=== PATIENT | female | born 1995 | race Caucasian/White ===

== ENCOUNTER 2017-11-02 07:22 | Emergency (ER) | payer SELFPAY ==
--- NOTE | 2017-11-02 09:01 | EDPHYS ---
Physician Documentation [facility] Name: Shanna Estrella Age: 22 yrs Sex: Female : 1995 Arrival Date: 11/02/2017 Time: 07:26 Bed 14 Private MD: ED Physician Francisco Becerra HPI: 11/02 08:15 This 22 yrs old Female presents to ER via Wheelchair with complaints of Ankle rico Injury. 08:15 The patient presents with decreased range of motion, pain. The complaints affect the rico right ankle. 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 - Social history:: Smoking status: Patient uses tobacco products, smokes one pack cigarettes per day. ROS: 08:15 Constitutional: Negative for fever, chills, and weight loss, Eyes: Negative for injury, rico pain, redness, and discharge, ENT: Negative for injury, pain, and discharge, Neck: Negative for injury, pain, and swelling, Cardiovascular: Negative for chest pain, palpitations, and edema, Respiratory: Negative for shortness of breath, cough, wheezing, and pleuritic chest pain, Abdomen/GI: Negative for abdominal pain, nausea, vomiting, diarrhea, and constipation, Back: Negative for injury and pain, : Negative for injury, bleeding, discharge, and swelling, Skin: Negative for injury, rash, and discoloration, Neuro: Negative for headache, weakness, numbness, tingling, and seizure, Psych: Negative for depression, anxiety, suicide ideation, homicidal ideation, and hallucinations, Allergy/Immunology: Negative for hives, rash, and allergies, Endocrine: Negative for neck swelling, polydipsia, polyuria, polyphagia, and marked weight changes, Hematologic/Lymphatic: Negative for swollen nodes, abnormal bleeding, and unusual bruising. 08:15 MS/extremity: Positive for injury or acute deformity, decreased range of motion, pain, swelling, tenderness, of the right ankle and lateral aspect of right foot. Exam: 08:15 Constitutional: This is a well developed, well nourished patient who is awake, alert, rico and in no acute distress. Head/Face: Normocephalic, atraumatic. Eyes: Pupils equal round and reactive to light, extra-ocular motions intact. Lids and lashes normal. Conjunctiva and sclera are non-icteric and not injected. Cornea within normal limits. Periorbital areas with no swelling, redness, or edema. ENT: Nares patent. No nasal discharge, no septal abnormalities noted. Tympanic membranes are normal and external auditory canals are clear. Oropharynx with no redness, swelling, or masses, exudates, or evidence of obstruction, uvula midline. Mucous membranes moist. Neck: Trachea midline, no thyromegaly or masses palpated, and no cervical lymphadenopathy. Supple, full range of motion without nuchal rigidity, or vertebral point tenderness. No Meningismus. Chest/axilla: Normal chest wall appearance and motion. Nontender with no deformity. No lesions are appreciated. Cardiovascular: Regular rate and rhythm with a normal S1 and S2. No gallops, murmurs, or rubs. Normal PMI, no JVD. No pulse deficits. Respiratory: Lungs have equal breath sounds bilaterally, clear to auscultation and percussion. No rales, rhonchi or wheezes noted. No increased work of breathing, no retractions or nasal flaring. Abdomen/GI: Soft, non-tender, with normal bowel sounds. No distension or tympany. No guarding or rebound. No evidence of tenderness throughout. Back: No spinal tenderness. No costovertebral tenderness. Full range of motion. Skin: Warm, dry with normal turgor. Normal color with no rashes, no lesions, and no evidence of cellulitis. Neuro: Awake and alert, GCS 15, oriented to person, place, time, and situation. Cranial nerves II-XII grossly intact. Motor strength 5/5 in all extremities. Sensory grossly intact. Cerebellar exam normal. Normal gait. Psych: Awake, alert, with orientation to person, place and time. Behavior, mood, and affect are within normal limits. 08:15 Musculoskeletal/extremity: ROM: limited active range of motion, limited passive range of motion, Circulation is intact in all extremities. Sensation intact. Compartment Syndrome exam of affected extremity: is normal. Joints: the right ankle displays deformity, pain at rest, painful range of motion, swelling, tenderness, DVT Exam: negative Homans' sign noted on exam, no appreciated bluish discoloration, no erythema, no increased warmth, pain, swelling, tenderness. Vital Signs: 07:36 BP 116 / 90; Pulse 108; Resp 17; Temp 99.1(O); Pulse Ox 99% on R/A; Weight 83.91 kg tw2 (R); Height 5 ft. 0 in. (152.40 cm) (R); Pain 8/10; 08:17 BP 111 / 84; Pulse 99; Resp 17; Pulse Ox 99% on R/A; tw2 09:30 BP 114 / 88; Pulse 98; Resp 17; Pulse Ox 99% on R/A; tw2 07:36 Body Mass Index 36.13 (83.91 kg, 152.40 cm) tw2 MDM: 07:30 Patient medically screened. [facility] 08:17 Data reviewed: vital signs, nurses notes, radiologic studies. [facility] 11/02 08:58 Order name: Urine Dipstick--Ancillary (enter results) 11/02 08:58 Order name: Urine --Ancillary (enter results) 11/02 07:40 Order name: Ankle Right 2 View XRAY 11/02 09:07 Order name: Urine --Ancillary [facility] 11/02 09:07 Order name: Urine Dipstick-Ancillary [facility] 11/02 07:57 Order name: Foot Right 2 View XRAY [facility] 11/02 08:26 Order name: Urine Dipstick-Ancillary (obtain specimen); Complete Time: 08:59 [facility] 11/02 08:26 Order name: Urine Test (obtain specimen); Complete Time: 08:59 [facility] 11/02 08:59 Order name: Post-op shoe; Complete Time: 09:03 [facility] 11/02 08:59 Order name: Crutches; Complete Time: 09:03 [facility] 11/02 09:19 Order name: RAD EDND Administered Medications: 09:12 Drug: Motrin 600 mg Route: PO; tw2 09:35 Follow up: Response: No adverse reaction tw2 Disposition: 11/02/17 09:00 Discharged to Home. Impression: Sprain of ankle, Nondisplaced fracture of fifth metatarsal bone, right foot - clinically. - Condition is Stable. - Discharge Instructions: Ankle Sprain, Metatarsal Fracture, Undisplaced. - Prescriptions for Ibuprofen 600 mg Oral Tablet - take 1 tablet by ORAL route every 8 hours As needed take with food; 21 tablet. Tylenol- Codeine #3 300-30 mg Oral Tablet - take 2 tablets by ORAL route every 6 hours As needed; 24 tablet. - Medication Reconciliation Form, Thank You Letter, Antibiotic Education, Prescription Opioid Use, Work release form form. - Follow up: Private Physician; When: 2 - 3 days; Reason: Recheck today's complaints, Continuance of care, Re-evaluation by your physician. Follow up: Tay Castorena MD; When: 2 - 3 days; Reason: Recheck today's complaints, Re-evaluation by your physician. - Problem is new. - Symptoms have improved. Signatures: Dispatcher [employer] Francisco Eagle MD MD cha Wise, Tara, RN RN tw2
--- NOTE | 2017-11-02 09:01 | ER ---
Nurse's Notes [facility] Name: Shanna Estrella Age: 22 yrs Sex: Female : 1995 Arrival Date: 11/02/2017 Time: 07:26 Bed 14 Private MD: Diagnosis: Sprain of ankle;Nondisplaced fracture of fifth metatarsal bone, right foot-clinically Presentation: 11/02 07:33 Presenting complaint: Patient states: I rolled my ankle yesterday, my right ankle, it tw2 hurts to walk on and i get a jolt of lightening when i try to put pressure on it. Transition of care: patient was not received from another setting of care. Onset of symptoms was November 01, 2017 at 08:00. Care prior to arrival: None. 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 - Social history:: Smoking status: Patient uses tobacco products, smokes one pack cigarettes per day. Screenin:38 Abuse screen: Denies threats or abuse. Nutritional screening: No deficits noted. tw2 Tuberculosis screening: No symptoms or risk factors identified. Fall Risk None identified. Assessment: 07:37 General: Appears in no apparent distress. obese, unkempt, Behavior is calm, tw2 cooperative, appropriate for age. Pain: Complains of pain in right ankle, right Achilles and anterior aspect of right ankle. Neuro: Level of Consciousness is awake, alert, obeys commands, Oriented to person, place, time, situation. Cardiovascular: Denies chest pain, shortness of breath, Capillary refill < 3 seconds Patient's skin is warm and dry. Respiratory: Airway is patent Respiratory effort is even, unlabored, Respiratory pattern is regular, symmetrical. GI: No signs and/or symptoms were reported involving the gastrointestinal system. : No signs and/or symptoms were reported regarding the genitourinary system. EENT: No signs and/or symptoms were reported regarding the EENT system. Derm: Skin is intact, is healthy with good turgor, Skin temperature is warm. Musculoskeletal: Swelling present in anterior aspect of right ankle. 08:18 Reassessment: Patient appears in no apparent distress at this time. No changes from tw2 previously documented assessment. Patient and/or family updated on plan of care and expected duration. Pain level reassessed. Patient is alert, oriented x 3, equal unlabored respirations, skin warm/dry/pink. 09:38 Reassessment: Patient appears in no apparent distress at this time. No changes from tw2 previously documented assessment. Patient and/or family updated on plan of care and expected duration. Pain level reassessed. Patient is alert, oriented x 3, equal unlabored respirations, skin warm/dry/pink. Vital Signs: 07:36 BP 116 / 90; Pulse 108; Resp 17; Temp 99.1(O); Pulse Ox 99% on R/A; Weight 83.91 kg tw2 (R); Height 5 ft. 0 in. (152.40 cm) (R); Pain 8/10; 08:17 BP 111 / 84; Pulse 99; Resp 17; Pulse Ox 99% on R/A; tw2 09:30 BP 114 / 88; Pulse 98; Resp 17; Pulse Ox 99% on R/A; tw2 07:36 Body Mass Index 36.13 (83.91 kg, 152.40 cm) tw2 ED Course: 07:26 Patient arrived in ED. mr 07:30 Francisco Becerra MD is Attending Physician. rico 07:32 Madison Laws, BANG is Primary Nurse. tw2 07:33 Triage completed. tw2 07:35 Bed in low position. Call light in reach. Pulse ox on. NIBP on. tw2 07:36 Arm band placed on. tw2 07:38 No provider procedures requiring assistance completed. tw2 09:00 Tay Castorena MD is Referral Physician. rico 09:01 Urine collected: clean catch specimen, cloudy, marika colored. jb1 09:16 Crutch training done. Ortho shoe applied to right foot. Right pedal pulse was present jb1 and within normal limits before and after application of ortho shoe. Capillary refill was two seconds before and after application of ortho shoe. 09:38 Patient did not have IV access during this emergency room visit. tw2 Administered Medications: 09:12 Drug: Motrin 600 mg Route: PO; tw2 09:35 Follow up: Response: No adverse reaction tw2 Outcome: 09:00 Discharge ordered by . rico 09:38 Discharged to home with crutches, with family. tw2 09:38 Condition: stable 09:38 Discharge instructions given to patient, family, Instructed on discharge instructions, follow up and referral plans. no drinking with medication, no driving heavy equipment, medication usage, safety practices, crutch walking, Demonstrated understanding of instructions, follow-up care, medications, crutch walking, Prescriptions given X 2. 09:39 Patient left the ED. tw2 Signatures: Lorenzo Ferrer jb1 Francisco Becerra MD MD cha Rivera, Maria mr Wise, Tara, RN RN tw2
[2017-11-02 09:06] LABS: Urine Blood NEGATIVE (NEG); Urine Glucose NEGATIVE (NEG); Urine Protein NEGATIVE (NEG); Urine Specific Gravity 1.025 (1.005-1.030); Urine pH 5.5 (5.0-7.0)
--- NOTE | 2017-11-02 09:19 | RAD REPORT ---
EXAM DESCRIPTION: RAD - Ankle Right 2 View - 11/02/2017 8:52 am CLINICAL HISTORY: Twisting injury to right ankle. COMPARISON: 12/07/2016 FINDINGS: Multiple projections of the right ankle and right foot are submitted. Small posterior calcaneal spur is noted. Mild lateral soft tissue swelling is seen. No acute fracture or dislocation is identified.
[2017-11-02] MEDS ORDERED: IBUPROFEN 400 MG TAB ONE (09:24)
[2017-11-02] MEDS ORDERED: IBUPROFEN 200 MG TAB PO ONE (09:24)
== END 2017-11-02 09:39 | disposition home or self-care (01) ==
LOC: ER 07:22
DX: S92.354A Nondisplaced fracture of fifth metatarsal bone, right foot, initial encounter for closed fracture (principal); S93.401A Sprain of unspecified ligament of right ankle, initial encounter; X58.XXXA Exposure to other specified factors, initial encounter; Y93.01 Activity, walking, marching and hiking; Y92.89 Other specified places as the place of occurrence of the external cause; Z88.0 Allergy status to penicillin; Z88.1 Allergy status to other antibiotic agents; Z88.8 Allergy status to other drugs, medicaments and biological substances; Z91.048 Other nonmedicinal substance allergy status; F17.210 Nicotine dependence, cigarettes, uncomplicated
CPT/HCPCS: 81003; 81025; 99284

== ENCOUNTER 2017-11-27 22:04 | Emergency (ER) | payer SELFPAY ==
[2017-11-27 23:10] LABS: Urine Blood NEGATIVE (NEG); Urine Glucose NEGATIVE (NEG); Urine Protein NEGATIVE (NEG); Urine Specific Gravity 1.025 (1.005-1.030)
[2017-11-27 23:10] LABS: Urine Specific Gravity 1.025 (1.005-1.030)
--- NOTE | 2017-11-28 01:09 | ER ---
Nurse's Notes [facility] Name: Shanna Estrella Age: 22 yrs Sex: Female : 1995 Arrival Date: 11/27/2017 Time: 22:07 Bed 14 Private MD: Diagnosis: Contusion of right foot Presentation: 11/27 22:14 Presenting complaint: Patient states: I took my medicine for pain for my broken foot la1 and I think its causing me to have abd cramping. Transition of care: patient was not received from another setting of care. Onset of symptoms was November 27, 2017. Care prior to arrival: None. 22:14 Method Of Arrival: EMS: [facility] la1 22:14 Acuity: ELI 4 la1 Historical: - Allergies: 22:14 Amoxicillin; la1 22:14 Lamictal; la1 22:14 lamotrigine; la1 22:14 PENICILLINS; la1 22:14 Tape; la1 - Home Meds: 11/28 01:22 not taking any, cannot afford them [Active]; tl2 - PMHx: 11/27 22:14 chiari malformation; Depression; epilepsy; hydrocephaly; Pneumonia; PTSD; la1 - Immunization history:: Adult Immunizations up to date. - Social history:: Smoking status: Patient uses tobacco products, smokes one-half pack cigarettes per day. Screenin:20 Abuse screen: Denies threats or abuse. Nutritional screening: No deficits noted. tl2 Tuberculosis screening: No symptoms or risk factors identified. Fall Risk Gait- Impaired (20 pts.). Assessment: 22:20 General: Appears in no apparent distress. uncomfortable, Behavior is calm, cooperative, tl2 appropriate for age. Pain: Complains of pain in right foot. Neuro: Level of Consciousness is awake, alert, obeys commands, Oriented to person, place, time, situation. Cardiovascular: Denies chest pain. Respiratory: Airway is patent Respiratory effort is even, unlabored, Respiratory pattern is regular, symmetrical. GI: Bowel sounds present X 4 quads. Abd is soft and non tender Reports cramping, nausea. : No signs and/or symptoms were reported regarding the genitourinary system. Derm: Skin is pink, warm \T\ dry. Musculoskeletal: Circulation, motion, and sensation intact. Range of motion: limited in right ankle. 23:57 Reassessment: Patient appears in no apparent distress at this time. Patient and/or tl2 family updated on plan of care and expected duration. Pain level reassessed. Patient is alert, oriented x 3, equal unlabored respirations, skin warm/dry/pink. 11/28 01:19 Reassessment: Patient appears in no apparent distress at this time. Patient and/or tl2 family updated on plan of care and expected duration. Pain level reassessed. Patient is alert, oriented x 3, equal unlabored respirations, skin warm/dry/pink. Pt verbalized understanding of discharge instructions, need for follow up and prescription usage. Kingsley bandage applied to right foot. Vital Signs: 11/27 22:14 BP 151 / 100; Pulse 94; Resp 16; Temp 97.7(TE); Pulse Ox 100% on R/A; Weight 86.18 kg; la1 Height 5 ft. 1 in. (154.94 cm); 23:54 BP 108 / 79; Pulse 90; Resp 17; Temp 98.2; Pulse Ox 98% ; tl1 11/28 01:19 BP 113 / 97; Pulse 95; Resp 20; Temp 98.3(O); Pulse Ox 98% on R/A; Pain 5/10; tl2 11/27 22:14 Body Mass Index 35.90 (86.18 kg, 154.94 cm) la1 ED Course: 11/27 22:07 Patient arrived in ED. do 22:14 Triage completed. la1 22:15 Arm band placed on right wrist. la1 22:20 Patient has correct armband on for positive identification. Bed in low position. Call tl2 light in reach. Side rails up X 1. 22:32 Manny Torres PA is PHCP. jr8 22:32 Matt Shields MD is Attending Physician. jr8 22:42 Rocío Jones RN is Primary Nurse. tl2 11/28 00:04 X-ray completed. Portable x-ray completed in exam room. Patient tolerated procedure jw2 well. 00:53 XRAY Foot RIGHT 3 View In Process Unspecified. EDMS 01:08 Damir Ragsdale MD is Referral Physician. jr8 01:19 No provider procedures requiring assistance completed. Patient did not have IV access tl2 during this emergency room visit. Administered Medications: No medications were administered Outcome: 01:08 Discharge ordered by MD. gonzalez 01:19 Discharged to home via wheelchair, with family. tl2 01:19 Condition: stable 01:19 Discharge instructions given to patient, Instructed on discharge instructions, follow up and referral plans. no driving heavy equipment, medication usage, Demonstrated understanding of instructions, follow-up care, medications, Prescriptions given X 1. 01:53 Patient left the ED. tl2 Signatures: Dispatcher [employer] EDMS Manny Torres PA PA jr8 Attema, Lee, RN RN la1 Yancy Bui RN RN tl1 Nathaly Abernathy Jenni jw2 Rocío Jones, RN RN tl2
--- NOTE | 2017-11-28 01:09 | EDPHYS ---
Physician Documentation [facility] Name: Shanna Estrella Age: 22 yrs Sex: Female : 1995 Arrival Date: 11/27/2017 Time: 22:07 Bed 14 Private MD: ED Physician Matt Shields HPI: 11/28 00:10 This 22 yrs old Female presents to ER via EMS with complaints of foot pain jr8 and abdominal cramping. 00:10 Patient had possible fracture of right foot back on 11/02 after a fall. Stated that jr8 since then it continues to hurt. Has not followed up with orthopedics. Stated that the medicine given to her has started to make her abdominal region cramp. Denies n/v/d, fevers . Severity of symptoms: At their worst the symptoms were mild in the emergency department the symptoms are unchanged. The patient has not experienced similar symptoms in the past. The patient has not recently seen a physician. Historical: - Allergies: 11/27 22:14 Amoxicillin; la1 22:14 Lamictal; la1 22:14 lamotrigine; la1 22:14 PENICILLINS; la1 22:14 Tape; la1 - Home Meds: 11/28 01:22 not taking any, cannot afford them [Active]; tl2 - PMHx: 11/27 22:14 chiari malformation; Depression; epilepsy; hydrocephaly; Pneumonia; PTSD; la1 - Immunization history:: Adult Immunizations up to date. - Social history:: Smoking status: Patient uses tobacco products, smokes one-half pack cigarettes per day. ROS: 11/28 00:10 Eyes: Negative for injury, pain, redness, and discharge, ENT: Negative for injury, jr8 pain, and discharge, Neck: Negative for injury, pain, and swelling, Cardiovascular: Negative for chest pain, palpitations, and edema, Respiratory: Negative for shortness of breath, cough, wheezing, and pleuritic chest pain, Back: Negative for injury and pain, Skin: Negative for injury, rash, and discoloration, Neuro: Negative for headache, weakness, numbness, tingling, and seizure. Abdomen/GI: Positive for abdominal cramps, Negative for nausea, vomiting, and diarrhea, abdominal distension, anorexia, dysphagia, hematemesis, black/tarry stool, rectal pain, rectal bleeding, bowel incontinence, flatulence. MS/extremity: Positive for pain, tenderness, of the right foot. Exam: 00:10 Eyes: Pupils equal round and reactive to light, extra-ocular motions intact. Lids and jr8 lashes normal. Conjunctiva and sclera are non-icteric and not injected. Cornea within normal limits. Periorbital areas with no swelling, redness, or edema. ENT: Nares patent. No nasal discharge, no septal abnormalities noted. Tympanic membranes are normal and external auditory canals are clear. Oropharynx with no redness, swelling, or masses, exudates, or evidence of obstruction, uvula midline. Mucous membranes moist. Neck: Trachea midline, no thyromegaly or masses palpated, and no cervical lymphadenopathy. Supple, full range of motion without nuchal rigidity, or vertebral point tenderness. No Meningismus. Cardiovascular: Regular rate and rhythm with a normal S1 and S2. No gallops, murmurs, or rubs. Normal PMI, no JVD. No pulse deficits. Respiratory: Lungs have equal breath sounds bilaterally, clear to auscultation and percussion. No rales, rhonchi or wheezes noted. No increased work of breathing, no retractions or nasal flaring. Abdomen/GI: Soft, non-tender, with normal bowel sounds. No distension or tympany. No guarding or rebound. No evidence of tenderness throughout. Back: No spinal tenderness. No costovertebral tenderness. Full range of motion. Skin: Warm, dry with normal turgor. Normal color with no rashes, no lesions, and no evidence of cellulitis. Neuro: Awake and alert, GCS 15, oriented to person, place, time, and situation. Cranial nerves II-XII grossly intact. Motor strength 5/5 in all extremities. Sensory grossly intact. Cerebellar exam normal. Normal gait. 00:10 Musculoskeletal/extremity: Extremities: grossly normal except: noted in the right foot: pain, tenderness, ROM: intact in all extremities, limited active range of motion due to pain, limited passive range of motion due to pain, Circulation is intact in all extremities. Pulses: noted to be 2+ in the right radial artery, right posterior tibial artery, right dorsalis pedis artery, left radial artery, left posterior tibial artery and left dorsalis pedis artery, Perfusion: the patient is normally perfused throughout, pink, warm, noted to have brisk capillary refill, Perfusion: the extremity is normally perfused throughout, pink, warm, with brisk capillary refill, Sensation intact. Vital Signs: 11/27 22:14 BP 151 / 100; Pulse 94; Resp 16; Temp 97.7(TE); Pulse Ox 100% on R/A; Weight 86.18 kg; la1 Height 5 ft. 1 in. (154.94 cm); 23:54 BP 108 / 79; Pulse 90; Resp 17; Temp 98.2; Pulse Ox 98% ; tl1 11/28 01:19 BP 113 / 97; Pulse 95; Resp 20; Temp 98.3(O); Pulse Ox 98% on R/A; Pain 5/10; tl2 11/27 22:14 Body Mass Index 35.90 (86.18 kg, 154.94 cm) la1 MDM: 11/27 22:32 Patient medically screened. jr8 11/28 01:07 Data reviewed: vital signs, nurses notes, old medical records, radiologic studies, jr8 plain films, and as a result, I will discharge patient. Data interpreted: Pulse oximetry: on room air is 98 %. Interpretation: normal. Counseling: I had a detailed discussion with the patient and/or guardian regarding: the historical points, exam findings, and any diagnostic results supporting the discharge/admit diagnosis, radiology results, the need for outpatient follow up, a orthopedic surgeon, to return to the emergency department if symptoms worsen or persist or if there are any questions or concerns that arise at home. 11/27 23:05 Order name: Urine Dipstick--Ancillary (enter results); Complete Time: 23:55 [facility] 11/27 23:06 Order name: Urine --Ancillary (enter results); Complete Time: 23:55 [facility] 11/27 23:46 Order name: XRAY Foot RIGHT 3 View jr8 Administered Medications: No medications were administered Disposition: 05:41 Co-signature as Attending Physician, Matt Shields MD. ma2 Disposition: 11/28/17 01:08 Discharged to Home. Impression: Contusion of right foot. - Condition is Stable. - Discharge Instructions: Foot Contusion. - Prescriptions for Tramadol 50 mg Oral Tablet - take 1 tablet by ORAL route every 8 hours as needed; 20 tablet. - Medication Reconciliation Form, Thank You Letter, Antibiotic Education, Prescription Opioid Use, Family Work Release form. - Follow up: Damir Ragsdale MD; When: 5 - 6 days; Reason: Recheck today's complaints, Continuance of care, Re-evaluation by your physician. - Problem is new. - Symptoms have improved. Signatures: Dispatcher [employer] EDManny Cain PA PA jr8 Sonu Ng RN RN la1 Rocío Jones RN RN tl2 Matt Shields MD MD ma2
--- NOTE | 2017-11-28 07:34 | RAD REPORT ---
EXAM DESCRIPTION: RAD - Foot Right 3 View - 11/28/2017 12:52 am CLINICAL HISTORY: Foot pain, November 02 COMPARISON: Foot and ankle images November 02. FINDINGS: No acute fracture, dislocation or periosteal reaction. No acute bone or joint finding is i dentifiable. No new bone or joint finding seen. No air or foreign body in the soft tissues. Patient gives a history of a broken foot. No abnormality seen on the prior examination and no new fin ding or interval change on the current examination. IMPRESSION: No acute bone or joint finding.
== END 2017-11-28 01:53 | disposition home or self-care (01) ==
LOC: ER 22:04
DX: S90.31XA Contusion of right foot, initial encounter (principal); W19.XXXA Unspecified fall, initial encounter; F17.210 Nicotine dependence, cigarettes, uncomplicated; Z88.0 Allergy status to penicillin; Z88.8 Allergy status to other drugs, medicaments and biological substances; Z91.048 Other nonmedicinal substance allergy status
CPT/HCPCS: 81003; 81025; 99283

== ENCOUNTER 2017-12-24 20:13 | Emergency (ER) | payer SELFPAY ==
[2017-12-24 22:06] LABS: Absolute Lymphocytes (CBC) 1.2 K/uL (0.7-4.9); Absolute Monocytes 0.5 K/uL (0.1-1.3); Absolute Neutrophil 8.7 K/uL (1.8-8.0); Basophils % 0.6 % (0-1.3); Eosinophils % 0.2 % (0-4.4); Hematocrit 42.8 % (36.0-45.0); Lymphocytes % 11.3 % (15.3-44.8); MCH 28.9 pg (27.0-35.0); MCV 83.9 fL (80-100); MPV 8.6 fL (7.6-11.3); Monocytes % 4.7 % (3.3-12.3)
[2017-12-24 22:15] LABS: Protime INR 1.06
[2017-12-24 22:19] LABS: Glucose Level 98 mg/dL (65-120)
[2017-12-24 22:25] LABS: ALT/SGPT 12 IU/L (10-60); AST/SGOT 16 IU/L (10-42); Albumin 4.4 g/dL (3.2-5.5); Alkaline Phosphatase 80 IU/L (42-121); BUN Blood Urea Nitrogen 9 mg/dL (6-20); Bicarbonate 25 mEq/L (21-31); Bilirubin Direct 0.2 mg/dL (0-0.2); Bilirubin Total 0.7 mg/dL (0.3-1.2); Potassium 4.1 mEq/L (3.6-5.0); Protein, Total 8.2 g/dL (6.0-8.3); Sodium Level 139 mEq/L (135-145)
[2017-12-24 22:26] LABS: Alcohol Serum/Plasma < 10 mg/dl; Salicylates Level < 4.0 mg/dl (<30)
[2017-12-24 22:28] LABS: Barbiturates NEGATIVE; Benzodiazepines NEGATIVE; Cocaine NEGATIVE; METHAMPHETAM NEGATIVE; Opiates NEGATIVE; Phencyclidine NEGATIVE; THC Cannibis POSITIVE
[2017-12-24 22:30] LABS: Urine Blood TRACE (NEG); Urine Glucose NEGATIVE (NEG); Urine Protein TRACE (NEG); Urine Specific Gravity >1.030 (1.005-1.030); Urine pH 5.5 (5.0-7.0)
[2017-12-24] MEDS ORDERED: NA CHLORIDE 0.9% 1,000 ML ONE (23:26)
--- NOTE | 2017-12-25 00:58 | ER ---
Nurse's Notes [facility] Name: Shanna Estrella Age: 22 yrs Sex: Female : 1995 Arrival Date: 12/24/2017 Time: 20:14 Bed 28 Private MD: Diagnosis: Seizure Presentation: 12/24 20:27 Presenting complaint: Patient states: Seizure today at 1900. Reports she has a HX of aj seizures but has not had one in 12 years. Reports seizure lasted 2-3 minutes. Transition of care: patient was not received from another setting of care. Onset of symptoms was December 24, 2017. Initial Sepsis Screen: Does the patient meet any 2 criteria? No. Patient's initial sepsis screen is negative. Does the patient have a suspected source of infection? No. Patient's initial sepsis screen is negative. Care prior to arrival: None. 20:27 Method Of Arrival: Wheelchair aj 20:27 Acuity: ELI 3 aj Triage Assessment: 20:32 General: Appears in no apparent distress. comfortable, Behavior is calm, cooperative, aj appropriate for age. Pain: Denies pain. Neuro: Level of Consciousness is awake, alert, obeys commands, Oriented to person, place, time, situation, Appropriate for age Seizure activity reported prior to arrival. Respiratory: Airway is patent Respiratory effort is even, unlabored, Respiratory pattern is regular, symmetrical. Derm: Skin is intact, is healthy with good turgor, Skin is pink, warm \T\ dry. normal. 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 - Social history:: Smoking status: Patient uses tobacco products, smokes one-half pack cigarettes per day. Screenin/11 00:18 Abuse screen: Denies threats or abuse. Nutritional screening: No deficits noted. mb3 Tuberculosis screening: No symptoms or risk factors identified. Fall Risk Fall in past 12 months (25 points). Secondary diagnosis (15 points) IV access (20 points). Ambulatory Aid- None/Bed Rest/Nurse Assist (0 pts). Gait- Normal/Bed Rest/Wheelchair (0 pts) Mental Status- Oriented to own ability (0 pts). Total Zamora Fall Scale indicates High Risk Score (45 or more points). Fall prevention measures have been instituted. Placed Close to Nursing Station Frequent Obs/Assessments Occuring Family Present and informed to notify staff if the need to leave the bedside. Vital Signs: 12/24 20:32 BP 125 / 94; Pulse 111; Resp 21; Temp 98.6; Pulse Ox 95% on R/A; Weight 81.65 kg; aj Height 5 ft. 2 in. (157.48 cm); 12/25 00:33 BP 93 / 77; Pulse 89; Resp 16; Pulse Ox 100% on R/A; mb3 12/24 20:32 Body Mass Index 32.92 (81.65 kg, 157.48 cm) aj Kelli Coma Score: 12/24 20:32 Eye Response: spontaneous(4). Verbal Response: oriented(5). Motor Response: obeys aj commands(6). Total: 15. ED Course: 20:14 Patient arrived in ED. ds1 20:29 Triage completed. aj 20:32 Arm band placed on left wrist. Patient placed in waiting room. aj 20:45 Seizure precautions initiated. mb3 20:45 Inserted saline lock: 22 gauge in left forearm, using aseptic technique. mb3 21:25 Francisco Rodriguez PA is PHCP. cp 21:26 Darius Tam MD is Attending Physician. cp 21:41 Segundo Loo, RN is Primary Nurse. mb3 23:11 CT Head Brain wo Cont In Process Unspecified. EDMS 12/25 00:56 aFdy Pierre MD is Referral Physician. cp 01:18 No provider procedures requiring assistance completed. IV discontinued, intact, mb3 bleeding controlled, No redness/swelling at site. Pressure dressing applied. Administered Medications: 12/24 23:30 Drug: NS 0.9% 1000 ml Route: IV; Rate: 1 bolus; Site: right antecubital; mb3 Outcome: 12/25 00:57 Discharge ordered by . cp 01:19 Discharged to home ambulatory, with family. mb3 01:19 Condition: stable 01:19 Discharge instructions given to patient, family, Instructed on discharge instructions, follow up and referral plans. Demonstrated understanding of instructions, follow-up care. 01:20 Patient left the ED. mb3 Signatures: Dispatcher [employer] Annalee Ge, Farhana Ernst RN ds1 Francisco Rodriguez PA PA cp Barnett, Mark, RN RN mb3
--- NOTE | 2017-12-25 00:58 | EDPHYS ---
Physician Documentation [facility] Name: Shanna Estrella Age: 22 yrs Sex: Female : 1995 Arrival Date: 12/24/2017 Time: 20:14 Bed 28 Private MD: ED Physician Darius Tam HPI: 12/24 21:45 This 22 yrs old Female presents to ER via Wheelchair with complaints of cp Probable Seizure. 21:45 The patient presents after having a single isolated seizure, that lasted 2-3 minutes, cp the episode(s) was witnessed, by a significant other, boyfriend. 21:45 Character of seizure(s): Loss of consciousness: the patient experienced loss of cp consciousness, Incontinence: none. Seizure onset: today, at 19:00. Context: occurred at home, occurred while the patient was walking, Contributing factors: unknown. Seizure Hx: Last seizure: The patient's last seizure was approximately 11 year(s) ago. Associated injury: The patient did not suffer any apparent associated injury. Current symptoms: headache. 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 - Social history:: Smoking status: Patient uses tobacco products, smokes one-half pack cigarettes per day. ROS: 21:50 Constitutional: Negative for body aches, chills, fever, poor PO intake. cp 21:50 Eyes: Negative for injury, pain, redness, and discharge. cp 21:50 ENT: Negative for drainage from ear(s), ear pain, sore throat, difficulty swallowing, difficulty handling secretions. 21:50 Cardiovascular: Negative for chest pain, edema, palpitations. 21:50 Respiratory: Negative for cough, shortness of breath, wheezing. 21:50 Abdomen/GI: Negative for abdominal pain, nausea, vomiting, and diarrhea, black/tarry stool, rectal bleeding. 21:50 Back: Negative for pain at rest, pain with movement, radiated pain. 21:50 : Negative for urinary symptoms. 21:50 Skin: Negative for cellulitis, rash. 21:50 Neuro: Positive for headache, history of seizure. 21:50 All other systems are negative. Exam: 22:00 Constitutional: The patient appears in no acute distress, alert, awake, cp non-diaphoretic, non-toxic, well developed, well nourished, obese. 22:00 Head/Face: Normocephalic, atraumatic. cp 22:00 Eyes: Periorbital structures: appear normal, Pupils: equal, round, and reactive to light and accomodation, Extraocular movements: intact throughout, Conjunctiva: normal, no exudate, no injection, Sclera: no appreciated abnormality, Lids and lashes: appear normal, bilaterally, Visual grant: are intact. 22:00 ENT: External ear(s): are unremarkable, Ear canal(s): are normal, clear, TM's: dullness, bilaterally, Nose: is normal, Mouth: Lips: moist, Oral mucosa: pink and intact, moist, Posterior pharynx: is normal, airway is patent, no erythema, no exudate, Voice: is normal. 22:00 Neck: ROM/movement: is normal, is supple, without pain, no range of motions limitations, no meningismus, no nuchal rigidity, Lymph nodes: no appreciated lymphadenopathy. 22:00 Chest/axilla: Inspection: normal, Palpation: is normal, no crepitus, no tenderness. 22:00 Cardiovascular: Rate: tachycardic, Rhythm: regular. 22:00 Respiratory: the patient does not display signs of respiratory distress, Respirations: normal, no use of accessory muscles, no retractions, no splinting, no tachypnea, labored breathing, is not present, Breath sounds: are clear throughout, no decreased breath sounds, no stridor, no wheezing. 22:00 Abdomen/GI: Inspection: obese Bowel sounds: active, all quadrants, Palpation: abdomen is soft and non-tender, in all quadrants, voluntary guarding, is not appreciated, involuntary guarding, is not appreciated. 22:00 Back: pain, is absent, ROM is normal. 22:00 Skin: cellulitis, is not appreciated, no rash present. 22:00 Neuro: Orientation: to person, place \T\ time. Mentation: lucid, able to follow commands, Cerebellar function: is grossly normal, Motor: moves all fours, strength is normal, Sensation: no obvious gross deficits. Vital Signs: 20:32 BP 125 / 94; Pulse 111; Resp 21; Temp 98.6; Pulse Ox 95% on R/A; Weight 81.65 kg; aj Height 5 ft. 2 in. (157.48 cm); 12/25 00:33 BP 93 / 77; Pulse 89; Resp 16; Pulse Ox 100% on R/A; mb3 12/24 20:32 Body Mass Index 32.92 (81.65 kg, 157.48 cm) aj Kelli Coma Score: 12/24 20:32 Eye Response: spontaneous(4). Verbal Response: oriented(5). Motor Response: obeys aj commands(6). Total: 15. MDM: 21:27 Patient medically screened. 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 12/25 00:54 Data reviewed: vital signs, nurses notes, lab test result(s), EKG, radiologic studies, cp CT scan. 00:55 ED course: VSS. No seizure activity observed or reported while patient in ED. Will cp discharge to home for continued monitoring. 12/24 21:40 Order name: Acetaminophen; Complete Time: 23:28 cp 12/24 23:28 Interpretation: Reviewed. 12/24 21:40 Order name: Basic Metabolic Panel; Complete Time: 23:28 cp 12/24 21:40 Order name: CBC with Diff; Complete Time: 22:23 cp 12/24 22:23 Interpretation: Normal except: RBC 5.10; KADIE% 83.2; LYM% 11.3; NEUT A 8.7. cp 12/24 21:40 Order name: ETOH Level; Complete Time: 23:28 cp 12/24 21:40 Order name: Hepatic Function; Complete Time: 23:28 cp 12/24 23:28 Interpretation: Normal except: GLOB 3.8. cp 12/24 21:40 Order name: PT-INR; Complete Time: 23:28 cp 12/24 21:40 Order name: Seizure Precautions cp 12/24 21:40 Order name: Ptt, Activated; Complete Time: 23:28 cp 12/24 21:40 Order name: Salicylate; Complete Time: 23:28 cp 12/24 21:40 Order name: Urine Drug Screen; Complete Time: 23:28 cp 12/24 23:28 Interpretation: Normal except: THC POSITIVE. cp 12/24 22:13 Order name: Urine Dipstick--Ancillary (enter results); Complete Time: 23:28 em1 12/24 23:29 Interpretation: Normal except: USPGR >1.030; UKET 2+; UBLD TRACE. cp 12/24 22:24 Order name: CT Head Brain wo Cont cp 12/24 21:40 Order name: Urine Test (obtain specimen); Complete Time: 22:12 cp 12/24 21:40 Order name: EKG - Nurse/Tech; Complete Time: 22:41 cp 12/24 21:40 Order name: IV Saline Lock; Complete Time: 22:10 cp 12/24 21:40 Order name: Labs collected and sent; Complete Time: 22:10 cp 12/24 21:40 Order name: Urine Dipstick-Ancillary (obtain specimen); Complete Time: 22:10 cp Administered Medications: 12/24 23:30 Drug: NS 0.9% 1000 ml Route: IV; Rate: 1 bolus; Site: right antecubital; mb3 Disposition: 12/25 04:46 Co-signature as Attending Physician, Darius Tam MD. rn Disposition: 12/25/17 00:57 Discharged to Home. Impression: Seizure. - Condition is Stable. - Discharge Instructions: Seizure, Adult. - Medication Reconciliation Form, Thank You Letter, Antibiotic Education, Prescription Opioid Use, Family Work Release form. - Follow up: Fady Pierre MD; When: 1 - 2 days; Reason: Recheck today's complaints. - Problem is an acute exacerbation. - Symptoms have improved. Signatures: Dispatcher [employer] Annalee Ge RN RN aj Nieto, Roman, MD MD rn Page, Corey, PA PA cp Barnett, Mark, RN RN mb3 Corrections: (The following items were deleted from the chart) 01:20 00:57 12/25/2017 00:57 Discharged to Home. Impression: Seizure. Condition is Stable. mb3 Forms are Medication Reconciliation Form, Thank You Letter, Antibiotic Education, Prescription Opioid Use. Follow up: Fady Pierre; When: 1 - 2 days; Reason: Recheck today's complaints. Problem is an acute exacerbation. Symptoms have improved. cp
--- NOTE | 2017-12-25 08:13 | RAD REPORT ---
EXAM DESCRIPTION: CT - Head Brain Wo Cont - 12/25/2017 6:30 am CLINICAL HISTORY: Seizure, history of Chiari malformation. COMPARISON: 05/15/2017 and more remote studies. TECHNIQUE: All CT scans are performed using dose optimization technique as appropriate and may inclu de automated exposure control or mA/KV adjustment according to patient size. FINDINGS: No acute hemorrhage, midline shift or hydrocephalus. Mild chronic extra-axial fluid noted along the right convexity superiorly, unchanged. 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 Evidence of previous posterior fossa craniotomy noted. 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 Mild mucoperiosteal thickening in the sphenoid sinus. The paranasal sinuses and mastoids are otherwis e clear. No fracture seen. IMPRESSION: No acute intracranial abnormality.
== END 2017-12-25 01:20 | disposition home or self-care (01) ==
LOC: ER 20:13
DX: R56.9 Unspecified convulsions (principal); F17.210 Nicotine dependence, cigarettes, uncomplicated; Z88.0 Allergy status to penicillin; Z88.1 Allergy status to other antibiotic agents; Z88.8 Allergy status to other drugs, medicaments and biological substances
CPT/HCPCS: 36415; 70450; 80048; 80076; 80307; 80320; 80329; 81003; 85025; 85610; 85730; 99283; J7030

== ENCOUNTER 2018-01-15 06:23 | Emergency (ER) | payer SELFPAY ==
--- NOTE | 2018-01-15 06:50 | EKG ---
Test Date: 2018-01-15 Test Time: 06:33:00 Ortho Assistant: DIGNA MEASUREMENT RESULTS: Intervals: Rate: 94 WI: 118 QRSD: 82 QT: 336 QTc: 420 [place]: P: 38 WI: 118 QRS: 16 T: 37 INTERPRETIVE STATEMENTS: Normal sinus rhythm Normal ECG No previous ECG available for comparison Electronically Signed On 01-15-18 06:49:17 CDT by Bob Chapa
[2018-01-15 06:55] LABS: Absolute Lymphocytes (CBC) 3.1 K/uL (0.7-4.9); Absolute Monocytes 0.7 K/uL (0.1-1.3); Basophils % 1.1 % (0-1.3); Eosinophils % 1.4 % (0-4.4); Hematocrit 40.7 % (36.0-45.0); Lymphocytes % 30.5 % (15.3-44.8); MCH 28.9 pg (27.0-35.0); MCV 85.6 fL (80-100); MPV 8.5 fL (7.6-11.3); Monocytes % 6.9 % (3.3-12.3); RBC Red Blood Cell Count 4.76 M/uL (3.86-4.86)
[2018-01-15 06:58] LABS: Protime INR 0.95
[2018-01-15 07:00] LABS: Bicarbonate 22 mEq/L (21-31); Glucose Level 101 mg/dL (65-120); Potassium 3.5 mEq/L (3.6-5.0); Sodium Level 139 mEq/L (135-145)
[2018-01-15 07:06] LABS: ALT/SGPT 17 IU/L (10-60); AST/SGOT 21 IU/L (10-42); Albumin 4.1 g/dL (3.2-5.5); Alkaline Phosphatase 71 IU/L (42-121); BUN Blood Urea Nitrogen 12 mg/dL (6-20); Bilirubin Direct 0.1 mg/dL (0-0.2); Bilirubin Total 0.3 mg/dL (0.3-1.2); Protein, Total 7.3 g/dL (6.0-8.3)
[2018-01-15 07:07] LABS: Alcohol Serum/Plasma < 10 mg/dl
[2018-01-15] MEDS ORDERED: ACETAMINOPHEN 500 MG TAB ONE (07:18)
[2018-01-15] MEDS ORDERED: POTASSIUM CL SA 10 MEQ TAB PO ONE (07:26)
[2018-01-15] MEDS ORDERED: NA CHLORIDE 0.9% 500 ML ONE (07:26)
[2018-01-15 09:35] LABS: Barbiturates NEGATIVE; Benzodiazepines NEGATIVE; Cocaine NEGATIVE; METHAMPHETAM NEGATIVE (NEGATIVE); Opiates NEGATIVE; Phencyclidine NEGATIVE; THC Cannibis POSITIVE
--- NOTE | 2018-01-15 09:35 | EDPHYS ---
Physician Documentation [facility] Name: Shanna Estrella Age: 22 yrs Sex: Female : 1995 Arrival Date: 01/15/2018 Time: 06:27 Bed 3 Private MD: ED Physician Fritz Reid HPI: 01/15 06:52 This 22 yrs old Female presents to ER via EMS with complaints of Probable cp Seizure. 06:52 The patient presents with a history of multiple seizures, an unknown number. cp 06:52 Character of seizure(s): Motor activity: generalized, shaking all over. Seizure onset: cp this morning. Context: the seizure(s) was witnessed, by no one, occurred at home. Seizure Hx: Last seizure: The patient's last seizure was approximately 11 year(s) ago, Seizure medications: none. Associated injury: The patient did not suffer any apparent associated injury. Current symptoms: Currently, the patient is not experiencing any symptoms, the patient feels back to baseline. The patient has been recently seen at the [facility] Emergency Department, for similar complaints labs were performed, last month. Patient reports she has not followed up with neurology for reported seizures as patient had similar episode and was was seen in ED early last month. Patient reports no history of seizures for past 11 years. 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 - Social history:: Smoking status: Patient uses tobacco products, smokes one-half pack cigarettes per day, Patient/guardian denies using alcohol, street drugs, IV drugs. - Ebola Screening: : Patient denies exposure to infectious person Patient denies travel to an Ebola-affected area in the 21 days before illness onset. ROS: 06:55 Constitutional: Negative for body aches, chills, fever, poor PO intake. cp 06:55 Eyes: Negative for injury, pain, redness, and discharge. cp 06:55 ENT: Negative for drainage from ear(s), ear pain, sore throat, difficulty swallowing, difficulty handling secretions. 06:55 Cardiovascular: Negative for chest pain, edema, palpitations. 06:55 Respiratory: Negative for cough, shortness of breath, wheezing. 06:55 Abdomen/GI: Negative for abdominal pain, nausea, vomiting, and diarrhea, constipation, black/tarry stool, rectal bleeding. 06:55 Back: Negative for radiated pain. 06:55 : Negative for urinary symptoms. 06:55 Neuro: Positive for history of seizures, Negative for altered mental status, headache, currently seizing. 06:55 All other systems are negative. Exam: 06:40 ECG was reviewed by the Attending Physician. cp 07:00 Constitutional: The patient appears in no acute distress, alert, awake, cp non-diaphoretic, non-toxic, well developed, well nourished. 07:00 Head/Face: Normocephalic, atraumatic. Eyes: Pupils equal round and reactive to light, cp extra-ocular motions intact. Lids and lashes normal. Conjunctiva and sclera are non-icteric and not injected. Cornea within normal limits. Periorbital areas with no swelling, redness, or edema. ENT: Nares patent. No nasal discharge, no septal abnormalities noted. Tympanic membranes are normal and external auditory canals are clear. Oropharynx with no redness, swelling, or masses, exudates, or evidence of obstruction, uvula midline. Mucous membranes moist. Neck: Trachea midline, no thyromegaly or masses palpated, and no cervical lymphadenopathy. Supple, full range of motion without nuchal rigidity, or vertebral point tenderness. No Meningismus. Chest/axilla: Normal chest wall appearance and motion. Nontender with no deformity. No lesions are appreciated. 07:00 Cardiovascular: Rate: normal, Rhythm: regular, Edema: is not appreciated, JVD: is not appreciated. 07:00 Respiratory: the patient does not display signs of respiratory distress, Respirations: normal, no use of accessory muscles, no retractions, no splinting, no tachypnea, labored breathing, is not present, Breath sounds: are clear throughout, no decreased breath sounds, no stridor, no wheezing. 07:00 Abdomen/GI: Inspection: abdomen appears normal, Bowel sounds: active, all quadrants, Palpation: abdomen is soft and non-tender, in all quadrants, rebound tenderness, is not appreciated, voluntary guarding, is not appreciated, involuntary guarding, is not appreciated. 07:00 Back: pain, is absent, ROM is normal. 07:00 Skin: cellulitis, is not appreciated, no rash present. 07:00 Neuro: Orientation: to person, place \T\ time. Mentation: lucid, able to follow commands, Cerebellar function: is grossly normal, Motor: moves all fours, strength is normal, Sensation: no obvious gross deficits. Vital Signs: 06:33 BP 107 / 75; Pulse 92; Resp 18; Temp 99.0(TE); Pulse Ox 96% on R/A; Weight 83.91 kg; aa1 Height 5 ft. 0 in. (152.40 cm); Pain 0/10; 07:30 BP 116 / 80; Pulse 80; Resp 18; Pulse Ox 96% ; sv 08:33 BP 108 / 76; Pulse 76; Resp 18; Pulse Ox 96% ; sv 09:40 BP 100 / 78; Pulse 78; Resp 18 S; Pulse Ox 97% on R/A; aa5 06:33 Body Mass Index 36.13 (83.91 kg, 152.40 cm) aa1 Kelli Coma Score: 06:33 Eye Response: spontaneous(4). Verbal Response: oriented(5). Motor Response: obeys aa1 commands(6). Total: 15. MDM: 06:47 Patient medically screened. cp 07:00 Differential diagnosis: cerebral vascular accident, drug overdose, cardiac arrhythmia, cp seizure, TIA, electrolyte abnormality. 09:30 Data reviewed: vital signs, nurses notes, lab test result(s), EKG, and as a result, I cp will discharge patient. 09:30 Counseling: I had a detailed discussion with the patient and/or guardian regarding: the cp historical points, exam findings, and any diagnostic results supporting the discharge/admit diagnosis, lab results, the need for outpatient follow up, a neurologist, to return to the emergency department if symptoms worsen or persist or if there are any questions or concerns that arise at home. ED course: VSS. Patient observed in ED with no seizure activity observed or reported. Will discharge to home for continued monitroing. 01/15 06:31 Order name: Acetaminophen; Complete Time: 07:15 cp 01/15 06:31 Order name: Basic Metabolic Panel; Complete Time: 07:15 cp 01/15 09:14 Interpretation: Normal except: K 3.5. cp 01/15 06:31 Order name: CBC with Diff; Complete Time: 07:15 cp 01/15 06:31 Order name: ETOH Level; Complete Time: 07:15 cp 01/15 06:31 Order name: Hepatic Function; Complete Time: 07:15 cp 01/15 06:31 Order name: PT-INR; Complete Time: 07:15 cp 06 06:31 Order name: Ptt, Activated; Complete Time: 07:15 cp 01/15 06:31 Order name: Salicylate; Complete Time: 09:14 cp 01/15 06:31 Order name: Urine Drug Screen cp 01/15 09:08 Order name: Urine Dipstick--Ancillary (enter results) bd 01/15 09:08 Order name: Urine --Ancillary (enter results) bd 01/15 06:31 Order name: Seizure Precautions; Complete Time: 06:37 cp 01/15 06:31 Order name: Urine Test (obtain specimen); Complete Time: 08:59 cp 01/15 06:31 Order name: EKG; Complete Time: 06:31 cp 01/15 06:31 Order name: EKG - Nurse/Tech; Complete Time: 06:37 cp 01 06:31 Order name: IV Saline Lock; Complete Time: 06:37 cp 01/15 06:31 Order name: Labs collected and sent; Complete Time: 06:37 cp 01/15 06:31 Order name: Urine Dipstick-Ancillary (obtain specimen); Complete Time: 08:59 cp EC:40 Rate is 94 beats/min. Rhythm is regular. CO interval is normal. QRS interval is normal. cp QT interval is normal. No ST changes noted. Interpreted by me. Reviewed by me. Administered Medications: 07:19 Drug: Tylenol 1000 mg Route: PO; sv 08:37 Follow up: Response: No adverse reaction sv 07:29 Drug: NS 0.9% 500 ml Route: IV; Rate: bolus; Site: right antecubital; sg 07:30 Not Given (hospital out of liquid Potassium, provider notified, order changed): sg Potassium Chloride 20 mEq PO once 07:30 Drug: Potassium Chloride 20 mEq Route: PO; sg 08:36 Follow up: Response: No adverse reaction sv Disposition: 01/15/18 09:34 Discharged to Home. Impression: Seizure. - Condition is Stable. - Discharge Instructions: Seizure, Adult. - Medication Reconciliation Form, Thank You Letter, Antibiotic Education, Prescription Opioid Use form. - Follow up: Fady Pierre MD; When: 1 - 2 days; Reason: Recheck today's complaints. - Problem is an ongoing problem. - Symptoms have improved. Addendum: 01/16/2018 22:55 Co-signature as Attending Physician, Fritz Reid MD I agree with the assessment and t w4 plan of care. Signatures: Dispatcher [employer] Elyse Avery RN Dilshad Hatch RN RN Mirtha Jeong RN RN aa1 Genesis Taylor RN RN aa5 Francisco Rodriguez PA PA Fritz Davey MD MD tw4 Corrections: (The following items were deleted from the chart) 01/15 08:59 08:43 Bills ordered. cp sv 09:51 09:34 01/15/2018 09:34 Discharged to Home. Impression: Seizure. Condition is Stable. aa5 Forms are Medication Reconciliation Form, Thank You Letter, Antibiotic Education, Prescription Opioid Use. Follow up: Fady Pierre; When: 1 - 2 days; Reason: Recheck today's complaints. Problem is an ongoing problem. Symptoms have improved. cp
--- NOTE | 2018-01-15 09:35 | ER ---
Nurse's Notes [facility] Name: Shanna Estrella Age: 22 yrs Sex: Female : 1995 Arrival Date: 01/15/2018 Time: 06:27 Bed 3 Private MD: Diagnosis: Seizure Presentation: 01/15 06:27 Presenting complaint: Patient states: she has a hx of seizures has not been on any aa1 medications nor had any seizure activity for the past 11 years but has now had 5 seizures in the past 24 hrs. EMS reports pt had episode of convulsions en rout to ED but pt was able to answer questions verbally during episode. Transition of care: patient was not received from another setting of care. Onset of symptoms was January 15, 2018. Risk Assessment: Do you want to hurt yourself or someone else? Patient reports no desire to harm self or others. Initial Sepsis Screen: Does the patient meet any 2 criteria? No. Patient's initial sepsis screen is negative. Does the patient have a suspected source of infection? No. Patient's initial sepsis screen is negative. Care prior to arrival: None. 06:27 Method Of Arrival: EMS: [facility] aa1 06:27 Acuity: ELI 3 aa1 Triage Assessment: 06:33 General: Appears in no apparent distress. comfortable, Behavior is calm, cooperative, aa1 appropriate for age. 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 - Social history:: Smoking status: Patient uses tobacco products, smokes one-half pack cigarettes per day, Patient/guardian denies using alcohol, street drugs, IV drugs. - Ebola Screening: : Patient denies exposure to infectious person Patient denies travel to an Ebola-affected area in the 21 days before illness onset. Screenin:34 Abuse screen: Denies threats or abuse. Denies injuries from another. Nutritional aa1 screening: No deficits noted. Tuberculosis screening: No symptoms or risk factors identified. Fall Risk None identified. Assessment: 06:34 General: Appears in no apparent distress. comfortable, Behavior is calm, cooperative, aa1 appropriate for age. Pain: Denies pain. Neuro: Level of Consciousness is awake, alert, obeys commands, Oriented to person, place, time, situation, Moves all extremities. Full function Speech is normal, Pupils are PERRLA. Neuro: Seizure activity reported prior to arrival. Respiratory: Airway is patent Respiratory effort is even, unlabored, Respiratory pattern is regular, symmetrical. GI: No signs and/or symptoms were reported involving the gastrointestinal system. : No signs and/or symptoms were reported regarding the genitourinary system. EENT: No signs and/or symptoms were reported regarding the EENT system. Derm: Skin is intact, is healthy with good turgor, Skin is pink, warm \T\ dry. Musculoskeletal: Circulation, motion, and sensation intact. Capillary refill < 3 seconds. 07:17 General: Appears in no apparent distress. comfortable, Behavior is calm, cooperative. sv Pain: Complains of pain in face Pain currently is 5 out of 10 on a pain scale. Quality of pain is described as throbbing, Is continuous. Neuro: Level of Consciousness is awake, alert, obeys commands, Oriented to person, place, time, situation, Speech is normal. Respiratory: Respiratory effort is even, unlabored, Respiratory pattern is regular, symmetrical. Derm: Skin is pink, warm \T\ dry. 08:00 Reassessment: Patient appears in no apparent distress at this time. Patient and/or sv family updated on plan of care and expected duration. Pain level reassessed. Patient is alert, oriented x 3, equal unlabored respirations, skin warm/dry/pink. Family at the bedside. Pillow placed under pt's right arm per pt request. 09:45 Reassessment: Patient is alert, oriented x 3, equal unlabored respirations, skin aa5 warm/dry/pink. Vital Signs: 06:33 BP 107 / 75; Pulse 92; Resp 18; Temp 99.0(TE); Pulse Ox 96% on R/A; Weight 83.91 kg; aa1 Height 5 ft. 0 in. (152.40 cm); Pain 0/10; 07:30 BP 116 / 80; Pulse 80; Resp 18; Pulse Ox 96% ; sv 08:33 BP 108 / 76; Pulse 76; Resp 18; Pulse Ox 96% ; sv 09:40 BP 100 / 78; Pulse 78; Resp 18 S; Pulse Ox 97% on R/A; aa5 06:33 Body Mass Index 36.13 (83.91 kg, 152.40 cm) aa1 [place] Coma Score: 06:33 Eye Response: spontaneous(4). Verbal Response: oriented(5). Motor Response: obeys aa1 commands(6). Total: 15. ED Course: 06:27 Patient arrived in ED. aa1 06:32 Triage completed. aa1 06:33 Arm band placed on right wrist. Patient placed in an exam room, on a stretcher. aa1 06:34 Patient has correct armband on for positive identification. Placed in gown. Bed in low aa1 position. Call light in reach. Side rails up X2. Pulse ox on. NIBP on. 06:34 EKG done, by ED staff, reviewed by Firtz Reid MD. aa1 06:37 Inserted saline lock: 22 gauge in right antecubital area, using aseptic technique. mg2 Blood collected. 06:47 Francisco Rodriguez PA is PHCP. cp 06:47 Fritz Reid MD is Attending Physician. cp 07:17 Seizure precautions initiated. sv 07:19 Elyse Watson, BANG is Primary Nurse. sv 09:33 Fady Pierre MD is Referral Physician. cp 09:45 No provider procedures requiring assistance completed. aa5 09:45 IV discontinued, intact, bleeding controlled, No redness/swelling at site. Pressure aa5 dressing applied. Administered Medications: 07:19 Drug: Tylenol 1000 mg Route: PO; sv 08:37 Follow up: Response: No adverse reaction sv 07:29 Drug: NS 0.9% 500 ml Route: IV; Rate: bolus; Site: right antecubital; sg 07:30 Not Given (hospital out of liquid Potassium, provider notified, order changed): sg Potassium Chloride 20 mEq PO once 07:30 Drug: Potassium Chloride 20 mEq Route: PO; sg 08:36 Follow up: Response: No adverse reaction sv Outcome: 09:34 Discharge ordered by . cp 09:45 Discharged to home ambulatory, with significant other. aa5 09:45 Condition: stable 09:45 Discharge instructions given to patient, Instructed on discharge instructions, follow up and referral plans. Demonstrated understanding of instructions, follow-up care. 09:51 Patient left the ED. aa5 Signatures: Elyse Watson, RN RN sv Dilshad Mccullough RN Mirtha Castrejon RN RN aa1 Genesis Taylor RN RN aa5 Francisco Rodriguez PA PA cp Gardose, Michele RN RN mg2
[2018-01-15 10:44] LABS: Urine Blood 2+ (NEG); Urine Glucose NEGATIVE (NEG); Urine Protein NEGATIVE (NEG)
== END 2018-01-15 09:51 | disposition home or self-care (01) ==
LOC: ER 06:23
DX: G40.802 Other epilepsy, not intractable, without status epilepticus (principal); F32.9 Major depressive disorder, single episode, unspecified; F17.210 Nicotine dependence, cigarettes, uncomplicated; Z88.0 Allergy status to penicillin; Z88.1 Allergy status to other antibiotic agents; Z88.8 Allergy status to other drugs, medicaments and biological substances; Z91.048 Other nonmedicinal substance allergy status
CPT/HCPCS: 36415; 80048; 80076; 80307; 80320; 80329; 81003; 81025; 85025; 85610; 85730; 93005; 99284

== ENCOUNTER 2018-02-09 17:58 | Emergency (ER) | payer SELFPAY ==
--- OUTSIDE RECORDS SUMMARY | 2018-02-09 18:01 | XMS REPORT | Continuity of Care Document ---
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, [facility], type II [facility] Hydrocephalus Resolved Problem 07/19/2016 [facility] Depression Resolved Problem 07/19/2016 [facility] PTSD (<span Resolved Problem 07/19/2016 ID="[id number] [facility],M ">Confirmed</spa H [place] n>) [facility] PTSD (<span Resolved Problem 07/19/2016 ID="[id number] [facility] ">Confirmed</spa H [place] n>) [facility] HEADACHE Active [facility] Medications Medication Details Route Status Patient Ordering Order Source Instructions Provider Date Ketorolac
60 mg, No Longer Route: IM, 2015 [facility] Drug form: INJ, ONCE, Dosing Weight 84.545, kg, Priority: STAT, Start date: 07/15/16 23:21:00 TAX SERVICES MANAGER, Stop date: 07/15/16 23:21:00 TAX SERVICES MANAGER Valium
5 mg, No Longer Route: IM, 2015 [facility] Drug form: INJ, ONCE, Dosing Weight 84.545, kg, Priority: STAT, Start date: 07/15/16 23:21:00 TAX SERVICES MANAGER, Stop date: 07/15/16 23:21:00 TAX SERVICES MANAGER Ativan
1 mg, No Longer [facility] 0.5 mL, Active 2015 Medical Route: IV, [place] Drug form: INJ, ONCE, Dosing Weight 84.545, kg, PRN Anxiety, Start date: 07/13/16 23:15:00 TAX SERVICES MANAGER
Notes : (Same as: Ativan) nystatin
1 appl, No Longer [place] topical 100,000 Route: TOP, Active 2015 Medical units/g cream TID, Drug Center form: CRM, Start date: 07/13/16 17:00:00 TAX SERVICES MANAGER, Duration: 30 day, Stop date: 08/12/16 13:00:00 TAX SERVICES MANAGER
Notes : (Same as:Mycostatin , Nilstat) For external use only. Nystatin [id number]
1 appl, Inactive [place] UNT/ML / Route: TOP, 2015 Medical Triamcinolone TID, Drug Center Acetonide 1 form: CRM, MG/ML Topical Start date: Cream 07/13/16 9:00:00 TAX SERVICES MANAGER, Duration: 30 day, Stop date: 08/11/16 17:00:00 TAX SERVICES MANAGER Sodium Chloride
250 mL, Inactive [place] 0.154 MEQ/ML 250 ml/hr, 2016 Medical Injectable Infuse Over: [place] Solution 1 hr, Route: IV, 250, Drug form: INJ, ONCE, Priority: STAT, Dosing Weight 84.545 kg, Start date: 07/12/16 16:18:00 TAX SERVICES MANAGER, Duration: 1 doses or times, Stop date: 07/12/16 16:18:00 TAX SERVICES MANAGER Promethazine
12.5 mg, No Longer [place] 0.5 mL, Active 2015 Medical Route: IVPB, [place] Drug form: INJ, Q4H, Dosing Weight 84.545, kg, PRN as needed for nausea/vomiti ng, Start date: 07/12/16 16:17:00 TAX SERVICES MANAGER, Duration: 30 day, Stop date: 08/11/16 16:16:00 TAX SERVICES MANAGER
Notes : Do not give IV push. (Same as: Phenergan) Docusate
100 mg, No Longer [place] 1 cap, Route: Active 2015 Medical PO, Drug Center form: CAP, Q12H, Dosing Weight 84.545, kg, Start date: 07/12/16 9:00:00 TAX SERVICES MANAGER, Duration: 30 day, Stop date: 08/10/16 21:00:00 TAX SERVICES MANAGER
Notes : (Same as: Colace) (Do Not Crush) sennosides, ALF
8.6 mg, No Longer [place] 1 tab, Route: Active 2015 Medical PO, Drug Center Form: TAB, Dosing Weight 84.545, kg, Q12H, Start date: 07/12/16 9:00:00 TAX SERVICES MANAGER, Duration: 30 day, Stop date: 08/10/16 21:00:00 TAX SERVICES MANAGER
Notes : (Same as: Senokot) Saline Flush
10 ml, No Longer [place] 0.9% Route: IVP, Active 2015 Medical Drug Form: Center INJ, Dosing Weight 84.545, kg, Q12H, Start date: 07/12/16 9:00:00 TAX SERVICES MANAGER, Duration: 30 day, Stop date: 08/10/16 21:00:00 TAX SERVICES MANAGER
Notes : (Same as: BD Posiflush) tramadol
50 mg=1 Active [place] hydrochloride tab, PO, Q4H, 2015 Medical 50 MG Oral PRN for pain, Center Tablet [Ultram] X 10 day, # 60 tab, 0 Refill(s) tramadol
50 mg, 1 No Longer [place] hydrochloride tab, Route: Active 2015 Medical 50 MG Oral PO, Drug Center Tablet [Ultram] form: TAB, Q4H, Dosing Weight 84.545, kg, PRN Pain Score 1-3, Start date: 07/12/16 7:14:00 TAX SERVICES MANAGER, Duration: 30 day, Stop date: 08/11/16 7:13:00 TAX SERVICES MANAGER
Notes : Not to exceed 400mg/day. (Same As: Ultram) tramadol
50 mg=1 Inactive [place] hydrochloride tab, PO, Q4H, 2016 Medical 50 MG Oral PRN for pain, Center Tablet [Ultram] X 10 day, # 60 tab, 0 Refill(s) senna 8.6 mg
8.6 mg=1 Active [place] oral tablet tab, PO, 2016 Medical Q12H, X 14 Center day, # 28 tab, 0 Refill(s) Docusate Sodium
100 mg=1 Active [place] 100 MG Oral cap, PO, 2016 Medical Capsule Q12H, # 28 [place] cap, 0 Refill(s) Regular
5 unit, No Longer [place] Insulin, Human 0.05 mL, Active 2015 Medical 100 UNT/ML Route: SUB-Q, Center Injectable Drug form: Solution SOLN, PRN, Dosing Weight 84.545, kg, PRN Abnormal Lab Result, Start date: 07/11/16 22:18:00 TAX SERVICES MANAGER, Duration: 30 day, Stop date: 08/10/16 22:17:00 TAX SERVICES MANAGER
No audrey: (Same as: Humulin R) Roll in palms of hands gently; Do not shake vigorously. "single patient use only" (Restricted to patients requiring a dose > 60 units) WASTE: F/P - Black; E - Municipal Trash Bin Stable for 28 days at room temperature Expires in days from _Date Dextrose 50%
25 gm, No Longer [place] Syringe 50 mL, Route: Active 2015 [facility] IVP, Drug Center Form: INJ, Dosing Weight 84.545, kg, PRN, PRN Abnormal Lab Result, Start date: 07/11/16 22:18:00 TAX SERVICES MANAGER, Duration: 30 day, Stop date: 08/10/16 22:17:00 TAX SERVICES MANAGER Bisacodyl
10 mg, 1 No Longer [place] supp, Route: Active 2015 [facility] MS, Drug Center form: SUPP, Daily, Dosing Weight 84.545, kg, PRN Constipation, Start date: 07/11/16 22:18:00 TAX SERVICES MANAGER, Duration: 30 day, Stop date: 08/10/16 22:17:00 TAX SERVICES MANAGER
Notes : (Same As: Dulcolax, Bisco-Lax) Saline Flush
10 ml, No Longer [facility] 0.9% Route: IVP, Active 2015 Medical Drug Form: Center INJ, Dosing Weight 84.545, kg, PRN, PRN Line Flush, Start date: 07/11/16 22:18:00 TAX SERVICES MANAGER, Duration: 30 day, Stop date: 08/10/16 22:17:00 TAX SERVICES MANAGER
Notes : (Same as: BD Posiflush) Ondansetron
4 mg, 2 No Longer [place] mL, Route: Active 2015 Medical IVP, Drug Center form: INJ, Q8H, Dosing Weight 84.545, kg, PRN Nausea & Vomiting, Start date: 07/11/16 22:18:00 TAX SERVICES MANAGER, Duration: 30 day, Stop date: 08/10/16 22:17:00 TAX SERVICES MANAGER
No audrey: (Same as: Zofran) MEDICATION WASTE Product Size: 4 mg Product Wasted: _0__ mg Acetaminophen
1 tab, No Longer [place] 325 MG / Route: PO, Active 2015 Medical Hydrocodone Drug Form: Center Bitartrate 10 TAB, Dosing MG Oral Tablet Weight 84.545, kg, Q4H, PRN Pain Score 4-6, Start date: 07/11/16 22:18:00 TAX SERVICES MANAGER, Duration: 30 day, Stop date: 08/10/16 22:17:00 TAX SERVICES MANAGER
Notes : Do not exceed 4gm/day of acetaminophen . (Same as: [place] 325/10) Acetaminophen
1 tab, No Longer [place] 325 MG / Route: PO, Active 2015 Medical Hydrocodone Drug Form: Center Bitartrate 5 MG TAB, Dosing Oral Tablet Weight 84.545, kg, Q4H, PRN Pain Score 1-3, Start date: 07/11/16 22:18:00 TAX SERVICES MANAGER, Duration: 30 day, Stop date: 08/10/16 22:17:00 TAX SERVICES MANAGER
Notes : (Same as: [place] 325/5) Do not exceed 4gm/day of acetaminophen . Sodium Chloride
1,000 No Longer [place] 0.154 MEQ/ML mL, Rate: 75 Active 2015 Medical Injectable ml/hr, Infuse Center Solution over: 13.3 hr, Route: IV, Dosing Weight 84.545 kg, Total Volume: 1,000, Start date: 07/11/16 22:18:00 TAX SERVICES MANAGER, Duration: 30 day, Stop date: 08/10/16 22:17:00 TAX SERVICES MANAGER Reglan
10 mg, 2 Inactive [place] mL, Route: 2016 Medical IVP, Drug Center form: INJ, ONCE, Dosing Weight 84.545, kg, Priority: STAT, Start date: 07/11/16 20:59:00 TAX SERVICES MANAGER, Stop date: 07/11/16 20:59:00 TAX SERVICES MANAGER
Notes : (Same as: Reglan) Sodium Chloride
1,000 Inactive [place] 0.154 MEQ/ML mL, 1,000 2015 Medical Injectable ml/hr, Infuse Center Solution Over: 1 hr, Route: IV, 1,000, Drug form: INJ, ONCE, Priority: STAT, Dosing Weight 84.545 kg, Start date: 07/11/16 20:59:00 TAX SERVICES MANAGER, Duration: 1 doses or times, Stop date: 07/11/16 20:59:00 TAX SERVICES MANAGER Acetaminophen
1,000 Inactive [place] mg, 2 tab, 2015 Medical Route: PO, Center Drug form: TAB, ONCE, Dosing Weight 84.545, kg, Priority: STAT, Start date: 07/11/16 20:59:00 TAX SERVICES MANAGER, Stop date: 07/11/16 20:59:00 TAX SERVICES MANAGER
Notes : Max acetaminophen 4000 mg/day (4 gm/day). (Same as: Tylenol Extra Strength) Allergies, Adverse Reactions, Alerts Substance Category Reaction Severity Reaction Status Date Comments Source type Reported amoxicillin Assertion Drug Active MH allergy [facility] LaMICtal Assertion Drug Active MH allergy [facility] Medical Tape Assertion Drug Active MH allergy [place] penicillins Assertion Drug Active MH allergy [facility] Immunizations Immunization Date Given Site Status Last Updated Comments Source Results Order Name Results Value Reference Date Interpretation Comments Source Range Brain Brain shunt Clinical Indication:21 years Female with Pain and swelling 07/15 - shunt series DX /2015 - [place] series DX Comparison: Shunt study 07/12/2016 Read by: Scot Saenz MD Dictated Date/time: 07/15/16 23:38 FINDINGS: Electronically Signed by: Scot Saenz MD 07/15/16 23:41 FINAL REPORT Radiographs of the right BOOM CAT OPERATOR shunt obtained from the skull to the abdomen. Unchanged appearance of the BOOM CAT OPERATOR shunt, which goes from the right lateral ventricle along the right neck, traverses the right upper chest to the left lower chest, and terminates in the left upper quadrant. No discontinuity of the BOOM CAT OPERATOR shunt. 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 IMPRESSION: Unchanged appearance of right BOOM CAT OPERATOR shunt. No discontinuity of the shunt catheter or other significant radiographic abnormality. Brain wo Brain wo Exam: MRI brain without and with contrast. 07/13 [place] contrast contrast MRI /2015 - Medical MRI Exam: CSF flow study. Center Read by: Nilda Beach MD Dictated Date/time: 07/14/16 07:12 INDICATION: Headache post LP. Electronically Signed by: Nilda Beach MD 07/14/16 08:38 FINAL REPORT COMPARISON: CT July 13, 2016. TECHNIQUE: Multiecho multiplanar MR sequences of the brain are obtained pre and post administration of 18 cc MultiHance. CSF flow study was performed. Discussion: No restricted diffusion. 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 Postoperative changes of suboccipital decompression are evident. No intracranial hemorrhage. Areas of stenogyria in the bilateral parietal and occipital lobes are evident. No abn ormal enhancement of the brain parenchyma or leptomeninges is detected. Mild right parietal convexity dural thickening and enhancement are evident. Right frontoparietal shunt catheter is redemonstrated with stable ventricular size. FLAIR hyperintense signal along the periventricular white matter consistent with gliotic changes. CSF flow study shows flow anteriorly and posteriorly at the level of the craniocervical junction with synchronous flow of CSF. IMPRESSION: 1. 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 No evidence of acutely raised intracranial pressure is identified, however comparison with available outside studies to assess any change from baseline would be helpful. 2. No abnormal parenchymal or leptomeningeal enhancement is detected. Nonspecific right parietal convexity dural thickening and enhancement. 3. CSF flow anteriorly and posteriorly at the level of the craniocervical junction is evident. Postoperative changes of suboccipital decompression are evident. Brain w/wo Brain w/wo Exam: MRI brain without and with contrast. 07/13 [place] contrast contrast MRI /2016 - Medical MRI Exam: CSF flow study. Center Read by: Nilda Beach MD Dictated Date/time: 07/14/16 07:12 INDICATION: Headache post LP. Electronically Signed by: Nilda Beach MD 07/14/16 08:38 FINAL REPORT COMPARISON: CT July 13, 2016. TECHNIQUE: Multiecho multiplanar MR sequences of the brain are obtained pre and post administration of 18 cc MultiHance. CSF flow study was performed. Discussion: No restricted diffusion. 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 Postoperative changes of suboccipital decompression are evident. No intracranial hemorrhage. Areas of stenogyria in the bilateral parietal and occipital lobes are evident. No abn ormal enhancement of the brain parenchyma or leptomeninges is detected. Mild right parietal convexity dural thickening and enhancement are evident. Right frontoparietal shunt catheter is redemonstrated with stable ventricular size. FLAIR hyperintense signal along the periventricular white matter consistent with gliotic changes. CSF flow study shows flow anteriorly and posteriorly at the level of the craniocervical junction with synchronous flow of CSF. IMPRESSION: 1. 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 No evidence of acutely raised intracranial pressure is identified, however comparison with available outside studies to assess any change from baseline would be helpful. 2. No abnormal parenchymal or leptomeningeal enhancement is detected. Nonspecific right parietal convexity dural thickening and enhancement. 3. CSF flow anteriorly and posteriorly at the level of the craniocervical junction is evident. Postoperative changes of suboccipital decompression are evident. BODY Protein CSF 34 mg/dL 15 - 45 07/13 [email or web address] [facility] BODY Color CSF Colorless Colorless 07/13 [facility] (07/13/16 7:35 AM) Center BODY Clarity CSF Clear Clear 07/13 [facility] (07/13/16 7:35 AM) Center BODY Tube Num CSF xxxxxxx 07/13 [facility] (07/13/16 7:35 AM) Center BODY RBC CSF 0 /mm3 0 - 03 07/13 [facility] BODY Supernat CSF Colorless Colorless 07/13 [facility] (07/13/16 7:35 AM) Center BODY WBC CSF 1 /mm3 0 - 53 07/13 [facility] BODY Glucose CSF 56 mg/dL 45 - 80 07/13 [email or web address] [facility] IMMUNOLOGY PE Interp CSF 07/13 [facility] [place] [facility] did not reveal evidence of an oligoclona l process in the SWEEPING COMPOUND BLENDER. The CSF IgG index is within the reference range indicating that there is no elevation in intracereb ral IgG synthesis. There is also no evidence of increased permeabili ty of the blood brain barrier based on the CSF/serum albumin ratio.The electronic medical record has been reviewed for relevant history.I have personally reviewed the test results and concur with the resident's interpreta tion.CPT: 37699-MW IMMUNOLOGY Description The gel 07/13 [facility] CSF demonstrat [facility] appropriat e resolution of the main protein bands. The gamma region shows continuous distributi on of proteins both in the CSF and in the serum. No oligoclona l bands are detected. IMMUNOLOGY IgG (CPE) 1010 mg/dL 694 - 1618 07/13 [facility] IMMUNOLOGY Alb (CPE) 4100.0 3400.0 - 07/13 [facility] mg/dL 5000.0 [facility] IMMUNOLOGY IgG Lvl CSF 1.7 mg/dL 2.0 - 4.0 07/13 [facility] IMMUNOLOGY Alb CSF 14.7 mg/dL 14.0 - 07/13 [facility] (CPE) 25.0 [facility] IMMUNOLOGY IgG Index 0.5 mg/dL 0.3 - 0.7 07/13 [facility] CHEM PANEL eGFR 128 07/13 Result Comment: The eGFR is calculated using the CKD-EPI formula. In most young, healthy individuals the eGFR will be >90 mL/ min/1.73m2. The eGFR declines with age. An eGFR of 60-89 may be normal in [facility] mL/min/1.7 /2015 some populations, particularly the elderly, for whom the CKD-EPI formula has not been extensively validated. Use of the eGFR is not recommended in the following populations: [address] Individuals with unstable creatinine concentrations, including patients and those with serious co-morbid conditions. Patients with extremes in muscle mass or diet. The data above are obtained from the National Kidney Disease Education Program (NKDEP) which additionally recommends that when the eGFR is used in patients with extremes of body mass index for purposes of drug dosing, the eGFR should be multiplied by the estimated BMI. CHEM PANEL Calcium Lvl 8.8 mg/dL 8.5 - 10.5 07/13 [facility] CHEM PANEL CO2 23 meq/L 24 - 32 07/13 [facility] CHEM PANEL Chloride Lvl 108 meq/L 95 - 109 07/13 [facility] CHEM PANEL Creatinine 0.61 mg/dL 0.50 - 07/13 [facility] Lvl 1.40 [facility] CHEM PANEL Sodium Lvl 142 meq/L 135 - 145 07/13 [facility] CHEM PANEL BUN 7 mg/dL 7 - 22 07/13 [facility] CHEM PANEL Potassium 3.9 meq/L 3.5 - 5.1 07/13 [facility] Lvl [facility] CHEM PANEL Glucose Lvl 88 mg/dL 70 - 99 07/13 [facility] CHEM PANEL AGAP 14.9 meq/L 10.0 - 07/13 [facility] 20.0 [facility] HEMATOLOGY Lymphocytes 37.9 % 20.0 - 07/13 40.0 [facility] HEMATOLOGY Segs 52.1 % 45.0 - 07/13 [facility] 75.0 [facility] HEMATOLOGY Monocytes 7.3 % 2.0 - 12.0 07/13 [facility] HEMATOLOGY Basophils 0.8 % 0.0 - 1.0 07/13 [facility] HEMATOLOGY Eosinophils 1.9 % 0.0 - 4.0 07/13 [facility] HEMATOLOGY Segs-Bands # 3.8 K/CMM 1.5 - 8.1 07/13 [facility] HEMATOLOGY Eosinophils 0.1 K/CMM 0.0 - 0.5 07/13 [facility] HEMATOLOGY Monocytes # 0.5 K/CMM 0.0 - 0.8 07/13 [facility] HEMATOLOGY Lymphocytes 2.7 K/CMM 1.0 - 5.5 07/13 [facility] HEMATOLOGY Basophils # 0.1 K/CMM 0.0 - 0.2 07/13 [facility] HEMATOLOGY RBC 4.53 M/CMM 4.20 - 07/13 [facility] 5.40 [facility] HEMATOLOGY WBC 7.2 K/CMM 3.7 - 10.4 07/13 [facility] HEMATOLOGY Hct 38.5 % 36.0 - 07/13 [facility] 48.0 /2016 [facility] HEMATOLOGY Hgb 13.0 g/dL 12.0 - 07/13 [facility] 16.0 /2015 [facility] HEMATOLOGY MCHC 33.9 g/dL 32.0 - 07/13 [facility] 36.0 /2015 [facility] HEMATOLOGY MCH 28.8 pg 27.0 - 07/13 [facility] 31.0 /2015 [facility] HEMATOLOGY RDW 14.0 % 11.5 - 07/13 [facility] 14.5 [facility] HEMATOLOGY MPV 9.2 fL 7.4 - 10.4 07/13 /2015 [facility] HEMATOLOGY Platelet 283 K/CMM 133 - 450 07/13 /2015 [facility] HEMATOLOGY MCV 84.9 fL 80.0 - 07/13 [facility] 98.0 /2015 [facility] HEMATOLOGY INR 0.96 0.85 - 07/13 [facility] 1.17 /2015 [facility] HEMATOLOGY PTT 31.9 s 22.9 - 07/13 [facility] 35.8 /2015 [facility] HEMATOLOGY PT 13.0 s 12.0 - 07/13 [facility] 14.7 [facility] Brain wo Brain wo EXAM: CT HEAD WITHOUT CONTRAST 07/13 [facility] contrast contrast CT /2015 - [facility] DATE: 07/13/2016 Read by: Marcos Jo MD Dictated Date/time: 07/13/16 06:58 Electronically Signed by: Marcos Jo MD 07/13/16 07:01 FINAL REPORT INDICATION: 21 years old Female patient with history of BOOM CAT OPERATOR shunt placement , now complaining of headache. TECHNIQUE: Multiple axial images were obtained through the head from vertex to the skull base. Axial bone algorithm reconstruction images are provided. COMPARISON: Prior CT Scan of the head dated 07/12/2016 147 AM TAX SERVICES MANAGER DISCUSSION: Again identified is a right parietal approach BOOM CAT OPERATOR shunt catheter with distal tip lies within the right lateral ventricle. Since prior study there has been no interval significant change in ventricular system. Ventricles are adequately decompressed. 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 There is fat density lesion/lipoma measuring within the quadrigeminal cistern. No definite new parenchymal abnormality or new hemorrhage is identified. There is no significant midline shift. Overall ventricles are stable in size and configuration. No interval significant adverse changes in visualized paranasal sinuses, orbits, mastoid cavities and calvarium. IMPRESSION: 1. Overall no significant interval adverse change. 2. Stable right parietal approach BOOM CAT OPERATOR shunt catheter with adequately decompressed ventricular system. 3. 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 CARDIAC Troponin-T null 0.000 - 07/12 [facility] ENZYMES 0.100 /2015 [facility] CARDIAC Total CK 33 unit/L 12 - 191 07/12 [facility] ENZYMES /2015 [facility] MYOGLOBIN Myoglobin 35 ng/mL 25 - 72 07/12 /2015 [facility] Chest Chest 1view EXAM: XR CHEST 1 VIEW 07/12 - [facility] 1view DX - [facility] Center DATE: 07/12/2016 4:10 PM TAX SERVICES MANAGER Read by: Albert Vail MD Dictated Date/time: 07/12/16 16:40 Electronically Signed by: Albert Vail 07/12/16 16:42 FINAL REPORT INDICATION: Chest pain COMPARISON: Yesterday TECHNIQUE: AP chest FINDINGS: Abandoned and calcified discontinuous BOOM CAT OPERATOR shunt tubing is redemonstrated over the right lower neck and anterior chest, coursing over the upper abdomen. Additional BOOM CAT OPERATOR shunt tubing is seen over t he right neck, extending over the midline chest and left upper quadrant; distal tubing is not well seen. Stable cardiomediastinal silhouette. No new pulmonary or pleural based abnormalities. IMPRESSION: No significant change. Brain Brain shunt EXAM: XR SHUNT SERIES 07/12 - [facility] shunt series - Medical series DX This report was dictated by a Luncheonette Operator/Fellow. I have personally reviewed the images as Center well as the Resident's interpretation and agree with the findings. DATE: 07/12/2016 7:03 AM TAX SERVICES MANAGER Read by: Siva Lanza MD Resident: Siva Lanza MD Dictated Date/time: 07/12/16 13:16 Electronically Signed by: Shon Duarte MD 07/12/16 14:30 FINAL REPORT INDICATION: Headache(s) ADDITIONAL INFORMATION: None. COMPARISON: Brain CT from the same day TECHNIQUE: 6 images of the shunt catheter were obtained. FINDINGS: A right-sided programmable shunt catheter is present with the tip terminating just to the right of midline. The shunt courses over the right neck and over the midline anterior thorax without d efinitive evidence of discontinuity, kinking, or fracture. The catheter is looped within the upper left abdomen with the tip in the right upper quadrant. There is an orphaned shunt catheter also along t he right chest and left abdomen. Incidental finding of a limbus vertebrae at the L3 level. IMPRESSION: 1. Right programmable BOOM CAT OPERATOR shunt with unremarkable appearance. 2. 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 Skull 1 Skull 1 view EXAM: XR SKULL 1 VIEW 07/12 - [facility] view DX - Medical This report was dictated by a Luncheonette Operator/Fellow. I have personally reviewed the images as Center well as the Resident's interpretation and agree with the findings. DATE: 07/12/2016 7:03 AM TAX SERVICES MANAGER Read by: Siva Lanza MD Resident: Siva Lanza MD Dictated Date/time: 07/12/16 13:25 Electronically Signed by: Shon Duarte MD 07/12/16 14:31 FINAL REPORT INDICATION: Headache(s) COMPARISON: None TECHNIQUE: AP radiographs of the skull with 2 images DISCUSSION: A delta valve shunt catheter is present with the tip of the delta aligned between the 2 radiopaque markers. The visualized portions of the catheter appear intact. IMPRESSION: Delta valve in place DRUG U Phencyc Negative Negative 07/12 [place] [facility] *NA* Center (07/12/16 12:39 AM) DRUG U Opiate Scr Negative Negative 07/12 [place] [facility] *NA* Center (07/12/16 12:39 AM) DRUG U Propoxyph Negative Negative 07/12 [place] [facility] *NA* [place] (07/12/16 12:39 AM) DRUG U Methadone Negative Negative 07/12 [place] SCREEN Scr [facility] *NA* [place] (07/12/16 12:39 AM) DRUG UDS Note See Note 07/12 [place] [facility] *NA* [place] (07/12/16 12:39 AM) DRUG U Benzodia Negative Negative 07/12 [place] [facility] *NA* [place] (07/12/16 12:39 AM) DRUG U Amph Scr Negative Negative 07/12 [place] [facility] *NA* Center (07/12/16 12:39 AM) DRUG U Cannab Scr Negative Negative 07/12 [place] SCREEN /2015 Medical *NA* Center (07/12/16 12:39 AM) DRUG U Cocaine Negative Negative 07/12 [place] SCREEN Scr [facility] *NA* Center (07/12/16 12:39 AM) DRUG U Tori Scr Negative Negative 07/12 [place] SCREEN /2015 [facility] *NA* Center (07/12/16 12:39 AM) HEMATOLOGY Platelet 306 K/CMM 133 - 450 07/12 /2015 [facility] HEMATOLOGY RDW 13.5 % 11.5 - 07/12 [place] 14.5 [facility] HEMATOLOGY MPV 9.3 fL 7.4 - 10.4 07/12 [facility] HEMATOLOGY RBC 4.46 M/CMM 4.20 - 07/12 [place] 5.40 /2015 [facility] HEMATOLOGY Hgb 12.6 g/dL 12.0 - 07/12 [place] 16.0 [facility] HEMATOLOGY Hct 37.4 % 36.0 - 07/12 [place] 48.0 [facility] HEMATOLOGY MCV 83.9 fL 80.0 - 07/12 [place] 98.0 /2015 [facility] HEMATOLOGY WBC 9.4 K/CMM 3.7 - 10.4 07/12 [facility] HEMATOLOGY MCH 28.3 pg 27.0 - 07/12 [place] 31.0 /2015 [facility] HEMATOLOGY MCHC 33.8 g/dL 32.0 - 07/12 [place] 36.0 [facility] HEMATOLOGY PTT 33.7 s 22.9 - 07/12 [place] 35.8 [facility] HEMATOLOGY INR 1.02 0.85 - 07/12 [place] 1.17 [facility] HEMATOLOGY PT 13.6 s 12.0 - 07/12 [place] 14.7 /2015 [facility] HEMATOLOGY Segs-Bands # 5.5 K/CMM 1.5 - 8.1 07/12 /2015 [facility] HEMATOLOGY Monocytes # 0.6 K/CMM 0.0 - 0.8 07/12 /2015 [facility] HEMATOLOGY Lymphocytes 3.0 K/CMM 1.0 - 5.5 07/12 [place] # /2015 [facility] HEMATOLOGY Basophils # 0.1 K/CMM 0.0 - 0.2 07/12 [facility] HEMATOLOGY Eosinophils 0.1 K/CMM 0.0 - 0.5 07/12 [facility] # [facility] HEMATOLOGY Basophils 0.9 % 0.0 - 1.0 07/12 [facility] HEMATOLOGY Segs 58.7 % 45.0 - 07/12 [facility] 75.0 [facility] HEMATOLOGY Lymphocytes 32.5 % 20.0 - 07/12 [facility] 40.0 [facility] HEMATOLOGY Monocytes 6.5 % 2.0 - 12.0 07/12 [facility] HEMATOLOGY Eosinophils 1.4 % 0.0 - 4.0 07/12 [facility] URINE AND UA WBC 1 /HPF 0 - 5 07/12 [facility] URINE AND Micro? Not Indicated 07/12 [facility] *NA* [place] (07/12/16 12:39 AM) URINE AND UA <=1.0 0.1 - 1.0 07/12 [facility] Urobilinogen mg/dL [facility] URINE AND UA Protein Negative Negative 07/12 [facility] mg/dL mg/dL [facility] URINE AND UA Glucose Negative Negative 07/12 [facility] mg/dL mg/dL [facility] URINE AND UA Turbidity Clear Clear 07/12 [facility] (07/12/16 12:39 AM) [place] URINE AND UA Spec Grav 1.011 <=1.030 07/12 [facility] URINE AND UA pH 6.5 5.0 - 8.0 07/12 [facility]2015 [facility] URINE AND UA Color Yellow Yellow 07/12 [facility] *NA* [place] (07/12/16 12:39 AM) URINE AND UA Sq Epi Moderate Few /LPF 07/12 [facility] STOOL /LPF /2015 [facility] URINE AND UA Leuk Est Negative Negative 07/12 [facility] (07/12/16 12:39 AM) [place] URINE AND UA Ketones Negative Negative 07/12 [facility] mg/dL mg/dL [facility] URINE AND UA Bili Negative Negative 07/12 [facility] *NA* [place] (07/12/16 12:39 AM) URINE AND UA Blood Negative Negative 07/12 [facility] (07/12/16 12:39 AM) [place] URINE AND UA Nitrite Negative Negative 07/12 [place] STOOL Medical (07/12/16 12:39 AM) [place] URINE CHEM U Preg Negative Negative 07/12 [facility] (07/12/16 12:39 AM) [place] BLOOD BANK Antibody Negative 07/12 [facility] RESULTS [facility] (07/11/16 11:50 PM) [place] BLOOD BANK ABO/Rh A POS 07/12 [facility] RESULTS [facility] CHEM PANEL Glucose Lvl 93 mg/dL 70 - 99 07/12 [facility] CHEM PANEL AGAP 15.5 meq/L 10.0 - 07/12 [facility] 20.0 [facility] CHEM PANEL eGFR 113 07/12 Result Comment: The eGFR is calculated using the CKD-EPI formula. In most young, healthy individuals the eGFR will be >90 mL/ min/1.73m2. The eGFR declines with age. An eGFR of 60-89 may be normal in [facility] mL/min/1.7 some populations, particularly the elderly, for whom the CKD-EPI formula has not been extensively validated. Use of the eGFR is not recommended in the following populations: [address] Individuals with unstable creatinine concentrations, including patients and those with serious co-morbid conditions. Patients with extremes in muscle mass or diet. The data above are obtained from the National Kidney Disease Education Program (NKDEP) which additionally recommends that when the eGFR is used in patients with extremes of body mass index for purposes of drug dosing, the eGFR should be multiplied by the estimated BMI. CHEM PANEL Sodium Lvl 142 meq/L 135 - 145 07/12 [facility] CHEM PANEL Creatinine 0.75 mg/dL 0.50 - 07/12 [facility] Lvl 1.40 [facility] CHEM PANEL BUN 6 mg/dL 7 - 22 07/12 [facility] CHEM PANEL Calcium Lvl 8.8 mg/dL 8.5 - 10.5 07/12 [facility] CHEM PANEL CO2 26 meq/L 24 - 32 07/12 [facility] CHEM PANEL Potassium 3.5 meq/L 3.5 - 5.1 07/12 [facility] Lvl /2015 [facility] CHEM PANEL Chloride Lvl 104 meq/L 95 - 109 07/12 [facility] Brain wo Brain wo EXAM: CT HEAD WITHOUT CONTRAST 07/12 [facility] contrast contrast CT /2016 - Medical CT Center DATE: 07/12/2016 147 AM TAX SERVICES MANAGER Read by: Marcos Jo MD Dictated Date/time: 07/12/16 10:11 Electronically Signed by: Marcos Jo MD 07/12/16 10:22 FINAL REPORT INDICATION: 21 years old Female patient with history of BOOM CAT OPERATOR shunt placement , now complaining of headache. TECHNIQUE: Multiple axial images were obtained through the head from vertex to the skull base. Axial bone algorithm reconstruction images are provided. COMPARISON: Prior outside hospital CT Scan of the head dated 07/11/2016 DISCUSSION: Again identified is a right parietal approach BOOM CAT OPERATOR shunt catheter with distal tip lies within the right lateral ventricle. Since prior study there has been no interval significant change in ventricular system. Ventricles are adequately decompressed. 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 There is fat density lesion/lipoma measuring up to 20 x 30 x 27 mm (AP x TV x CC) within the quadrigeminal cistern. No definite new parenchymal abnormality or new hemorrhage is identified. There is no significant midline shift. Overall ventricles are stable in size and configuration. No interval significant adverse changes in visualized paranasal sinuses, orbits, mastoid cavities and calvarium. IMPRESSION: 1. Overall no significant interval adverse change. 2. Stable right parietal approach BOOM CAT OPERATOR shunt catheter with adequately decompressed ventricular system. 3. 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 Chest Chest 1view EXAM: XR CHEST 1 VIEW 07/11 [facility] 1view DX - [facility] This report was dictated by a Luncheonette Operator/Fellow. I have personally reviewed the images as Center well as the Resident's interpretation and agree with the findings. DATE: 07/11/2016 2230 hours Read by: Macy Campos MD Resident: Macy Campos MD Dictated Date/time: 07/11/16 22:49 Electronically Signed by: Aron Pacheco 07/12/16 08:18 FINAL REPORT INDICATION: Mass COMPARISON: Chest radiograph 07/11/2016 TECHNIQUE: AP chest FINDINGS: Lines and tubes: Abandoned and calcified discontinuous BOOM CAT OPERATOR shunt tubing is redemonstrated over the right lower neck and anterior chest, coursing over the upper abdomen. Additional BOOM CAT OPERATOR shunt tubing is seen over the right neck, extending over the midline chest and left upper quadrant; distal tubing is not well seen. Lungs and pleura: No focal consolidation, pleural effusion, or pneumothorax is identified. Heart and mediastinum: The heart size is normal for technique. The mediastinal contours are normal. Bones: No acute bony abnormality is identified. IMPRESSION: 1. No acute cardiopulmonary abnormality. 2. Partially visualized BOOM CAT OPERATOR shunt tubing as discussed above. Vital Signs Vital Sign Value Date Comments Source Respitory Rate 16 07/16/2016 [facility] Systolic (mm Hg) 134 07/16/2016 [facility] Diastolic (mm Hg) 63 07/16/2016 [facility] Temperature Oral (F) 98.2 F 07/16/2016 [facility] Temperature Oral (F) 98.6 F 07/16/2016 [facility] Respitory Rate 14 07/16/2016 [facility] Diastolic (mm Hg) 81 07/16/2016 [facility] Systolic (mm Hg) 131 07/16/2016 [facility] Weight 84.545 07/16/2016 [facility] Respitory Rate 20 07/16/2016 [facility] Heart Rate 110 07/16/2016 [facility] Temperature Oral (F) 98.8 F 07/16/2016 [facility] BMI Calculated 35.22 07/16/2016 [facility] Height 154.94 cm 07/16/2016 [facility] Systolic (mm Hg) 126 07/16/2016 [facility] Diastolic (mm Hg) 87 07/16/2016 [facility] Respitory Rate 12 07/14/2016 [facility] Temperature Oral (F) 97.9 F 07/14/2016 [facility] Systolic (mm Hg) 111 07/14/2016 [facility] Diastolic (mm Hg) 72 07/14/2016 [facility] Respitory Rate 16 07/14/2016 [facility] Systolic (mm Hg) 117 07/14/2016 [facility] Diastolic (mm Hg) 79 07/14/2016 [facility] Respitory Rate 13 07/14/2016 [facility] Systolic (mm Hg) 110 07/14/2016 [facility] Diastolic (mm Hg) 61 07/14/2016 [facility] Heart Rate 84 07/14/2016 [facility] Heart Rate 75 07/14/2016 [facility] Heart Rate 81 07/14/2016 [facility] Temperature Oral (F) 98.0 F 07/13/2016 [facility] Temperature Oral (F) 98.1 F 07/13/2016 [facility] Weight 84.545 07/12/2016 [facility] Weight 84.545 07/12/2016 [facility] Height 152.4 cm 07/12/2016 [facility] BMI Calculated 36.4 07/12/2016 [facility] Encounters Location Location Encounter Encounter Reason Attending ADM DC Status Source Details Type Number For Provider Date Date Visit [facility] [id number] [place] 07/12 07/14 [facility] [place] Brian[place] /2015 [facility] Emergency [id number] [place] 07/16 07/16 [facility] [place] /2015 [facility] Procedures Procedure Code Date Perfomer Comments Source Creation of BOOM CAT OPERATOR [id number] [facility] shunt Creation of BOOM CAT OPERATOR [id number] [facility]
--- OUTSIDE RECORDS SUMMARY | 2018-02-09 18:02 | XMS REPORT | Summary of Care ---
:1995 Demographics Address [address] [place] [address]- Email Address Preferred Language Kenyan Marital Status Temple Affiliation [employer] Race Other Ethnic Group Not or Author Organization [facility] Address [address] [place], [place] [address]- Encounter HQ Alisia_thomas(FIN) [id number] Date(s): 07/15/16 - 07/16/16 [facility] [address] [place] [address]- Discharge Diagnosis: Acute cervical sprain Discharge Disposition: Home or Self Care Attending Physician: Verona Chung DO Vital Signs Most recent to oldest 1 2 3 [Reference Range]: Height 154.94 cm (07/15/16 10:31 PM) Temperature Oral 98.2 DegF 98.6 DegF 98.8 DegF [96.4-99.1 DegF] (07/16/16 1:16 AM) (07/15/16 11:06 PM) (07/15/16 10:31 PM) Blood Pressure 134/63 mmHg 126/87 mmHg [90-140/60-90 mmHg] (07/16/16 1:16 AM) (07/15/16 10:31 PM) Systolic Blood Pressure 131 mmHg [90-140 mmHg] (07/15/16 11:06 PM) Diastolic Blood Pressure 81 mmHg [60-90 mmHg] (07/15/16 11:06 PM) Respiratory Rate [14-20 16 BRMIN 14 BRMIN 20 BRMIN BRMIN] (07/16/16 1:16 AM) (07/15/16 11:06 PM) (07/15/16 10:31 PM) Peripheral Pulse Rate 110 bpm [60-100 bpm] *HI* (07/15/16 10:31 PM) Weight 84.545 kg (07/15/16 10:31 PM) Body Mass Index 35.22 m2 (07/15/16 10:31 PM) Problem List Condition Effective Dates Status Health Status Informant Arnold-Chiari malformation, type Resolved II(Confirmed) Hydrocephalus(Confirmed) Resolved Depression(Confirmed) Resolved PTSD (post-traumatic stress Resolved disorder)(Confirmed) PTSD (post-traumatic stress Resolved disorder)(Confirmed) Allergies, Adverse Reactions, Alerts Substance Reaction Severity Status amoxicillin Active LaMICtal Active Medical Tape Active penicillins Active Medications ketOROLAC 60 mg, Route: IM, Drug form: INJ, ONCE, Dosing Weight 84.545, kg, Priority: STAT , Start date: 07/15/16 23:21:00 OBIEE ARCHITECT, Stop date: 07/15/16 23:21:00 OBIEE ARCHITECT Start Date: 07/15/16 Stop Date: 07/16/16 Status: CompletedValium 5 mg, Route: IM, Drug form: INJ, ONCE, Dosing Weight 84.545, kg, Priority: STAT , Start date: 07/15/16 23:21:00 OBIEE ARCHITECT, Stop date: 07/15/16 23:21:00 OBIEE ARCHITECT Start Date: 07/15/16 Stop Date: 07/16/16 Status: Completed Results No data available for this section Immunizations No data available for this section Procedures Procedure Date Related Diagnosis Body Site Creation of PHARMACIST CRITICAL CARE shunt Social History Social History Type Response Smoking Status Reg Smoking Cessation Counseling No; Current every day smoker; Type: Cigarettes; Ready to change: No; Concerns about tobacco use in household: No; Exposure to Tobacco Smoke None; Cigarette Smoking Last 365 Days Yes Assessment and Plan No data available for this section
--- OUTSIDE RECORDS SUMMARY | 2018-02-09 18:02 | XMS REPORT | Summary of Care ---
:1995 Demographics Address [address] [place] [phone] Email Address Preferred Language Guamanian Marital Status Zoroastrianism Affiliation [employer] Race Other Ethnic Group Not or Author Organization [facility] Address [address] [place] [phone]- Encounter HQ Hipolitor_thomas(FIN) [id number] Date(s): 07/11/16 - 07/14/[address] Professional Services provided by [facility] [place] [address]- Discharge Disposition: Home or Self Care Attending Physician: Alon Quinones MD Admitting Physician: Alon Quinones MD Referring Physician: Roman Ruiz DO Vital Signs Most recent to oldest 1 2 3 [Reference Range]: Height 152.4 cm (07/11/16 8:34 PM) Temperature Oral 97.9 DegF 98.0 DegF 98.1 DegF [96.4-99.1 DegF] (07/14/16 9:41 AM) (07/13/16 12:30 PM) (07/13/16 8:00 AM) Blood Pressure 111/72 mmHg 117/79 mmHg 110/61 mmHg [90-140/60-90 mmHg] (07/14/16 9:00 AM) (07/14/16 8:00 AM) (07/14/16 7:00 AM) Respiratory Rate [14-20 12 BRMIN 16 BRMIN 13 BRMIN BRMIN] *LOW* (07/14/16 9:00 AM) *LOW* (07/14/16 10:00 AM) (07/14/16 8:00 AM) Peripheral Pulse Rate 84 bpm 75 bpm 81 bpm [60-100 bpm] (07/13/16 11:38 PM) (07/13/16 11:19 PM) (07/13/16 11:04 PM) Weight 84.545 kg 84.545 kg (07/12/16 12:59 AM) (07/11/16 8:34 PM) Body Mass Index 36.4 m2 (07/11/16 8:34 PM) Problem List Condition Effective Dates Status Health Status Informant Arnold-Chiari malformation, type Resolved II(Confirmed) Hydrocephalus(Confirmed) Resolved Depression(Confirmed) Resolved PTSD (post-traumatic stress Resolved disorder)(Confirmed) PTSD (post-traumatic stress Resolved disorder)(Confirmed) Allergies, Adverse Reactions, Alerts Substance Reaction Severity Status amoxicillin Active LaMICtal Active Medical Tape Active penicillins Active Medications acetaminophen 1,000 mg, 2 tab, Route: PO, Drug form: TAB, ONCE, Dosing Weight 84.545, kg, Priority: STAT, Start date: 07/11/16 20:59:00 HYDROGRAPHICAL TECHNICAL OFFICER, Stop date: 07/11/16 20:59:00 HYDROGRAPHICAL TECHNICAL OFFICER Notes: Max acetaminophen 4000 mg/day (4 gm/day). (Same as: Tylenol Extra Strength) Start Date: 07/11/16 Stop Date: 07/11/16 Status: Completedacetaminophen-hydrocodone 325 mg-10 mg oral tablet 1 tab, Route: PO, Drug Form: TAB, Dosing Weight 84.545, kg, Q4H, PRN Pain Score 4-6, Start date: 07/11/16 22:18:00 HYDROGRAPHICAL TECHNICAL OFFICER, Duration: 30 day, Stop date: 08/10/16 22 :17:00 HYDROGRAPHICAL TECHNICAL OFFICER Notes: Do not exceed 4gm/day of acetaminophen. (Same as: Spicer 325/10) Start Date: 07/11/16 Stop Date: 07/14/16 Status: Discontinuedacetaminophen-hydrocodone 325 mg-5 mg oral tablet 1 tab, Route: PO, Drug Form: TAB, Dosing Weight 84.545, kg, Q4H, PRN Pain Score 1-3, Start date: 07/11/16 22:18:00 HYDROGRAPHICAL TECHNICAL OFFICER, Duration: 30 day, Stop date: 08/10/16 22 :17:00 HYDROGRAPHICAL TECHNICAL OFFICER Notes: (Same as: Spicer 325/5) Do not exceed 4gm/day of acetaminophen. Start Date: 07/11/16 Stop Date: 07/14/16 Status: DiscontinuedAtivan 1 mg, 0.5 mL, Route: IVP, Drug form: INJ, ONCE, Dosing Weight 84.545, kg, PRN Anxiety, Start date: 07/13/16 23:15:00 HYDROGRAPHICAL TECHNICAL OFFICER Notes: (Same as: Ativan) Start Date: 07/13/16 Stop Date: 07/14/16 Status: Discontinuedbisacodyl 10 mg, 1 supp, Route: VA, Drug form: SUPP, Daily, Dosing Weight 84.545, kg, PRN Constipation, Start date: 07/11/16 22:18:00 HYDROGRAPHICAL TECHNICAL OFFICER, Duration: 30 day, Stop date: 22:17:00 HYDROGRAPHICAL TECHNICAL OFFICER Notes: (Same As: Dulcolax, Bisco-Lax) Start Date: 07/11/16 Stop Date: 07/14/16 Status: DiscontinuedDextrose 50% Syringe 25 gm, 50 mL, Route: IVP, Drug Form: INJ, Dosing Weight 84.545, kg, PRN, PRN Abnormal Lab Result, Start date: 07/11/16 22:18:00 HYDROGRAPHICAL TECHNICAL OFFICER, Duration: 30 day, Stop date: 08/10/16 22:17:00 HYDROGRAPHICAL TECHNICAL OFFICER Start Date: 07/11/16 Stop Date: 07/14/16 Status: DiscontinuedDextrose 50% Syringe 12.5 gm, 25 mL, Route: IVP, Drug Form: INJ, Dosing Weight 84.545, kg, PRN, PRN Abnormal Lab Result, Start date: 07/11/16 22:18:00 HYDROGRAPHICAL TECHNICAL OFFICER, Duration: 30 day, Stop date: 08/10/16 22:17:00 HYDROGRAPHICAL TECHNICAL OFFICER Start Date: 07/11/16 Stop Date: 07/14/16 Status: DiscontinuedDextrose 50% Syringe 6.25 gm, 12.5 mL, Route: IVP, Drug Form: INJ, Dosing Weight 84.545, kg, PRN, PRN Abnormal Lab Result, Start date: 07/11/16 22:18:00 HYDROGRAPHICAL TECHNICAL OFFICER, Duration: 30 day, Stop date: 08/10/16 22:17:00 HYDROGRAPHICAL TECHNICAL OFFICER Start Date: 07/11/16 Stop Date: 07/14/16 Status: Discontinueddocusate 100 mg, 1 cap, Route: PO, Drug form: CAP, Q12H, Dosing Weight 84.545, kg, Start date: 07/12/16 9:00:00 HYDROGRAPHICAL TECHNICAL OFFICER, Duration: 30 day, Stop date: 08/10/16 21:00:00 HYDROGRAPHICAL TECHNICAL OFFICER Notes: (Same as: Colace) (Do Not Crush) Start Date: 07/12/16 Stop Date: 07/14/16 Status: Discontinueddocusate sodium 100 mg oral capsule 100 mg=1 cap, PO, Q12H, # 28 cap, 0 Refill(s) Start Date: 07/12/16 Stop Date: 07/26/16 Status: Orderedinsulin regular 100 units/mL human recombinant 5 unit, 0.05 mL, Route: SUB-Q, Drug form: SOLN, PRN, Dosing Weight 84.545, kg, PRN Abnormal Lab Result, Start date: 07/11/16 22:18:00 HYDROGRAPHICAL TECHNICAL OFFICER, Duration: 30 day, Stop date: 08/10/16 22:17:00 HYDROGRAPHICAL TECHNICAL OFFICER Notes: (Same as: Humulin R) Roll in palms of hands gently; Do not shake vigorously. "single patientuse only"(Restricted to patients requiring a dose > 60 units)WASTE: F/P - Black; E - Municipal Trash Bin Stable for 28 days at room temperatureExpires in days from Date Start Date: 07/11/16 Stop Date: 07/14/16 Status: Discontinuedinsulin regular 100 units/mL human recombinant 7 unit, 0.07 mL, Route: SUB-Q, Drug form: SOLN, PRN, Dosing Weight 84.545, kg, PRN Abnormal Lab Result, Start date: 07/11/16 22:18:00 HYDROGRAPHICAL TECHNICAL OFFICER, Duration: 30 day, Stop date: 08/10/16 22:17:00 HYDROGRAPHICAL TECHNICAL OFFICER Notes: (Same as: Humulin R) Roll in palms of hands gently; Do not shake vigorously. "single patientuse only"(Restricted to patients requiring a dose > 60 units)WASTE: F/P - Black; E - Municipal Trash Bin Stable for 28 days at room temperatureExpires in days from Date Start Date: 07/11/16 Stop Date: 07/14/16 Status: Discontinuedinsulin regular 100 units/mL human recombinant 3 unit, 0.03 mL, Route: SUB-Q, Drug form: SOLN, PRN, Dosing Weight 84.545, kg, PRN Abnormal Lab Result, Start date: 07/11/16 22:18:00 HYDROGRAPHICAL TECHNICAL OFFICER, Duration: 30 day, Stop date: 08/10/16 22:17:00 HYDROGRAPHICAL TECHNICAL OFFICER Notes: (Same as: Humulin R) Roll in palms of hands gently; Do not shake vigorously. "single patientuse only"(Restricted to patients requiring a dose > 60 units)WASTE: F/P - Black; E - Municipal Trash Bin Stable for 28 days at room temperatureExpires in days from Date Start Date: 07/11/16 Stop Date: 07/14/16 Status: DiscontinuedNS (Bolus) IV 1,000 mL, 1,000 ml/hr, Infuse Over: 1 hr, Route: IV, 1,000, Drug form: INJ, ONCE , Priority: STAT, Dosing Weight 84.545 kg, Start date: 07/11/16 20:59:00 HYDROGRAPHICAL TECHNICAL OFFICER, Duration: 1 doses or times, Stop date: 07/11/16 20:59:00 HYDROGRAPHICAL TECHNICAL OFFICER Start Date: 07/11/16 Stop Date: 07/11/16 Status: Completednystatin topical 100,000 units/g cream 1 appl, Route: TOP, TID, Drug form: CRM, Start date: 07/13/16 17:00:00 HYDROGRAPHICAL TECHNICAL OFFICER, Duration: 30 day, Stop date: 08/12/16 13:00:00 HYDROGRAPHICAL TECHNICAL OFFICER Notes: (Same as:Mycostatin, Nilstat) For external use only. Start Date: 07/13/16 Stop Date: 07/14/16 Status: Discontinuednystatin-triamcinolone topical cream 1 appl, Route: TOP, TID, Drug form: CRM, Start date: 07/13/16 9:00:00 HYDROGRAPHICAL TECHNICAL OFFICER, Duration: 30 day, Stop date: 08/11/16 17:00:00 HYDROGRAPHICAL TECHNICAL OFFICER Start Date: 07/13/16 Stop Date: 07/13/16 Status: Discontinuedondansetron 4 mg, 2 mL, Route: IVP, Drug form: INJ, Q8H, Dosing Weight 84.545, kg, PRN Nausea & Vomiting, Start date: 07/11/16 22:18:00 HYDROGRAPHICAL TECHNICAL OFFICER, Duration: 30 day, Stop date: 08/10/16 22:17:00 HYDROGRAPHICAL TECHNICAL OFFICER Notes: (Same as: Zofran) MEDICATION WASTE Product Size: 4 mgProduct Wasted: _0__ mg Start Date: 07/11/16 Stop Date: 07/14/16 Status: Discontinuedpromethazine 12.5 mg, 0.5 mL, Route: IVPB, Drug form: INJ, Q4H, Dosing Weight 84.545, kg, PRN as needed for nausea/vomiting, Start date: 07/12/16 16:17:00 HYDROGRAPHICAL TECHNICAL OFFICER, Duration: 30 day, Stop date: 08/11/16 16:16:00 HYDROGRAPHICAL TECHNICAL OFFICER Notes: Do not give IV push. (Same as: Phenergan) Start Date: 07/12/16 Stop Date: 07/14/16 Status: DiscontinuedReglan 10 mg, 2 mL, Route: IVP, Drug form: INJ, ONCE, Dosing Weight 84.545, kg, Priority: STAT, Start date:07/11/16 20:59:00 HYDROGRAPHICAL TECHNICAL OFFICER, Stop date: 07/11/16 20:59:00 HYDROGRAPHICAL TECHNICAL OFFICER Notes: (Same as: Reglan) Start Date: 07/11/16 Stop Date: 07/11/16 Status: CompletedSaline Flush 0.9% 10 ml, Route: IVP, Drug Form: INJ, Dosing Weight 84.545, kg, PRN, PRN Line Flush , Start date: 07/11/16 22:18:00 HYDROGRAPHICAL TECHNICAL OFFICER, Duration: 30 day, Stop date: 08/10/16 22:17 :00 HYDROGRAPHICAL TECHNICAL OFFICER Notes: (Same as: BD Posiflush) Start Date: 07/11/16 Stop Date: 07/14/16 Status: DiscontinuedSaline Flush 0.9% 10 ml, Route: IVP, Drug Form: INJ, Dosing Weight 84.545, kg, Q12H, Start date: 07/12/16 9:00:00 HYDROGRAPHICAL TECHNICAL OFFICER,Duration: 30 day, Stop date: 08/10/16 21:00:00 HYDROGRAPHICAL TECHNICAL OFFICER Notes: (Same as: BD Posiflush) Start Date: 07/12/16 Stop Date: 07/14/16 Status: Discontinuedsenna 8.6 mg, 1 tab, Route: PO, Drug Form: TAB, Dosing Weight 84.545, kg, Q12H, Start date: 07/12/16 9:00:00 HYDROGRAPHICAL TECHNICAL OFFICER, Duration: 30 day, Stop date: 08/10/16 21:00:00 HYDROGRAPHICAL TECHNICAL OFFICER Notes: (Same as: Olman) Start Date: 07/12/16 Stop Date: 07/14/16 Status: Discontinuedsenna 8.6 mg oral tablet 8.6 mg=1 tab, PO, Q12H, X 14 day, # 28 tab, 0 Refill(s) Start Date: 07/12/16 Stop Date: 07/26/16 Status: OrderedSodium Chloride 0.9% (Bolus) IV 250 mL, 250 ml/hr, Infuse Over: 1 hr, Route: IV, 250, Drug form: INJ, ONCE, Priority: STAT, Dosing Weight 84.545 kg, Start date: 07/12/16 16:18:00 HYDROGRAPHICAL TECHNICAL OFFICER, Duration: 1 doses or times, Stop date: 07/12/16 16:18:00 HYDROGRAPHICAL TECHNICAL OFFICER Start Date: 07/12/16 Stop Date: 07/12/16 Status: Completedsodium chloride 0.9% 1000 ml INJ 1,000 mL 1,000 mL, Rate: 75 ml/hr, Infuse over: 13.3 hr, Route: IV, Dosing Weight 84.545 kg, Total Volume: 1,000, Start date: 07/11/16 22:18:00 HYDROGRAPHICAL TECHNICAL OFFICER, Duration: 30 day, Stop date: 08/10/16 22:17:00 HYDROGRAPHICAL TECHNICAL OFFICER Start Date: 07/11/16 Stop Date: 07/14/16 Status: DiscontinuedUltram 50 mg oral tablet 50 mg, 1 tab, Route: PO, Drug form: TAB, Q4H, Dosing Weight 84.545, kg, PRN Pain Score 1-3, Start date: 07/12/16 7:14:00 HYDROGRAPHICAL TECHNICAL OFFICER, Duration: 30 day, Stop date: 08/11/16 7:13:00 HYDROGRAPHICAL TECHNICAL OFFICER Notes: Not to exceed 400mg/day. (Same As: Dl) Start Date: 07/12/16 Stop Date: 07/14/16 Status: DiscontinuedUltram 50 mg oral tablet 50 mg=1 tab, PO, Q4H, PRN for pain, X 10 day, # 60 tab, 0 Refill(s) Start Date: 07/12/16 Stop Date: 07/12/16 Status: DiscontinuedUltram 50 mg oral tablet 50 mg=1 tab, PO, Q4H, PRN for pain, X 10 day, # 60 tab, 0 Refill(s) Start Date: 07/12/16 Stop Date: 07/22/16 Status: Ordered Results BLOOD BANK RESULTS Most recent to oldest [Reference Range]: 1 2 ABO/Rh A POS *Unknown* (07/11/16 11:50 PM) Antibody Scrn Negative (07/11/16 11:50 PM) ELECTROLYTES Most recent to oldest [Reference Range]: 1 2 Sodium Lvl [135-145 mEq/L] 142 mEq/L 142 mEq/L (07/13/16 1:33 AM) (07/11/16 9:20 PM) Potassium Lvl [3.5-5.1 mEq/L] 3.9 mEq/L 3.5 mEq/L (07/13/16 1:33 AM) (07/11/16 9:20 PM) Chloride Lvl [95-109 mEq/L] 108 mEq/L 104 mEq/L (07/13/16 1:33 AM) (07/11/16 9:20 PM) CO2 [24-32 mEq/L] 23 mEq/L 26 mEq/L *LOW* (07/11/16 9:20 PM) (07/13/16 1:33 AM) AGAP [10.0-20.0 mEq/L] 14.9 mEq/L 15.5 mEq/L (07/13/16 1:33 AM) (07/11/16 9:20 PM) CHEM PANEL Most recent to oldest [Reference Range]: 1 2 Creatinine Lvl [0.50-1.40 mg/dL] 0.61 mg/dL 0.75 mg/dL (07/13/16 1:33 AM) (07/11/16 9:20 PM) eGFR 128 mL/min/1.73m2 1 113 mL/min/1.73m2 2 *NA* *NA* (07/13/16 1:33 AM) (07/11/16 9:20 PM) BUN [7-22 mg/dL] 7 mg/dL 6 mg/dL (07/13/16 1:33 AM) *LOW* (07/11/16 9:20 PM) Glucose Lvl [70-99 mg/dL] 88 mg/dL 93 mg/dL (07/13/16 1:33 AM) (07/11/16 9:20 PM) Calcium Lvl [8.5-10.5 mg/dL] 8.8 mg/dL 8.8 mg/dL (07/13/16 1:33 AM) (07/11/16 9:20 PM) 1Result Comment: The eGFR is calculated using the CKD-EPI formula. In most young , healthy individualsthe eGFR will be >90 mL/min/1.73m2. The eGFR declines with age. An eGFR of 60-89 may be normal in some populations, particularly the elderly, for whom the CKD-EPI formula has not been extensively validated. Use of the eGFR is not recommended in the following populations: Individuals with unstable creatinine concentrations, including patients and those with serious co-morbid conditions. Patients with extremes in muscle mass or diet. The data above are obtained from the National Kidney Disease Education Program ( NKDEP) which additionally recommends that when the eGFR is used in patients with extremes of body mass index for purposesof drug dosing, the eGFR should be multiplied by the estimated BMI.2Result Comment: The eGFR is calculated using the CKD-EPI formula. In most young, healthy individualsthe eGFR will be >90 mL/ min/1.73m2. The eGFR declines with age. An eGFR of 60-89 may be normal in some populations, particularly the elderly, for whom the CKD-EPI formula has not been extensively validated. Use of the eGFR is not recommended in the following populations: Individuals with unstable creatinine concentrations, including patients and those with serious co-morbid conditions. Patients with extremes in muscle mass or diet. The data above are obtained from the National Kidney Disease Education Program ( NKDEP) which additionally recommends that when the eGFR is used in patients with extremes of body mass index for purposesof drug dosing, the eGFR should be multiplied by the estimated BMI.CARDIAC ENZYMES Most recent to oldest [Reference Range]: 1 2 Total CK [12-191 unit/L] 33 unit/L (07/12/16 4:45 PM) Troponin-T [0.000-0.100 ng/mL] <0.010 ng/mL (07/12/16 4:45 PM) MYOGLOBIN Most recent to oldest [Reference Range]: 1 2 Myoglobin [25-72 ng/mL] 35 ng/mL (07/12/16 4:45 PM) DRUG SCREEN Most recent to oldest [Reference Range]: 1 2 U Methadone Scr [Negative] Negative *NA* (07/12/16 12:39 AM) U Propoxyph Scr [Negative] Negative *NA* (07/12/16 12:39 AM) U Amph Scr [Negative] Negative *NA* (07/12/16 12:39 AM) U Tori Scr [Negative] Negative *NA* (07/12/16 12:39 AM) U Benzodia Scr [Negative] Negative *NA* (07/12/16 12:39 AM) U Cocaine Scr [Negative] Negative *NA* (07/12/16 12:39 AM) U Opiate Scr [Negative] Negative *NA* (07/12/16 12:39 AM) U Phencyc Scr [Negative] Negative *NA* (07/12/16 12:39 AM) U Cannab Scr [Negative] Negative *NA* (07/12/16 12:39 AM) UDS Note See Note *NA* (07/12/16 12:39 AM) URINE CHEM Most recent to oldest [Reference Range]: 1 2 U Preg [Negative] Negative (07/12/16 12:39 AM) URINE AND STOOL Most recent to oldest [Reference Range]: 1 2 UA Turbidity [Clear] Clear (07/12/16 12:39 AM) UA Color [Yellow] Yellow *NA* (07/12/16 12:39 AM) UA pH [5.0-8.0] 6.5 (07/12/16 12:39 AM) UA Spec Grav [<=1.030] 1.011 (07/12/16 12:39 AM) UA Glucose [Negative mg/dL] Negative mg/dL *NA* (07/12/16 12:39 AM) UA Blood [Negative] Negative (07/12/16 12:39 AM) UA Ketones [Negative mg/dL] Negative mg/dL *NA* (07/12/16 12:39 AM) UA Protein [Negative mg/dL] Negative mg/dL (07/12/16 12:39 AM) UA Urobilinogen [0.1-1.0 mg/dL] <=1.0 mg/dL *NA* (07/12/16 12:39 AM) UA Bili [Negative] Negative *NA* (07/12/16 12:39 AM) UA Leuk Est [Negative] Negative (07/12/16 12:39 AM) UA Nitrite [Negative] Negative (07/12/16 12:39 AM) UA WBC [0-5 /HPF] 1 /HPF (07/12/16 12:39 AM) UA Sq Epi [Few /LPF] Moderate /LPF *ABN* (07/12/16 12:39 AM) Micro? Not Indicated *NA* (07/12/16 12:39 AM) BODY FLUIDS Most recent to oldest [Reference Range]: 1 2 Glucose CSF [45-80 mg/dL] 56 mg/dL (07/13/16 7:35 AM) Protein CSF [15-45 mg/dL] 34 mg/dL (07/13/16 7:35 AM) Tube Num CSF xxxxxxx (07/13/16 7:35 AM) Color CSF [Colorless] Colorless (07/13/16 7:35 AM) Clarity CSF [Clear] Clear (07/13/16 7:35 AM) Supernat CSF [Colorless] Colorless (07/13/16 7:35 AM) RBC CSF [0-0 /mm3] 0 /mm3 (07/13/16 7:35 AM) WBC CSF [0-5 /mm3] 1 /mm3 (07/13/16 7:35 AM) IMMUNOLOGY Most recent to oldest [Reference Range]: 1 2 IgG Lvl CSF [2.0-4.0 mg/dL] 1.7 mg/dL *LOW* (07/13/16 7:35 AM) IgG (CPE) [694-1618 mg/dL] 1010 mg/dL (07/13/16 7:35 AM) Alb CSF (CPE) [14.0-25.0 mg/dL] 14.7 mg/dL (07/13/16 7:35 AM) Alb (CPE) [3400.0-5000.0 mg/dL] 4100.0 mg/dL (07/13/16 7:35 AM) IgG Index [0.3-0.7 mg/dL] 0.5 mg/dL (07/13/16 7:35 AM) PE Interp CSF CSF protein electrophoresis did not reveal evidence of an oligoclonal process in the [employer]. The CSF IgG index is within the reference range indicating that there is no elevation in intracerebral IgG synt hesis. There is also no evidence of increased permeability of the blood brain barrier based on the CSF/serum albumin ratio. The electronic medical record has been reviewed for relevant history. I have personally reviewed the test results and concur with the resident's interpretation. CPT: 28814-RY *NA* (07/13/16 7:35 AM) Description CSF The gel demonstrates appropriate resolution of the main protein bands. The gamma region shows continuous distribution of proteins both in the CSF and in the serum. No oligoclonal bands are detected. *NA* (07/13/16 7:35 AM) HEMATOLOGY Most recent to oldest [Reference Range]: 1 2 WBC [3.7-10.4 K/CMM] 7.2 K/CMM 9.4 K/CMM (07/13/16 1:33 AM) (07/12/16 12:39 AM) RBC [4.20-5.40 M/CMM] 4.53 M/CMM 4.46 M/CMM (07/13/16 1:33 AM) (07/12/16 12:39 AM) Hgb [12.0-16.0 g/dL] 13.0 g/dL 12.6 g/dL (07/13/16 1:33 AM) (07/12/16 12:39 AM) Hct [36.0-48.0 %] 38.5 % 37.4 % (07/13/16 1:33 AM) (07/12/16 12:39 AM) MCV [80.0-98.0 fL] 84.9 fL 83.9 fL (07/13/16 1:33 AM) (07/12/16 12:39 AM) MCH [27.0-31.0 pg] 28.8 pg 28.3 pg (07/13/16 1:33 AM) (07/12/16 12:39 AM) MCHC [32.0-36.0 g/dL] 33.9 g/dL 33.8 g/dL (07/13/16 1:33 AM) (07/12/16 12:39 AM) RDW [11.5-14.5 %] 14.0 % 13.5 % (07/13/16 1:33 AM) (07/12/16 12:39 AM) Platelet [133-450 K/CMM] 283 K/CMM 306 K/CMM (07/13/16 1:33 AM) (07/12/16 12:39 AM) MPV [7.4-10.4 fL] 9.2 fL 9.3 fL (07/13/16 1:33 AM) (07/12/16 12:39 AM) Segs [45.0-75.0 %] 52.1 % 58.7 % (07/13/16 1:33 AM) (07/12/16 12:39 AM) Lymphocytes [20.0-40.0 %] 37.9 % 32.5 % (07/13/16 1:33 AM) (07/12/16 12:39 AM) Monocytes [2.0-12.0 %] 7.3 % 6.5 % (07/13/16 1:33 AM) (07/12/16 12:39 AM) Eosinophils [0.0-4.0 %] 1.9 % 1.4 % (07/13/16 1:33 AM) (07/12/16 12:39 AM) Basophils [0.0-1.0 %] 0.8 % 0.9 % (07/13/16 1:33 AM) (07/12/16 12:39 AM) Segs-Bands # [1.5-8.1 K/CMM] 3.8 K/CMM 5.5 K/CMM (07/13/16 1:33 AM) (07/12/16 12:39 AM) Lymphocytes # [1.0-5.5 K/CMM] 2.7 K/CMM 3.0 K/CMM (07/13/16 1:33 AM) (07/12/16 12:39 AM) Monocytes # [0.0-0.8 K/CMM] 0.5 K/CMM 0.6 K/CMM (07/13/16 1:33 AM) (07/12/16 12:39 AM) Eosinophils # [0.0-0.5 K/CMM] 0.1 K/CMM 0.1 K/CMM (07/13/16 1:33 AM) (07/12/16 12:39 AM) Basophils # [0.0-0.2 K/CMM] 0.1 K/CMM 0.1 K/CMM (07/13/16 1:33 AM) (07/12/16 12:39 AM) PT [12.0-14.7 seconds] 13.0 seconds 13.6 seconds (07/13/16 1:33 AM) (07/12/16 12:39 AM) INR [0.85-1.17] 0.96 1.02 (07/13/16 1:33 AM) (07/12/16 12:39 AM) PTT [22.9-35.8 seconds] 31.9 seconds 33.7 seconds (07/13/16 1:33 AM) (07/12/16 12:39 AM) Immunizations No data available for this section Procedures Procedure Date Related Diagnosis Body Site Creation of WELDER GAS shunt Social History Social History Type Response Smoking Status Reg Smoking Cessation Counseling No; Current every day smoker; Type: Cigarettes; Ready to change: No; Concerns about tobacco use in household: No; Exposure to Tobacco Smoke None; Cigarette Smoking Last 365 Days Yes Assessment and Plan Extracted from: Title: Neurology consult note Author: Keiko Del Rosario MD Date: 07/13/16 General Neurology Consult Referring physician (name/service): Neurosurgery Referring team contact number: Time of consult: 1708 Consulting attending: Dr Mason Reason for consult: possible seizure Chief Complaint: Headache HISTORY OF PRESENT ILLNESS: Hisory obtained from: Patient/ mother History provided reliable This is a 21 y/o female with PMH of agenesis of corpus collosum, chiari II presented with headache for past 2 days, patient also has had h./o seisure as spells of staring which last one happened when s he was 8 y/o, neurology was consulted for possibility for seizure. She was getting treatment for seizure by age 16 when she stopped taking by herself and she did not have any more episode. Since past 2 days she has had headache, with phtophobia and nausea , BL occipital progressive , dull/stabbing character. Patient usually gets aspirin . her last headache was few months ago , her last WELDER GAS shunt revision was 10 years ago. Patient reported that has has similar headache 10 years ago. Review of Systems: GEN: No fever, chills, night sweats, weight loss, fatigue EYES: double vision, ENT: No decreased hearing, nose bleeding, nasal congestion, sore throat CARDIO: No chest pain, palpitation, orthopnea, dyspnea on exertion PULM: No shortness of breath, cough, wheezing, asthma, sputum, hemoptysis GI: No nausea, vomiting, diarrhea, constipation, Abdominal Pain : No frequency, burning, hematuria, nocturia, hesitancy NEURO: As per HPI ENDO: No weight loss, weight gain, heat intolerance, cold intolerance SKIN: No rash, lesion, itching MUSC: No joint pain, muscle pain, arthritis, back pain Past Medical History: Seizure disorder Agenesis of corpus collosum, Chiari II, s/p WELDER GAS shunt Past Surgical History: WELDER GAS shunt Family History: Noncontirbutory Social History: smokes 1 pack in 3 days , denies alcohol Medications: vitamin Allergies: NKDA Physical Exam: APPEARANCE - Active, alert, well developed, well nourished HEAD - Normocephalic and atraumatic EYES - Pupil equal and reactive to light PHARYNX - Mouth pink, mucous membranes moist. No tonsillar enlargement NECK - Supple, thyroid non-palpable, no significant adenopathy LUNGS - Clear to auscultation, no rales or rhonchi CV - Rate rhythm regular, no murmur, equal pulses bilaterally. ABDOMEN - Soft, non tender, with normal bowel sounds. SPINE - Straight, no defects, no scoliosis SKIN: Clear, no rashes NEUROLOGY: Mental Status: Patient is awake alert, fully oriented to person, place, time and . Speech/language: Naming, Repetition, comprehension and fluency are intact. Cranial Nerves: EOMI, visual grant full, pupils mm briskly reactive bilaterally, facial sensation intact, face symmetric, hearing intact, tongue/ uvula/soft palate midline, normal sternocleidomastoid an d trapezius muscle strength. No evidence of tongue atrophy or fibrillations, Motor - R UE- Deltoid 5/5, Triceps 5/5, Biceps 5/5, Wrist flexion 5/5, Wrist extension 5/5 L UE- Deltoid 5/5, Triceps 5/5, Biceps 5/5, Wrist flexion 5/5, Wrist extension 5/5 R LE- 4/5 LLE- 4/5 Tone is normal Sensation- intact to pinprick, temperature, vibration, and proprioception and equal bilaterally Coordination: FTN wnl, heel to espinoza WNL with no signs of dysmetria. Gait- deferred Reflexes- R Triceps2+, Biceps 2+, Brachioradialis 2+, Patellar 2+, Ankle 2+ L Triceps2+, Biceps 2+, Brachioradialis 2+, Patellar 2+, Ankle 2+ Toes down going bilaterally Labs: no leukocytosis Diagnostic Tests CT- Brain stable WELDER GAS shunt, nothing to compare MRI Brain: not available Assessment: 21 y/o female with PMH of agenesis of corpus collosum, chiari II s/p WELDER GAS shunt , h/o seizure presented with BL ocipital headache for past 2 days with photophobia and nausea. neurology consulted for se izure evaluation. On exam has no visual field defect , mild LE weakness BL. Patient was evalauted with ophthalmology , neurosurgery also is evaluating for headache cause which can be due to WELDER GAS shunt mal function , although no ventriculomegaly for now but will repeat CT in AM Plan: Regarding seizure standpoaint, patient does not look like to have seizure in this episode. but it is worthed to do routine EEG. HEadache seems to be due to WELDER GAS shunt malfunction , managed per neurosurgery team Neurology will follow - We recommend the patient be admitted for observation under neurosurgery The case was discussed with the Neurology Consult attending ___Marlon . Thank you for this interesting consult, the neurology consult team will continue to follow with you. Please page [phone] should you have any queries or concerns. 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 She has been diagnosed previously with migraine and seizures (was on depakote , allergic to Lamictal). Patient has a fixed belief of "cryptic " ( according to her it means, undetectable preganacy , which can last from 1-5years , currently she is in 73rd week) . For the pancho son of her crytpic , she possibly stopped the AEDs by herself. She has /had an allergy to Lamictal. Vitals and Temp: Vitals Tmp(F) Pulse BP RR SpO2 FIO2 07/13 12:37 ---- 91 ----- 17 --- --- 07/13 12:30 98.0 --- ----- -- --- --- 07/13 12:00 ---- 90 ----- 17 100 --- 07/13 10:21 ---- 95 106/76 18 98 --- 07/13 08:00 98.1 68 ----- 14 97 --- 24 Hr Tmax: 98.1F (36.72c) at 07/13 08:00 Vital Signs are the last 5 in the past 48 hours. Scheduled Meds (4):docusate, nystatin-triamcinolone topical (nystatin- triamcinolone topical cream), senna, sodium chloride (Saline Flush 0.9%) Unscheduled Meds: None PRN Meds (13):Dextrose 50% in Water IV (Dextrose 50% Syringe), Dextrose 50% in Water IV (Dextrose 50% Syringe), Dextrose 50% in Water IV (Dextrose 50% Syringe) , Insulin regular (insulin regular 100 unit s/mL human recombinant), Insulin regular (insulin regular 100 units/mL human recombinant), Insulin regular (insulin regular 100 units/mL human recombinant), acetaminophen-hydrocodone (acetaminophen-hydr ocodone 325 mg-5 mg oral tablet), acetaminophen-hydrocodone (acetaminophen- hydrocodone 325 mg-10 mg oral tablet), bisacodyl, ondansetron, promethazine, sodium chloride (Saline Flush 0.9%), tramadol (Ultram 50 mg oral tablet) One Time Meds (1):(Completed) Sodium Chloride 0.9% IV (Sodium Chloride 0.9% ( Bolus) IV) Continuous Infusions (1):sodium chloride 0.9% 1000 ml INJ 1,000 mL Recommendations: - MRI Brain w and wo - EEG (CORINE) - If EEG negative, no AEDs required at this point. Thank you for this interesting consult, the neurology consult team will continue to follow with you. Please page [phone] should you have any queries or concerns. ---- Dwight Metcalf MD, MPH. PGY-1 Psychiatry Performance Improvement Director Neuro Consult Service [email or web address] Pager [phone] Neurology Attending Physician Statement: The patient was seen and examined by me on 07/13/2016 with the resident, Dr. Metcalf and I agree with the History/Exam/Medical Decision Making document. 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 her seizure like episode described as dream like stage with no LOC, last 30 sec to 10 min, frequency once a day, trigger stress at work, some headache and tiredness after these episode of note: She reports a skin rash from Lamictal in the past. reports hx of migraine headache and being on Imitrex in the past. 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 Reflexes symmetric and normal. she had one of her dream like state episode during exam, she covered her face and eyes with both hands, she was able to answer oreintation questions during the episode and then continued with our conversation. she reports being for 73 weeks (cryptogenic per patient) , feels the baby movement and also felt this and enabling her. she is getting her regular mensturation and t est is negative. She believes she is since her miscarrage at 9 weeks in April 2015, mother at bedside but this is the first time she is seeing her over the last year due to her rest riction. Mother reports significant weight gain and depression. Impression: needs to r/o seizure and post ictal headache, needs outpatient psychiatrist help with cognitive behavior therapy for depression and pseudocyesis( mother is agreed) Plan: spot EEG to look for epiletiform discharges, if negative would suggest EEG monitoring unit admission in order to capture her episodes ( dream like state) and further characterization. Given her false beliefs, and childbearing age would not recommend any prophylactic medication at this point. Danyel Schneider MD Forwarder Operator of Neurology. Pager:[phone]
--- NOTE | 2018-02-09 18:52 | EDPHYS ---
Physician Documentation [facility] Name: Shanna Estrella Age: 22 yrs Sex: Female : 1995 Arrival Date: 02/09/2018 Time: 18:15 Bed 15 Private MD: None, None ED Physician Francisco Becerra HPI: 02/09 18:58 This 22 yrs old Female presents to ER via EMS with complaints of Seizure. snw 18:58 The patient presents with a history of multiple seizures, a total of 4, 2 absence snw seizures and 2 tonic clonic s/p watching [employer], fatigue, the episode(s) was witnessed, by a friend. Character of seizure(s): Loss of consciousness: the patient did not lose consciousness, Motor activity: generalized, shaking all over, Incontinence: none, Apnea: the patient did not experience apnea, Circulation: the patient did not experience evidence of pulse disturbance, Eye movements: are unknown. Seizure onset: today. Context: the seizure(s) was witnessed, by a friend, occurred at home, occurred while the patient was post watching movies. Seizure Hx: Original onset: longstanding, Cause: Epilepsy, Last seizure: The patient's last seizure was approximately 2 day(s) ago, Usual frequency: roughly every 2 day(s), Seizure medications: none. Associated injury: The patient did not suffer any apparent associated injury. Current symptoms: confusion. The patient has experienced similar episodes in the past. The patient has not recently seen a physician. 19:06 pt states she does not take antiepileptics because she cannot afford them, does not go snw to PCP for monetary reasons. Encouraged to take Keppra. Pt states she does not want to because it causes weight gain.. 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 - Ebola Screening: : Patient negative for fever greater than or equal to 101.5 degrees Fahrenheit, and additional compatible Ebola Virus Disease symptoms. - Social history:: Smoking status: Patient uses tobacco products, denies chronic smoking, but will smoke occasionally. ROS: 18:57 Constitutional: Negative for fever, chills, and weight loss, Eyes: Negative for injury, snw pain, redness, and discharge, ENT: Negative for injury, pain, and discharge, Neck: Negative for injury, pain, and swelling, Cardiovascular: Negative for chest pain, palpitations, and edema, Respiratory: Negative for shortness of breath, cough, wheezing, and pleuritic chest pain, Abdomen/GI: Negative for abdominal pain, nausea, vomiting, diarrhea, and constipation, Back: Negative for injury and pain, : Negative for injury, bleeding, discharge, and swelling, MS/Extremity: Negative for injury and deformity, Skin: Negative for injury, rash, and discoloration, Psych: Negative for depression, anxiety, suicide ideation, homicidal ideation, and hallucinations. 18:57 Neuro: Positive for seizure activity. Exam: 18:56 Constitutional: This is a well developed, well nourished patient who is awake, alert, snw and in no acute distress. Head/Face: Normocephalic, atraumatic. Eyes: Pupils equal round and reactive to light, extra-ocular motions intact. Lids and lashes normal. Conjunctiva and sclera are non-icteric and not injected. Cornea within normal limits. Periorbital areas with no swelling, redness, or edema. ENT: Nares patent. No nasal discharge, no septal abnormalities noted. Tympanic membranes are normal and external auditory canals are clear. Oropharynx with no redness, swelling, or masses, exudates, or evidence of obstruction, uvula midline. Mucous membranes moist. Neck: Trachea midline, no thyromegaly or masses palpated, and no cervical lymphadenopathy. Supple, full range of motion without nuchal rigidity, or vertebral point tenderness. No Meningismus. Chest/axilla: Normal chest wall appearance and motion. Nontender with no deformity. No lesions are appreciated. Cardiovascular: Regular rate and rhythm with a normal S1 and S2. No gallops, murmurs, or rubs. Normal PMI, no JVD. No pulse deficits. Respiratory: Lungs have equal breath sounds bilaterally, clear to auscultation and percussion. No rales, rhonchi or wheezes noted. No increased work of breathing, no retractions or nasal flaring. Abdomen/GI: Soft, non-tender, with normal bowel sounds. No distension or tympany. No guarding or rebound. No evidence of tenderness throughout. Back: No spinal tenderness. No costovertebral tenderness. Full range of motion. Skin: Warm, dry with normal turgor. Normal color with no rashes, no lesions, and no evidence of cellulitis. Ecchymosis to right lateral hand, s/p bumping on counter 2 days ago, no c/o now MS/ Extremity: Pulses equal, no cyanosis. Neurovascular intact. Full, normal range of motion. Neuro: Awake and alert, GCS 15, oriented to person, place, time, and situation. Cranial nerves II-XII grossly intact. Motor strength 5/5 in all extremities. Sensory grossly intact. Cerebellar exam normal. Normal gait. Psych: Awake, alert, with orientation to person, place and time. Behavior, mood, and affect are within normal limits. Vital Signs: 17:58 BP 110 / 84; Pulse 104; Resp 20; Temp 98.5(O); Pulse Ox 99% on R/A; Weight 81.74 kg rb1 (R); Height 5 ft. 4 in. (162.56 cm) (R); Pain 7/10; 18:55 BP 122 / 88; Pulse 113; Resp 19; Pulse Ox 97% on R/A; rb1 17:58 Body Mass Index 30.93 (81.74 kg, 162.56 cm) rb1 Kelli Coma Score: 17:58 Eye Response: spontaneous(4). Verbal Response: oriented(5). Motor Response: obeys rb1 commands(6). Total: 15. MDM: 18:28 Patient medically screened. rico 18:58 Data reviewed: vital signs, nurses notes. Data interpreted: Pulse oximetry: on room air snw is 99 %. Interpretation: normal. Counseling: I had a detailed discussion with the patient and/or guardian regarding: the historical points, exam findings, and any diagnostic results supporting the discharge/admit diagnosis, the need for outpatient follow up, to return to the emergency department if symptoms worsen or persist or if there are any questions or concerns that arise at home. Special discussion: Based on the history and exam findings, there is no indication for further emergent testing or inpatient evaluation. I discussed with the patient/guardian the need to see the primary care provider for further evaluation of the symptoms. Administered Medications: 19:09 Drug: Keppra 500 mg Route: PO; rb1 19:09 Follow up: Response: Medication administered at discharge. rb1 19:09 Drug: Zofran 4 mg Route: PO; rb1 19:09 Follow up: Response: Medication administered at discharge. rb1 Disposition: 02/10 06:57 Co-signature as Attending Physician, Francisco Becerra MD I agree with the assessment and rico plan of care. Disposition: 02/09/18 18:52 Discharged to Home. Impression: Epilepsy, unspecified, not intractable, without status epilepticus. - Condition is Stable. - Discharge Instructions: Epilepsy. - Prescriptions for Keppra 500 mg Oral Tablet - take 1 tablet by ORAL route every 12 hours; 20 tablet. Zofran 4 mg Oral Tablet - take 1 tablet by ORAL route 3-4 times daily As needed; 20 tablet. - Medication Reconciliation Form, Thank You Letter, Antibiotic Education, Prescription Opioid Use form. - Follow up: Private Physician; When: 1 - 2 days; Reason: Recheck today's complaints, Continuance of care, Re-evaluation by your physician. Signatures: Francisco Becerra MD MD cha Therrien, Shelly, SHRIMP PEELING MACHINE OPERATOR-C SHRIMP PEELING MACHINE OPERATOR-Csnw Karen Nieves, RN RN rb1 Corrections: (The following items were deleted from the chart) 02/09 19:13 18:52 02/09/2018 18:52 Discharged to Home. Impression: Epilepsy, unspecified, not rb1 intractable, without status epilepticus. Condition is Stable. Forms are Medication Reconciliation Form, Thank You Letter, Antibiotic Education, Prescription Opioid Use. Follow up: Private Physician; When: 1 - 2 days; Reason: Recheck today's complaints, Continuance of care, Re-evaluation by your physician. snw
--- NOTE | 2018-02-09 18:52 | ER ---
Nurse's Notes [facility] Name: Shanna Estrella Age: 22 yrs Sex: Female : 1995 Arrival Date: 02/09/2018 Time: 18:15 Bed 15 Private MD: None, None Diagnosis: Epilepsy, unspecified, not intractable, without status epilepticus Presentation: 02/09 17:58 Presenting complaint: EMS states: Pt. was at the movies and had 2 absent seizures and rb1 then had 2 grand mal seizures when she was at home. Pt. is A \T\ O x 4. Does not take any medications at this time. History of hydrocephaly and seizures. Allergic to medical tape, PCN, and Lamictal. BP 110/72, P 118-120, BS 109. Transition of care: patient was not received from another setting of care. Onset of symptoms was February 09, 2018. Risk Assessment: Do you want to hurt yourself or someone else? Patient reports no desire to harm self or others. Initial Sepsis Screen: Does the patient meet any 2 criteria? No. Patient's initial sepsis screen is negative. Does the patient have a suspected source of infection? No. Patient's initial sepsis screen is negative. Care prior to arrival: None. 17:58 Method Of Arrival: EMS: [facility] 17:58 Acuity: ELI 3 rb1 Triage Assessment: 17:58 General: Appears in no apparent distress. comfortable, obese, Behavior is calm, rb1 cooperative, appropriate for age. Pain: Complains of pain in head Pain currently is 7 out of 10 on a pain scale. Neuro: Level of Consciousness is awake, alert, obeys commands, Oriented to person, place, time, situation, Tip Scourer are equal bilaterally Moves all extremities. Speech is normal, Facial symmetry appears normal, Pupils are PERRLA. Cardiovascular: Capillary refill < 3 seconds is brisk in bilateral fingers. Respiratory: Airway is patent Respiratory effort is even, unlabored, Respiratory pattern is regular, symmetrical. GI: No signs and/or symptoms were reported involving the gastrointestinal system. : No signs and/or symptoms were reported regarding the genitourinary system. Derm: Skin is pink, warm \T\ dry. Musculoskeletal: Range of motion: intact in all extremities. 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 - Ebola Screening: : Patient negative for fever greater than or equal to 101.5 degrees Fahrenheit, and additional compatible Ebola Virus Disease symptoms. - Social history:: Smoking status: Patient uses tobacco products, denies chronic smoking, but will smoke occasionally. Screenin:58 Abuse screen: Denies threats or abuse. Nutritional screening: No deficits noted. rb1 Tuberculosis screening: No symptoms or risk factors identified. Fall Risk No fall in past 12 months (0 pts). Secondary diagnosis (15 points) seizures, No IV (0 pts). Ambulatory Aid- None/Bed Rest/Nurse Assist (0 pts). Gait- Normal/Bed Rest/Wheelchair (0 pts) Mental Status- Oriented to own ability (0 pts). Total Zamora Fall Scale indicates No Risk (0-24 pts). Assessment: 17:58 General: See triage assessment. rb1 18:55 Reassessment: Patient appears in no apparent distress at this time. Patient and/or rb1 family updated on plan of care and expected duration. Pain level reassessed. Patient is alert, oriented x 3, equal unlabored respirations, skin warm/dry/pink. Family at bedside. Vital Signs: 17:58 BP 110 / 84; Pulse 104; Resp 20; Temp 98.5(O); Pulse Ox 99% on R/A; Weight 81.74 kg rb1 (R); Height 5 ft. 4 in. (162.56 cm) (R); Pain 7/10; 18:55 BP 122 / 88; Pulse 113; Resp 19; Pulse Ox 97% on R/A; rb1 17:58 Body Mass Index 30.93 (81.74 kg, 162.56 cm) rb1 Carmel Coma Score: 17:58 Eye Response: spontaneous(4). Verbal Response: oriented(5). Motor Response: obeys rb1 commands(6). Total: 15. ED Course: 17:58 Arm band placed on right wrist. rb1 17:58 Patient has correct armband on for positive identification. Bed in low position. Call rb1 light in reach. Side rails up X2. Pulse ox on. NIBP on. 17:58 Seizure precautions initiated. rb1 18:15 Patient arrived in ED. mr 18:15 None, None is Private Physician. mr 18:15 Karen Nieves, RN is Primary Nurse. rb1 18:19 Triage completed. rb1 18:22 Zabrina Soto FNP-C [facility]. snw 18:22 Francisco Becerra MD is Attending Physician. snw 19:05 No provider procedures requiring assistance completed. Patient did not have IV access rb1 during this emergency room visit. Administered Medications: 19:09 Drug: Keppra 500 mg Route: PO; rb1 19:09 Follow up: Response: Medication administered at discharge. rb1 19:09 Drug: Zofran 4 mg Route: PO; rb1 19:09 Follow up: Response: Medication administered at discharge. rb1 Outcome: 18:52 Discharge ordered by . snw 19:05 Discharged to home via wheelchair, with family. rb1 19:05 Condition: stable 19:05 Discharge instructions given to patient, Instructed on discharge instructions, follow up and referral plans. medication usage, Demonstrated understanding of instructions, follow-up care, medications, Prescriptions given X 2. 19:05 Patient left the ED. rb1 Signatures: Zabrina Soto FNP-C FNP-Zbignieww NathanKadi Karen Nieves, RN RN rb1 Corrections: (The following items were deleted from the chart) 19:14 19:13 Patient left the ED. rb1 rb1
[2018-02-09] MEDS ORDERED: ONDANSETRON 4 MG (ODT) TAB ONE (18:59)
[2018-02-09] MEDS ORDERED: levETIRAcetam 500 MG TAB ONE (18:59)
== END 2018-02-09 19:13 | disposition home or self-care (01) ==
LOC: ER 17:58
DX: G40.909 Epilepsy, unspecified, not intractable, without status epilepticus (principal); Z88.0 Allergy status to penicillin; Z88.8 Allergy status to other drugs, medicaments and biological substances; Z91.048 Other nonmedicinal substance allergy status
CPT/HCPCS: 99284

== ENCOUNTER 2018-02-17 03:07 | Emergency (ER) | payer SELFPAY ==
--- OUTSIDE RECORDS SUMMARY | 2018-02-17 03:09 | XMS REPORT | Continuity of Care Document ---
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, [facility], type II [facility] Hydrocephalus Resolved Problem 07/19/2016 [facility] Depression Resolved Problem 07/19/2016 [facility] PTSD (<span Resolved Problem 07/19/2016 ID="[id number] [facility],M ">Confirmed</spa H [place] n>) [facility] PTSD (<span Resolved Problem 07/19/2016 ID="[id number] [facility],M ">Confirmed</spa H [place] n>) [facility] HEADACHE Active [facility] Medications Medication Details Route Status Patient Ordering Order Source Instructions Provider Date Ketorolac 60 mg, Route: No Longer IM, Drug form: Active 2015 [facility] INJ, ONCE, Dosing Weight 84.545, kg, Priority: STAT, Start date: 07/15/16 23:21:00 JUDGE, Stop date: 07/15/16 23:21:00 JUDGE Valium 5 mg, Route: No Longer IM, Drug form: Active 2015 [facility] INJ, ONCE, Dosing Weight 84.545, kg, Priority: STAT, Start date: 07/15/16 23:21:00 JUDGE, Stop date: 07/15/16 23:21:00 JUDGE Ativan 1 mg, 0.5 mL, No Longer [facility] Route: IVP, Active [facility] Medical Drug form: INJ, Center ONCE, Dosing Weight 84.545, kg, PRN Anxiety, Start date: 07/13/16 23:15:00 CSTNotes: (Same as: Ativan) nystatin 1 appl, Route: No Longer [facility] topical 100,000 TOP, TID, Drug Active 2015 Medical units/g cream form: CRM, Center Start date: 07/13/16 17:00:00 JUDGE, Duration: 30 day, Stop date: 08/12/16 13:00:00 CSTNotes: (Same as:Mycostatin, Nilstat) For external use only. Nystatin [id number] 1 appl, Route: Inactive [facility] UNT/ML / TOP, TID, Drug 2015 Medical Triamcinolone form: [facility], [place] Acetonide 1 Start date: MG/ML Topical 07/13/16 Cream 9:00:00 JUDGE, Duration: 30 day, Stop date: 08/11/16 17:00:00 JUDGE Sodium Chloride 250 mL, 250 Inactive [facility] 0.154 MEQ/ML ml/hr, Infuse 2015 Medical Injectable Over: 1 hr, [place] Solution Route: IV, 250, Drug form: INJ, ONCE, Priority: STAT, Dosing Weight 84.545 kg, Start date: 07/12/16 16:18:00 JUDGE, Duration: 1 doses or times, Stop date: 07/12/16 16:18:00 JUDGE Promethazine 12.5 mg, 0.5 No Longer [facility] mL, Route: Active 2015 Medical IVPB, Drug Center form: INJ, Q4H, Dosing Weight 84.545, kg, PRN as needed for nausea/vomiting , Start date: 07/12/16 16:17:00 JUDGE, Duration: 30 day, Stop date: 08/11/16 16:16:00 CSTNotes: Do not give IV push. (Same as: Phenergan) Docusate 100 mg, 1 cap, No Longer [facility] Route: PO, Drug Active 2015 Medical form: CAP, Center Q12H, Dosing Weight 84.545, kg, Start date: 07/12/16 9:00:00 JUDGE, Duration: 30 day, Stop date: 08/10/16 21:00:00 CSTNotes: (Same as: Colace) (Do Not Crush) sennosides, FPC 8.6 mg, 1 tab, No Longer [place] Route: PO, Drug Active 2015 Medical Form: TAB, Center Dosing Weight 84.545, kg, Q12H, Start date: 07/12/16 9:00:00 JUDGE, Duration: 30 day, Stop date: 08/10/16 21:00:00 CSTNotes: (Same as: Senokot) Saline Flush 10 ml, Route: No Longer [place] 0.9% IVP, Drug Form: Active 2015 Medical INJ, Dosing Center Weight 84.545, kg, Q12H, Start date: 07/12/16 9:00:00 JUDGE, Duration: 30 day, Stop date: 08/10/16 21:00:00 CSTNotes: (Same as: BD Posiflush) tramadol 50 mg=1 tab, Active [place] hydrochloride PO, Q4H, PRN 2015 Medical 50 MG Oral for pain, X 10 Center Tablet [Ultram] day, # 60 tab, 0 Refill(s) tramadol 50 mg, 1 tab, No Longer [place] hydrochloride Route: PO, Drug Active 2015 Medical 50 MG Oral form: TAB, Q4H, Center Tablet [Ultram] Dosing Weight 84.545, kg, PRN Pain Score 1-3, Start date: 07/12/16 7:14:00 JUDGE, Duration: 30 day, Stop date: 08/11/16 7:13:00 CSTNotes: Not to exceed 400mg/day. (Same As: Ultram) tramadol 50 mg=1 tab, Inactive [place] hydrochloride PO, Q4H, PRN 2015 Medical 50 MG Oral for pain, X 10 Center Tablet [Ultram] day, # 60 tab, 0 Refill(s) senna 8.6 mg 8.6 mg=1 tab, Active [place] oral tablet PO, Q12H, X 14 2015 Medical day, # 28 tab, Center 0 Refill(s) Docusate Sodium 100 mg=1 cap, Active [place] 100 MG Oral PO, Q12H, # 28 2015 Medical Capsule cap, 0 Center Refill(s) Regular 5 unit, 0.05 No Longer [place] Insulin, Human mL, Route: Active 2015 Medical 100 UNT/ML SUB-Q, Drug Center Injectable form: SOLN, Solution PRN, Dosing Weight 84.545, kg, PRN Abnormal Lab Result, Start date: 07/11/16 22:18:00 JUDGE, Duration: 30 day, Stop date: 08/10/16 22:17:00 CSTNotes: (Same as: Humulin R) Roll in palms of hands gently; Do not shake vigorously. "single patient use only" (Restricted to patients requiring a dose > 60 units) WASTE: F/P - Black; E - Municipal Trash Bin Stable for 28 days at room temperature Expires in days from D ate Dextrose 50% 25 gm, 50 mL, No Longer [facility] Syringe Route: IVP, Active 2015 Medical Drug Form: INJ, Center Dosing Weight 84.545, kg, PRN, PRN Abnormal Lab Result, Start date: 07/11/16 22:18:00 JUDGE, Duration: 30 day, Stop date: 08/10/16 22:17:00 JUDGE Bisacodyl 10 mg, 1 supp, No Longer [facility] Route: DC, Drug Active 2015 Medical form: SUPP, Center Daily, Dosing Weight 84.545, kg, PRN Constipation, Start date: 07/11/16 22:18:00 JUDGE, Duration: 30 day, Stop date: 08/10/16 22:17:00 CSTNotes: (Same As: Dulcolax, [place]-Lax) Saline Flush 10 ml, Route: No Longer [facility] 0.9% IVP, Drug Form: Active 2015 Medical INJ, Dosing Center Weight 84.545, kg, PRN, PRN Line Flush, Start date: 07/11/16 22:18:00 JUDGE, Duration: 30 day, Stop date: 08/10/16 22:17:00 CSTNotes: (Same as: BD Posiflush) Ondansetron 4 mg, 2 mL, No Longer [facility] Route: IVP, Active 2015 Medical Drug form: INJ, Center Q8H, Dosing Weight 84.545, kg, PRN Nausea & Vomiting, Start date: 07/11/16 22:18:00 JUDGE, Duration: 30 day, Stop date: 08/10/16 22:17:00 CSTNotes: (Same as: Leeanne) MEDICATION WASTE Product Size: 4 mg Product Wasted: _0__ mg Acetaminophen 1 tab, Route: No Longer [place] 325 MG / PO, Drug Form: Active 2016 Medical Hydrocodone TAB, Dosing Center Bitartrate 10 Weight 84.545, MG Oral Tablet kg, Q4H, PRN Pain Score 4-6, Start date: 07/11/16 22:18:00 JUDGE, Duration: 30 day, Stop date: 08/10/16 22:17:00 CSTNotes: Do not exceed 4gm/day of acetaminophen. (Same as: [place] 325/10) Acetaminophen 1 tab, Route: No Longer [place] 325 MG / PO, Drug Form: Active 2016 Medical Hydrocodone TAB, Dosing Center Bitartrate 5 MG Weight 84.545, Oral Tablet kg, Q4H, PRN Pain Score 1-3, Start date: 07/11/16 22:18:00 JUDGE, Duration: 30 day, Stop date: 08/10/16 22:17:00 CSTNotes: (Same as: [place] 325/5) Do not exceed 4gm/day of acetaminophen. Sodium Chloride 1,000 mL, Rate: No Longer [place] 0.154 MEQ/ML 75 ml/hr, Active 2015 Medical Injectable Infuse over: Center Solution 13.3 hr, Route: IV, Dosing Weight 84.545 kg, Total Volume: 1,000, Start date: 07/11/16 22:18:00 JUDGE, Duration: 30 day, Stop date: 08/10/16 22:17:00 JUDGE Reglan 10 mg, 2 mL, Inactive [place] Route: IVP, 2015 Medical Drug form: INJ, Center ONCE, Dosing Weight 84.545, kg, Priority: STAT, Start date: 07/11/16 20:59:00 JUDGE, Stop date: 07/11/16 20:59:00 CSTNotes: (Same as: Reglan) Sodium Chloride 1,000 mL, 1,000 Inactive [place] 0.154 MEQ/ML ml/hr, Infuse 2016 Medical Injectable Over: 1 hr, Center Solution Route: IV, 1,000, Drug form: INJ, ONCE, Priority: STAT, Dosing Weight 84.545 kg, Start date: 07/11/16 20:59:00 JUDGE, Duration: 1 doses or times, Stop date: 07/11/16 20:59:00 JUDGE Acetaminophen 1,000 mg, 2 Inactive [place] tab, Route: PO, 2016 Medical Drug form: TAB, Center ONCE, Dosing Weight 84.545, kg, Priority: STAT, Start date: 07/11/16 20:59:00 JUDGE, Stop date: 07/11/16 20:59:00 CSTNotes: Max acetaminophen 4000 mg/day (4 gm/day). (Same as: Tylenol Extra Strength) Allergies, Adverse Reactions, Alerts Substance Category Reaction Severity Reaction Status Date Comments Source type Reported amoxicillin Assertion Drug Active MH allergy [facility] LaMICtal Assertion Drug Active MH allergy [facility] Medical Tape Assertion Drug Active MH allergy [place] penicillins Assertion Drug Active MH allergy [facility] Immunizations Immunization Date Given Site Status Last Updated Comments Source Results Order Name Results Value Reference Date Interpretation Comments Source Range Brain Brain shunt Clinical Indication:21 years Female with Pain and swelling 07/15 - shunt series DX /2015 - [facility] series DX Comparison: Shunt study 07/12/2016 Read by: Scot Saenz MD Dictated Date/time: 07/15/16 23:38 FINDINGS: Electronically Signed by: Scot Saenz MD 07/15/16 23:41 FINAL REPORT Radiographs of the right INFORMATICA DEVELOPER shunt obtained from the skull to the abdomen. Unchanged appearance of the INFORMATICA DEVELOPER shunt, which goes from the right lateral ventricle along the right neck, traverses the right upper chest to the left lower chest, and terminates in the left upper quadrant. No discontinuity of the INFORMATICA DEVELOPER shunt. 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 IMPRESSION: Unchanged appearance of right INFORMATICA DEVELOPER shunt. No discontinuity of the shunt catheter or other significant radiographic abnormality. Brain wo Brain wo Exam: MRI brain without and with contrast. 07/13 - [facility] contrast contrast MRI /2015 - Medical MRI [...] MRI brain without and with contrast. 07/13 - [facility] contrast contrast MRI /2015 - Medical MRI [...] CSF 34 mg/dL 15 - 45 07/13 [facility] FLUIDS [facility] BODY Color CSF Colorless Colorless 07/13 [place] FLUIDS [facility] (07/13/16 7:35 AM) Center BODY Clarity CSF Clear Clear 07/13 [facility] FLUIDS [facility] (07/13/16 7:35 AM) Center BODY Tube Num CSF xxxxxxx 07/13 [place] FLUIDS [facility] (07/13/16 7:35 AM) Center BODY RBC CSF 0 /mm3 0 - 03 07/13 [facility] FLUIDS [facility] BODY Supernat CSF Colorless Colorless 07/13 [place] FLUIDS [facility] (07/13/16 7:35 AM) Center BODY WBC CSF 1 /mm3 0 - 53 07/13 [facility] FLUIDS [facility] BODY Glucose CSF 56 mg/dL 45 - 80 07/13 [facility] FLUIDS /2015 [facility] IMMUNOLOGY PE Interp CSF 07/13 [facility] protein [facility] electropho [place] resis did not reveal evidence of an oligoclona l process in the CONTENT SPECIALIST. The CSF IgG index is within the reference range indicating that there is no elevation in intracereb ral IgG synthesis. There is also no evidence of increased permeabili ty of the blood brain barrier based on the CSF/serum albumin ratio.The electronic medical record has been reviewed for relevant history.I have personally reviewed the test results and concur with the resident's interpreta tion.CPT: 90136-[id number] IMMUNOLOGY Description The gel 07/13 [facility] CSF demonstrat [facility] appropriat e resolution of the main protein bands. The gamma region shows continuous distributi on of proteins both in the CSF and in the serum. No oligoclona l bands are detected. IMMUNOLOGY IgG (CPE) 1010 mg/dL 694 - 1618 07/13 [facility] IMMUNOLOGY Alb (CPE) 4100.0 3400.0 - 07/13 [facility] mg/dL 5000.0 [facility] IMMUNOLOGY IgG Lvl CSF 1.7 mg/dL 2.0 - 4.0 07/13 [facility] IMMUNOLOGY Alb CSF 14.7 mg/dL 14.0 - 07/13 [facility] (CPE) 25.0 [facility] IMMUNOLOGY IgG Index 0.5 mg/dL 0.3 - 0.7 07/13 [facility] CHEM PANEL eGFR 128 07/13 Result Comment: The eGFR is calculated using the CKD-EPI formula. In most young, healthy individuals the eGFR will be >90 mL/ min/1.73m2. The eGFR declines with age. An eGFR of 60-89 may be normal in [facility] mL/min/1.7 some populations, particularly the elderly, for whom the CKD-EPI formula has not been extensively validated. Use of the eGFR is not recommended in the following populations: [address] Individuals with unstable creatinine concentrations, including [...] Lvl 8.8 mg/dL 8.5 - 10.5 07/13 [facility] CHEM PANEL CO2 23 meq/L 24 - 32 07/13 [facility] CHEM PANEL Chloride Lvl 108 meq/L 95 - 109 07/13 [facility] CHEM PANEL Creatinine 0.61 mg/dL 0.50 - 07/13 [facility] Lvl 1.40 [facility] CHEM PANEL Sodium Lvl 142 meq/L 135 - 145 07/13 [facility] CHEM PANEL BUN 7 mg/dL 7 - 22 07/13 [facility] CHEM PANEL Potassium 3.9 meq/L 3.5 - 5.1 07/13 [facility] Lvl /2015 [facility] CHEM PANEL Glucose Lvl 88 mg/dL 70 - 99 07/13 [facility] CHEM PANEL AGAP 14.9 meq/L 10.0 - 07/13 20.0 [facility] HEMATOLOGY Lymphocytes 37.9 % 20.0 - 07/13 40.0 [facility] HEMATOLOGY Segs 52.1 % 45.0 - 07/13 75.0 [facility] HEMATOLOGY Monocytes 7.3 % 2.0 - 12.0 07/13 [facility] HEMATOLOGY Basophils 0.8 % 0.0 - 1.0 07/13 [facility] HEMATOLOGY Eosinophils 1.9 % 0.0 - 4.0 07/13 [facility] HEMATOLOGY Segs-Bands # 3.8 K/CMM 1.5 - 8.1 07/13 [facility] HEMATOLOGY Eosinophils 0.1 K/CMM 0.0 - 0.5 07/13 [facility] HEMATOLOGY Monocytes # 0.5 K/CMM 0.0 - 0.8 07/13 [facility] HEMATOLOGY Lymphocytes 2.7 K/CMM 1.0 - 5.5 07/13 [facility] HEMATOLOGY Basophils # 0.1 K/CMM 0.0 - 0.2 07/13 [facility] HEMATOLOGY RBC 4.53 M/CMM 4.20 - 07/13 5.40 [facility] HEMATOLOGY WBC 7.2 K/CMM 3.7 - 10.4 07/13 [facility] HEMATOLOGY Hct 38.5 % 36.0 - 07/13 48.0 [facility] HEMATOLOGY Hgb 13.0 g/dL 12.0 - 07/13 16.0 [facility] HEMATOLOGY MCHC 33.9 g/dL 32.0 - 07/13 36.0 [facility] HEMATOLOGY MCH 28.8 pg 27.0 - 07/13 31.0 [facility] HEMATOLOGY RDW 14.0 % 11.5 - 07/13 14. [facility] HEMATOLOGY MPV 9.2 fL 7.4 - 10.4 07/13 [facility] HEMATOLOGY Platelet 283 K/CMM 133 - 450 07/13 [facility] HEMATOLOGY MCV 84.9 fL 80.0 - 07/13 [place] 98.0 /2015 [facility] HEMATOLOGY INR 0.96 0.85 - 07/13 [place] 1.17 /2015 [facility] HEMATOLOGY PTT 31.9 s 22.9 - 07/13 [place] 35.8 /2015 [facility] HEMATOLOGY PT 13.0 s 12.0 - 07/13 [facility] 14.7 [facility] Brain wo Brain wo EXAM: CT HEAD WITHOUT CONTRAST 07/13 [facility] contrast contrast CT /2015 - [facility] CT Center DATE: 07/13/2016 Read by: Marcos Jo MD Dictated Date/time: 07/13/16 06:58 Electronically Signed by: Marcos Jo MD 07/13/16 07:01 FINAL REPORT INDICATION: 21 years old Female patient with history of INFORMATICA DEVELOPER shunt placement , now complaining of headache. TECHNIQUE: Multiple axial images were obtained through the head from vertex to the skull base. Axial bone algorithm reconstruction images are provided. COMPARISON: Prior CT Scan of the head dated 07/12/2016 147 AM JUDGE DISCUSSION: Again identified is a right parietal approach INFORMATICA DEVELOPER shunt catheter with distal tip lies within [...] adverse change. 2. Stable right parietal approach INFORMATICA DEVELOPER shunt catheter with adequately decompressed ventricular system. 3. 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 CARDIAC Troponin-T null 0.000 - 07/12 [facility] ENZYMES 0.100 [facility] CARDIAC Total CK 33 unit/L 12 - 191 07/12 [facility] ENZYMES /2015 [facility] MYOGLOBIN Myoglobin 35 ng/mL 25 - 72 07/12 [place] /[address] [place] [address] Chest Chest 1view EXAM: XR CHEST 1 VIEW 07/12 - [facility] 1view DX DX /2015 [facility] DATE: 07/12/2016 4:10 PM JUDGE Read by: Albert Vail MD Dictated Date/time: 07/12/16 16:40 Electronically Signed by: Albert Vail 07/12/16 16:42 FINAL REPORT INDICATION: Chest pain COMPARISON: Yesterday TECHNIQUE: AP chest FINDINGS: Abandoned and calcified discontinuous INFORMATICA DEVELOPER shunt tubing is redemonstrated over the right lower neck and anterior chest, coursing over the upper abdomen. Additional INFORMATICA DEVELOPER shunt tubing is seen over t he right neck, extending over the midline chest and left upper quadrant; distal tubing is not well seen. Stable cardiomediastinal silhouette. No new pulmonary or pleural based abnormalities. IMPRESSION: No significant change. Brain Brain shunt EXAM: XR SHUNT SERIES 07/12 - [place] shunt series - Medical series DX This report was dictated by a Iron Pellet Tester/Fellow. I have personally reviewed the images as Center well as the Resident's interpretation and agree with the findings. DATE: 07/12/2016 7:03 AM JUDGE Read by: Siva Lanza MD Resident: Siva [...] the L3 level. IMPRESSION: 1. Right programmable INFORMATICA DEVELOPER shunt with unremarkable appearance. 2. 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 Skull 1 Skull 1 view EXAM: XR SKULL 1 VIEW 07/12 - [place] view DX DX /2015 - Medical This report was dictated by a Iron Pellet Tester/Fellow. I have personally reviewed the images as Center well as the Resident's interpretation and agree with the findings. DATE: 07/12/2016 7:03 AM JUDGE Read by: Siva Lanza MD Resident: Siva [...] place DRUG U Phencyc Negative Negative 07/12 SCREEN [facility]* [place] (07/12/16 12:39 AM) DRUG U Opiate Scr Negative Negative 07/12 [facility] (07/12/16 12:39 AM) DRUG U Propoxyph Negative Negative 07/12 [facility] (07/12/16 12:39 AM) DRUG U Methadone Negative Negative 07/12 [facility] (07/12/16 12:39 AM) DRUG UDS Note See Note 07/12 [facility] (07/12/16 12:39 AM) DRUG U Benzodia Negative Negative 07/12 [facility] (07/12/16 12:39 AM) DRUG U Amph Scr Negative Negative 07/12 [facility] (07/12/16 12:39 AM) DRUG U Cannab Scr Negative Negative 07/12 [facility] (07/12/16 12:39 AM) DRUG U Cocaine Negative Negative 07/12 [facility] (07/12/16 12:39 AM) DRUG U Tori Scr Negative Negative 07/12 [facility]* [place] (07/12/16 12:39 AM) HEMATOLOGY Platelet 306 K/CMM 133 - 450 07/12 [facility] HEMATOLOGY RDW 13.5 % 11.5 - 07/12 [place] 14. [facility] HEMATOLOGY MPV 9.3 fL 7.4 - 10.4 07/12 [facility] HEMATOLOGY RBC 4.46 M/CMM 4.20 - 07/12 [place] 5.40 /2015 [facility] HEMATOLOGY Hgb 12.6 g/dL 12.0 - 07/12 [place] 16.0 /2015 [facility] HEMATOLOGY Hct 37.4 % 36.0 - 07/12 [place] 48.0 /2015 [facility] HEMATOLOGY MCV 83.9 fL 80.0 - 07/12 [place] 98.0 /2015 [facility] HEMATOLOGY WBC 9.4 K/CMM 3.7 - 10.4 07/12 /2015 [facility] HEMATOLOGY MCH 28.3 pg 27.0 - 07/12 [place] 31.0 /2015 [facility] HEMATOLOGY MCHC 33.8 g/dL 32.0 - 07/12 [facility] 36.0 [facility] HEMATOLOGY PTT 33.7 s 22.9 - 07/12 [place] 35.8 /2015 [facility] HEMATOLOGY INR 1.02 0.85 - 07/12 [place] 1.17 [facility] HEMATOLOGY PT 13.6 s 12.0 - 07/12 [place] 14.7 /2015 [facility] HEMATOLOGY Segs-Bands # 5.5 K/CMM 1.5 - 8.1 07/12 [facility] HEMATOLOGY Monocytes # 0.6 K/CMM 0.0 - 0.8 07/12 [facility] HEMATOLOGY Lymphocytes 3.0 K/CMM 1.0 - 5.5 07/12 [place] /2015 [facility] HEMATOLOGY Basophils # 0.1 K/CMM 0.0 - 0.2 07/12 [facility] HEMATOLOGY Eosinophils 0.1 K/CMM 0.0 - 0.5 07/12 [place] /2016 [facility] HEMATOLOGY Basophils 0.9 % 0.0 - 1.0 07/12 /2015 [facility] HEMATOLOGY Segs 58.7 % 45.0 - 07/12 [place] 75.0 [facility] HEMATOLOGY Lymphocytes 32.5 % 20.0 - 07/12 [place] 40.0 /2016 [facility] HEMATOLOGY Monocytes 6.5 % 2.0 - 12.0 07/12 [facility] HEMATOLOGY Eosinophils 1.4 % 0.0 - 4.0 07/12 [facility] URINE AND UA WBC 1 /HPF 0 - 5 07/12 [facility] URINE AND Micro? Not Indicated 07/12 [facility] *NA* [place] (07/12/16 12:39 AM) URINE AND UA <=1.0 0.1 - 1.0 07/12 [facility] Urobilinogen mg/dL [facility] URINE AND UA Protein Negative Negative 07/12 [facility] mg/dL mg/dL [facility] URINE AND UA Glucose Negative Negative 07/12 [facility] mg/dL mg/dL [facility] URINE AND UA Turbidity Clear Clear 07/12 [facility] (07/12/16 12:39 AM) [place] URINE AND UA Spec Grav 1.011 <=1.030 07/12 [facility] URINE AND UA pH 6.5 5.0 - 8.0 07/12 [facility] URINE AND UA Color Yellow Yellow 07/12 [facility] *NA* [place] (07/12/16 12:39 AM) URINE AND UA Sq Epi Moderate Few /LPF 07/12 [facility] STOOL /LPF /2015 [facility] URINE AND UA Leuk Est Negative Negative 07/12 [facility] (07/12/16 12:39 AM) [place] URINE AND UA Ketones Negative Negative 07/12 [facility] mg/dL mg/dL [facility] URINE AND UA Bili Negative Negative 07/12 [facility] *NA* [place] (07/12/16 12:39 AM) URINE AND UA Blood Negative Negative 07/12 [facility] (07/12/16 12:39 AM) [place] URINE AND UA Nitrite Negative Negative 07/12 [facility] (07/12/16 12:39 AM) [place] URINE CHEM U Preg Negative Negative 07/12 [facility] (07/12/16 12:39 AM) Center BLOOD BANK Antibody Negative 07/12 [facility] RESULTS Scrn [facility] (07/11/16 11:50 PM) [place] BLOOD BANK ABO/Rh A POS 07/12 [facility] RESULTS [facility] CHEM PANEL Glucose Lvl 93 mg/dL 70 - 99 07/12 [facility] CHEM PANEL AGAP 15.5 meq/L 10.0 - 07/12 [place] 20.0 [facility] CHEM PANEL eGFR 113 07/12 Result Comment: The eGFR is calculated using the CKD-EPI formula. In most young, healthy individuals the eGFR will be >90 mL/ min/1.73m2. The eGFR declines with age. An eGFR of 60-89 may be normal in [facility] mL/min/1. some populations, particularly the elderly, for whom the CKD-EPI formula has not been extensively validated. Use of the eGFR is not recommended in the following populations: [address] Individuals with unstable creatinine concentrations, including [...] Lvl 142 meq/L 135 - 145 07/[address] CHEM PANEL Creatinine 0.75 mg/dL 0.50 - 07/12 [facility] 1.40 [facility] CHEM PANEL BUN 6 mg/dL 7 - 22 07/[address] CHEM PANEL Calcium Lvl 8.8 mg/dL 8.5 - 10.5 07/[address] CHEM PANEL CO2 26 meq/L 24 - 32 07/[address] CHEM PANEL Potassium 3.5 meq/L 3.5 - 5.1 07/12 [facility] CHEM PANEL Chloride Lvl 104 meq/L 95 - 109 07/[address] Brain wo Brain wo EXAM: CT HEAD WITHOUT CONTRAST 07/12 - [facility] contrast contrast CT /2015 - [facility] DATE: 07/12/2016 147 AM JUDGE Read by: Marcos Jo MD Dictated Date/time: 07/12/16 10:11 Electronically Signed by: Marcos Jo MD 07/12/16 10:22 FINAL REPORT INDICATION: 21 years old Female patient with history of INFORMATICA DEVELOPER shunt placement , now complaining of headache. TECHNIQUE: Multiple axial images were obtained through the head from vertex to the skull base. Axial bone algorithm reconstruction images are provided. COMPARISON: Prior outside hospital CT Scan of the head dated 07/11/2016 DISCUSSION: Again identified is a right parietal approach INFORMATICA DEVELOPER shunt catheter with distal tip lies within [...] adverse change. 2. Stable right parietal approach INFORMATICA DEVELOPER shunt catheter with adequately decompressed ventricular system. 3. 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 Chest Chest 1view EXAM: XR CHEST 1 VIEW 07/11 [facility] 1view DX DX /2015 - [facility] This report was dictated by a Iron Pellet Tester/Fellow. I have personally reviewed the images as Center well as the Resident's interpretation and agree with the findings. DATE: 07/11/2016 2230 hours Read by: Macy Campos MD Resident: Macy Campos MD Dictated Date/time: 07/11/16 22:49 Electronically Signed by: Aron Pacheco 07/12/16 08:18 FINAL REPORT INDICATION: Mass COMPARISON: Chest radiograph 07/11/2016 TECHNIQUE: AP chest FINDINGS: Lines and tubes: Abandoned and calcified discontinuous INFORMATICA DEVELOPER shunt tubing is redemonstrated over the right lower neck and anterior chest, coursing over the upper abdomen. Additional INFORMATICA DEVELOPER shunt tubing is seen over the right [...] No acute cardiopulmonary abnormality. 2. Partially visualized INFORMATICA DEVELOPER shunt tubing as discussed above. Vital Signs Vital Sign Value Date Comments Source Respitory Rate 16 07/16/2016 [facility] Systolic (mm Hg) 134 07/16/2016 [facility] Diastolic (mm Hg) 63 07/16/2016 [facility] Temperature Oral (F) 98.2 F 07/16/2016 [facility] Temperature Oral (F) 98.6 F 07/16/2016 [facility] Respitory Rate 14 07/16/2016 [facility] Diastolic (mm Hg) 81 07/16/2016 [facility] Systolic (mm Hg) 131 07/16/2016 [facility] Weight 84.545 07/16/2016 [facility] Respitory Rate 20 07/16/2016 [facility] Heart Rate 110 07/16/2016 [facility] Temperature Oral (F) 98.8 F 07/16/2016 [facility] BMI Calculated 35.22 07/16/2016 [facility] Height 154.94 cm 07/16/2016 [facility] Systolic (mm Hg) 126 07/16/2016 [facility] Diastolic (mm Hg) 87 07/16/2016 [facility] Respitory Rate 12 07/14/2016 [facility] Temperature Oral (F) 97.9 F 07/14/2016 [facility] Systolic (mm Hg) 111 07/14/2016 [facility] Diastolic (mm Hg) 72 07/14/2016 [facility] Respitory Rate 16 07/14/2016 [facility] Systolic (mm Hg) 117 07/14/2016 [facility] Diastolic (mm Hg) 79 07/14/2016 [facility] Respitory Rate 13 07/14/2016 [facility] Systolic (mm Hg) 110 07/14/2016 [facility] Diastolic (mm Hg) 61 07/14/2016 [facility] Heart Rate 84 07/14/2016 [facility] Heart Rate 75 07/14/2016 [facility] Heart Rate 81 07/14/2016 [facility] Temperature Oral (F) 98.0 F 07/13/2016 [facility] Temperature Oral (F) 98.1 F 07/13/2016 [facility] Weight 84.545 07/12/2016 [facility] Weight 84.545 07/12/2016 [facility] Height 152.4 cm 07/12/2016 [facility] BMI Calculated 36.4 07/12/2016 [facility] Encounters Location Location Encounter Encounter Reason Attending ADM DC Status Source Details Type Number For Provider Date Date [facility] [id number] [place] 07/12 07/14 Patsy Decker /2015 [facility] Emergency [id number] [place] 07/16 07/16 MH Kenyon Chung /2015 [facility] Procedures Procedure Code Date Perfomer Comments Source Creation of INFORMATICA DEVELOPER [id number] [facility] shunt Creation of INFORMATICA DEVELOPER [id number] [facility]
[2018-02-17] MEDS ORDERED: LEVETIRACETAM 500 MG/5 ML VIAL IV ONE (03:29)
[2018-02-17] MEDS ORDERED: NA CHLORIDE 0.9% 100 ML IV ONE (03:29)
[2018-02-17 04:14] LABS: Absolute Lymphocytes (CBC) 2.8 K/uL (0.7-4.9); Absolute Monocytes 0.6 K/uL (0.1-1.3); Absolute Neutrophil 6.4 K/uL (1.8-8.0); Eosinophils % 1.5 % (0-4.4); Hematocrit 41.3 % (36.0-45.0); Lymphocytes % 27.8 % (15.3-44.8); MCH 28.9 pg (27.0-35.0); MCV 85.4 fL (80-100); Monocytes % 5.9 % (3.3-12.3); RBC Red Blood Cell Count 4.84 M/uL (3.86-4.86)
[2018-02-17 04:26] LABS: ALT/SGPT 18 U/L (12-78); AST/SGOT 16 U/L (15-37); Albumin 3.6 g/dL (3.4-5.0); Alkaline Phosphatase 81 U/L (45-117); Amylase Level 84 U/L (25-115); BUN Blood Urea Nitrogen 11 mg/dL (7-18); Bicarbonate 26 mmol/L (21-32); Bilirubin Direct < 0.1 mg/dL (0-0.2); Bilirubin Total 0.2 mg/dL (0.2-1.0); Glucose Level 95 mg/dL (74-106); Lipase 134 U/L (73-393); Potassium 3.6 mmol/L (3.5-5.1); Protein, Total 7.3 g/dL (6.4-8.2); Sodium Level 143 mmol/L (136-145)
--- NOTE | 2018-02-17 04:50 | ER ---
Nurse's Notes [facility] Name: Shanna Estrella Age: 22 yrs Sex: Female : 1995 Arrival Date: 02/17/2018 Time: 03:10 Bed 7 Private MD: Diagnosis: Epilepsy and recurrent seizures Presentation: 02/17 03:19 Presenting complaint: EMS states: pt with absent seizures. pt seen and placed on Keppra ak1 last month here in ER. pt family stated to EMS pt had 8 seizures since 214. Transition of care: patient was not received from another setting of care. Onset of symptoms is unknown. Risk Assessment: Do you want to hurt yourself or someone else? Patient reports no desire to harm self or others. Initial Sepsis Screen: Does the patient meet any 2 criteria? No. Patient's initial sepsis screen is negative. Does the patient have a suspected source of infection? No. Patient's initial sepsis screen is negative. Care prior to arrival: None. 03:19 Method Of Arrival: EMS: [facility] ak1 03:19 Acuity: ELI 3 ak1 Triage Assessment: 03:21 General: Appears in no apparent distress. Behavior is calm, cooperative. Pain: ak1 Complains of pain in body aches. EENT: No signs and/or symptoms were reported regarding the EENT system. Neuro: Level of Consciousness is awake, alert, obeys commands, lethargic, Oriented to person, place, time, situation, Medical Appointment Clerk are equal bilaterally Moves all extremities. Speech is slurred, Facial symmetry appears normal. Cardiovascular: No deficits noted. Respiratory: No deficits noted. GI: No signs and/or symptoms were reported involving the gastrointestinal system. : No signs and/or symptoms were reported regarding the genitourinary system. Derm: No signs and/or symptoms reported regarding the dermatologic system. Musculoskeletal: No signs and/or symptoms reported regarding the musculoskeletal system. 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 - Social history:: Smoking status: unknown. - Ebola Screening: : No symptoms or risks identified at this time. Screenin:24 Abuse screen: Denies threats or abuse. Denies injuries from another. Nutritional ak1 screening: No deficits noted. Tuberculosis screening: No symptoms or risk factors identified. Fall Risk None identified. Assessment: 03:50 Reassessment: Patient appears in no apparent distress at this time. No changes from ak1 previously documented assessment. see triage assessment. pt c/o pain at IV site. Vital Signs: 03:13 BP 123 / 92; Pulse 98; Resp 18; Temp 98.2(TE); Pulse Ox 100% on R/A; Weight 90.72 kg ak1 (R); Height 5 ft. 6 in. (167.64 cm) (R); Pain 0/10; 04:41 BP 109 / 79; Pulse 91; Resp 14; Pulse Ox 100% on R/A; ak1 03:13 Body Mass Index 32.28 (90.72 kg, 167.64 cm) ak1 ED Course: 03:10 Patient arrived in ED. ak1 03:13 Arm band placed on Patient placed in an exam room, on a stretcher, Patient notified of ak1 wait time. 03:20 Triage completed. ak1 03:24 Patient has correct armband on for positive identification. Bed in low position. Call ak1 light in reach. Side rails up X2. Seizure precautions initiated. personnel representative on. Pulse ox on. NIBP on. 03:24 No provider procedures requiring assistance completed. ak1 03:27 Fritz Reid MD is Attending Physician. tw4 03:28 Inserted saline lock: 22 gauge in right forearm, using aseptic technique. ea 03:58 Inserted saline lock: 22 gauge in left wrist, using aseptic technique. ,using aseptic ak1 technique. placed by Rosendo Conner [facility] Blood collected. 04:49 German Figueroa MD is Referral Physician. tw4 04:56 IV discontinued, intact, bleeding controlled, No redness/swelling at site. Pressure ak1 dressing applied. Administered Medications: 03:31 Drug: Keppra 1000 mg Route: IV; Rate: calculated rate; Site: right forearm; ak1 04:25 Follow up: IV Status: Completed infusion ak1 Outcome: 04:49 Discharge ordered by . tw4 04:56 Discharged to home ambulatory, with family. ak1 04:56 Condition: good 04:56 Discharge instructions given to patient, family, Instructed on discharge instructions, follow up and referral plans. no drinking with medication, no driving heavy equipment, medication usage, Demonstrated understanding of instructions, follow-up care, medications, Prescriptions given X 1. 05:00 Patient left the ED. ak1 Signatures: Breonna Lim RN RN ak1 Edwige Brown RN RN ea Wadley, Terrence, MD MD tw4 Corrections: (The following items were deleted from the chart) 03:59 03:58 Inserted saline lock: 22 gauge in left wrist, using aseptic technique. Blood ak1 collected. ak1
--- NOTE | 2018-02-17 04:50 | EDPHYS ---
Physician Documentation [facility] Name: Shanna Estrella Age: 22 yrs Sex: Female : 1995 Arrival Date: 02/17/2018 Time: 03:10 Bed 7 Private MD: Fritz Che HPI: 02/17 03:32 This 22 yrs old Female presents to ER via EMS with complaints of SEIZURE. tw4 03:32 The patient presents after having a single isolated seizure. Character of seizure(s): tw4 Loss of consciousness: the patient did not lose consciousness, Motor activity: blank stare, Incontinence: none, Apnea: it is not know whether or not the patient experienced apnea, Circulation: it is unknown whether or not the patient experienced a disturbance in pulse. Seizure onset: today. Context: occurred at home. Seizure Hx: Cause: unknown. Associated injury: The patient did not suffer any apparent associated injury. The patient has not experienced similar symptoms in the past. 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 - Social history:: Smoking status: unknown. - Ebola Screening: : No symptoms or risks identified at this time. ROS: 03:32 Constitutional: Negative for fever, chills, and weight loss, Cardiovascular: Negative tw4 for chest pain, palpitations, and edema, Respiratory: Negative for shortness of breath, cough, wheezing, and pleuritic chest pain, Abdomen/GI: Negative for abdominal pain, nausea, vomiting, diarrhea, and constipation, Back: Negative for injury and pain, Skin: Negative for injury, rash, and discoloration. Exam: 03:32 Constitutional: This is a well developed, well nourished patient who is awake, alert, tw4 and in no acute distress. Head/Face: Normocephalic, atraumatic. Chest/axilla: Normal chest wall appearance and motion. Nontender with no deformity. No lesions are appreciated. Cardiovascular: Regular rate and rhythm with a normal S1 and S2. No gallops, murmurs, or rubs. Normal PMI, no JVD. No pulse deficits. Respiratory: Lungs have equal breath sounds bilaterally, clear to auscultation and percussion. No rales, rhonchi or wheezes noted. No increased work of breathing, no retractions or nasal flaring. Abdomen/GI: Soft, non-tender, with normal bowel sounds. No distension or tympany. No guarding or rebound. No evidence of tenderness throughout. Back: No spinal tenderness. No costovertebral tenderness. Full range of motion. MS/ Extremity: Pulses equal, no cyanosis. Neurovascular intact. Full, normal range of motion. Vital Signs: 03:13 BP 123 / 92; Pulse 98; Resp 18; Temp 98.2(TE); Pulse Ox 100% on R/A; Weight 90.72 kg ak1 (R); Height 5 ft. 6 in. (167.64 cm) (R); Pain 0/10; 04:41 BP 109 / 79; Pulse 91; Resp 14; Pulse Ox 100% on R/A; ak1 03:13 Body Mass Index 32.28 (90.72 kg, 167.64 cm) ak1 MDM: 03:27 Patient medically screened. 02/17 03:38 Order name: Amylase, Serum; Complete Time: 04:45 02/17 04:45 Interpretation: Within normal limits: LUCIO 84. 02/17 03:38 Order name: Basic Metabolic Panel; Complete Time: 04:45 02/17 04:45 Interpretation: Normal except: CL 112. 02/17 03:38 Order name: CBC with Diff; Complete Time: 04:24 02/17 04:28 Interpretation: Within normal limits. 02/17 03:38 Order name: Creatinine for Radiology; Complete Time: 04:24 02/17 04:28 Interpretation: Within normal limits: CRE 0.70; GFR > 60. 02/17 03:38 Order name: Hepatic Function; Complete Time: 04:45 02/17 04:45 Interpretation: Normal except: GLOB 3.7; A/G 1.0. 4 02/17 03:38 Order name: Lipase; Complete Time: 04:45 02/17 04:45 Interpretation: Within normal limits: LIP 134. 02/17 03:38 Order name: Urine Microscopic Only 02/17 03:38 Order name: IV Saline Lock; Complete Time: 03:57 02/17 03:38 Order name: Labs collected and sent; Complete Time: 03:57 02/17 03:38 Order name: Urine Dipstick-Ancillary (obtain specimen); Complete Time: 04:41 02/17 04:54 Order name: Urine Dipstick--Ancillary (enter results) 2 02/17 04:54 Order name: Urine --Ancillary (enter results) 2 Administered Medications: 03:31 Drug: Keppra 1000 mg Route: IV; Rate: calculated rate; Site: right forearm; ak1 04:25 Follow up: IV Status: Completed infusion ak1 Disposition: 02/17/18 04:49 Discharged to Home. Impression: Epilepsy and recurrent seizures. - Condition is Stable. - Discharge Instructions: Seizure, Adult. - Prescriptions for Keppra 750 mg Oral Tablet - take 1 tablet by ORAL route every 12 hours; 20 tablet. - Medication Reconciliation Form, Thank You Letter, Antibiotic Education, Prescription Opioid Use form. - Follow up: German Figueroa MD; When: As needed; Reason: Recheck today's complaints, Re-evaluation by your physician. - Problem is an ongoing problem. - Symptoms have improved. Signatures: Dispatcher [employer] Breonna Frederick RN RN ak1 Fritz Reid MD MD tw4 Corrections: (The following items were deleted from the chart) 05:00 04:49 02/17/2018 04:49 Discharged to Home. Impression: Epilepsy and recurrent seizures. ak1 Condition is Stable. Forms are Medication Reconciliation Form, Thank You Letter, Antibiotic Education, Prescription Opioid Use. Follow up: German Figueroa; When: As needed; Reason: Recheck today's complaints, Re-evaluation by your physician. Problem is an ongoing problem. Symptoms have improved. tw4
[2018-02-17 05:20] LABS: Urine Blood NEGATIVE (NEG); Urine Glucose NEGATIVE (NEG); Urine Protein NEGATIVE (NEG)
[2018-02-17 05:21] LABS: Urine Bacteria <20 /HPF (<20); Urine Culture Reflex Order NOT NEEDED; Urine RBC <5 /HPF (NONE SEEN)
== END 2018-02-17 05:00 | disposition home or self-care (01) ==
LOC: ER 03:07
DX: G40.909 Epilepsy, unspecified, not intractable, without status epilepticus (principal); Z88.1 Allergy status to other antibiotic agents; Z88.0 Allergy status to penicillin; Z91.048 Other nonmedicinal substance allergy status
CPT/HCPCS: 36415; 80048; 80076; 81003; 81015; 81025; 82150; 83690; 85025; 96365; 99284; J1953

== ENCOUNTER 2018-02-21 10:14 | Emergency (ER) | payer SELFPAY ==
--- OUTSIDE RECORDS SUMMARY | 2018-02-21 10:18 | XMS REPORT | Continuity of Care Document ---
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, [facility], type II [facility] Hydrocephalus Resolved Problem 07/19/2016 [facility] Depression Resolved Problem 07/19/2016 [facility] PTSD (<span Resolved Problem 07/19/2016 ID="[id number] [facility],M ">Confirmed</spa H [place] n>) [facility] PTSD (<span Resolved Problem 07/19/2016 ID="[id number] [facility] ">Confirmed</spa H [place] n>) [facility] HEADACHE Active [facility] Medications Medication Details Route Status Patient Ordering Order Source Instructions Provider Date Ketorolac 60 mg, Route: No Longer IM, Drug form: Active 2015 [facility] INJ, ONCE, Dosing Weight 84.545, kg, Priority: STAT, Start date: 07/15/16 23:21:00 RESPIRATORY THERAPY AIDE, Stop date: 07/15/16 23:21:00 RESPIRATORY THERAPY AIDE Valium 5 mg, Route: No Longer IM, Drug form: Active 2015 [facility] INJ, ONCE, Dosing Weight 84.545, kg, Priority: STAT, Start date: 07/15/16 23:21:00 RESPIRATORY THERAPY AIDE, Stop date: 07/15/16 23:21:00 RESPIRATORY THERAPY AIDE Ativan 1 mg, 0.5 mL, No Longer [facility] Route: IVP, Active [facility] Medical Drug form: INJ, Center ONCE, Dosing Weight 84.545, kg, PRN Anxiety, Start date: 07/13/16 23:15:00 CSTNotes: (Same as: Ativan) nystatin 1 appl, Route: No Longer [facility] topical 100,000 TOP, TID, Drug Active 2015 Medical units/g cream form: CRM, Center Start date: 07/13/16 17:00:00 RESPIRATORY THERAPY AIDE, Duration: 30 day, Stop date: 08/12/16 13:00:00 CSTNotes: (Same as:Mycostatin, Nilstat) For external use only. Nystatin [id number] 1 appl, Route: Inactive [facility] UNT/ML / TOP, TID, Drug 2015 Medical Triamcinolone form: [facility] [place] Acetonide 1 Start date: MG/ML Topical 07/13/16 Cream 9:00:00 RESPIRATORY THERAPY AIDE, Duration: 30 day, Stop date: 08/11/16 17:00:00 RESPIRATORY THERAPY AIDE Sodium Chloride 250 mL, 250 Inactive [facility] 0.154 MEQ/ML ml/hr, Infuse 2015 Medical Injectable Over: 1 hr, [place] Solution Route: IV, 250, Drug form: INJ, ONCE, Priority: STAT, Dosing Weight 84.545 kg, Start date: 07/12/16 16:18:00 RESPIRATORY THERAPY AIDE, Duration: 1 doses or times, Stop date: 07/12/16 16:18:00 RESPIRATORY THERAPY AIDE Promethazine 12.5 mg, 0.5 No Longer [facility] mL, Route: Active 2015 Medical IVPB, Drug Center form: INJ, Q4H, Dosing Weight 84.545, kg, PRN as needed for nausea/vomiting , Start date: 07/12/16 16:17:00 RESPIRATORY THERAPY AIDE, Duration: 30 day, Stop date: 08/11/16 16:16:00 CSTNotes: Do not give IV push. (Same as: Phenergan) Docusate 100 mg, 1 cap, No Longer [facility] Route: PO, Drug Active 2015 Medical form: CAP, Center Q12H, Dosing Weight 84.545, kg, Start date: 07/12/16 9:00:00 RESPIRATORY THERAPY AIDE, Duration: 30 day, Stop date: 08/10/16 21:00:00 CSTNotes: (Same as: Colace) (Do Not Crush) sennosides, [facility] 8.6 mg, 1 tab, No Longer [place] Route: PO, Drug Active 2015 Medical Form: TAB, Center Dosing Weight 84.545, kg, Q12H, Start date: 07/12/16 9:00:00 RESPIRATORY THERAPY AIDE, Duration: 30 day, Stop date: 08/10/16 21:00:00 CSTNotes: (Same as: Senokot) Saline Flush 10 ml, Route: No Longer [place] 0.9% IVP, Drug Form: Active 2015 Medical INJ, Dosing Center Weight 84.545, kg, Q12H, Start date: 07/12/16 9:00:00 RESPIRATORY THERAPY AIDE, Duration: 30 day, Stop date: 08/10/16 21:00:00 [...] Pain Score 1-3, Start date: 07/12/16 7:14:00 RESPIRATORY THERAPY AIDE, Duration: 30 day, Stop date: 08/11/16 7:13:00 [...] Abnormal Lab Result, Start date: 07/11/16 22:18:00 RESPIRATORY THERAPY AIDE, Duration: 30 day, Stop date: 08/10/16 22:17:00 [...] 50% 25 gm, 50 mL, No Longer [facility] Syringe Route: IVP, Active 2015 Medical Drug Form: INJ, Center Dosing Weight 84.545, kg, PRN, PRN Abnormal Lab Result, Start date: 07/11/16 22:18:00 RESPIRATORY THERAPY AIDE, Duration: 30 day, Stop date: 08/10/16 22:17:00 RESPIRATORY THERAPY AIDE Bisacodyl 10 mg, 1 supp, No Longer [facility] Route: DE, Drug Active 2015 Medical form: SUPP, Center Daily, Dosing Weight 84.545, kg, PRN Constipation, Start date: 07/11/16 22:18:00 RESPIRATORY THERAPY AIDE, Duration: 30 day, Stop date: 08/10/16 22:17:00 CSTNotes: (Same As: Dulcolax, Bisco-Lax) Saline Flush 10 ml, Route: No Longer [facility] 0.9% IVP, Drug Form: Active 2015 Medical INJ, Dosing Center Weight 84.545, kg, PRN, PRN Line Flush, Start date: 07/11/16 22:18:00 RESPIRATORY THERAPY AIDE, Duration: 30 day, Stop date: 08/10/16 22:17:00 CSTNotes: (Same as: BD Posiflush) Ondansetron 4 mg, 2 mL, No Longer [facility] Route: IVP, Active 2015 Medical Drug form: INJ, Center Q8H, Dosing Weight 84.545, kg, PRN Nausea & Vomiting, Start date: 07/11/16 22:18:00 RESPIRATORY THERAPY AIDE, Duration: 30 day, Stop date: 08/10/16 22:17:00 CSTNotes: (Same as: Leeanne) MEDICATION WASTE Product Size: 4 mg Product Wasted: _0__ mg Acetaminophen 1 tab, Route: No Longer [place] 325 MG / PO, Drug Form: Active 2016 Medical Hydrocodone TAB, Dosing Center Bitartrate 10 Weight 84.545, MG Oral Tablet kg, Q4H, PRN Pain Score 4-6, Start date: 07/11/16 22:18:00 RESPIRATORY THERAPY AIDE, Duration: 30 day, Stop date: 08/10/16 22:17:00 CSTNotes: Do not exceed 4gm/day of acetaminophen. (Same as: [place] 325/10) Acetaminophen 1 tab, Route: No Longer [place] 325 MG / PO, Drug Form: Active 2016 Medical Hydrocodone TAB, Dosing Center Bitartrate 5 MG Weight 84.545, Oral Tablet kg, Q4H, PRN Pain Score 1-3, Start date: 07/11/16 22:18:00 RESPIRATORY THERAPY AIDE, Duration: 30 day, Stop date: 08/10/16 22:17:00 CSTNotes: (Same as: [place] 325/5) Do not exceed 4gm/day of acetaminophen. Sodium Chloride 1,000 mL, Rate: No Longer [place] 0.154 MEQ/ML 75 ml/hr, Active 2015 Medical Injectable Infuse over: Center Solution 13.3 hr, Route: IV, Dosing Weight 84.545 kg, Total Volume: 1,000, Start date: 07/11/16 22:18:00 RESPIRATORY THERAPY AIDE, Duration: 30 day, Stop date: 08/10/16 22:17:00 RESPIRATORY THERAPY AIDE Reglan 10 mg, 2 mL, Inactive [place] Route: IVP, 2015 Medical Drug form: INJ, Center ONCE, Dosing Weight 84.545, kg, Priority: STAT, Start date: 07/11/16 20:59:00 RESPIRATORY THERAPY AIDE, Stop date: 07/11/16 20:59:00 CSTNotes: (Same as: Reglan) Sodium Chloride 1,000 mL, 1,000 Inactive [place] 0.154 MEQ/ML ml/hr, Infuse 2016 Medical Injectable Over: 1 hr, Center Solution Route: IV, 1,000, Drug form: INJ, ONCE, Priority: STAT, Dosing Weight 84.545 kg, Start date: 07/11/16 20:59:00 RESPIRATORY THERAPY AIDE, Duration: 1 doses or times, Stop date: 07/11/16 20:59:00 RESPIRATORY THERAPY AIDE Acetaminophen 1,000 mg, 2 Inactive [place] tab, Route: PO, 2016 Medical Drug form: TAB, Center ONCE, Dosing Weight 84.545, kg, Priority: STAT, Start date: 07/11/16 20:59:00 RESPIRATORY THERAPY AIDE, Stop date: 07/11/16 20:59:00 CSTNotes: Max acetaminophen 4000 mg/day (4 gm/day). (Same as: Tylenol Extra Strength) Allergies, Adverse Reactions, Alerts Substance Category Reaction Severity Reaction Status Date Comments Source type Reported amoxicillin Assertion Drug Active MH allergy [facility] LaMICtal Assertion Drug Active MH allergy [facility] Medical Tape Assertion Drug Active MH allergy [place] penicillins Assertion Drug Active MH allergy [facility] Immunizations Immunization Date Given Site Status Last Updated Comments Source Results Order Name Results Value Reference Date Interpretation Comments Source Range Brain Brain shunt Clinical Indication:21 years Female with Pain and swelling 07/15 - shunt series DX /2015 - [facility] series DX Comparison: Shunt study 07/12/2016 Read by: Scot Saenz MD Dictated Date/time: 07/15/16 23:38 FINDINGS: Electronically Signed by: Scot Saenz MD 07/15/16 23:41 FINAL REPORT Radiographs of the right SENIOR SALES REPRESENTATIVE shunt obtained from the skull to the abdomen. Unchanged appearance of the SENIOR SALES REPRESENTATIVE shunt, which goes from the right lateral ventricle along the right neck, traverses the right upper chest to the left lower chest, and terminates in the left upper quadrant. No discontinuity of the SENIOR SALES REPRESENTATIVE shunt. 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 IMPRESSION: Unchanged appearance of right SENIOR SALES REPRESENTATIVE shunt. No discontinuity of the shunt catheter or other significant radiographic abnormality. Brain wo Brain wo Exam: MRI brain without and with contrast. 07/13 - [facility] contrast contrast MRI /2015 - Medical MRI [...] brain without and with contrast. 07/13 - [facility] contrast contrast MRI /2015 - Medical MRI [...] CSF 34 mg/dL 15 - 45 07/13 [facility] FLUIDS [facility] BODY Color CSF Colorless Colorless 07/[address] [place] [address] [facility] (07/13/16 7:35 AM) Center BODY Clarity CSF Clear Clear 07/13 [facility] [address] [facility] (07/13/16 7:35 AM) Center BODY Tube Num CSF xxxxxxx 07/[address] [place] [address] [facility] (07/13/16 7:35 AM) Center BODY RBC CSF 0 /mm3 0 - 03 07/13 [facility] FLUIDS [facility] BODY Supernat CSF Colorless Colorless 07/[address] [place] [address] [facility] (07/13/16 7:35 AM) Center BODY WBC CSF 1 /mm3 0 - 53 07/13 [facility] FLUIDS [facility] BODY Glucose CSF 56 mg/dL 45 - 80 07/13 [facility] FLUIDS /2015 [facility] IMMUNOLOGY PE Interp CSF 07/13 [facility] protein [facility] electropho [facility] resis did not reveal evidence of an oligoclona l process in the LACTATION COORDINATOR. The CSF IgG index is within the reference range indicating that there is no elevation in intracereb ral IgG synthesis. There is also no evidence of increased permeabili ty of the blood brain barrier based on the CSF/serum albumin ratio.The electronic medical record has been reviewed for relevant history.I have personally reviewed the test results and concur with the resident's interpreta tion.CPT: [id number] IMMUNOLOGY Description The gel 07/13 [facility] CSF demonstrat [facility] appropriat e resolution of the main protein bands. The gamma region shows continuous distributi on of proteins both in the CSF and in the serum. No oligoclona l bands are detected. IMMUNOLOGY IgG (CPE) 1010 mg/dL 694 - 1618 07/13 [facility] IMMUNOLOGY Alb (CPE) 4100.0 3400.0 - 07/13 [facility] mg/dL 5000.0 [facility] IMMUNOLOGY IgG Lvl CSF 1.7 mg/dL 2.0 - 4.0 07/13 [facility] IMMUNOLOGY Alb CSF 14.7 mg/dL 14.0 - 07/13 [facility] (CPE) 25.0 [facility] IMMUNOLOGY IgG Index 0.5 mg/dL 0.3 - 0.7 07/13 [facility] CHEM PANEL eGFR 128 07/13 Result Comment: The eGFR is calculated using the CKD-EPI formula. In most young, healthy individuals the eGFR will be >90 mL/ min/1.73m2. The eGFR declines with age. An eGFR of 60-89 may be normal in [facility] mL/min/1.7 some populations, particularly the elderly, for whom the CKD-EPI formula has not been extensively validated. Use of the eGFR is not recommended in the following populations: [address] Individuals with unstable creatinine concentrations, including [...] Lvl 8.8 mg/dL 8.5 - 10.5 07/13 [facility] CHEM PANEL CO2 23 meq/L 24 - 32 07/13 [facility] CHEM PANEL Chloride Lvl 108 meq/L 95 - 109 07/13 [facility] CHEM PANEL Creatinine 0.61 mg/dL 0.50 - 07/13 [facility] Lvl 1.40 [facility] CHEM PANEL Sodium Lvl 142 meq/L 135 - 145 07/13 [facility] CHEM PANEL BUN 7 mg/dL 7 - 22 07/13 [facility] CHEM PANEL Potassium 3.9 meq/L 3.5 - 5.1 07/13 [facility] Lvl /2015 [facility] CHEM PANEL Glucose Lvl 88 mg/dL 70 - 99 07/13 [facility] CHEM PANEL AGAP 14.9 meq/L 10.0 - 07/13 20.0 [facility] HEMATOLOGY Lymphocytes 37.9 % 20.0 - 07/13 40.0 [facility] HEMATOLOGY Segs 52.1 % 45.0 - 07/13 75.0 [facility] HEMATOLOGY Monocytes 7.3 % 2.0 - 12.0 07/13 [facility] HEMATOLOGY Basophils 0.8 % 0.0 - 1.0 07/13 [facility] HEMATOLOGY Eosinophils 1.9 % 0.0 - 4.0 07/13 [facility] HEMATOLOGY Segs-Bands # 3.8 K/CMM 1.5 - 8.1 07/13 [facility] HEMATOLOGY Eosinophils 0.1 K/CMM 0.0 - 0.5 07/13 [facility] HEMATOLOGY Monocytes # 0.5 K/CMM 0.0 - 0.8 07/13 [facility] HEMATOLOGY Lymphocytes 2.7 K/CMM 1.0 - 5.5 07/13 [facility] HEMATOLOGY Basophils # 0.1 K/CMM 0.0 - 0.2 07/13 [facility] HEMATOLOGY RBC 4.53 M/CMM 4.20 - 07/13 5.40 [facility] HEMATOLOGY WBC 7.2 K/CMM 3.7 - 10.4 07/13 [facility] HEMATOLOGY Hct 38.5 % 36.0 - 07/13 48.0 [facility] HEMATOLOGY Hgb 13.0 g/dL 12.0 - 07/13 16.0 [facility] HEMATOLOGY MCHC 33.9 g/dL 32.0 - 07/13 36.0 [facility] HEMATOLOGY MCH 28.8 pg 27.0 - 07/13 31.0 [facility] HEMATOLOGY RDW 14.0 % 11.5 - 07/13 14. [facility] HEMATOLOGY MPV 9.2 fL 7.4 - 10.4 07/13 [facility] HEMATOLOGY Platelet 283 K/CMM 133 - 450 07/13 [facility] HEMATOLOGY MCV 84.9 fL 80.0 - 07/13 [place] 98.0 /2015 [facility] HEMATOLOGY INR 0.96 0.85 - 07/13 [place] 1.17 /2015 [facility] HEMATOLOGY PTT 31.9 s 22.9 - 07/13 [place] 35.8 /2015 [facility] HEMATOLOGY PT 13.0 s 12.0 - 07/13 [facility] 14.7 [facility] Brain wo Brain wo EXAM: CT HEAD WITHOUT CONTRAST 07/13 [facility] contrast contrast CT /2015 - [facility] CT Center DATE: 07/13/2016 Read by: Marcos Jo MD Dictated Date/time: 07/13/16 06:58 Electronically Signed by: Marcos Jo MD 07/13/16 07:01 FINAL REPORT INDICATION: 21 years old Female patient with history of SENIOR SALES REPRESENTATIVE shunt placement , now complaining of headache. TECHNIQUE: Multiple axial images were obtained through the head from vertex to the skull base. Axial bone algorithm reconstruction images are provided. COMPARISON: Prior CT Scan of the head dated 07/12/2016 147 AM RESPIRATORY THERAPY AIDE DISCUSSION: Again identified is a right parietal approach SENIOR SALES REPRESENTATIVE shunt catheter with distal tip lies within [...] adverse change. 2. Stable right parietal approach SENIOR SALES REPRESENTATIVE shunt catheter with adequately decompressed ventricular system. 3. 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 CARDIAC Troponin-T null 0.000 - 07/12 [facility] ENZYMES 0.100 [facility] CARDIAC Total CK 33 unit/L 12 - 191 07/12 [facility] ENZYMES /2015 [facility] MYOGLOBIN Myoglobin 35 ng/mL 25 - 72 07/12 [place] /[address] [place] [address] Chest Chest 1view EXAM: XR CHEST 1 VIEW 07/12 - [facility] 1view DX DX /2015 [facility] DATE: 07/12/2016 4:10 PM RESPIRATORY THERAPY AIDE Read by: Albert Vail MD Dictated Date/time: 07/12/16 16:40 Electronically Signed by: Albert Vail 07/12/16 16:42 FINAL REPORT INDICATION: Chest pain COMPARISON: Yesterday TECHNIQUE: AP chest FINDINGS: Abandoned and calcified discontinuous SENIOR SALES REPRESENTATIVE shunt tubing is redemonstrated over the right lower neck and anterior chest, coursing over the upper abdomen. Additional SENIOR SALES REPRESENTATIVE shunt tubing is seen over t he right neck, extending over the midline chest and left upper quadrant; distal tubing is not well seen. Stable cardiomediastinal silhouette. No new pulmonary or pleural based abnormalities. IMPRESSION: No significant change. Brain Brain shunt EXAM: XR SHUNT SERIES 07/12 - [place] shunt series - Medical series DX This report was dictated by a Sample Collector/Fellow. I have personally reviewed the images as Center well as the Resident's interpretation and agree with the findings. DATE: 07/12/2016 7:03 AM RESPIRATORY THERAPY AIDE Read by: Siva Lanza MD Resident: Siva [...] the L3 level. IMPRESSION: 1. Right programmable SENIOR SALES REPRESENTATIVE shunt with unremarkable appearance. 2. 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 Skull 1 Skull 1 view EXAM: XR SKULL 1 VIEW 07/12 - [place] view DX DX /2015 - Medical This report was dictated by a Sample Collector/Fellow. I have personally reviewed the images as Center well as the Resident's interpretation and agree with the findings. DATE: 07/12/2016 7:03 AM RESPIRATORY THERAPY AIDE Read by: Siva Lanza MD Resident: Siva [...] DRUG U Phencyc Negative Negative 07/12 [facility]CREEN [facility] [place] (07/12/16 12:39 AM) DRUG U Opiate Scr Negative Negative 07/12 [facility] (07/12/16 12:39 AM) DRUG U Propoxyph Negative Negative 07/12 [facility] (07/12/16 12:39 AM) DRUG U Methadone Negative Negative 07/12 [facility] (07/12/16 12:39 AM) DRUG UDS Note See Note 07/12 [facility] (07/12/16 12:39 AM) DRUG U Benzodia Negative Negative 07/12 [facility] (07/12/16 12:39 AM) DRUG U Amph Scr Negative Negative 07/12 [facility] (07/12/16 12:39 AM) DRUG U Cannab Scr Negative Negative 07/12 [facility] (07/12/16 12:39 AM) DRUG U Cocaine Negative Negative 07/12 [facility] (07/12/16 12:39 AM) DRUG U Tori Scr Negative Negative 07/12 [facility] [place] (07/12/16 12:39 AM) HEMATOLOGY Platelet 306 K/CMM 133 - 450 07/12 [facility] HEMATOLOGY RDW 13.5 % 11.5 - 07/12 [place] 14. [facility] HEMATOLOGY MPV 9.3 fL 7.4 - 10.4 07/12 [facility] HEMATOLOGY RBC 4.46 M/CMM 4.20 - 07/12 [place] 5.40 /2015 [facility] HEMATOLOGY Hgb 12.6 g/dL 12.0 - 07/12 [place] 16.0 /2015 [facility] HEMATOLOGY Hct 37.4 % 36.0 - 07/12 [place] 48.0 /2015 [facility] HEMATOLOGY MCV 83.9 fL 80.0 - 07/12 [place] 98.0 /2015 [facility] HEMATOLOGY WBC 9.4 K/CMM 3.7 - 10.4 07/12 /2015 [facility] HEMATOLOGY MCH 28.3 pg 27.0 - 07/12 [place] 31.0 /2015 [facility] HEMATOLOGY MCHC 33.8 g/dL 32.0 - 07/12 [facility] 36.0 [facility] HEMATOLOGY PTT 33.7 s 22.9 - 07/12 [place] 35.8 /2015 [facility] HEMATOLOGY INR 1.02 0.85 - 07/12 [place] 1.17 [facility] HEMATOLOGY PT 13.6 s 12.0 - 07/12 [place] 14.7 /2015 [facility] HEMATOLOGY Segs-Bands # 5.5 K/CMM 1.5 - 8.1 07/12 [facility] HEMATOLOGY Monocytes # 0.6 K/CMM 0.0 - 0.8 07/12 [facility] HEMATOLOGY Lymphocytes 3.0 K/CMM 1.0 - 5.5 07/12 [place] /2015 [facility] HEMATOLOGY Basophils # 0.1 K/CMM 0.0 - 0.2 07/12 [facility] HEMATOLOGY Eosinophils 0.1 K/CMM 0.0 - 0.5 07/12 [place] /2016 [facility] HEMATOLOGY Basophils 0.9 % 0.0 - 1.0 07/12 /2015 [facility] HEMATOLOGY Segs 58.7 % 45.0 - 07/12 [place] 75.0 [facility] HEMATOLOGY Lymphocytes 32.5 % 20.0 - 07/12 [place] 40.0 /2016 [facility] HEMATOLOGY Monocytes 6.5 % 2.0 - 12.0 07/12 [facility] HEMATOLOGY Eosinophils 1.4 % 0.0 - 4.0 07/12 [facility] URINE AND UA WBC 1 /HPF 0 - 5 07/12 [facility] [place] [facility] URINE AND Micro? Not Indicated 07/[address] [facility] *NA* [place] (07/12/16 12:39 AM) URINE AND UA <=1.0 0.1 - 1.0 07/12 [facility] [place] [facility] Urobilinogen mg/dL [facility] URINE AND UA Protein Negative Negative 07/12 [facility] mg/dL mg/dL [facility] URINE AND UA Glucose Negative Negative 07/12 [facility] mg/dL mg/dL [facility] URINE AND UA Turbidity Clear Clear 07/[address] [facility] (07/12/16 12:39 AM) [facility] URINE AND UA Spec Grav 1.011 <=1.030 07/12 [facility] [place] [facility] URINE AND UA pH 6.5 5.0 - 8.0 07/12 [facility] [place] [facility] URINE AND UA Color Yellow Yellow 07/[address] [facility] *NA* [place] (07/12/16 12:39 AM) URINE AND UA Sq Epi Moderate Few /LPF 07/12 [facility] STOOL /LPF /2015 [facility] URINE AND UA Leuk Est Negative Negative 07/[address] [facility] (07/12/16 12:39 AM) [facility] URINE AND UA Ketones Negative Negative 07/12 [facility] [place] [facility] mg/dL mg/dL [facility] URINE AND UA Bili Negative Negative 07/[address] [facility] *NA* [place] (07/12/16 12:39 AM) URINE AND UA Blood Negative Negative 07/12 [facility] [place] [facility] (07/12/16 12:39 AM) [facility] URINE AND UA Nitrite Negative Negative 07/[address] [facility] (07/12/16 12:39 AM) [facility] URINE CHEM U Preg Negative Negative 07/12 [facility] (07/12/16 12:39 AM) Center BLOOD BANK Antibody Negative 07/12 [facility] RESULTS Scrn [facility] (07/11/16 11:50 PM) [place] BLOOD BANK ABO/Rh A POS 07/12 [facility] RESULTS [facility] CHEM PANEL Glucose Lvl 93 mg/dL 70 - 99 07/12 [facility] CHEM PANEL AGAP 15.5 meq/L 10.0 - 07/12 [place] 20.0 [facility] CHEM PANEL eGFR 113 07/12 Result Comment: The eGFR is calculated using the CKD-EPI formula. In most young, healthy individuals the eGFR will be >90 mL/ min/1.73m2. The eGFR declines with age. An eGFR of 60-89 may be normal in [facility] mL/min/1. some populations, particularly the elderly, for whom the CKD-EPI formula has not been extensively validated. Use of the eGFR is not recommended in the following populations: [address] Individuals with unstable creatinine concentrations, including [...] Lvl 142 meq/L 135 - 145 07/[address] CHEM PANEL Creatinine 0.75 mg/dL 0.50 - 07/12 [facility] [facility] CHEM PANEL BUN 6 mg/dL 7 - 22 07/[address] CHEM PANEL Calcium Lvl 8.8 mg/dL 8.5 - 10.5 07/[address] CHEM PANEL CO2 26 meq/L 24 - 32 07/[address] CHEM PANEL Potassium 3.5 meq/L 3.5 - 5.1 07/12 [facility] CHEM PANEL Chloride Lvl 104 meq/L 95 - 109 07/[address] Brain wo Brain wo EXAM: CT HEAD WITHOUT CONTRAST 07/12 - [facility] contrast contrast CT /2015 - [facility] DATE: 07/12/2016 147 AM RESPIRATORY THERAPY AIDE Read by: Marcos Jo MD Dictated Date/time: 07/12/16 10:11 Electronically Signed by: Marcos Jo MD 07/12/16 10:22 FINAL REPORT INDICATION: 21 years old Female patient with history of SENIOR SALES REPRESENTATIVE shunt placement , now complaining of headache. TECHNIQUE: Multiple axial images were obtained through the head from vertex to the skull base. Axial bone algorithm reconstruction images are provided. COMPARISON: Prior outside hospital CT Scan of the head dated 07/11/2016 DISCUSSION: Again identified is a right parietal approach SENIOR SALES REPRESENTATIVE shunt catheter with distal tip lies within [...] adverse change. 2. Stable right parietal approach SENIOR SALES REPRESENTATIVE shunt catheter with adequately decompressed ventricular system. 3. 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 Chest Chest 1view EXAM: XR CHEST 1 VIEW 07/11 [facility] 1view DX DX /2015 - [facility] This report was dictated by a Sample Collector/Fellow. I have personally reviewed the images as Center well as the Resident's interpretation and agree with the findings. DATE: 07/11/2016 2230 hours Read by: Macy Campos MD Resident: Macy Campos MD Dictated Date/time: 07/11/16 22:49 Electronically Signed by: Aron Pacheco 07/12/16 08:18 FINAL REPORT INDICATION: Mass COMPARISON: Chest radiograph 07/11/2016 TECHNIQUE: AP chest FINDINGS: Lines and tubes: Abandoned and calcified discontinuous SENIOR SALES REPRESENTATIVE shunt tubing is redemonstrated over the right lower neck and anterior chest, coursing over the upper abdomen. Additional SENIOR SALES REPRESENTATIVE shunt tubing is seen over the right [...] No acute cardiopulmonary abnormality. 2. Partially visualized SENIOR SALES REPRESENTATIVE shunt tubing as discussed above. Vital Signs Vital Sign Value Date Comments Source Respitory Rate 16 07/16/2016 [facility] Systolic (mm Hg) 134 07/16/2016 [facility] Diastolic (mm Hg) 63 07/16/2016 [facility] Temperature Oral (F) 98.2 F 07/16/2016 [facility] Temperature Oral (F) 98.6 F 07/16/2016 [facility] Respitory Rate 14 07/16/2016 [facility] Diastolic (mm Hg) 81 07/16/2016 [facility] Systolic (mm Hg) 131 07/16/2016 [facility] Weight 84.545 07/16/2016 [facility] Respitory Rate 20 07/16/2016 [facility] Heart Rate 110 07/16/2016 [facility] Temperature Oral (F) 98.8 F 07/16/2016 [facility] BMI Calculated 35.22 07/16/2016 [facility] Height 154.94 cm 07/16/2016 [facility] Systolic (mm Hg) 126 07/16/2016 [facility] Diastolic (mm Hg) 87 07/16/2016 [facility] Respitory Rate 12 07/14/2016 [facility] Temperature Oral (F) 97.9 F 07/14/2016 [facility] Systolic (mm Hg) 111 07/14/2016 [facility] Diastolic (mm Hg) 72 07/14/2016 [facility] Respitory Rate 16 07/14/2016 [facility] Systolic (mm Hg) 117 07/14/2016 [facility] Diastolic (mm Hg) 79 07/14/2016 [facility] Respitory Rate 13 07/14/2016 [facility] Systolic (mm Hg) 110 07/14/2016 [facility] Diastolic (mm Hg) 61 07/14/2016 [facility] Heart Rate 84 07/14/2016 [facility] Heart Rate 75 07/14/2016 [facility] Heart Rate 81 07/14/2016 [facility] Temperature Oral (F) 98.0 F 07/13/2016 [facility] Temperature Oral (F) 98.1 F 07/13/2016 [facility] Weight 84.545 07/12/2016 [facility] Weight 84.545 07/12/2016 [facility] Height 152.4 cm 07/12/2016 [facility] BMI Calculated 36.4 07/12/2016 [facility] Encounters Location Location Encounter Encounter Reason Attending ADM DC Status Source Details Type Number For Provider Date Date Visit [facility] [id number] [place] 07[facility]12 07/14 Patsy Decker [facility] [id number] [place] 07/16 07/16 [facility]yon Chung /2015 [facility] Procedures Procedure Code Date Perfomer Comments Source 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
[2018-02-21] MEDS ORDERED: levETIRAcetam 1,000 MG in NA CHLORIDE 0.9% 100 ML IV SCH (11:00)
[2018-02-21 11:25] LABS: Absolute Lymphocytes (CBC) 1.8 K/uL (0.7-4.9); Absolute Monocytes 0.6 K/uL (0.1-1.3); Absolute Neutrophil 5.7 K/uL (1.8-8.0); Basophils % 0.8 % (0-1.3); Eosinophils % 1.1 % (0-4.4); Hematocrit 39.9 % (36.0-45.0); Lymphocytes % 21.2 % (15.3-44.8); MCH 29.7 pg (27.0-35.0); MCV 85.7 fL (80-100); MPV 8.7 fL (7.6-11.3); Monocytes % 7.7 % (3.3-12.3); RBC Red Blood Cell Count 4.66 M/uL (3.86-4.86)
[2018-02-21 11:43] LABS: ALT/SGPT 25 U/L (12-78); AST/SGOT 26 U/L (15-37); Albumin 3.6 g/dL (3.4-5.0); Alkaline Phosphatase 88 U/L (45-117); Amylase Level 62 U/L (25-115); BUN Blood Urea Nitrogen 12 mg/dL (7-18); Bicarbonate 24 mmol/L (21-32); Bilirubin Direct < 0.1 mg/dL (0-0.2); Bilirubin Total 0.2 mg/dL (0.2-1.0); Glucose Level 96 mg/dL (74-106); Lipase 117 U/L (73-393); Protein, Total 7.7 g/dL (6.4-8.2); Sodium Level 141 mmol/L (136-145)
--- NOTE | 2018-02-21 12:22 | RAD REPORT ---
EXAM DESCRIPTION: CT - Head Brain Wo Cont - 02/21/2018 12:09 pm CLINICAL HISTORY: SEIZURE COMPARISON: Head Brain Wo Cont dated 12/24/2017; Head Brain Wo Cont dated 05/15/2017Head Brain Wo Cont dated 12/24/2017; Head Brain Wo Cont dated 05/15/2017 TECHNIQUE: All CT scans are performed using dose optimization technique as appropriate and may inclu de automated exposure control or mA/KV adjustment according to patient size. FINDINGS: No acute hemorrhage, midline shift or hydrocephalus. Mild chronic extra-axial fluid along the right convexity superiorly, unchanged. 3 cm midline intracranial lipoma, unchanged. Right-sided v entriculostomy tube is stable. Evidence of previous posterior fossa craniotomy again seen. 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 No sign ificant paranasal sinus or mastoid opacification. Overall, no significant change has occurred since the comparative study. IMPRESSION: No acute intracranial abnormality.
--- NOTE | 2018-02-21 12:29 | RAD REPORT ---
EXAM DESCRIPTION: RAD - Shuntogram - 02/21/2018 12:05 pm CLINICAL HISTORY: seizure COMPARISON: Abdomen Pelvis W Contrast dated 09/11/2017; Head Brain Wo Cont dated 12/24/2017; Head Br ain Wo Cont dated 02/21/2018 FINDINGS: Right-sided shunt tubing is noted. No kink or break is seen along the length of the tube. Old shunt tubing is seen in the superior aspect of the right chest as well. The tubing appears to coi l in upper abdomen.
[2018-02-21 13:01] LABS: Urine Blood TRACE (NEG); Urine Glucose NEGATIVE (NEG); Urine Protein NEGATIVE (NEG); Urine Specific Gravity >1.030 (1.005-1.030); Urine pH 6.5 (5.0-7.0)
[2018-02-21 13:05] LABS: Urine Bacteria 20-50 /HPF (<20); Urine Culture Reflex Order REFLEXED; Urine RBC <5 /HPF (NONE SEEN)
[2018-02-21 13:17] LABS: Barbiturates NEGATIVE (NEGATIVE); Benzodiazepines NEGATIVE (NEGATIVE); Cocaine NEGATIVE (NEGATIVE); METHAMPHETAM NEGATIVE (NEGATIVE); Methadone NEGATIVE (NEGATIVE); Opiates NEGATIVE (NEGATIVE); Phencyclidine NEGATIVE (NEGATIVE); THC Cannibis POSITIVE (NEGATIVE)
--- NOTE | 2018-02-21 14:15 | EDPHYS ---
Physician Documentation [facility] Name: Shanna Estrella Age: 23 yrs Sex: Female : 1995 Arrival Date: 02/21/2018 Time: 10:17 Bed 14 Private MD: None, None ED Physician Jeancarlos Wilkerson HPI: 02/21 10:53 This 23 yrs old Female presents to ER via Wheelchair with complaints of jmm Probable Seizure. 10:53 The patient presents with a history of multiple seizures, a total of 8. Character of jmm seizure(s): Loss of consciousness: the patient experienced loss of consciousness, Motor activity: blank stare, Apnea:. Seizure onset: today. Seizure Hx: Seizure medications: Keppra. Associated injury: The patient did not suffer any apparent associated injury. This is a 23 year old female with a history of hydrocephaly, epilepsy, chiari malformation that presents to the ED with multiple seizure beginning today. The patients friend states he witnessed 8 seizures, patient did loose consciousness and reports no known injuries. The patient was recently evaluated in the ED 4 days prior and the friend states the patient has taken the medication as directed. . 10:59 The patient has experienced similar episodes in the past, several times. jm 12:56 Character of seizure(s): Motor activity: blank stare. 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 - Ebola Screening: : Patient negative for fever greater than or equal to 101.5 degrees Fahrenheit, and additional compatible Ebola Virus Disease symptoms Patient denies exposure to infectious person Patient denies travel to an Ebola-affected area in the 21 days before illness onset No symptoms or risks identified at this time. - Social history:: Smoking status: Patient/guardian denies using tobacco, Patient/guardian denies using alcohol. ROS: 10:59 Constitutional: Negative for fever, chills, and weight loss, Cardiovascular: Negative jm for chest pain, palpitations, and edema, Respiratory: Negative for shortness of breath, cough, wheezing, and pleuritic chest pain, Abdomen/GI: Negative for abdominal pain, nausea, vomiting, diarrhea, and constipation. 10:59 Neuro: Positive for seizure activity. 10:59 All other systems are negative. Exam: 10:59 Neck: Trachea midline, Supple Cardiovascular: Regular rate and rhythm. No edema jmm appreciated Respiratory: Normal respirations, no respiratory distress appreciated Abdomen/GI: Non distended, soft Back: Normal ROM Skin: General appearance color normal 10:59 Constitutional: The patient appears awake, post ictal in appearance 10:59 Head/face: Exam is negative for yao signs, raccoon eyes. 10:59 Eyes: Extraocular movements: intact throughout. Vital Signs: 10:47 BP 119 / 85; Pulse 102; Resp 18; Temp 99.3(O); Pulse Ox 98% on R/A; Weight 86.18 kg; mh5 Height 5 ft. 2 in. (157.48 cm); Pain 5/10; 11:45 BP 120 / 84; Pulse 95; Resp 18; Pulse Ox 100% on R/A; hj 12:45 BP 121 / 82; Pulse 90; Resp 18; Pulse Ox 100% on R/A; hj 13:26 BP 118 / 80; Pulse 89; Resp 18; Pulse Ox 100% on R/A; hj 10:47 Body Mass Index 34.75 (86.18 kg, 157.48 cm) mh5 Kelli Coma Score: 10:43 Eye Response: spontaneous(4). Verbal Response: oriented(5). Motor Response: obeys hj commands(6). Total: 15. MDM: 10:48 Patient medically screened. [facility] 13:40 Data reviewed: vital signs, nurses notes, lab test result(s). [facility] 13:40 Data reviewed: radiologic studies, CT scan. ED course: Throughout the patient's stay, [facility] the patient has become more alert. The patient's imaging studies reveal no sign of shunt abnormality. Patient was administered 1 gram of keppra in the ED and the home dose was adjusted to 1 gram PO BID. The patient is encouraged to follow up with Neurology for further evaluation. The patient understood and agrees with the plan of care. Patient is neuro intact on discharge. . 02/21 10:49 Order name: Amylase, Serum; Complete Time: 11:52 [facility] 02/21 10:49 Order name: Basic Metabolic Panel; Complete Time: 11:52 [facility] 02/21 10:49 Order name: CBC with Diff; Complete Time: 11:52 [facility] 02/21 10:49 Order name: Creatinine for Radiology; Complete Time: 11:52 [facility] 02/21 10:49 Order name: Hepatic Function; Complete Time: 11:52 [facility] 02/21 10:49 Order name: Lipase; Complete Time: 11:52 [facility] 02/21 10:49 Order name: Urine Microscopic Only; Complete Time: 13:22 [facility] 02/21 10:58 Order name: CT Head Brain wo Cont; Complete Time: 12:30 [facility] 02/21 11:13 Order name: Shuntogram XRAY; Complete Time: 12:30 [facility] 02/21 12:36 Order name: Urine Drug Screen; Complete Time: 13:22 [facility] 02/21 12:57 Order name: Urine Dipstick--Ancillary (enter results); Complete Time: 13:22 ag 02/21 12:57 Order name: Urine --Ancillary (enter results); Complete Time: 13:22 ag 02/21 13:06 Order name: Urine Culture [facility] 02/21 10:49 Order name: IV Saline Lock; Complete Time: 11:23 [facility] 02/21 10:49 Order name: Labs collected and sent; Complete Time: 11:23 [facility] 02/21 10:49 Order name: Urine Test (obtain specimen); Complete Time: 12:59 jm Administered Medications: 11:23 Drug: Keppra 1000 mg Route: IV; Rate: calculated rate; Site: right wrist; hj 13:15 Follow up: IV Status: Completed infusion; IV Intake: 110ml hj 13:14 CANCELLED (wrong patient): Tetanus-Diphtheria Toxoid Adult 0.5 ml IM once [facility] Disposition: 02/22 10:28 Co-signature as Attending Physician, Jeancarlos Wilkerson MD. Disposition: 02/21/18 14:14 Discharged to Home. Impression: Epilepsy and recurrent seizures. - Condition is Stable. - Discharge Instructions: Seizure, Adult. - Prescriptions for Keppra 500 mg Oral Tablet - take 2 tablet by ORAL route every 12 hours; 40 tablet. Bactrim DS 800- 160 mg Oral Tablet - take 1 tablet by ORAL route every 12 hours for 3 days; 6 tablet. - Medication Reconciliation Form, Thank You Letter, Antibiotic Education, Prescription Opioid Use form. - Follow up: Private Physician; When: 2 - 3 days; Reason: Continuance of care. Signatures: Dispatcher [employer] EDMS Pranay Daly PA PA jmm Williams, Irene, RN RN Anatoliy Coleman RN RN hj Starr, Gregory, MD MD gs Corrections: (The following items were deleted from the chart) 02/21 12:57 10:53 Character of seizure(s): Motor activity: generalized, nathalia sloan 13:14 13:13 Tetanus-Diphtheria Toxoid Adult 0.5 ml IM once ordered. nathalia sloan 14:24 14:14 02/21/2018 14:14 Discharged to Home. Impression: Epilepsy and recurrent seizures. hj Condition is Stable. Forms are Medication Reconciliation Form, Thank You Letter, Antibiotic Education, Prescription Opioid Use. Follow up: Private Physician; When: 2 - 3 days; Reason: Continuance of care. nathalia
--- NOTE | 2018-02-21 14:15 | ER ---
Nurse's Notes [facility] Name: Shanna Estrella Age: 23 yrs Sex: Female : 1995 Arrival Date: 02/21/2018 Time: 10:17 Bed 14 Private MD: None, None Diagnosis: Epilepsy and recurrent seizures Presentation: 02/21 10:46 Presenting complaint: Significant other states: pt has had 9 seizures in past hour and iw now she has had memory loss, states that her seizures "look like she's sleeping" when she has them, pt was seen here on 02-17-18, was prescribed Keppra and has been taking it, has had similar seizure like behavior in the past but does not have a neurologist, seizure activity usually lasts 30 seconds-3 minutes, pt is alert and talking but states she does not remember her name, when asked her name pt states "they say my name is Shanna", when asked her age states "they say I;m 23 years old", when asked where she is "they say I'm at the hospital but I don't know what a hospital is". Transition of care: patient was not received from another setting of care. Onset of symptoms was February 21, 2018. Risk Assessment: Do you want to hurt yourself or someone else? Patient reports no desire to harm self or others. Initial Sepsis Screen: Does the patient meet any 2 criteria? No. Patient's initial sepsis screen is negative. Does the patient have a suspected source of infection? No. Patient's initial sepsis screen is negative. Care prior to arrival: None. 10:46 Method Of Arrival: Wheelchair iw 10:46 Acuity: ELI 3 iw 10:50 Note boyfriend states she has been taking her Keppra s prescribed but did not take it iw this morning. Triage Assessment: 10:43 General: Appears in no apparent distress. uncomfortable, Behavior is calm, cooperative, hj appropriate for age. 10:47 Neuro: Level of Consciousness is awake, alert, obeys commands, Oriented to person, hj situation. 10:47 Pain: Denies pain. 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 - Ebola Screening: : Patient negative for fever greater than or equal to 101.5 degrees Fahrenheit, and additional compatible Ebola Virus Disease symptoms Patient denies exposure to infectious person Patient denies travel to an Ebola-affected area in the 21 days before illness onset No symptoms or risks identified at this time. - Social history:: Smoking status: Patient/guardian denies using tobacco, Patient/guardian denies using alcohol. Screenin:34 Abuse screen: Denies threats or abuse. Nutritional screening: No deficits noted. hj Tuberculosis screening: No symptoms or risk factors identified. Fall Risk None identified. Assessment: 11:20 General: Appears in no apparent distress. uncomfortable, obese, Behavior is calm, hj cooperative, appropriate for age. Pain: Complains of pain in head. Neuro: Level of Consciousness is awake, alert, obeys commands, Oriented to person, situation. Cardiovascular: Capillary refill < 3 seconds Patient's skin is warm and dry. Respiratory: Airway is patent Respiratory effort is even, unlabored, Respiratory pattern is regular, symmetrical. GI: No signs and/or symptoms were reported involving the gastrointestinal system. : No signs and/or symptoms were reported regarding the genitourinary system. EENT: No signs and/or symptoms were reported regarding the EENT system. Derm: No signs and/or symptoms reported regarding the dermatologic system. Musculoskeletal: No signs and/or symptoms reported regarding the musculoskeletal system. 12:30 Reassessment: Patient and/or family updated on plan of care and expected duration. Pain hj level reassessed. Patient is alert, oriented x 3, equal unlabored respirations, skin warm/dry/pink. no cpmplaints of pain;. 13:24 Reassessment: Patient and/or family updated on plan of care and expected duration. Pain hj level reassessed. Patient is alert, oriented x 3, equal unlabored respirations, skin warm/dry/pink. awaaiting POC;. Vital Signs: 10:47 BP 119 / 85; Pulse 102; Resp 18; Temp 99.3(O); Pulse Ox 98% on R/A; Weight 86.18 kg; mh5 Height 5 ft. 2 in. (157.48 cm); Pain 5/10; 11:45 BP 120 / 84; Pulse 95; Resp 18; Pulse Ox 100% on R/A; hj 12:45 BP 121 / 82; Pulse 90; Resp 18; Pulse Ox 100% on R/A; hj 13:26 BP 118 / 80; Pulse 89; Resp 18; Pulse Ox 100% on R/A; hj 10:47 Body Mass Index 34.75 (86.18 kg, 157.48 cm) mh5 Kelli Coma Score: 10:43 Eye Response: spontaneous(4). Verbal Response: oriented(5). Motor Response: obeys hj commands(6). Total: 15. ED Course: 10:17 Patient arrived in ED. mr 10:17 None, None is Private Physician. mr 10:30 Pranay Daly PA is PHCP. [facility] 10:30 Jeancarlos Wilkerson MD is Attending Physician. [facility] 10:41 Anatoliy Coleman, BANG is Primary Nurse. hj 10:48 Patient has correct armband on for positive identification. Bed in low position. Call 5 light in reach. Side rails up X2. Adult w/ patient. Pulse ox on. NIBP on. 10:48 Arm band placed on. hj 10:48 Seizure precautions initiated. hj 10:50 Triage completed. iw 11:20 Inserted saline lock: 22 gauge in left antecubital area, using aseptic technique. Blood mh5 collected. Patient did not have IV access during this emergency room visit. Pressure dressing applied. 11:25 Inserted saline lock: 24 gauge in right wrist, using aseptic technique. hj 12:05 Shuntogram XRAY In Process Unspecified. EDMS 12:09 CT Head Brain wo Cont In Process Unspecified. EDMS 12:09 CT completed. Patient tolerated procedure well. Patient moved back from CT. bq 12:58 Urine --Ancillary (enter results) Sent. mh5 12:58 Urine Dipstick--Ancillary (enter results) Sent. mh5 12:59 Urine Drug Screen Sent. mh5 12:59 Urine Microscopic Only Sent. mh5 12:59 Initial lab(s) drawn, by ED staff, sent to lab. Urine collected: clean catch specimen, mh5 clear. 14:23 No provider procedures requiring assistance completed. IV discontinued, intact, hj bleeding controlled, No redness/swelling at site. Pressure dressing applied. Administered Medications: 11:23 Drug: Keppra 1000 mg Route: IV; Rate: calculated rate; Site: right wrist; 13:15 Follow up: IV Status: Completed infusion; IV Intake: 110ml 13:14 CANCELLED (wrong patient): Tetanus-Diphtheria Toxoid Adult 0.5 ml IM once [facility] Intake: 13:15 IV: 110ml; Total: 110ml. Outcome: 14:14 Discharge ordered by MD. [facility] 14:23 Discharged to home via wheelchair, with family. 14:23 Condition: stable 14:23 Discharge instructions given to patient, family, Instructed on discharge instructions, follow up and referral plans. medication usage, Demonstrated understanding of instructions, follow-up care, medications, Prescriptions given X 2. 14:24 Patient left the ED. Signatures: Dispatcher [employer] EDMS Pranay Daly PA PA jmm Rivera, Maria mr Quilty, Betty bq Williams, Irene, Anatoliy Robertson RN, RN RN hj Martinez, Maria [facility]
== END 2018-02-21 14:24 | disposition home or self-care (01) ==
LOC: ER 10:14
DX: G40.802 Other epilepsy, not intractable, without status epilepticus (principal); F43.10 Post-traumatic stress disorder, unspecified; F32.9 Major depressive disorder, single episode, unspecified; Z88.0 Allergy status to penicillin; Z88.1 Allergy status to other antibiotic agents; Z88.8 Allergy status to other drugs, medicaments and biological substances; Z91.048 Other nonmedicinal substance allergy status
CPT/HCPCS: 36415; 49427; 70450; 75809; 80048; 80076; 80307; 81003; 81015; 81025; 82150; 83690; 85025; 87086; 87088; 96365; 96366; 99284; J1953

== ENCOUNTER 2018-05-25 14:27 | Emergency (ER) | payer SELFPAY ==
--- OUTSIDE RECORDS SUMMARY | 2018-05-25 14:33 | XMS REPORT | Continuity of Care Document ---
:1995 Author Organization Interface Problems Problem Status Onset Classification Date Comments Source Date Reported Discharge 07/16/20 07/19/2016 Diagnosis: Acute [address] [place] [address] cervical sprain OTHER Active 07/15/20 [facility] [place] POSSIBLE Active 07/11/20 [facility] MALFUNCTION [facility] Medical [facility] HEADACHE Active 07/11/[address] [place] Resolved Problem 07/19/2016 malformation, [facility], type II [facility] Hydrocephalus Resolved Problem 07/19/2016 [facility] Depression Resolved Problem 07/19/2016 [facility] PTSD (<span Resolved Problem 07/19/2016 ID="[id number] [facility] ">Confirmed</spa H [place] n>) [facility] PTSD (<span Resolved Problem 07/19/2016 ID="[id number] [facility] ">Confirmed</spa H [place] n>) [facility] HEADACHE Active [facility] [place] [facility] Medications Medication Details Route Status Patient Ordering Order Source Instructions Provider Date Ketorolac 60 mg, Route: No Longer IM, Drug form: [facility] 2015 [facility] INJ, ONCE, Dosing Weight 84.545, kg, Priority: STAT, Start date: 07/15/16 23:21:00 ANALYSIS TESTER, Stop date: 07/15/16 23:21:00 ANALYSIS TESTER Valium 5 mg, Route: No Longer IM, Drug form: Active 2015 [facility] INJ, ONCE, Dosing Weight 84.545, kg, Priority: STAT, Start date: 07/15/16 23:21:00 ANALYSIS TESTER, Stop date: 07/15/16 23:21:00 ANALYSIS TESTER Ativan 1 mg, 0.5 mL, No Longer [facility] Route: IVP, Active [facility] Medical Drug form: INJ, Center ONCE, Dosing Weight 84.545, kg, PRN Anxiety, Start date: 07/13/16 23:15:00 CSTNotes: (Same as: Ativan) nystatin 1 appl, Route: No Longer [facility] topical 100,000 TOP, TID, Drug Active 2015 Medical units/g cream form: CRM, Center Start date: 07/13/16 17:00:00 ANALYSIS TESTER, Duration: 30 day, Stop date: 08/12/16 13:00:00 CSTNotes: (Same as:Mycostatin, Nilstat) For external use only. Nystatin [id number] 1 appl, Route: Inactive [facility] UNT/ML / TOP, TID, Drug 2015 Medical Triamcinolone form: [facility] [place] Acetonide 1 Start date: MG/ML Topical 07/13/16 Cream 9:00:00 ANALYSIS TESTER, Duration: 30 day, Stop date: 08/11/16 17:00:00 ANALYSIS TESTER Sodium Chloride 250 mL, 250 Inactive [facility] 0.154 MEQ/ML ml/hr, Infuse 2015 Medical Injectable Over: 1 hr, [place] Solution Route: IV, 250, Drug form: INJ, ONCE, Priority: STAT, Dosing Weight 84.545 kg, Start date: 07/12/16 16:18:00 ANALYSIS TESTER, Duration: 1 doses or times, Stop date: 07/12/16 16:18:00 ANALYSIS TESTER Promethazine 12.5 mg, 0.5 No Longer [facility] mL, Route: Active 2015 Medical IVPB, Drug Center form: INJ, Q4H, Dosing Weight 84.545, kg, PRN as needed for nausea/vomiting , Start date: 07/12/16 16:17:00 ANALYSIS TESTER, Duration: 30 day, Stop date: 08/11/16 16:16:00 CSTNotes: Do not give IV push. (Same as: Phenergan) Docusate 100 mg, 1 cap, No Longer [facility] Route: PO, Drug Active 2015 Medical form: CAP, Center Q12H, Dosing Weight 84.545, kg, Start date: 07/12/16 9:00:00 ANALYSIS TESTER, Duration: 30 day, Stop date: 08/10/16 21:00:00 CSTNotes: (Same as: Colace) (Do Not Crush) sennosides, MCFP 8.6 mg, 1 tab, No Longer [place] Route: PO, Drug Active 2015 Medical Form: TAB, Center Dosing Weight 84.545, kg, Q12H, Start date: 07/12/16 9:00:00 ANALYSIS TESTER, Duration: 30 day, Stop date: 08/10/16 21:00:00 CSTNotes: (Same as: Senokot) Saline Flush 10 ml, Route: No Longer [place] 0.9% IVP, Drug Form: Active 2015 Medical INJ, Dosing Center Weight 84.545, kg, Q12H, Start date: 07/12/16 9:00:00 ANALYSIS TESTER, Duration: 30 day, Stop date: 08/10/16 21:00:00 [...] Pain Score 1-3, Start date: 07/12/16 7:14:00 ANALYSIS TESTER, Duration: 30 day, Stop date: 08/11/16 7:13:00 [...] Abnormal Lab Result, Start date: 07/11/16 22:18:00 ANALYSIS TESTER, Duration: 30 day, Stop date: 08/10/16 22:17:00 [...] 50% 25 gm, 50 mL, No Longer [facility] Syringe Route: IVP, Active 2015 Medical Drug Form: INJ, Center Dosing Weight 84.545, kg, PRN, PRN Abnormal Lab Result, Start date: 07/11/16 22:18:00 ANALYSIS TESTER, Duration: 30 day, Stop date: 08/10/16 22:17:00 ANALYSIS TESTER Bisacodyl 10 mg, 1 supp, No Longer [facility] Route: MD, Drug Active 2015 Medical form: SUPP, Center Daily, Dosing Weight 84.545, kg, PRN Constipation, Start date: 07/11/16 22:18:00 ANALYSIS TESTER, Duration: 30 day, Stop date: 08/10/16 22:17:00 CSTNotes: (Same As: Dulcolax, Bisco-Lax) Saline Flush 10 ml, Route: No Longer [facility] 0.9% IVP, Drug Form: Active 2015 Medical INJ, Dosing Center Weight 84.545, kg, PRN, PRN Line Flush, Start date: 07/11/16 22:18:00 ANALYSIS TESTER, Duration: 30 day, Stop date: 08/10/16 22:17:00 CSTNotes: (Same as: BD Posiflush) Ondansetron 4 mg, 2 mL, No Longer [facility] Route: IVP, Active 2015 Medical Drug form: INJ, Center Q8H, Dosing Weight 84.545, kg, PRN Nausea & Vomiting, Start date: 07/11/16 22:18:00 ANALYSIS TESTER, Duration: 30 day, Stop date: 08/10/16 22:17:00 CSTNotes: (Same as: Leeanne) MEDICATION WASTE Product Size: 4 mg Product Wasted: _0__ mg Acetaminophen 1 tab, Route: No Longer [place] 325 MG / PO, Drug Form: Active 2016 Medical Hydrocodone TAB, Dosing Center Bitartrate 10 Weight 84.545, MG Oral Tablet kg, Q4H, PRN Pain Score 4-6, Start date: 07/11/16 22:18:00 ANALYSIS TESTER, Duration: 30 day, Stop date: 08/10/16 22:17:00 CSTNotes: Do not exceed 4gm/day of acetaminophen. (Same as: [place] 325/10) Acetaminophen 1 tab, Route: No Longer [place] 325 MG / PO, Drug Form: Active 2016 Medical Hydrocodone TAB, Dosing Center Bitartrate 5 MG Weight 84.545, Oral Tablet kg, Q4H, PRN Pain Score 1-3, Start date: 07/11/16 22:18:00 ANALYSIS TESTER, Duration: 30 day, Stop date: 08/10/16 22:17:00 CSTNotes: (Same as: [place] 325/5) Do not exceed 4gm/day of acetaminophen. Sodium Chloride 1,000 mL, Rate: No Longer [place] 0.154 MEQ/ML 75 ml/hr, Active 2015 Medical Injectable Infuse over: Center Solution 13.3 hr, Route: IV, Dosing Weight 84.545 kg, Total Volume: 1,000, Start date: 07/11/16 22:18:00 ANALYSIS TESTER, Duration: 30 day, Stop date: 08/10/16 22:17:00 ANALYSIS TESTER Reglan 10 mg, 2 mL, Inactive [place] Route: IVP, 2015 Medical Drug form: INJ, Center ONCE, Dosing Weight 84.545, kg, Priority: STAT, Start date: 07/11/16 20:59:00 ANALYSIS TESTER, Stop date: 07/11/16 20:59:00 CSTNotes: (Same as: Reglan) Sodium Chloride 1,000 mL, 1,000 Inactive [place] 0.154 MEQ/ML ml/hr, Infuse 2016 Medical Injectable Over: 1 hr, Center Solution Route: IV, 1,000, Drug form: INJ, ONCE, Priority: STAT, Dosing Weight 84.545 kg, Start date: 07/11/16 20:59:00 ANALYSIS TESTER, Duration: 1 doses or times, Stop date: 07/11/16 20:59:00 ANALYSIS TESTER Acetaminophen 1,000 mg, 2 Inactive 07/12/ [facility] tab, Route: PO, 2015 Medical Drug form: TAB, Center ONCE, Dosing Weight 84.545, kg, Priority: STAT, Start date: 07/11/16 20:59:00 ANALYSIS TESTER, Stop date: 07/11/16 20:59:00 CSTNotes: Max acetaminophen 4000 mg/day (4 gm/day). (Same as: Tylenol Extra Strength) Allergies, Adverse Reactions, Alerts Substance Category Reaction Severity Reaction Status Date Comments Source type Reported amoxicillin Assertion Drug Active MH allergy [facility] LaMICtal Assertion Drug Active [facility] allergy [facility] Medical Tape Assertion Drug Active [facility] allergy [facility] penicillins Assertion Drug Active [facility] allergy [facility] Immunizations Immunization Date Given Site Status Last Updated Comments Source Results Order Name Results Value Reference Date Interpretation Comments Source Range Brain Brain shunt Clinical Indication:21 years Female with Pain and swelling 07/15 - shunt series DX /2015 - [facility] series DX Comparison: Shunt study 07/12/2016 Read by: Scot Saenz MD Dictated Date/time: 07/15/16 23:38 FINDINGS: Electronically Signed by: Scot Saenz MD 07/15/16 23:41 FINAL REPORT Radiographs of the right MATERIALS MANAGEMENT MANAGER shunt obtained from the skull to the abdomen. Unchanged appearance of the MATERIALS MANAGEMENT MANAGER shunt, which goes from the right lateral ventricle along the right neck, traverses the right upper chest to the left lower chest, and terminates in the left upper quadrant. No discontinuity of the MATERIALS MANAGEMENT MANAGER shunt. 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 IMPRESSION: Unchanged appearance of right MATERIALS MANAGEMENT MANAGER shunt. No discontinuity of the shunt catheter or other significant radiographic abnormality. Brain w/wo Brain w/wo Exam: MRI brain without and with contrast. 07/13 - [facility] contrast contrast MRI /2015 - Medical [...] changes of suboccipital decompression are evident. Brain wo Brain wo Exam: MRI brain without and with contrast. 07/13 - [facility] contrast contrast MRI /2015 - Medical [...] CSF 34 mg/dL 15 - 45 07/13 [facility] FLUIDS [facility] BODY Color CSF Colorless Colorless 07/13 [place] FLUIDS [facility] (07/13/16 7:35 AM) Center BODY Clarity CSF Clear Clear 07/13 [facility] FLUIDS [facility] (07/13/16 7:35 AM) Center BODY Tube Num CSF xxxxxxx 07/13 [place] FLUIDS [facility] (07/13/16 7:35 AM) Center BODY RBC CSF 0 /mm3 0 - 03 07/13 [facility] FLUIDS [facility] BODY Supernat CSF Colorless Colorless 07/13 [place] FLUIDS [facility] (07/13/16 7:35 AM) Center BODY WBC CSF 1 /mm3 0 - 53 07/13 [facility] FLUIDS [facility] BODY Glucose CSF 56 mg/dL 45 - 80 07/13 [facility] FLUIDS /2015 [facility] IMMUNOLOGY PE Interp CSF 07/13 [facility] protein [facility] electropho [place] resis did not reveal evidence of an oligoclona l process in the RIGGER UP. The CSF IgG index is within the reference range indicating that there is no elevation in intracereb ral IgG synthesis. There is also no evidence of increased permeabili ty of the blood brain barrier based on the CSF/serum albumin ratio.The electronic medical record has been reviewed for relevant history.I have personally reviewed the test results and concur with the resident's interpreta tion.CPT: [id number] IMMUNOLOGY Description The gel 07/13 [facility] CSF demonstrat [facility] appropriat e resolution of the main protein bands. The gamma region shows continuous distributi on of proteins both in the CSF and in the serum. No oligoclona l bands are detected. IMMUNOLOGY IgG (CPE) 1010 mg/dL 694 - 1618 07/13 [facility] IMMUNOLOGY Alb (CPE) 4100.0 3400.0 - 07/13 [facility] mg/dL 5000.0 [facility] IMMUNOLOGY IgG Lvl CSF 1.7 mg/dL 2.0 - 4.0 07/13 [facility] IMMUNOLOGY Alb CSF 14.7 mg/dL 14.0 - 07/13 [facility] (CPE) 25.0 [facility] IMMUNOLOGY IgG Index 0.5 mg/dL 0.3 - 0.7 07/13 [facility] CHEM PANEL eGFR 128 07/13 Result Comment: The eGFR is calculated using the CKD-EPI formula. In most young, healthy individuals the eGFR will be >90 mL/ min/1.73m2. The eGFR declines with age. An eGFR of 60-89 may be normal in [facility] mL/min/1.7 some populations, particularly the elderly, for whom the CKD-EPI formula has not been extensively validated. Use of the eGFR is not recommended in the following populations: [address] Individuals with unstable creatinine concentrations, including [...] Lvl 8.8 mg/dL 8.5 - 10.5 07/13 [facility] CHEM PANEL CO2 23 meq/L 24 - 32 07/13 [facility] CHEM PANEL Chloride Lvl 108 meq/L 95 - 109 07/13 [facility] CHEM PANEL Creatinine 0.61 mg/dL 0.50 - 07/13 [facility] Lvl 1.40 [facility] CHEM PANEL Sodium Lvl 142 meq/L 135 - 145 07/13 [facility] CHEM PANEL BUN 7 mg/dL 7 - 22 07/13 [facility] CHEM PANEL Potassium 3.9 meq/L 3.5 - 5.1 07/13 [facility] Lvl /2015 [facility] CHEM PANEL Glucose Lvl 88 mg/dL 70 - 99 07/13 [facility] CHEM PANEL AGAP 14.9 meq/L 10.0 - 07/13 20.0 [facility] HEMATOLOGY Lymphocytes 37.9 % 20.0 - 07/13 40.0 [facility] HEMATOLOGY Segs 52.1 % 45.0 - 07/13 75.0 [facility] HEMATOLOGY Monocytes 7.3 % 2.0 - 12.0 07/13 [facility] HEMATOLOGY Basophils 0.8 % 0.0 - 1.0 07/13 [facility] HEMATOLOGY Eosinophils 1.9 % 0.0 - 4.0 07/13 [facility] HEMATOLOGY Segs-Bands # 3.8 K/CMM 1.5 - 8.1 07/13 [facility] HEMATOLOGY Eosinophils 0.1 K/CMM 0.0 - 0.5 07/13 [facility] HEMATOLOGY Monocytes # 0.5 K/CMM 0.0 - 0.8 07/13 [facility] HEMATOLOGY Lymphocytes 2.7 K/CMM 1.0 - 5.5 07/13 [facility] HEMATOLOGY Basophils # 0.1 K/CMM 0.0 - 0.2 07/13 [facility] HEMATOLOGY RBC 4.53 M/CMM 4.20 - 07/13 5.40 [facility] HEMATOLOGY WBC 7.2 K/CMM 3.7 - 10.4 07/13 [facility] HEMATOLOGY Hct 38.5 % 36.0 - 07/13 48.0 [facility] HEMATOLOGY Hgb 13.0 g/dL 12.0 - 07/13 16.0 [facility] HEMATOLOGY MCHC 33.9 g/dL 32.0 - 07/13 36.0 [facility] HEMATOLOGY MCH 28.8 pg 27.0 - 07/13 31.0 [facility] HEMATOLOGY RDW 14.0 % 11.5 - 07/13 14. [facility] HEMATOLOGY MPV 9.2 fL 7.4 - 10.4 07/13 [facility] HEMATOLOGY Platelet 283 K/CMM 133 - 450 07/13 [facility] HEMATOLOGY MCV 84.9 fL 80.0 - 07/13 [place] 98.0 /2015 [facility] HEMATOLOGY INR 0.96 0.85 - 07/13 [place] 1.17 /2015 [facility] HEMATOLOGY PTT 31.9 s 22.9 - 07/13 [place] 35.8 /2015 [facility] HEMATOLOGY PT 13.0 s 12.0 - 07/13 [facility] 14.7 [facility] Brain wo Brain wo EXAM: CT HEAD WITHOUT CONTRAST 07/13 [facility] contrast contrast CT /2015 - [facility] CT Center DATE: 07/13/2016 Read by: Marcos Jo MD Dictated Date/time: 07/13/16 06:58 Electronically Signed by: Marcos Jo MD 07/13/16 07:01 FINAL REPORT INDICATION: 21 years old Female patient with history of MATERIALS MANAGEMENT MANAGER shunt placement , now complaining of headache. TECHNIQUE: Multiple axial images were obtained through the head from vertex to the skull base. Axial bone algorithm reconstruction images are provided. COMPARISON: Prior CT Scan of the head dated 07/12/2016 147 AM ANALYSIS TESTER DISCUSSION: Again identified is a right parietal approach MATERIALS MANAGEMENT MANAGER shunt catheter with distal tip lies within [...] adverse change. 2. Stable right parietal approach MATERIALS MANAGEMENT MANAGER shunt catheter with adequately decompressed ventricular system. 3. 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 CARDIAC Troponin-T null 0.000 - 07/12 [facility] ENZYMES 0.100 [facility] CARDIAC Total CK 33 unit/L 12 - 191 07/12 [facility] ENZYMES /2015 [facility] MYOGLOBIN Myoglobin 35 ng/mL 25 - 72 07/12 [place] /[address] [place] [address] Chest Chest 1view EXAM: XR CHEST 1 VIEW 07/12 - [facility] 1view DX DX /2015 [facility] DATE: 07/12/2016 4:10 PM ANALYSIS TESTER Read by: Albert Vail MD Dictated Date/time: 07/12/16 16:40 Electronically Signed by: Albert Vail 07/12/16 16:42 FINAL REPORT INDICATION: Chest pain COMPARISON: Yesterday TECHNIQUE: AP chest FINDINGS: Abandoned and calcified discontinuous MATERIALS MANAGEMENT MANAGER shunt tubing is redemonstrated over the right lower neck and anterior chest, coursing over the upper abdomen. Additional MATERIALS MANAGEMENT MANAGER shunt tubing is seen over t he right neck, extending over the midline chest and left upper quadrant; distal tubing is not well seen. Stable cardiomediastinal silhouette. No new pulmonary or pleural based abnormalities. IMPRESSION: No significant change. Brain Brain shunt EXAM: XR SHUNT SERIES 07/12 - [place] shunt series - Medical series DX This report was dictated by a Gas Charger/Fellow. I have personally reviewed the images as Center well as the Resident's interpretation and agree with the findings. DATE: 07/12/2016 7:03 AM ANALYSIS TESTER Read by: Siva Lanza MD Resident: Siva [...] the L3 level. IMPRESSION: 1. Right programmable MATERIALS MANAGEMENT MANAGER shunt with unremarkable appearance. 2. 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 Skull 1 Skull 1 view EXAM: XR SKULL 1 VIEW 07/12 - [place] view DX DX /2015 - Medical This report was dictated by a Gas Charger/Fellow. I have personally reviewed the images as Center well as the Resident's interpretation and agree with the findings. DATE: 07/12/2016 7:03 AM ANALYSIS TESTER Read by: Siva Lanza MD Resident: Siva [...] DRUG U Phencyc Negative Negative 07/12 SCREEN [facility] [place] (07/12/16 12:39 AM) DRUG U Opiate Scr Negative Negative 07/12 [facility] (07/12/16 12:39 AM) DRUG U Propoxyph Negative Negative 07/12 [facility] (07/12/16 12:39 AM) DRUG U Methadone Negative Negative 07/12 [facility] (07/12/16 12:39 AM) DRUG UDS Note See Note 07/12 [facility] (07/12/16 12:39 AM) DRUG U Benzodia Negative Negative 07/12 [facility] (07/12/16 12:39 AM) DRUG U Amph Scr Negative Negative 07/12 [facility] (07/12/16 12:39 AM) DRUG U Cannab Scr Negative Negative 07/12 [facility] (07/12/16 12:39 AM) DRUG U Cocaine Negative Negative 07/12 [facility] (07/12/16 12:39 AM) DRUG U Tori Scr Negative Negative 07/12 [facility] [place] (07/12/16 12:39 AM) HEMATOLOGY Platelet 306 K/CMM 133 - 450 07/12 [facility] HEMATOLOGY RDW 13.5 % 11.5 - 07/12 [place] 14. [facility] HEMATOLOGY MPV 9.3 fL 7.4 - 10.4 07/12 [facility] HEMATOLOGY RBC 4.46 M/CMM 4.20 - 07/12 [place] 5.40 /2015 [facility] HEMATOLOGY Hgb 12.6 g/dL 12.0 - 07/12 [place] 16.0 /2015 [facility] HEMATOLOGY Hct 37.4 % 36.0 - 07/12 [place] 48.0 /2015 [facility] HEMATOLOGY MCV 83.9 fL 80.0 - 07/12 [place] 98.0 /2015 [facility] HEMATOLOGY WBC 9.4 K/CMM 3.7 - 10.4 07/12 /2015 [facility] HEMATOLOGY MCH 28.3 pg 27.0 - 07/12 [place] 31.0 /2015 [facility] HEMATOLOGY MCHC 33.8 g/dL 32.0 - 07/12 [facility] 36.0 [facility] HEMATOLOGY PTT 33.7 s 22.9 - 07/12 [place] 35.8 /2015 [facility] HEMATOLOGY INR 1.02 0.85 - 07/12 [place] 1.17 [facility] HEMATOLOGY PT 13.6 s 12.0 - 07/12 [place] 14.7 /2015 [facility] HEMATOLOGY Segs-Bands # 5.5 K/CMM 1.5 - 8.1 07/12 [facility] HEMATOLOGY Monocytes # 0.6 K/CMM 0.0 - 0.8 07/12 [facility] HEMATOLOGY Lymphocytes 3.0 K/CMM 1.0 - 5.5 07/12 [place] /2015 [facility] HEMATOLOGY Basophils # 0.1 K/CMM 0.0 - 0.2 07/12 [facility] HEMATOLOGY Eosinophils 0.1 K/CMM 0.0 - 0.5 07/12 [place] /2016 [facility] HEMATOLOGY Basophils 0.9 % 0.0 - 1.0 07/12 /2015 [facility] HEMATOLOGY Segs 58.7 % 45.0 - 07/12 [place] 75.0 [facility] HEMATOLOGY Lymphocytes 32.5 % 20.0 - 07/12 [place] 40.0 /2016 [facility] HEMATOLOGY Monocytes 6.5 % 2.0 - 12.0 07/12 [facility] HEMATOLOGY Eosinophils 1.4 % 0.0 - 4.0 07/12 [facility] URINE AND UA WBC 1 /HPF 0 - 5 07/12 [facility] URINE AND Micro? Not Indicated 07/12 [facility] *NA* [place] (07/12/16 12:39 AM) URINE AND UA <=1.0 0.1 - 1.0 07/12 [facility] Urobilinogen mg/dL [facility] URINE AND UA Protein Negative Negative 07/12 [facility] mg/dL mg/dL [facility] URINE AND UA Glucose Negative Negative 07/12 [facility] mg/dL mg/dL [facility] URINE AND UA Turbidity Clear Clear 07/12 [facility] (07/12/16 12:39 AM) [place] URINE AND UA Spec Grav 1.011 <=1.030 07/12 [facility] URINE AND UA pH 6.5 5.0 - 8.0 07/12 [facility] URINE AND UA Color Yellow Yellow 07/12 [facility] *NA* [place] (07/12/16 12:39 AM) URINE AND UA Sq Epi Moderate Few /LPF 07/12 [facility] STOOL /LPF /2015 [facility] URINE AND UA Leuk Est Negative Negative 07/12 [facility] (07/12/16 12:39 AM) [place] URINE AND UA Ketones Negative Negative 07/12 [facility] mg/dL mg/dL [facility] URINE AND UA Bili Negative Negative 07/12 [facility] *NA* [place] (07/12/16 12:39 AM) URINE AND UA Blood Negative Negative 07/12 [facility] (07/12/16 12:39 AM) [place] URINE AND UA Nitrite Negative Negative 07/12 [facility] (07/12/16 12:39 AM) [place] URINE CHEM U Preg Negative Negative 07/12 [facility] (07/12/16 12:39 AM) Center BLOOD BANK Antibody Negative 07/12 [facility] RESULTS Scrn [facility] (07/11/16 11:50 PM) [place] BLOOD BANK ABO/Rh A POS 07/12 [facility] RESULTS [facility] CHEM PANEL Glucose Lvl 93 mg/dL 70 - 99 07/12 [facility] CHEM PANEL AGAP 15.5 meq/L 10.0 - 07/12 [place] 20.0 [facility] CHEM PANEL eGFR 113 07/12 Result Comment: The eGFR is calculated using the CKD-EPI formula. In most young, healthy individuals the eGFR will be >90 mL/ min/1.73m2. The eGFR declines with age. An eGFR of 60-89 may be normal in [facility] mL/min/1. some populations, particularly the elderly, for whom the CKD-EPI formula has not been extensively validated. Use of the eGFR is not recommended in the following populations: [address] Individuals with unstable creatinine concentrations, including [...] Lvl 142 meq/L 135 - 145 07/[address] CHEM PANEL Creatinine 0.75 mg/dL 0.50 - 07/12 [facility] 1.40 [facility] CHEM PANEL BUN 6 mg/dL 7 - 22 07/[address] CHEM PANEL Calcium Lvl 8.8 mg/dL 8.5 - 10.5 07/[address] CHEM PANEL CO2 26 meq/L 24 - 32 07/[address] CHEM PANEL Potassium 3.5 meq/L 3.5 - 5.1 07/12 [facility] CHEM PANEL Chloride Lvl 104 meq/L 95 - 109 07/[address] Brain wo Brain wo EXAM: CT HEAD WITHOUT CONTRAST 07/12 - [facility] contrast contrast CT /2015 - [facility] DATE: 07/12/2016 147 AM ANALYSIS TESTER Read by: Marcos Jo MD Dictated Date/time: 07/12/16 10:11 Electronically Signed by: Marcos Jo MD 07/12/16 10:22 FINAL REPORT INDICATION: 21 years old Female patient with history of MATERIALS MANAGEMENT MANAGER shunt placement , now complaining of headache. TECHNIQUE: Multiple axial images were obtained through the head from vertex to the skull base. Axial bone algorithm reconstruction images are provided. COMPARISON: Prior outside hospital CT Scan of the head dated 07/11/2016 DISCUSSION: Again identified is a right parietal approach MATERIALS MANAGEMENT MANAGER shunt catheter with distal tip lies within [...] adverse change. 2. Stable right parietal approach MATERIALS MANAGEMENT MANAGER shunt catheter with adequately decompressed ventricular system. 3. 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 Chest Chest 1view EXAM: XR CHEST 1 VIEW 07/11 [facility] 1view DX DX /2015 - [facility] This report was dictated by a Gas Charger/Fellow. I have personally reviewed the images as Center well as the Resident's interpretation and agree with the findings. DATE: 07/11/2016 2230 hours Read by: Macy Campos MD Resident: Macy Campos MD Dictated Date/time: 07/11/16 22:49 Electronically Signed by: Aron Pacheco 07/12/16 08:18 FINAL REPORT INDICATION: Mass COMPARISON: Chest radiograph 07/11/2016 TECHNIQUE: AP chest FINDINGS: Lines and tubes: Abandoned and calcified discontinuous MATERIALS MANAGEMENT MANAGER shunt tubing is redemonstrated over the right lower neck and anterior chest, coursing over the upper abdomen. Additional MATERIALS MANAGEMENT MANAGER shunt tubing is seen over the right [...] No acute cardiopulmonary abnormality. 2. Partially visualized MATERIALS MANAGEMENT MANAGER shunt tubing as discussed above. Vital Signs Vital Sign Value Date Comments Source Respitory Rate 16 07/16/2016 [facility] Systolic (mm Hg) 134 07/16/2016 [facility] Diastolic (mm Hg) 63 07/16/2016 [facility] Temperature Oral (F) 98.2 F 07/16/2016 [facility] Temperature Oral (F) 98.6 F 07/16/2016 [facility] Respitory Rate 14 07/16/2016 [facility] Diastolic (mm Hg) 81 07/16/2016 [facility] Systolic (mm Hg) 131 07/16/2016 [facility] Weight 84.545 07/16/2016 [facility] Respitory Rate 20 07/16/2016 [facility] Heart Rate 110 07/16/2016 [facility] Temperature Oral (F) 98.8 F 07/16/2016 [facility] BMI Calculated 35.22 07/16/2016 [facility] Height 154.94 cm 07/16/2016 [facility] Systolic (mm Hg) 126 07/16/2016 [facility] Diastolic (mm Hg) 87 07/16/2016 [facility] Respitory Rate 12 07/14/2016 [facility] Temperature Oral (F) 97.9 F 07/14/2016 [facility] Systolic (mm Hg) 111 07/14/2016 [facility] Diastolic (mm Hg) 72 07/14/2016 [facility] Respitory Rate 16 07/14/2016 [facility] Systolic (mm Hg) 117 07/14/2016 [facility] Diastolic (mm Hg) 79 07/14/2016 [facility] Respitory Rate 13 07/14/2016 [facility] Systolic (mm Hg) 110 07/14/2016 [facility] Diastolic (mm Hg) 61 07/14/2016 [facility] Heart Rate 84 07/14/2016 [facility] Heart Rate 75 07/14/2016 [facility] Heart Rate 81 07/14/2016 [facility] Temperature Oral (F) 98.0 F 07/13/2016 [facility] Temperature Oral (F) 98.1 F 07/13/2016 [facility] Weight 84.545 07/12/2016 [facility] Weight 84.545 07/12/2016 [facility] Height 152.4 cm 07/12/2016 [facility] BMI Calculated 36.4 07/12/2016 [facility] Encounters Location Location Encounter Encounter Reason Attending ADM DC Status Source Details Type Number For Provider Date Date Visit [facility] [id number] [place] 07/12 07/14 Patsy Decker /2015 [facility] [id number] [place] 07/16 07/16 [facility] Kenyon Chung /2015 [facility] Procedures Procedure Code Date Perfomer Comments Source Creation of MATERIALS MANAGEMENT MANAGER [id number] [facility] shunt Creation of MATERIALS MANAGEMENT MANAGER [id number] [facility]
[2018-05-25] MEDS ORDERED: HYDROCODONE/APAP 5/325 MG TAB ONE (15:26)
--- NOTE | 2018-05-25 15:44 | RAD REPORT ---
EXAM DESCRIPTION: CT - Head C Spine Mpr Wo Con - 05/25/2018 3:28 pm CLINICAL HISTORY: Head and neck injury status post fall. Head and neck pain. Seizure COMPARISON: May 2017 TECHNIQUE: Computed axial tomography of the head and cervical spine was obtained. Sagittal and coronal reconstruction was performed. All CT scans are performed using dose optimization technique as appropriate and may include automated exposure control or mA/KV adjustment according to patient size. FINDINGS: Suboccipital craniotomy is noted. 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 HEAVY EQUIPMENT ENGINE MECHANIC shunt remains in place without hydrocephalus. An intracranial bleed is not seen. An extra-axial fluid collection is not noted.Fluid within the visu alized sinuses and mastoids is not seen A cervical fracture is not visualized. No dislocation is noted. IMPRESSION: No acute intracranial abnormality is seen. A cervical fracture is not visualized. If the patient continues to have symptoms to suggest intracra nial /spinal cord pathology then MRI would be recommended
--- NOTE | 2018-05-25 17:26 | ER ---
Nurse's Notes [facility] Name: Shanna Estrella Age: 23 yrs Sex: Female : 1995 Arrival Date: 05/25/2018 Time: 14:30 Bed 24 Private MD: Diagnosis: Epilepsy and recurrent seizures Presentation: 05/25 14:53 Presenting complaint: Patient states: I HAD A SEIZURE AND FELL AND HIT MY HEAD EARLIER. bp Transition of care: patient was not received from another setting of care. Onset of symptoms was May 25, 2018 at 01:30. Risk Assessment: Do you want to hurt yourself or someone else? Patient reports no desire to harm self or others. Initial Sepsis Screen: Does the patient meet any 2 criteria? No. Patient's initial sepsis screen is negative. Does the patient have a suspected source of infection? No. Patient's initial sepsis screen is negative. Care prior to arrival: None. 14:53 Method Of Arrival: Ambulatory bp 14:53 Acuity: ELI 3 bp Triage Assessment: 14:54 General: Appears in no apparent distress. comfortable, obese, Behavior is calm, bp cooperative, appropriate for age. Pain: Complains of pain in head. Neuro: Level of Consciousness is awake, alert, obeys commands, Oriented to person, place, time, situation, Appropriate for age. 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 - Social history:: Smoking status: Patient uses tobacco products, denies chronic smoking, but will smoke occasionally. - Ebola Screening: : Patient negative for fever greater than or equal to 101.5 degrees Fahrenheit, and additional compatible Ebola Virus Disease symptoms Patient denies exposure to infectious person Patient denies travel to an Ebola-affected area in the 21 days before illness onset No symptoms or risks identified at this time. Screenin:50 Abuse screen: Denies threats or abuse. Nutritional screening: No deficits noted. tw2 Tuberculosis screening: No symptoms or risk factors identified. Fall Risk None identified. Assessment: 15:00 General: Appears in no apparent distress. unkempt, Behavior is calm, cooperative, tw2 appropriate for age. Pain: Complains of pain in "headache". Neuro: Level of Consciousness is awake, alert, obeys commands, Oriented to person, place, time, situation. Cardiovascular: Denies chest pain, shortness of breath, Heart tones S1 S2 Patient's skin is warm and dry. Respiratory: Airway is patent Respiratory effort is even, unlabored, Respiratory pattern is regular, symmetrical, Breath sounds are clear bilaterally. GI: No signs and/or symptoms were reported involving the gastrointestinal system. Abdomen is round non-distended, Bowel sounds present X 4 quads. : No signs and/or symptoms were reported regarding the genitourinary system. EENT: No signs and/or symptoms were reported regarding the EENT system. Derm: No signs and/or symptoms reported regarding the dermatologic system. Musculoskeletal: Range of motion: intact in all extremities. 15:09 Reassessment: provider at bedside at this time. tw2 16:20 Reassessment: Patient appears in no apparent distress at this time. No changes from tw2 previously documented assessment. Patient and/or family updated on plan of care and expected duration. Pain level reassessed. Patient is alert, oriented x 3, equal unlabored respirations, skin warm/dry/pink. 17:10 Reassessment: Patient appears in no apparent distress at this time. No changes from tw2 previously documented assessment. Patient and/or family updated on plan of care and expected duration. Pain level reassessed. Patient is alert, oriented x 3, equal unlabored respirations, skin warm/dry/pink. Vital Signs: 14:55 BP 129 / 85; Pulse 118; Resp 18; Temp 97.1; Pulse Ox 99% ; Weight 78.02 kg; Height 5 bp ft. (152.40 cm); 16:20 BP 129 / 96; Pulse 95; Resp 17; Pulse Ox 97% on R/A; tw2 17:06 BP 115 / 92; Pulse 99; Resp 17; Pulse Ox 98% on R/A; tw2 14:55 Body Mass Index 33.59 (78.02 kg, 152.40 cm) bp Kelli Coma Score: 14:54 Eye Response: spontaneous(4). Verbal Response: oriented(5). Motor Response: obeys bp commands(6). Total: 15. ED Course: 14:30 Patient arrived in ED. as 14:54 Triage completed. bp 14:55 Arm band placed on right wrist. bp 14:58 Madison Laws, RN is Primary Nurse. tw2 14:59 Bed in low position. Call light in reach. Side rails up X2. Adult w/ patient. Pulse ox tw2 on. NIBP on. 14:59 Seizure precautions initiated. tw2 15:02 Jeancarlos Wilkerson MD is Attending Physician. gs 15:[address] via stretcher. nj 15:27 CT completed. Patient tolerated procedure well. Patient moved to radiology via ma stretcher. 15:28 CT Head C Spine In Process Unspecified. EDMS 16:16 X-ray completed. Patient tolerated procedure well. Patient moved back from radiology. jb2 16:16 Shuntogram XRAY In Process Unspecified. EDMS 17:25 Fady Pierre MD is Referral Physician. gs 17:35 No provider procedures requiring assistance completed. Patient did not have IV access tw2 during this emergency room visit. Administered Medications: 15:20 Drug: [place] 5 mg-325 mg 1 tabs Route: PO; tw2 17:35 Follow up: Response: No adverse reaction tw2 Outcome: 17:25 Discharge ordered by . gs 17:35 Discharged to home ambulatory, with significant other. tw2 17:35 Condition: stable 17:35 Discharge instructions given to patient, significant other, Instructed on discharge instructions, follow up and referral plans. Demonstrated understanding of instructions, follow-up care. 17:38 Patient left the ED. tw2 Signatures: Dispatcher [employer] EDMI Thomas Doherty jb2 Charlotte Benito Tara, BANG RN tw2 Chris Patrick Gregory, MD MD Ga Ellison RN RN bp
--- NOTE | 2018-05-25 17:27 | EDPHYS ---
Physician Documentation [facility] Name: Shanna Estrella Age: 23 yrs Sex: Female : 1995 Arrival Date: 05/25/2018 Time: 14:30 Bed 24 Private MD: ED Physician Jeancarlos Wilkerson HPI: 05/25 17:23 This 23 yrs old Female presents to ER via Ambulatory with complaints of gs Seizure. 17:23 The patient presents after having a single isolated seizure. Character of seizure(s): gs Loss of consciousness: Motor activity: generalized. Seizure onset: just prior to arrival. Context: the seizure(s) was witnessed, by family. Seizure Hx: Usual frequency: roughly every 2 week(s). Associated injury: Head/face: right hindu and left hindu. Current symptoms: Currently, the patient is not experiencing any symptoms, the patient feels back to baseline, headache, that is mild. The patient has experienced similar episodes in the past, several times. 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 - Social history:: Smoking status: Patient uses tobacco products, denies chronic smoking, but will smoke occasionally. - Ebola Screening: : Patient negative for fever greater than or equal to 101.5 degrees Fahrenheit, and additional compatible Ebola Virus Disease symptoms Patient denies exposure to infectious person Patient denies travel to an Ebola-affected area in the 21 days before illness onset No symptoms or risks identified at this time. ROS: 17:23 All other systems are negative. gs Exam: 17:23 Head/Face: Normocephalic, atraumatic. Eyes: Pupils equal round and reactive to light, gs extra-ocular motions intact. Lids and lashes normal. Conjunctiva and sclera are non-icteric and not injected. Cornea within normal limits. Periorbital areas with no swelling, redness, or edema. ENT: Nares patent. No nasal discharge, no septal abnormalities noted. Tympanic membranes are normal and external auditory canals are clear. Oropharynx with no redness, swelling, or masses, exudates, or evidence of obstruction, uvula midline. Mucous membranes moist. Neck: Trachea midline, no thyromegaly or masses palpated, and no cervical lymphadenopathy. Supple, full range of motion without nuchal rigidity, or vertebral point tenderness. No Meningismus. Chest/axilla: Normal chest wall appearance and motion. Nontender with no deformity. No lesions are appreciated. Cardiovascular: Regular rate and rhythm with a normal S1 and S2. No gallops, murmurs, or rubs. Normal PMI, no JVD. No pulse deficits. Respiratory: Lungs have equal breath sounds bilaterally, clear to auscultation and percussion. No rales, rhonchi or wheezes noted. No increased work of breathing, no retractions or nasal flaring. Abdomen/GI: Soft, non-tender, with normal bowel sounds. No distension or tympany. No guarding or rebound. No evidence of tenderness throughout. Back: No spinal tenderness. No costovertebral tenderness. Full range of motion. Skin: Warm, dry with normal turgor. Normal color with no rashes, no lesions, and no evidence of cellulitis. MS/ Extremity: Pulses equal, no cyanosis. Neurovascular intact. Full, normal range of motion. Neuro: Awake and alert, GCS 15, oriented to person, place, time, and situation. Cranial nerves II-XII grossly intact. Motor strength 5/5 in all extremities. Sensory grossly intact. Cerebellar exam normal. Normal gait. 17:23 Constitutional: The patient appears alert, awake. 17:23 Head/face: SHUNT BULB WORKING. Vital Signs: 14:55 BP 129 / 85; Pulse 118; Resp 18; Temp 97.1; Pulse Ox 99% ; Weight 78.02 kg; Height 5 bp ft. (152.40 cm); 16:20 BP 129 / 96; Pulse 95; Resp 17; Pulse Ox 97% on R/A; tw2 17:06 BP 115 / 92; Pulse 99; Resp 17; Pulse Ox 98% on R/A; tw2 14:55 Body Mass Index 33.59 (78.02 kg, 152.40 cm) bp Kelli Coma Score: 14:54 Eye Response: spontaneous(4). Verbal Response: oriented(5). Motor Response: obeys bp commands(6). Total: 15. MDM: 15:11 Patient medically screened. 17:23 Differential diagnosis: seizure. Data reviewed: vital signs, nurses notes. Response to treatment: the patient's symptoms have resolved after treatment, and as a result, I will discharge patient. 05/25 15:12 Order name: CT Head C Spine; Complete Time: 17:22 05/25 15:12 Order name: Shuntogram XRAY gs Administered Medications: 15:20 Drug: [place] 5 mg-325 mg 1 tabs Route: PO; tw2 17:35 Follow up: Response: No adverse reaction tw2 Disposition: 05/25/18 17:25 Discharged to Home. Impression: Epilepsy and recurrent seizures. - Condition is Stable. - Discharge Instructions: Seizure, Adult. - Family Work Release, Medication Reconciliation Form, Thank You Letter, Antibiotic Education, Prescription Opioid Use form. - Follow up: Fady Pierre MD; When: 2 - 3 days; Reason: Re-evaluation by your physician. Signatures: Dispatcher [employer] EDMS Madison Laws RN RN tw2 Jeancarlos Wilkerson MD MD Ga Ellison RN RN bp Corrections: (The following items were deleted from the chart) 17:38 17:25 05/25/2018 17:25 Discharged to Home. Impression: Epilepsy and recurrent seizures. tw2 Condition is Stable. Forms are Medication Reconciliation Form, Thank You Letter, Antibiotic Education, Prescription Opioid Use. Follow up: Fady Pierre; When: 2 - 3 days; Reason: Re-evaluation by your physician.
--- NOTE | 2018-05-25 17:57 | RAD REPORT ---
EXAM DESCRIPTION: RAD - Shuntogram - 05/25/2018 4:22 pm CLINICAL HISTORY: Seizure FINDINGS: Right SENIOR LIVING ADVISOR shunt extends into the right neck and chest. It is coiled within the upper abdome n. No kink or break is seen. Old shunt tubing is also noted.
== END 2018-05-25 17:38 | disposition home or self-care (01) ==
LOC: ER 14:27
DX: G40.802 Other epilepsy, not intractable, without status epilepticus (principal); Z72.0 Tobacco use; Z88.0 Allergy status to penicillin; Z88.1 Allergy status to other antibiotic agents; Z88.8 Allergy status to other drugs, medicaments and biological substances; Z91.048 Other nonmedicinal substance allergy status
CPT/HCPCS: 49427; 70450; 72125; 75809; 99284

== ENCOUNTER 2018-09-06 19:30 | Emergency (ER) | payer SELFPAY ==
--- OUTSIDE RECORDS SUMMARY | 2018-09-06 19:33 | XMS REPORT | Continuity of Care Document ---
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, [facility], type II [facility] Hydrocephalus Resolved Problem 07/19/2016 [facility] Depression Resolved Problem 07/19/2016 [facility] PTSD (<span Resolved Problem 07/19/2016 ID="[id number] [facility] ">Confirmed</spa H [place] n>) [facility] PTSD (<span Resolved Problem 07/19/2016 ID="[id number] [facility] ">Confirmed</spa H [place] n>) [facility] HEADACHE Active [facility] Medications Medication Details Route Status Patient Ordering Order Source Instructions Provider Date Ketorolac 60 mg, Route: No Longer IM, Drug form: Active 2015 [facility] INJ, ONCE, Dosing Weight 84.545, kg, Priority: STAT, Start date: 07/15/16 23:21:00 FRUIT PRESS OPERATOR, Stop date: 07/15/16 23:21:00 FRUIT PRESS OPERATOR Valium 5 mg, Route: No Longer IM, Drug form: Active 2015 [facility] INJ, ONCE, Dosing Weight 84.545, kg, Priority: STAT, Start date: 07/15/16 23:21:00 FRUIT PRESS OPERATOR, Stop date: 07/15/16 23:21:00 FRUIT PRESS OPERATOR Ativan 1 mg, 0.5 mL, No Longer [facility] Route: IVP, Active [facility] Medical Drug form: INJ, Center ONCE, Dosing Weight 84.545, kg, PRN Anxiety, Start date: 07/13/16 23:15:00 CSTNotes: (Same as: Ativan) nystatin 1 appl, Route: No Longer [facility] topical 100,000 TOP, TID, Drug Active 2015 Medical units/g cream form: CRM, Center Start date: 07/13/16 17:00:00 FRUIT PRESS OPERATOR, Duration: 30 day, Stop date: 08/12/16 13:00:00 CSTNotes: (Same as:Mycostatin, Nilstat) For external use only. Nystatin [id number] 1 appl, Route: Inactive [facility] UNT/ML / TOP, TID, Drug 2015 Medical Triamcinolone form: [facility] [place] Acetonide 1 Start date: MG/ML Topical 07/13/16 Cream 9:00:00 FRUIT PRESS OPERATOR, Duration: 30 day, Stop date: 08/11/16 17:00:00 FRUIT PRESS OPERATOR Sodium Chloride 250 mL, 250 Inactive [facility] 0.154 MEQ/ML ml/hr, Infuse 2015 Medical Injectable Over: 1 hr, [place] Solution Route: IV, 250, Drug form: INJ, ONCE, Priority: STAT, Dosing Weight 84.545 kg, Start date: 07/12/16 16:18:00 FRUIT PRESS OPERATOR, Duration: 1 doses or times, Stop date: 07/12/16 16:18:00 FRUIT PRESS OPERATOR Promethazine 12.5 mg, 0.5 No Longer [facility] mL, Route: Active 2015 Medical IVPB, Drug Center form: INJ, Q4H, Dosing Weight 84.545, kg, PRN as needed for nausea/vomiting , Start date: 07/12/16 16:17:00 FRUIT PRESS OPERATOR, Duration: 30 day, Stop date: 08/11/16 16:16:00 CSTNotes: Do not give IV push. (Same as: Phenergan) Docusate 100 mg, 1 cap, No Longer [facility] Route: PO, Drug Active 2015 Medical form: CAP, Center Q12H, Dosing Weight 84.545, kg, Start date: 07/12/16 9:00:00 FRUIT PRESS OPERATOR, Duration: 30 day, Stop date: 08/10/16 21:00:00 CSTNotes: (Same as: Colace) (Do Not Crush) sennosides, LONG-TERM 8.6 mg, 1 tab, No Longer [place] Route: PO, Drug Active 2015 Medical Form: TAB, Center Dosing Weight 84.545, kg, Q12H, Start date: 07/12/16 9:00:00 FRUIT PRESS OPERATOR, Duration: 30 day, Stop date: 08/10/16 21:00:00 CSTNotes: (Same as: Senokot) Saline Flush 10 ml, Route: No Longer [place] 0.9% IVP, Drug Form: Active 2015 Medical INJ, Dosing Center Weight 84.545, kg, Q12H, Start date: 07/12/16 9:00:00 FRUIT PRESS OPERATOR, Duration: 30 day, Stop date: 08/10/16 21:00:00 [...] Pain Score 1-3, Start date: 07/12/16 7:14:00 FRUIT PRESS OPERATOR, Duration: 30 day, Stop date: 08/11/16 7:13:00 [...] Abnormal Lab Result, Start date: 07/11/16 22:18:00 FRUIT PRESS OPERATOR, Duration: 30 day, Stop date: 08/10/16 22:17:00 [...] 50% 25 gm, 50 mL, No Longer [facility] Syringe Route: IVP, Active 2015 Medical Drug Form: INJ, Center Dosing Weight 84.545, kg, PRN, PRN Abnormal Lab Result, Start date: 07/11/16 22:18:00 FRUIT PRESS OPERATOR, Duration: 30 day, Stop date: 08/10/16 22:17:00 FRUIT PRESS OPERATOR Bisacodyl 10 mg, 1 supp, No Longer [facility] Route: AL, Drug Active 2015 Medical form: SUPP, Center Daily, Dosing Weight 84.545, kg, PRN Constipation, Start date: 07/11/16 22:18:00 FRUIT PRESS OPERATOR, Duration: 30 day, Stop date: 08/10/16 22:17:00 CSTNotes: (Same As: Dulcolax, Bisco-Lax) Saline Flush 10 ml, Route: No Longer [facility] 0.9% IVP, Drug Form: Active 2015 Medical INJ, Dosing Center Weight 84.545, kg, PRN, PRN Line Flush, Start date: 07/11/16 22:18:00 FRUIT PRESS OPERATOR, Duration: 30 day, Stop date: 08/10/16 22:17:00 CSTNotes: (Same as: BD Posiflush) Ondansetron 4 mg, 2 mL, No Longer [facility] [place] Route: IVP, Active 2015 Medical Drug form: INJ, Center Q8H, Dosing Weight 84.545, kg, PRN Nausea & Vomiting, Start date: 07/11/16 22:18:00 FRUIT PRESS OPERATOR, Duration: 30 day, Stop date: 08/10/16 22:17:00 CSTNotes: (Same as: Leeanne) MEDICATION WASTE Product Size: 4 mg Product Wasted: _0__ mg Acetaminophen 1 tab, Route: No Longer [place] 325 MG / PO, Drug Form: Active 2016 Medical Hydrocodone TAB, Dosing Center Bitartrate 10 Weight 84.545, MG Oral Tablet kg, Q4H, PRN Pain Score 4-6, Start date: 07/11/16 22:18:00 FRUIT PRESS OPERATOR, Duration: 30 day, Stop date: 08/10/16 22:17:00 CSTNotes: Do not exceed 4gm/day of acetaminophen. (Same as: [place] 325/10) Acetaminophen 1 tab, Route: No Longer [place] 325 MG / PO, Drug Form: Active 2016 Medical Hydrocodone TAB, Dosing Center Bitartrate 5 MG Weight 84.545, Oral Tablet kg, Q4H, PRN Pain Score 1-3, Start date: 07/11/16 22:18:00 FRUIT PRESS OPERATOR, Duration: 30 day, Stop date: 08/10/16 22:17:00 CSTNotes: (Same as: [place] 325/5) Do not exceed 4gm/day of acetaminophen. Sodium Chloride 1,000 mL, Rate: No Longer [place] 0.154 MEQ/ML 75 ml/hr, Active 2015 Medical Injectable Infuse over: Center Solution 13.3 hr, Route: IV, Dosing Weight 84.545 kg, Total Volume: 1,000, Start date: 07/11/16 22:18:00 FRUIT PRESS OPERATOR, Duration: 30 day, Stop date: 08/10/16 22:17:00 FRUIT PRESS OPERATOR Reglan 10 mg, 2 mL, Inactive [place] Route: IVP, 2015 Medical Drug form: INJ, Center ONCE, Dosing Weight 84.545, kg, Priority: STAT, Start date: 07/11/16 20:59:00 FRUIT PRESS OPERATOR, Stop date: 07/11/16 20:59:00 CSTNotes: (Same as: Reglan) Sodium Chloride 1,000 mL, 1,000 Inactive [place] 0.154 MEQ/ML ml/hr, Infuse 2016 Medical Injectable Over: 1 hr, Center Solution Route: IV, 1,000, Drug form: INJ, ONCE, Priority: STAT, Dosing Weight 84.545 kg, Start date: 07/11/16 20:59:00 FRUIT PRESS OPERATOR, Duration: 1 doses or times, Stop date: 07/11/16 20:59:00 FRUIT PRESS OPERATOR Acetaminophen 1,000 mg, 2 Inactive 07/12/ [facility] tab, Route: PO, 2015 Medical Drug form: TAB, Center ONCE, Dosing Weight 84.545, kg, Priority: STAT, Start date: 07/11/16 20:59:00 FRUIT PRESS OPERATOR, Stop date: 07/11/16 20:59:00 CSTNotes: Max acetaminophen 4000 mg/day (4 gm/day). (Same as: Tylenol Extra Strength) Allergies, Adverse Reactions, Alerts Substance Category Reaction Severity Reaction Status Date Comments Source type Reported amoxicillin Assertion Drug Active MH allergy [facility] LaMICtal Assertion Drug Active MH allergy [facility] Medical Tape Assertion Drug Active MH allergy [facility] penicillins Assertion Drug Active MH allergy [facility] Immunizations Immunization Date Given Site Status Last Updated Comments Source Results Order Name Results Value Reference Date Interpretation Comments Source Range Brain Brain shunt Clinical Indication:21 years Female with Pain and swelling 07/15 - shunt series DX /2015 - [facility] series DX Comparison: Shunt study 07/12/2016 Read by: Scot Saenz MD Dictated Date/time: 07/15/16 23:38 FINDINGS: Electronically Signed by: Scot Saenz MD 07/15/16 23:41 FINAL REPORT Radiographs of the right HAND UMBRELLA TIPPER shunt obtained from the skull to the abdomen. Unchanged appearance of the HAND UMBRELLA TIPPER shunt, which goes from the right lateral ventricle along the right neck, traverses the right upper chest to the left lower chest, and terminates in the left upper quadrant. No discontinuity of the HAND UMBRELLA TIPPER shunt. 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 IMPRESSION: Unchanged appearance of right HAND UMBRELLA TIPPER shunt. No discontinuity of the shunt catheter or other significant radiographic abnormality. Brain w/wo Brain w/wo Exam: MRI brain without and with contrast. 07/13 - [facility] contrast contrast MRI /2015 - Medical MRI [...] brain without and with contrast. 07/13 - [facility] contrast contrast MRI /2015 - Medical MRI [...] CSF 34 mg/dL 15 - 45 07/13 [facility] FLUIDS [facility] BODY Color CSF Colorless Colorless 07/13 [place] FLUIDS [facility] (07/13/16 7:35 AM) Center BODY Clarity CSF Clear Clear 07/13 [facility] FLUIDS [facility] (07/13/16 7:35 AM) Center BODY Tube Num CSF xxxxxxx 07/13 [place] FLUIDS [facility] (07/13/16 7:35 AM) Center BODY RBC CSF 0 /mm3 0 - 03 07/13 [facility] [place] FLUIDS [facility] BODY Supernat CSF Colorless Colorless 07/13 [place] FLUIDS [facility] (07/13/16 7:35 AM) Center BODY WBC CSF 1 /mm3 0 - 53 07/13 [facility] [place] FLUIDS [facility] BODY Glucose CSF 56 mg/dL 45 - 80 07/13 [facility] [place] FLUIDS /2015 [facility] IMMUNOLOGY PE Interp CSF 07/13 [facility] protein [facility] electropho [place] resis did not reveal evidence of an oligoclona l process in the WHITE SOURER. The CSF IgG index is within the reference range indicating that there is no elevation in intracereb ral IgG synthesis. There is also no evidence of increased permeabili ty of the blood brain barrier based on the CSF/serum albumin ratio.The electronic medical record has been reviewed for relevant history.I have personally reviewed the test results and concur with the resident's interpreta tion.CPT: 40864-AY IMMUNOLOGY Description The gel 07/13 [facility] [place] CSF demonstrat [facility] appropriat e resolution of the main protein bands. The gamma region shows continuous distributi on of proteins both in the CSF and in the serum. No oligoclona l bands are detected. IMMUNOLOGY IgG (CPE) 1010 mg/dL 694 - 1618 07/13 [facility] IMMUNOLOGY Alb (CPE) 4100.0 3400.0 - 07/13 [facility] mg/dL 5000.0 [facility] IMMUNOLOGY IgG Lvl CSF 1.7 mg/dL 2.0 - 4.0 07/13 [facility] IMMUNOLOGY Alb CSF 14.7 mg/dL 14.0 - 07/13 [facility] [place] (CPE) 25.0 [facility] IMMUNOLOGY IgG Index 0.5 mg/dL 0.3 - 0.7 07/13 [facility] CHEM PANEL eGFR 128 07/13 Result Comment: The eGFR is calculated using the CKD-EPI formula. In most young, healthy individuals the eGFR will be >90 mL/ min/1.73m2. The eGFR declines with age. An eGFR of 60-89 may be normal in [facility] mL/min/1.7 some populations, particularly the elderly, for whom the CKD-EPI formula has not been extensively validated. Use of the eGFR is not recommended in the following populations: [address] Individuals with unstable creatinine concentrations, including [...] Lvl 8.8 mg/dL 8.5 - 10.5 07/13 [facility] CHEM PANEL CO2 23 meq/L 24 - 32 07/13 [facility] CHEM PANEL Chloride Lvl 108 meq/L 95 - 109 07/13 [facility] CHEM PANEL Creatinine 0.61 mg/dL 0.50 - 07/13 [facility] [place] Lvl 1.40 [facility] CHEM PANEL Sodium Lvl 142 meq/L 135 - 145 07/13 [facility] CHEM PANEL BUN 7 mg/dL 7 - 22 07/13 [facility] CHEM PANEL Potassium 3.9 meq/L 3.5 - 5.1 07/13 [facility] [place] Lvl /2015 [facility] CHEM PANEL Glucose Lvl 88 mg/dL 70 - 99 07/13 [facility] CHEM PANEL AGAP 14.9 meq/L 10.0 - 07/13 20.0 [facility] HEMATOLOGY Lymphocytes 37.9 % 20.0 - 07/13 40.0 [facility] HEMATOLOGY Segs 52.1 % 45.0 - 07/13 75.0 [facility] HEMATOLOGY Monocytes 7.3 % 2.0 - 12.0 07/13 [facility] HEMATOLOGY Basophils 0.8 % 0.0 - 1.0 07/13 [facility] HEMATOLOGY Eosinophils 1.9 % 0.0 - 4.0 07/13 [facility] HEMATOLOGY Segs-Bands # 3.8 K/CMM 1.5 - 8.1 07/13 [facility] HEMATOLOGY Eosinophils 0.1 K/CMM 0.0 - 0.5 07/13 [facility] HEMATOLOGY Monocytes # 0.5 K/CMM 0.0 - 0.8 07/13 [facility] HEMATOLOGY Lymphocytes 2.7 K/CMM 1.0 - 5.5 07/13 [facility] HEMATOLOGY Basophils # 0.1 K/CMM 0.0 - 0.2 07/13 [facility] HEMATOLOGY RBC 4.53 M/CMM 4.20 - 07/13 5.40 [facility] HEMATOLOGY WBC 7.2 K/CMM 3.7 - 10.4 07/13 [facility] HEMATOLOGY Hct 38.5 % 36.0 - 07/13 48.0 [facility] HEMATOLOGY Hgb 13.0 g/dL 12.0 - 07/13 16.0 [facility] HEMATOLOGY MCHC 33.9 g/dL 32.0 - 07/13 36.0 [facility] HEMATOLOGY MCH 28.8 pg 27.0 - 07/13 31.0 [facility] HEMATOLOGY RDW 14.0 % 11.5 - 07/13 14. [facility] HEMATOLOGY MPV 9.2 fL 7.4 - 10.4 07/13 [facility] HEMATOLOGY Platelet 283 K/CMM 133 - 450 07/13 [facility] HEMATOLOGY MCV 84.9 fL 80.0 - 07/13 [place] 98.0 /2015 [facility] HEMATOLOGY INR 0.96 0.85 - 07/13 [place] 1.17 /2015 [facility] HEMATOLOGY PTT 31.9 s 22.9 - 07/13 [place] 35.8 /2015 [facility] HEMATOLOGY PT 13.0 s 12.0 - 07/13 [facility] 14.7 [facility] Brain wo Brain wo EXAM: CT HEAD WITHOUT CONTRAST 07/13 [facility] contrast contrast CT /2015 - [facility] CT Center DATE: 07/13/2016 Read by: Marcos Jo MD Dictated Date/time: 07/13/16 06:58 Electronically Signed by: Marcos Jo MD 07/13/16 07:01 FINAL REPORT INDICATION: 21 years old Female patient with history of HAND UMBRELLA TIPPER shunt placement , now complaining of headache. TECHNIQUE: Multiple axial images were obtained through the head from vertex to the skull base. Axial bone algorithm reconstruction images are provided. COMPARISON: Prior CT Scan of the head dated 07/12/2016 147 AM FRUIT PRESS OPERATOR DISCUSSION: Again identified is a right parietal approach HAND UMBRELLA TIPPER shunt catheter with distal tip lies within [...] adverse change. 2. Stable right parietal approach HAND UMBRELLA TIPPER shunt catheter with adequately decompressed ventricular system. 3. 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 CARDIAC Troponin-T null 0.000 - 07/12 [facility] [place] ENZYMES 0.100 [facility] CARDIAC Total CK 33 unit/L 12 - 191 07/12 [facility] [place] ENZYMES /2015 [facility] MYOGLOBIN Myoglobin 35 ng/mL 25 - 72 07/12 [place] /[address] [place] [address] Chest Chest 1view EXAM: XR CHEST 1 VIEW 07/12 - [facility] [place] 1view DX DX /2015 [facility] DATE: 07/12/2016 4:10 PM FRUIT PRESS OPERATOR Read by: Albert Vail MD Dictated Date/time: 07/12/16 16:40 Electronically Signed by: Albert Vail 07/12/16 16:42 FINAL REPORT INDICATION: Chest pain COMPARISON: Yesterday TECHNIQUE: AP chest FINDINGS: Abandoned and calcified discontinuous HAND UMBRELLA TIPPER shunt tubing is redemonstrated over the right lower neck and anterior chest, coursing over the upper abdomen. Additional HAND UMBRELLA TIPPER shunt tubing is seen over t he right neck, extending over the midline chest and left upper quadrant; distal tubing is not well seen. Stable cardiomediastinal silhouette. No new pulmonary or pleural based abnormalities. IMPRESSION: No significant change. Brain Brain shunt EXAM: XR SHUNT SERIES 07/12 - [place] shunt series - Medical series DX This report was dictated by a Program Management Professional/Fellow. I have personally reviewed the images as Center well as the Resident's interpretation and agree with the findings. DATE: 07/12/2016 7:03 AM FRUIT PRESS OPERATOR Read by: Siva Lanza MD Resident: Siva [...] the L3 level. IMPRESSION: 1. Right programmable HAND UMBRELLA TIPPER shunt with unremarkable appearance. 2. 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 Skull 1 Skull 1 view EXAM: XR SKULL 1 VIEW 07/12 - [place] view DX DX /2015 - Medical This report was dictated by a Program Management Professional/Fellow. I have personally reviewed the images as Center well as the Resident's interpretation and agree with the findings. DATE: 07/12/2016 7:03 AM FRUIT PRESS OPERATOR Read by: Siva Lanza MD Resident: Siva [...] U Phencyc Negative Negative 07/12 SCREEN [facility]* [place] (07/12/16 12:39 AM) DRUG U Opiate Scr Negative Negative 07/12 [facility] (07/12/16 12:39 AM) DRUG U Propoxyph Negative Negative 07/12 [facility] (07/12/16 12:39 AM) DRUG U Methadone Negative Negative 07/12 [facility] (07/12/16 12:39 AM) DRUG UDS Note See Note 07/12 [facility] (07/12/16 12:39 AM) DRUG U Benzodia Negative Negative 07/12 [facility] (07/12/16 12:39 AM) DRUG U Amph Scr Negative Negative 07/12 [facility] (07/12/16 12:39 AM) DRUG U Cannab Scr Negative Negative 07/12 [facility] (07/12/16 12:39 AM) DRUG U Cocaine Negative Negative 07/12 [facility] (07/12/16 12:39 AM) DRUG U Tori Scr Negative Negative 07/12 [facility] [place] (07/12/16 12:39 AM) HEMATOLOGY Platelet 306 K/CMM 133 - 450 07/12 [facility] HEMATOLOGY RDW 13.5 % 11.5 - 07/12 [place] 14. [facility] HEMATOLOGY MPV 9.3 fL 7.4 - 10.4 07/12 [facility] HEMATOLOGY RBC 4.46 M/CMM 4.20 - 07/12 [place] 5.40 /2015 [facility] HEMATOLOGY Hgb 12.6 g/dL 12.0 - 07/12 [place] 16.0 /2015 [facility] HEMATOLOGY Hct 37.4 % 36.0 - 07/12 [place] 48.0 /2015 [facility] HEMATOLOGY MCV 83.9 fL 80.0 - 07/12 [place] 98.0 /2015 [facility] HEMATOLOGY WBC 9.4 K/CMM 3.7 - 10.4 07/12 /2015 [facility] HEMATOLOGY MCH 28.3 pg 27.0 - 07/12 [place] 31.0 /2015 [facility] HEMATOLOGY MCHC 33.8 g/dL 32.0 - 07/12 [facility] 36.0 [facility] HEMATOLOGY PTT 33.7 s 22.9 - 07/12 [place] 35.8 /2015 [facility] HEMATOLOGY INR 1.02 0.85 - 07/12 [place] 1.17 [facility] HEMATOLOGY PT 13.6 s 12.0 - 07/12 [place] 14.7 /2015 [facility] HEMATOLOGY Segs-Bands # 5.5 K/CMM 1.5 - 8.1 07/12 [facility] HEMATOLOGY Monocytes # 0.6 K/CMM 0.0 - 0.8 07/12 [facility] HEMATOLOGY Lymphocytes 3.0 K/CMM 1.0 - 5.5 07/12 [place] /2015 [facility] HEMATOLOGY Basophils # 0.1 K/CMM 0.0 - 0.2 07/12 [facility] HEMATOLOGY Eosinophils 0.1 K/CMM 0.0 - 0.5 07/12 [place] /2016 [facility] HEMATOLOGY Basophils 0.9 % 0.0 - 1.0 07/12 /2015 [facility] HEMATOLOGY Segs 58.7 % 45.0 - 07/12 [place] 75.0 [facility] HEMATOLOGY Lymphocytes 32.5 % 20.0 - 07/12 [place] 40.0 /2016 [facility] HEMATOLOGY Monocytes 6.5 % 2.0 - 12.0 07/12 [facility] HEMATOLOGY Eosinophils 1.4 % 0.0 - 4.0 07/12 [facility] URINE AND UA WBC 1 /HPF 0 - 5 07/12 [facility] [place] [facility] URINE AND Micro? Not Indicated 07/12 [facility] *NA* [place] (07/12/16 12:39 AM) URINE AND UA <=1.0 0.1 - 1.0 07/12 [facility] [place] [facility] Urobilinogen mg/dL [facility] URINE AND UA Protein Negative Negative 07/12 [facility] [place] [facility] mg/dL mg/dL [facility] URINE AND UA Glucose Negative Negative 07/12 [facility] [place] [facility] mg/dL mg/dL [facility] URINE AND UA Turbidity Clear Clear 07/12 [facility] [facility] (07/12/16 12:39 AM) [place] URINE AND UA Spec Grav 1.011 <=1.030 07/12 [facility] [place] [facility] URINE AND UA pH 6.5 5.0 - 8.0 07/12 [facility] [place] [facility] URINE AND UA Color Yellow Yellow 07/12 [facility] *NA* [place] (07/12/16 12:39 AM) URINE AND UA Sq Epi Moderate Few /LPF 07/12 [facility] STOOL /LPF /2015 [facility] URINE AND UA Leuk Est Negative Negative 07/12 [facility] [place] [facility] (07/12/16 12:39 AM) [place] URINE AND UA Ketones Negative Negative 07/12 [facility] [place] [facility] mg/dL mg/dL [facility] URINE AND UA Bili Negative Negative 07/12 [facility] [place] [facility] *NA* [place] (07/12/16 12:39 AM) URINE AND UA Blood Negative Negative 07/12 [facility] [place] [facility] (07/12/16 12:39 AM) [place] URINE AND UA Nitrite Negative Negative 07/12 [facility] [facility] (07/12/16 12:39 AM) [place] URINE CHEM U Preg Negative Negative 07/12 [facility] (07/12/16 12:39 AM) Center BLOOD BANK Antibody Negative 07/12 [facility] RESULTS Scrn [facility] (07/11/16 11:50 PM) [place] BLOOD BANK ABO/Rh A POS 07/12 [facility] RESULTS [facility] CHEM PANEL Glucose Lvl 93 mg/dL 70 - 99 07/12 [facility] CHEM PANEL AGAP 15.5 meq/L 10.0 - 07/12 [place] 20.0 [facility] CHEM PANEL eGFR 113 07/12 Result Comment: The eGFR is calculated using the CKD-EPI formula. In most young, healthy individuals the eGFR will be >90 mL/ min/1.73m2. The eGFR declines with age. An eGFR of 60-89 may be normal in [facility] mL/min/1. some populations, particularly the elderly, for whom the CKD-EPI formula has not been extensively validated. Use of the eGFR is not recommended in the following populations: [address] Individuals with unstable creatinine concentrations, including [...] Lvl 142 meq/L 135 - 145 07/[address] CHEM PANEL Creatinine 0.75 mg/dL 0.50 - 07/12 [facility] 1.40 [facility] CHEM PANEL BUN 6 mg/dL 7 - 22 07/[address] CHEM PANEL Calcium Lvl 8.8 mg/dL 8.5 - 10.5 07/[address] CHEM PANEL CO2 26 meq/L 24 - 32 07/[address] CHEM PANEL Potassium 3.5 meq/L 3.5 - 5.1 07/12 [facility] CHEM PANEL Chloride Lvl 104 meq/L 95 - 109 07/[address] Brain wo Brain wo EXAM: CT HEAD WITHOUT CONTRAST 07/12 - [facility] contrast contrast CT /2015 - [facility] DATE: 07/12/2016 147 AM FRUIT PRESS OPERATOR Read by: Marcos Jo MD Dictated Date/time: 07/12/16 10:11 Electronically Signed by: Marcos Jo MD 07/12/16 10:22 FINAL REPORT INDICATION: 21 years old Female patient with history of HAND UMBRELLA TIPPER shunt placement , now complaining of headache. TECHNIQUE: Multiple axial images were obtained through the head from vertex to the skull base. Axial bone algorithm reconstruction images are provided. COMPARISON: Prior outside hospital CT Scan of the head dated 07/11/2016 DISCUSSION: Again identified is a right parietal approach HAND UMBRELLA TIPPER shunt catheter with distal tip lies within [...] adverse change. 2. Stable right parietal approach HAND UMBRELLA TIPPER shunt catheter with adequately decompressed ventricular system. 3. 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 Chest Chest 1view EXAM: XR CHEST 1 VIEW 07/11 [facility] 1view DX DX /2015 - [facility] This report was dictated by a Program Management Professional/Fellow. I have personally reviewed the images as Center well as the Resident's interpretation and agree with the findings. DATE: 07/11/2016 2230 hours Read by: Macy Campos MD Resident: Macy Campos MD Dictated Date/time: 07/11/16 22:49 Electronically Signed by: Aron Pacheco 07/12/16 08:18 FINAL REPORT INDICATION: Mass COMPARISON: Chest radiograph 07/11/2016 TECHNIQUE: AP chest FINDINGS: Lines and tubes: Abandoned and calcified discontinuous HAND UMBRELLA TIPPER shunt tubing is redemonstrated over the right lower neck and anterior chest, coursing over the upper abdomen. Additional HAND UMBRELLA TIPPER shunt tubing is seen over the right [...] No acute cardiopulmonary abnormality. 2. Partially visualized HAND UMBRELLA TIPPER shunt tubing as discussed above. Vital Signs Vital Sign Value Date Comments Source Respitory Rate 16 07/16/2016 [facility] Systolic (mm Hg) 134 07/16/2016 [facility] Diastolic (mm Hg) 63 07/16/2016 [facility] Temperature Oral (F) 98.2 F 07/16/2016 [facility] Temperature Oral (F) 98.6 F 07/16/2016 [facility] Respitory Rate 14 07/16/2016 [facility] Diastolic (mm Hg) 81 07/16/2016 [facility] Systolic (mm Hg) 131 07/16/2016 [facility] Weight 84.545 07/16/2016 [facility] Respitory Rate 20 07/16/2016 [facility] Heart Rate 110 07/16/2016 [facility] Temperature Oral (F) 98.8 F 07/16/2016 [facility] BMI Calculated 35.22 07/16/2016 [facility] Height 154.94 cm 07/16/2016 [facility] Systolic (mm Hg) 126 07/16/2016 [facility] Diastolic (mm Hg) 87 07/16/2016 [facility] Respitory Rate 12 07/14/2016 [facility] Temperature Oral (F) 97.9 F 07/14/2016 [facility] Systolic (mm Hg) 111 07/14/2016 [facility] Diastolic (mm Hg) 72 07/14/2016 [facility] Respitory Rate 16 07/14/2016 [facility] Systolic (mm Hg) 117 07/14/2016 [facility] Diastolic (mm Hg) 79 07/14/2016 [facility] Respitory Rate 13 07/14/2016 [facility] Systolic (mm Hg) 110 07/14/2016 [facility] Diastolic (mm Hg) 61 07/14/2016 [facility] Heart Rate 84 07/14/2016 [facility] Heart Rate 75 07/14/2016 [facility] Heart Rate 81 07/14/2016 [facility] Temperature Oral (F) 98.0 F 07/13/2016 [facility] Temperature Oral (F) 98.1 F 07/13/2016 [facility] Weight 84.545 07/12/2016 [facility] Weight 84.545 07/12/2016 [facility] Height 152.4 cm 07/12/2016 [facility] BMI Calculated 36.4 07/12/2016 [facility] Encounters Location Location Encounter Encounter Reason Attending ADM DC Status Source Details Type Number For Provider Date Date [facility] [id number] [place] 07/12 07/14 Patsy Decker /2015 [facility] Emergency [id number] [place] 07/16 07/16 [facility] Kenyon Chung /2015 [facility] Procedures Procedure Code Date Perfomer Comments Source Creation of HAND UMBRELLA TIPPER [id number] [facility] shunt Creation of HAND UMBRELLA TIPPER [id number] [facility]
--- NOTE | 2018-09-06 20:54 | RAD REPORT ---
EXAM DESCRIPTION: RAD - Chest Pa And Lat (2 Views) - 09/06/2018 8:34 pm CLINICAL HISTORY: Cough;Hemoptysis Chest pain. COMPARISON: Chest Single View dated 05/09/2017 FINDINGS: The lungs are clear. The heart is normal in size. No displaced fractures. Shunt tubing is seen along the right chest. IMPRESSION: No acute or concerning finding suspected.
[2018-09-06 20:55] LABS: Urine Blood NEGATIVE (NEG); Urine Glucose NEGATIVE (NEG); Urine Protein NEGATIVE (NEG)
--- NOTE | 2018-09-06 21:22 | EDPHYS ---
Physician Documentation [facility] Name: Shanna Estrella Age: 23 yrs Sex: Female : 1995 Arrival Date: 09/06/2018 Time: 19:32 Bed 16 Private MD: ED Physician Fritz Reid HPI: 09/06 20:20 This 23 yrs old Female presents to ER via Ambulatory with complaints of jr8 Vomiting, COUGHING UP BLOOD. 20:20 The patient or guardian reports cough, that is intermittent, described as mild, with jr8 productive sputum, that is bloody. Onset: The symptoms/episode began/occurred today. Severity of symptoms: At their worst the symptoms were mild, in the emergency department the symptoms are unchanged. Modifying factors: The symptoms are alleviated by nothing, the symptoms are aggravated by nothing. Associated signs and symptoms: The patient has no apparent associated signs or symptoms. The patient has not experienced similar symptoms in the past. The patient has not recently seen a physician. 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 - Social history:: Smoking status: Patient/guardian denies using tobacco, the patient reports quitting approximately .25 years ago. - Ebola Screening: : No symptoms or risks identified at this time. ROS: 20:20 Eyes: Negative for injury, pain, redness, and discharge, ENT: Negative for injury, jr8 pain, and discharge, Neck: Negative for injury, pain, and swelling, Cardiovascular: Negative for chest pain, palpitations, and edema, Abdomen/GI: Negative for abdominal pain, nausea, vomiting, diarrhea, and constipation, Back: Negative for injury and pain, MS/Extremity: Negative for injury and deformity, Skin: Negative for injury, rash, and discoloration, Neuro: Negative for headache, weakness, numbness, tingling, and seizure. 20:20 Respiratory: Positive for cough, with yellow sputum, hemoptysis, Negative for pleurisy, shortness of breath, wheezing. Exam: 20:20 Eyes: Pupils equal round and reactive to light, extra-ocular motions intact. Lids and jr8 lashes normal. Conjunctiva and sclera are non-icteric and not injected. Cornea within normal limits. Periorbital areas with no swelling, redness, or edema. ENT: Nares patent. No nasal discharge, no septal abnormalities noted. Tympanic membranes are normal and external auditory canals are clear. Oropharynx with no redness, swelling, or masses, exudates, or evidence of obstruction, uvula midline. Mucous membranes moist. Neck: Trachea midline, no thyromegaly or masses palpated, and no cervical lymphadenopathy. Supple, full range of motion without nuchal rigidity, or vertebral point tenderness. No Meningismus. Cardiovascular: Regular rate and rhythm with a normal S1 and S2. No gallops, murmurs, or rubs. Normal PMI, no JVD. No pulse deficits. Respiratory: Lungs have equal breath sounds bilaterally, clear to auscultation and percussion. No rales, rhonchi or wheezes noted. No increased work of breathing, no retractions or nasal flaring. Abdomen/GI: Soft, non-tender, with normal bowel sounds. No distension or tympany. No guarding or rebound. No evidence of tenderness throughout. Back: No spinal tenderness. No costovertebral tenderness. Full range of motion. Skin: Warm, dry with normal turgor. Normal color with no rashes, no lesions, and no evidence of cellulitis. MS/ Extremity: Pulses equal, no cyanosis. Neurovascular intact. Full, normal range of motion. Neuro: Awake and alert, GCS 15, oriented to person, place, time, and situation. Cranial nerves II-XII grossly intact. Motor strength 5/5 in all extremities. Sensory grossly intact. Cerebellar exam normal. Normal gait. Vital Signs: 19:47 BP 128 / 83; Pulse 94; Resp 18; Temp 97.6(O); Pulse Ox 99% on R/A; Weight 88.45 kg (R); ak1 Height 5 ft. 1 in. (154.94 cm) (R); Pain 0/10; 20:39 BP 112 / 78; Pulse 82; Resp 18; Pulse Ox 97% on R/A; aa1 21:32 BP 93 / 78; Pulse 81; Resp 18; Temp 97.5; Pulse Ox 98% on R/A; Pain 0/10; aa1 19:47 Body Mass Index 36.84 (88.45 kg, 154.94 cm) ak1 MDM: 19:50 Patient medically screened. jr8 21:21 Data reviewed: vital signs, nurses notes, lab test result(s), radiologic studies, plain jr8 films, and as a result, I will discharge patient. Data interpreted: Pulse oximetry: on room air is 97 %. Interpretation: normal. Counseling: I had a detailed discussion with the patient and/or guardian regarding: the historical points, exam findings, and any diagnostic results supporting the discharge/admit diagnosis, lab results, radiology results, the need for outpatient follow up, a family practitioner, to return to the emergency department if symptoms worsen or persist or if there are any questions or concerns that arise at home. 09/06 20:27 Order name: Urine Dipstick--Ancillary (enter results); Complete Time: 21:20 ag4 09/06 20:27 Order name: Urine --Ancillary (enter results); Complete Time: 21:20 ag4 09/06 20:01 Order name: XRAY Chest Pa And Lat (2 Views); Complete Time: 21:20 jr8 09/06 20:18 Order name: Urine Dipstick-Ancillary (obtain specimen); Complete Time: 20:34 jr8 09/06 20:18 Order name: Urine Test (obtain specimen); Complete Time: 20:34 jr8 Administered Medications: No medications were administered Disposition: 09/07 04:00 Co-signature as Attending Physician, Fritz Reid MD I agree with the assessment and tw4 plan of care. Disposition: 09/06/18 21:21 Discharged to Home. Impression: Acute bronchitis, Hemoptysis. - Condition is Stable. - Discharge Instructions: Acute Bronchitis, Adult, Hemoptysis. - Prescriptions for Prednisone 20 mg Oral Tablet - take 1 tablet by ORAL route once daily for 5 days; 5 tablet. Zithromax Z- Johnathon 250 mg Oral Tablet - take 1 tablet by ORAL route as directed for 5 days Day 1 - take two (2) tablets one time. Day 2, 3, 4 , 5 take one (1) tablet once daily.; 6 tablet. - Family Work Release, Medication Reconciliation Form, Thank You Letter, Antibiotic Education, Prescription Opioid Use form. - Follow up: Private Physician; When: 5 - 6 days; Reason: Recheck today's complaints, Continuance of care, Re-evaluation by your physician. - Problem is new. - Symptoms have improved. Signatures: Dispatcher [employer] EDMS Mirtha Shafer RN RN aa1 Manny Torres PA PA jr8 Breonna Lim RN RN ak1 Fritz Reid MD MD tw4 Corrections: (The following items were deleted from the chart) 09/06 21:34 21:21 09/06/2018 21:21 Discharged to Home. Impression: Acute bronchitis; Hemoptysis. aa1 Condition is Stable. Forms are Medication Reconciliation Form, Thank You Letter, Antibiotic Education, Prescription Opioid Use. Follow up: Private Physician; When: 5 - 6 days; Reason: Recheck today's complaints, Continuance of care, Re-evaluation by your physician. Problem is new. Symptoms have improved. jr8
--- NOTE | 2018-09-06 21:22 | ER ---
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 pt c/o cough X3 days. Transition of care: patient was not received from another setting of care. Onset of symptoms is unknown. Risk Assessment: Do you want to hurt yourself or someone else? Patient reports no desire to harm self or others. Initial Sepsis Screen: Does the patient meet any 2 criteria? No. Patient's initial sepsis screen is negative. Does the patient have a suspected source of infection? No. Patient's initial sepsis screen is negative. Care prior to arrival: None. 19:48 Method Of Arrival: Ambulatory ak1 19:48 Acuity: ELI 4 ak1 Triage Assessment: 19:47 General: Appears in no apparent distress. Behavior is calm, cooperative. Pain: Denies ak1 pain. 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 - Social history:: Smoking status: Patient/guardian denies using tobacco, the patient reports quitting approximately .25 years ago. - Ebola Screening: : No symptoms or risks identified at this time. Screenin:00 Abuse screen: Denies threats or abuse. Denies injuries from another. Nutritional aa1 screening: No deficits noted. Tuberculosis screening: No symptoms or risk factors identified. Fall Risk None identified. Assessment: 20:00 General: Appears in no apparent distress. comfortable, Behavior is calm, cooperative, aa1 appropriate for age. Pain: Denies pain. Neuro: Level of Consciousness is awake, alert, obeys commands, Oriented to person, place, time, situation. Cardiovascular: Heart tones S1 S2 present Rhythm is regular. Respiratory: Reports cough that is productive, Airway is patent Respiratory effort is even, unlabored, Respiratory pattern is regular, symmetrical, Breath sounds are clear bilaterally. GI: Abdomen is non-distended, Abd is soft and non tender X 4 quads. : No signs and/or symptoms were reported regarding the genitourinary system. EENT: Throat is clear. Derm: Skin is intact, is healthy with good turgor, Skin is pink, warm \\T\\ dry. Musculoskeletal: Circulation, motion, and sensation intact. Capillary refill < 3 seconds. 21:32 Reassessment: Patient appears in no apparent distress at this time. Patient is alert, aa1 oriented x 3, equal unlabored respirations, skin warm/dry/pink. Discussed d/c \\T\\ f/u instructions with pt \\T\\ spouse; denies questions or concerns at this time. Vital Signs: 19:47 BP 128 / 83; Pulse 94; Resp 18; Temp 97.6(O); Pulse Ox 99% on R/A; Weight 88.45 kg (R); ak1 Height 5 ft. 1 in. (154.94 cm) (R); Pain 0/10; 20:39 BP 112 / 78; Pulse 82; Resp 18; Pulse Ox 97% on R/A; aa1 21:32 BP 93 / 78; Pulse 81; Resp 18; Temp 97.5; Pulse Ox 98% on R/A; Pain 0/10; aa1 19:47 Body Mass Index 36.84 (88.45 kg, 154.94 cm) ak1 ED Course: 19:32 Patient arrived in ED. al2 19:47 Arm band placed on Patient placed in an exam room, on a stretcher, on pulse oximetry, ak1 Patient notified of wait time. 19:49 Triage completed. ak1 19:50 Manny Torres PA is PHCP. jr8 19:50 Fritz Reid MD is Attending Physician. jr8 20:00 Patient has correct armband on for positive identification. Placed in gown. Bed in low aa1 position. Call light in reach. Pulse ox on. NIBP on. 20:20 Urine collected: clean catch specimen, clear. aa1 20:31 XRAY Chest Pa And Lat (2 Views) In Process Unspecified. EDMS 20:34 Mirtha Shafer, RN is Primary Nurse. aa1 21:32 No provider procedures requiring assistance completed. Patient did not have IV access aa1 during this emergency room visit. Administered Medications: No medications were administered Outcome: 21:21 Discharge ordered by . jrDomenic 21:32 Discharged to home ambulatory, with significant other. aa1 21:32 Condition: good 21:32 Discharge instructions given to patient, significant other, Instructed on discharge instructions, follow up and referral plans. medication usage, Demonstrated understanding of instructions, follow-up care, medications, Prescriptions given X 2. 21:34 Patient left the ED. aa1 Signatures: Dispatcher [employer] EDMS Mirtha Shafer, RN RN aa1 Manny Torres PA PA jr8 Breonna Lim RN RN ak1 Ayla Zaragoza al2
== END 2018-09-06 21:34 | disposition home or self-care (01) ==
LOC: ER 19:30
DX: J20.9 Acute bronchitis, unspecified (principal); Z88.0 Allergy status to penicillin; Z88.1 Allergy status to other antibiotic agents
CPT/HCPCS: 71046; 81003; 81025; 99284

== ENCOUNTER 2018-09-24 04:09 | Emergency (ER) | payer SELFPAY ==
--- OUTSIDE RECORDS SUMMARY | 2018-09-24 04:13 | XMS REPORT | Continuity of Care Document ---
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 Hydrocephalus Resolved Problem 07/19/2016 [facility] Depression Resolved Problem 07/19/2016 [facility] PTSD (<span Resolved Problem 07/19/2016 ID="[id number] [facility],M ">Confirmed</spa H [place] n>) [facility] PTSD (<span Resolved Problem 07/19/2016 ID="[id number] [facility],M ">Confirmed</spa H [place] n>) [facility] HEADACHE Active [facility] [place] [place] Medications Medication Details Route Status Patient Ordering Order Source Instructions Provider Date Ketorolac 60 mg, Route: No Longer IM, Drug form: Active 2015 [facility] INJ, ONCE, Dosing Weight 84.545, kg, Priority: STAT, Start date: 07/15/16 23:21:00 HEALTH AND SAFETY COORDINATOR, Stop date: 07/15/16 23:21:00 HEALTH AND SAFETY COORDINATOR Valium 5 mg, Route: No Longer IM, Drug form: Active 2015 [facility] INJ, ONCE, Dosing Weight 84.545, kg, Priority: STAT, Start date: 07/15/16 23:21:00 HEALTH AND SAFETY COORDINATOR, Stop date: 07/15/16 23:21:00 HEALTH AND SAFETY COORDINATOR Ativan 1 mg, 0.5 mL, No Longer [facility] Route: IVP, Active [facility] Medical Drug form: INJ, Center ONCE, Dosing Weight 84.545, kg, PRN Anxiety, Start date: 07/13/16 23:15:00 CSTNotes: (Same as: Ativan) nystatin 1 appl, Route: No Longer [facility] topical 100,000 TOP, TID, Drug Active 2015 Medical units/g cream form: CRM, Center Start date: 07/13/16 17:00:00 HEALTH AND SAFETY COORDINATOR, Duration: 30 day, Stop date: 08/12/16 13:00:00 CSTNotes: (Same as:Mycostatin, Nilstat) For external use only. Nystatin [id number] 1 appl, Route: Inactive [facility] UNT/ML / TOP, TID, Drug 2015 Medical Triamcinolone form: [facility], [place] Acetonide 1 Start date: MG/ML Topical 07/13/16 Cream 9:00:00 HEALTH AND SAFETY COORDINATOR, Duration: 30 day, Stop date: 08/11/16 17:00:00 HEALTH AND SAFETY COORDINATOR Sodium Chloride 250 mL, 250 Inactive [facility] 0.154 MEQ/ML ml/hr, Infuse 2015 Medical Injectable Over: 1 hr, [place] Solution Route: IV, 250, Drug form: INJ, ONCE, Priority: STAT, Dosing Weight 84.545 kg, Start date: 07/12/16 16:18:00 HEALTH AND SAFETY COORDINATOR, Duration: 1 doses or times, Stop date: 07/12/16 16:18:00 HEALTH AND SAFETY COORDINATOR Promethazine 12.5 mg, 0.5 No Longer [facility] mL, Route: Active 2015 Medical IVPB, Drug Center form: INJ, Q4H, Dosing Weight 84.545, kg, PRN as needed for nausea/vomiting , Start date: 07/12/16 16:17:00 HEALTH AND SAFETY COORDINATOR, Duration: 30 day, Stop date: 08/11/16 16:16:00 CSTNotes: Do not give IV push. (Same as: Phenergan) Docusate 100 mg, 1 cap, No Longer [facility] Route: PO, Drug Active 2015 Medical form: CAP, Center Q12H, Dosing Weight 84.545, kg, Start date: 07/12/16 9:00:00 HEALTH AND SAFETY COORDINATOR, Duration: 30 day, Stop date: 08/10/16 21:00:00 CSTNotes: (Same as: Colace) (Do Not Crush) sennosides, CUSTODIAL 8.6 mg, 1 tab, No Longer [place] Route: PO, Drug Active 2015 Medical Form: TAB, Center Dosing Weight 84.545, kg, Q12H, Start date: 07/12/16 9:00:00 HEALTH AND SAFETY COORDINATOR, Duration: 30 day, Stop date: 08/10/16 21:00:00 CSTNotes: (Same as: Senokot) Saline Flush 10 ml, Route: No Longer [place] 0.9% IVP, Drug Form: Active 2015 Medical INJ, Dosing Center Weight 84.545, kg, Q12H, Start date: 07/12/16 9:00:00 HEALTH AND SAFETY COORDINATOR, Duration: 30 day, Stop date: 08/10/16 21:00:00 [...] Pain Score 1-3, Start date: 07/12/16 7:14:00 HEALTH AND SAFETY COORDINATOR, Duration: 30 day, Stop date: 08/11/16 7:13:00 [...] Abnormal Lab Result, Start date: 07/11/16 22:18:00 HEALTH AND SAFETY COORDINATOR, Duration: 30 day, Stop date: 08/10/16 22:17:00 [...] 50% 25 gm, 50 mL, No Longer [facility] Syringe Route: IVP, Active 2015 Medical Drug Form: INJ, Center Dosing Weight 84.545, kg, PRN, PRN Abnormal Lab Result, Start date: 07/11/16 22:18:00 HEALTH AND SAFETY COORDINATOR, Duration: 30 day, Stop date: 08/10/16 22:17:00 HEALTH AND SAFETY COORDINATOR Bisacodyl 10 mg, 1 supp, No Longer [facility] Route: VT, Drug Active 2015 Medical form: SUPP, Center Daily, Dosing Weight 84.545, kg, PRN Constipation, Start date: 07/11/16 22:18:00 HEALTH AND SAFETY COORDINATOR, Duration: 30 day, Stop date: 08/10/16 22:17:00 CSTNotes: (Same As: Dulcolax, Bisco-Lax) Saline Flush 10 ml, Route: No Longer [facility] 0.9% IVP, Drug Form: Active 2015 Medical INJ, Dosing Center Weight 84.545, kg, PRN, PRN Line Flush, Start date: 07/11/16 22:18:00 HEALTH AND SAFETY COORDINATOR, Duration: 30 day, Stop date: 08/10/16 22:17:00 CSTNotes: (Same as: BD Posiflush) Ondansetron 4 mg, 2 mL, No Longer [facility] Route: IVP, Active 2015 Medical Drug form: INJ, Center Q8H, Dosing Weight 84.545, kg, PRN Nausea & Vomiting, Start date: 07/11/16 22:18:00 HEALTH AND SAFETY COORDINATOR, Duration: 30 day, Stop date: 08/10/16 22:17:00 CSTNotes: (Same as: Leeanne) MEDICATION WASTE Product Size: 4 mg Product Wasted: _0__ mg Acetaminophen 1 tab, Route: No Longer [place] 325 MG / PO, Drug Form: Active 2016 Medical Hydrocodone TAB, Dosing Center Bitartrate 10 Weight 84.545, MG Oral Tablet kg, Q4H, PRN Pain Score 4-6, Start date: 07/11/16 22:18:00 HEALTH AND SAFETY COORDINATOR, Duration: 30 day, Stop date: 08/10/16 22:17:00 CSTNotes: Do not exceed 4gm/day of acetaminophen. (Same as: [place] 325/10) Acetaminophen 1 tab, Route: No Longer [place] 325 MG / PO, Drug Form: Active 2016 Medical Hydrocodone TAB, Dosing Center Bitartrate 5 MG Weight 84.545, Oral Tablet kg, Q4H, PRN Pain Score 1-3, Start date: 07/11/16 22:18:00 HEALTH AND SAFETY COORDINATOR, Duration: 30 day, Stop date: 08/10/16 22:17:00 CSTNotes: (Same as: [place] 325/5) Do not exceed 4gm/day of acetaminophen. Sodium Chloride 1,000 mL, Rate: No Longer [place] 0.154 MEQ/ML 75 ml/hr, Active 2015 Medical Injectable Infuse over: Center Solution 13.3 hr, Route: IV, Dosing Weight 84.545 kg, Total Volume: 1,000, Start date: 07/11/16 22:18:00 HEALTH AND SAFETY COORDINATOR, Duration: 30 day, Stop date: 08/10/16 22:17:00 HEALTH AND SAFETY COORDINATOR Reglan 10 mg, 2 mL, Inactive [place] Route: IVP, 2015 Medical Drug form: INJ, Center ONCE, Dosing Weight 84.545, kg, Priority: STAT, Start date: 07/11/16 20:59:00 HEALTH AND SAFETY COORDINATOR, Stop date: 07/11/16 20:59:00 CSTNotes: (Same as: Reglan) Sodium Chloride 1,000 mL, 1,000 Inactive [place] 0.154 MEQ/ML ml/hr, Infuse 2016 Medical Injectable Over: 1 hr, Center Solution Route: IV, 1,000, Drug form: INJ, ONCE, Priority: STAT, Dosing Weight 84.545 kg, Start date: 07/11/16 20:59:00 HEALTH AND SAFETY COORDINATOR, Duration: 1 doses or times, Stop date: 07/11/16 20:59:00 HEALTH AND SAFETY COORDINATOR Acetaminophen 1,000 mg, 2 Inactive 07/12/ [facility] tab, Route: PO, 2015 Medical Drug form: TAB, Center ONCE, Dosing Weight 84.545, kg, Priority: STAT, Start date: 07/11/16 20:59:00 HEALTH AND SAFETY COORDINATOR, Stop date: 07/11/16 20:59:00 CSTNotes: Max acetaminophen 4000 mg/day (4 gm/day). (Same as: Tylenol Extra Strength) Allergies, Adverse Reactions, Alerts Substance Category Reaction Severity Reaction Status Date Comments Source type Reported amoxicillin Assertion Drug Active MH allergy [facility] LaMICtal Assertion Drug Active MH allergy [facility] Medical Tape Assertion Drug Active MH allergy [facility] penicillins Assertion Drug Active MH allergy [facility] Immunizations Immunization Date Given Site Status Last Updated Comments Source Results Order Name Results Value Reference Date Interpretation Comments Source Range Brain Brain shunt Clinical Indication:21 years Female with Pain and swelling 07/15 - shunt series DX /2015 - [facility] series DX Comparison: Shunt study 07/12/2016 Read by: Scot Saenz MD Dictated Date/time: 07/15/16 23:38 FINDINGS: Electronically Signed by: Scot Saenz MD 07/15/16 23:41 FINAL REPORT Radiographs of the right DOG [employer] shunt obtained from the skull to the abdomen. Unchanged appearance of the DOG AND CAT [employer] COOK shunt, which goes from the right lateral ventricle along the right neck, traverses the right upper chest to the left lower chest, and terminates in the left upper quadrant. No discontinuity of the DOG AND CAT FOOD COOK shunt. 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 IMPRESSION: Unchanged appearance of right DOG AND CAT FOOD COOK shunt. No discontinuity of the shunt catheter or other significant radiographic abnormality. Brain w/wo Brain w/wo Exam: MRI brain without and with contrast. 07/13 - [facility] contrast contrast MRI /2015 - Medical [...] brain without and with contrast. 07/13 - [facility] contrast contrast MRI /2015 - Medical [...] CSF 34 mg/dL 15 - 45 07/13 [facility] FLUIDS [facility] BODY Color CSF Colorless Colorless 07/13 [place] FLUIDS [facility] (07/13/16 7:35 AM) Center BODY Clarity CSF Clear Clear 07/13 [facility] FLUIDS [facility] (07/13/16 7:35 AM) Center BODY Tube Num CSF xxxxxxx 07/13 [place] FLUIDS [facility] (07/13/16 7:35 AM) Center BODY RBC CSF 0 /mm3 0 - 03 07/13 [facility] FLUIDS [facility] BODY Supernat CSF Colorless Colorless 07/13 [place] FLUIDS [facility] (07/13/16 7:35 AM) Center BODY WBC CSF 1 /mm3 0 - 53 07/13 [facility] FLUIDS [facility] BODY Glucose CSF 56 mg/dL 45 - 80 07/13 [facility] FLUIDS /2015 [facility] IMMUNOLOGY PE Interp CSF 07/13 [facility] [place] protein [facility] electropho [place] resis did not reveal evidence of an oligoclona l process in the LOG RIDER. The CSF IgG index is within the reference range indicating that there is no elevation in intracereb ral IgG synthesis. There is also no evidence of increased permeabili ty of the blood brain barrier based on the CSF/serum albumin ratio.The electronic medical record has been reviewed for relevant history.I have personally reviewed the test results and concur with the resident's interpreta tion.CPT: [id number] IMMUNOLOGY Description The gel 07/13 [facility] CSF demonstrat [facility] appropriat e resolution of the main protein bands. The gamma region shows continuous distributi on of proteins both in the CSF and in the serum. No oligoclona l bands are detected. IMMUNOLOGY IgG (CPE) 1010 mg/dL 694 - 1618 07/13 [facility] IMMUNOLOGY Alb (CPE) 4100.0 3400.0 - 07/13 [facility] mg/dL 5000.0 [facility] IMMUNOLOGY IgG Lvl CSF 1.7 mg/dL 2.0 - 4.0 07/13 [facility] IMMUNOLOGY Alb CSF 14.7 mg/dL 14.0 - 07/13 [facility] (CPE) 25.0 [facility] IMMUNOLOGY IgG Index 0.5 mg/dL 0.3 - 0.7 07/13 [facility] CHEM PANEL eGFR 128 07/13 Result Comment: The eGFR is calculated using the CKD-EPI formula. In most young, healthy individuals the eGFR will be >90 mL/ min/1.73m2. The eGFR declines with age. An eGFR of 60-89 may be normal in [facility] mL/min/1.7 some populations, particularly the elderly, for whom the CKD-EPI formula has not been extensively validated. Use of the eGFR is not recommended in the following populations: [address] Individuals with unstable creatinine concentrations, including [...] Lvl 8.8 mg/dL 8.5 - 10.5 07/13 [facility] CHEM PANEL CO2 23 meq/L 24 - 32 07/13 [facility] CHEM PANEL Chloride Lvl 108 meq/L 95 - 109 07/13 [facility] CHEM PANEL Creatinine 0.61 mg/dL 0.50 - 07/13 [facility] Lvl 1.40 [facility] CHEM PANEL Sodium Lvl 142 meq/L 135 - 145 07/13 [facility] CHEM PANEL BUN 7 mg/dL 7 - 22 07/13 [facility] CHEM PANEL Potassium 3.9 meq/L 3.5 - 5.1 07/13 [facility] Lvl /2015 [facility] CHEM PANEL Glucose Lvl 88 mg/dL 70 - 99 07/13 [facility] CHEM PANEL AGAP 14.9 meq/L 10.0 - 07/13 20.0 [facility] HEMATOLOGY Lymphocytes 37.9 % 20.0 - 07/13 40.0 [facility] HEMATOLOGY Segs 52.1 % 45.0 - 07/13 75.0 [facility] HEMATOLOGY Monocytes 7.3 % 2.0 - 12.0 07/13 [facility] HEMATOLOGY Basophils 0.8 % 0.0 - 1.0 07/13 [facility] HEMATOLOGY Eosinophils 1.9 % 0.0 - 4.0 07/13 [facility] HEMATOLOGY Segs-Bands # 3.8 K/CMM 1.5 - 8.1 07/13 [facility] HEMATOLOGY Eosinophils 0.1 K/CMM 0.0 - 0.5 07/13 [facility] HEMATOLOGY Monocytes # 0.5 K/CMM 0.0 - 0.8 07/13 [facility] HEMATOLOGY Lymphocytes 2.7 K/CMM 1.0 - 5.5 07/13 [facility] HEMATOLOGY Basophils # 0.1 K/CMM 0.0 - 0.2 07/13 [facility] HEMATOLOGY RBC 4.53 M/CMM 4.20 - 07/13 5.40 [facility] HEMATOLOGY WBC 7.2 K/CMM 3.7 - 10.4 07/13 [facility] HEMATOLOGY Hct 38.5 % 36.0 - 07/13 48.0 [facility] HEMATOLOGY Hgb 13.0 g/dL 12.0 - 07/13 16.0 [facility] HEMATOLOGY MCHC 33.9 g/dL 32.0 - 07/13 36.0 [facility] HEMATOLOGY MCH 28.8 pg 27.0 - 07/13 31.0 [facility] HEMATOLOGY RDW 14.0 % 11.5 - 07/13 14. [facility] HEMATOLOGY MPV 9.2 fL 7.4 - 10.4 07/13 [facility] HEMATOLOGY Platelet 283 K/CMM 133 - 450 07/13 [facility] HEMATOLOGY MCV 84.9 fL 80.0 - 07/13 [place] 98.0 /2015 [facility] HEMATOLOGY INR 0.96 0.85 - 07/13 [place] 1.17 /2015 [facility] HEMATOLOGY PTT 31.9 s 22.9 - 07/13 [place] 35.8 /2015 [facility] HEMATOLOGY PT 13.0 s 12.0 - 07/13 [facility] 14.7 [facility] Brain wo Brain wo EXAM: CT HEAD WITHOUT CONTRAST 07/13 [facility] contrast contrast CT /2015 - [facility] CT Center DATE: 07/13/2016 Read by: Marcos Jo MD Dictated Date/time: 07/13/16 06:58 Electronically Signed by: Marcos Jo MD 07/13/16 07:01 FINAL REPORT INDICATION: 21 years old Female patient with history of DOG AND CAT FOOD COOK shunt placement , now complaining of headache. TECHNIQUE: Multiple axial images were obtained through the head from vertex to the skull base. Axial bone algorithm reconstruction images are provided. COMPARISON: Prior CT Scan of the head dated 07/12/2016 147 AM HEALTH AND SAFETY COORDINATOR DISCUSSION: Again identified is a right parietal approach DOG [employer] shunt catheter with distal tip lies within [...] adverse change. 2. Stable right parietal approach DOG [employer] shunt catheter with adequately decompressed ventricular system. 3. 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 CARDIAC Troponin-T null 0.000 - 07/12 [facility] ENZYMES 0.100 [facility] CARDIAC Total CK 33 unit/L 12 - 191 07/12 [facility] ENZYMES /2015 [facility] MYOGLOBIN Myoglobin 35 ng/mL 25 - 72 07/12 [place] /[address] [place] [address] Chest Chest 1view EXAM: XR CHEST 1 VIEW 07/12 - [facility] 1view DX DX /2015 [facility] DATE: 07/12/2016 4:10 PM HEALTH AND SAFETY COORDINATOR Read by: Albert Vail MD Dictated Date/time: 07/12/16 16:40 Electronically Signed by: Albert Vail 07/12/16 16:42 FINAL REPORT INDICATION: Chest pain COMPARISON: Yesterday TECHNIQUE: AP chest FINDINGS: Abandoned and calcified discontinuous DOG [employer] shunt tubing is redemonstrated over the right lower neck and anterior chest, coursing over the upper abdomen. Additional DOG [employer] shunt tubing is seen over t he right neck, extending over the midline chest and left upper quadrant; distal tubing is not well seen. Stable cardiomediastinal silhouette. No new pulmonary or pleural based abnormalities. IMPRESSION: No significant change. Brain Brain shunt EXAM: XR SHUNT SERIES 07/12 - [place] shunt series - Medical series DX This report was dictated by a Accounting Professor/Fellow. I have personally reviewed the images as Center well as the Resident's interpretation and agree with the findings. DATE: 07/12/2016 7:03 AM HEALTH AND SAFETY COORDINATOR Read by: Siva Lanza MD Resident: Siva [...] the L3 level. IMPRESSION: 1. Right programmable DOG [employer] CAT [employer] C[employer] shunt with unremarkable appearance. 2. 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 Skull 1 Skull 1 view EXAM: XR SKULL 1 VIEW 07/12 - [place] view DX DX /2015 - Medical This report was dictated by a Accounting Professor/Fellow. I have personally reviewed the images as Center well as the Resident's interpretation and agree with the findings. DATE: 07/12/2016 7:03 AM HEALTH AND SAFETY COORDINATOR Read by: Siva Lanza MD Resident: Siva [...] DRUG U Phencyc Negative Negative 07/12 SCREEN [facility] [place] (07/12/16 12:39 AM) DRUG U Opiate Scr Negative Negative 07/12 [facility] (07/12/16 12:39 AM) DRUG U Propoxyph Negative Negative 07/12 [facility] (07/12/16 12:39 AM) DRUG U Methadone Negative Negative 07/12 [facility] (07/12/16 12:39 AM) DRUG UDS Note See Note 07/12 [facility] (07/12/16 12:39 AM) DRUG U Benzodia Negative Negative 07/12 [facility] (07/12/16 12:39 AM) DRUG U Amph Scr Negative Negative 07/12 [facility] (07/12/16 12:39 AM) DRUG U Cannab Scr Negative Negative 07/12 [facility] (07/12/16 12:39 AM) DRUG U Cocaine Negative Negative 07/12 [facility] (07/12/16 12:39 AM) DRUG U Tori Scr Negative Negative 07/12 [facility] [place] (07/12/16 12:39 AM) HEMATOLOGY Platelet 306 K/CMM 133 - 450 07/12 [facility] HEMATOLOGY RDW 13.5 % 11.5 - 07/12 [place] 14. [facility] HEMATOLOGY MPV 9.3 fL 7.4 - 10.4 07/12 [facility] HEMATOLOGY RBC 4.46 M/CMM 4.20 - 07/12 [place] 5.40 /2015 [facility] HEMATOLOGY Hgb 12.6 g/dL 12.0 - 07/12 [place] 16.0 /2015 [facility] HEMATOLOGY Hct 37.4 % 36.0 - 07/12 [place] 48.0 /2015 [facility] HEMATOLOGY MCV 83.9 fL 80.0 - 07/12 [place] 98.0 /2015 [facility] HEMATOLOGY WBC 9.4 K/CMM 3.7 - 10.4 07/12 /2015 [facility] HEMATOLOGY MCH 28.3 pg 27.0 - 07/12 [place] 31.0 /2015 [facility] HEMATOLOGY MCHC 33.8 g/dL 32.0 - 07/12 [facility] 36.0 [facility] HEMATOLOGY PTT 33.7 s 22.9 - 07/12 [place] 35.8 /2015 [facility] HEMATOLOGY INR 1.02 0.85 - 07/12 [place] 1.17 [facility] HEMATOLOGY PT 13.6 s 12.0 - 07/12 [place] 14.7 /2015 [facility] HEMATOLOGY Segs-Bands # 5.5 K/CMM 1.5 - 8.1 07/12 [facility] HEMATOLOGY Monocytes # 0.6 K/CMM 0.0 - 0.8 07/12 [facility] HEMATOLOGY Lymphocytes 3.0 K/CMM 1.0 - 5.5 07/12 [place] /2015 [facility] HEMATOLOGY Basophils # 0.1 K/CMM 0.0 - 0.2 07/12 [facility] HEMATOLOGY Eosinophils 0.1 K/CMM 0.0 - 0.5 07/12 [place] /2016 [facility] HEMATOLOGY Basophils 0.9 % 0.0 - 1.0 07/12 /2015 [facility] HEMATOLOGY Segs 58.7 % 45.0 - 07/12 [place] 75.0 [facility] HEMATOLOGY Lymphocytes 32.5 % 20.0 - 07/12 [place] 40.0 /2016 [facility] HEMATOLOGY Monocytes 6.5 % 2.0 - 12.0 07/12 [facility] HEMATOLOGY Eosinophils 1.4 % 0.0 - 4.0 07/12 [facility] URINE AND UA WBC 1 /HPF 0 - 5 07/12 [facility] URINE AND Micro? Not Indicated 07/12 [facility] *NA* [place] (07/12/16 12:39 AM) URINE AND UA <=1.0 0.1 - 1.0 07/12 [facility] Urobilinogen mg/dL [facility] URINE AND UA Protein Negative Negative 07/12 [facility] mg/dL mg/dL [facility] URINE AND UA Glucose Negative Negative 07/12 [facility] mg/dL mg/dL [facility] URINE AND UA Turbidity Clear Clear 07/12 [facility] (07/12/16 12:39 AM) [place] URINE AND UA Spec Grav 1.011 <=1.030 07/12 [facility] URINE AND UA pH 6.5 5.0 - 8.0 07/12 [facility] URINE AND UA Color Yellow Yellow 07/12 [facility] *NA* [place] (07/12/16 12:39 AM) URINE AND UA Sq Epi Moderate Few /LPF 07/12 [facility] STOOL /LPF /2015 [facility] URINE AND UA Leuk Est Negative Negative 07/12 [facility] (07/12/16 12:39 AM) [place] URINE AND UA Ketones Negative Negative 07/12 [facility] mg/dL mg/dL [facility] URINE AND UA Bili Negative Negative 07/12 [facility] *NA* [place] (07/12/16 12:39 AM) URINE AND UA Blood Negative Negative 07/12 [facility] (07/12/16 12:39 AM) [place] URINE AND UA Nitrite Negative Negative 07/12 [facility] (07/12/16 12:39 AM) [place] URINE CHEM U Preg Negative Negative 07/12 [facility] (07/12/16 12:39 AM) Center BLOOD BANK Antibody Negative 07/12 [facility] RESULTS Scrn [facility] (07/11/16 11:50 PM) [place] BLOOD BANK ABO/Rh A POS 07/12 [facility] RESULTS [facility] CHEM PANEL Glucose Lvl 93 mg/dL 70 - 99 07/12 [facility] CHEM PANEL AGAP 15.5 meq/L 10.0 - 07/12 [place] 20.0 [facility] CHEM PANEL eGFR 113 07/12 Result Comment: The eGFR is calculated using the CKD-EPI formula. In most young, healthy individuals the eGFR will be >90 mL/ min/1.73m2. The eGFR declines with age. An eGFR of 60-89 may be normal in [facility] mL/min/1. some populations, particularly the elderly, for whom the CKD-EPI formula has not been extensively validated. Use of the eGFR is not recommended in the following populations: [address] Individuals with unstable creatinine concentrations, including [...] Lvl 142 meq/L 135 - 145 07/[address] CHEM PANEL Creatinine 0.75 mg/dL 0.50 - 07/12 [facility] 1.40 [facility] CHEM PANEL BUN 6 mg/dL 7 - 22 07/[address] CHEM PANEL Calcium Lvl 8.8 mg/dL 8.5 - 10.5 07/[address] CHEM PANEL CO2 26 meq/L 24 - 32 07/[address] CHEM PANEL Potassium 3.5 meq/L 3.5 - 5.1 07/12 [facility] CHEM PANEL Chloride Lvl 104 meq/L 95 - 109 07/[address] Brain wo Brain wo EXAM: CT HEAD WITHOUT CONTRAST 07/12 - [facility] contrast contrast CT /2015 - [facility] DATE: 07/12/2016 147 AM HEALTH AND SAFETY COORDINATOR Read by: Marcos Jo MD Dictated Date/time: 07/12/16 10:11 Electronically Signed by: Marcos Jo MD 07/12/16 10:22 FINAL REPORT INDICATION: 21 years old Female patient with history of DOG AND CAT FOOD COOK shunt placement , now complaining of headache. TECHNIQUE: Multiple axial images were obtained through the head from vertex to the skull base. Axial bone algorithm reconstruction images are provided. COMPARISON: Prior outside hospital CT Scan of the head dated 07/11/2016 DISCUSSION: Again identified is a right parietal approach [employer] shunt catheter with distal tip lies within [...] adverse change. 2. Stable right parietal approach DOG [employer] shunt catheter with adequately decompressed ventricular system. 3. 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 Chest Chest 1view EXAM: XR CHEST 1 VIEW 07/11 [facility] 1view DX DX /2015 - [facility] This report was dictated by a Accounting Professor/Fellow. I have personally reviewed the images as Center well as the Resident's interpretation and agree with the findings. DATE: 07/11/2016 2230 hours Read by: Macy Campos MD Resident: Macy Campos MD Dictated Date/time: 07/11/16 22:49 Electronically Signed by: Aron Pacheco 07/12/16 08:18 FINAL REPORT INDICATION: Mass COMPARISON: Chest radiograph 07/11/2016 TECHNIQUE: AP chest FINDINGS: Lines and tubes: Abandoned and calcified discontinuous [employer] shunt tubing is redemonstrated over the right lower neck and anterior chest, coursing over the upper abdomen. Additional DOG [employer]OOK shunt tubing is seen over the right [...] No acute cardiopulmonary abnormality. 2. Partially visualized DO[employer] shunt tubing as discussed above. Vital Signs Vital Sign Value Date Comments Source Respitory Rate 16 07/16/2016 [facility] Systolic (mm Hg) 134 07/16/2016 [facility] Diastolic (mm Hg) 63 07/16/2016 [facility] Temperature Oral (F) 98.2 F 07/16/2016 [facility] Temperature Oral (F) 98.6 F 07/16/2016 [facility] Respitory Rate 14 07/16/2016 [facility] Diastolic (mm Hg) 81 07/16/2016 [facility] Systolic (mm Hg) 131 07/16/2016 [facility] Weight 84.545 07/16/2016 [facility] Respitory Rate 20 07/16/2016 [facility] Heart Rate 110 07/16/2016 [facility] Temperature Oral (F) 98.8 F 07/16/2016 [facility] BMI Calculated 35.22 07/16/2016 [facility] Height 154.94 cm 07/16/2016 [facility] Systolic (mm Hg) 126 07/16/2016 [facility] Diastolic (mm Hg) 87 07/16/2016 [facility] Respitory Rate 12 07/14/[address] [facility] [place] [place] Temperature Oral (F) 97.9 F 07/14/[address] [facility] [place] [place] Systolic (mm Hg) 111 07/14/[address] [facility] [place] [place] Diastolic (mm Hg) 72 07/14/[address] [facility] [place] [place] Respitory Rate 16 07/14/[address] [facility] [place] [place] Systolic (mm Hg) 117 07/14/[address] [facility] [place] [place] Diastolic (mm Hg) 79 07/14/[address] [facility] [place] [place] Respitory Rate 13 07/14/[address] [facility] [place] [place] Systolic (mm Hg) 110 07/14/[address] [facility] [place] [place] Diastolic (mm Hg) 61 07/14/[address] [facility] [place] [place] Heart Rate 84 07/14/[address] [facility] [place] [place] Heart Rate 75 07/14/[address] [facility] [place] [place] Heart Rate 81 07/14/[address] [facility] [place] [place] Temperature Oral (F) 98.0 F 07/13/[address] [facility] [place] [place] Temperature Oral (F) 98.1 F 07/13/[address] [facility] [place] [place] Weight 84.545 07/12/[address] [facility] [place] [place] Weight 84.545 07/12/[address] [facility] [place] [place] Height 152.4 cm 07/12/[address] [facility] [place] [place] BMI Calculated 36.4 07/12/[address] [facility] [place] [place] Encounters Location Location Encounter Encounter Reason Attending ADM DC Status Source Details Type Number For Provider Date Date Visit [facility] [id number] [place] 07/12 07/14 Patsy Decker /2015 [facility] Emergency [id number] [place] 07/16 07/16 [facility] Kenyon Chung /2015 [facility] Procedures Procedure Code Date Perfomer Comments Source Creation of DOG AND CAT [employer]OD COOK [id number] [facility] shunt Creation of DOG AND CAT [employer] [id number] [facility]
[2018-09-24] MEDS ORDERED: MORPHINE 4 MG/ML SYR ONE (05:06)
[2018-09-24] MEDS ORDERED: ONDANSETRON 4 MG/2 ML VIAL ONE (05:06)
[2018-09-24] MEDS ORDERED: NA CHLORIDE 0.9% 1,000 ML ONE (05:07)
[2018-09-24] MEDS ORDERED: DOXYCYCLINE 100 MG CAP PO ONE (05:22)
[2018-09-24 05:25] LABS: Absolute Lymphocytes (CBC) 2.9 K/uL (0.7-4.9); Absolute Monocytes 0.9 K/uL (0.1-1.3); Absolute Neutrophil 9.7 K/uL (1.8-8.0); Basophils % 0.7 % (0-1.3); Eosinophils % 0.4 % (0-4.4); Hematocrit 41.2 % (36.0-45.0); Lymphocytes % 21.5 % (15.3-44.8); MPV 8.9 fL (7.6-11.3); Monocytes % 6.8 % (3.3-12.3); RBC Red Blood Cell Count 4.88 M/uL (3.86-4.86)
[2018-09-24 05:41] LABS: ALT/SGPT 21 U/L (12-78); AST/SGOT 16 U/L (15-37); Albumin 3.8 g/dL (3.4-5.0); Alkaline Phosphatase 95 U/L (45-117); BUN Blood Urea Nitrogen 12 mg/dL (7-18); Bicarbonate 22 mmol/L (21-32); Bilirubin Total 0.5 mg/dL (0.2-1.0); Glucose Level 97 mg/dL (74-106); Potassium 3.7 mmol/L (3.5-5.1); Protein, Total 7.9 g/dL (6.4-8.2); Sodium Level 141 mmol/L (136-145)
[2018-09-24] MEDS ORDERED: AZITHROMYCIN 250 MG TAB ONE (05:53)
--- NOTE | 2018-09-24 06:00 | EDPHYS ---
Physician Documentation [facility] Name: Shanna Estrella Age: 23 yrs Sex: Female : 1995 Arrival Date: 09/24/2018 Time: 04:12 Bed 18 Private MD: ED Physician Francisco Becerra HPI: 09/24 04:42 This 23 yrs old Female presents to ER via Ambulatory with complaints of Rash, rico pain under right arm. 04:42 The patient's rash thought to be caused by Dermatitis. The rash is located on the rico diaphragm, right breast and left breast. The rash can be described as confluent, erythematous, raised. Onset: The symptoms/episode began/occurred 5 day(s) ago. Associated signs and symptoms: Pertinent positives: burning sensation, Pain. Severity of symptoms: At their worst the symptoms were moderate in the emergency department the symptoms are unchanged. The patient has experienced similar episodes in the past, multiple times. 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 - Social history:: Smoking status: Patient uses tobacco products, 3 sticks per day, Patient/guardian denies using alcohol, street drugs. - Family history:: not pertinent. - Ebola Screening: : Patient negative for fever greater than or equal to 101.5 degrees Fahrenheit, and additional compatible Ebola Virus Disease symptoms Patient denies exposure to infectious person Patient denies travel to an Ebola-affected area in the 21 days before illness onset. ROS: 04:42 Constitutional: Negative for fever, chills, and weight loss, Eyes: Negative for injury, rico pain, redness, and discharge, ENT: Negative for injury, pain, and discharge, Neck: Negative for injury, pain, and swelling, Cardiovascular: Negative for chest pain, palpitations, and edema, Respiratory: Negative for shortness of breath, cough, wheezing, and pleuritic chest pain, Abdomen/GI: Negative for abdominal pain, nausea, vomiting, diarrhea, and constipation, Back: Negative for injury and pain, : Negative for injury, bleeding, discharge, and swelling, MS/Extremity: Negative for injury and deformity, Neuro: Negative for headache, weakness, numbness, tingling, and seizure, Psych: Negative for depression, anxiety, suicide ideation, homicidal ideation, and hallucinations, Allergy/Immunology: Negative for hives, rash, and allergies, Endocrine: Negative for neck swelling, polydipsia, polyuria, polyphagia, and marked weight changes, Hematologic/Lymphatic: Negative for swollen nodes, abnormal bleeding, and unusual bruising. 04:42 Skin: Positive for cellulitis, erythema, swelling, of the diaphragm, right breast and left breast. Exam: 04:42 Constitutional: This is a well developed, well nourished patient who is awake, alert, rico and in no acute distress. Head/Face: Normocephalic, atraumatic. Eyes: Pupils equal round and reactive to light, extra-ocular motions intact. Lids and lashes normal. Conjunctiva and sclera are non-icteric and not injected. Cornea within normal limits. Periorbital areas with no swelling, redness, or edema. ENT: Nares patent. No nasal discharge, no septal abnormalities noted. Tympanic membranes are normal and external auditory canals are clear. Oropharynx with no redness, swelling, or masses, exudates, or evidence of obstruction, uvula midline. Mucous membranes moist. Neck: Trachea midline, no thyromegaly or masses palpated, and no cervical lymphadenopathy. Supple, full range of motion without nuchal rigidity, or vertebral point tenderness. No Meningismus. Respiratory: Lungs have equal breath sounds bilaterally, clear to auscultation and percussion. No rales, rhonchi or wheezes noted. No increased work of breathing, no retractions or nasal flaring. Abdomen/GI: Soft, non-tender, with normal bowel sounds. No distension or tympany. No guarding or rebound. No evidence of tenderness throughout. Back: No spinal tenderness. No costovertebral tenderness. Full range of motion. MS/ Extremity: Pulses equal, no cyanosis. Neurovascular intact. Full, normal range of motion. Neuro: Awake and alert, GCS 15, oriented to person, place, time, and situation. Cranial nerves II-XII grossly intact. Motor strength 5/5 in all extremities. Sensory grossly intact. Cerebellar exam normal. Normal gait. Psych: Awake, alert, with orientation to person, place and time. Behavior, mood, and affect are within normal limits. 04:42 Chest/axilla: Inspection: cellulitis, of the diaphragm, right breast and left breast Palpation: tenderness, that is mild, of the diaphragm and right breast, Breasts: cellulitis, that is mild of the right breast, of the left breast, Lymph nodes: lymphadenopathy is not appreciated. Vital Signs: 04:35 BP 129 / 90; Pulse 110; Resp 19; Temp 99.1; Pulse Ox 98% ; Weight 83.91 kg; Height 5 rr5 ft. 2 in. (157.48 cm); Pain 10/10; 05:09 BP 113 / 80; Pulse 99; Resp 17; Pulse Ox 96% ; rr5 05:50 BP 111 / 71; Pulse 98; Resp 16; Pulse Ox 99% ; rr5 06:45 BP 113 / 71; Pulse 95; Resp 16; Pulse Ox 98% ; rr5 04:35 Body Mass Index 33.83 (83.91 kg, 157.48 cm) rr5 MDM: 04:26 Patient medically screened. [facility] 04:46 Data reviewed: vital signs, nurses notes, lab test result(s), CBC, electrolytes, [facility] hepatic panel, urinalysis. 09/24 04:42 Order name: CBC with Diff; Complete Time: 05:35 [facility] 09/24 04:42 Order name: Comprehensive Metabolic Panel; Complete Time: 05:58 [facility] 09/24 05:03 Order name: Urine Culture [facility] 09/24 05:03 Order name: Urine Culture EDMT 09/24 06:09 Order name: Urine Dipstick--Ancillary (enter results); Complete Time: 07:08 [facility] 09/24 06:09 Order name: Urine --Ancillary (enter results); Complete Time: 07:08 [facility] 09/24 04:42 Order name: Urine Dipstick-Ancillary (obtain specimen); Complete Time: 05:07 [facility] 09/24 04:42 Order name: Urine Test (obtain specimen); Complete Time: 05:07 [facility] 09/24 04:42 Order name: Vital Signs; Complete Time: 05:07 rico Administered Medications: 04:58 Drug: Zofran 4 mg Route: IVP; Site: right forearm; rr5 07:00 Follow up: Response: No adverse reaction rr5 05:00 Drug: morphine 2 mg Route: IVP; Site: right forearm; rr5 07:00 Follow up: Response: No adverse reaction rr5 05:07 Drug: NS 0.9% 1000 ml Route: IV; Rate: 1 bolus; Site: right forearm; rr5 07:00 Follow up: Response: No adverse reaction; IV Status: Completed infusion; IV Intake: rr5 1000ml 05:09 Not Given (Duplicate Order): Biaxin 500 mg PO once rico 05:15 Drug: Doxycycline 200 mg Route: PO; cc3 07:00 Follow up: Response: No adverse reaction rr5 05:33 CANCELLED (Duplicate Order): ERYTHromycin 500 mg PO once rico 05:34 CANCELLED (Duplicate Order): Nystatin-Triamcinolone 1 application Topical once rico 05:49 CANCELLED (Other Intervention Used; not available): Triamcinolone Cream (0.5 %) 1 rr5 application Topical once 05:50 Drug: morphine 2 mg Route: IVP; Site: right forearm; rr5 07:00 Follow up: Response: No adverse reaction rr5 05:53 Drug: Zithromax 1 grams Route: PO; rr5 07:28 Follow up: Response: No adverse reaction rr5 07:12 Drug: Bactrim (160 mg-800 mg (DS) 1 tablet Route: PO; em 07:47 Follow up: Response: No adverse reaction em 07:44 Drug: Nystatin-Triamcinolone 1 application Route: Topical; Site: affected area; em 07:47 Follow up: Response: Medication administered at discharge. em Disposition: 09/24/18 05:59 Discharged to Home. Impression: Erythema intertrigo, Dermatitis, unspecified, Cellulitis and acute lymphangitis, unspecified - breast. - Condition is Stable. - Discharge Instructions: Cellulitis, Adult, Rash, Cellulitis, Adult, [id number]-[id number], Rash, [id number]-[id number], Intertrigo, Pnnq-wu-Vwax, Intertrigo. - Prescriptions for Tylenol- Codeine #3 300-30 mg Oral Tablet - take 2 tablet by ORAL route every 6 hours As needed; 30 tablet. Doxycycline Hyclate 100 mg Oral Tablet - take 1 tablet by ORAL route every 12 hours; 20 tablet. Nystatin- Triamcinolone 100,000-0.1 unit/gram-% Topical Ointment - apply 1 application by TOPICAL route 2 times per day; 1 tube. Zithromax 500 mg Oral Tablet - take 1 tablet by ORAL route once daily for 5 days; 5 tablet. Bactrim DS 800- 160 mg Oral Tablet - take 1 tablet by ORAL route every 12 hours for 10 days; 20 tablet. - Medication Reconciliation Form, Thank You Letter, Antibiotic Education, Prescription Opioid Use form. - Follow up: Private Physician; When: 2 - 3 days; Reason: Recheck today's complaints, Continuance of care, Re-evaluation by your physician. - Problem is new. - Symptoms have improved. Signatures: Dispatcher [employer] Francisco Eagle MD MD cha Munoz, Edgar, RN FAMILY PRACTICE RN FAMILY PRACTICE Chela Garcia cc3 Luis Monroe, RN RN rr5 Corrections: (The following items were deleted from the chart) 05:33 05:10 ERYTHromycin 500 mg PO once ordered. rico rico 05:34 05:10 Nystatin-Triamcinolone Ointment 1 application Topical once ordered. formerly [facility] 05:49 05:34 Triamcinolone Cream (0.5 %) 1 application Topical once ordered. [facility] rr5 07:09 05:59 09/24/2018 05:59 Discharged to Home. Impression: Erythema intertrigo; Dermatitis, rico unspecified. Condition is Stable. Discharge Instructions: Cellulitis, Adult, Cellulitis, Adult, Efkp-xy-[id number], Intertrigo, Vpca-dp-Ksoy, Intertrigo, Rash, Rash, [id number]-[id number]. Prescriptions for Tylenol-Codeine #3 300-30 mg Oral Tablet - take 2 tablet by ORAL route every 6 hours As needed; 30 tablet, Doxycycline Hyclate 100 mg Oral Tablet - take 1 tablet by ORAL route every 12 hours; 20 tablet, Nystatin-Triamcinolone 100,000-0.1 unit/gram-% Topical Ointment - apply 1 application by TOPICAL route 2 times per day; 1 tube, Zithromax 500 mg Oral Tablet - take 1 tablet by ORAL route once daily for 5 days; 5 tablet. and Forms are Medication Reconciliation Form, Thank You Letter, Antibiotic Education, Prescription Opioid Use. Follow up: Private Physician; When: 2 - 3 days; Reason: Recheck today's complaints, Continuance of care, Re-evaluation by your physician. Problem is new. Symptoms have improved. [facility] 07:47 07:09 09/24/2018 05:59 Discharged to Home. Impression: Erythema intertrigo; Dermatitis, em unspecified; Cellulitis and acute lymphangitis, unspecified - breast. Condition is Stable. Discharge Instructions: Cellulitis, Adult, Cellulitis, Adult, Gmfh-ws-Whon, Intertrigo, Yujy-js-Zavx, Intertrigo, Rash, Rash, [id number]-[id number]-[id number]. Prescriptions for Tylenol-Codeine #3 300-30 mg Oral Tablet - take 2 tablet by ORAL route every 6 hours As needed; 30 tablet, Doxycycline Hyclate 100 mg Oral Tablet - take 1 tablet by ORAL route every 12 hours; 20 tablet, Nystatin-Triamcinolone 100,000-0.1 unit/gram-% Topical Ointment - apply 1 application by TOPICAL route 2 times per day; 1 tube, Zithromax 500 mg Oral Tablet - take 1 tablet by ORAL route once daily for 5 days; 5 tablet. and Forms are Medication Reconciliation Form, Thank You Letter, Antibiotic Education, Prescription Opioid Use. Follow up: Private Physician; When: 2 - 3 days; Reason: Recheck today's complaints, Continuance of care, Re-evaluation by your physician. Problem is new. Symptoms have improved. [facility]
--- NOTE | 2018-09-24 06:00 | ER ---
Nurse's Notes [facility] Name: Shanna Estrella Age: 23 yrs Sex: Female : 1995 Arrival Date: 09/24/2018 Time: 04:12 Bed 18 Private MD: Diagnosis: Erythema intertrigo;Dermatitis, unspecified;Cellulitis and acute lymphangitis, unspecified-breast Presentation: 09/24 04:34 Presenting complaint: Patient states: I'm having heat rash under my right breast area rr5 for 3-4 days now. having pain at my right armpit pain score of 10/10. Transition of care: patient was not received from another setting of care. Onset of symptoms was September 21, 2018. Risk Assessment: Do you want to hurt yourself or someone else? Patient reports no desire to harm self or others. Initial Sepsis Screen: Does the patient meet any 2 criteria? No. Patient's initial sepsis screen is negative. Does the patient have a suspected source of infection? No. Patient's initial sepsis screen is negative. Care prior to arrival: I wash it with baby soap and baby powder. 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 - Social history:: Smoking status: Patient uses tobacco products, 3 sticks per day, Patient/guardian denies using alcohol, street drugs. - Family history:: not pertinent. - Ebola Screening: : Patient negative for fever greater than or equal to 101.5 degrees Fahrenheit, and additional compatible Ebola Virus Disease symptoms Patient denies exposure to infectious person Patient denies travel to an Ebola-affected area in the 21 days before illness onset. Screenin:35 Abuse screen: Denies threats or abuse. Denies injuries from another. Nutritional rr5 screening: No deficits noted. Tuberculosis screening: No symptoms or risk factors identified. Fall Risk IV access (20 points). Total Zamora Fall Scale indicates No Risk (0-24 pts). Assessment: 04:35 General: Appears in no apparent distress. uncomfortable, Behavior is calm, cooperative, rr5 appropriate for age. Pain: Complains of pain in diaphragm, right breast and left breast Pain does not radiate. Pain currently is 10 out of 10 on a pain scale. Quality of pain is described as aching, Pain began gradually, Is intermittent. Neuro: Level of Consciousness is awake, alert, obeys commands, Oriented to person, place, time, situation, Appropriate for age. 04:35 Cardiovascular: Capillary refill < 3 seconds Patient's skin is warm and dry. rr5 Respiratory: Airway is patent Respiratory effort is even, unlabored, Respiratory pattern is regular, symmetrical. GI: No signs and/or symptoms were reported involving the gastrointestinal system. : No signs and/or symptoms were reported regarding the genitourinary system. EENT: No signs and/or symptoms were reported regarding the EENT system. Derm: Rash noted that is red, on diaphragm, right breast and left breast. Musculoskeletal: Capillary refill < 3 seconds, Range of motion: intact in all extremities. 05:33 Reassessment: Patient appears in no apparent distress at this time. Patient is alert, rr5 oriented x 3, equal unlabored respirations, skin warm/dry/pink. Patient states symptoms have improved. 05:50 Reassessment: Patient appears in no apparent distress at this time. as verbalized by rr5 the patient every time I moved it hurts so bad. stat medication given. 06:15 Reassessment: Patient appears in no apparent distress at this time. patient requested rr5 the ED provider to check reassess her before discharge. ED provider informed. 07:00 Reassessment: Patient appears in no apparent distress at this time. Patient is alert, rr5 oriented x 3, equal unlabored respirations, skin warm/dry/pink. reexamined by dr. becerra per patient request. ED Provider added stat order medication before discharge. Patient states symptoms have improved. Vital Signs: 04:35 BP 129 / 90; Pulse 110; Resp 19; Temp 99.1; Pulse Ox 98% ; Weight 83.91 kg; Height 5 rr5 ft. 2 in. (157.48 cm); Pain 10/10; 05:09 BP 113 / 80; Pulse 99; Resp 17; Pulse Ox 96% ; rr5 05:50 BP 111 / 71; Pulse 98; Resp 16; Pulse Ox 99% ; rr5 06:45 BP 113 / 71; Pulse 95; Resp 16; Pulse Ox 98% ; rr5 04:35 Body Mass Index 33.83 (83.91 kg, 157.48 cm) rr5 ED Course: 04:12 Patient arrived in ED. am2 04:26 Francisco Becerra MD is Attending Physician. rico 04:34 Luis Monroe RN is Primary Nurse. rr5 04:35 Patient has correct armband on for positive identification. Placed in gown. Bed in low rr5 position. Call light in reach. Side rails up X2. Pulse ox on. NIBP on. 04:35 Warm blanket given. rr5 04:39 Triage completed. rr5 04:46 Arm band placed on. rr5 04:50 Inserted saline lock: 20 gauge in right forearm, using aseptic technique. Blood cc3 collected. 07:00 IV discontinued, intact, bleeding controlled, No redness/swelling at site. Pressure rr5 dressing applied. 07:27 No provider procedures requiring assistance completed. rr5 Administered Medications: 04:58 Drug: Zofran 4 mg Route: IVP; Site: right forearm; rr5 07:00 Follow up: Response: No adverse reaction rr5 05:00 Drug: morphine 2 mg Route: IVP; Site: right forearm; rr5 07:00 Follow up: Response: No adverse reaction rr5 05:07 Drug: NS 0.9% 1000 ml Route: IV; Rate: 1 bolus; Site: right forearm; rr5 07:00 Follow up: Response: No adverse reaction; IV Status: Completed infusion; IV Intake: rr5 1000ml 05:09 Not Given (Duplicate Order): Biaxin 500 mg PO once rico 05:15 Drug: Doxycycline 200 mg Route: PO; cc3 07:00 Follow up: Response: No adverse reaction rr5 05:33 CANCELLED (Duplicate Order): ERYTHromycin 500 mg PO once rico 05:34 CANCELLED (Duplicate Order): Nystatin-Triamcinolone 1 application Topical once rico 05:49 CANCELLED (Other Intervention Used; not available): Triamcinolone Cream (0.5 %) 1 rr5 application Topical once 05:50 Drug: morphine 2 mg Route: IVP; Site: right forearm; rr5 07:00 Follow up: Response: No adverse reaction rr5 05:53 Drug: Zithromax 1 grams Route: PO; rr5 07:28 Follow up: Response: No adverse reaction rr5 07:12 Drug: Bactrim (160 mg-800 mg (DS) 1 tablet Route: PO; em 07:47 Follow up: Response: No adverse reaction em 07:44 Drug: Nystatin-Triamcinolone 1 application Route: Topical; Site: affected area; em 07:47 Follow up: Response: Medication administered at discharge. em Intake: 07:00 IV: 1000ml; Total: 1000ml. rr5 Outcome: 05:59 Discharge ordered by . [facility] 07:00 Discharged to home ambulatory, with family. rr5 07:00 Condition: stable 07:00 Discharge instructions given to patient, Instructed on discharge instructions, follow up and referral plans. medication usage, Demonstrated understanding of instructions, follow-up care, medications, Prescriptions given X 5 07:47 Patient left the ED. em Signatures: Francisco Becerra MD MD cha Munoz, Edgar, SOIL FIELD TECHNICIAN SOIL FIELD TECHNICIAN em Annalee Henderson am2 Chela Amaral cc3 Luis Monroe, RN RN rr5 Corrections: (The following items were deleted from the chart) 04:47 03:35 BP 129 / 90; Pulse 110bpm; Resp 19bpm; Pulse Ox 98%; Temp 99.1F; 83.91 kg; Height rr5 5 ft. 2 in.; BMI: 33.8; Pain 10; rr5 04:47 03:35 LMP 09/24/2018 rr5 rr5
[2018-09-24 06:16] LABS: Urine Blood 2+ (NEG); Urine Glucose NEGATIVE (NEG); Urine Protein TRACE (NEG); Urine Specific Gravity >1.030 (1.005-1.030)
[2018-09-24] MEDS ORDERED: NYSTATIN/TRIAMCIN OINT 15 GM TOP ONE (07:15)
[2018-09-24] MEDS ORDERED: SMZ./TMP. 800/160 MG TABLET ONE (07:23)
== END 2018-09-24 07:47 | disposition home or self-care (01) ==
LOC: ER 04:09
DX: L30.4 Erythema intertrigo (principal); L30.9 Dermatitis, unspecified; N61.0 Mastitis without abscess; L03.323 Acute lymphangitis of chest wall; Z72.0 Tobacco use; Z88.0 Allergy status to penicillin; Z88.1 Allergy status to other antibiotic agents; Z88.8 Allergy status to other drugs, medicaments and biological substances; Z91.048 Other nonmedicinal substance allergy status
CPT/HCPCS: 36415; 80053; 81003; 81025; 85025; 87086; 87088; 96361; 96374; 96375; 99284; J2405; J7030

== ENCOUNTER 2018-11-30 12:26 | Emergency (ER) | payer SELFPAY ==
--- OUTSIDE RECORDS SUMMARY | 2018-11-30 12:31 | XMS REPORT | Continuity of Care Document ---
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 Hydrocephalus Resolved Problem 07/19/2016 [facility] Depression Resolved Problem 07/19/2016 [facility] PTSD (<span Resolved Problem 07/19/2016 ID="[id number] [facility],M ">Confirmed</spa H [place] n>) [facility] PTSD (<span Resolved Problem 07/19/2016 ID="[id number] [facility],M ">Confirmed</spa H [place] n>) [facility] HEADACHE Active [facility] Medications Medication Details Route Status Patient Ordering Order Source Instructions Provider Date Ketorolac 60 mg, Route: No Longer IM, Drug form: Active 2015 [facility] INJ, ONCE, Dosing Weight 84.545, kg, Priority: STAT, Start date: 07/15/16 23:21:00 [employer], Stop date: 07/15/16 23:21:00 [employer] Valium 5 mg, Route: No Longer IM, Drug form: Active 2015 [facility] INJ, ONCE, Dosing Weight 84.545, kg, Priority: STAT, Start date: 07/15/16 23:21:00 [employer], Stop date: 07/15/16 23:21:00 [employer] Ativan 1 mg, 0.5 mL, No Longer [facility] Route: IVP, Active [facility] Medical Drug form: INJ, Center ONCE, Dosing Weight 84.545, kg, PRN Anxiety, Start date: 07/13/16 23:15:00 CSTNotes: (Same as: Ativan) nystatin 1 appl, Route: No Longer [facility] topical 100,000 TOP, TID, Drug Active 2015 Medical units/g cream form: CRM, Center Start date: 07/13/16 17:00:00 [employer], Duration: 30 day, Stop date: 08/12/16 13:00:00 CSTNotes: (Same as:Mycostatin, Nilstat) For external use only. Nystatin [id number] 1 appl, Route: Inactive [facility] UNT/ML / TOP, TID, Drug 2015 Medical Triamcinolone form: [facility] [place] Acetonide 1 Start date: MG/ML Topical 07/13/16 Cream 9:00:00 [employer], Duration: 30 day, Stop date: 08/11/16 17:00:00 [employer] Sodium Chloride 250 mL, 250 Inactive [facility] 0.154 MEQ/ML ml/hr, Infuse 2015 Medical Injectable Over: 1 hr, [place] Solution Route: IV, 250, Drug form: INJ, ONCE, Priority: STAT, Dosing Weight 84.545 kg, Start date: 07/12/16 16:18:00 [employer], Duration: 1 doses or times, Stop date: 07/12/16 16:18:00 [employer] Promethazine 12.5 mg, 0.5 No Longer [facility] mL, Route: Active 2015 Medical IVPB, Drug Center form: INJ, Q4H, Dosing Weight 84.545, kg, PRN as needed for nausea/vomiting , Start date: 07/12/16 16:17:00 [employer], Duration: 30 day, Stop date: 08/11/16 16:16:00 CSTNotes: Do not give IV push. (Same as: Phenergan) Docusate 100 mg, 1 cap, No Longer [facility] Route: PO, Drug Active 2015 Medical form: CAP, Center Q12H, Dosing Weight 84.545, kg, Start date: 07/12/16 9:00:00 [employer], Duration: 30 day, Stop date: 08/10/16 21:00:00 CSTNotes: (Same as: Colace) (Do Not Crush) sennosides, LONG TERM 8.6 mg, 1 tab, No Longer [place] Route: PO, Drug Active 2015 Medical Form: TAB, Center Dosing Weight 84.545, kg, Q12H, Start date: 07/12/16 9:00:00 [employer], Duration: 30 day, Stop date: 08/10/16 21:00:00 CSTNotes: (Same as: Senokot) Saline Flush 10 ml, Route: No Longer [place] 0.9% IVP, Drug Form: Active 2015 Medical INJ, Dosing Center Weight 84.545, kg, Q12H, Start date: 07/12/16 9:00:00 [employer], Duration: 30 day, Stop date: 08/10/16 21:00:00 [...] Pain Score 1-3, Start date: 07/12/16 7:14:00 [employer], Duration: 30 day, Stop date: 08/11/16 7:13:00 [...] Abnormal Lab Result, Start date: 07/11/16 22:18:00 [employer], Duration: 30 day, Stop date: 08/10/16 22:17:00 [...] 50% 25 gm, 50 mL, No Longer [facility] Syringe Route: IVP, Active 2015 Medical Drug Form: INJ, Center Dosing Weight 84.545, kg, PRN, PRN Abnormal Lab Result, Start date: 07/11/16 22:18:00 [employer], Duration: 30 day, Stop date: 08/10/16 22:17:00 [employer] Bisacodyl 10 mg, 1 supp, No Longer [facility] Route: DE, Drug Active 2015 Medical form: SUPP, Center Daily, Dosing Weight 84.545, kg, PRN Constipation, Start date: 07/11/16 22:18:00 [employer], Duration: 30 day, Stop date: 08/10/16 22:17:00 CSTNotes: (Same As: Dulcolax, Bisco-Lax) Saline Flush 10 ml, Route: No Longer [facility] 0.9% IVP, Drug Form: Active 2015 Medical INJ, Dosing Center Weight 84.545, kg, PRN, PRN Line Flush, Start date: 07/11/16 22:18:00 [employer], Duration: 30 day, Stop date: 08/10/16 22:17:00 CSTNotes: (Same as: BD Posiflush) Ondansetron 4 mg, 2 mL, No Longer [facility] Route: IVP, Active 2015 Medical Drug form: INJ, Center Q8H, Dosing Weight 84.545, kg, PRN Nausea & Vomiting, Start date: 07/11/16 22:18:00 [employer], Duration: 30 day, Stop date: 08/10/16 22:17:00 CSTNotes: (Same as: Leeanne) MEDICATION WASTE Product Size: 4 mg Product Wasted: _0__ mg Acetaminophen 1 tab, Route: No Longer [place] 325 MG / PO, Drug Form: Active 2016 Medical Hydrocodone TAB, Dosing Center Bitartrate 10 Weight 84.545, MG Oral Tablet kg, Q4H, PRN Pain Score 4-6, Start date: 07/11/16 22:18:00 [employer], Duration: 30 day, Stop date: 08/10/16 22:17:00 CSTNotes: Do not exceed 4gm/day of acetaminophen. (Same as: [place] 325/10) Acetaminophen 1 tab, Route: No Longer [place] 325 MG / PO, Drug Form: Active 2016 Medical Hydrocodone TAB, Dosing Center Bitartrate 5 MG Weight 84.545, Oral Tablet kg, Q4H, PRN Pain Score 1-3, Start date: 07/11/16 22:18:00 [employer], Duration: 30 day, Stop date: 08/10/16 22:17:00 CSTNotes: (Same as: [place] 325/5) Do not exceed 4gm/day of acetaminophen. Sodium Chloride 1,000 mL, Rate: No Longer [place] 0.154 MEQ/ML 75 ml/hr, Active 2015 Medical Injectable Infuse over: Center Solution 13.3 hr, Route: IV, Dosing Weight 84.545 kg, Total Volume: 1,000, Start date: 07/11/16 22:18:00 [employer], Duration: 30 day, Stop date: 08/10/16 22:17:00 [employer] Reglan 10 mg, 2 mL, Inactive [place] Route: IVP, 2015 Medical Drug form: INJ, Center ONCE, Dosing Weight 84.545, kg, Priority: STAT, Start date: 07/11/16 20:59:00 [employer], Stop date: 07/11/16 20:59:00 CSTNotes: (Same as: Reglan) Sodium Chloride 1,000 mL, 1,000 Inactive [place] 0.154 MEQ/ML ml/hr, Infuse 2016 Medical Injectable Over: 1 hr, Center Solution Route: IV, 1,000, Drug form: INJ, ONCE, Priority: STAT, Dosing Weight 84.545 kg, Start date: 07/11/16 20:59:00 [employer], Duration: 1 doses or times, Stop date: 07/11/16 20:59:00 [employer] Acetaminophen 1,000 mg, 2 Inactive [place] tab, Route: PO, 2016 Medical Drug form: TAB, Center ONCE, Dosing Weight 84.545, kg, Priority: STAT, Start date: 07/11/16 20:59:00 [employer], Stop date: 07/11/16 20:59:00 CSTNotes: Max acetaminophen 4000 mg/day (4 gm/day). (Same as: Tylenol Extra Strength) Allergies, Adverse Reactions, Alerts Substance Category Reaction Severity Reaction Status Date Comments Source type Reported amoxicillin Assertion Drug Active MH allergy [facility] LaMICtal Assertion Drug Active MH allergy [facility] Medical Tape Assertion Drug Active MH allergy [place] penicillins Assertion Drug Active MH allergy [facility] Immunizations Immunization Date Given Site Status Last Updated Comments Source Results Order Name Results Value Reference Date Interpretation Comments Source Range Brain Brain shunt Clinical Indication:21 years Female with Pain and swelling 07/15 - shunt series DX /2015 - [facility] series DX Comparison: Shunt study 07/12/2016 Read by: Scot Saenz MD Dictated Date/time: 07/15/16 23:38 FINDINGS: Electronically Signed by: Scot Saenz MD 07/15/16 23:41 FINAL REPORT Radiographs of the right UI PROGRAMMER shunt obtained from the skull to the abdomen. Unchanged appearance of the UI PROGRAMMER shunt, which goes from the right lateral ventricle along the right neck, traverses the right upper chest to the left lower chest, and terminates in the left upper quadrant. No discontinuity of the UI PROGRAMMER shunt. 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 IMPRESSION: Unchanged appearance of right UI PROGRAMMER shunt. No discontinuity of the shunt catheter or other significant radiographic abnormality. Brain wo Brain wo Exam: MRI brain without and with contrast. 07/13 - [facility] contrast contrast MRI /2015 - Medical [...] brain without and with contrast. 07/13 - [facility] contrast contrast MRI /2015 - Medical [...] CSF 34 mg/dL 15 - 45 07/13 [facility] FLUIDS [facility] BODY Color CSF Colorless Colorless 07/13 [place] FLUIDS [facility] (07/13/16 7:35 AM) Center BODY Clarity CSF Clear Clear 07/13 [facility] FLUIDS [facility] (07/13/16 7:35 AM) Center BODY Tube Num CSF xxxxxxx 07/13 [place] FLUIDS [facility] (07/13/16 7:35 AM) Center BODY RBC CSF 0 /mm3 0 - 03 07/13 [facility] FLUIDS [facility] BODY Supernat CSF Colorless Colorless 07/13 [place] FLUIDS [facility] (07/13/16 7:35 AM) Center BODY WBC CSF 1 /mm3 0 - 53 07/13 [facility] FLUIDS [facility] BODY Glucose CSF 56 mg/dL 45 - 80 07/13 [facility] FLUIDS /2015 [facility] IMMUNOLOGY PE Interp CSF 07/13 [facility] protein [facility] electropho [place] resis did not reveal evidence of an oligoclona l process in the RESOURCES REPRESENTATIVE. The CSF IgG index is within the reference range indicating that there is no elevation in intracereb ral IgG synthesis. There is also no evidence of increased permeabili ty of the blood brain barrier based on the CSF/serum albumin ratio.The electronic medical record has been reviewed for relevant history.I have personally reviewed the test results and concur with the resident's interpreta tion.CPT: [id number] IMMUNOLOGY Description The gel 07/13 [facility] CSF demonstrat [facility] appropriat e resolution of the main protein bands. The gamma region shows continuous distributi on of proteins both in the CSF and in the serum. No oligoclona l bands are detected. IMMUNOLOGY IgG (CPE) 1010 mg/dL 694 - 1618 07/13 [facility] IMMUNOLOGY Alb (CPE) 4100.0 3400.0 - 07/13 [facility] mg/dL 5000.0 [facility] IMMUNOLOGY IgG Lvl CSF 1.7 mg/dL 2.0 - 4.0 07/13 [facility] IMMUNOLOGY Alb CSF 14.7 mg/dL 14.0 - 07/13 [facility] (CPE) 25.0 [facility] IMMUNOLOGY IgG Index 0.5 mg/dL 0.3 - 0.7 07/13 [facility] CHEM PANEL eGFR 128 07/13 Result Comment: The eGFR is calculated using the CKD-EPI formula. In most young, healthy individuals the eGFR will be >90 mL/ min/1.73m2. The eGFR declines with age. An eGFR of 60-89 may be normal in [facility] mL/min/1.7 some populations, particularly the elderly, for whom the CKD-EPI formula has not been extensively validated. Use of the eGFR is not recommended in the following populations: [address] Individuals with unstable creatinine concentrations, including [...] Lvl 8.8 mg/dL 8.5 - 10.5 07/13 [facility] CHEM PANEL CO2 23 meq/L 24 - 32 07/13 [facility] CHEM PANEL Chloride Lvl 108 meq/L 95 - 109 07/13 [facility] CHEM PANEL Creatinine 0.61 mg/dL 0.50 - 07/13 [facility] Lvl 1.40 [facility] CHEM PANEL Sodium Lvl 142 meq/L 135 - 145 07/13 [facility] CHEM PANEL BUN 7 mg/dL 7 - 22 07/13 [facility] CHEM PANEL Potassium 3.9 meq/L 3.5 - 5.1 07/13 [facility] Lvl /2015 [facility] CHEM PANEL Glucose Lvl 88 mg/dL 70 - 99 07/13 [facility] CHEM PANEL AGAP 14.9 meq/L 10.0 - 07/13 20.0 [facility] HEMATOLOGY Lymphocytes 37.9 % 20.0 - 07/13 40.0 [facility] HEMATOLOGY Segs 52.1 % 45.0 - 07/13 75.0 [facility] HEMATOLOGY Monocytes 7.3 % 2.0 - 12.0 07/13 [facility] HEMATOLOGY Basophils 0.8 % 0.0 - 1.0 07/13 [facility] HEMATOLOGY Eosinophils 1.9 % 0.0 - 4.0 07/13 [facility] HEMATOLOGY Segs-Bands # 3.8 K/CMM 1.5 - 8.1 07/13 [facility] HEMATOLOGY Eosinophils 0.1 K/CMM 0.0 - 0.5 07/13 [facility] HEMATOLOGY Monocytes # 0.5 K/CMM 0.0 - 0.8 07/13 [facility] HEMATOLOGY Lymphocytes 2.7 K/CMM 1.0 - 5.5 07/13 [facility] HEMATOLOGY Basophils # 0.1 K/CMM 0.0 - 0.2 07/13 [facility] HEMATOLOGY RBC 4.53 M/CMM 4.20 - 07/13 5.40 [facility] HEMATOLOGY WBC 7.2 K/CMM 3.7 - 10.4 07/13 [facility] HEMATOLOGY Hct 38.5 % 36.0 - 07/13 48.0 [facility] HEMATOLOGY Hgb 13.0 g/dL 12.0 - 07/13 16.0 [facility] HEMATOLOGY MCHC 33.9 g/dL 32.0 - 07/13 36.0 [facility] HEMATOLOGY MCH 28.8 pg 27.0 - 07/13 31.0 [facility] HEMATOLOGY RDW 14.0 % 11.5 - 07/13 14. [facility] HEMATOLOGY MPV 9.2 fL 7.4 - 10.4 07/13 [facility] HEMATOLOGY Platelet 283 K/CMM 133 - 450 07/13 [facility] HEMATOLOGY MCV 84.9 fL 80.0 - 07/13 [place] 98.0 /2015 [facility] HEMATOLOGY INR 0.96 0.85 - 07/13 [place] 1.17 /2015 [facility] HEMATOLOGY PTT 31.9 s 22.9 - 07/13 [place] 35.8 /2015 [facility] HEMATOLOGY PT 13.0 s 12.0 - 07/13 [facility] 14.7 [facility] Brain wo Brain wo EXAM: CT HEAD WITHOUT CONTRAST 07/13 [facility] contrast contrast CT /2015 - [facility] CT Center DATE: 07/13/2016 Read by: Marcos Jo MD Dictated Date/time: 07/13/16 06:58 Electronically Signed by: Marcos Jo MD 07/13/16 07:01 FINAL REPORT INDICATION: 21 years old Female patient with history of UI PROGRAMMER shunt placement , now complaining of headache. TECHNIQUE: Multiple axial images were obtained through the head from vertex to the skull base. Axial bone algorithm reconstruction images are provided. COMPARISON: Prior CT Scan of the head dated 07/12/2016 147 AM [employer]ERSON DISCUSSION: Again identified is a right parietal approach UI PROGRAMMER shunt catheter with distal tip lies within [...] adverse change. 2. Stable right parietal approach UI PROGRAMMER shunt catheter with adequately decompressed ventricular system. 3. 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 CARDIAC Troponin-T null 0.000 - 07/12 [facility] ENZYMES 0.100 [facility] CARDIAC Total CK 33 unit/L 12 - 191 07/12 [facility] ENZYMES /2015 [facility] MYOGLOBIN Myoglobin 35 ng/mL 25 - 72 07/12 [place] /[address] [place] [address] Chest Chest 1view EXAM: XR CHEST 1 VIEW 07/12 - [facility] 1view DX DX /2015 [facility] DATE: 07/12/2016 4:10 PM [employer] Read by: Albert Vail MD Dictated Date/time: 07/12/16 16:40 Electronically Signed by: Albert Vail 07/12/16 16:42 FINAL REPORT INDICATION: Chest pain COMPARISON: Yesterday TECHNIQUE: AP chest FINDINGS: Abandoned and calcified discontinuous UI PROGRAMMER shunt tubing is redemonstrated over the right lower neck and anterior chest, coursing over the upper abdomen. Additional UI PROGRAMMER shunt tubing is seen over t he right neck, extending over the midline chest and left upper quadrant; distal tubing is not well seen. Stable cardiomediastinal silhouette. No new pulmonary or pleural based abnormalities. IMPRESSION: No significant change. Brain Brain shunt EXAM: XR SHUNT SERIES 07/12 - [place] shunt series - Medical series DX This report was dictated by a Respite Provider/Fellow. I have personally reviewed the images as Center well as the Resident's interpretation and agree with the findings. DATE: 07/12/2016 7:03 AM [employer] Read by: Siva Lanza MD Resident: Siva [...] the L3 level. IMPRESSION: 1. Right programmable UI PROGRAMMER shunt with unremarkable appearance. 2. 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 Skull 1 Skull 1 view EXAM: XR SKULL 1 VIEW 07/12 - [place] view DX DX /2015 - Medical This report was dictated by a Respite Provider/Fellow. I have personally reviewed the images as Center well as the Resident's interpretation and agree with the findings. DATE: 07/12/2016 7:03 AM [employer] Read by: Siva Lanza MD Resident: Siva [...] DRUG U Phencyc Negative Negative 07/12 SCREEN [facility]* [place] (07/12/16 12:39 AM) DRUG U Opiate Scr Negative Negative 07/12 [facility] (07/12/16 12:39 AM) DRUG U Propoxyph Negative Negative 07/12 [facility] (07/12/16 12:39 AM) DRUG U Methadone Negative Negative 07/12 [facility] (07/12/16 12:39 AM) DRUG UDS Note See Note 07/12 [facility] (07/12/16 12:39 AM) DRUG U Benzodia Negative Negative 07/12 [facility] (07/12/16 12:39 AM) DRUG U Amph Scr Negative Negative 07/12 [facility] (07/12/16 12:39 AM) DRUG U Cannab Scr Negative Negative 07/12 [facility] (07/12/16 12:39 AM) DRUG U Cocaine Negative Negative 07/12 [facility] (07/12/16 12:39 AM) DRUG U Tori Scr Negative Negative 07/12 [facility] [place] (07/12/16 12:39 AM) HEMATOLOGY Platelet 306 K/CMM 133 - 450 07/12 [facility] HEMATOLOGY RDW 13.5 % 11.5 - 07/12 [place] 14. [facility] HEMATOLOGY MPV 9.3 fL 7.4 - 10.4 07/12 [facility] HEMATOLOGY RBC 4.46 M/CMM 4.20 - 07/12 [place] 5.40 /2015 [facility] HEMATOLOGY Hgb 12.6 g/dL 12.0 - 07/12 [place] 16.0 /2015 [facility] HEMATOLOGY Hct 37.4 % 36.0 - 07/12 [place] 48.0 /2015 [facility] HEMATOLOGY MCV 83.9 fL 80.0 - 07/12 [place] 98.0 /2015 [facility] HEMATOLOGY WBC 9.4 K/CMM 3.7 - 10.4 07/12 /2015 [facility] HEMATOLOGY MCH 28.3 pg 27.0 - 07/12 [place] 31.0 /2015 [facility] HEMATOLOGY MCHC 33.8 g/dL 32.0 - 07/12 [facility] 36.0 [facility] HEMATOLOGY PTT 33.7 s 22.9 - 07/12 [place] 35.8 /2015 [facility] HEMATOLOGY INR 1.02 0.85 - 07/12 [place] 1.17 [facility] HEMATOLOGY PT 13.6 s 12.0 - 07/12 [place] 14.7 /2015 [facility] HEMATOLOGY Segs-Bands # 5.5 K/CMM 1.5 - 8.1 07/12 [facility] HEMATOLOGY Monocytes # 0.6 K/CMM 0.0 - 0.8 07/12 [facility] HEMATOLOGY Lymphocytes 3.0 K/CMM 1.0 - 5.5 07/12 [place] /2015 [facility] HEMATOLOGY Basophils # 0.1 K/CMM 0.0 - 0.2 07/12 [facility] HEMATOLOGY Eosinophils 0.1 K/CMM 0.0 - 0.5 07/12 [place] /2016 [facility] HEMATOLOGY Basophils 0.9 % 0.0 - 1.0 07/12 /2015 [facility] HEMATOLOGY Segs 58.7 % 45.0 - 07/12 [place] 75.0 [facility] HEMATOLOGY Lymphocytes 32.5 % 20.0 - 07/12 [place] 40.0 /2016 [facility] HEMATOLOGY Monocytes 6.5 % 2.0 - 12.0 07/12 [facility] HEMATOLOGY Eosinophils 1.4 % 0.0 - 4.0 07/12 [facility] URINE AND UA WBC 1 /HPF 0 - 5 07/12 [facility] URINE AND Micro? Not Indicated 07/12 [facility] *NA* [place] (07/12/16 12:39 AM) URINE AND UA <=1.0 0.1 - 1.0 07/12 [facility] Urobilinogen mg/dL [facility] URINE AND UA Protein Negative Negative 07/12 [facility] mg/dL mg/dL [facility] URINE AND UA Glucose Negative Negative 07/12 [facility] mg/dL mg/dL [facility] URINE AND UA Turbidity Clear Clear 07/12 [facility] (07/12/16 12:39 AM) [place] URINE AND UA Spec Grav 1.011 <=1.030 07/12 [facility] URINE AND UA pH 6.5 5.0 - 8.0 07/12 [facility] URINE AND UA Color Yellow Yellow 07/12 [facility] *NA* [place] (07/12/16 12:39 AM) URINE AND UA Sq Epi Moderate Few /LPF 07/12 [facility] STOOL /LPF /2015 [facility] URINE AND UA Leuk Est Negative Negative 07/12 [facility] (07/12/16 12:39 AM) [place] URINE AND UA Ketones Negative Negative 07/12 [facility] mg/dL mg/dL [facility] URINE AND UA Bili Negative Negative 07/12 [facility] *NA* [place] (07/12/16 12:39 AM) URINE AND UA Blood Negative Negative 07/12 [facility] (07/12/16 12:39 AM) [place] URINE AND UA Nitrite Negative Negative 07/12 [facility] (07/12/16 12:39 AM) [place] URINE CHEM U Preg Negative Negative 07/12 [facility] (07/12/16 12:39 AM) Center BLOOD BANK Antibody Negative 07/12 [facility] RESULTS Scrn [facility] (07/11/16 11:50 PM) [place] BLOOD BANK ABO/Rh A POS 07/12 [facility] RESULTS [facility] CHEM PANEL Glucose Lvl 93 mg/dL 70 - 99 07/12 [facility] CHEM PANEL AGAP 15.5 meq/L 10.0 - 07/12 [place] 20.0 [facility] CHEM PANEL eGFR 113 07/12 Result Comment: The eGFR is calculated using the CKD-EPI formula. In most young, healthy individuals the eGFR will be >90 mL/ min/1.73m2. The eGFR declines with age. An eGFR of 60-89 may be normal in [facility] mL/min/1. some populations, particularly the elderly, for whom the CKD-EPI formula has not been extensively validated. Use of the eGFR is not recommended in the following populations: [address] Individuals with unstable creatinine concentrations, including [...] Lvl 142 meq/L 135 - 145 07/[address] CHEM PANEL Creatinine 0.75 mg/dL 0.50 - 07/12 [facility] 1.40 [facility] CHEM PANEL BUN 6 mg/dL 7 - 22 07/[address] CHEM PANEL Calcium Lvl 8.8 mg/dL 8.5 - 10.5 07/[address] CHEM PANEL CO2 26 meq/L 24 - 32 07/[address] CHEM PANEL Potassium 3.5 meq/L 3.5 - 5.1 07/12 [facility] CHEM PANEL Chloride Lvl 104 meq/L 95 - 109 07/[address] Brain wo Brain wo EXAM: CT HEAD WITHOUT CONTRAST 07/12 - [facility] contrast contrast CT /2015 - [facility] DATE: 07/12/2016 147 AM [employer] PERSON Read by: Marcos Jo MD Dictated Date/time: 07/12/16 10:11 Electronically Signed by: Marcos Jo MD 07/12/16 10:22 FINAL REPORT INDICATION: 21 years old Female patient with history of UI PROGRAMMER shunt placement , now complaining of headache. TECHNIQUE: Multiple axial images were obtained through the head from vertex to the skull base. Axial bone algorithm reconstruction images are provided. COMPARISON: Prior outside hospital CT Scan of the head dated 07/11/2016 DISCUSSION: Again identified is a right parietal approach UI PROGRAMMER shunt catheter with distal tip lies within [...] adverse change. 2. Stable right parietal approach UI PROGRAMMER shunt catheter with adequately decompressed ventricular system. 3. 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 Chest Chest 1view EXAM: XR CHEST 1 VIEW 07/11 [facility] 1view DX DX /2015 - [facility] This report was dictated by a Respite Provider/Fellow. I have personally reviewed the images as Center well as the Resident's interpretation and agree with the findings. DATE: 07/11/2016 2230 hours Read by: Macy Campos MD Resident: Macy Campos MD Dictated Date/time: 07/11/16 22:49 Electronically Signed by: Aron Pacheco 07/12/16 08:18 FINAL REPORT INDICATION: Mass COMPARISON: Chest radiograph 07/11/2016 TECHNIQUE: AP chest FINDINGS: Lines and tubes: Abandoned and calcified discontinuous UI PROGRAMMER shunt tubing is redemonstrated over the right lower neck and anterior chest, coursing over the upper abdomen. Additional UI PROGRAMMER shunt tubing is seen over the right [...] No acute cardiopulmonary abnormality. 2. Partially visualized UI PROGRAMMER shunt tubing as discussed above. Vital Signs Vital Sign Value Date Comments Source Respitory Rate 16 07/16/2016 [facility] Systolic (mm Hg) 134 07/16/2016 [facility] Diastolic (mm Hg) 63 07/16/2016 [facility] Temperature Oral (F) 98.2 F 07/16/2016 [facility] Temperature Oral (F) 98.6 F 07/16/2016 [facility] Respitory Rate 14 07/16/2016 [facility] Diastolic (mm Hg) 81 07/16/2016 [facility] Systolic (mm Hg) 131 07/16/2016 [facility] Weight 84.545 07/16/2016 [facility] Respitory Rate 20 07/16/2016 [facility] Heart Rate 110 07/16/2016 [facility] Temperature Oral (F) 98.8 F 07/16/2016 [facility] BMI Calculated 35.22 07/16/2016 [facility] Height 154.94 cm 07/16/2016 [facility] Systolic (mm Hg) 126 07/16/2016 [facility] Diastolic (mm Hg) 87 07/16/2016 [facility] Respitory Rate 12 07/14/2016 [facility] Temperature Oral (F) 97.9 F 07/14/2016 [facility] Systolic (mm Hg) 111 07/14/2016 [facility] Diastolic (mm Hg) 72 07/14/2016 [facility] Respitory Rate 16 07/14/2016 [facility] Systolic (mm Hg) 117 07/14/2016 [facility] Diastolic (mm Hg) 79 07/14/2016 [facility] Respitory Rate 13 07/14/2016 [facility] Systolic (mm Hg) 110 07/14/2016 [facility] Diastolic (mm Hg) 61 07/14/2016 [facility] Heart Rate 84 07/14/2016 [facility] Heart Rate 75 07/14/2016 [facility] Heart Rate 81 07/14/2016 [facility] Temperature Oral (F) 98.0 F 07/13/2016 [facility] Temperature Oral (F) 98.1 F 07/13/2016 [facility] Weight 84.545 07/12/2016 [facility] Weight 84.545 07/12/2016 [facility] Height 152.4 cm 07/12/2016 [facility] BMI Calculated 36.4 07/12/2016 [facility] Encounters Location Location Encounter Encounter Reason Attending ADM DC Status Source Details Type Number For Provider Date Date [facility] [id number] [place] 07/12 07/14 Patsy Decker /2015 [facility] Emergency [id number] [place] 07/16 07/16 [facility] Kenyon Chung /2015 [facility] Procedures Procedure Code Date Perfomer Comments Source Creation of UI PROGRAMMER [id number] [facility] shunt Creation of UI PROGRAMMER [id number] [facility]
--- NOTE | 2018-11-30 14:40 | RAD REPORT ---
EXAM DESCRIPTION: RAD - Foot Right 3 View - 11/30/2018 2:32 pm CLINICAL HISTORY: Right foot pain FINDINGS: No fracture or dislocation is seen. No significant bone or joint abnormality seen
--- NOTE | 2018-11-30 14:52 | EDPHYS ---
Physician Documentation [facility] Name: Shanna Estrella Age: 23 yrs Sex: Female : 1995 Arrival Date: 11/30/2018 Time: 12:28 Bed 24 Private MD: ED Physician Jeancarlos Wilkerson HPI: 11/30 14:45 This 23 yrs old Female presents to ER via Ambulatory with complaints of Foot gs Pain. 14:45 The patient presents with pain. The complaints affect the right foot. Onset: The gs symptoms/episode began/occurred 1 week(s) ago. Associated signs and symptoms: Pertinent negatives: numbness. Severity of symptoms: At their worst the symptoms were moderate, in the emergency department the symptoms are unchanged. The patient has experienced similar episodes in the past, multiple times. 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 - Social history:: Smoking status: Patient/guardian denies using tobacco, Patient/guardian denies using alcohol. - Ebola Screening: : Patient negative for fever greater than or equal to 101.5 degrees Fahrenheit, and additional compatible Ebola Virus Disease symptoms Patient denies exposure to infectious person Patient denies travel to an Ebola-affected area in the 21 days before illness onset. ROS: 14:45 All other systems are negative. gs Exam: 14:45 Neck: Trachea midline, no thyromegaly or masses palpated, and no cervical gs lymphadenopathy. Supple, full range of motion without nuchal rigidity, or vertebral point tenderness. No Meningismus. Cardiovascular: Regular rate and rhythm with a normal S1 and S2. No gallops, murmurs, or rubs. Normal PMI, no JVD. No pulse deficits. Respiratory: Lungs have equal breath sounds bilaterally, clear to auscultation and percussion. No rales, rhonchi or wheezes noted. No increased work of breathing, no retractions or nasal flaring. Abdomen/GI: Soft, non-tender, with normal bowel sounds. No distension or tympany. No guarding or rebound. No evidence of tenderness throughout. Back: No spinal tenderness. No costovertebral tenderness. Full range of motion. Skin: Warm, dry with normal turgor. Normal color with no rashes, no lesions, and no evidence of cellulitis. Neuro: Awake and alert, GCS 15, oriented to person, place, time, and situation. Cranial nerves II-XII grossly intact. Motor strength 5/5 in all extremities. Sensory grossly intact. Cerebellar exam normal. Normal gait. 14:45 Constitutional: The patient appears alert, awake. 14:45 Musculoskeletal/extremity: Extremities: noted in the dorsum of right foot: swelling, tenderness, ROM: limited active range of motion due to pain, limited passive range of motion due to pain, Pulses: are normal with no appreciated deficits, Sensation intact. Vital Signs: 12:51 BP 122 / 94; Pulse 120; Resp 18; Temp 98.9(O); Pulse Ox 100% on R/A; Weight 81.65 kg; Height 5 ft. 4 in. (162.56 cm); Pain 8/10; 14:25 BP 120 / 89; Pulse 112; Resp 18; Pulse Ox 100% on R/A; hj 15:07 BP 118 / 85; Pulse 100; Resp 18; Pulse Ox 100% on R/A; hj 12:51 Body Mass Index 30.90 (81.65 kg, 162.56 cm) MDM: 13:44 Patient medically screened. 14:45 Differential diagnosis: fracture, sprain, arthritis. Data reviewed: vital signs, nurses notes, radiologic studies. Counseling: I had a detailed discussion with the patient and/or guardian regarding: the historical points, exam findings, and any diagnostic results supporting the discharge/admit diagnosis, the need for outpatient follow up, a orthopedic surgeon. Response to treatment: the patient's symptoms have mildly improved after treatment, and as a result, I will discharge patient. 11/30 13:45 Order name: Foot Right 3 View XRAY; Complete Time: 14:43 11/30 14:51 Order name: [place] Wrap; Complete Time: 14:55 11/30 15:06 Order name: Walking boot; Complete Time: 15:06 hj Administered Medications: No medications were administered Disposition: 11/30/18 14:51 Discharged to Home. Impression: Other sprain of right foot. - Condition is Stable. - Discharge Instructions: Foot Sprain. - Medication Reconciliation Form, Thank You Letter, Antibiotic Education, Prescription Opioid Use form. - Follow up: Canelo Diop MD; When: 2 - 3 days; Reason: Re-evaluation by your physician. Signatures: Dispatcher [employer] Anatoliy Reno RN RN hj Starr, Gregory, MD MD gs Corrections: (The following items were deleted from the chart) 15:08 14:51 11/30/2018 14:51 Discharged to Home. Impression: Other sprain of right foot. hj Condition is Stable. Forms are Medication Reconciliation Form, Thank You Letter, Antibiotic Education, Prescription Opioid Use. Follow up: Canelo Diop; When: 2 - 3 days; Reason: Re-evaluation by your physician. gs
--- NOTE | 2018-11-30 14:52 | ER ---
Nurse's Notes [facility] Name: Shanna Estrella Age: 23 yrs Sex: Female : 1995 Arrival Date: 11/30/2018 Time: 12:28 Bed 24 Private MD: Diagnosis: Other sprain of right foot Presentation: 11/30 12:49 Presenting complaint: Patient states: i broke my R foot about a year ago, today its hj giving me trouble now, lately it think i put a lot of pressure on my R foot lately and now its swollen and the pain, 8/10;. Transition of care: patient was not received from another setting of care. Onset of symptoms was November 30, 2018. Risk Assessment: Do you want to hurt yourself or someone else? Patient reports no desire to harm self or others. Initial Sepsis Screen: Does the patient meet any 2 criteria? No. Patient's initial sepsis screen is negative. Does the patient have a suspected source of infection? No. Patient's initial sepsis screen is negative. Care prior to arrival: None. 12:49 Method Of Arrival: Ambulatory 12:49 Acuity: ELI 4 hj Triage Assessment: 13:20 General: Appears in no apparent distress. uncomfortable, Behavior is calm, cooperative, hj appropriate for age. Pain: Complains of pain in right foot. 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 - Social history:: Smoking status: Patient/guardian denies using tobacco, Patient/guardian denies using alcohol. - Ebola Screening: : Patient negative for fever greater than or equal to 101.5 degrees Fahrenheit, and additional compatible Ebola Virus Disease symptoms Patient denies exposure to infectious person Patient denies travel to an Ebola-affected area in the 21 days before illness onset. Screenin:20 Abuse screen: Denies threats or abuse. Denies injuries from another. Nutritional hj screening: No deficits noted. Tuberculosis screening: No symptoms or risk factors identified. Fall Risk None identified. Assessment: 13:40 Reassessment: awaiting for provider to check pt;. hj 14:25 Reassessment: Patient and/or family updated on plan of care and expected duration. Pain hj level reassessed. Patient is alert, oriented x 3, equal unlabored respirations, skin warm/dry/pink. awaiting results and POC;. 15:06 Reassessment: Patient and/or family updated on plan of care and expected duration. Pain hj level reassessed. Patient is alert, oriented x 3, equal unlabored respirations, skin warm/dry/pink. Patient states feeling better. Patient states symptoms have improved. Vital Signs: 12:51 BP 122 / 94; Pulse 120; Resp 18; Temp 98.9(O); Pulse Ox 100% on R/A; Weight 81.65 kg; hj Height 5 ft. 4 in. (162.56 cm); Pain 8/10; 14:25 BP 120 / 89; Pulse 112; Resp 18; Pulse Ox 100% on R/A; hj 15:07 BP 118 / 85; Pulse 100; Resp 18; Pulse Ox 100% on R/A; hj 12:51 Body Mass Index 30.90 (81.65 kg, 162.56 cm) hj ED Course: 12:28 Patient arrived in ED. as 12:50 Triage completed. hj 12:53 Arm band placed on left wrist. hj 13:12 Anatoliy Coleman RN is Primary Nurse. hj 13:14 Jeancarlos Wilkerson MD is Attending Physician. gs 13:21 Patient has correct armband on for positive identification. Bed in low position. Call hj light in reach. Side rails up X 1. 14:18 Foot Right 3 View XRAY In Process Unspecified. EDMS 14:22 X-ray completed. Portable x-ray completed in exam room. Patient tolerated procedure jb2 well. 14:49 Canelo Diop MD is Referral Physician. gs 15:07 No provider procedures requiring assistance completed. Patient did not have IV access hj during this emergency room visit. Administered Medications: No medications were administered Outcome: 14:51 Discharge ordered by . gs 15:07 Discharged to home ambulatory, with walker boots; hj 15:07 Condition: stable 15:07 Instructed on discharge instructions, follow up and referral plans. Demonstrated understanding of instructions, follow-up care. 15:08 Patient left the ED. yue Signatures: Dispatcher [employer] Thomas Kingston Amelia as Joaquin, Henry, RN Jeancarlos Pearson MD MD
== END 2018-11-30 15:08 | disposition home or self-care (01) ==
LOC: ER 12:26
DX: S93.601A Unspecified sprain of right foot, initial encounter (principal); F32.9 Major depressive disorder, single episode, unspecified; G40.909 Epilepsy, unspecified, not intractable, without status epilepticus; Z88.0 Allergy status to penicillin; Z88.8 Allergy status to other drugs, medicaments and biological substances
CPT/HCPCS: 99283

== ENCOUNTER 2018-12-28 09:56 | Emergency (ER) | payer SELFPAY ==
--- OUTSIDE RECORDS SUMMARY | 2018-12-28 10:01 | XMS REPORT | Continuity of Care Document ---
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, [facility], type II [facility] Hydrocephalus Resolved Problem 07/19/2016 [facility] Depression Resolved Problem 07/19/2016 [facility] PTSD (<span Resolved Problem 07/19/2016 ID="[id number] [facility],M ">Confirmed</spa H [place] n>) [facility] PTSD (<span Resolved Problem 07/19/2016 ID="[id number] [facility] ">Confirmed</spa H [place] n>) [facility] HEADACHE Active [facility] Medications Medication Details Route Status Patient Ordering Order Source Instructions Provider Date Ketorolac 60 mg, Route: No Longer IM, Drug form: Active 2015 [facility] INJ, ONCE, Dosing Weight 84.545, kg, Priority: STAT, Start date: 07/15/16 23:21:00 [facility], Stop date: 07/15/16 23:21:00 [facility] Valium 5 mg, Route: No Longer IM, Drug form: Active 2015 [facility] INJ, ONCE, Dosing Weight 84.545, kg, Priority: STAT, Start date: 07/15/16 23:21:00 [employer], Stop date: 07/15/16 23:21:00 [facility] Ativan 1 mg, 0.5 mL, No Longer [facility] Route: IVP, Active [facility] Drug form: INJ, Center ONCE, Dosing Weight 84.545, kg, PRN Anxiety, Start date: 07/13/16 23:15:00 CSTNotes: (Same as: Ativan) nystatin 1 appl, Route: No Longer [facility] topical 100,000 TOP, TID, Drug Active 2015 Medical units/g cream form: CRM, Center Start date: 07/13/16 17:00:00 [facility] [employer], Duration: 30 day, Stop date: 08/12/16 13:00:00 CSTNotes: (Same as:Mycostatin, Nilstat) For external use only. Nystatin [id number] 1 appl, Route: Inactive [facility] UNT/ML / TOP, TID, Drug 2015 Medical Triamcinolone form: [facility], [place] Acetonide 1 Start date: MG/ML Topical 07/13/16 Cream 9:00:00 [employer] [employer], Duration: 30 day, Stop date: 08/11/16 17:00:00 [employer] [employer] Sodium Chloride 250 mL, 250 Inactive [facility] 0.154 MEQ/ML ml/hr, Infuse 2015 Medical Injectable Over: 1 hr, [place] Solution Route: IV, 250, Drug form: INJ, ONCE, Priority: STAT, Dosing Weight 84.545 kg, Start date: 07/12/16 16:18:00 [employer] HE[employer], Duration: 1 doses or times, Stop date: 07/12/16 16:18:00 [employer] [employer] Promethazine 12.5 mg, 0.5 No Longer [facility] mL, Route: Active 2015 Medical IVPB, Drug Center form: INJ, Q4H, Dosing Weight 84.545, kg, PRN as needed for nausea/vomiting , Start date: 07/12/16 16:17:00 [employer] HE[employer], Duration: 30 day, Stop date: 08/11/16 16:16:00 CSTNotes: Do not give IV push. (Same as: Phenergan) Docusate 100 mg, 1 cap, No Longer [facility] Route: PO, Drug Active 2015 Medical form: CAP, Center Q12H, Dosing Weight 84.545, kg, Start date: 07/12/16 9:00:00 LEADITE HEATER, Duration: 30 day, Stop date: 08/10/16 21:00:00 CSTNotes: (Same as: Colace) (Do Not Crush) sennosides, [facility] 8.6 mg, 1 tab, No Longer [place] Route: PO, Drug Active 2015 Medical Form: TAB, Center Dosing Weight 84.545, kg, Q12H, Start date: 07/12/16 9:00:00 LEADITE HEATER, Duration: 30 day, Stop date: 08/10/16 21:00:00 CSTNotes: (Same as: Senokot) Saline Flush 10 ml, Route: No Longer [place] 0.9% IVP, Drug Form: Active 2015 Medical INJ, Dosing Center Weight 84.545, kg, Q12H, Start date: 07/12/16 9:00:00 LEADITE HEATER, Duration: 30 day, Stop date: 08/10/16 21:00:00 [...] Pain Score 1-3, Start date: 07/12/16 7:14:00 LEADITE HEATER, Duration: 30 day, Stop date: 08/11/16 7:13:00 [...] Abnormal Lab Result, Start date: 07/11/16 22:18:00 LEADITE HEATER, Duration: 30 day, Stop date: 08/10/16 22:17:00 [...] 50% 25 gm, 50 mL, No Longer [facility] Syringe Route: IVP, Active 2015 Medical Drug Form: INJ, Center Dosing Weight 84.545, kg, PRN, PRN Abnormal Lab Result, Start date: 07/11/16 22:18:00 LEADITE HEATER, Duration: 30 day, Stop date: 08/10/16 22:17:00 LEADITE HEATER Bisacodyl 10 mg, 1 supp, No Longer [facility] Route: MA, Drug Active 2015 Medical form: SUPP, Center Daily, Dosing Weight 84.545, kg, PRN Constipation, Start date: 07/11/16 22:18:00 LEADITE HEATER, Duration: 30 day, Stop date: 08/10/16 22:17:00 CSTNotes: (Same As: Dulcolax, Bisco-Lax) Saline Flush 10 ml, Route: No Longer [facility] 0.9% IVP, Drug Form: Active 2015 Medical INJ, Dosing Center Weight 84.545, kg, PRN, PRN Line Flush, Start date: 07/11/16 22:18:00 LEADITE HEATER, Duration: 30 day, Stop date: 08/10/16 22:17:00 CSTNotes: (Same as: BD Posiflush) Ondansetron 4 mg, 2 mL, No Longer [facility] Route: IVP, Active 2015 Medical Drug form: INJ, Center Q8H, Dosing Weight 84.545, kg, PRN Nausea & Vomiting, Start date: 07/11/16 22:18:00 LEADITE HEATER, Duration: 30 day, Stop date: 08/10/16 22:17:00 CSTNotes: (Same as: Leeanne) MEDICATION WASTE Product Size: 4 mg Product Wasted: _0__ mg Acetaminophen 1 tab, Route: No Longer [place] 325 MG / PO, Drug Form: Active 2016 Medical Hydrocodone TAB, Dosing Center Bitartrate 10 Weight 84.545, MG Oral Tablet kg, Q4H, PRN Pain Score 4-6, Start date: 07/11/16 22:18:00 LEADITE HEATER, Duration: 30 day, Stop date: 08/10/16 22:17:00 CSTNotes: Do not exceed 4gm/day of acetaminophen. (Same as: [place] 325/10) Acetaminophen 1 tab, Route: No Longer [place] 325 MG / PO, Drug Form: Active 2016 Medical Hydrocodone TAB, Dosing Center Bitartrate 5 MG Weight 84.545, Oral Tablet kg, Q4H, PRN Pain Score 1-3, Start date: 07/11/16 22:18:00 LEADITE HEATER, Duration: 30 day, Stop date: 08/10/16 22:17:00 CSTNotes: (Same as: [place] 325/5) Do not exceed 4gm/day of acetaminophen. Sodium Chloride 1,000 mL, Rate: No Longer [place] 0.154 MEQ/ML 75 ml/hr, Active 2015 Medical Injectable Infuse over: Center Solution 13.3 hr, Route: IV, Dosing Weight 84.545 kg, Total Volume: 1,000, Start date: 07/11/16 22:18:00 LEADITE HEATER, Duration: 30 day, Stop date: 08/10/16 22:17:00 [employer] HE[employer] Reglan 10 mg, 2 mL, Inactive [place] Route: IVP, 2015 Medical Drug form: INJ, Center ONCE, Dosing Weight 84.545, kg, Priority: STAT, Start date: 07/11/16 20:59:00 LEADITE HEATER, Stop date: 07/11/16 20:59:00 CSTNotes: (Same as: Reglan) Sodium Chloride 1,000 mL, 1,000 Inactive [place] 0.154 MEQ/ML ml/hr, Infuse 2016 Medical Injectable Over: 1 hr, Center Solution Route: IV, 1,000, Drug form: INJ, ONCE, Priority: STAT, Dosing Weight 84.545 kg, Start date: 07/11/16 20:59:00 LEADITE HEATER, Duration: 1 doses or times, Stop date: 07/11/16 20:59:00 [employer] Acetaminophen 1,000 mg, 2 Inactive [place] tab, Route: PO, 2016 Medical Drug form: TAB, Center ONCE, Dosing Weight 84.545, kg, Priority: STAT, Start date: 07/11/16 20:59:00 LEADITE HEATER, Stop date: 07/11/16 20:59:00 CSTNotes: Max acetaminophen 4000 mg/day (4 gm/day). (Same as: Tylenol Extra Strength) Allergies, Adverse Reactions, Alerts Substance Category Reaction Severity Reaction Status Date Comments Source type Reported amoxicillin Assertion Drug Active MH allergy [facility] LaMICtal Assertion Drug Active MH allergy [facility] Medical Tape Assertion Drug Active MH allergy [place] penicillins Assertion Drug Active MH allergy [facility] Immunizations Immunization Date Given Site Status Last Updated Comments Source Results Order Name Results Value Reference Date Interpretation Comments Source Range Brain Brain shunt Clinical Indication:21 years Female with Pain and swelling 07/15 - shunt series DX /2015 - [facility] series DX Comparison: Shunt study 07/12/2016 Read by: Scot Saenz MD Dictated Date/time: 07/15/16 23:38 FINDINGS: Electronically Signed by: Scot Saenz MD 07/15/16 23:41 FINAL REPORT Radiographs of the right PICKLE MAKER shunt obtained from the skull to the abdomen. Unchanged appearance of the PICKLE MAKER shunt, which goes from the right lateral ventricle along the right neck, traverses the right upper chest to the left lower chest, and terminates in the left upper quadrant. No discontinuity of the PICKLE MAKER shunt. 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 IMPRESSION: Unchanged appearance of right PICKLE MAKER shunt. No discontinuity of the shunt catheter or other significant radiographic abnormality. Brain wo Brain wo Exam: MRI brain without and with contrast. 07/13 - [facility] contrast contrast MRI /2015 - Medical [...] brain without and with contrast. 07/13 - [facility] contrast contrast MRI /2015 - Medical [...] CSF 34 mg/dL 15 - 45 07/13 [facility] FLUIDS [facility] BODY Color CSF Colorless Colorless 07/13 [place] FLUIDS [facility] (07/13/16 7:35 AM) Center BODY Clarity CSF Clear Clear 07/13 [facility] FLUIDS [facility] (07/13/16 7:35 AM) Center BODY Tube Num CSF xxxxxxx 07/13 [place] FLUIDS [facility] (07/13/16 7:35 AM) Center BODY RBC CSF 0 /mm3 0 - 03 07/13 [facility] FLUIDS [facility] BODY Supernat CSF Colorless Colorless 07/13 [place] FLUIDS [facility] (07/13/16 7:35 AM) Center BODY WBC CSF 1 /mm3 0 - 53 07/13 [facility] FLUIDS [facility] BODY Glucose CSF 56 mg/dL 45 - 80 07/13 [facility] FLUIDS /2015 [facility] IMMUNOLOGY PE Interp CSF 07/13 [facility] protein [facility] electropho [place] resis did not reveal evidence of an oligoclona l process in the ALUMINUM CAN COLLECTOR. The CSF IgG index is within the reference range indicating that there is no elevation in intracereb ral IgG synthesis. There is also no evidence of increased permeabili ty of the blood brain barrier based on the CSF/serum albumin ratio.The electronic medical record has been reviewed for relevant history.I have personally reviewed the test results and concur with the resident's interpreta tion.CPT: 25027-FE IMMUNOLOGY Description The gel 07/13 [facility] CSF demonstrat [facility] appropriat e resolution of the main protein bands. The gamma region shows continuous distributi on of proteins both in the CSF and in the serum. No oligoclona l bands are detected. IMMUNOLOGY IgG (CPE) 1010 mg/dL 694 - 1618 07/13 [facility] IMMUNOLOGY Alb (CPE) 4100.0 3400.0 - 07/13 [facility] mg/dL 5000.0 [facility] IMMUNOLOGY IgG Lvl CSF 1.7 mg/dL 2.0 - 4.0 07/13 [facility] IMMUNOLOGY Alb CSF 14.7 mg/dL 14.0 - 07/13 [facility] (CPE) 25.0 [facility] IMMUNOLOGY IgG Index 0.5 mg/dL 0.3 - 0.7 07/13 [facility] CHEM PANEL eGFR 128 07/13 Result Comment: The eGFR is calculated using the CKD-EPI formula. In most young, healthy individuals the eGFR will be >90 mL/ min/1.73m2. The eGFR declines with age. An eGFR of 60-89 may be normal in [facility] mL/min/1.7 some populations, particularly the elderly, for whom the CKD-EPI formula has not been extensively validated. Use of the eGFR is not recommended in the following populations: [address] Individuals with unstable creatinine concentrations, including [...] Lvl 8.8 mg/dL 8.5 - 10.5 07/13 [facility] CHEM PANEL CO2 23 meq/L 24 - 32 07/13 [facility] CHEM PANEL Chloride Lvl 108 meq/L 95 - 109 07/13 [facility] CHEM PANEL Creatinine 0.61 mg/dL 0.50 - 07/13 [facility] Lvl 1.40 [facility] CHEM PANEL Sodium Lvl 142 meq/L 135 - 145 07/13 [facility] CHEM PANEL BUN 7 mg/dL 7 - 22 07/13 [facility] CHEM PANEL Potassium 3.9 meq/L 3.5 - 5.1 07/13 [facility] Lvl /2015 [facility] CHEM PANEL Glucose Lvl 88 mg/dL 70 - 99 07/13 [facility] CHEM PANEL AGAP 14.9 meq/L 10.0 - 07/13 20.0 [facility] HEMATOLOGY Lymphocytes 37.9 % 20.0 - 07/13 40.0 [facility] HEMATOLOGY Segs 52.1 % 45.0 - 07/13 75.0 [facility] HEMATOLOGY Monocytes 7.3 % 2.0 - 12.0 07/13 [facility] HEMATOLOGY Basophils 0.8 % 0.0 - 1.0 07/13 [facility] HEMATOLOGY Eosinophils 1.9 % 0.0 - 4.0 07/13 [facility] HEMATOLOGY Segs-Bands # 3.8 K/CMM 1.5 - 8.1 07/13 [facility] HEMATOLOGY Eosinophils 0.1 K/CMM 0.0 - 0.5 07/13 [facility] HEMATOLOGY Monocytes # 0.5 K/CMM 0.0 - 0.8 07/13 [facility] HEMATOLOGY Lymphocytes 2.7 K/CMM 1.0 - 5.5 07/13 [facility] HEMATOLOGY Basophils # 0.1 K/CMM 0.0 - 0.2 07/13 [facility] HEMATOLOGY RBC 4.53 M/CMM 4.20 - 07/13 5.40 [facility] HEMATOLOGY WBC 7.2 K/CMM 3.7 - 10.4 07/13 [facility] HEMATOLOGY Hct 38.5 % 36.0 - 07/13 48.0 [facility] HEMATOLOGY Hgb 13.0 g/dL 12.0 - 07/13 16.0 [facility] HEMATOLOGY MCHC 33.9 g/dL 32.0 - 07/13 36.0 [facility] HEMATOLOGY MCH 28.8 pg 27.0 - 07/13 31.0 [facility] HEMATOLOGY RDW 14.0 % 11.5 - 07/13 14. [facility] HEMATOLOGY MPV 9.2 fL 7.4 - 10.4 07/13 [facility] HEMATOLOGY Platelet 283 K/CMM 133 - 450 07/13 [facility] HEMATOLOGY MCV 84.9 fL 80.0 - 07/13 [place] 98.0 /2015 [facility] HEMATOLOGY INR 0.96 0.85 - 07/13 [place] 1.17 /2015 [facility] HEMATOLOGY PTT 31.9 s 22.9 - 07/13 [place] 35.8 /2015 [facility] HEMATOLOGY PT 13.0 s 12.0 - 07/13 [facility] 14.7 [facility] Brain wo Brain wo EXAM: CT HEAD WITHOUT CONTRAST 07/13 [facility] contrast contrast CT /2015 - [facility] CT Center DATE: 07/13/2016 Read by: Marcos Jo MD Dictated Date/time: 07/13/16 06:58 Electronically Signed by: Marcos Jo MD 07/13/16 07:01 FINAL REPORT INDICATION: 21 years old Female patient with history of PICKLE MAKER shunt placement , now complaining of headache. TECHNIQUE: Multiple axial images were obtained through the head from vertex to the skull base. Axial bone algorithm reconstruction images are provided. COMPARISON: Prior CT Scan of the head dated 07/12/2016 147 AM LEADITE HEATER DISCUSSION: Again identified is a right parietal approach PICKLE MAKER shunt catheter with distal tip lies within [...] adverse change. 2. Stable right parietal approach PICKLE MAKER shunt catheter with adequately decompressed ventricular system. 3. 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 CARDIAC Troponin-T null 0.000 - 07/12 [facility] ENZYMES 0.100 [facility] CARDIAC Total CK 33 unit/L 12 - 191 07/12 [facility] ENZYMES /2015 [facility] MYOGLOBIN Myoglobin 35 ng/mL 25 - 72 07/12 [place] /[address] [place] [address] Chest Chest 1view EXAM: XR CHEST 1 VIEW 07/12 - [facility] 1view DX DX /2015 [facility] DATE: 07/12/2016 4:10 PM LEADITE HEATER Read by: Albert Vail MD Dictated Date/time: 07/12/16 16:40 Electronically Signed by: Albert Vail 07/12/16 16:42 FINAL REPORT INDICATION: Chest pain COMPARISON: Yesterday TECHNIQUE: AP chest FINDINGS: Abandoned and calcified discontinuous PICKLE MAKER shunt tubing is redemonstrated over the right lower neck and anterior chest, coursing over the upper abdomen. Additional PICKLE MAKER shunt tubing is seen over t he right neck, extending over the midline chest and left upper quadrant; distal tubing is not well seen. Stable cardiomediastinal silhouette. No new pulmonary or pleural based abnormalities. IMPRESSION: No significant change. Brain Brain shunt EXAM: XR SHUNT SERIES 07/12 - [place] shunt series - Medical series DX This report was dictated by a Optical Design Engineer/Fellow. I have personally reviewed the images as Center well as the Resident's interpretation and agree with the findings. DATE: 07/12/2016 7:03 AM LEADITE HEATER Read by: Siva Lanza MD Resident: Siva [...] the L3 level. IMPRESSION: 1. Right programmable PICKLE MAKER shunt with unremarkable appearance. 2. 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 Skull 1 Skull 1 view EXAM: XR SKULL 1 VIEW 07/12 - [place] view DX DX /2015 - Medical This report was dictated by a Optical Design Engineer/Fellow. I have personally reviewed the images as Center well as the Resident's interpretation and agree with the findings. DATE: 07/12/2016 7:03 AM LEADITE HEATER Read by: Siva Lanza MD Resident: Siva [...] DRUG U Phencyc Negative Negative 07/12 [facility]CRE[facility]* [place] (07/12/16 12:39 AM) DRUG U Opiate Scr Negative Negative 07/12 [facility] (07/12/16 12:39 AM) DRUG U Propoxyph Negative Negative 07/12 [facility] (07/12/16 12:39 AM) DRUG U Methadone Negative Negative 07/12 [facility] (07/12/16 12:39 AM) DRUG UDS Note See Note 07/12 [facility] (07/12/16 12:39 AM) DRUG U Benzodia Negative Negative 07/12 [facility] (07/12/16 12:39 AM) DRUG U Amph Scr Negative Negative 07/12 [facility] (07/12/16 12:39 AM) DRUG U Cannab Scr Negative Negative 07/12 [facility] (07/12/16 12:39 AM) DRUG U Cocaine Negative Negative 07/12 [facility] (07/12/16 12:39 AM) DRUG U Tori Scr Negative Negative 07/12 [facility] [place] (07/12/16 12:39 AM) HEMATOLOGY Platelet 306 K/CMM 133 - 450 07/12 [facility] HEMATOLOGY RDW 13.5 % 11.5 - 07/12 [place] 14. [facility] HEMATOLOGY MPV 9.3 fL 7.4 - 10.4 07/12 [facility] HEMATOLOGY RBC 4.46 M/CMM 4.20 - 07/12 [place] 5.40 /2015 [facility] HEMATOLOGY Hgb 12.6 g/dL 12.0 - 07/12 [place] 16.0 /2015 [facility] HEMATOLOGY Hct 37.4 % 36.0 - 07/12 [place] 48.0 /2015 [facility] HEMATOLOGY MCV 83.9 fL 80.0 - 07/12 [place] 98.0 /2015 [facility] HEMATOLOGY WBC 9.4 K/CMM 3.7 - 10.4 07/12 /2015 [facility] HEMATOLOGY MCH 28.3 pg 27.0 - 07/12 [place] 31.0 /2015 [facility] HEMATOLOGY MCHC 33.8 g/dL 32.0 - 07/12 [facility] 36.0 [facility] HEMATOLOGY PTT 33.7 s 22.9 - 07/12 [place] 35.8 /2015 [facility] HEMATOLOGY INR 1.02 0.85 - 07/12 [place] 1.17 [facility] HEMATOLOGY PT 13.6 s 12.0 - 07/12 [place] 14.7 /2015 [facility] HEMATOLOGY Segs-Bands # 5.5 K/CMM 1.5 - 8.1 07/12 [facility] HEMATOLOGY Monocytes # 0.6 K/CMM 0.0 - 0.8 07/12 [facility] HEMATOLOGY Lymphocytes 3.0 K/CMM 1.0 - 5.5 07/12 [place] /2015 [facility] HEMATOLOGY Basophils # 0.1 K/CMM 0.0 - 0.2 07/12 [facility] HEMATOLOGY Eosinophils 0.1 K/CMM 0.0 - 0.5 07/12 [place] /2016 [facility] HEMATOLOGY Basophils 0.9 % 0.0 - 1.0 07/12 /2015 [facility] HEMATOLOGY Segs 58.7 % 45.0 - 07/12 [place] 75.0 [facility] HEMATOLOGY Lymphocytes 32.5 % 20.0 - 07/12 [place] 40.0 /2016 [facility] HEMATOLOGY Monocytes 6.5 % 2.0 - 12.0 07/12 [facility] HEMATOLOGY Eosinophils 1.4 % 0.0 - 4.0 07/12 [facility] URINE AND UA WBC 1 /HPF 0 - 5 07/12 [facility] URINE AND Micro? Not Indicated 07/12 [facility] *NA* [place] (07/12/16 12:39 AM) URINE AND UA <=1.0 0.1 - 1.0 07/12 [facility] Urobilinogen mg/dL [facility] URINE AND UA Protein Negative Negative 07/12 [facility] mg/dL mg/dL [facility] URINE AND UA Glucose Negative Negative 07/12 [facility] mg/dL mg/dL [facility] URINE AND UA Turbidity Clear Clear 07/12 [facility] (07/12/16 12:39 AM) [place] URINE AND UA Spec Grav 1.011 <=1.030 07/12 [facility] URINE AND UA pH 6.5 5.0 - 8.0 07/12 [facility] URINE AND UA Color Yellow Yellow 07/12 [facility] *NA* [place] (07/12/16 12:39 AM) URINE AND UA Sq Epi Moderate Few /LPF 07/12 [facility] STOOL /LPF /2015 [facility] URINE AND UA Leuk Est Negative Negative 07/12 [facility] (07/12/16 12:39 AM) [place] URINE AND UA Ketones Negative Negative 07/12 [facility] mg/dL mg/dL [facility] URINE AND UA Bili Negative Negative 07/12 [facility] *NA* [place] (07/12/16 12:39 AM) URINE AND UA Blood Negative Negative 07/12 [facility] (07/12/16 12:39 AM) [place] URINE AND UA Nitrite Negative Negative 07/12 [facility] (07/12/16 12:39 AM) [place] URINE CHEM U Preg Negative Negative 07/12 [facility] (07/12/16 12:39 AM) Center BLOOD BANK Antibody Negative 07/12 [facility] RESULTS Scrn [facility] (07/11/16 11:50 PM) [place] BLOOD BANK ABO/Rh A POS 07/12 [facility] RESULTS [facility] CHEM PANEL Glucose Lvl 93 mg/dL 70 - 99 07/12 [facility] CHEM PANEL AGAP 15.5 meq/L 10.0 - 07/12 [place] 20.0 [facility] CHEM PANEL eGFR 113 07/12 Result Comment: The eGFR is calculated using the CKD-EPI formula. In most young, healthy individuals the eGFR will be >90 mL/ min/1.73m2. The eGFR declines with age. An eGFR of 60-89 may be normal in [facility] mL/min/1. some populations, particularly the elderly, for whom the CKD-EPI formula has not been extensively validated. Use of the eGFR is not recommended in the following populations: [address] Individuals with unstable creatinine concentrations, including [...] Lvl 142 meq/L 135 - 145 07/[address] CHEM PANEL Creatinine 0.75 mg/dL 0.50 - 07/12 [facility] CHEM PANEL BUN 6 mg/dL 7 - 22 07/[address] CHEM PANEL Calcium Lvl 8.8 mg/dL 8.5 - 10.5 07/[address] CHEM PANEL CO2 26 meq/L 24 - 32 07/[address] CHEM PANEL Potassium 3.5 meq/L 3.5 - 5.1 07/12 [facility] CHEM PANEL Chloride Lvl 104 meq/L 95 - 109 07/[address] Brain wo Brain wo EXAM: CT HEAD WITHOUT CONTRAST 07/12 - [facility] contrast contrast CT /2015 - [facility] DATE: 07/12/2016 147 AM LEADITE HEATER Read by: Marcos Jo MD Dictated Date/time: 07/12/16 10:11 Electronically Signed by: Marcos Jo MD 07/12/16 10:22 FINAL REPORT INDICATION: 21 years old Female patient with history of PICKLE MAKER shunt placement , now complaining of headache. TECHNIQUE: Multiple axial images were obtained through the head from vertex to the skull base. Axial bone algorithm reconstruction images are provided. COMPARISON: Prior outside hospital CT Scan of the head dated 07/11/2016 DISCUSSION: Again identified is a right parietal approach PICKLE MAKER shunt catheter with distal tip lies within [...] adverse change. 2. Stable right parietal approach PICKLE MAKER shunt catheter with adequately decompressed ventricular system. 3. 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 Chest Chest 1view EXAM: XR CHEST 1 VIEW 07/11 [facility] 1view DX DX /2015 - [facility] This report was dictated by a Optical Design Engineer/Fellow. I have personally reviewed the images as Center well as the Resident's interpretation and agree with the findings. DATE: 07/11/2016 2230 hours Read by: Macy Campos MD Resident: Macy Campos MD Dictated Date/time: 07/11/16 22:49 Electronically Signed by: Aron Pacheco 07/12/16 08:18 FINAL REPORT INDICATION: [place] COMPARISON: Chest radiograph 07/11/2016 TECHNIQUE: AP chest FINDINGS: Lines and tubes: Abandoned and calcified discontinuous PICKLE MAKER shunt tubing is redemonstrated over the right lower neck and anterior chest, coursing over the upper abdomen. Additional PICKLE MAKER shunt tubing is seen over the right [...] No acute cardiopulmonary abnormality. 2. Partially visualized PICKLE MAKER shunt tubing as discussed above. Vital Signs Vital Sign Value Date Comments Source Respitory Rate 16 07/16/2016 [facility] Systolic (mm Hg) 134 07/16/2016 [facility] Diastolic (mm Hg) 63 07/16/2016 [facility] Temperature Oral (F) 98.2 F 07/16/2016 [facility] Temperature Oral (F) 98.6 F 07/16/2016 [facility] Respitory Rate 14 07/16/2016 [facility] Diastolic (mm Hg) 81 07/16/2016 [facility] Systolic (mm Hg) 131 07/16/2016 [facility] Weight 84.545 07/16/2016 [facility] Respitory Rate 20 07/16/2016 [facility] Heart Rate 110 07/16/2016 [facility] Temperature Oral (F) 98.8 F 07/16/2016 [facility] BMI Calculated 35.22 07/16/2016 [facility] Height 154.94 cm 07/16/2016 [facility] Systolic (mm Hg) 126 07/16/2016 [facility] Diastolic (mm Hg) 87 07/16/2016 [facility] Respitory Rate 12 07/14/2016 [facility] Temperature Oral (F) 97.9 F 07/14/2016 [facility] Systolic (mm Hg) 111 07/14/2016 [facility] Diastolic (mm Hg) 72 07/14/2016 [facility] Respitory Rate 16 07/14/2016 [facility] Systolic (mm Hg) 117 07/14/2016 [facility] Diastolic (mm Hg) 79 07/14/2016 [facility] Respitory Rate 13 07/14/2016 [facility] Systolic (mm Hg) 110 07/14/2016 [facility] Diastolic (mm Hg) 61 07/14/2016 [facility] Heart Rate 84 07/14/2016 [facility] Heart Rate 75 07/14/2016 [facility] Heart Rate 81 07/14/2016 [facility] Temperature Oral (F) 98.0 F 07/13/2016 [facility] Temperature Oral (F) 98.1 F 07/13/2016 [facility] Weight 84.545 07/12/2016 [facility] Weight 84.545 07/12/2016 [facility] Height 152.4 cm 07/12/2016 [facility] BMI Calculated 36.4 07/12/2016 [facility] Encounters Location Location Encounter Encounter Reason Attending ADM DC Status Source Details Type Number For Provider Date Date Visit [facility] [id number] [place] 07/12 07/14 Patsy Decker /2015 [facility] ([place], [place]) Emergency [id number] [place] 07/16 07/16 [facility] Kenyon Chung /2015 [facility] Procedures Procedure Code Date Perfomer Comments Source Creation of PICKLE MAKER [id number] [facility] shunt Creation of PICKLE MAKER [id number] [facility]
[2018-12-28 10:41] LABS: Urine Blood TRACE (NEG); Urine Glucose NEGATIVE (NEG); Urine Protein NEGATIVE (NEG); Urine Specific Gravity 1.025 (1.005-1.030); Urine pH 5.5 (5.0-7.0)
[2018-12-28] MEDS ORDERED: KETOROLAC 30 MG/ML INJ ONE (11:34)
--- NOTE | 2018-12-28 11:51 | RAD REPORT ---
EXAM DESCRIPTION: RAD - Shuntogram - 12/28/2018 11:06 am CLINICAL HISTORY: Shunt series COMPARISON: May 2018 TECHNIQUE: Multiple views of the head, neck, chest and abdomen obtained. FINDINGS: Old shunt tubing is seen in the right-side neck and chest. Current shunt tube extends from the right-side across midline into the left upper quadrant of the abdomen. No abnormal bend or kink. No finding to suspect a dislodged or disconnected shunt tube. No acute finding in the chest. No acute finding in the abdomen. IMPRESSION: Negative shunt series.
[2018-12-28 11:54] LABS: Urine RBC <5 /HPF (NONE SEEN)
[2018-12-28 11:55] LABS: Urine Bacteria 20-50 /HPF (<20); Urine Culture Reflex Order REFLEXED
--- NOTE | 2018-12-28 12:16 | EDPHYS ---
Physician Documentation [facility] Name: Shanna Estrella Age: 23 yrs Sex: Female : 1995 Arrival Date: 12/28/2018 Time: 09:59 Bed 25 Private MD: None, None ED Physician Francisoc Becerra HPI: 12/28 10:40 This 23 yrs old Female presents to ER via Ambulatory with complaints of snw Abdominal Cramping. 10:40 The patient presents with abdominal pain in the lower abdomen. Onset: The snw symptoms/episode began/occurred suddenly, 3 day(s) ago, and became persistent. The symptoms do not radiate. Associated signs and symptoms: Pertinent positives: diarrhea, abd cramping. The symptoms are described as crampy. Severity of pain: At its worst the pain was moderate. It is unknown whether or not the patient has had similar symptoms in the past. The patient has not recently seen a physician. 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 - Social history:: Smoking status: Patient uses tobacco products, smokes one-half pack cigarettes per day. - Ebola Screening: : Patient denies travel to an Ebola-affected area in the 21 days before illness onset. ROS: 10:38 Constitutional: Negative for fever, chills, and weight loss, Eyes: Negative for injury, snw pain, redness, and discharge, ENT: Negative for injury, pain, and discharge, Neck: Negative for injury, pain, and swelling, Cardiovascular: Negative for chest pain, palpitations, and edema, Respiratory: Negative for shortness of breath, cough, wheezing, and pleuritic chest pain, Back: Negative for injury and pain, : Negative for injury, bleeding, discharge, and swelling, MS/Extremity: Negative for injury and deformity, Skin: Negative for injury, rash, and discoloration, Neuro: Negative for weakness, numbness, tingling, and seizure, + headache, shunt last revised 12 years ago 10:38 Abdomen/GI: Positive for abdominal pain, diarrhea, abdominal cramps. Exam: 10:37 Constitutional: This is a well developed, well nourished patient who is awake, alert, snw and in no acute distress. Head/Face: Normocephalic, atraumatic. Eyes: Pupils equal round and reactive to light, extra-ocular motions intact. Lids and lashes normal. Conjunctiva and sclera are non-icteric and not injected. Cornea within normal limits. Periorbital areas with no swelling, redness, or edema. ENT: Nares patent. No nasal discharge, no septal abnormalities noted. Tympanic membranes are normal and external auditory canals are clear. Oropharynx with no redness, swelling, or masses, exudates, or evidence of obstruction, uvula midline. Mucous membranes moist. Neck: Trachea midline, no thyromegaly or masses palpated, and no cervical lymphadenopathy. Supple, full range of motion without nuchal rigidity, or vertebral point tenderness. No Meningismus. Chest/axilla: Normal chest wall appearance and motion. Nontender with no deformity. No lesions are appreciated. Cardiovascular: Regular rate and rhythm with a normal S1 and S2. No gallops, murmurs, or rubs. Normal PMI, no JVD. No pulse deficits. Respiratory: Lungs have equal breath sounds bilaterally, clear to auscultation and percussion. No rales, rhonchi or wheezes noted. No increased work of breathing, no retractions or nasal flaring. Back: No spinal tenderness. No costovertebral tenderness. Full range of motion. Skin: Warm, dry with normal turgor. Normal color with no rashes, no lesions, and no evidence of cellulitis. MS/ Extremity: Pulses equal, no cyanosis. Neurovascular intact. Full, normal range of motion. Neuro: Awake and alert, GCS 15, oriented to person, place, time, and situation. Cranial nerves II-XII grossly intact. Motor strength 5/5 in all extremities. Sensory grossly intact. Cerebellar exam normal. Normal gait. Psych: Awake, alert, with orientation to person, place and time. Behavior, mood, and affect are within normal limits. 10:37 Abdomen/GI: Inspection: obese Bowel sounds: active, Palpation: mild abdominal tenderness, in the suprapubic area, right lower quadrant and left lower quadrant. Vital Signs: 10:09 BP 130 / 100; Pulse 99; Resp 18; Temp 98.5; Pulse Ox 100% on R/A; Weight 83.91 kg (R); aj1 Height 5 ft. 4 in. (162.56 cm) (R); Pain 6/10; 12:53 BP 131 / 92; Pulse 78; Resp 18; Temp 98.0; Pulse Ox 98% on R/A; aj 10:09 Body Mass Index 31.75 (83.91 kg, 162.56 cm) aj1 MDM: 10:14 Patient medically screened. snw 12:17 Data reviewed: vital signs, nurses notes. Data interpreted: Pulse oximetry: on room air snw is 100 %. Interpretation: normal. Counseling: I had a detailed discussion with the patient and/or guardian regarding: the historical points, exam findings, and any diagnostic results supporting the discharge/admit diagnosis, the presence of at least one elevated blood pressure reading (>120/80) during this emergency department visit, lab results, radiology results, the need for outpatient follow up, to return to the emergency department if symptoms worsen or persist or if there are any questions or concerns that arise at home. Special discussion: I have referred the patient to see his PCP for further evaluation of high blood pressure. Based on the patient's history, exam and DX evaluation, there is no indication for emergent intervention or inpatient [place]. It is understood by the patient/guardian that if the SXs persist or worsen they need to return immediately for re-evaluation. Based on the history and exam findings, there is no indication for further emergent testing or inpatient evaluation. I discussed with the patient/guardian the need to see the neurologist for further evaluation of the symptoms. I discussed with the patient/guardian the need to see the primary care provider for further evaluation of the symptoms. 12/28 10:13 Order name: Urine Microscopic Only; Complete Time: 11:56 snw 12/28 10:34 Order name: Urine Dipstick--Ancillary (enter results); Complete Time: 10:58 bd 05/14 10:13 Order name: Shuntogram XRAY; Complete Time: 11:56 snw 12/28 10:34 Order name: Urine --Ancillary (enter results); Complete Time: 10:58 bd 12/28 11:57 Order name: Urine Culture EDMS 12/28 10:13 Order name: Urine Test (obtain specimen); Complete Time: 10:39 snw 12/28 10:13 Order name: Urine Dipstick-Ancillary (obtain specimen); Complete Time: 10:39 snw Administered Medications: 11:25 Drug: TORadol 30 mg Route: IM; Site: left gluteus; aj 12:54 Follow up: Response: No adverse reaction; No change in condition aj 12:15 Drug: Zofran 4 mg Route: PO; aj 12:55 Follow up: Response: Nausea is decreased aj 12:15 Drug: Macrobid 100 mg Route: PO; aj 12:55 Follow up: Response: No adverse reaction aj 12:19 Drug: [place] 5 mg-325 mg 1 tabs Route: PO; aj 12:55 Follow up: Response: No adverse reaction aj Disposition: 13:00 Co-signature as Attending Physician, Francisco Becerra MD I agree with the assessment and rico plan of care. Disposition: 12/28/18 12:15 Discharged to Home. Impression: Urinary tract infection, site not specified, Volume depletion, Headache. - Condition is Stable. - Discharge Instructions: Back Pain, Adult, General Headache Without Cause, Hypertension, Urinary Tract Infection, Adult, Rehydration, Adult. - Prescriptions for Zofran 4 mg Oral Tablet - take 1 tablet by ORAL route every 12 hours As needed; 6 tablet. Macrobid 100 mg Oral Capsule - take 1 capsule by ORAL route every 12 hours for 10 days; 20 capsule. - Work release form, Medication Reconciliation Form, Thank You Letter, Antibiotic Education, Prescription Opioid Use form. - Follow up: Private Physician; When: 2 - 3 days; Reason: Recheck today's complaints, Continuance of care, Re-evaluation by your physician. Follow up: Emergency Department; When: As needed; Reason: Worsening of condition. Signatures: Dispatcher [employer] EDND Matilda Campbell RN BANG ajAnnalee Miller RN RN aj Anderson, Corey, MD MD cha Therrien, Shelly, DENTURE CONTOUR WIRE SPECIALIST-C DENTURE CONTOUR WIRE SPECIALIST-Csnw Corrections: (The following items were deleted from the chart) 12:55 12:15 12/28/2018 12:15 Discharged to Home. Impression: Urinary tract infection, site aj not specified; Volume depletion; Headache. Condition is Stable. Forms are Medication Reconciliation Form, Thank You Letter, Antibiotic Education, Prescription Opioid Use. Follow up: Private Physician; When: 2 - 3 days; Reason: Recheck today's complaints, Continuance of care, Re-evaluation by your physician. Follow up: Emergency Department; When: As needed; Reason: Worsening of condition. snw
--- NOTE | 2018-12-28 12:16 | ER ---
Nurse's Notes [facility] Name: Shanna Estrella Age: 23 yrs Sex: Female : 1995 Arrival Date: 12/28/2018 Time: 09:59 Bed 25 Private MD: None, None Diagnosis: Urinary tract infection, site not specified;Volume depletion;Headache Presentation: 12/28 10:05 Presenting complaint: Patient states: Thursday she had diarrhea and then on Thursday she aj1 had hard stools and felt constipated. Reports that she has been having an upset stomach after she eats meat. Transition of care: patient was not received from another setting of care. Onset of symptoms was December 2018. Risk Assessment: Do you want to hurt yourself or someone else? Patient reports no desire to harm self or others. Initial Sepsis Screen: Does the patient meet any 2 criteria? No. Patient's initial sepsis screen is negative. Does the patient have a suspected source of infection? Yes: Acute abdominal pain. Care prior to arrival: None. 10:05 Method Of Arrival: Ambulatory aj1 10:05 Acuity: ELI 3 aj1 Triage Assessment: 10:09 General: Appears in no apparent distress. comfortable, Behavior is calm, cooperative, aj1 appropriate for age. Pain: Complains of pain in abdomen. Neuro: Level of Consciousness is awake, alert, obeys commands, Oriented to person, place, time, situation. Cardiovascular: Patient's skin is warm and dry. Respiratory: Airway is patent Respiratory effort is even, unlabored, Respiratory pattern is regular, symmetrical. GI: Reports diarrhea, nausea. 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 - Social history:: Smoking status: Patient uses tobacco products, smokes one-half pack cigarettes per day. - Ebola Screening: : Patient denies travel to an Ebola-affected area in the 21 days before illness onset. Screenin:40 Abuse screen: Denies threats or abuse. Denies injuries from another. Nutritional aj screening: No deficits noted. Tuberculosis screening: No symptoms or risk factors identified. Fall Risk None identified. Assessment: 10:40 General: Appears in no apparent distress. comfortable, Behavior is calm, cooperative, aj appropriate for age. Pain: Complains of pain in abdomen. Neuro: Level of Consciousness is awake, alert, obeys commands, Oriented to person, place, time, situation, Appropriate for age. Respiratory: Airway is patent Respiratory effort is even, unlabored, Respiratory pattern is regular, symmetrical. GI: Abdomen is non-distended, obese, Bowel sounds present X 4 quads. Abd is soft and non tender X 4 quads. Reports constipation, cramping. Derm: Skin is intact, is healthy with good turgor, Skin is pink, warm \T\ dry. normal. 12:53 Reassessment: Patient appears in no apparent distress at this time. No changes from aj previously documented assessment. Patient and/or family updated on plan of care and expected duration. Pain level reassessed. Patient is alert, oriented x 3, equal unlabored respirations, skin warm/dry/pink. Patient states symptoms have improved. Vital Signs: 10:09 BP 130 / 100; Pulse 99; Resp 18; Temp 98.5; Pulse Ox 100% on R/A; Weight 83.91 kg (R); aj1 Height 5 ft. 4 in. (162.56 cm) (R); Pain 6/10; 12:53 BP 131 / 92; Pulse 78; Resp 18; Temp 98.0; Pulse Ox 98% on R/A; aj 10:09 Body Mass Index 31.75 (83.91 kg, 162.56 cm) aj1 ED Course: 09:59 Patient arrived in ED. mr 09:59 None, None is Private Physician. mr 10:08 Triage completed. aj1 10:09 Arm band placed on Patient placed in an exam room. aj1 10:12 Zabrina Soto FNP-C [facility]. snw 10:12 Francisco Becerra MD is Attending Physician. snw 10:37 Annalee Martinez, RN is Primary Nurse. aj 10:39 Patient has correct armband on for positive identification. Bed in low position. Call ss light in reach. Side rails up X 1. 11:05 Shuntogram XRAY In Process Unspecified. EDMS 12:53 No provider procedures requiring assistance completed. Patient did not have IV access aj during this emergency room visit. Administered Medications: 11:25 Drug: TORadol 30 mg Route: IM; Site: left gluteus; aj 12:54 Follow up: Response: No adverse reaction; No change in condition aj 12:15 Drug: Zofran 4 mg Route: PO; aj 12:55 Follow up: Response: Nausea is decreased aj 12:15 Drug: Macrobid 100 mg Route: PO; aj 12:55 Follow up: Response: No adverse reaction aj 12:19 Drug: [place] 5 mg-325 mg 1 tabs Route: PO; aj 12:55 Follow up: Response: No adverse reaction aj Outcome: 12:15 Discharge ordered by MD. snw 12:53 Discharged to home ambulatory, with significant other. aj 12:53 Condition: good 12:53 Discharge instructions given to patient, significant other, Instructed on discharge instructions, follow up and referral plans. medication usage, Demonstrated understanding of instructions, follow-up care, medications, Prescriptions given X 2. 12:55 Patient left the ED. aj Signatures: Dispatcher [employer] EDMatilda Brewer, RN RN ajAnnalee Miller, RN RN aj Zabrina Soto, LOANS CONSULTANT-C LOANS CONSULTANT-Csnw Nathan Suzi Hammond, BANG CUENCA ss
[2018-12-28] MEDS ORDERED: NITROFURAN MACRO 100 MG CAP PO ONE (12:24)
[2018-12-28] MEDS ORDERED: ONDANSETRON 4 MG (ODT) TAB ONE (12:24)
[2018-12-28] MEDS ORDERED: HYDROCODONE/APAP 5/325 MG TAB ONE (12:32)
== END 2018-12-28 12:55 | disposition home or self-care (01) ==
LOC: ER 09:56
DX: N39.0 Urinary tract infection, site not specified (principal); E86.9 Volume depletion, unspecified; R51 Headache; F32.9 Major depressive disorder, single episode, unspecified; G40.909 Epilepsy, unspecified, not intractable, without status epilepticus; F17.210 Nicotine dependence, cigarettes, uncomplicated; Z88.1 Allergy status to other antibiotic agents; Z88.0 Allergy status to penicillin; Z88.8 Allergy status to other drugs, medicaments and biological substances
CPT/HCPCS: 49427; 75809; 81003; 81015; 81025; 87086; 87088; 96372; 99283

== ENCOUNTER 2019-01-24 16:38 | Emergency (ER) | payer SELFPAY ==
--- OUTSIDE RECORDS SUMMARY | 2019-01-24 16:43 | XMS REPORT | Continuity of Care Document ---
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, [facility], type II [facility] Hydrocephalus Resolved Problem 07/19/2016 [facility] Depression Resolved Problem 07/19/2016 [facility] PTSD (<span Resolved Problem 07/19/2016 ID="[id number] [facility],M ">Confirmed</spa H [place] n>) [facility] PTSD (<span Resolved Problem 07/19/2016 ID="[id number] [facility],M ">Confirmed</spa H [place] n>) [facility] HEADACHE Active [facility] Medications Medication Details Route Status Patient Ordering Order Source Instructions Provider Date Ketorolac 60 mg, Route: No Longer IM, Drug form: Active 2015 [facility] INJ, ONCE, Dosing Weight 84.545, kg, Priority: STAT, Start date: 07/15/16 23:21:00 STUDIO DESIGNER, Stop date: 07/15/16 23:21:00 STUDIO DESIGNER Valium 5 mg, Route: No Longer IM, Drug form: Active 2015 [facility] INJ, ONCE, Dosing Weight 84.545, kg, Priority: STAT, Start date: 07/15/16 23:21:00 STUDIO DESIGNER, Stop date: 07/15/16 23:21:00 STUDIO DESIGNER Ativan 1 mg, 0.5 mL, No Longer [facility] Route: IVP, Active [facility] Medical Drug form: INJ, Center ONCE, Dosing Weight 84.545, kg, PRN Anxiety, Start date: 07/13/16 23:15:00 CSTNotes: (Same as: Ativan) nystatin 1 appl, Route: No Longer [facility] topical 100,000 TOP, TID, Drug Active 2015 Medical units/g cream form: CRM, Center Start date: 07/13/16 17:00:00 STUDIO DESIGNER, Duration: 30 day, Stop date: 08/12/16 13:00:00 CSTNotes: (Same as:Mycostatin, Nilstat) For external use only. Nystatin 293140 1 appl, Route: Inactive [facility] UNT/ML / TOP, TID, Drug 2015 Medical Triamcinolone form: [facility], [place] Acetonide 1 Start date: MG/ML Topical 07/13/16 Cream 9:00:00 STUDIO DESIGNER, Duration: 30 day, Stop date: 08/11/16 17:00:00 STUDIO DESIGNER Sodium Chloride 250 mL, 250 Inactive [facility] 0.154 MEQ/ML ml/hr, Infuse 2015 Medical Injectable Over: 1 hr, [place] Solution Route: IV, 250, Drug form: INJ, ONCE, Priority: STAT, Dosing Weight 84.545 kg, Start date: 07/12/16 16:18:00 STUDIO DESIGNER, Duration: 1 doses or times, Stop date: 07/12/16 16:18:00 STUDIO DESIGNER Promethazine 12.5 mg, 0.5 No Longer [facility] mL, Route: Active 2015 Medical IVPB, Drug Center form: INJ, Q4H, Dosing Weight 84.545, kg, PRN as needed for nausea/vomiting , Start date: 07/12/16 16:17:00 STUDIO DESIGNER, Duration: 30 day, Stop date: 08/11/16 16:16:00 CSTNotes: Do not give IV push. (Same as: Phenergan) Docusate 100 mg, 1 cap, No Longer [facility] Route: PO, Drug Active 2015 Medical form: CAP, Center Q12H, Dosing Weight 84.545, kg, Start date: 07/12/16 9:00:00 STUDIO DESIGNER, Duration: 30 day, Stop date: 08/10/16 21:00:00 CSTNotes: (Same as: Colace) (Do Not Crush) sennosides, [facility] 8.6 mg, 1 tab, No Longer [place] Route: PO, Drug Active 2015 Medical Form: TAB, Center Dosing Weight 84.545, kg, Q12H, Start date: 07/12/16 9:00:00 STUDIO DESIGNER, Duration: 30 day, Stop date: 08/10/16 21:00:00 CSTNotes: (Same as: Senokot) Saline Flush 10 ml, Route: No Longer Patsy 0.9% IVP, Drug Form: Active 2015 Medical INJ, Dosing Center Weight 84.545, kg, Q12H, Start date: 07/12/16 9:00:00 STUDIO DESIGNER, Duration: 30 day, Stop date: 08/10/16 21:00:00 [...] Pain Score 1-3, Start date: 07/12/16 7:14:00 STUDIO DESIGNER, Duration: 30 day, Stop date: 08/11/16 7:13:00 [...] Abnormal Lab Result, Start date: 07/11/16 22:18:00 STUDIO DESIGNER, Duration: 30 day, Stop date: 08/10/16 22:17:00 [...] 25 gm, 50 mL, No Longer [facility] Syringe Route: IVP, Active 2015 Medical Drug Form: INJ, Center Dosing Weight 84.545, kg, PRN, PRN Abnormal Lab Result, Start date: 07/11/16 22:18:00 STUDIO DESIGNER, Duration: 30 day, Stop date: 08/10/16 22:17:00 STUDIO DESIGNER Bisacodyl 10 mg, 1 supp, No Longer [facility] Route: MA, Drug Active 2015 Medical form: SUPP, Center Daily, Dosing Weight 84.545, kg, PRN Constipation, Start date: 07/11/16 22:18:00 STUDIO DESIGNER, Duration: 30 day, Stop date: 08/10/16 22:17:00 CSTNotes: (Same As: Dulcolax, Bisco-Lax) Saline Flush 10 ml, Route: No Longer [facility] 0.9% IVP, Drug Form: Active 2015 Medical INJ, Dosing Center Weight 84.545, kg, PRN, PRN Line Flush, Start date: 07/11/16 22:18:00 STUDIO DESIGNER, Duration: 30 day, Stop date: 08/10/16 22:17:00 CSTNotes: (Same as: BD Posiflush) Ondansetron 4 mg, 2 mL, No Longer [facility] Route: IVP, Active 2015 Medical Drug form: INJ, Center Q8H, Dosing Weight 84.545, kg, PRN Nausea & Vomiting, Start date: 07/11/16 22:18:00 STUDIO DESIGNER, Duration: 30 day, Stop date: 08/10/16 22:17:00 CSTNotes: (Same as: Leeanne) MEDICATION WASTE Product Size: 4 mg Product Wasted: _0__ mg Acetaminophen 1 tab, Route: No Longer [place] 325 MG / PO, Drug Form: Active 2016 Medical Hydrocodone TAB, Dosing Center Bitartrate 10 Weight 84.545, MG Oral Tablet kg, Q4H, PRN Pain Score 4-6, Start date: 07/11/16 22:18:00 STUDIO DESIGNER, Duration: 30 day, Stop date: 08/10/16 22:17:00 CSTNotes: Do not exceed 4gm/day of acetaminophen. (Same as: Elsa 325/10) Acetaminophen 1 tab, Route: No Longer [place] 325 MG / PO, Drug Form: Active 2016 Medical Hydrocodone TAB, Dosing Center Bitartrate 5 MG Weight 84.545, Oral Tablet kg, Q4H, PRN Pain Score 1-3, Start date: 07/11/16 22:18:00 STUDIO DESIGNER, Duration: 30 day, Stop date: 08/10/16 22:17:00 CSTNotes: (Same as: Elsa 325/5) Do not exceed 4gm/day of acetaminophen. Sodium Chloride 1,000 mL, Rate: No Longer [place] 0.154 MEQ/ML 75 ml/hr, Active 2015 Medical Injectable Infuse over: Center Solution 13.3 hr, Route: IV, Dosing Weight 84.545 kg, Total Volume: 1,000, Start date: 07/11/16 22:18:00 STUDIO DESIGNER, Duration: 30 day, Stop date: 08/10/16 22:17:00 STUDIO DESIGNER Reglan 10 mg, 2 mL, Inactive [place] Route: IVP, 2015 Medical Drug form: INJ, Center ONCE, Dosing Weight 84.545, kg, Priority: STAT, Start date: 07/11/16 20:59:00 STUDIO DESIGNER, Stop date: 07/11/16 20:59:00 CSTNotes: (Same as: Reglan) Sodium Chloride 1,000 mL, 1,000 Inactive [place] 0.154 MEQ/ML ml/hr, Infuse 2016 Medical Injectable Over: 1 hr, Center Solution Route: IV, 1,000, Drug form: INJ, ONCE, Priority: STAT, Dosing Weight 84.545 kg, Start date: 07/11/16 20:59:00 STUDIO DESIGNER, Duration: 1 doses or times, Stop date: 07/11/16 20:59:00 STUDIO DESIGNER Acetaminophen 1,000 mg, 2 Inactive [place] tab, Route: PO, 2016 Medical Drug form: TAB, Center ONCE, Dosing Weight 84.545, kg, Priority: STAT, Start date: 07/11/16 20:59:00 STUDIO DESIGNER, Stop date: 07/11/16 20:59:00 CSTNotes: Max acetaminophen 4000 mg/day (4 gm/day). (Same as: Tylenol Extra Strength) Allergies, Adverse Reactions, Alerts Substance Category Reaction Severity Reaction Status Date Comments Source type Reported amoxicillin Assertion Drug Active [facility] allergy [facility] LaMICtal Assertion Drug Active MH allergy [facility] Medical Tape Assertion Drug Active [facility] allergy [place] penicillins Assertion Drug Active MH allergy [facility] Immunizations Immunization Date Given Site Status Last Updated Comments Source Results Order Name Results Value Reference Date Interpretation Comments Source Range Brain Brain shunt Clinical Indication:21 years Female with Pain and swelling 07/15 - shunt series DX /2015 - [facility] series DX Comparison: Shunt study 07/12/2016 Read by: Scot Saenz MD Dictated Date/time: 07/15/16 23:38 FINDINGS: Electronically Signed by: Scot Saenz MD 07/15/16 23:41 FINAL REPORT Radiographs of the right SEO ASSISTANT shunt obtained from the skull to the abdomen. Unchanged appearance of the SEO ASSISTANT shunt, which goes from the right lateral ventricle along the right neck, traverses the right upper chest to the left lower chest, and terminates in the left upper quadrant. No discontinuity of the SEO ASSISTANT shunt. 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 IMPRESSION: Unchanged appearance of right SEO ASSISTANT shunt. No discontinuity of the shunt catheter or other significant radiographic abnormality. Brain wo Brain wo Exam: MRI brain without and with contrast. 07/13 - [facility] contrast contrast MRI /2015 - Medical MRI [...] without and with contrast. 07/13 - [facility] contrast contrast MRI /2015 - Medical MRI [...] 34 mg/dL 15 - 45 07/13 [facility] FLUIDS [facility] BODY Color CSF Colorless Colorless 07/13 [place] FLUIDS [facility] (07/13/16 7:35 AM) Center BODY Clarity CSF Clear Clear 07/13 [facility] FLUIDS [facility] (07/13/16 7:35 AM) Center BODY Tube Num CSF xxxxxxx 07/13 [place] FLUIDS [facility] (07/13/16 7:35 AM) Center BODY RBC CSF 0 /mm3 0 - 03 07/13 [facility] FLUIDS [facility] BODY Supernat CSF Colorless Colorless 07/13 [place] FLUIDS [facility] (07/13/16 7:35 AM) Center BODY WBC CSF 1 /mm3 0 - 53 07/13 [facility] FLUIDS [facility] BODY Glucose CSF 56 mg/dL 45 - 80 07/13 [facility] FLUIDS /2015 [facility] IMMUNOLOGY PE Interp CSF 07/13 [facility] protein [facility] electropho [place] resis did not reveal evidence of an oligoclona l process in the SALES & SERVICE ASSOCIATE. The CSF IgG index is within the reference range indicating that there is no elevation in intracereb ral IgG synthesis. There is also no evidence of increased permeabili ty of the blood brain barrier based on the CSF/serum albumin ratio.The electronic medical record has been reviewed for relevant history.I have personally reviewed the test results and concur with the resident's interpreta tion.CPT: 41319-[id number] IMMUNOLOGY Description The gel 07/13 [facility] CSF demonstrat [facility] appropriat e resolution of the main protein bands. The gamma region shows continuous distributi on of proteins both in the CSF and in the serum. No oligoclona l bands are detected. IMMUNOLOGY IgG (CPE) 1010 mg/dL 694 - 1618 07/13 [facility] IMMUNOLOGY Alb (CPE) 4100.0 3400.0 - 07/13 [facility] mg/dL 5000.0 [facility] IMMUNOLOGY IgG Lvl CSF 1.7 mg/dL 2.0 - 4.0 07/13 [facility] IMMUNOLOGY Alb CSF 14.7 mg/dL 14.0 - 07/13 [facility] (CPE) 25.0 [facility] IMMUNOLOGY IgG Index 0.5 mg/dL 0.3 - 0.7 07/13 [facility] CHEM PANEL eGFR 128 07/13 Result Comment: The eGFR is calculated using the CKD-EPI formula. In most young, healthy individuals the eGFR will be >90 mL/ min/1.73m2. The eGFR declines with age. An eGFR of 60-89 may be normal in [facility] mL/min/1.7 some populations, particularly the elderly, for whom the CKD-EPI formula has not been extensively validated. Use of the eGFR is not recommended in the following populations: [address] Individuals with unstable creatinine concentrations, including [...] Lvl 8.8 mg/dL 8.5 - 10.5 07/13 [facility] CHEM PANEL CO2 23 meq/L 24 - 32 07/13 [facility] CHEM PANEL Chloride Lvl 108 meq/L 95 - 109 07/13 [facility] CHEM PANEL Creatinine 0.61 mg/dL 0.50 - 07/13 [facility] Lvl 1.40 [facility] CHEM PANEL Sodium Lvl 142 meq/L 135 - 145 07/13 [facility] CHEM PANEL BUN 7 mg/dL 7 - 22 07/13 [facility] CHEM PANEL Potassium 3.9 meq/L 3.5 - 5.1 07/13 [facility] Lvl /2015 [facility] CHEM PANEL Glucose Lvl 88 mg/dL 70 - 99 07/13 [facility] CHEM PANEL AGAP 14.9 meq/L 10.0 - 07/13 20.0 [facility] HEMATOLOGY Lymphocytes 37.9 % 20.0 - 07/13 40.0 [facility] HEMATOLOGY Segs 52.1 % 45.0 - 07/13 75.0 [facility] HEMATOLOGY Monocytes 7.3 % 2.0 - 12.0 07/13 [facility] HEMATOLOGY Basophils 0.8 % 0.0 - 1.0 07/13 [facility] HEMATOLOGY Eosinophils 1.9 % 0.0 - 4.0 07/13 [facility] HEMATOLOGY Segs-Bands # 3.8 K/CMM 1.5 - 8.1 07/13 [facility] HEMATOLOGY Eosinophils 0.1 K/CMM 0.0 - 0.5 07/13 [facility] HEMATOLOGY Monocytes # 0.5 K/CMM 0.0 - 0.8 07/13 [facility] HEMATOLOGY Lymphocytes 2.7 K/CMM 1.0 - 5.5 07/13 [facility] HEMATOLOGY Basophils # 0.1 K/CMM 0.0 - 0.2 07/13 [facility] HEMATOLOGY RBC 4.53 M/CMM 4.20 - 07/13 5.40 [facility] HEMATOLOGY WBC 7.2 K/CMM 3.7 - 10.4 07/13 [facility] HEMATOLOGY Hct 38.5 % 36.0 - 07/13 48.0 [facility] HEMATOLOGY Hgb 13.0 g/dL 12.0 - 07/13 16.0 [facility] HEMATOLOGY MCHC 33.9 g/dL 32.0 - 07/13 36.0 [facility] HEMATOLOGY MCH 28.8 pg 27.0 - 07/13 31.0 [facility] HEMATOLOGY RDW 14.0 % 11.5 - 07/13 14. [facility] HEMATOLOGY MPV 9.2 fL 7.4 - 10.4 07/13 [facility] HEMATOLOGY Platelet 283 K/CMM 133 - 450 07/13 [facility] HEMATOLOGY MCV 84.9 fL 80.0 - 07/13 [place] 98.0 /2015 [facility] HEMATOLOGY INR 0.96 0.85 - 07/13 [place] 1.17 /2015 [facility] HEMATOLOGY PTT 31.9 s 22.9 - 07/13 [place] 35.8 /2015 [facility] HEMATOLOGY PT 13.0 s 12.0 - 07/13 [facility] 14.7 [facility] Brain wo Brain wo EXAM: CT HEAD WITHOUT CONTRAST 07/13 [facility] contrast contrast CT /2015 - [facility] CT Center DATE: 07/13/2016 Read by: Marcos Jo MD Dictated Date/time: 07/13/16 06:58 Electronically Signed by: Marcos Jo MD 07/13/16 07:01 FINAL REPORT INDICATION: 21 years old Female patient with history of SEO ASSISTANT shunt placement , now complaining of headache. TECHNIQUE: Multiple axial images were obtained through the head from vertex to the skull base. Axial bone algorithm reconstruction images are provided. COMPARISON: Prior CT Scan of the head dated 07/12/2016 147 AM STUDIO DESIGNER DISCUSSION: Again identified is a right parietal approach SEO ASSISTANT shunt catheter with distal tip lies within [...] adverse change. 2. Stable right parietal approach SEO ASSISTANT shunt catheter with adequately decompressed ventricular system. 3. 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 CARDIAC Troponin-T null 0.000 - 07/12 [facility] ENZYMES 0.100 [facility] CARDIAC Total CK 33 unit/L 12 - 191 07/12 [facility] ENZYMES /2015 [facility] MYOGLOBIN Myoglobin 35 ng/mL 25 - 72 07/12 [place] /[address] [place] [address] Chest Chest 1view EXAM: XR CHEST 1 VIEW 07/12 - [facility] 1view DX DX /2015 [facility] DATE: 07/12/2016 4:10 PM STUDIO DESIGNER Read by: Albert Vail MD Dictated Date/time: 07/12/16 16:40 Electronically Signed by: Albert Vail 07/12/16 16:42 FINAL REPORT INDICATION: Chest pain COMPARISON: Yesterday TECHNIQUE: AP chest FINDINGS: Abandoned and calcified discontinuous SEO ASSISTANT shunt tubing is redemonstrated over the right lower neck and anterior chest, coursing over the upper abdomen. Additional SEO ASSISTANT shunt tubing is seen over t he right neck, extending over the midline chest and left upper quadrant; distal tubing is not well seen. Stable cardiomediastinal silhouette. No new pulmonary or pleural based abnormalities. IMPRESSION: No significant change. Brain Brain shunt EXAM: XR SHUNT SERIES 07/12 - [place] shunt series - Medical series DX This report was dictated by a Loading Unit Operator Seating/Fellow. I have personally reviewed the images as Center well as the Resident's interpretation and agree with the findings. DATE: 07/12/2016 7:03 AM STUDIO DESIGNER Read by: Siva Lanza MD Resident: Siva [...] the L3 level. IMPRESSION: 1. Right programmable SEO ASSISTANT shunt with unremarkable appearance. 2. 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 Skull 1 Skull 1 view EXAM: XR SKULL 1 VIEW 07/12 - [place] view DX DX /2015 - Medical This report was dictated by a Loading Unit Operator Seating/Fellow. I have personally reviewed the images as Center well as the Resident's interpretation and agree with the findings. DATE: 07/12/2016 7:03 AM STUDIO DESIGNER Read by: Siva Lanza MD Resident: Siva [...] DRUG U Phencyc Negative Negative 07/12 SCREEN [facility]* [place] (07/12/16 12:39 AM) DRUG U Opiate Scr Negative Negative 07/12 [facility] (07/12/16 12:39 AM) DRUG U Propoxyph Negative Negative 07/12 [facility] (07/12/16 12:39 AM) DRUG U Methadone Negative Negative 07/12 [facility] (07/12/16 12:39 AM) DRUG UDS Note See Note 07/12 [facility] (07/12/16 12:39 AM) DRUG U Benzodia Negative Negative 07/12 [facility] (07/12/16 12:39 AM) DRUG U Amph Scr Negative Negative 07/12 [facility] (07/12/16 12:39 AM) DRUG U Cannab Scr Negative Negative 07/12 [facility] (07/12/16 12:39 AM) DRUG U Cocaine Negative Negative 07/12 [facility] (07/12/16 12:39 AM) DRUG U Tori Scr Negative Negative 07/12 [facility]* [place] (07/12/16 12:39 AM) HEMATOLOGY Platelet 306 K/CMM 133 - 450 07/12 [facility] HEMATOLOGY RDW 13.5 % 11.5 - 07/12 [place] 14. [facility] HEMATOLOGY MPV 9.3 fL 7.4 - 10.4 07/12 [facility] HEMATOLOGY RBC 4.46 M/CMM 4.20 - 07/12 [place] 5.40 /2015 [facility] HEMATOLOGY Hgb 12.6 g/dL 12.0 - 07/12 [place] 16.0 /2015 [facility] HEMATOLOGY Hct 37.4 % 36.0 - 07/12 [place] 48.0 /2015 [facility] HEMATOLOGY MCV 83.9 fL 80.0 - 07/12 [place] 98.0 /2015 [facility] HEMATOLOGY WBC 9.4 K/CMM 3.7 - 10.4 07/12 /2015 [facility] HEMATOLOGY MCH 28.3 pg 27.0 - 07/12 [place] 31.0 /2015 [facility] HEMATOLOGY MCHC 33.8 g/dL 32.0 - 07/12 [facility] 36.0 [facility] HEMATOLOGY PTT 33.7 s 22.9 - 07/12 [place] 35.8 /2015 [facility] HEMATOLOGY INR 1.02 0.85 - 07/12 [place] 1.17 [facility] HEMATOLOGY PT 13.6 s 12.0 - 07/12 [place] 14.7 /2015 [facility] HEMATOLOGY Segs-Bands # 5.5 K/CMM 1.5 - 8.1 07/12 [facility] HEMATOLOGY Monocytes # 0.6 K/CMM 0.0 - 0.8 07/12 [facility] HEMATOLOGY Lymphocytes 3.0 K/CMM 1.0 - 5.5 07/12 [place] /2015 [facility] HEMATOLOGY Basophils # 0.1 K/CMM 0.0 - 0.2 07/12 [facility] HEMATOLOGY Eosinophils 0.1 K/CMM 0.0 - 0.5 07/12 [place] /2016 [facility] HEMATOLOGY Basophils 0.9 % 0.0 - 1.0 07/12 /2015 [facility] HEMATOLOGY Segs 58.7 % 45.0 - 07/12 [place] 75.0 [facility] HEMATOLOGY Lymphocytes 32.5 % 20.0 - 07/12 [place] 40.0 /2016 [facility] HEMATOLOGY Monocytes 6.5 % 2.0 - 12.0 07/12 [facility] HEMATOLOGY Eosinophils 1.4 % 0.0 - 4.0 07/12 [facility] URINE AND UA WBC 1 /HPF 0 - 5 07/12 [facility] URINE AND Micro? Not Indicated 07/12 [facility] *NA* [place] (07/12/16 12:39 AM) URINE AND UA <=1.0 0.1 - 1.0 07/12 [facility] Urobilinogen mg/dL [facility] URINE AND UA Protein Negative Negative 07/12 [facility] mg/dL mg/dL [facility] URINE AND UA Glucose Negative Negative 07/12 [facility] mg/dL mg/dL [facility] URINE AND UA Turbidity Clear Clear 07/12 [facility] (07/12/16 12:39 AM) [place] URINE AND UA Spec Grav 1.011 <=1.030 07/12 [facility] URINE AND UA pH 6.5 5.0 - 8.0 07/12 [facility] URINE AND UA Color Yellow Yellow 07/12 [facility] *NA* [place] (07/12/16 12:39 AM) URINE AND UA Sq Epi Moderate Few /LPF 07/12 [facility] STOOL /LPF /2015 [facility] URINE AND UA Leuk Est Negative Negative 07/12 [facility] (07/12/16 12:39 AM) [place] URINE AND UA Ketones Negative Negative 07/12 [facility] mg/dL mg/dL [facility] URINE AND UA Bili Negative Negative 07/12 [facility] *NA* [place] (07/12/16 12:39 AM) URINE AND UA Blood Negative Negative 07/12 [facility] (07/12/16 12:39 AM) [place] URINE AND UA Nitrite Negative Negative 07/12 [facility] (07/12/16 12:39 AM) [place] URINE CHEM U Preg Negative Negative 07/12 [facility] (07/12/16 12:39 AM) Center BLOOD BANK Antibody Negative 07/12 [facility] RESULTS Scrn [facility] (07/11/16 11:50 PM) [place] BLOOD BANK ABO/Rh A POS 07/12 [facility] RESULTS [facility] CHEM PANEL Glucose Lvl 93 mg/dL 70 - 99 07/12 [facility] CHEM PANEL AGAP 15.5 meq/L 10.0 - 07/12 [place] 20.0 [facility] CHEM PANEL eGFR 113 07/12 Result Comment: The eGFR is calculated using the CKD-EPI formula. In most young, healthy individuals the eGFR will be >90 mL/ min/1.73m2. The eGFR declines with age. An eGFR of 60-89 may be normal in [facility] mL/min/1. some populations, particularly the elderly, for whom the CKD-EPI formula has not been extensively validated. Use of the eGFR is not recommended in the following populations: [address] Individuals with unstable creatinine concentrations, including [...] Lvl 142 meq/L 135 - 145 07/[address] CHEM PANEL Creatinine 0.75 mg/dL 0.50 - 07/12 [facility] 1.40 [facility] CHEM PANEL BUN 6 mg/dL 7 - 22 07/[address] CHEM PANEL Calcium Lvl 8.8 mg/dL 8.5 - 10.5 07/[address] CHEM PANEL CO2 26 meq/L 24 - 32 07/[address] CHEM PANEL Potassium 3.5 meq/L 3.5 - 5.1 07/12 [facility] CHEM PANEL Chloride Lvl 104 meq/L 95 - 109 07/[address] Brain wo Brain wo EXAM: CT HEAD WITHOUT CONTRAST 07/12 - [facility] contrast contrast CT /2015 - [facility] DATE: 07/12/2016 147 AM STUDIO DESIGNER Read by: Marcos Jo MD Dictated Date/time: 07/12/16 10:11 Electronically Signed by: Marcos Jo MD 07/12/16 10:22 FINAL REPORT INDICATION: 21 years old Female patient with history of SEO ASSISTANT shunt placement , now complaining of headache. TECHNIQUE: Multiple axial images were obtained through the head from vertex to the skull base. Axial bone algorithm reconstruction images are provided. COMPARISON: Prior outside hospital CT Scan of the head dated 07/11/2016 DISCUSSION: Again identified is a right parietal approach SEO ASSISTANT shunt catheter with distal tip lies within [...] adverse change. 2. Stable right parietal approach SEO ASSISTANT shunt catheter with adequately decompressed ventricular system. 3. 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 Chest Chest 1view EXAM: XR CHEST 1 VIEW 07/11 [facility] 1view DX DX /2015 - [facility] This report was dictated by a Loading Unit Operator Seating/Fellow. I have personally reviewed the images as Center well as the Resident's interpretation and agree with the findings. DATE: 07/11/2016 2230 hours Read by: Macy Campos MD Resident: Macy Campos MD Dictated Date/time: 07/11/16 22:49 Electronically Signed by: Aron Pacheco 07/12/16 08:18 FINAL REPORT INDICATION: [place] COMPARISON: Chest radiograph 07/11/2016 TECHNIQUE: AP chest FINDINGS: Lines and tubes: Abandoned and calcified discontinuous SEO ASSISTANT shunt tubing is redemonstrated over the right lower neck and anterior chest, coursing over the upper abdomen. Additional SEO ASSISTANT shunt tubing is seen over the right [...] No acute cardiopulmonary abnormality. 2. Partially visualized SEO ASSISTANT shunt tubing as discussed above. Vital Signs Vital Sign Value Date Comments Source Respitory Rate 16 07/16/2016 [place] [facility] Systolic (mm Hg) 134 07/16/2016 [facility] Diastolic (mm Hg) 63 07/16/2016 [facility] Temperature Oral (F) 98.2 F 07/16/2016 [facility] Temperature Oral (F) 98.6 F 07/16/2016 [facility] Respitory Rate 14 07/16/2016 [facility] Diastolic (mm Hg) 81 07/16/2016 [facility] Systolic (mm Hg) 131 07/16/2016 [facility] Weight 84.545 07/16/2016 [facility] Respitory Rate 20 07/16/2016 [facility] Heart Rate 110 07/16/2016 [facility] Temperature Oral (F) 98.8 F 07/16/2016 [facility] BMI Calculated 35.22 07/16/2016 [facility] Height 154.94 cm 07/16/2016 [facility] Systolic (mm Hg) 126 07/16/2016 [facility] Diastolic (mm Hg) 87 07/16/2016 [facility] Respitory Rate 12 07/14/2016 [facility] Temperature Oral (F) 97.9 F 07/14/2016 [facility] Systolic (mm Hg) 111 07/14/2016 [facility] Diastolic (mm Hg) 72 07/14/2016 [facility] Respitory Rate 16 07/14/2016 [facility] Systolic (mm Hg) 117 07/14/2016 [facility] Diastolic (mm Hg) 79 07/14/2016 [facility] Respitory Rate 13 07/14/2016 [facility] Systolic (mm Hg) 110 07/14/2016 [facility] Diastolic (mm Hg) 61 07/14/2016 [facility] Heart Rate 84 07/14/2016 [facility] Heart Rate 75 07/14/2016 [facility] Heart Rate 81 07/14/2016 [facility] Temperature Oral (F) 98.0 F 07/13/2016 [facility] Temperature Oral (F) 98.1 F 07/13/2016 [facility] Weight 84.545 07/12/2016 [facility] Weight 84.545 07/12/2016 [facility] Height 152.4 cm 07/12/2016 [facility] BMI Calculated 36.4 07/12/2016 [facility] Encounters Location Location Encounter Encounter Reason Attending ADM DC Status Source Details Type Number For Provider Date Date Visit [facility] [id number] [place] 07/12 07/14 Patsy Decker /2015 [facility] Emergency [id number] [place] 07/16 07/16 [facility] Kenyon Chung /2015 [facility] Procedures Procedure Code Date Perfomer Comments Source Creation of SEO ASSISTANT [id number] [facility] shunt Creation of SEO ASSISTANT [id number] [facility]
[2019-01-24 18:29] LABS: Urine Blood 1+ (NEG); Urine Glucose NEGATIVE (NEG); Urine Protein NEGATIVE (NEG); Urine Specific Gravity 1.025 (1.005-1.030); Urine pH 5.5 (5.0-7.0)
--- NOTE | 2019-01-24 18:40 | EDPHYS ---
Physician Documentation [facility] Name: Shanna Estrella Age: 23 yrs Sex: Female : 1995 Arrival Date: 01/24/2019 Time: 16:44 Bed 24 Private MD: None, None ED Physician Francisco Becerra HPI: 01/24 18:40 This 23 yrs old Female presents to ER via Ambulatory with complaints of kb Abdominal Pain. 18:40 The patient presents with abdominal pain that is diffuse. Onset: The symptoms/episode kb began/occurred 1.5 month(s) ago. The symptoms do not radiate. Associated signs and symptoms: none. The symptoms are described as crampy. Modifying factors: The symptoms are alleviated by nothing, the symptoms are aggravated by eating meat. Severity of pain: At its worst the pain was mild moderate in the emergency department the pain has resolved. The patient has experienced similar episodes in the past. The patient has been recently seen at the [facility] Emergency Department, last month, for similar complaints. Pt reports she has generalized abd cramping after she eats meat. States she didn't eat a lot of meat in the past and recently started eating a lot more meat. States yesterday was the last time she had the pain and it started after eating 2 double meat cheeseburgers. States the pain started after the first burger, but she finished the other one and it was worse. . 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 - Social history:: Smoking status: Patient uses tobacco products, unknown amount Patient uses Patient/guardian denies using alcohol, street drugs, IV drugs. - Ebola Screening: : No symptoms or risks identified at this time. ROS: 18:40 Constitutional: Negative for fever, chills, and weight loss, ENT: Negative for injury, kb pain, and discharge, Neck: Negative for injury, pain, and swelling, Cardiovascular: Negative for chest pain, palpitations, and edema, Respiratory: Negative for shortness of breath, cough, wheezing, and pleuritic chest pain, Abdomen/GI: Negative for abdominal pain, nausea, vomiting, diarrhea, and constipation, Back: Negative for injury and pain, : Negative for injury, bleeding, discharge, and swelling, MS/Extremity: Negative for injury and deformity, Skin: Negative for injury, rash, and discoloration, Neuro: Negative for headache, weakness, numbness, tingling, and seizure. Exam: 18:40 Constitutional: This is a well developed, well nourished patient who is awake, alert, kb and in no acute distress. Head/Face: Normocephalic, atraumatic. ENT: Nares patent. No nasal discharge, no septal abnormalities noted. Tympanic membranes are normal and external auditory canals are clear. Oropharynx with no redness, swelling, or masses, exudates, or evidence of obstruction, uvula midline. Mucous membranes moist. Neck: Trachea midline, no thyromegaly or masses palpated, and no cervical lymphadenopathy. Supple, full range of motion without nuchal rigidity, or vertebral point tenderness. No Meningismus. Chest/axilla: Normal chest wall appearance and motion. Nontender with no deformity. No lesions are appreciated. Cardiovascular: Regular rate and rhythm with a normal S1 and S2. No gallops, murmurs, or rubs. Normal PMI, no JVD. No pulse deficits. Respiratory: Lungs have equal breath sounds bilaterally, clear to auscultation and percussion. No rales, rhonchi or wheezes noted. No increased work of breathing, no retractions or nasal flaring. Abdomen/GI: Soft, non-tender, with normal bowel sounds. No distension or tympany. No guarding or rebound. No evidence of tenderness throughout. Skin: Warm, dry with normal turgor. Normal color with no rashes, no lesions, and no evidence of cellulitis. MS/ Extremity: Pulses equal, no cyanosis. Neurovascular intact. Full, normal range of motion. Neuro: Awake and alert, GCS 15, oriented to person, place, time, and situation. Cranial nerves II-XII grossly intact. Motor strength 5/5 in all extremities. Sensory grossly intact. Cerebellar exam normal. Normal gait. Vital Signs: 17:00 BP 117 / 69; Pulse 87; Resp 18; Temp 98.2; Pulse Ox 98% on R/A; Weight 83.91 kg; Height aj 5 ft. 3 in. (160.02 cm); 18:53 BP 120 / 78; Pulse 80; Resp 18; Temp 98; Pulse Ox 100% on R/A; Pain 0/10; mg2 17:00 Body Mass Index 32.77 (83.91 kg, 160.02 cm) aj MDM: 17:41 Patient medically screened. kb 18:39 Data reviewed: vital signs, nurses notes. Data interpreted: Pulse oximetry: on room air kb is 98 %. Interpretation: normal. Counseling: I had a detailed discussion with the patient and/or guardian regarding: the historical points, exam findings, and any diagnostic results supporting the discharge/admit diagnosis, the need for outpatient follow up, a butcher all round, to return to the emergency department if symptoms worsen or persist or if there are any questions or concerns that arise at home. ED course: Pt has no pain at this time, no tenderness upon exam. Pt reports pain is generalized and crampy when she does have the pain and it only occurs after eating meat. Recommended follow up with GI. . 01/24 18:14 Order name: Urine Microscopic Only mg2 01/24 18:17 Order name: Urine Dipstick--Ancillary (enter results); Complete Time: 18:34 bd 01/24 18:17 Order name: Urine --Ancillary (enter results); Complete Time: 18:34 bd Administered Medications: No medications were administered Disposition: 01/24/19 18:39 Discharged to Home. Impression: Generalized abdominal pain - after eating meat only. - Condition is Stable. - Discharge Instructions: Abdominal Pain, Adult, [id number]. - Medication Reconciliation Form, Thank You Letter, Antibiotic Education, Prescription Opioid Use form. - Follow up: Emergency Department; When: As needed; Reason: Worsening of condition. Follow up: Private Physician; When: 2 - 3 days; Reason: Recheck today's complaints, Continuance of care, Re-evaluation by your physician. Addendum: 01/31/2019 12:37 Co-signature as Attending Physician, Francisco Becerra MD I agree with the assessment and c reeves plan of care. Signatures: Dispatcher [employer] EDTiffanie Crandall, RONIC PAYAM-Annalee Hodges RN Francisco Bennett MD MD cha Gardose, Michele, RN RN mg2 Corrections: (The following items were deleted from the chart) 01/24 18:53 18:39 01/24/2019 18:39 Discharged to Home. Impression: Generalized abdominal pain - mg2 after eating meat only. Condition is Stable. Forms are Medication Reconciliation Form, Thank You Letter, Antibiotic Education, Prescription Opioid Use. Follow up: Emergency Department; When: As needed; Reason: Worsening of condition. Follow up: Private Physician; When: 2 - 3 days; Reason: Recheck today's complaints, Continuance of care, Re-evaluation by your physician. kb
--- NOTE | 2019-01-24 18:40 | ER ---
Nurse's Notes [facility] Name: Shanna Estrella Age: 23 yrs Sex: Female : 1995 Arrival Date: 01/24/2019 Time: 16:44 Bed 24 Private MD: None, None Diagnosis: Generalized abdominal pain-after eating meat only Presentation: 01/24 16:59 Presenting complaint: Patient states: "Every time I eat meat I get stomach pains. I was aj in here a month ago and they told me I would be better after 4 days. I'm not better." Patient has not followed up with anyone. Transition of care: patient was not received from another setting of care. Care prior to arrival: None. 16:59 Method Of Arrival: Ambulatory aj 16:59 Acuity: ELI 3 aj 18:25 Onset of symptoms was January 24, 2019. Risk Assessment: Do you want to hurt yourself or mg2 someone else? Patient reports no desire to harm self or others. Initial Sepsis Screen: Does the patient meet any 2 criteria? No. Patient's initial sepsis screen is negative. Does the patient have a suspected source of infection? No. Patient's initial sepsis screen is negative. Triage Assessment: 17:00 General: Appears in no apparent distress. comfortable, Behavior is calm, cooperative, aj appropriate for age. Pain: Complains of pain in right upper quadrant. Neuro: Level of Consciousness is awake, alert, obeys commands, Oriented to person, place, time, situation, Appropriate for age. Respiratory: Airway is patent Respiratory effort is even, unlabored, Respiratory pattern is regular, symmetrical. GI: Reports upper abdominal pain. Derm: Skin is intact, is healthy with good turgor, Skin is pink, warm \\T\\ dry. normal. 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 - Social history:: Smoking status: Patient uses tobacco products, unknown amount Patient uses Patient/guardian denies using alcohol, street drugs, IV drugs. - Ebola Screening: : No symptoms or risks identified at this time. Screenin:24 Abuse screen: Denies threats or abuse. Denies injuries from another. Nutritional mg2 screening: No deficits noted. Tuberculosis screening: No symptoms or risk factors identified. Fall Risk None identified. Assessment: 18:24 General: Appears in no apparent distress. comfortable, Behavior is calm, cooperative. mg2 Pain: Complains of pain in abdomen and right upper quadrant Pain does not radiate. Pain currently is 2 out of 10 on a pain scale. Quality of pain is described as aching, Pain began gradually, Is intermittent. Neuro: Level of Consciousness is awake, alert, obeys commands, Oriented to person, place, time, situation. Cardiovascular: Capillary refill < 3 seconds Patient's skin is warm and dry. Respiratory: Airway is patent Respiratory effort is even, unlabored, Respiratory pattern is regular, symmetrical. GI: Bowel sounds present X 4 quads. Abd is soft and non tender. : Urine is see urine dip. EENT: No signs and/or symptoms were reported regarding the EENT system. Derm: Skin is intact, is healthy with good turgor, Skin is pink, warm \\T\\ dry. normal. Musculoskeletal: Circulation, motion, and sensation intact. Capillary refill < 3 seconds. Vital Signs: 17:00 BP 117 / 69; Pulse 87; Resp 18; Temp 98.2; Pulse Ox 98% on R/A; Weight 83.91 kg; Height aj 5 ft. 3 in. (160.02 cm); 18:53 BP 120 / 78; Pulse 80; Resp 18; Temp 98; Pulse Ox 100% on R/A; Pain 0/10; mg2 17:00 Body Mass Index 32.77 (83.91 kg, 160.02 cm) ED Course: 16:44 Patient arrived in ED. ag5 16:44 None, None is Private Physician. ag5 17:00 Triage completed. aj 17:00 Arm band placed on left wrist. Patient placed in an exam room. aj 17:40 Tiffanie Benoit FNP-C is PHCP. kb 17:40 Francisco Becerra MD is Attending Physician. kb 17:53 Jaime Garibay, BANG is Primary Nurse. mg2 18:24 No provider procedures requiring assistance completed. Patient did not have IV access mg2 during this emergency room visit. 18:26 Patient has correct armband on for positive identification. mg2 Administered Medications: No medications were administered Outcome: 18:39 Discharge ordered by . ilene 18:53 Discharged to home ambulatory. mg2 18:53 Condition: stable 18:53 Discharge instructions given to patient, Instructed on discharge instructions, follow up and referral plans. Demonstrated understanding of instructions, follow-up care. 18:53 Patient left the ED. mg2 Signatures: Tiffanie Benoit, ENGINEERING PROGRAM ANALYST-C PAYAM-Annalee Hodges RN RN aj Jaime Garibay RN RN mg2 Benjie Malik ag5
[2019-01-24 19:53] LABS: Urine Bacteria 20-50 /HPF (<20)
[2019-01-24 19:54] LABS: Calcium Oxalate Crystals- Ur PRESENT (NONE SEEN); Urine Culture Reflex Order REFLEXED
== END 2019-01-24 18:53 | disposition home or self-care (01) ==
LOC: ER 16:38
DX: R10.84 Generalized abdominal pain (principal); Z88.1 Allergy status to other antibiotic agents; Z88.8 Allergy status to other drugs, medicaments and biological substances; Z88.0 Allergy status to penicillin; Z72.0 Tobacco use
CPT/HCPCS: 81003; 81015; 81025; 87086; 87088; 99281

== ENCOUNTER 2019-04-29 22:11 | Emergency (ER) | payer SELFPAY ==
--- OUTSIDE RECORDS SUMMARY | 2019-04-29 22:15 | XMS REPORT | Continuity of Care Document ---
:1995 Author Organization [facility] Care Team Providers Name Role Phone [facility] Unavailable Unavailable Problems Problem Status Onset Classification Date Comments Source Date Reported Discharge 07/16/20 07/19/2016 Diagnosis: Acute [address] [place] [address] cervical sprain OTHER Active 07/15/20 [facility] [place] POSSIBLE Active 07/11/20 [facility] MALFUNCTION PERFORMANCE TEST CONSULTANT Medical [facility] HEADACHE Active 07/11/[address] Center Chiari Resolved Problem 07/19/2016 [facility] malformation Medical type II Center, (disorder) [facility] Hydrocephalus Resolved Problem 07/19/2016 [facility] (disorder) [facility] Depressive Resolved Problem 07/19/2016 [facility] disorder [facility] (disorder) [place] Posttraumatic Resolved Problem 07/19/2016 [facility] stress disorder [facility] (disorder) [place] HEADACHE Active [facility] Medications Medication Details Route Status Patient Ordering Order Source Instructions Provider Date Ketorolac 60 mg, Route: No Longer IM, Drug form: Active 2015 [facility] INJ, ONCE, Dosing Weight 84.545, kg, Priority: STAT, Start date: 07/15/16 23:21:00 SMALL CRAFT OPERATOR, Stop date: 07/15/16 23:21:00 SMALL CRAFT OPERATOR Valium 5 mg, Route: No Longer IM, Drug form: Active 2015 [facility] INJ, ONCE, Dosing Weight 84.545, kg, Priority: STAT, Start date: 07/15/16 23:21:00 SMALL CRAFT OPERATOR, Stop date: 07/15/16 23:21:00 SMALL CRAFT OPERATOR Ativan 1 mg, 0.5 mL, No Longer [facility] Route: IVP, Active 2015 Medical Drug form: INJ, Center ONCE, Dosing Weight 84.545, kg, PRN Anxiety, Start date: 07/13/16 23:15:00 CSTNotes: (Same as: Ativan) nystatin 1 appl, Route: No Longer [facility] topical 100,000 TOP, TID, Drug Active 2015 Medical units/g cream form: CRM, Center Start date: 07/13/16 17:00:00 SMALL CRAFT OPERATOR, Duration: 30 day, Stop date: 08/12/16 13:00:00 CSTNotes: (Same as:Mycostatin, Nilstat) For external use only. Nystatin [id number] 1 appl, Route: Inactive [place] UNT/ML / TOP, TID, Drug 2015 Medical Triamcinolone form: [facility], [place] Acetonide 1 Start date: MG/ML Topical 07/13/16 Cream 9:00:00 SMALL CRAFT OPERATOR, Duration: 30 day, Stop date: 08/11/16 17:00:00 SMALL CRAFT OPERATOR Sodium Chloride 250 mL, 250 Inactive [place] 0.154 MEQ/ML ml/hr, Infuse 2015 Medical Injectable Over: 1 hr, [place] Solution Route: IV, 250, Drug form: INJ, ONCE, Priority: STAT, Dosing Weight 84.545 kg, Start date: 07/12/16 16:18:00 SMALL CRAFT OPERATOR, Duration: 1 doses or times, Stop date: 07/12/16 16:18:00 SMALL CRAFT OPERATOR Promethazine 12.5 mg, 0.5 No Longer [place] mL, Route: Active 2015 Medical IVPB, Drug Center form: INJ, Q4H, Dosing Weight 84.545, kg, PRN as needed for nausea/vomiting , Start date: 07/12/16 16:17:00 SMALL CRAFT OPERATOR, Duration: 30 day, Stop date: 08/11/16 16:16:00 CSTNotes: Do not give IV push. (Same as: Phenergan) Docusate 100 mg, 1 cap, No Longer [place] Route: PO, Drug Active 2015 Medical form: CAP, Center Q12H, Dosing Weight 84.545, kg, Start date: 07/12/16 9:00:00 SMALL CRAFT OPERATOR, Duration: 30 day, Stop date: 08/10/16 21:00:00 CSTNotes: (Same as: Colace) (Do Not Crush) sennosides, CUSTODIAL 8.6 mg, 1 tab, No Longer [place] Route: PO, Drug Active 2015 Medical Form: TAB, Center Dosing Weight 84.545, kg, Q12H, Start date: 07/12/16 9:00:00 SMALL CRAFT OPERATOR, Duration: 30 day, Stop date: 08/10/16 21:00:00 CSTNotes: (Same as: Senokot) Saline Flush 10 ml, Route: No Longer [place] 0.9% IVP, Drug Form: Active 2015 Medical INJ, Dosing Center Weight 84.545, kg, Q12H, Start date: 07/12/16 9:00:00 SMALL CRAFT OPERATOR, Duration: 30 day, Stop date: 08/10/16 [...] Pain Score 1-3, Start date: 07/12/16 7:14:00 SMALL CRAFT OPERATOR, Duration: 30 day, Stop date: 08/11/16 7:13:00 CSTNotes: Not to exceed 400mg/day. (Same As: Ultram) tramadol 50 mg=1 tab, Inactive [place] hydrochloride PO, Q4H, PRN 2015 Medical 50 MG Oral for pain, X 10 Center Tablet [Ultram] day, # 60 tab, 0 Refill(s) senna 8.6 mg 8.6 mg=1 tab, Active [place] oral tablet PO, Q12H, X 14 2015 day, # 28 tab, Center 0 Refill(s) Docusate Sodium 100 mg=1 cap, Active [place] 100 MG Oral PO, Q12H, # 28 2015 Medical Capsule cap, 0 Center Refill(s) Regular 5 unit, 0.05 No Longer Insulin, Human mL, Route: Active 2015 Medical 100 UNT/ML SUB-Q, Drug Center Injectable form: SOLN, Solution PRN, Dosing Weight 84.545, kg, PRN Abnormal Lab Result, Start date: 07/11/16 22:18:00 SMALL CRAFT OPERATOR, Duration: 30 day, Stop date: 08/10/16 [...] 50% 25 gm, 50 mL, No Longer [facility] Syringe Route: IVP, Active 2015 Medical Drug Form: INJ, Center Dosing Weight 84.545, kg, PRN, PRN Abnormal Lab Result, Start date: 07/11/16 22:18:00 SMALL CRAFT OPERATOR, Duration: 30 day, Stop date: 08/10/16 22:17:00 SMALL CRAFT OPERATOR Bisacodyl 10 mg, 1 supp, No Longer [facility] Route: OR, Drug Active 2015 Medical form: SUPP, Center Daily, Dosing Weight 84.545, kg, PRN Constipation, Start date: 07/11/16 22:18:00 SMALL CRAFT OPERATOR, Duration: 30 day, Stop date: 08/10/16 22:17:00 CSTNotes: (Same As: Dulcolax, Bisco-Lax) Saline Flush 10 ml, Route: No Longer [place] 0.9% IVP, Drug Form: Active 2015 Medical INJ, Dosing Center Weight 84.545, kg, PRN, PRN Line Flush, Start date: 07/11/16 22:18:00 SMALL CRAFT OPERATOR, Duration: 30 day, Stop date: 08/10/16 22:17:00 CSTNotes: (Same as: BD Posiflush) Ondansetron 4 mg, 2 mL, No Longer [facility] Route: IVP, Active 2015 Medical Drug form: INJ, Center Q8H, Dosing Weight 84.545, kg, PRN Nausea & Vomiting, Start date: 07/11/16 22:18:00 SMALL CRAFT OPERATOR, Duration: 30 day, Stop date: 08/10/16 22:17:00 CSTNotes: (Same as: Zofran) MEDICATION WASTE Product Size: 4 mg Product Wasted: _0__ mg Acetaminophen 1 tab, Route: No Longer [place] 325 MG / PO, Drug Form: Active 2016 Medical Hydrocodone TAB, Dosing Center Bitartrate 10 Weight 84.545, MG Oral Tablet kg, Q4H, PRN Pain Score 4-6, Start date: 07/11/16 22:18:00 SMALL CRAFT OPERATOR, Duration: 30 day, Stop date: 08/10/16 22:17:00 CSTNotes: Do not exceed 4gm/day of acetaminophen. (Same as: [place] 325/10) Acetaminophen 1 tab, Route: No Longer [place] 325 MG / PO, Drug Form: Active 2016 Medical Hydrocodone TAB, Dosing Center Bitartrate 5 MG Weight 84.545, Oral Tablet kg, Q4H, PRN Pain Score 1-3, Start date: 07/11/16 22:18:00 SMALL CRAFT OPERATOR, Duration: 30 day, Stop date: 08/10/16 22:17:00 CSTNotes: (Same as: [place] 325/5) Do not exceed 4gm/day of acetaminophen. Sodium Chloride 1,000 mL, Rate: No Longer [place] 0.154 MEQ/ML 75 ml/hr, Active 2016 Medical Injectable Infuse over: Center Solution 13.3 hr, Route: IV, Dosing Weight 84.545 kg, Total Volume: 1,000, Start date: 07/11/16 22:18:00 SMALL CRAFT OPERATOR, Duration: 30 day, Stop date: 08/10/16 22:17:00 SMALL CRAFT OPERATOR Reglan 10 mg, 2 mL, Inactive [facility] Route: IVP, 2015 Medical Drug form: INJ, Center ONCE, Dosing Weight 84.545, kg, Priority: STAT, Start date: 07/11/16 20:59:00 SMALL CRAFT OPERATOR, Stop date: 07/11/16 20:59:00 CSTNotes: (Same as: Reglan) Sodium Chloride 1,000 mL, 1,000 Inactive [facility] 0.154 MEQ/ML ml/hr, Infuse 2016 Medical Injectable Over: 1 hr, Center Solution Route: IV, 1,000, Drug form: INJ, ONCE, Priority: STAT, Dosing Weight 84.545 kg, Start date: 07/11/16 20:59:00 SMALL CRAFT OPERATOR, Duration: 1 doses or times, Stop date: 07/11/16 20:59:00 SMALL CRAFT OPERATOR Acetaminophen 1,000 mg, 2 Inactive [facility] tab, Route: PO, 2016 Medical Drug form: TAB, Center ONCE, Dosing Weight 84.545, kg, Priority: STAT, Start date: 07/11/16 20:59:00 SMALL CRAFT OPERATOR, Stop date: 07/11/16 20:59:00 CSTNotes: Max acetaminophen 4000 mg/day (4 gm/day). (Same as: Tylenol Extra Strength) Allergies, Adverse Reactions, Alerts Substance Category Reaction Severity Reaction Status Date Comments Source type Reported amoxicillin Assertion Drug Active allergy [place] Assertion Drug Active allergy [facility] Medical Tape Assertion Drug Active allergy [place] penicillins Assertion Drug Active allergy [facility] Immunizations No Data Provided for This Section Results Order Name Results Value Reference Date Interpretation Comments Source Range BODY FLUIDS Protein CSF 34 15 - 45 07/13 [facility] BODY FLUIDS Color CSF Colorless Colorless 07/13 [facility] (07/13/16 7:35 AM) [facility] BODY FLUIDS Clarity CSF Clear Clear 07/13 [facility] (07/13/16 7:35 AM) [facility] BODY FLUIDS Tube Num CSF [id number] 07/13 [facility] (07/13/16 7:35 AM) [facility] BODY FLUIDS RBC CSF 0 0 - 03 07/13 [facility] BODY FLUIDS Supernat CSF Colorless Colorless 07/13 [facility] (07/13/16 7:35 AM) [facility] BODY FLUIDS WBC CSF 1 0 - 53 07/13 [facility] BODY FLUIDS Glucose CSF 56 45 - 80 07/13 [facility] IMMUNOLOGY PE Interp CSF CSF 07/13 [facility] protein [facility] [place] resis did not reveal evidence of an oligoclona l process in the NEUROSURGEON. The CSF IgG index is within the reference range indicating that there is no elevation in intracereb ral IgG synthesis. There is also no evidence of increased permeabili ty of the blood brain barrier based on the CSF/serum albumin ratio. The electronic medical record has been reviewed for relevant history. I have personally reviewed the test results and concur with the resident's interpreta tion. CPT: 02063-QG IMMUNOLOGY Description The gel 07/13 [facility] CSF demonstrat [facility] appropriat e resolution of the main protein bands. The gamma region shows continuous distributi on of proteins both in the CSF and in the serum. No oligoclona l bands are detected. IMMUNOLOGY IgG (CPE) 1010 694 - 1618 07/13 [facility] IMMUNOLOGY Alb (CPE) 4100.0 3400.0 - 07/13 [facility] 5000.0 [facility] IMMUNOLOGY IgG Lvl CSF 1.7 2.0 - 4.0 07/13 [facility] IMMUNOLOGY Alb CSF (CPE) 14.7 14.0 - 07/13 [facility] 25.0 [facility] IMMUNOLOGY IgG Index 0.5 0.3 - 0.7 07/13 [facility] CHEM PANEL eGFR 128 07/13 Result Comment: The [facility] eGFR is Center calculated using the CKD-EPI formula. In most young, healthy individuals the eGFR will be >90 mL/min/1.73m2 . The eGFR declines with age. An eGFR of 60-89 may be normal in some populations, particularly the elderly, for whom the CKD-EPI formula has not been extensively validated. Use of the eGFR is not recommended in the following populations:< br/>
Ling viduals with unstable creatinine concentration s, including patients and those with serious co-morbid conditions.<b r/>
Patie nts with extremes in muscle mass or diet.

The data above are obtained from the National Kidney Disease Education Program (NKDEP) which additionally recommends that when the eGFR is used in patients with extremes of body mass index for purposes of drug dosing, the eGFR should be multiplied by the estimated BMI. CHEM PANEL Calcium Lvl 8.8 8.5 - 10.5 07/13 [facility] CHEM PANEL CO2 23 24 - 32 07/13 [facility] CHEM PANEL Chloride Lvl 108 95 - 109 07/13 2015 [facility] CHEM PANEL Creatinine 0.61 0.50 - 07/13 [facility] Lvl 1.40 [facility] CHEM PANEL Sodium Lvl 142 135 - 145 07/13 [facility]2015 [facility] CHEM PANEL BUN 7 7 - 22 07/13 2015 [facility] CHEM PANEL Potassium Lvl 3.9 3.5 - 5.1 07/13 2015 [facility] CHEM PANEL Glucose Lvl 88 70 - 99 07/13 [facility] CHEM PANEL AGAP 14.9 10.0 - 07/13 [place] 20.0 /2015 [facility] HEMATOLOGY Lymphocytes 37.9 20.0 - 07/13 [place] 40.0 [facility] HEMATOLOGY Segs 52.1 45.0 - 07/13 [place] 75.0 /2015 [facility] HEMATOLOGY Monocytes 7.3 2.0 - 12.0 07/13 [facility] HEMATOLOGY Basophils 0.8 0.0 - 1.0 07/13 [facility] HEMATOLOGY Eosinophils 1.9 0.0 - 4.0 07/13 [facility] HEMATOLOGY Segs-Bands # 3.8 1.5 - 8.1 07/13 [facility] HEMATOLOGY Eosinophils # 0.1 0.0 - 0.5 07/13 [facility] HEMATOLOGY Monocytes # 0.5 0.0 - 0.8 07/13 [facility] HEMATOLOGY Lymphocytes # 2.7 1.0 - 5.5 07/13 [facility] HEMATOLOGY Basophils # 0.1 0.0 - 0.2 07/13 [facility] HEMATOLOGY RBC 4.53 4.20 - 07/13 [place] 5.40 /2015 [facility] HEMATOLOGY WBC 7.2 3.7 - 10.4 07/13 [facility] HEMATOLOGY Hct 38.5 36.0 - 07/13 [place] 48.0 [facility] HEMATOLOGY Hgb 13.0 12.0 - 07/13 [place] 16.0 [facility] HEMATOLOGY MCHC 33.9 32.0 - 07/13 [place] 36.0 /2015 [facility] HEMATOLOGY MCH 28.8 27.0 - 07/13 [place] 31.0 /2015 [facility] HEMATOLOGY RDW 14.0 11.5 - 07/13 [place] 14.5 [facility] HEMATOLOGY MPV 9.2 7.4 - 10.4 07/13 [facility] HEMATOLOGY Platelet 283 133 - 450 07/13 [facility] HEMATOLOGY MCV 84.9 80.0 - 07/13 [place] 98.0 [facility] HEMATOLOGY INR 0.96 0.85 - 07/13 [place] 1.17 /2015 [facility] HEMATOLOGY PTT 31.9 22.9 - 07/13 [place] 35.8 /2015 [facility] HEMATOLOGY PT 13.0 12.0 - 07/13 [place] 14.7 /2015 [facility] CARDIAC Troponin-T <0.010 0.000 - 07/12 [facility] ENZYMES 0.100 [facility] CARDIAC Total CK 33 12 - 191 07/12 [place] ENZYMES [facility] MYOGLOBIN Myoglobin 35 25 - 72 07/12 [facility] Center DRUG SCREEN U Phencyc Scr Negative Negative 07/12 [place] *NA* Medical (07/12/16 12:39 AM) Center DRUG SCREEN U Opiate Scr Negative Negative 07/12 [place] *NA* Medical (07/12/16 12:39 AM) Center DRUG SCREEN U Propoxyph Negative Negative 07/12 [place] Scr *NA* Medical (07/12/16 12:39 AM) Center DRUG SCREEN U Methadone Negative Negative 07/12 [facility] Scr *NA* Medical (07/12/16 12:39 AM) Center DRUG SCREEN UDS Note See Note 07/12 [place] *NA* Medical (07/12/16 12:39 AM) Center DRUG SCREEN U Benzodia Negative Negative 07/12 [place] Scr *NA* Medical (07/12/16 12:39 AM) Center DRUG SCREEN U Amph Scr Negative Negative 07/12 [place] *NA* Medical (07/12/16 12:39 AM) Center DRUG SCREEN U Cannab Scr Negative Negative 07/12 [place] *NA* Medical (07/12/16 12:39 AM) Center DRUG SCREEN U Cocaine Scr Negative Negative 07/12 [place] *NA* Medical (07/12/16 12:39 AM) Center DRUG SCREEN U Tori Scr Negative Negative 07/12 [place] *NA* Medical (07/12/16 12:39 AM) Center HEMATOLOGY Platelet 306 133 - 450 07/12 [facility] HEMATOLOGY RDW 13.5 11.5 - 07/12 [place] 14.5 [facility] HEMATOLOGY MPV 9.3 7.4 - 10.4 07/12 [facility] HEMATOLOGY RBC 4.46 4.20 - 07/12 [place] 5.40 /2015 [facility] HEMATOLOGY Hgb 12.6 12.0 - 07/12 [place] 16.0 [facility] Center HEMATOLOGY Hct 37.4 36.0 - 07/12 [place] 48.0 /2015 [facility] HEMATOLOGY MCV 83.9 80.0 - 07/12 [place] 98.0 /2015 [facility] HEMATOLOGY WBC 9.4 3.7 - 10.4 07/12 [facility] HEMATOLOGY MCH 28.3 27.0 - 07/12 [place] 31.0 /2015 [facility] HEMATOLOGY MCHC 33.8 32.0 - 07/12 [place] 36.0 /2015 [facility] HEMATOLOGY PTT 33.7 22.9 - 07/12 [place] 35.8 /2015 [facility] HEMATOLOGY INR 1.02 0.85 - 07/12 [place] 1.17 /2015 [facility] HEMATOLOGY PT 13.6 12.0 - 07/12 [place] 14.7 /2015 [facility] HEMATOLOGY Segs-Bands # 5.5 1.5 - 8.1 07/12 [facility] HEMATOLOGY Monocytes # 0.6 0.0 - 0.8 07/12 [facility] HEMATOLOGY Lymphocytes # 3.0 1.0 - 5.5 07/12 [facility] HEMATOLOGY Basophils # 0.1 0.0 - 0.2 07/12 [facility] HEMATOLOGY Eosinophils # 0.1 0.0 - 0.5 07/12 [facility] HEMATOLOGY Basophils 0.9 0.0 - 1.0 07/12 [facility] HEMATOLOGY Segs 58.7 45.0 - 07/12 [place] 75.0 /2015 [facility] HEMATOLOGY Lymphocytes 32.5 20.0 - 07/12 [place] 40.0 /2015 [facility] HEMATOLOGY Monocytes 6.5 2.0 - 12.0 07/12 [facility] HEMATOLOGY Eosinophils 1.4 0.0 - 4.0 07/12 [facility] URINE AND UA WBC 1 0 - 5 07/12 [facility] STOOL [facility] URINE AND Micro? Not Indicated 07/12 [facility] STOOL *NA* /2015 [facility] (07/12/16 12:39 AM) [place] URINE AND UA <=1.0 0.1 - 1.0 07/12 [facility] STOOL Urobilinogen mg/dL /2015 [facility] URINE AND UA Protein Negative Negative 07/12 [facility] STOOL mg/dL mg/dL /2015 [facility] URINE AND UA Glucose Negative Negative 07/12 [facility] STOOL mg/dL mg/dL /2015 [facility] URINE AND UA Turbidity Clear Clear 07/12 [facility] STOOL (07/12/16 12:39 AM) /2015 [facility] URINE AND UA Spec Grav 1.011 <=1.030 07/12 [facility] STOOL /2015 [facility] URINE AND UA pH 6.5 5.0 - 8.0 07/12 [facility] STOOL [facility] URINE AND UA Color Yellow Yellow 07/12 [facility] *NA* /2015 [facility] (07/12/16 12:39 AM) [place] URINE AND UA Sq Epi Moderate Few /LPF 07/12 [facility] STOOL /LPF /2015 [facility] URINE AND UA Leuk Est Negative Negative 07/12 [facility] STOOL (07/12/16 12:39 AM) [facility] URINE AND UA Ketones Negative Negative 07/12 [facility] mg/dL mg/dL [facility] URINE AND UA Bili Negative Negative 07/12 [facility] *NA* /2015 [facility] (07/12/16 12:39 AM) [place] URINE AND UA Blood Negative Negative 07/12 [facility] (07/12/16 12:39 AM) [facility] URINE AND UA Nitrite Negative Negative 07/12 [facility] (07/12/16 12:39 AM) [facility] URINE CHEM U Preg Negative Negative 07/12 [facility] (07/12/16 12:39 AM) [facility] BLOOD BANK Antibody Scrn Negative 07/12 [facility] RESULTS (07/11/16 11:50 PM) [facility] BLOOD BANK ABO/Rh A POS 07/12 [facility] RESULTS /2015 [facility] CHEM PANEL Glucose Lvl 93 70 - 99 07/12 [facility] CHEM PANEL AGAP 15.5 10.0 - 07/12 [place] 20.0 [facility] CHEM PANEL eGFR 113 07/12 Result Comment: The [facility] eGFR is Center calculated using the CKD-EPI formula. In most young, healthy individuals the eGFR will be >90 mL/min/1.73m2 . The eGFR declines with age. An eGFR of 60-89 may be normal in some populations, particularly the elderly, for whom the CKD-EPI formula has not been extensively validated. Use of the eGFR is not recommended in the following populations:< br/>
Ling viduals with unstable creatinine concentration s, including patients and those with serious co-morbid conditions.<b r/>
Patie nts with extremes in muscle mass or diet.

The data above are obtained from the National Kidney Disease Education Program (NKDEP) which additionally recommends that when the eGFR is used in patients with extremes of body mass index for purposes of drug dosing, the eGFR should be multiplied by the estimated BMI. CHEM PANEL Sodium Lvl 142 135 - 145 07/12 [facility]2015 [facility] CHEM PANEL Creatinine 0.75 0.50 - 07/12 [facility] Lvl 1.40 [facility] CHEM PANEL BUN 6 7 - 22 07/[address] CHEM PANEL Calcium Lvl 8.8 8.5 - 10.5 07/[address] CHEM PANEL CO2 26 24 - 32 07/[address] CHEM PANEL Potassium Lvl 3.5 3.5 - 5.1 07/[address] CHEM PANEL Chloride Lvl 104 95 - 109 07/[address] Pathology Reports No Data Provided for This Section Diagnostic Reports Report Value Date Source Brain shunt series Clinical Indication:21 years Female with Pain and swelling 07/15/2016 [place] DX Comparison: Shunt study 07/12/2016 FINDINGS: Radiographs of the right PERFORMANCE TEST CONSULTANT shunt obtained from the skull to the abdomen. Unchanged appearance of the PERFORMANCE TEST CONSULTANT shunt, which goes from the right lateral ventricle along the right neck, traverses the right upper chest to the left lower chest, and terminates in the left upper quadrant. No discontinuity of the PERFORMANCE TEST CONSULTANT shunt. 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 IMPRESSION: Unchanged appearance of right PERFORMANCE TEST CONSULTANT shunt. No discontinuity of the shunt catheter or other significant radiographic abnormality. Brain wo contrast Exam: MRI brain without and with contrast. 07/13/2016 [facility] MRI Exam: CSF flow study. Center INDICATION: Headache post LP. COMPARISON: CT July 13, 2016. TECHNIQUE: Multiecho [...] of suboccipital decompression are evident. Brain w/wo contrast Exam: MRI brain without and with contrast. 07/13/2016 [facility] MRI Exam: CSF flow study. Center INDICATION: Headache post LP. COMPARISON: CT July 13, 2016. TECHNIQUE: Multiecho [...] of suboccipital decompression are evident. Brain wo contrast CT EXAM: CT HEAD WITHOUT CONTRAST 07/13/2016 [facility] DATE: 07/13/2016 INDICATION: 21 years old Female patient with history of PERFORMANCE TEST CONSULTANT shunt placement, now complaining of headache. TECHNIQUE: Multiple axial images were obtained through the head from vertex to the skull base. Axial bone algorithm reconstruction images are provided. COMPARISON: Prior CT Scan of the head dated 07/12/2016 147 AM SMALL CRAFT OPERATOR DISCUSSION: Again identified is a right parietal approach PERFORMANCE TEST CONSULTANT shunt catheter with distal tip lies within [...] adverse change. 2. Stable right parietal approach PERFORMANCE TEST CONSULTANT shunt catheter with adequately decompressed ventricular system. 3. 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 Chest 1view DX EXAM: XR CHEST 1 VIEW 07/12/2016 [facility] DATE: 07/12/2016 4:10 PM SMALL CRAFT OPERATOR Center INDICATION: Chest pain COMPARISON: Yesterday TECHNIQUE: AP chest FINDINGS: Abandoned and calcified discontinuous PERFORMANCE TEST CONSULTANT shunt tubing is redemonstrated over the right lower neck and anterior chest, coursing over the upper abdomen. Additional PERFORMANCE TEST CONSULTANT shunt tubing is seen over t he right neck, extending over the midline chest and left upper quadrant; distal tubing is not well seen. Stable cardiomediastinal silhouette. No new pulmonary or pleural based abnormalities. IMPRESSION: No significant change. Brain shunt series EXAM: XR SHUNT SERIES 07/12/2016 [facility] DATE: 07/12/2016 7:03 AM SMALL CRAFT OPERATOR INDICATION: Headache(s) ADDITIONAL INFORMATION: None. COMPARISON: Brain [...] the L3 level. IMPRESSION: 1. Right programmable PERFORMANCE TEST CONSULTANT shunt with unremarkable appearance. 2. 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 Skull 1 view DX EXAM: XR SKULL 1 VIEW 07/12/2016 [facility] DATE: 07/12/2016 7:03 AM [facility] INDICATION: Headache(s) COMPARISON: None TECHNIQUE: AP radiographs of the skull with 2 images DISCUSSION: A delta valve shunt catheter is present with the tip of the delta aligned between the 2 radiopaque markers. The visualized portions of the catheter appear intact. IMPRESSION: Delta valve in place Brain wo contrast CT EXAM: CT HEAD WITHOUT CONTRAST 07/12/2016 [facility] DATE: 07/12/[address] [facility] Center INDICATION: 21 years old Female patient with history of PERFORMANCE TEST CONSULTANT shunt placement, now complaining of headache. TECHNIQUE: Multiple axial images were obtained through the head from vertex to the skull base. Axial bone algorithm reconstruction images are provided. COMPARISON: Prior outside hospital CT Scan of the head dated 07/11/2016 DISCUSSION: Again identified is a right parietal approach PERFORMANCE TEST CONSULTANT shunt catheter with distal tip lies within [...] adverse change. 2. Stable right parietal approach PERFORMANCE TEST CONSULTANT shunt catheter with adequately decompressed ventricular system. 3. 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 Chest 1view DX EXAM: XR CHEST 1 VIEW 07/11/2016 [facility] DATE: 07/11/2016 2230 hours Center INDICATION: Mass COMPARISON: Chest radiograph 07/11/2016 TECHNIQUE: AP chest FINDINGS: Lines and tubes: Abandoned and calcified discontinuous PERFORMANCE TEST CONSULTANT shunt tubing is redemonstrated over the right lower neck and anterior chest, coursing over the upper abdomen. Additional PERFORMANCE TEST CONSULTANT shunt tubing is seen over the right [...] No acute cardiopulmonary abnormality. 2. Partially visualized PERFORMANCE TEST CONSULTANT shunt tubing as discussed above. Consultation Notes No Data Provided for This Section Discharge Summaries No Data Provided for This Section History and Physicals No Data Provided for This Section Vital Signs Vital Sign Value Date Comments Source Respitory Rate 16 07/16/2016 [facility] Systolic (mm Hg) 134 07/16/2016 [facility] Diastolic (mm Hg) 63 07/16/2016 [facility] Temperature Oral (F) 98.2 F 07/16/2016 [facility] Temperature Oral (F) 98.6 F 07/16/2016 [facility] Respitory Rate 14 07/16/2016 [facility] Diastolic (mm Hg) 81 07/16/2016 [facility] Systolic (mm Hg) 131 07/16/2016 [facility] Weight 84.545 07/16/2016 [facility] Respitory Rate 20 07/16/2016 [facility] Heart Rate 110 07/16/2016 [facility] Temperature Oral (F) 98.8 F 07/16/2016 [facility] BMI Calculated 35.22 07/16/2016 [facility] Height 154.94 cm 07/16/2016 [facility] Systolic (mm Hg) 126 07/16/2016 [facility] Diastolic (mm Hg) 87 07/16/2016 [facility] Respitory Rate 12 07/14/2016 [facility] Temperature Oral (F) 97.9 F 07/14/2016 [facility] Systolic (mm Hg) 111 07/14/2016 [facility] Diastolic (mm Hg) 72 07/14/2016 [facility] Respitory Rate 16 07/14/2016 [facility] Systolic (mm Hg) 117 07/14/2016 [facility] Diastolic (mm Hg) 79 07/14/2016 [facility] Respitory Rate 13 07/14/2016 [facility] Systolic (mm Hg) 110 07/14/2016 [facility] Diastolic (mm Hg) 61 07/14/2016 [facility] Heart Rate 84 07/14/2016 [facility] Heart Rate 75 07/14/2016 [facility] Heart Rate 81 07/14/2016 [facility] Temperature Oral (F) 98.0 F 07/13/2016 [facility] Temperature Oral (F) 98.1 F 07/13/2016 [facility] Weight 84.545 07/12/2016 [facility] Weight 84.545 07/12/2016 [facility] Height 152.4 cm 07/12/2016 [facility] BMI Calculated 36.4 07/12/2016 [facility] Encounters Location Location Encounter Encounter Reason Attending ADM DC Status Source Details Type Number For Provider Date Date Visit [facility] [id number] [place] 07/12 07/14 [facility] Brianne /2015 [facility] Emergency [id number] [place] 07/16 07/16 [facility] Juliet /2015 [facility] Procedures Procedure Code Date Perfomer Comments Source Creation of PERFORMANCE TEST CONSULTANT [id number] [facility] Assessment and Plan Assessment and Plan Date Source Extracted from:Title: Neurology consult note 07/14/2016 [facility] Author: Keiko Del Rosario MD Date: 07/13/16 General Neurology Consult Referring physician (name/service): Neurosurgery Referring team contact number: Time of consult: 1700 Consulting attending: Dr Mason Reason for consult: [...] was few months ago , her last PERFORMANCE TEST CONSULTANT shunt revision was 10 years ago. 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 neurology consulted for se izure evaluation. On exam has no visual field defect , mild LE weakness BL. Patient was evalauted with ophthalmology , neurosurgery also is evaluating for headache cause which can be due to PERFORMANCE TEST CONSULTANT shunt mal function , although no ventriculomegaly for now but will repeat CT in AM Plan: Regarding seizure standpoaint, patient does not look like to have seizure in this episode. but it is worthed to do routine EEG. HEadache seems to be due to PERFORMANCE TEST CONSULTANT shunt malfunction , managed per neurosurgery team Neurology will follow - We recommend the patient be admitted for observation under neurosurgery The case was discussed with the Neurology Consult attending ___Marlon . Thank you for this interesting consult, the neurology consult team will continue to follow with you. Please page [phone] should you have any queries or concerns. 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 She has been diagnosed previously with migraine and seizures (was o n depakote, allergic to Lamictal). Patient has a fixed belief of "cryptic " (according to her it means, undetectable preganacy , which can last from 1-5years, currently she is in 73rd week) . For the reason of her crytpic , she possibly stopped the AEDs by herself. She has/had an allergy to Lamictal. Vitals and Temp: [...] continue to follow with you. Please page [phone] should you have any queries or concerns. ---- Dwight Metcalf MD, MPH. PGY-1 [facility] Consult Service 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 Danyel Schneider MD Election Watcher of Neurology. Pager:[phone] Plan of Care No Data Provided for This Section Social History Social History Date Source Social History TypeResponse 07/16/2016 [facility] Smoking Status Reg Smoking Cessation Counseling No; Current every day smoker; Type: Cigarettes ; Ready to change: No; Concerns about tobacco use in household: No; Exposure to Tobacco Smoke None; Cigarette Smoking Last 365 Days Yes Social History TypeResponse 07/16/2016 [facility] Smoking Status Reg Smoking Cessation Counseling No; Current every day smoker; Type: Cigarettes ; Ready to change: No; Concerns about tobacco use in household: No; Exposure to Tobacco Smoke None; Cigarette Smoking Last 365 Days Yes Family History No Data Provided for This Section Advance Directives No Data Provided for This Section Functional Status No Data Provided for This Section
[2019-04-29] MEDS ORDERED: NA CHLORIDE 0.9% 1,000 ML ONE (23:13)
[2019-04-29] MEDS ORDERED: LORazepam 2 MG/ML VIAL ONE (23:13)
[2019-04-29 23:20] LABS: Absolute Lymphocytes (CBC) 1.7 K/uL (0.7-4.9); Basophils % 0.9 % (0-1.3); Hematocrit 39.6 % (36.0-45.0); Lymphocytes % 17.7 % (15.3-44.8); MPV 8.8 fL (7.6-11.3); RBC Red Blood Cell Count 4.66 M/uL (3.86-4.86)
[2019-04-29 23:28] LABS: Urine Blood TRACE (NEG); Urine Glucose NEGATIVE (NEG); Urine Protein NEGATIVE (NEG); Urine Specific Gravity 1.025 (1.005-1.030)
[2019-04-29 23:41] LABS: Barbiturates NEGATIVE (NEGATIVE); Benzodiazepines NEGATIVE (NEGATIVE); Cocaine NEGATIVE (NEGATIVE); METHAMPHETAM NEGATIVE (NEGATIVE); Methadone NEGATIVE (NEGATIVE); Opiates NEGATIVE (NEGATIVE); Phencyclidine NEGATIVE (NEGATIVE); THC Cannibis POSITIVE (NEGATIVE)
[2019-04-29 23:49] LABS: ALT/SGPT 27 U/L (12-78); AST/SGOT 16 U/L (15-37); Albumin 3.7 g/dL (3.4-5.0); Alkaline Phosphatase 80 U/L (45-117); BUN Blood Urea Nitrogen 9 mg/dL (7-18); Bicarbonate 24 mmol/L (21-32); Bilirubin Direct < 0.1 mg/dL (0-0.2); Bilirubin Total 0.2 mg/dL (0.2-1.0); Glucose Level 95 mg/dL (74-106); Lipase 100 U/L (73-393); Magnesium 1.9 mg/dL (1.8-2.4); Potassium 3.6 mmol/L (3.5-5.1); Protein, Total 7.5 g/dL (6.4-8.2); Sodium Level 145 mmol/L (136-145); Troponin (Emerg Dept Use Only) < 0.02 ng/mL (0.0-0.045)
--- NOTE | 2019-04-30 00:37 | ER ---
Nurse's Notes [facility] Name: Shanna Estrella Age: 24 yrs Sex: Female : 1995 Arrival Date: 04/29/2019 Time: 22:26 Bed 19 Private MD: Diagnosis: Hyperventilation;Anxiety disorder, unspecified;Other chest pain-non cardiac Presentation: 04/29 22:05 Method Of Arrival: EMS: [facility] 22:05 Presenting complaint: Patient states: that she is having anxiety, hyperventilating, fc chest pain and her hands are cramping. Hx of seizures - last one 2 days ago. Now having pain to right side, chest and both hands. Transition of care: patient was not received from another setting of care. Onset of symptoms was April 29, 2019. Risk Assessment: Do you want to hurt yourself or someone else? Patient reports no desire to harm self or others. Initial Sepsis Screen: Does the patient meet any 2 criteria? HR > 90 bpm. Yes Does the patient have a suspected source of infection? No. Patient's initial sepsis screen is negative. Care prior to arrival: IV initiated. 22 GA, in the right antecubital area. 22:05 Acuity: ELI 3 fc Historical: - Allergies: 22:37 Amoxicillin; fc 22:37 lamotrigine; fc 22:37 PENICILLINS; fc 22:37 Lamictal; fc 22:37 Tape; fc - PMHx: 22:37 Bronchitis; Depression; chiari malformation; epilepsy; Pneumonia; hydrocephaly; PTSD; fc Anxiety; - PSHx: 22:37 V P Shunt; fc - Immunization history:: Last tetanus immunization: up to date. - Social history:: Smoking status: Patient uses tobacco products, smokes one-half pack cigarettes per day, Patient uses street drugs, marijuana, Patient/guardian denies using alcohol. - Ebola Screening: : Patient negative for fever greater than or equal to 101.5 degrees Fahrenheit, and additional compatible Ebola Virus Disease symptoms Patient denies exposure to infectious person Patient denies travel to an Ebola-affected area in the 21 days before illness onset. - Family history:: not pertinent. Screenin:05 Abuse screen: Denies threats or abuse. Nutritional screening: No deficits noted. fc Tuberculosis screening: No symptoms or risk factors identified. Fall Risk None identified. Assessment: 22:30 Pain: Complains of pain in right chest Pain radiates to r flank Pain currently is 8 out cr4 of 10 on a pain scale. at worst was 8 out of 10 on a pain scale. Quality of pain is described as sharp, shooting, Pain began 30 min ago. Is intermittent, Aggravated by increased activity. Neuro: Level of Consciousness is awake, alert, obeys commands, Oriented to Appropriate for age Junior Sales Representative are equal bilaterally Moves all extremities. Speech is normal, Facial symmetry appears normal, Pupils are PERRLA. Cardiovascular: Reports chest pain, Denies fatigue, lightheadedness, nausea, palpitations, shortness of breath, syncope, Heart tones S1 S2 Capillary refill < 3 seconds Pulses are all present. Respiratory: Respiratory effort is labored, Respiratory pattern is regular, symmetrical, Breath sounds are clear. GI: No deficits noted. : No deficits noted. EENT: No deficits noted. Derm: Rash noted that is red, on under and in between breast. Musculoskeletal: Range of motion: limited in alphonse. fingers. 22:30 General: Appears uncomfortable, obese, Behavior is cooperative, anxious. cr4 22:30 Musculoskeletal: Denies. cr4 04/30 00:14 Reassessment: Patient and/or family updated on plan of care and expected duration. Pain cr4 level reassessed. Patient states feeling better. Patient states symptoms have improved. 01:00 Reassessment: Patient and/or family updated on plan of care and expected duration. Pain cr4 level reassessed. Patient is alert, oriented x 3, equal unlabored respirations, skin warm/dry/pink. Patient states feeling better. Patient states symptoms have improved. Vital Signs: 04/29 22:05 BP 122 / 94; Pulse 103; Resp 18; Temp 98.8(O); Pulse Ox 100% on R/A; Weight 81.65 kg fc (R); Height 5 ft. 4 in. (162.56 cm) (R); Pain 9/10; 22:45 BP 123 / 81; Pulse 91; Resp 15; Pulse Ox 100% ; Pain 2/10; cr4 04/30 00:18 BP 132 / 84; Pulse 98; Resp 20; Temp 99; Pulse Ox 99% ; Pain 3/10; cr4 01:00 BP 118 / 81; Pulse 98; Resp 95; Pulse Ox 98% ; Pain 2/10; cr4 02:18 BP 126 / 94; Pulse 91; Resp 18; Temp 99.0; Pulse Ox 98% ; Pain 2/10; cr4 04/29 22:05 Body Mass Index 30.90 (81.65 kg, 162.56 cm) ED Course: 04/29 22:05 Arm band placed on Patient placed in an exam room, on a stretcher. fc 22:05 Patient has correct armband on for positive identification. Bed in low position. Call fc light in reach. Side rails up X2. ekg monitor tech on. Pulse ox on. NIBP on. 22:05 No provider procedures requiring assistance completed. Maintain EMS IV. Dressing fc intact. Good blood return noted. Site clean \T\ dry. Gauge \T\ site: 22 gauge to right a/c. 22:26 Patient arrived in ED. jb4 22:34 Triage completed. fc 22:35 Francisco Becerra MD is Attending Physician. rico 23:04 XRAY Chest (1 view) In Process Unspecified. EDMS 04/30 00:26 Notified ED physician of a critical lab result(s). Ddimer of 815. cr4 01:29 CT Chest For PE Angio In Process Unspecified. EDMS 02:20 IV discontinued, intact, bleeding controlled, No redness/swelling at site. cr4 Administered Medications: 04/29 23:18 Drug: NS 0.9% 1000 ml Route: IV; Rate: 1 bolus; Site: right wrist; cr4 04/30 00:00 Follow up: IV Status: Completed infusion; IV Intake: 1000ml cr4 04/29 23:18 Drug: Ativan 1 mg Route: IVP; Site: left wrist; cr4 04/30 00:15 Follow up: Response: No adverse reaction; Pain is decreased; Anxiety decreased cr4 Intake: 00:00 IV: 1000ml; Total: 1000ml. cr4 Outcome: 00:36 Discharge ordered by . rico 02:20 Discharged to home ambulatory, with family. cr4 02:20 Condition: stable 02:20 Discharge instructions given to patient, family, Instructed on discharge instructions, follow up and referral plans. medication usage, Demonstrated understanding of instructions, follow-up care, medications, Prescriptions given X 1. 02:22 Patient left the ED. cr4 Signatures: Dispatcher [employer] Francisco Eagle MD MD cha Chretien, Felicia, RN RN fc Belkys Doss RN RN cr4 Eddie Cotton RN RN jb4 Corrections: (The following items were deleted from the chart) 00:11 04/29 23:47 General: Appears uncomfortable, obese, Behavior is cooperative, anxious, [id number]
--- NOTE | 2019-04-30 00:38 | EDPHYS ---
Physician Documentation [facility] Name: Shanna Estrella Age: 24 yrs Sex: Female : 1995 Arrival Date: 04/29/2019 Time: 22:26 Bed 19 Private MD: ED Physician Francisco Becerra HPI: 04/29 22:39 This 24 yrs old Female presents to ER via EMS with complaints of chest pain, rico anxiety and hyperventilation. 22:39 The patient or guardian reports chest pain that is located primarily in the anterior rico chest wall, right. The patient presents with a history of heart racing. Context: The symptoms occur at rest, with anxiety. Onset: The symptoms/episode began/occurred just prior to arrival. Modifying factors: The symptoms are aggravated by anxiety, The symptoms are alleviated by lying down, remaining still. Associated signs and symptoms: Pertinent positives: anxiety, chest pain, cough. Historical: - Allergies: 22:37 Amoxicillin; fc 22:37 lamotrigine; fc 22:37 PENICILLINS; fc 22:37 Lamictal; fc 22:37 Tape; fc - PMHx: 22:37 Bronchitis; Depression; chiari malformation; epilepsy; Pneumonia; hydrocephaly; PTSD; fc Anxiety; - PSHx: 22:37 V P Shunt; fc - Immunization history:: Last tetanus immunization: up to date. - Social history:: Smoking status: Patient uses tobacco products, smokes one-half pack cigarettes per day, Patient uses street drugs, marijuana, Patient/guardian denies using alcohol. - Ebola Screening: : Patient negative for fever greater than or equal to 101.5 degrees Fahrenheit, and additional compatible Ebola Virus Disease symptoms Patient denies exposure to infectious person Patient denies travel to an Ebola-affected area in the 21 days before illness onset. - Family history:: not pertinent. ROS: 22:39 Constitutional: Negative for fever, chills, and weight loss, Eyes: Negative for injury, rico pain, redness, and discharge, ENT: Negative for injury, pain, and discharge, Neck: Negative for injury, pain, and swelling, Cardiovascular: Negative for chest pain, palpitations, and edema, Abdomen/GI: Negative for abdominal pain, nausea, vomiting, diarrhea, and constipation, Back: Negative for injury and pain, : Negative for injury, bleeding, discharge, and swelling, MS/Extremity: Negative for injury and deformity, Skin: Negative for injury, rash, and discoloration, Neuro: Negative for headache, weakness, numbness, tingling, and seizure, Psych: Negative for depression, anxiety, suicide ideation, homicidal ideation, and hallucinations, Allergy/Immunology: Negative for hives, rash, and allergies, Endocrine: Negative for neck swelling, polydipsia, polyuria, polyphagia, and marked weight changes, Hematologic/Lymphatic: Negative for swollen nodes, abnormal bleeding, and unusual bruising. 22:39 Respiratory: Positive for cough, pleurisy, of the right lateral posterior chest, right lateral anterior chest and right breast, shortness of breath, at rest. Exam: 22:39 Constitutional: This is a well developed, well nourished patient who is awake, alert, rico and in no acute distress. Head/Face: Normocephalic, atraumatic. Eyes: Pupils equal round and reactive to light, extra-ocular motions intact. Lids and lashes normal. Conjunctiva and sclera are non-icteric and not injected. Cornea within normal limits. Periorbital areas with no swelling, redness, or edema. ENT: Nares patent. No nasal discharge, no septal abnormalities noted. Tympanic membranes are normal and external auditory canals are clear. Oropharynx with no redness, swelling, or masses, exudates, or evidence of obstruction, uvula midline. Mucous membranes moist. Neck: Trachea midline, no thyromegaly or masses palpated, and no cervical lymphadenopathy. Supple, full range of motion without nuchal rigidity, or vertebral point tenderness. No Meningismus. Chest/axilla: Normal chest wall appearance and motion. Nontender with no deformity. No lesions are appreciated. Respiratory: Lungs have equal breath sounds bilaterally, clear to auscultation and percussion. No rales, rhonchi or wheezes noted. No increased work of breathing, no retractions or nasal flaring. Abdomen/GI: Soft, non-tender, with normal bowel sounds. No distension or tympany. No guarding or rebound. No evidence of tenderness throughout. Back: No spinal tenderness. No costovertebral tenderness. Full range of motion. Skin: Warm, dry with normal turgor. Normal color with no rashes, no lesions, and no evidence of cellulitis. MS/ Extremity: Pulses equal, no cyanosis. Neurovascular intact. Full, normal range of motion. Neuro: Awake and alert, GCS 15, oriented to person, place, time, and situation. Cranial nerves II-XII grossly intact. Motor strength 5/5 in all extremities. Sensory grossly intact. Cerebellar exam normal. Normal gait. Psych: Awake, alert, with orientation to person, place and time. Behavior, mood, and affect are within normal limits. 22:39 Cardiovascular: Rate: tachycardic, Rhythm: regular, Pulses: Pulses are 4+ in bilateral radial, brachial, femoral, popliteal, posterior tibial and and dorsalis pedis arteries.. Heart sounds: normal, Edema: is not appreciated, JVD: is not appreciated. 04/30 00:36 Musculoskeletal/extremity: DVT Exam: No signs of deep vein thrombosis. no pain, no rico swelling, no tenderness, negative Homans' sign noted on exam, no appreciated bluish discoloration, no erythema, no increased warmth. Vital Signs: 04/29 22:05 BP 122 / 94; Pulse 103; Resp 18; Temp 98.8(O); Pulse Ox 100% on R/A; Weight 81.65 kg fc (R); Height 5 ft. 4 in. (162.56 cm) (R); Pain 9/10; 22:45 BP 123 / 81; Pulse 91; Resp 15; Pulse Ox 100% ; Pain 2/10; cr4 04/30 00:18 BP 132 / 84; Pulse 98; Resp 20; Temp 99; Pulse Ox 99% ; Pain 3/10; cr4 01:00 BP 118 / 81; Pulse 98; Resp 95; Pulse Ox 98% ; Pain 2/10; cr4 02:18 BP 126 / 94; Pulse 91; Resp 18; Temp 99.0; Pulse Ox 98% ; Pain 2/10; cr4 04/29 22:05 Body Mass Index 30.90 (81.65 kg, 162.56 cm) fc MDM: 04/29 22:35 Patient medically screened. [facility] 22:39 Data reviewed: vital signs, nurses notes, lab test result(s), EKG, radiologic studies, [facility] CT scan, plain films. 04/29 22:38 Order name: Basic Metabolic Panel [facility] 04/29 22:38 Order name: CBC with Diff [facility] 04/29 22:38 Order name: LFT's; Complete Time: 00:03 [facility] 04/29 22:38 Order name: Magnesium; Complete Time: 00:03 [facility] 04/29 22:38 Order name: Troponin (emerg Dept Use Only); Complete Time: 00:03 [facility] 04/29 22:38 Order name: Lipase; Complete Time: 00:03 [facility] 04/29 22:38 Order name: XRAY Chest (1 view) [facility] 04/29 22:38 Order name: D-Dimer; Complete Time: 23:38 [facility] 04/29 22:38 Order name: Urine Culture [facility] 04/29 22:38 Order name: UDS; Complete Time: 00:03 [facility] 04/29 22:40 Order name: Basic Metabolic Panel; Complete Time: 00:03 [facility] 04/29 22:40 Order name: CBC with Automated Diff; Complete Time: 23:38 [facility] 04/29 23:25 Order name: Urine Dipstick--Ancillary (enter results); Complete Time: 23:38 [facility] 04/29 23:25 Order name: Urine --Ancillary (enter results); Complete Time: 23:38 [facility] 04/29 22:38 Order name: EKG; Complete Time: 22:40 [facility] 04/29 22:38 Order name: Cardiac monitoring; Complete Time: 00:17 [facility] 04/29 22:38 Order name: EKG - Nurse/Tech; Complete Time: 00:17 [facility] 04/29 22:38 Order name: IV Saline Lock; Complete Time: 00:17 [facility] 04/29 22:38 Order name: Labs collected and sent; Complete Time: 00:17 [facility] 04/29 22:38 Order name: O2 Per Protocol; Complete Time: 00:17 [facility] 04/29 22:38 Order name: O2 Sat Monitoring; Complete Time: 00:17 [facility] 04/29 22:38 Order name: Urine Dipstick-Ancillary (obtain specimen); Complete Time: 00:16 [facility] 04/29 22:38 Order name: Urine Test (obtain specimen) [facility] 04/30 00:25 Order name: CT Chest For PE Angio rico Administered Medications: 23:18 Drug: NS 0.9% 1000 ml Route: IV; Rate: 1 bolus; Site: right wrist; cr4 04/30 00:00 Follow up: IV Status: Completed infusion; IV Intake: 1000ml cr4 04/29 23:18 Drug: Ativan 1 mg Route: IVP; Site: left wrist; cr4 04/30 00:15 Follow up: Response: No adverse reaction; Pain is decreased; Anxiety decreased cr4 Disposition: 04/30/19 00:36 Discharged to Home. Impression: Hyperventilation, Anxiety disorder, unspecified, Other chest pain - non cardiac. - Condition is Stable. - Discharge Instructions: Panic Attacks, Hyperventilation, Panic Attacks, [id number], Generalized Anxiety Disorder. - Prescriptions for Xanax 0.5 mg Oral Tablet - take 1 tablet by ORAL route every 8 hours As needed; 20 tablet. - Medication Reconciliation Form, Thank You Letter, Antibiotic Education, Prescription Opioid Use form. - Follow up: Private Physician; When: 2 - 3 days; Reason: Recheck today's complaints, Continuance of care, Re-evaluation by your physician. - Problem is new. - Symptoms have improved. Signatures: Dispatcher [employer] EDTN Francisco Becerra MD MD cha Chretien, Felicia, RN RN Belkys Doss RN RN cr4 Corrections: (The following items were deleted from the chart) 02:22 00:36 04/30/2019 00:36 Discharged to Home. Impression: Hyperventilation; Anxiety cr4 disorder, unspecified; Other chest pain - non cardiac. Condition is Stable. Discharge Instructions: Panic Attacks, Hyperventilation, Panic Attacks, [id number], Generalized Anxiety Disorder. Prescriptions for Xanax 0.5 mg Oral Tablet - take 1 tablet by ORAL route every 8 hours As needed; 20 tablet. and Forms are Medication Reconciliation Form, Thank You Letter, Antibiotic Education, Prescription Opioid Use. Follow up: Private Physician; When: 2 - 3 days; Reason: Recheck today's complaints, Continuance of care, Re-evaluation by your physician. Problem is new. Symptoms have improved. rico
[2019-04-30 04:21] VITALS: O2SAT 98
[2019-04-30 04:23] VITALS: BP 126/94; TEMP 99
--- NOTE | 2019-04-30 08:49 | RAD REPORT ---
EXAM DESCRIPTION: Renato Single View04/29/2019 11:05 pm CLINICAL HISTORY: cough COMPARISON: 08/2018 FINDINGS: The lungs appear clear of acute infiltrate. The heart is normal size IMPRESSION: No acute abnormalities displayed
--- NOTE | 2019-05-01 18:26 | EKG ---
Test Date: 2019-04-29 Test Time: 22:43:00 Suction Drum Drier Operator: BRITT MEASUREMENT RESULTS: Intervals: Rate: 99 AL: 122 QRSD: 76 QT: 336 QTc: 431 Ethan: P: 47 AL: 122 QRS: 41 T: 51 INTERPRETIVE STATEMENTS: Normal sinus rhythm with sinus arrhythmia Normal ECG Compared to ECG 01/15/2018 06:33:00 No significant changes Electronically Signed On 05-01-19 18:23:10 CDT by Kody Little
--- NOTE | 2019-05-02 11:28 | RAD REPORT ---
EXAM DESCRIPTION: CT - Chest For Pe Angio - 04/30/2019 6:57 am CLINICAL HISTORY: The patient is 24 years old and is Female; CHEST PAIN TECHNIQUE: Axial computed tomographic angiography images of the chest with intravenous contrast. S agittal and coronal reformatted images were created and reviewed. This CT exam was performed using one or more of the following dose reduction techniques: automated exposure control, adjustment of t he mA and/or kV according to patient size, and/or use of iterative reconstruction technique. MIP reconstructed images were created and reviewed. COMPARISON: No relevant prior studies available. FINDINGS: PULMONARY ARTERIES: Unremarkable. No pulmonary embolism. AORTA: No acute findings. No thoracic aortic aneurysm. LUNGS: Unremarkable. No mass. No consolidation. PLEURAL SPACE: Unremarkable. No significant effusion. No pneumothorax. HEART: Unremarkable. No cardiomegaly. No significant pericardial effusion. No evidence of RV dysfunction. BONES/JOINTS: No acute fracture. No dislocation. SOFT TISSUES: Unremarkable. LYMPH NODES: Unremarkable. No enlarged lymph nodes. IMPRESSION: Normal chest CTA. No pulmonary embolism. Electronically signed by: Cari Webber MD 04/30/2019 1:50 AM CDT Due to temporary technical issues with the PACS/Fluency reporting system, reports are being signed by the in house radiologist as a courtesy to ensure prompt reporting. The interpreting radiologist is f josely responsible for the content of the report.
== END 2019-04-30 02:22 | disposition home or self-care (01) ==
LOC: ER 22:11
DX: R06.4 Hyperventilation (principal); F41.9 Anxiety disorder, unspecified; F17.210 Nicotine dependence, cigarettes, uncomplicated; Z88.0 Allergy status to penicillin; Z88.1 Allergy status to other antibiotic agents; Z88.8 Allergy status to other drugs, medicaments and biological substances; Z98.2 Presence of cerebrospinal fluid drainage device; Z91.048 Other nonmedicinal substance allergy status
CPT/HCPCS: 36415; 71045; 71275; 80048; 80076; 80307; 81003; 81025; 83690; 83735; 84484; 85025; 85379; 87086; 87088; 93005; 96361; 96374; 99284; J7030; Q9967

== ENCOUNTER 2019-06-07 22:10 | Emergency (ER) | payer SELFPAY ==
[2019-06-07] MEDS ORDERED: DIAZEPAM 2 MG TABLET ONE (23:10)
[2019-06-07] MEDS ORDERED: ACETAMINOPHEN 500 MG TAB ONE (23:11)
[2019-06-07] MEDS ORDERED: PROMETHAZINE 25 MG TABLET ONE (23:11)
--- NOTE | 2019-06-07 23:59 | ER ---
Nurse's Notes [facility] Name: Shanna Estrella Age: 24 yrs Sex: Female : 1995 Arrival Date: 06/07/2019 Time: 22:15 Bed 23 Private MD: Diagnosis: Recurrent seizures Presentation: 06/07 22:27 Presenting complaint: Patient states: she has a hx of seizures and had a seizure today aa1 and when she did she fell out of a chair and hit her head on a carpeted floor. Reports she was taking Keppra for her seizures but stopped taking it awhile back bc it caused her to have status epilepticus. States, "I don't normally come here for my seizures because they always try to give me Keppra and I refuse to take Keppra but this time my headache won't go away so I just wanna make sure I'm not having a concussion.". Transition of care: patient was not received from another setting of care. Onset of symptoms was June 07, 2019 at 21:00. Risk Assessment: Do you want to hurt yourself or someone else? Patient reports no desire to harm self or others. Initial Sepsis Screen: Does the patient meet any 2 criteria? HR > 90 bpm. Does the patient have a suspected source of infection? No. Patient's initial sepsis screen is negative. Care prior to arrival: None. 22:27 Method Of Arrival: Ambulatory aa1 22:27 Acuity: ELI 3 aa1 Triage Assessment: 22:30 General: Appears in no apparent distress. comfortable, Behavior is calm, cooperative, aa1 appropriate for age. Historical: - Allergies: 22:30 Amoxicillin; aa1 22:30 Lamictal; aa1 22:30 lamotrigine; aa1 22:30 PENICILLINS; aa1 22:30 Tape; aa1 - Home Meds: 22:30 None [Active]; aa1 - PMHx: 22:30 Anxiety; Bronchitis; chiari malformation; Depression; epilepsy; hydrocephaly; aa1 Pneumonia; PTSD; - PSHx: 22:30 V P Shunt; Brain Surgery; aa1 - Immunization history:: Flu vaccine is not up to date. - Social history:: Smoking status: Patient uses tobacco products, smokes one pack cigarettes per day. - Ebola Screening: : No symptoms or risks identified at this time. Screenin:46 Abuse screen: Denies threats or abuse. Nutritional screening: No deficits noted. la1 Tuberculosis screening: No symptoms or risk factors identified. Fall Risk None identified. Assessment: 22:45 General: Appears in no apparent distress. Behavior is calm, cooperative. Pain: la1 Complains of pain in headache. Neuro: Level of Consciousness is awake, alert, obeys commands, Oriented to person, place, time, situation. Neuro: Gait is steady, Speech is normal, Facial symmetry appears normal, Pupils are PERRLA. Cardiovascular: Capillary refill < 3 seconds Patient's skin is warm and dry. Respiratory: Airway is patent Respiratory effort is even, unlabored, Respiratory pattern is regular, symmetrical. GI: No signs and/or symptoms were reported involving the gastrointestinal system. : No signs and/or symptoms were reported regarding the genitourinary system. 06/08 00:33 Reassessment: Patient appears in no apparent distress at this time. Patient and/or rv family updated on plan of care and expected duration. Pain level reassessed. Patient is alert, oriented x 3, equal unlabored respirations, skin warm/dry/pink. General: Appears in no apparent distress. comfortable, Behavior is calm, cooperative. Pain: Denies pain. Vital Signs: 06/07 22:30 BP 124 / 82; Pulse 113; Resp 18; Temp 98.7; Pulse Ox 100% on R/A; Weight 86.18 kg; aa1 Height 5 ft. 3 in. (160.02 cm) (R); Pain 10/; 23:30 BP 111 / 93; Pulse 99; Resp 18; Pulse Ox 99% on R/A; rv 06/08 00:30 BP 105 / 89; Pulse 96; Resp 16; Pulse Ox 99% on R/A; rv 06/07 22:30 Body Mass Index 33.66 (86.18 kg, 160.02 cm) aa1 Leonore Coma Score: 06/07 22:30 Eye Response: spontaneous(4). Verbal Response: oriented(5). Motor Response: obeys aa1 commands(6). Total: 15. ED Course: 22:15 Patient arrived in ED. cf2 22:29 Triage completed. aa1 22:30 Arm band placed on right wrist. Patient placed in an exam room, on a stretcher. aa1 22:32 Zabrina Soto FNP-C is [facility]. snw 22:32 Fritz Reid MD is Attending Physician. snw 22:45 Sonu Ng, RN is Primary Nurse. la1 22:46 Patient has correct armband on for positive identification. la1 22:46 Seizure precautions initiated. la1 23:31 CT Head C Spine In Process Unspecified. EDMS 23:58 German Figueroa MD is Referral Physician. snw 06/08 00:02 CT completed. Patient tolerated procedure well. Patient moved to CT via stretcher. Patient moved back from CT. 00:33 No provider procedures requiring assistance completed. Patient did not have IV access rv during this emergency room visit. Administered Medications: 06/07 23:21 Drug: Phenergan 25 mg Route: PO; la1 06/08 00:30 Follow up: Response: No adverse reaction rv 06/07 23:21 Drug: Tylenol 500 mg Route: PO; la1 06/08 00:31 Follow up: Response: No adverse reaction rv 06/07 23:21 Drug: Valium 2 mg Route: PO; la1 06/08 00:32 Follow up: Response: No adverse reaction rv 00:30 Drug: Depakote 500 mg Route: PO; rv 00:30 Follow up: Response: Medication administered at discharge. rv Outcome: 06/07 23:59 Discharge ordered by . snw 06/08 00:33 Discharged to home ambulatory, with family. rv Condition: improved Discharge instructions given to patient, Instructed on discharge instructions, follow up and referral plans. medication usage, Demonstrated understanding of instructions, follow-up care, medications, Prescriptions given X 2. 00:34 Patient left the ED. rv Signatures: Dispatcher [employer] EDAL Mirtha Rendon RN RN aa1 Zabrina Soto FNP-C CERTIFIED MEDICAL [employer]ER[facility] Clarke Bowles Sonu Ng, RN RN la1 Duc Pa RN RN rv Lars Wolf 2
--- NOTE | 2019-06-07 23:59 | EDPHYS ---
Physician Documentation [facility] Name: Shanna Estrella Age: 24 yrs Sex: Female : 1995 Arrival Date: 06/07/2019 Time: 22:15 Bed 23 Private MD: ED Physician Fritz Reid HPI: 06/07 23:15 This 24 yrs old Female presents to ER via Ambulatory with complaints of snw Seizure, Fall Injury, Headache. 23:15 The patient presents after having a single isolated seizure. Character of seizure(s): snw Loss of consciousness: the patient did not lose consciousness, Motor activity: generalized, Incontinence: none, Apnea: the patient did not experience apnea, Circulation: the patient did not experience evidence of pulse disturbance. Seizure onset: today. Seizure Hx: Cause: unknown, Seizure medications: pt refuses medications. Associated injury: The patient did not suffer any apparent associated injury. Current symptoms: Currently, the patient is not experiencing any symptoms, headache, that is moderate. The patient has experienced similar episodes in the past, chronically. It is unknown whether or not the patient has recently seen a physician. Pt awake, alert, oriented x 3. Pt states seizures are generally brought on by stress, lack of sleep, anxiety, etc.. Historical: - Allergies: 22:30 Amoxicillin; aa1 22:30 Lamictal; aa1 22:30 lamotrigine; aa1 22:30 PENICILLINS; aa1 22:30 Tape; aa1 - Home Meds: 22:30 None [Active]; aa1 - PMHx: 22:30 Anxiety; Bronchitis; chiari malformation; Depression; epilepsy; hydrocephaly; aa1 Pneumonia; PTSD; - PSHx: 22:30 V P Shunt; Brain Surgery; aa1 - Immunization history:: Flu vaccine is not up to date. - Social history:: Smoking status: Patient uses tobacco products, smokes one pack cigarettes per day. - Ebola Screening: : No symptoms or risks identified at this time. ROS: 23:15 Constitutional: Negative for fever, chills, and weight loss, Eyes: Negative for injury, snw pain, redness, and discharge, ENT: Negative for injury, pain, and discharge, Neck: Negative for injury, pain, and swelling, Cardiovascular: Negative for chest pain, palpitations, and edema, Respiratory: Negative for shortness of breath, cough, wheezing, and pleuritic chest pain, Abdomen/GI: Negative for abdominal pain, nausea, vomiting, diarrhea, and constipation, Back: Negative for injury and pain, : Negative for injury, bleeding, discharge, and swelling, MS/Extremity: Negative for injury and deformity, Skin: Negative for injury, rash, and discoloration, Psych: Negative for depression, anxiety, suicide ideation, homicidal ideation, and hallucinations. 23:15 Neuro: Positive for headache, seizure activity. Exam: 23:15 Head/Face: Normocephalic, atraumatic. Eyes: Pupils equal round and reactive to light, snw extra-ocular motions intact. Lids and lashes normal. Conjunctiva and sclera are non-icteric and not injected. Cornea within normal limits. Periorbital areas with no swelling, redness, or edema. ENT: Nares patent. No nasal discharge, no septal abnormalities noted. Tympanic membranes are normal and external auditory canals are clear. Oropharynx with no redness, swelling, or masses, exudates, or evidence of obstruction, uvula midline. Mucous membranes moist. Neck: Trachea midline, no thyromegaly or masses palpated, and no cervical lymphadenopathy. Supple, full range of motion without nuchal rigidity, or vertebral point tenderness. No Meningismus. Chest/axilla: Normal chest wall appearance and motion. Nontender with no deformity. No lesions are appreciated. Cardiovascular: Regular rate and rhythm with a normal S1 and S2. No gallops, murmurs, or rubs. Normal PMI, no JVD. No pulse deficits. Respiratory: Lungs have equal breath sounds bilaterally, clear to auscultation and percussion. No rales, rhonchi or wheezes noted. No increased work of breathing, no retractions or nasal flaring. Abdomen/GI: Soft, non-tender, with normal bowel sounds. No distension or tympany. No guarding or rebound. No evidence of tenderness throughout. Back: No spinal tenderness. No costovertebral tenderness. Full range of motion. Skin: Warm, dry with normal turgor. Normal color with no rashes, no lesions, and no evidence of cellulitis. MS/ Extremity: Pulses equal, no cyanosis. Neurovascular intact. Full, normal range of motion. Neuro: Awake and alert, GCS 15, oriented to person, place, time, and situation. Cranial nerves II-XII grossly intact. Motor strength 5/5 in all extremities. Sensory grossly intact. Cerebellar exam normal. Normal gait. Psych: Awake, alert, with orientation to person, place and time. Behavior, mood, and affect are within normal limits. 23:15 Constitutional: The patient appears alert, awake, obese, unkempt. Vital Signs: 22:30 BP 124 / 82; Pulse 113; Resp 18; Temp 98.7; Pulse Ox 100% on R/A; Weight 86.18 kg; aa1 Height 5 ft. 3 in. (160.02 cm) (R); Pain 10; 23:30 BP 111 / 93; Pulse 99; Resp 18; Pulse Ox 99% on R/A; rv 06/08 00:30 BP 105 / 89; Pulse 96; Resp 16; Pulse Ox 99% on R/A; rv 06/07 22:30 Body Mass Index 33.66 (86.18 kg, 160.02 cm) aa1 Kelli Coma Score: 06/07 22:30 Eye Response: spontaneous(4). Verbal Response: oriented(5). Motor Response: obeys aa1 commands(6). Total: 15. MDM: 22:44 Patient medically screened. snw 06/08 00:00 Data reviewed: vital signs, nurses notes. Data interpreted: Pulse oximetry: on room air snw is 100 %. Interpretation: normal. Counseling: I had a detailed discussion with the patient and/or guardian regarding: the historical points, exam findings, and any diagnostic results supporting the discharge/admit diagnosis, radiology results, the need for outpatient follow up, to return to the emergency department if symptoms worsen or persist or if there are any questions or concerns that arise at home. Special discussion: I have referred the patient to see his PCP for further evaluation of high blood pressure. Based on the patient's history, exam and DX evaluation, there is no indication for emergent intervention or inpatient TX. It is understood by the patient/guardian that if the SXs persist or worsen they need to return immediately for re-evaluation. Based on the history and exam findings, there is no indication for further emergent testing or inpatient evaluation. I discussed with the patient/guardian the need to see the neurologist for further evaluation of the symptoms. I discussed with the patient/guardian the need to see the primary care provider for further evaluation of the symptoms. 06/07 22:54 Order name: CT Head C Spine snw Administered Medications: 06/07 23:21 Drug: Phenergan 25 mg Route: PO; la1 06/08 00:30 Follow up: Response: No adverse reaction rv 06/07 23:21 Drug: Tylenol 500 mg Route: PO; la1 06/08 00:31 Follow up: Response: No adverse reaction rv 06/07 23:21 Drug: Valium 2 mg Route: PO; la1 06/08 00:32 Follow up: Response: No adverse reaction rv 00:30 Drug: Depakote 500 mg Route: PO; rv 00:30 Follow up: Response: Medication administered at discharge. rv Disposition: 02:35 Co-signature as Attending Physician, Fritz Reid MD I agree with the assessment and tw4 plan of care. Disposition: 06/07/19 23:59 Discharged to Home. Impression: Recurrent seizures. - Condition is Stable. - Discharge Instructions: Seizure, Adult, Rehydration, Adult. - Prescriptions for Depakote 500 mg Oral Tablet - take 1 tablet by ORAL route every 12 hours; 60 tablet. - Medication Reconciliation Form, Thank You Letter, Antibiotic Education, Prescription Opioid Use form. - Follow up: German Figueroa MD; When: 1 week; Reason: Recheck today's complaints, Continuance of care. Signatures: Dispatcher [employer] EDMirtha Wheeler RN RN aa1 Zabirna Soto, PAYAM-C LIBRARIAN HELPER-CsnSonu Hernandez RN RN la1 Fritz Reid MD MD tw4 Duc Pa RN RN rv Corrections: (The following items were deleted from the chart) 00:34 06/07 23:59 06/07/2019 23:59 Discharged to Home. Impression: Recurrent seizures. rv Condition is Stable. Forms are Medication Reconciliation Form, Thank You Letter, Antibiotic Education, Prescription Opioid Use. Follow up: German Figueroa; When: 1 week; Reason: Recheck today's complaints, Continuance of care. snw
[2019-06-08] MEDS ORDERED: DIVALPROEX DR 250 MG TAB PO ONE (00:25)
[2019-06-08 01:20] VITALS: TEMP 98.7
[2019-06-08 01:21] VITALS: O2SAT 99
[2019-06-08 01:23] VITALS: BP 105/89
--- NOTE | 2019-06-08 10:57 | RAD REPORT ---
EXAM DESCRIPTION: Head C Spine Mpr Wo Con - 06/08/2019 1:22 am CLINICAL HISTORY: The patient is 24 years old and is Female; SMASH INJURY TECHNIQUE: Axial computed tomography images of the head/brain and cervical spine without intravenous contrast. Sagittal and coronal reformatted images were created and reviewed. This CT exam was pe rformed using one or more of the following dose reduction techniques: automated exposure control, a djustment of the mA and/or kV according to patient size, and/or use of iterative reconstruction techn ique. 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 The dysmorphic configuration of the brain is again noted. Evidence of prior p osterior fossa decompression is noted. There is no intracranial hemorrhage, mass effect, or midline shift. No significant white matter disease. VENTRICLES: The configuration of the ventricles is stable. No hydrocephalus or transependymal fl ow. SKULL: No acute fracture. SINUSES: Unremarkable as visualized. No acute sinusitis. MASTOID AIR CELLS: Unremarkable as visualized. No mastoid effusion. VERTEBRAE: Incomplete fusion posterior arch of C1 is noted, congenital variant. The vertebral body heights and alignment are maintained. No acute fracture. DISCS/SPINAL CANAL/NEURAL FORAMINA: The intervertebral disc spaces are maintained. No spinal can al stenosis. SOFT TISSUES: The soft tissues are normal. LUNG APICES: The lung apices are clear. TUBES, LINES AND DEVICES: Redemonstration of the right parietal approach ventriculostomy cathete r is present with the tip ending near midline. IMPRESSION: 1. No acute intracranial findings. Chronic findings as detailed above. 2. No fracture or malalignment of the cervical spine. Electronically signed by: Cari Webber MD 06/07/2019 11:45 PM CDT Due to temporary technical issues with the PACS/Fluency reporting system, reports are being signed by the in house radiologist as a courtesy to ensure prompt reporting. The interpreting radiologist is f ully responsible for the content of the report.
== END 2019-06-08 00:34 | disposition home or self-care (01) ==
LOC: ER 22:10
DX: R56.9 Unspecified convulsions (principal); F17.210 Nicotine dependence, cigarettes, uncomplicated; Z88.0 Allergy status to penicillin; Z88.1 Allergy status to other antibiotic agents
CPT/HCPCS: 70450; 72125; 99284; Q0169

== ENCOUNTER 2019-08-26 20:29 | Emergency (ER) | payer SELFPAY ==
[2019-08-26 21:58] LABS: Absolute Lymphocytes (CBC) 1.8 K/uL (0.7-4.9); Basophils % 0.8 % (0-1.3); Hematocrit 41.5 % (36.0-45.0); Lymphocytes % 18.8 % (15.3-44.8); MPV 8.5 fL (7.6-11.3); RBC Red Blood Cell Count 4.78 M/uL (3.86-4.86)
[2019-08-26 22:14] LABS: BUN Blood Urea Nitrogen 10 mg/dL (7-18); Bicarbonate 23 mmol/L (21-32); Glucose Level 102 mg/dL (74-106); Potassium 3.4 mmol/L (3.5-5.1); Sodium Level 139 mmol/L (136-145); Troponin (Emerg Dept Use Only) < 0.02 ng/mL (0.0-0.045)
[2019-08-26] MEDS ORDERED: DIAZEPAM 2 MG TABLET ONE (22:22)
--- NOTE | 2019-08-26 22:48 | EDPHYS ---
Physician Documentation [facility] Name: Shanna Estrella Age: 24 yrs Sex: Female : 1995 Arrival Date: 08/26/2019 Time: 20:35 Bed 6 Private MD: ED Physician Peter Davila HPI: 08/26 21:02 This 24 yrs old Female presents to ER via EMS with complaints of Headache. pm1 21:02 The patient complains of pain to the generalized all over head. The patient describes pm1 the headache as aching, constant. Onset: The symptoms/episode began/occurred yesterday. Associated signs and symptoms: Pertinent positives: nausea, chest pain, Pertinent negatives: fever, neck stiffness, weakness, vertigo. Severity of symptoms: in the emergency department the pain is actually worse. Headache History: The patient has had previous headaches and this one is similar to previous episodes. The symptoms are alleviated by nothing. the symptoms are aggravated by nothing. Dr. Figueroa increased the patient's dosage of Trileptal from 150 mg PO BID to 300 mg PO BID today. 21:02 Patient reports fall injury to right side of her head yesterday after having a seizure. pm1 Historical: - Allergies: 20:28 Amoxicillin; jb4 20:28 lamotrigine; jb4 20:28 PENICILLINS; jb4 20:28 Tape; jb4 20:28 Lamictal; jb4 - Home Meds: 20:28 oxcarbazepine 150 mg oral tab [Active]; jb4 - PMHx: 20:28 Anxiety; Bronchitis; chiari malformation; Depression; epilepsy; hydrocephaly; jb4 Pneumonia; PTSD; - PSHx: 20:28 V P Shunt; jb4 - Immunization history:: Adult Immunizations up to date. - Social history:: Smoking status: Patient uses tobacco products, denies chronic smoking, but will smoke occasionally, Patient uses alcohol, occasionally. street drugs, marijuana. - Ebola Screening: : No symptoms or risks identified at this time. ROS: 21:02 Constitutional: Negative for fever, chills, and weight loss, Eyes: Negative for injury, pm1 pain, redness, and discharge, ENT: Negative for injury, pain, and discharge, Neck: Negative for injury, pain, and swelling, Respiratory: Negative for shortness of breath, cough, wheezing, and pleuritic chest pain, Abdomen/GI: Negative for abdominal pain, nausea, vomiting, diarrhea, and constipation, Back: Negative for injury and pain, : Negative for injury, bleeding, discharge, and swelling. 21:02 MS/Extremity: Negative for injury and deformity, Skin: Negative for injury, rash, and discoloration. 21:02 Cardiovascular: Positive for chest pain, Negative for edema, orthopnea, palpitations. 21:02 Neuro: Positive for headache, Negative for numbness, tingling, weakness. Exam: 21:02 Constitutional: This is a well developed, well nourished patient who is awake, alert, pm1 and in no acute distress. Head/Face: Normocephalic, atraumatic. Eyes: Pupils equal round and reactive to light, extra-ocular motions intact. Lids and lashes normal. Conjunctiva and sclera are non-icteric and not injected. Cornea within normal limits. Periorbital areas with no swelling, redness, or edema. ENT: Nares patent. No nasal discharge, no septal abnormalities noted. Tympanic membranes are normal and external auditory canals are clear. Oropharynx with no redness, swelling, or masses, exudates, or evidence of obstruction, uvula midline. Mucous membranes moist. Neck: Trachea midline, no thyromegaly or masses palpated, and no cervical lymphadenopathy. Supple, full range of motion without nuchal rigidity, or vertebral point tenderness. No Meningismus. Chest/axilla: Normal chest wall appearance and motion. Nontender with no deformity. No lesions are appreciated. Cardiovascular: Regular rate and rhythm with a normal S1 and S2. No gallops, murmurs, or rubs. Normal PMI, no JVD. No pulse deficits. Respiratory: Lungs have equal breath sounds bilaterally, clear to auscultation and percussion. No rales, rhonchi or wheezes noted. No increased work of breathing, no retractions or nasal flaring. Abdomen/GI: Soft, non-tender, with normal bowel sounds. No distension or tympany. No guarding or rebound. No evidence of tenderness throughout. Back: No spinal tenderness. No costovertebral tenderness. Full range of motion. Skin: Warm, dry with normal turgor. Normal color with no rashes, no lesions, and no evidence of cellulitis. MS/ Extremity: Pulses equal, no cyanosis. Neurovascular intact. Full, normal range of motion. 21:02 Neuro: Orientation: is normal, Motor: is normal, moves all fours, Sensation: is normal, no obvious gross deficits, Gait: is steady, at a normal pace, without difficulty. Vital Signs: 20:28 BP 116 / 83; Pulse 112; Resp 11; Temp 98.8(O); Pulse Ox 100% on R/A; Weight 86.18 kg jb4 (R); Height 5 ft. 0 in. (152.40 cm); Pain 10/10; 21:00 BP 112 / 87; Pulse 109; Resp 16; Pulse Ox 99% on R/A; jb4 22:30 BP 109 / 78; Pulse 92; Resp 18; Pulse Ox 97% on R/A; jb4 23:19 BP 111 / 78; Pulse 100; Resp 16; Pulse Ox 100% on R/A; jb4 20:28 Body Mass Index 37.11 (86.18 kg, 152.40 cm) jb4 MDM: 20:49 Patient medically screened. pm1 22:46 Data reviewed: vital signs. Data interpreted: Pulse oximetry: on room air is 97 %. pm1 Interpretation: normal. Counseling: I had a detailed discussion with the patient and/or guardian regarding: the historical points, exam findings, and any diagnostic results supporting the discharge/admit diagnosis, lab results, radiology results, the need for outpatient follow up, to return to the emergency department if symptoms worsen or persist or if there are any questions or concerns that arise at home. 08/26 21:02 Order name: Basic Metabolic Panel; Complete Time: 22:21 pm08/26 21:02 Order name: CBC with Diff; Complete Time: 22:21 pm08/26 20:51 Order name: CT Head C Spine pm08/26 21:02 Order name: Troponin (emerg Dept Use Only); Complete Time: 22:21 pm08/26 21:02 Order name: XRAY Chest (1 view) pm1 08/26 21:02 Order name: EKG; Complete Time: 21:03 pm08/26 21:02 Order name: Cardiac monitoring; Complete Time: 21:28 pm08/26 21:02 Order name: EKG - Nurse/Tech; Complete Time: 22:16 pm1 08/26 21:02 Order name: IV Saline Lock; Complete Time: 22:16 pm1 08/26 21:02 Order name: Labs collected and sent; Complete Time: 22:16 pm1 08/26 21:02 Order name: O2 Per Protocol; Complete Time: 21:29 pm1 08/26 21:02 Order name: O2 Sat Monitoring; Complete Time: 21:29 pm1 Administered Medications: 22:25 Drug: Valium 2 mg Route: PO; jb4 23:22 Follow up: Response: No adverse reaction; Marked relief of symptoms jb4 Disposition: 08/27 00:05 Co-signature as Attending Physician, Peter Davila MD I agree with the assessment and kdr plan of care. Disposition: 08/26/19 22:47 Discharged to Home. Impression: Headache, Chest pain, unspecified, Epilepsy and recurrent seizures. - Condition is Stable. - Discharge Instructions: Nonspecific Chest Pain, General Headache Without Cause, Seizure, Adult. - Medication Reconciliation Form, Thank You Letter, Antibiotic Education, Prescription Opioid Use, Family Work Release form. - Follow up: Emergency Department; When: As needed; Reason: Worsening of condition. Follow up: Private Physician; When: 2 - 3 days; Reason: Recheck today's complaints, Continuance of care, Re-evaluation by your physician. - Problem is new. - Symptoms have improved. Signatures: Dispatcher [employer] EDMS Peter Davila MD MD [facility] Tho Ridley NP CUSTOMER [employer]UTIONS SUPERVISOR pm1 Eddie Cotton RN RN jb4 Corrections: (The following items were deleted from the chart) 08/26 22:48 22:47 08/26/2019 22:47 Discharged to Home. Impression: Headache; Chest pain, pm1 unspecified. Condition is Stable. Forms are Medication Reconciliation Form, Thank You Letter, Antibiotic Education, Prescription Opioid Use. Follow up: Emergency Department; When: As needed; Reason: Worsening of condition. Follow up: Private Physician; When: 2 - 3 days; Reason: Recheck today's complaints, Continuance of care, Re-evaluation by your physician. Problem is new. Symptoms have improved. pm1 23:24 22:48 08/26/2019 22:47 Discharged to Home. Impression: Headache; Chest pain, jb4 unspecified; Epilepsy and recurrent seizures. Condition is Stable. Discharge Instructions: Nonspecific Chest Pain, General Headache Without Cause, Seizure, Adult. Forms are Medication Reconciliation Form, Thank You Letter, Antibiotic Education, Prescription Opioid Use. Follow up: Emergency Department; When: As needed; Reason: Worsening of condition. Follow up: Private Physician; When: 2 - 3 days; Reason: Recheck today's complaints, Continuance of care, Re-evaluation by your physician. Problem is new. Symptoms have improved. pm1 08/27 00:16 08/26 21:02 The patient complains of pain to the generalized all over head, pm1 pm1
--- NOTE | 2019-08-26 22:48 | ER ---
Nurse's Notes [facility] Name: Shanna Estrella Age: 24 yrs Sex: Female : 1995 Arrival Date: 08/26/2019 Time: 20:35 Bed 6 Private MD: Diagnosis: Headache;Chest pain, unspecified;Epilepsy and recurrent seizures Presentation: 08/26 20:28 Presenting complaint: EMS states: Pt began having a headache 1 day ago, pt had a jb4 seizure after the headache began and reports that the headache is worsening and is now nauseous. 20:28 Transition of care: patient was not received from another setting of care. Onset of jb4 symptoms was August 25, 2019. Risk Assessment: Do you want to hurt yourself or someone else? Patient reports no desire to harm self or others. Initial Sepsis Screen: Does the patient meet any 2 criteria? HR > 90 bpm. Yes Does the patient have a suspected source of infection? No. Patient's initial sepsis screen is negative. Care prior to arrival: None. 20:28 Method Of Arrival: EMS: [facility] jb4 20:28 Acuity: ELI 3 jb4 Triage Assessment: 20:28 Headache History: The patient has had previous headaches and this one is more severe jb4 than previous episodes. General: Appears in no apparent distress. uncomfortable, Behavior is calm, cooperative. Pain: Complains of pain in headache Pain does not radiate. Pain currently is 10 out of 10 on a pain scale. Pain began 1 day ago. Also complains of photophobia. Neuro: Level of Consciousness is awake, alert, obeys commands, Oriented to person, place, time, situation. Historical: - Allergies: 20:28 Amoxicillin; jb4 20:28 lamotrigine; jb4 20:28 PENICILLINS; jb4 20:28 Tape; jb4 20:28 Lamictal; jb4 - Home Meds: 20:28 oxcarbazepine 150 mg oral tab [Active]; jb4 - PMHx: 20:28 Anxiety; Bronchitis; chiari malformation; Depression; epilepsy; hydrocephaly; jb4 Pneumonia; PTSD; - PSHx: 20:28 V P Shunt; jb4 - Immunization history:: Adult Immunizations up to date. - Social history:: Smoking status: Patient uses tobacco products, denies chronic smoking, but will smoke occasionally, Patient uses alcohol, occasionally. street drugs, marijuana. - Ebola Screening: : No symptoms or risks identified at this time. Screenin:28 Abuse screen: Denies threats or abuse. Nutritional screening: No deficits noted. jb4 Tuberculosis screening: No symptoms or risk factors identified. Fall Risk None identified. Assessment: 20:28 General: Appears in no apparent distress. comfortable, Behavior is calm, cooperative, jb4 appropriate for age. Pain: Complains of pain in headache. 20:28 Neuro: Level of Consciousness is awake, alert, obeys commands, Oriented to person, jb4 place, time, situation. Cardiovascular: Patient's skin is warm and dry. Respiratory: Airway is patent Respiratory effort is Respiratory pattern is regular, symmetrical. GI: No signs and/or symptoms were reported involving the gastrointestinal system. : No signs and/or symptoms were reported regarding the genitourinary system. EENT: No signs and/or symptoms were reported regarding the EENT system. Derm: Skin is intact, Skin is pink, warm \T\ dry. Musculoskeletal: Circulation, motion, and sensation intact. Range of motion: intact in all extremities. 20:40 Reassessment: Pt reports pain with respiration, provider notified. jb4 22:00 Reassessment: Patient appears in no apparent distress at this time. Patient and/or jb4 family updated on plan of care and expected duration. Pain level reassessed. Patient is alert, oriented x 3, equal unlabored respirations, skin warm/dry/pink. Patient states feeling better. 23:19 Reassessment: Patient appears in no apparent distress at this time. Patient and/or jb4 family updated on plan of care and expected duration. Pain level reassessed. Patient is alert, oriented x 3, equal unlabored respirations, skin warm/dry/pink. PT and significant other verbalized understanding of d/c and follow up instructions. ambulated out of ED with steady gait. Patient states feeling better. Patient states symptoms have improved. Vital Signs: 20:28 BP 116 / 83; Pulse 112; Resp 11; Temp 98.8(O); Pulse Ox 100% on R/A; Weight 86.18 kg jb4 (R); Height 5 ft. 0 in. (152.40 cm); Pain 10/10; 21:00 BP 112 / 87; Pulse 109; Resp 16; Pulse Ox 99% on R/A; jb4 22:30 BP 109 / 78; Pulse 92; Resp 18; Pulse Ox 97% on R/A; jb4 23:19 BP 111 / 78; Pulse 100; Resp 16; Pulse Ox 100% on R/A; jb4 20:28 Body Mass Index 37.11 (86.18 kg, 152.40 cm) jb4 ED Course: 20:28 Arm band placed on right wrist. jb4 20:28 Patient has correct armband on for positive identification. Placed in gown. Bed in low jb4 position. Call light in reach. Side rails up X 1. shelter monitor on. Pulse ox on. NIBP on. 20:28 Maintain EMS IV. Dressing intact. Good blood return noted. Site clean \T\ dry. Gauge \T\ arin 4 site: 20g right wrist.. 20:35 Patient arrived in ED. ds1 20:36 Eddie Cotton RN is Primary Nurse. jb4 20:37 Tho Ridley NP is PHCP. pm1 20:37 Peter Davila MD is Attending Physician. pm1 20:41 Triage completed. jb4 21:21 XRAY Chest (1 view) In Process Unspecified. EDMS 21:45 CT Head C Spine In Process Unspecified. EDMS 23:19 No provider procedures requiring assistance completed. IV discontinued, intact, jb4 bleeding controlled, No redness/swelling at site. Pressure dressing applied. Administered Medications: 22:25 Drug: Valium 2 mg Route: PO; jb4 23:22 Follow up: Response: No adverse reaction; Marked relief of symptoms jb4 Outcome: 22:47 Discharge ordered by . pm1 23:19 Discharged to home ambulatory, with significant other. jb4 23:19 Condition: stable 23:19 Discharge instructions given to patient, significant other, Instructed on discharge instructions, follow up and referral plans. Demonstrated understanding of instructions, follow-up care. 23:24 Patient left the ED. jb4 Signatures: Dispatcher [employer] EDNY Farhana Vanegas ds1 Tho Ridley NP EMERGENCY ROOM REGISTERED NURSE pm1 Eddie Cotton RN RN jb4 Corrections: (The following items were deleted from the chart) 20:46 20:44 BP 116 / 83; Pulse 112bpm; Resp 11bpm; Pulse Ox 100% RA; Temp 98.8F Oral; 86.18 jb4 kg Reported; Height 5 ft. 0 in.; BMI: 37.1; Pain 10/10; jb4
--- NOTE | 2019-08-27 07:55 | RAD REPORT ---
EXAM DESCRIPTION: RAD - Chest Single View - 08/26/2019 9:22 pm CLINICAL HISTORY: Shortness of breath, seizure history COMPARISON: April 2019 TECHNIQUE: AP portable chest image was obtained 2119 hours . FINDINGS: Lungs are clear. Heart and vasculature are normal. No measurable pleural effusion and no p neumothorax. No acute bony abnormality seen. No acute aortic findings suspected. Shunt tubing overlie s the right side of the chest. Chest is not significantly different comparison. IMPRESSION: No acute cardiopulmonary process.
--- NOTE | 2019-08-28 06:38 | EKG ---
Test Date: 2019-08-26 Test Time: 21:57:31 Wastewater Analyst: BERNARDO MEASUREMENT RESULTS: Intervals: Rate: 92 MN: 128 QRSD: 76 QT: 348 QTc: 430 Frost: P: 63 MN: 128 QRS: 47 T: 59 INTERPRETIVE STATEMENTS: Normal sinus rhythm Normal ECG Compared to ECG 04/29/2019 22:43:00 Sinus arrhythmia no longer present Electronically Signed On 08-28-19 06:37:43 STITCH SEPARATOR by Bob Chapa
--- NOTE | 2019-08-29 11:28 | RAD REPORT ---
EXAM DESCRIPTION: CT - [id number] - 08/27/2019 8:18 am CLINICAL HISTORY: The patient is 24 years old and is Female; Headache, Fall injury TECHNIQUE: Axial computed tomography images of the head/brain and cervical spine without intravenous contrast. Sagittal and coronal reformatted images were created and reviewed. This CT exam was pe rformed using one or more of the following dose reduction techniques: automated exposure control, a djustment of the mA and/or kV according to patient size, and/or use of iterative reconstruction techn ique. COMPARISON: CT head and neck without contrast dated June 07, 2019. 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 No hemorrhage or mass effect . Right parietal encephalomalacia. Prominence of the cerebral sulci. Effacement of the basilar cister ns. VENTRICLES: Unchanged effacement of the fourth ventricle. No hydrocephalus. SKULL: Prior suboccipital craniotomy. No acute fracture. SINUSES: Unremarkable as visualized. No acute sinusitis. MASTOID AIR CELLS: Unremarkable as visualized. No mastoid effusion. VERTEBRAE: Straightening of cervical lordosis. No acute fracture. DISCS/SPINAL CANAL/NEURAL FORAMINA: No acute findings. No spinal canal stenosis. 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 REVELES MAGNUM: Unchanged termination of cerebellar tonsils measuring approximately 9 cm. IMPRESSION: 1. No acute intracranial hemorrhage, hydrocephalus or herniation. If clinical concern for acute ischemia, consider MRI brain without contrast for further evaluation. 2. No acute cervical spine fracture or subluxation. 3. 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 4. Stable position of FORM BUILDING SUPERVISOR shunt. No hydrocephalus. 5. 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 Electronically signed by: Arie Browne DO 08/26/2019 10:20 PM GENERAL LOT ATTENDANT Due to temporary technical issues with the PACS/Fluency reporting system, reports are being signed by the in house radiologist as a courtesy to ensure prompt reporting. The interpreting radiologist is f ully responsible for the content of the report.
== END 2019-08-26 23:24 | disposition home or self-care (01) ==
LOC: ER 20:29
DX: R07.9 Chest pain, unspecified (principal); G40.909 Epilepsy, unspecified, not intractable, without status epilepticus; Z88.0 Allergy status to penicillin; Z88.1 Allergy status to other antibiotic agents; Z88.8 Allergy status to other drugs, medicaments and biological substances
CPT/HCPCS: 36415; 70450; 71045; 72125; 80048; 84484; 85025; 93005; 99284

== ENCOUNTER 2019-08-27 16:02 | Emergency (ER) | payer SELFPAY ==
[2019-08-27] MEDS ORDERED: LORazepam 2 MG/ML VIAL ONE (16:27)
[2019-08-27 16:38] LABS: Absolute Lymphocytes (CBC) 1.4 K/uL (0.7-4.9); Basophils % 0.9 % (0-1.3); Lymphocytes % 18.8 % (15.3-44.8); MPV 7.9 fL (7.6-11.3); RBC Red Blood Cell Count 4.91 M/uL (3.86-4.86)
[2019-08-27 16:59] LABS: Bilirubin Total 0.2 mg/dL (0.2-1.0); Potassium 3.5 mmol/L (3.5-5.1); Protein, Total 8.2 g/dL (6.4-8.2)
--- NOTE | 2019-08-27 17:11 | RAD REPORT ---
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 TECHNIQUE: Axial 5 mm thick images of the head were obtained without IV contrast. All CT scans are performed using dose optimization technique as appropriate and may include automated exposure control or mA/KV adjustment according to patient size. FINDINGS: No intracranial hemorrhage is present. No edema or shift of midline structures. DRY CLEANING MACHINE OPERATOR HELPER shunt i s in place entering lateral right frontal region. Tip is in the midline. Small extra-axial fluid kingsley ection along the superior lateral right cerebral convexity unchanged. Ventricles are stable in size. 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 Mastoid air cells and visualized portions of the paranasal sinuses are clear. No acute bony findings. IMPRESSION: Ventricles are stable. Intracranial findings also stable since February 2018.
--- NOTE | 2019-08-27 17:14 | RAD REPORT ---
EXAM DESCRIPTION: RAD - Shuntogram - 08/27/2019 5:06 pm CLINICAL HISTORY: headache, vomiting, shunt tube COMPARISON: Shuntogram dated 12/28/2018 TECHNIQUE: Multiple images of the head, neck, chest and abdomen were obtained as a shuntogram series FINDINGS: Multiple views of the head, neck, chest and abdomen show the old and new shunt tubes. The new shunt tube shows no abnormal bend or kink. No suspicious or unexpected findings. No suspicion for a dislodged or malfunction shunt tube. IMPRESSION: Negative shunt series for acute or significant finding.
--- NOTE | 2019-08-27 18:52 | EDPHYS ---
Physician Documentation [facility] Name: Shanna Estrella Age: 24 yrs Sex: Female : 1995 Arrival Date: 08/27/2019 Time: 16:11 Bed 18 Private MD: ED Physician Darius Tam HPI: 08/27 16:23 This 24 yrs old Female presents to ER via EMS with complaints of Vomiting. jmm 16:23 The patient presents to the emergency department with nausea, vomiting. Onset: The jmm symptoms/episode began/occurred acutely, just prior to arrival. Possible causes: garbage collector shunt malfunction. The symptoms are aggravated by nothing. The symptoms are alleviated by nothing. Associated signs and symptoms: Pertinent negatives: fever. 16:30 This is a 24 year old female with a history of chiaria malformation, epilepy, jmm hydrocephalus that presents to the ED with complaints of a headache which resolved after she vomited. 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 . INSPECTOR FINAL ASSEMBLY CONVEYOR LINE: 16:11 LMP 08/23/2019 rb1 Historical: - Allergies: 16:11 Amoxicillin; rb1 16:11 Lamictal; rb1 16:11 lamotrigine; rb1 16:11 PENICILLINS; rb1 16:11 Tape; rb1 - Home Meds: 16:11 oxcarbazepine 150 mg Oral tab [Active]; rb1 - PMHx: 16:11 Anxiety; Bronchitis; chiari malformation; Depression; epilepsy; hydrocephaly; rb1 Pneumonia; PTSD; - PSHx: 16:11 V P Shunt; rb1 - Immunization history:: Adult Immunizations up to date. - Social history:: Smoking status: Patient uses tobacco products, smokes one-half pack cigarettes per day. - Ebola Screening: : Patient negative for fever greater than or equal to 101.5 degrees Fahrenheit, and additional compatible Ebola Virus Disease symptoms. ROS: 16:30 Constitutional: Negative for fever, chills, and weight loss, Cardiovascular: Negative jmm for chest pain, palpitations, and edema, Respiratory: Negative for shortness of breath, cough, wheezing, and pleuritic chest pain. 16:30 Abdomen/GI: Positive for vomiting. 16:30 Neuro: Positive for headache. 16:30 All other systems are negative. Exam: 16:30 Constitutional: This is a well developed, well nourished patient who is awake, alert, jmm and in no acute distress. Head/Face: atraumatic. Eyes: EOMI, no conjunctival erythema appreciated ENT: Moist Mucus Membranes Neck: Trachea midline, Supple Chest/axilla: Normal chest wall appearance and motion. Cardiovascular: Regular rate and rhythm. No edema appreciated Respiratory: Normal respirations, no respiratory distress appreciated Abdomen/GI: Non distended, soft Back: Normal ROM Skin: General appearance color normal MS/ Extremity: Moves all extremities, no obvious deformities appreciated, no edema noted to the lower extremities Neuro: Awake and alert, normal gait Vital Signs: 16:11 BP 125 / 94; Pulse 110; Resp 20; Temp 98.7(O); Pulse Ox 100% on R/A; Weight 86.18 kg rb1 (R); Height 5 ft. 2 in. (157.48 cm) (R); Pain 0/10; 17:15 BP 154 / 94; Pulse 108; Resp 20; Temp 99.4(O); Pulse Ox 100% on R/A; mh5 19:00 BP 124 / 96; Pulse 109; Resp 18; Pulse Ox 99% on R/A; wh 20:08 BP 127 / 90; Pulse 97; Resp 18; Pulse Ox 100% ; wh 16:11 Body Mass Index 34.75 (86.18 kg, 157.48 cm) rb1 MDM: 16:13 Patient medically screened. [facility] 18:48 Data reviewed: vital signs, nurses notes. Counseling: I had a detailed discussion with [facility] the patient and/or guardian regarding: the historical points, exam findings, and any diagnostic results supporting the discharge/admit diagnosis, the need to transfer to another facility. ED course: I discussed the patient with Dr. Escudero whom accepted transfer.. 08/27 16:14 Order name: CBC with Diff; Complete Time: 16:49 [facility] 08/27 16:14 Order name: CMP; Complete Time: 17:03 [facility] 08/27 16:14 Order name: CT Head Brain wo Cont; Complete Time: 17:12 [facility] 08/27 16:14 Order name: Shuntogram XRAY; Complete Time: 17:18 [facility] 08/27 16:14 Order name: Saline Lock; Complete Time: 16:26 [facility] Administered Medications: 16:26 Drug: Ativan 1 mg Route: IVP; Site: right antecubital; rb1 17:43 Follow up: Response: No adverse reaction; Anxiety decreased; pt. was off the unit rb1 Disposition: 08/28 07:19 Co-signature as Attending Physician, Darius Tam MD. rn Disposition: 08/27/19 18:52 Transfer ordered to [facility]. Diagnosis are Headache, Vomiting. - Reason for transfer: Higher level of care. - Accepting physician is Kota. - Condition is Stable. - Problem is new. - Symptoms have improved. Signatures: Dispatcher [employer] EDMS Pranay Daly PA PA jmm Nieto, Roman, MD MD rn Karen Nieves RN RN rb1 Marlena Snyder Corrections: (The following items were deleted from the chart) 08/27 20:11 18:52 08/27/2019 18:52 Transfer ordered to [facility]. Diagnosis is Headache; wh Vomiting. Reason for transfer: Higher level of care. Accepting physician is Kota. Condition is Stable. Problem is new. Symptoms have improved. [facility]
--- NOTE | 2019-08-27 18:52 | ER ---
Nurse's Notes [facility] Name: Shanna Estrella Age: 24 yrs Sex: Female : 1995 Arrival Date: 08/27/2019 Time: 16:11 Bed 18 Private MD: Diagnosis: Headache;Vomiting Presentation: 08/27 16:11 Presenting complaint: EMS states: Pt. was here yesterday and released. Today she is rb1 vomiting and had a headache but it resolved after the pt. vomited. BP 122/78, P 120's, BGL 144. No nausea and vomiting noted during transport to the hospital. No interventions were done. Transition of care: patient was not received from another setting of care. Onset of symptoms was August 26, 2019. Risk Assessment: Do you want to hurt yourself or someone else? Patient reports no desire to harm self or others. Initial Sepsis Screen: Does the patient meet any 2 criteria? No. Patient's initial sepsis screen is negative. Does the patient have a suspected source of infection? No. Patient's initial sepsis screen is negative. Care prior to arrival: None. 16:11 Method Of Arrival: EMS: [facility] rb1 16:11 Acuity: ELI 3 rb1 Triage Assessment: 16:11 General: Appears in no apparent distress. comfortable, Behavior is calm, cooperative, rb1 Denies fever. General: Pt. reports that she has a shunt behind her right ear that goes into the stomach. Pt. is concerned that it is malfunctioning. . Pain: Denies pain. Neuro: Level of Consciousness is awake, alert, obeys commands, Oriented to person, place, time, situation. Cardiovascular: Capillary refill < 3 seconds is brisk in bilateral fingers. Respiratory: Airway is patent Respiratory effort is even, unlabored, Respiratory pattern is regular, symmetrical. GI: Reports vomiting. : No signs and/or symptoms were reported regarding the genitourinary system. Derm: Skin is pink, warm \T\ dry. A&P MECHANIC: 16:11 LMP 08/23/2019 rb1 Historical: - Allergies: 16:11 Amoxicillin; rb1 16:11 Lamictal; rb1 16:11 lamotrigine; rb1 16:11 PENICILLINS; rb1 16:11 Tape; rb1 - Home Meds: 16:11 oxcarbazepine 150 mg Oral tab [Active]; rb1 - PMHx: 16:11 Anxiety; Bronchitis; chiari malformation; Depression; epilepsy; hydrocephaly; rb1 Pneumonia; PTSD; - PSHx: 16:11 V P Shunt; rb1 - Immunization history:: Adult Immunizations up to date. - Social history:: Smoking status: Patient uses tobacco products, smokes one-half pack cigarettes per day. - Ebola Screening: : Patient negative for fever greater than or equal to 101.5 degrees Fahrenheit, and additional compatible Ebola Virus Disease symptoms. Screenin:11 Abuse screen: Denies threats or abuse. Nutritional screening: No deficits noted. rb1 Tuberculosis screening: No symptoms or risk factors identified. Fall Risk None identified. Assessment: 16:11 General: See triage assessment. rb1 17:00 Reassessment: Pt. off unit for testing. rb1 17:43 Reassessment: Patient appears in no apparent distress at this time. Patient and/or rb1 family updated on plan of care and expected duration. Pain level reassessed. Patient is alert, oriented x 3, equal unlabored respirations, skin warm/dry/pink. Patient denies pain at this time. 18:43 Reassessment: Patient appears in no apparent distress at this time. No changes from [facility] previously documented assessment. 19:10 Reassessment: Patient appears in no apparent distress at this time. Patient and/or family updated on plan of care and expected duration. Pain level reassessed. Patient is alert, oriented x 3, equal unlabored respirations, skin warm/dry/pink. 19:17 Reassessment: Called report to BANG Smith at [facility]. Information from the [facility] was given. rb1 All questions asked and answered. 20:08 Reassessment: Patient appears in no apparent distress at this time. No changes from previously documented assessment. Patient and/or family updated on plan of care and expected duration. Pain level reassessed. Patient is alert, oriented x 3, equal unlabored respirations, skin warm/dry/pink. Patient denies pain at this time. Vital Signs: 16:11 BP 125 / 94; Pulse 110; Resp 20; Temp 98.7(O); Pulse Ox 100% on R/A; Weight 86.18 kg rb1 (R); Height 5 ft. 2 in. (157.48 cm) (R); Pain 0/10; 17:15 BP 154 / 94; Pulse 108; Resp 20; Temp 99.4(O); Pulse Ox 100% on R/A; [facility] 19:00 BP 124 / 96; Pulse 109; Resp 18; Pulse Ox 99% on R/A; 20:08 BP 127 / 90; Pulse 97; Resp 18; Pulse Ox 100% ; 16:11 Body Mass Index 34.75 (86.18 kg, 157.48 cm) [facility] ED Course: 16:11 Patient arrived in ED. [facility] 16:11 Arm band placed on right wrist. [facility] 16:11 Patient has correct armband on for positive identification. Bed in low position. Call [facility] light in reach. Side rails up X 1. Pulse ox on. NIBP on. 16:12 Pranay Daly PA is PHCP. [facility] 16:12 Darius Tam MD is Attending Physician. [facility] 16:[address] [facility] 16:26 Inserted saline lock: 22 gauge in right forearm, using aseptic technique. ,using [facility] aseptic technique. IV inserted by BANG Sandoval Blood collected. 16:29 CMP Sent. [facility] 16:29 CBC with Diff Sent. [facility] 16:43 CT Head Brain wo Cont In Process Unspecified. EDMS 17:06 Shuntogram XRAY In Process Unspecified. EDMO 18:11 Karen Nieves, RN is Primary Nurse. [facility] 20:10 No provider procedures requiring assistance completed. Patient transferred, IV remains in place. Administered Medications: 16:26 Drug: Ativan 1 mg Route: IVP; Site: right antecubital; [facility] 17:43 Follow up: Response: No adverse reaction; Anxiety decreased; pt. was off the unit [facility] Intake: Outcome: 18:52 ER care complete, transfer ordered by . [facility] 20:10 Transferred by ground EMS to [facility], Transfer form completed. X-rays sent w/ patient. Note: Report given to [facility] 20:10 Condition: stable 20:10 Instructed on the need for transfer. 20:11 Patient left the ED. Signatures: Dispatcher [employer] EDMS Pranay Daly PA PA Karen Martines, RN RN [facility] Kadi Benito [facility] Marlena Snyder
[2019-08-27 20:57] VITALS: TEMP 99.4
[2019-08-27 20:59] VITALS: BP 127/90; O2SAT 100
== END 2019-08-27 20:11 | disposition short-term general hospital (02) ==
LOC: ER 16:02
DX: R51 Headache (principal); F41.9 Anxiety disorder, unspecified; F17.210 Nicotine dependence, cigarettes, uncomplicated; Z98.2 Presence of cerebrospinal fluid drainage device; Z88.0 Allergy status to penicillin; Z88.1 Allergy status to other antibiotic agents; Z88.8 Allergy status to other drugs, medicaments and biological substances; Z91.048 Other nonmedicinal substance allergy status
CPT/HCPCS: 36415; 49427; 70450; 75809; 80053; 85025; 96374; 99285

== ENCOUNTER 2020-06-30 09:12 | Emergency (ER) | payer SELFPAY ==
--- OUTSIDE RECORDS SUMMARY | 2020-06-30 09:16 | XMS REPORT | Continuity of Care Document ---
:1995 Author Organization [facility] t Address [address] [place] [address] Care Team Providers Name Role Phone Doctor Unassigned, Name Attending Clinician Unavailable Rolan Figueroa Attending Clinician Renata Chung Attending Clinician Brianne Yost Attending Clinician Brianne Yost Admitting Clinician Problems Condition Condition Condition Status Onset Resolution Last Treating Co mments Source Name Details Category Date Date Treatment Clinician Date OTHER Diagnosis Active 2015-082016-07-15 Mem oria 09-14 22:55:00 l OTHER 00:00: [place] 00 Active 07/15/2016 [facility] POSSIBLE Diagnosis Active 2015-082016-07-11 M emoria MALFUNCTIO 09-10 22:33:00 l N [employer] SHUNT POSSIBLE 00:00: Juan edge MALFUNCTIO 00 N [employer] SHUNT Active 07/11/2016 [facility] HEADACHE Diagnosis Active 2015-082016-07-14 M emoria 09-10 08:24:00 l HEADACHE 00:00: Ernie n 00 Active 07/11/2016 [facility] 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) Resolved Problem 09/11/2019 [facility] Depressive Problem Resolve 2019-09-11 Memoria disorder d 22:27:01 l (disorder) Ernie n Depressive disorder (disorder) Resolved Problem 09/11/2019 [facility] Posttrauma Problem Resolve 2019-09-11 Memoria tic stress d 22:27:01 l disorder [place] (disorder) Posttrauma tic stress disorder (disorder) Resolved Problem 09/11/2019 [facility] Chiari Problem Active 2019-09-11 Memor ia malformati 22:27:01 l on Chiari [place] (disorder) malformati on (disorder) Active Problem 09/11/2019 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) Active Problem 09/11/2019 [facility] Hydrocepha Problem Active 2019-09-11 M emoria willam 22:27:01 l (disorder) Ernie n Hydrocepha willam (disorder) Active Problem 09/11/2019 [facility] Simple Problem Active 2019-09-11 Memor ia obesity 22:27:01 l (disorder) Simple Herm abran obesity (disorder) Active Problem 09/11/2019 [facility] Discharge Problem 2015-082016-07-19 2016-07-19 Memoria Diagnosis: 09-15 04:14:28 04:14:28 l Acute 06:00: [place] cervical Discharge 00 sprain Diagnosis: Acute cervical sprain 07/16/2016 07/19/2016 [facility] Allergies, Adverse Reactions, Alerts Allergy Allergy Status Severity Reaction(s) Onset Inactive Treating Comm ents Source Name Type Date Date Clinician penicill penicill Active Memori a ins ins l [place] amoxicil amoxicil Active Memori a clovis clovis l [facility] Active Memoria Tape Tape l [place] LaMICtal LaMICtal Active Memori a l [place] Social History Smoking Status Start Date Stop Date Source Social History 2016-07-16 05:05:59 Yaron segundo Medications Ordered Filled Start Stop Current Ordering Indication Dosage Frequency Signature Comments Components Source Medication Medication Date Date Medication? Clinician (SIG) Name Name oxcarbazepi 2018-08 Yes 150 mg = 1 Memoria ne 150 MG 2-11 tab, PO, l Oral Tablet 21:10: BID, # 60 H ermann [Trileptal] 00 tab, 3 Refill(s), Pharmacy: [place] [id number] Ketorolac 2015-08 No 60 mg, Memori a 09-15 Route: IM, l 05:21: Drug form: [place] 00 INJ, ONCE, Dosing Weight 84.545, kg, Priority: STAT, Start date: 07/15/16 23:21:00 CAP LINING MACHINE OPERATOR, Stop date: 07/15/16 23:21:00 CAP LINING MACHINE OPERATOR Valium 2015-08 No 5 mg, Memoria 09-15 Route: IM, l 05:21: Drug form: [place] 00 INJ, ONCE, Dosing Weight 84.545, kg, Priority: STAT, Start date: 07/15/16 23:21:00 CAP LINING MACHINE OPERATOR, Stop date: 07/15/16 23:21:00 CAP LINING MACHINE OPERATOR Ativan 2015-08 No Notes: Memoria 09-13 (Same as: l 05:15: Ativan) [place] 00 nystatin 2015-08 No Notes: Memoria topical 09-12 (Same l 100,000 23:00: as:Mycosta Herm abran units/g 00 tin, cream Nilstat) For external use only. Nystatin 2015-08 No 1 appl, Memori a [id number] 09-12 Route: l UNT/ML / 15:00: TOP, TID, Eusebio abran Triamcinolo 00 Drug form: ne CRM, Start Acetonide 1 date: MG/ML 07/13/16 Topical 9:00:00 Cream CAP LINING MACHINE OPERATOR, Duration: 30 day, Stop date: 08/11/16 17:00:00 CAP LINING MACHINE OPERATOR Sodium 2015-08 No 250 mL, Memoria Chloride 09-11 250 ml/hr, l 0.154 22:18: Infuse [place] MEQ/ML 00 Over: 1 Injectable hr, Route: Solution IV, 250, Drug form: INJ, ONCE, Priority: STAT, Dosing Weight 84.545 kg, Start date: 07/12/16 16:18:00 CAP LINING MACHINE OPERATOR, Duration: 1 doses or times, Stop date: 07/12/16 16:18:00 CAP LINING MACHINE OPERATOR Promethazin 2015-08 No Notes: Do M emoria e 09-11 not give l 22:17: IV push. [place] 00 (Same as: Phenergan) Docusate 2015-08 No Notes: Memoria 09-11 (Same as: l 15:00: Colace) [place] (Do Not Crush) sennosides, 2015-08 No Notes: Asmi stefani [facility] 09-11 (Same as: l 15:00: Senokot) [place] Saline 2015-08 No Notes: Memoria Flush 0.9% 09-11 (Same as: l 15:00: BD [place] Posiflush) tramadol 2015-08 Yes 50 mg = 1 Sami stefani hydrochlori - tab, PO, l de 50 MG 13:15: Q4H, PRN Danika nn Oral Tablet 12 for pain, [Ultram] X 10 day, # 60 tab, 0 Refill(s) tramadol 2015-08 No Notes: Not Mem oria hydrochlori 09-11 to exceed l de 50 MG 13:14: 400mg/day. Her segundo Oral Tablet 00 (Same As: [Ultram] Ultram) tramadol 2015-08 No 50 mg = 1 Sami stefani hydrochlori 09-11 tab, PO, l de 50 MG 13:12: Q4H, PRN Danika nn Oral Tablet 00 for pain, [Ultram] X 10 day, # 60 tab, 0 Refill(s) senna 8.6 2015-08 Yes 8.6 mg = 1 Me moria mg oral -26 tab, PO, l tablet 13:12: Q12H, X 14 Danika nn 00 day, # 28 tab, 0 Refill(s) Docusate 2015-08 Yes 100 mg = 1 Mem oria Sodium 100 -26 cap, PO, l MG Oral 13:12: Q12H, # 28 Herm abran Capsule 00 cap, 0 Refill(s) Regular 2015-08 No 60 Memoria Insulin, 1-26 units) l Human 100 04:18: WASTE: F/P He rmann UNT/ML 00 - Black; E Injectable - Solution Municipal Trash Bin Stable for 28 days at room temperatur e Expires in days from ____Date Dextrose 2015-08 No 25 gm, 50 Sami stefani 50% Syringe 1-26 mL, Route: l 04:18: IVP, Drug [place] Form: INJ, Dosing Weight 84.545, kg, PRN, PRN Abnormal Lab Result, Start date: 07/11/16 22:18:00 CAP LINING MACHINE OPERATOR, Duration: 30 day, Stop date: 08/10/16 22:17:00 CAP LINING MACHINE OPERATOR Bisacodyl 2015-08 No Notes: Memori a 09-11 (Same As: l 04:18: Dulcolax, [place] 00 Bisco-Lax) Saline 2015-08 No Notes: Memoria Flush 0.9% 09-11 (Same as: l 04:18: BD [place] Posiflush) Ondansetron 2015-08 No Notes: Sami stefani 09-11 (Same as: l 04:18: Zofran) [place] 00 MEDICATION WASTE Product Size: 4 mg Product Wasted: _0__ mg Acetaminoph 2015-08 No Notes: Do M emoria en 325 MG / 09-11 not exceed l Hydrocodone 04:18: 4gm/day of [place] Bitartrate 00 acetaminop 10 MG Oral hen. Tablet (Same as: [place] 325/10) Acetaminoph 2015-08 No Notes: Sami stefani en 325 MG / 09-11 (Same as: l Hydrocodone 04:18: [place] Danika nn Bitartrate 00 325/5) Do 5 MG Oral not exceed Tablet 4gm/day of acetaminop hen. Sodium 2015-08 No 1,000 mL, Memori a Chloride 09-11 Rate: 75 l 0.154 04:18: ml/hr, [place] MEQ/ML 00 Infuse Injectable over: 13.3 Solution hr, Route: IV, Dosing Weight 84.545 kg, Total Volume: 1,000, Start date: 07/11/16 22:18:00 CAP LINING MACHINE OPERATOR, Duration: 30 day, Stop date: 08/10/16 22:17:00 CAP LINING MACHINE OPERATOR Reglan 2015-08 No Notes: Memoria 09-11 (Same as: l 02:59: Reglan) [place] 00 Sodium 2015-08 No 1,000 mL, Memori a Chloride 09-11 1,000 l 0.154 02:59: ml/hr, [place] MEQ/ML 00 Infuse Injectable Over: 1 Solution hr, Route: IV, 1,000, Drug form: INJ, ONCE, Priority: STAT, Dosing Weight 84.545 kg, Start date: 07/11/16 20:59:00 CAP LINING MACHINE OPERATOR, Duration: 1 doses or times, Stop date: 07/11/16 20:59:00 CAP LINING MACHINE OPERATOR Acetaminoph 2015-08 No Notes: Max Memoria en 09-11 acetaminop l 02:59: hen 4000 [place] 00 mg/day (4 gm/day). (Same as: Tylenol Extra Strength) Vital Signs Vital Name Observation Time Observation Value Comments Source Systolic (mm Hg) 2019-07-27 20:13:00 Sami rial [place] Diastolic (mm Hg) 2019-07-27 20:13:00 Mem orial [place] Heart Rate 2019-07-27 20:13:00 Memorial [place] Respitory Rate 2019-07-27 20:13:00 Memori al [place] Height 2019-07-27 20:13:00 160.02 cm [facility] [place] Weight 2019-07-27 20:13:00 [facility] [place] BMI Calculated 2019-07-27 20:13:00 Memori al [place] Respitory Rate 2016-07-16 07:16:00 Memori al [place] Systolic (mm Hg) 2016-07-16 07:16:00 Sami rial [place] Diastolic (mm Hg) 2016-07-16 07:16:00 Mem orial [place] Temperature Oral (F) 2016-07-16 07:16:00 98.2 F [facility] [place] Temperature Oral (F) 2016-07-16 05:06:00 98.6 F [facility] [place] Respitory Rate 2016-07-16 05:06:00 Memori al [place] Diastolic (mm Hg) 2016-07-16 05:06:00 Mem orial [place] Systolic (mm Hg) 2016-07-16 05:06:00 Sami rial [place] Weight 2016-07-16 04:31:00 [facility] [place] Respitory Rate 2016-07-16 04:31:00 Memori al [place] Heart Rate 2016-07-16 04:31:00 [facility] [place] Temperature Oral (F) 2016-07-16 04:31:00 98.8 F [facility] [place] BMI Calculated 2016-07-16 04:31:00 Memori al [place] Height 2016-07-16 04:31:00 154.94 cm [facility] [place] Systolic (mm Hg) 2016-07-16 04:31:00 Sami rial [place] Diastolic (mm Hg) 2016-07-16 04:31:00 Mem orial [place] Respitory Rate 2016-07-14 16:00:00 Memori al [place] Temperature Oral (F) 2016-07-14 15:41:00 97.9 F [facility] [place] Systolic (mm Hg) 2016-07-14 15:00:00 Sami rial [place] Diastolic (mm Hg) 2016-07-14 15:00:00 Mem orial [place] Respitory Rate 2016-07-14 15:00:00 Memori al [place] Systolic (mm Hg) 2016-07-14 14:00:00 Sami rial [place] Diastolic (mm Hg) 2016-07-14 14:00:00 Mem orial [place] Respitory Rate 2016-07-14 14:00:00 Memori al [place] Systolic (mm Hg) 2016-07-14 13:00:00 Sami rial [place] Diastolic (mm Hg) 2016-07-14 13:00:00 Mem orial [place] Heart Rate 2016-07-14 05:38:00 [facility] [place] Heart Rate 2016-07-14 05:19:00 [facility] [place] Heart Rate 2016-07-14 05:04:00 [facility] [place] Temperature Oral (F) 2016-07-13 18:30:00 98.0 F [facility] [place] Temperature Oral (F) 2016-07-13 14:00:00 98.1 F [facility] [place] Weight 2016-07-12 06:59:00 [facility] [place] Weight 2016-07-12 02:34:00 [facility] [place] Height 2016-07-12 02:34:00 152.4 cm [facility] [place] BMI Calculated 2016-07-12 02:34:00 Memori al [place] Procedures Procedure Date / Time Performed Performing Clinician [facility] Creation of WEIGHER AND GRADER shunt Memorial rmann Encounters Start End Encounter Admission Attending Care Care Encounter Source Date/Time Date/Time Type Type Clinicians Facility Department ID 2019-09-28 2019-09-28 Orders Doctor CATARINO [id number] 00:00:00 00:00:00 Only Unassigned, JANNIE [id number] [place] [id number] 2019-09-09 2019-09-09 [id number] 11:00:00 11:00:00 German 03 Rolan 2019-09-08 2019-09-08 Outpatient Carolina, MHMISCHER MHMISCHER [id number] 15:30:00 15:30:00 German 04 Rolan 2019-08-12 2019-08-12 Outpatient Carolina, MHMISCHER MHMISCHER [id number] 15:30:00 15:30:00 German 02 Rolan 2019-07-29 2019-07-29 Orders Doctor CATARINO [id number] 00:00:00 00:00:00 Only Unassigned, JANNIE [id number] [facility] [id number] 2019-07-27 2019-07-27 Outpatient Carolina, MHMISCHER MHMISCHER [id number] 14:00:00 23:59:59 German Rolan 2016-07-15 2016-07-16 Outpatient [place], [place] [id number] 22:24:00 01:27:00 Verona Ahmed 00 2016-07-11 2016-07-14 Outpatient Esgordonzi [facility] [id number] 20:34:00 11:57:00 YostJenaro barger 2004-07-18 2004-07-18 Orders Doctor CATARINO [id number] 00:00:00 00:00:00 Only Unassigned, JANNIE [id number] [facility] [id number] Results Test Description Test Time Test Comments Results Result [facility] e Comments BODY FLUIDS 2016-07-13 34 Memorial 13:35:00 [place] BODY FLUIDS 2016-07-13 Colorless Memorial 13:35:00 (07/13/16 7:35 [place] AM) BODY FLUIDS 2016-07-13 Clear (07/13/16 Memorial 13:35:00 7:35 AM) [place] BODY FLUIDS 2016-07-13 xxxxxxx Memorial 13:35:00 (07/13/16 7:35 [place] AM) BODY FLUIDS 2016-07-13 0 Memorial 13:35:00 [place] BODY FLUIDS 2016-07-13 Colorless Memorial 13:35:00 (11/27/16 7:35 [place] AM) BODY FLUIDS 2016-07-13 1 Memorial 13:35:00 [place] BODY FLUIDS 2016-07-13 56 Memorial 13:35:00 [place] IMMUNOLOGY 2016-07-13 1010 Memorial 13:35:00 [place] IMMUNOLOGY 2016-07-13 4100.0 Memorial 13:35:00 [place] IMMUNOLOGY 2016-07-13 1.7 Memorial 13:35:00 [place] IMMUNOLOGY 2016-07-13 14.7 Memorial 13:35:00 [place] IMMUNOLOGY 2016-07-13 0.5 Memorial 13:35:00 [place] CHEM PANEL 2016-07-13 128 Memorial 07:33:00 [place] CHEM PANEL 2016-07-13 8.8 Memorial 07:33:00 [place] CHEM PANEL 2016-07-13 23 Memorial 07:33:00 [place] CHEM PANEL 2016-07-13 108 Memorial 07:33:00 [place] CHEM PANEL 2016-07-13 0.61 Memorial 07:33:00 [place] CHEM PANEL 2016-07-13 142 Memorial 07:33:00 [place] CHEM PANEL 2016-07-13 7 Memorial 07:33:00 [place] CHEM PANEL 2016-07-13 3.9 Memorial 07:33:00 [place] CHEM PANEL 2016-07-13 88 Memorial 07:33:00 [place] CHEM PANEL 2016-07-13 14.9 Memorial 07:33:00 [place] HEMATOLOGY 2016-07-13 37.9 Memorial 07:33:00 [place] HEMATOLOGY 2016-07-13 52.1 Memorial 07:33:00 [place] HEMATOLOGY 2016-07-13 7.3 Memorial 07:33:00 [place] HEMATOLOGY 2016-07-13 0.8 Memorial 07:33:00 [place] HEMATOLOGY 2016-07-13 1.9 Memorial 07:33:00 [place] HEMATOLOGY 2016-07-13 3.8 Memorial 07:33:00 [place] HEMATOLOGY 2016-07-13 0.1 Memorial 07:33:00 [place] HEMATOLOGY 2016-07-13 0.5 Memorial 07:33:00 [place] HEMATOLOGY 2016-07-13 2.7 Memorial 07:33:00 [place] HEMATOLOGY 2016-07-13 0.1 Memorial 07:33:00 [place] HEMATOLOGY 2016-07-13 4.53 Memorial 07:33:00 [place] HEMATOLOGY 2016-07-13 7.2 Memorial 07:33:00 [place] HEMATOLOGY 2016-07-13 38.5 Memorial 07:33:00 [place] HEMATOLOGY 2016-07-13 13.0 Memorial 07:33:00 [place] HEMATOLOGY 2016-07-13 33.9 Memorial 07:33:00 [place] HEMATOLOGY 2016-07-13 07:33:00 Test Item Value Reference Range Interpretation Comme nts MCH (test code = MCH) 28.8 pg 27.0-31.0 Memorial [id number] 07:33:0014.0[facility] HermannHEMATOLOGY 2016-07-13 07:33:009.2[facility] FrwlunxNNEXHHVUCB1258-14-04 07:33:12532Denpsabo SgiqkglVJBKVAZBDS2077-18-97 07:33:0084.9[facility] KsnorjeIEMHMXDQNM7698-48-80 07:33:000.96[facility] RwdxhdxEMKQPSLSKI6569-92-77 07:33:00 Test Item Value Reference Range Interpretation Comments PTT (test code = PTT) 31.9 s 22.9-35.8 Memorial JbqriugPNDQJSSDLH5912-13-69 07:33:00 Test Item Value Reference Range Interpretation Comments PT (test code = PT) 13.0 s 12.0-14.7 [facility] HermannCARDIAC [id number] 22:45:00<0.010[facility] [place] CARDIAC [id number] 22:45:0033[facility] IkmxhcbOFDTPRQCF0315-37-32 22:45:00 35[facility] HermannDRUG [id number] 06:39:00Negative *NA*(07/12/16 12:39 AM) [facility] [id number] 06:39:00Negative *NA*(07/12/16 12:39 AM) [facility] [id number] 06:39:00Negative *NA*(07/12/16 12:39 AM) [facility] [id number] 06:39:00Negative *NA*(07/12/16 12:39 AM) [facility] [id number] 06:39:00See Note *NA*(07/12/16 12:39 AM) [facility] [id number] 06:39:00Negative *NA*(07/12/16 12:39 AM) [facility] [id number] 06:39:00Negative *NA*(07/12/16 12:39 AM) [facility] [id number] 06:39:00Negative *NA*(07/12/16 12:39 AM) [facility] [id number] 06:39:00Negative *NA*(07/12/16 12:39 AM) [facility] [id number] 06:39:00Negative *NA*(07/12/16 12:39 AM) [facility] WftkrahHFMPYVBFVO7068-86-71 06:39:52466Kkdtczix HermannHEMATOLOGY 2016-07-12 06:39:0013.5[facility] MmyybebMXFSBYGOZJ2612-95-24 06:39:009.3[facility] XrhnqwwNZDORKHGNB4348-91-36 06:39:004.46[facility] QlndagbCGOSMJKJTQ4671-25-25 06:39:0012.6[facility] YbxsafbXFLBGODJXI1081-50-99 06:39:0037.4[facility] [place] LKICFYCLXN0751-99-26 06:39:0083.9[facility] ZqgqprcPRRUXTCHXK3276-71-98 06:39:00 9.4[facility] DruemauIXZMMWQNXL0987-51-95 06:39:00 Test Item Value Reference Range Interpretation Comments MCH (test code = MCH) 28.3 pg 27.0-31.0 Memorial BbopwebXLLWJYZDWT0589-87-03 06:39:0033.8[facility] HermannHEMATOLOGY 2016-07-12 06:39:00 Test Item Value Reference Range Interpretation Comments PTT (test code = PTT) 33.7 s 22.9-35.8 Memorial KdwvtfvAPREMUSOOY9219-26-62 06:39:001.02[facility] HermannHEMATOLOGY 2016-07-12 06:39:00 Test Item Value Reference Range Interpretation Comments PT (test code = PT) 13.6 s 12.0-14.7 Memorial [id number] 06:39:005.5[facility] HermannHEMATOLOGY 2016-07-12 06:39:000.6[facility] LyjuklwGHSQJIYVEM0423-84-49 06:39:003.0[facility] KwsdtyiHWRRUOTDOK9307-93-35 06:39:000.1[facility] WxtjpteEXMJSHIXKW1359-99-22 06:39:000.1[facility] ZcejaflROZRFRMIYR9604-60-64 06:39:000.9[facility] [place] [id number] 06:39:0058.7[facility] LcrstkgIQDYRYUEUZ1808-28-80 06:39:00 32.5[facility]orial GwqebgkUPTCTJTQGA5136-02-22 06:39:006.5[facility] HermannHEMATOLOGY 2016-07-12 06:39:001.4[facility] HermannURINE AND DIINH7222-10-53 06:39:001 [facility]annURINE AND [id number] 06:39:00Not Indicated *NA*(07/12/16 12:39 AM)[facility]ann[facility] AND [id number] 06:39:00Clear (07/12/16 12:39 AM)[facility]ann[facility] AND [id number] 06:39:001.011[facility]annURINE AND [id number] 06:39:006.5[facility]annURINE AND [id number] 06:39:00Yellow *NA*(07/12/16 12:39 AM)[facility]ann[facility] AND [id number] 06:39:00Negative (07/12/16 12:39 AM)[facility]ann[facility] AND [id number] 06:39:00Negative *NA*(07/12/16 12:39 AM)[facility] AND STOOL 2016-07-12 06:39:00Negative (07/12/16 12:39 AM)[facility]ann[facility] AND STOOL 2016-07-12 06:39:00Negative (07/12/16 12:39 AM)[facility]annURINE CHEM 2016-07-12 06:39:00Negative (07/12/16 12:39 AM)[facility] HermannBLOOD BANK [id number] 05:50:00Negative (07/11/16 11:50 PM)[facility] HermannCHEM PANEL 2016-07-12 03:20:0093[facility] HermannCHEM TGQKH2804-71-92 03:20:0015.5[facility] HermannCHEM LDZSK6101-44-65 03:20:83390Yecegcjt HermannCHEM FKIIP1928-29-49 03:20:76510Rlgddpoi HermannCHEM QILNM2475-24-24 03:20:000.75[facility] HermannCHEM [id number] 03:20:006[facility] HermannCHEM [id number] 03:20:008.8 [facility] HermannCHEM [id number] 03:20:0026[facility] HermannCHEM PANEL 2016-07-12 03:20:003.5[facility] HermannCHEM [id number] 03:20:78616Hzjffrtm [place]
--- OUTSIDE RECORDS SUMMARY | 2020-06-30 09:16 | XMS REPORT | Continuity of Care Document ---
:1995 Author Organization [facility] Care Team Providers Name Role Phone [facility] Unavailable Un available Problems Problem Status Onset Classification Date Comments Sourc e Date Reported Discharge 07/16/20 07/19/2016 Diagnosis: Acute 16 Lauren theast cervical sprain OTHER Active 07/15/20 [facility] [place] POSSIBLE Active 07/11/20 [facility] MALFUNCTION [employer] 16 Medic al [facility] HEADACHE Active 07/11/[address] Chi[place] Active Problem 09/11/2019 [facility] malformation Neuro (disorder) [place]ari Resolved Problem 09/11/2019 [place]ischer malformation Neuro,M H type II [place] (disorder) [facility] 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) Hydrocephalus Active Problem 09/11/2019 Misch er (disorder) Neuro,[facility] Depressive Resolved Problem 09/11/2019 Mischer disorder Neuro, (disorder) [facility] Simple obesity Active Problem 09/11/2019 Misc her (disorder) Neuro Posttraumatic Resolved Problem 09/11/2019 Misch er stress disorder Neur o, (disorder) [facility] HEADACHE Active [facility] Medications Medication Details Route Status Patient Ordering Order Source Instructions Provider Date oxcarbazepine 150 mg = 1 tab, Active adalid 150 MG Oral PO, BID, # 60 2019 Neuro Tablet tab, 3 [Trileptal] Refill(s), Pharmacy: [facility] 149 Ketorolac 60 mg, Route: No Longer 07/16[facility] IM, Drug form: Active 2015 [facility] INJ, ONCE, Dosing Weight 84.545, kg, Priority: STAT, Start date: 07/15/16 23:21:00 WEAVE ROOM SUPERVISOR, Stop date: 07/15/16 23:21:00 WEAVE ROOM SUPERVISOR Valium 5 mg, Route: No Longer 07/16[facility] IM, Drug form: Active 2015 [facility] INJ, ONCE, Dosing Weight 84.545, kg, Priority: STAT, Start date: 07/15/16 23:21:00 WEAVE ROOM SUPERVISOR, Stop date: 07/15/16 23:21:00 WEAVE ROOM SUPERVISOR Ativan Notes: (Same No Longer [facility] as: Ativan) Active 2015 [facility] nystatin Notes: (Same No Longer [facility] topical 100,000 as:Mycostatin, Active 2015 edical units/g cream Nilstat) For Cent er external use only. Nystatin [id number] 1 appl, Route: Inactive [facility] UNT/ML / TOP, TID, Drug 2015 [facility] Triamcinolone form: CRM, [place] Acetonide 1 Start date: MG/ML Topical 07/13/16 Cream 9:00:00 WEAVE ROOM SUPERVISOR, Duration: 30 day, Stop date: 08/11/16 17:00:00 WEAVE ROOM SUPERVISOR Sodium Chloride 250 mL, 250 Inactive [facility] 0.154 MEQ/ML ml/hr, Infuse 2015 Medic al Injectable Over: 1 hr, [place] Solution Route: IV, 250, Drug form: INJ, ONCE, Priority: STAT, Dosing Weight 84.545 kg, Start date: 07/12/16 16:18:00 WEAVE ROOM SUPERVISOR, Duration: 1 doses or times, Stop date: 07/12/16 16:18:00 WEAVE ROOM SUPERVISOR Promethazine Notes: Do not No Longer [facility] give IV push. Active 2015 Medical (Same as: [place] Phenergan) Docusate Notes: (Same No Longer [facility] as: Colace) (Do Active 2015 Medical Not Crush) [place] sennosides, LONG-TERM Notes: (Same No Longer H [place] as: Senokot) Active 2015 [facility] Saline Flush Notes: (Same No Longer [place] 0.9% as: BD Active 2015 Medical Posiflush) [place] tramadol 50 mg = 1 tab, Active [place] hydrochloride PO, Q4H, PRN 2015 Medic al 50 MG Oral for pain, X 10 [place] Tablet [Ultram] day, # 60 tab, 0 Refill(s) tramadol Notes: Not to [place] Longer [place] hydrochloride exceed Active 2015 Medical 50 MG Oral 400mg/day. [place] Tablet [Ultram] (Same As: Ultram) tramadol 50 mg = 1 tab, Inactive [place] hydrochloride PO, Q4H, PRN 2016 Medic al 50 MG Oral for pain, X 10 Center Tablet [Ultram] day, # 60 tab, 0 Refill(s) senna 8.6 mg 8.6 mg = 1 tab, Active [place] oral tablet PO, Q12H, X 14 2016 Medic al day, # 28 tab, Center 0 Refill(s) Docusate Sodium 100 mg = 1 cap, Active [place] 100 MG Oral PO, Q12H, # 28 2016 Medic al Capsule cap, 0 Center Refill(s) Regular 60 units) No Longer [place] Insulin, Human WASTE: F/P - Active 2015 Medi gerry 100 UNT/ML Black; E - Center Injectable Municipal Trash Solution Bin Stable for 28 days at room temperature Expires in days from D ate Dextrose 50% 25 gm, 50 mL, No Longer [place] Syringe Route: IVP, Active 2015 Medical Drug Form: INJ, Center Dosing Weight 84.545, kg, PRN, PRN Abnormal Lab Result, Start date: 07/11/16 22:18:00 WEAVE ROOM SUPERVISOR, Duration: 30 day, Stop date: 08/10/16 22:17:00 WEAVE ROOM SUPERVISOR Bisacodyl Notes: (Same [place] Longer [place] As: Dulcolax, Active 2015 Medical Bisco-Lax) [place] Saline Flush Notes: (Same No Longer [place] 0.9% as: BD Active 2015 Medical Posiflush) [place] Ondansetron Notes: (Same [place] Long[place] as: Zofran) Active 2015 Medical MEDICATION Center WASTE Product Size: 4 mg Product Wasted: _0__ mg Acetaminophen Notes: Do not No Longer [place] 325 MG / exceed 4gm/day Active 2015 Medical Hydrocodone of Center Bitartrate 10 acetaminophen. MG Oral Tablet (Same as: [place] 325/10) Acetaminophen Notes: (Same No Longer [place] 325 MG / as: [place] Active 2015 Medical Hydrocodone 325/5) Do not Cente r Bitartrate 5 MG exceed 4gm/day Oral Tablet of acetaminophen. Sodium Chloride 1,000 mL, Rate: No Longer [facility] 0.154 MEQ/ML 75 ml/hr, Active 2015 Medical Injectable Infuse over: Center Solution 13.3 hr, Route: IV, Dosing Weight 84.545 kg, Total Volume: 1,000, Start date: 07/11/16 22:18:00 WEAVE ROOM SUPERVISOR, Duration: 30 day, Stop date: 08/10/16 22:17:00 WEAVE ROOM SUPERVISOR Reglan Notes: (Same Inactive [facility] as: Reglan) 2015 [facility] Sodium Chloride 1,000 mL, 1,000 Inactive [facility] 0.154 MEQ/ML ml/hr, Infuse 2015 Medic al Injectable Over: 1 hr, Center Solution Route: IV, 1,000, Drug form: INJ, ONCE, Priority: STAT, Dosing Weight 84.545 kg, Start date: 07/11/16 20:59:00 WEAVE ROOM SUPERVISOR, Duration: 1 doses or times, Stop date: 07/11/16 20:59:00 WEAVE ROOM SUPERVISOR Acetaminophen Notes: Max Inactive [place] acetaminophen 2015 Medical 4000 mg/day (4 Center gm/day). (Same as: Tylenol Extra Strength) Allergies, Adverse Reactions, Alerts Substance Category Reaction Severity Reaction Status Date Comments S ource type Reported penicillins Assertion Drug Active Mi adalid allergy Neuro amoxicillin Assertion Drug Active Mi adalid allergy Neuro Medical Tape Assertion Drug Active M ischer allergy Neuro LaMICtal Assertion Drug Active Misch er allergy Neuro Immunizations No Data Provided for This Section Results Order Name Results Value Reference Date Interpretation Comments Lauren rce Range BODY FLUIDS Protein CSF 34 15 - 45 07/13 [facility] BODY FLUIDS Color CSF Colorless Colorless 07/13 [place] (07/13/16 7:35 AM) [facility] BODY FLUIDS Clarity CSF Clear Clear 07/13 (07/13/16 7:35 AM) [facility] BODY FLUIDS Tube Num CSF [id number] 07/13 [place] (07/13/16 7:35 AM) Medic [facility] BODY FLUIDS RBC CSF 0 0 - 03 07/13 [facility] BODY FLUIDS Supernat CSF Colorless Colorless 07/13 [place] (07/13/16 7:35 AM) Medic al Center BODY FLUIDS WBC CSF 1 0 - 53 07/13 [facility] BODY FLUIDS Glucose CSF 56 45 - 80 07/13 [facility] IMMUNOLOGY PE Interp CSF CSF 07/13 [place] [facility] resis did not reveal evidence of an oligoclona l process in the CAR PICK UP DRIVER. The CSF IgG index is within the [...] concur with the resident's interpreta tion. CPT: 85270-NV IMMUNOLOGY Description The gel 07/13 [facility] CSF demonstr [facility] appropriat e resolution of the main protein bands. The gamma region shows continuous distributi on of proteins both in the CSF and in the serum. No oligoclona l bands are detected. IMMUNOLOGY IgG (CPE) 1010 694 - 1618 07/13 [facility] IMMUNOLOGY Alb (CPE) 4100.0 3400.0 - 07/13 [facility] 5000.0 [facility] IMMUNOLOGY IgG Lvl CSF 1.7 2.0 - 4.0 07/13 [place] /2015 [facility] IMMUNOLOGY Alb CSF (CPE) 14.7 14.0 - 07/13 [place] 25.0 [facility] IMMUNOLOGY IgG Index 0.5 0.3 - 0.7 07/13 [facility] CHEM PANEL eGFR 128 07/13 Result Comment: The Medical eGFR is Center calculated using the CKD-EPI [...] Calcium Lvl 8.8 8.5 - 10.5 07/13 [facility] CHEM PANEL CO2 23 24 - 32 07/13 [facility] CHEM PANEL Chloride Lvl 108 95 - 109 07/13 [facility] CHEM PANEL Creatinine 0.61 0.50 - 07/13 [place] Lvl 1.40 [facility] CHEM PANEL Sodium Lvl 142 135 - 145 07/13 [facility] CHEM PANEL BUN 7 7 - 22 07/13 [facility] CHEM PANEL Potassium Lvl 3.9 3.5 - 5.1 07/13 [facility] CHEM PANEL Glucose Lvl 88 70 - 99 07/13 [facility] CHEM PANEL AGAP 14.9 10.0 - 07/13 20.0 [facility] HEMATOLOGY Lymphocytes 37.9 20.0 - 07/13 40.0 [facility] HEMATOLOGY Segs 52.1 45.0 - 07/13 [place] 75.0 [facility] HEMATOLOGY Monocytes 7.3 2.0 - 12.0 07/13 [facility] HEMATOLOGY Basophils 0.8 0.0 - 1.0 07/13 [facility] HEMATOLOGY Eosinophils 1.9 0.0 - 4.0 07/13 [facility] HEMATOLOGY Segs-Bands # 3.8 1.5 - 8.1 07/13 [facility] HEMATOLOGY Eosinophils # 0.1 0.0 - 0.5 07/13 [facility] HEMATOLOGY Monocytes # 0.5 0.0 - 0.8 07/13 [facility] HEMATOLOGY Lymphocytes # 2.7 1.0 - 5.5 07/13 [facility] HEMATOLOGY Basophils # 0.1 0.0 - 0.2 07/13 [facility] HEMATOLOGY RBC 4.53 4.20 - 07/13 [place] 5.40 [facility] HEMATOLOGY WBC 7.2 3.7 - 10.4 07/13 [facility] HEMATOLOGY Hct 38.5 36.0 - 07/13 [place] 48.0 [facility] HEMATOLOGY Hgb 13.0 12.0 - 07/13 [place] 16.0 /2015 [facility] HEMATOLOGY MCHC 33.9 32.0 - 07/13 [place] 36.0 /2015 [facility] HEMATOLOGY MCH 28.8 27.0 - 07/13 [place] 31.0 /2015 [facility] HEMATOLOGY RDW 14.0 11.5 - 07/13 [place] 14.5 /2015 [facility] HEMATOLOGY MPV 9.2 7.4 - 10.4 07/13 [facility] HEMATOLOGY Platelet 283 133 - 450 07/13 [facility] HEMATOLOGY MCV 84.9 80.0 - 07/13 [place] 98.0 /2015 [facility] HEMATOLOGY INR 0.96 0.85 - 07/13 [place] 1.17 /2015 [facility] HEMATOLOGY PTT 31.9 22.9 - 07/13 [place] 35.8 /2015 [facility] HEMATOLOGY PT 13.0 12.0 - 07/13 [place] 14.7 /2015 [facility] CARDIAC Troponin-T <0.010 0.000 - 07/12 [facility] ENZYMES 0.100 /2015 [facility] CARDIAC Total CK 33 12 - 191 07/12 [facility] ENZYMES /2015 [facility] MYOGLOBIN Myoglobin 35 25 - 72 07/12 [facility] DRUG SCREEN U Phencyc Scr Negative Negative 07/12 [place] *NA* Medical (07/12/16 12:39 AM) Cent er DRUG SCREEN U Opiate Scr Negative Negative 07/12 [place] *NA* Medical (07/12/16 12:39 AM) Cent er DRUG SCREEN U Propoxyph Negative Negative 07/12 [place] Scr *NA* Medical (07/12/16 12:39 AM) Cent er DRUG SCREEN U Methadone Negative Negative 07/12 [place] Scr *NA* Medical (07/12/16 12:39 AM) Cent er DRUG SCREEN UDS Note See Note 07/12 [place] *NA* Medical (07/12/16 12:39 AM) Cent er DRUG SCREEN U Benzodia Negative Negative 07/12 [place] *NA* Medical (07/12/16 12:39 AM) Cent er DRUG SCREEN U Amph Scr Negative Negative 07/12 [place] *NA* [place] (07/12/16 12:39 AM) Cent er DRUG SCREEN U Cannab Scr Negative Negative 07/12 [place] *NA* Medical (07/12/16 12:39 AM) Cent er DRUG SCREEN U Cocaine Scr Negative Negative 07/12 [place] *NA* Medical (07/12/16 12:39 AM) Cent er DRUG SCREEN U Tori Scr Negative Negative 07/12 [place] *NA* [place] (07/12/16 12:39 AM) Cent er HEMATOLOGY Platelet 306 133 - 450 07/12 [facility] HEMATOLOGY RDW 13.5 11.5 - 07/12 [place] 14.5 [facility] HEMATOLOGY MPV 9.3 7.4 - 10.4 07/12 [facility] HEMATOLOGY RBC 4.46 4.20 - 07/12 [place] 5.40 /2015 [facility] HEMATOLOGY Hgb 12.6 12.0 - 07/12 [place] 16.0 [facility] HEMATOLOGY Hct 37.4 36.0 - 07/12 [place] 48.0 [facility] HEMATOLOGY MCV 83.9 80.0 - 07/12 [place] 98.0 /2015 [facility] HEMATOLOGY WBC 9.4 3.7 - 10.4 07/12 [facility] HEMATOLOGY MCH 28.3 27.0 - 07/12 [place] 31.0 [facility] HEMATOLOGY MCHC 33.8 32.0 - 07/12 [place] 36.0 [facility] HEMATOLOGY PTT 33.7 22.9 - 07/12 [place] 35.8 /2015 [facility] HEMATOLOGY INR 1.02 0.85 - 07/12 [place] 1.17 [facility] HEMATOLOGY PT 13.6 12.0 - 07/12 [place] 14.7 [facility] HEMATOLOGY Segs-Bands # 5.5 1.5 - 8.1 07/12 as [facility] HEMATOLOGY Monocytes # 0.6 0.0 - 0.8 07/12 [facility] HEMATOLOGY Lymphocytes # 3.0 1.0 - 5.5 07/12 Te [facility] HEMATOLOGY Basophils # 0.1 0.0 - 0.2 07/12 [facility] HEMATOLOGY Eosinophils # 0.1 0.0 - 0.5 07/12 Te [facility] HEMATOLOGY Basophils 0.9 0.0 - 1.0 07/12 [facility] HEMATOLOGY Segs 58.7 45.0 - 07/12 [place] 75.0 [facility] HEMATOLOGY Lymphocytes 32.5 20.0 - 07/12 [place] 40.0 [facility] HEMATOLOGY Monocytes 6.5 2.0 - 12.0 07/12 [facility] HEMATOLOGY Eosinophils 1.4 0.0 - 4.0 07/12 [place] [facility] URINE AND UA WBC 1 0 - 5 07/12 [facility] STOOL [facility] URINE AND Micro? Not Indicated 07/12 [facility] *NA* /2015 Medical (07/12/16 12:39 AM) Cent er URINE AND UA <=1.0 0.1 - 1.0 07/12 [facility] Urobilinogen mg/dL [facility] URINE AND UA Protein Negative Negative 07/12 [facility] STOOL mg/dL mg/dL [facility] URINE AND UA Glucose Negative Negative 07/12 [facility] mg/dL mg/dL [facility] URINE AND UA Turbidity Clear Clear 07/12 [facility] (07/12/16 12:39 AM) [facility] URINE AND UA Spec Grav 1.011 <=1.030 07/12 [facility] URINE AND UA pH 6.5 5.0 - 8.0 07/12 [facility] URINE AND UA Color Yellow Yellow 07/12 [facility] *NA* /2015 Medical (07/12/16 12:39 AM) Cent er URINE AND UA Sq Epi Moderate Few /LPF 07/12 [facility] STOOL /LPF /2015 [facility] URINE AND UA Leuk Est Negative Negative 07/12 [facility] (07/12/16 12:39 AM) [facility] URINE AND UA Ketones Negative Negative 07/12 [facility] STOOL mg/dL mg/dL [facility] URINE AND UA Bili Negative Negative 07/12 [facility] STOOL *NA* /2015 Medical (07/12/16 12:39 AM) Cent er URINE AND UA Blood Negative Negative 07/12 [facility] (07/12/16 12:39 AM) [facility] URINE AND UA Nitrite Negative Negative 07/12 [facility] STOOL (07/12/16 12:39 AM) Medi g[facility] Center URINE CHEM U Preg Negative Negative 07/12 [place] (07/12/16 12:39 AM) [facility] BLOOD BANK Antibody Scrn Negative 07/12 [place] RESULTS (07/11/16 11:50 PM) [facility] BLOOD BANK ABO/Rh A POS 07/12 [place] RESULTS [facility] CHEM PANEL Glucose Lvl 93 70 - 99 07/12 [facility] CHEM PANEL AGAP 15.5 10.0 - 07/12 [place] 20.0 [facility] CHEM PANEL eGFR 113 07/12 Result Comment: [facility] eGFR is Center calculated using [...] Sodium Lvl 142 135 - 145 07/12 [facility] CHEM PANEL Creatinine 0.75 0.50 - 07/12 [facility] Lvl 1.40 [facility] CHEM PANEL BUN 6 7 - 22 07/12 [facility] CHEM PANEL Calcium Lvl 8.8 8.5 - 10.5 07/12 [place] [facility] CHEM PANEL CO2 26 24 - 32 07/12 [facility] CHEM PANEL Potassium Lvl 3.5 3.5 - 5.1 07/12 [place] [facility] CHEM PANEL Chloride Lvl 104 95 - 109 07/12 [place] [facility] Pathology Reports No Data Provided for This Section Diagnostic Reports Report Value Date Source Brain shunt series Clinical Indication:21 years Female with Pain and swelling 07/15/2016 [place] DX Comparison: Shunt study 07/12/2016 FINDINGS: Radiographs of the right [employer] shunt obtained from the skull to the abdomen. Unchanged appearance of the [employer] shunt, which goes from the right lateral ventricle along the right neck, traverses the right upper chest to the left lower chest, and terminates in the left upper quadrant. No discontinuity of the [employer] shunt. An orphaned [employer] shunt catheter of the right chest is again noted. IMPRESSION: Unchanged appearance of righ t [employer] shunt. No discontinuity of the shunt catheter or other significant radiographic abnormality. Brain w/wo contrast Exam: MRI brain without and with contrast. 1 09/12/2015 [facility] MRI Exam: CSF flow study. Center INDICATION: Headache post LP. COMPARISON: CT July 13, 2016. TECHNIQUE: Multiecho multipl jose MR sequences of the brain are obtained pre and post administration of 18 cc MultiHance. CSF flow study was performed. Discussion: No restricted di ffusion. 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 Post operative changes of suboccipital decompression are evident. No intracranial hemorrhage. Areas of stenogyria in the bilateral parietal and occipital lobes are evident. No abn ormal enhancement of the bra in parenchyma or leptomeninges is detected. Mild right parietal convexity dural thickening and enhancement are evident. Right frontoparietal shunt c atheter is redemonstrated with stable ventricular size. FLAIR hyperintense signal along the periventricular white matter consistent with gliotic changes. CSF flow study shows flow an teriorly and posteriorly at the level of the craniocervical junction with synchronous flow of CSF. IMPRESSION: 1. Stigmata of Chiari II mal formation with shunted ventricular system. No evidence of acutely raised intracranial pressure is identified, however comparison with available outside studies to assess any change from baseline would be helpful. 2. No abnormal parenchymal o r leptomeningeal enhancement is detected. Nonspecific right parietal convexity dural thickening and enhancement. 3. CSF flow anteriorly and p osteriorly at the level of the craniocervical junction is evident. Postoperative changes of suboccipital decompression are evident. Brain wo contrast Exam: MRI brain without and with contrast. [facility] MRI Exam: CSF flow study. Center INDICATION: Headache post LP. COMPARISON: CT July 13, 2016. TECHNIQUE: Multiecho multipl jose MR sequences of the brain are obtained pre and post administration of 18 cc MultiHance. CSF flow study was performed. Discussion: No restricted di ffusion. 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 Post operative changes of suboccipital decompression are evident. No intracranial hemorrhage. Areas of stenogyria in the bilateral parietal and occipital lobes are evident. No abn ormal enhancement of the bra in parenchyma or leptomeninges is detected. Mild right parietal convexity dural thickening and enhancement are evident. Right frontoparietal shunt c atheter is redemonstrated with stable ventricular size. FLAIR hyperintense signal along the periventricular white matter consistent with gliotic changes. CSF flow study shows flow an teriorly and posteriorly at the level of the craniocervical junction with synchronous flow of CSF. IMPRESSION: 1. Stigmata of Chiari II mal formation with shunted ventricular system. No evidence of acutely raised intracranial pressure is identified, however comparison with available outside studies to assess any change from baseline would be helpful. 2. No abnormal parenchymal o r leptomeningeal enhancement is detected. Nonspecific right parietal convexity dural thickening and enhancement. 3. CSF flow anteriorly and p osteriorly at the level of the craniocervical junction is evident. Postoperative changes of suboccipital decompression are evident. Brain wo contrast CT EXAM: CT HEAD WITHOUT CONTRAST 07/13/2016 [facility] DATE: 07/13/2016 INDICATION: 21 years old Fem evelyn patient with history of [employer]OYEE shunt placement, now complaining of headache. TECHNIQUE: Multiple axial im ages were obtained through the head from vertex to the skull base. Axial bone algorithm reconstruction images are provided. COMPARISON: Prior CT Scan of the head dated 06/18 147 AM WEAVE ROOM SUPERVISOR DISCUSSION: Again identified is a right parietal approach [employer] shunt catheter with distal tip lies within the right lateral ventricle. Since prior study there has been no interval significant change in ventricular system. Ventricles are adequately decompressed. 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 There is fat density lesion/lipoma measu ring within the quadrigeminal cistern. No definite new parenchymal abnormality or new h emorrhage is identified. There is no significant midline shift. Overall ventricles are stable in size and config uration. No interval significant adve rse changes in visualized paranasal sinuses, orbits, mastoid cavities and calvarium. IMPRESSION: 1. Overall no significant interval adverse interiano e. 2. Stable right parietal vania yadav [employer] shunt catheter with adequately decompressed ventricular system. 3. 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 Chest 1view DX EXAM: XR CHEST 1 VIEW 07/12/2016 [facility] DATE: 07/12/2016 4:10 [address] SUPERVISOR Debra ter INDICATION: Chest pain COMPARISON: Yesterday TECHNIQUE: AP chest FINDINGS: Abandoned and calc ified discontinuous [employer] shunt tubing is redemonstrated over the right lower neck and anterior chest, coursing over the upper abdomen. Additional [employer] shunt tubing is seen over t he right neck, extending ove r the midline chest and left upper quadrant; distal tubing is not well seen. Stable cardiomediastinal silhouette. No new pulmonary or pleural based abnormalities. IMPRESSION: No significant change. Brain shunt series EXAM: XR SHUNT SERIES 07/12/2016 [facility] Center DATE: 07/12/2016 7:03 AM WEAVE ROOM SUPERVISOR INDICATION: Headache(s) ADDITIONAL INFORMATION: None. COMPARISON: Brain CT from the same day TECHNIQUE: 6 images of the shunt catheter were o btained. FINDINGS: A right-sided prog rammable shunt catheter is present with the tip terminating just to the right of midline. The shunt courses over the right neck and over the midline anterior thorax without d efinitive evidence of discon tinuity, kinking, or fracture. The catheter is looped within the upper left abdomen with the tip in the right upper quadrant. There is an orphaned shunt catheter also along t he right chest and left abdo men. Incidental finding of a limbus vertebrae at the L3 level. IMPRESSION: 1. Right programmable [employer] shunt with unremarkabl e appearance. 2. There is an orphaned arlyn nt catheter along the right thorax and left abdomen. Skull 1 view DX EXAM: XR SKULL 1 VIEW 07/12/2016 [facility] DATE: 07/12/2016 7:03 AM WEAVE [address] SUPERVISOR Debra ter INDICATION: Headache(s) COMPARISON: None TECHNIQUE: AP radiographs of the skull with 2 i mages DISCUSSION: A delta valve sh unt catheter is present with the tip of the delta aligned between the 2 radiopaque markers. The visualized portions of the catheter appear intact. IMPRESSION: Delta valve in place Brain wo contrast CT EXAM: CT HEAD WITHOUT CONTRAST 07/12/2016 [facility] DATE: 07/12/2016 147 AM WEAVE ROOM SUPERVISOR Cent er INDICATION: 21 years old Fem evelyn patient with history of [employer] shunt placement, now complaining of headache. TECHNIQUE: Multiple axial im ages were obtained through the head from vertex to the skull base. Axial bone algorithm reconstruction images are provided. COMPARISON: Prior outside hospital CT Scan of th e head dated 07/11/2016 DISCUSSION: Again identified is a right parietal approach [employer] shunt catheter with distal tip lies within the right lateral ventricle. Since prior study there has been no interval significant change in ventricular system. Ventricles are adequately decompressed. 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 There is fat density lesion/ lipoma measuring up to 20 x 30 x 27 mm (AP x TV x CC) within the quadrigeminal cistern. No definite new parenchymal abnormality or new h emorrhage is identified. There is no significant midline shift. Overall ventricles are stable in size and config uration. No interval significant adve rse changes in visualized paranasal sinuses, orbits, mastoid cavities and calvarium. IMPRESSION: 1. Overall no significant interval adverse interiano e. 2. Stable right parietal vania yadav [employer] shunt catheter with adequately decompressed ventricular system. 3. 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 Chest 1view DX EXAM: XR CHEST 1 VIEW 07/11/2016 [facility] DATE: 07/11/2016 2230 hours Cent er INDICATION: Mass COMPARISON: Chest radiograph 07/11/2016 TECHNIQUE: AP chest FINDINGS: Lines and tubes: Abandoned a nd calcified discontinuous [employer] shunt tubing is redemonstrated over the right lower neck and anterior chest, coursing over the upper abdomen. Additional [employer] shunt tubing is seen over the right neck, extend ing over the midline chest and left upper quadrant; distal tubing is not well seen. Lungs and pleura: No focal c onsolidation, pleural effusion, or pneumothorax is identified. Heart and mediastinum: The h eart size is normal for technique. The mediastinal contours are normal. Bones: No acute bony abnormality is identified. IMPRESSION: 1. No acute cardiopulmonary abnormality. 2. Partially visualized [employer] shunt tubing as disc ussed above. Consultation Notes No Data Provided for This Section Discharge Summaries No Data Provided for This Section History and Physicals No Data Provided for This Section Vital Signs Vital Sign Value Date Comments Source Systolic (mm Hg) 105 07/27/2019 [facility] Ancelmo ro Diastolic (mm Hg) 69 07/27/2019 [facility] Ne uro Heart Rate 85 07/27/2019 [facility] Neuro Respitory Rate 16 07/27/2019 [facility] Neuro Height 160.02 cm 07/27/2019 [facility] Neuro Weight 85.455 07/27/2019 [facility] Neuro BMI Calculated 33.37 07/27/2019 [facility] Neuro Respitory Rate 16 07/16/2016 [facility] Systolic (mm Hg) 134 07/16/[facility] Diastolic (mm Hg) 63 07/16/[address] Temperature Oral (F) 98.2 F 07/16/2016 [facility] Temperature Oral (F) 98.6 F 07/16/2016 [facility] Respitory Rate 14 07/16/2016 [facility] Diastolic (mm Hg) 81 07/16/[address] Systolic (mm Hg) 131 07/16/2016 [facility] Weight 84.545 07/16/2016 [facility] Respitory Rate 20 07/16/2016 [facility] Heart Rate 110 07/16/2016 [facility] Temperature Oral (F) 98.8 F 07/16/2016 [facility] BMI Calculated 35.22 07/16/2016 [facility] Height 154.94 cm 07/16/2016 [facility] Systolic (mm Hg) 126 07/16/2016 [facility] Diastolic (mm Hg) 87 07/16/[address] Respitory Rate 12 07/14/2016 [facility] Center Temperature Oral (F) 97.9 F 07/14/2016 [facility] Systolic (mm Hg) 111 07/14/2016 [facility] Center Diastolic (mm Hg) 72 07/14/2016 [facility] Center Respitory Rate 16 07/14/2016 [facility] Center Systolic (mm Hg) 117 07/14/2016 [facility] Center Diastolic (mm Hg) 79 [facility] Resp[facility] Rate 13 07/14/2016 [facility] Systolic (mm Hg) 110 07/14/2016 [facility] Diastolic (mm Hg) 61 07/14/2016 [facility] Heart Rate 84 07/14/2016 [facility] Heart Rate 75 07/14/2016 [facility] Heart Rate 81 07/14/2016 [facility] Temperature Oral (F) 98.0 F 07/13/2016 [facility] Temperature Oral (F) 98.1 F 07/13/2016 [facility] Weight 84.545 07/12/2016 [facility] Weight 84.545 07/12/2016 [facility] Height 152.4 cm 07/12/2016 [facility] BMI Calculated 36.4 07/12/2016 [facility] Encounters Location Location Encounter Encounter Reason Attending ADM DC Stat us Source Details Type Number For Provider Date Date Visit [facility] [id number] Alon 07/12 07/14 [facility] Brianne /2015 [facility] [id number] Verona 07/16 07/16 [facility] Juliet /2015 [facility] Outpatient [id number] German 07/27 [facility] Outpatient [id number] German 07/27 07/28 [facility] [id number] German 08/12 Active [facility] Ambulatory [id number] German 08/12 08/12 [facility] [id number] German 09/08 Active [facility] Ambulatory [id number] German 09/08 09/08 [facility] [id number] German 09/09 Active [facility] [id number] German 09/09 09/09 [facility] Procedures Procedure Code Date Perfomer Comments Source Creation of [employer]OYEE [id number] [facility] Assessment and Plan Assessment and Plan Date Source Extracted from:Title: Neurology consult note 07/14/2016 [facility] Author: Keiko Del Rosario MD Date: 07/13/16 General Neurology Consult Referring physician (name/service): Neurosurgery Referring team contact number: Time of consult: 1700 Consulting attending: Dr Mason Reason for consult: possible seizure Chief Complaint: Headache HISTORY OF PRESENT ILLNESS: Hisory obtained from: Patient/ mother History provided reliable This is a 21 y/o female with PMH of 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 She was getting treatment for seizure by age 16 when she stopped taking by herself and she did not have any more episode. Since past 2 days she has had headache, with phtophobia and nausea , BL occipital progressive , dull/stabbing character. Patient usually gets aspirin . her last headache was few months ago , her last [employer] shunt revision was 10 years ago. Britta osorio reported that has has similar headache 10 years ago. Review of Systems: GEN: No fever, chills, night sweats, weight loss, fatigue EYES: double vision, ENT: No decreased hearing, nose bleeding, nasal congestion, sore throat CARDIO: No chest pain, palpitation, orthopnea, dyspnea on ex ertion PULM: No shortness of breath, cough, wheezing, asthma, sputu m, hemoptysis GI: No nausea, vomiting, diarrhea, constipation, Abdominal P ain : No frequency, burning, hematuria, nocturia, hesitancy NEURO: As per HPI ENDO: No weight loss, weight gain, heat intolerance, cold in tolerance SKIN: No rash, lesion, itching MUSC: No joint pain, muscle pain, arthritis, back pain Past Medical History: Seizure disorder Agenesis of corpus collosum, Chiari II, s/p [employer] shunt Past Surgical History: [employer] shunt Family History: Noncontirbutory Social History: smokes 1 pack in 3 days , denies alcohol Medications: vitamin Allergies: NKDA Physical Exam: APPEARANCE - Active, alert, well developed, well nourished HEAD - Normocephalic and atraumatic EYES - Pupil equal and reactive to light PHARYNX - Mouth pink, mucous membranes moist. No tonsillar e nlargement NECK - Supple, thyroid non-palpable, no significant adenopat hy LUNGS - Clear to auscultation, no rales or rhonchi CV - Rate rhythm regular, no murmur, equal pulses bilaterall y. ABDOMEN - Soft, non tender, with normal bowel sounds. SPINE - Straight, no defects, no scoliosis SKIN: Clear, no rashes NEUROLOGY: Mental Status: Patient is awake alert, f ully oriented to person, place, time and . Speech/language: Naming, Repetition, comprehension and fluen cy are intact. Cranial Nerves: EOMI, visual grant full , pupils mm briskly reactive bilaterally, facial sensation intact, face symmetric, hearing intact, tongue/uvula/soft palate midline, normal sternocleidomastoid an d trapezius muscle strength. No evidence of tongue atrophy o r fibrillations, Motor - R UE- Deltoid 5/5, Triceps 5/5, Biceps 5/5, Wrist flexion 5/5, Wrist extension 5/5 L UE- Deltoid 5/5, Triceps 5/5, Biceps 5 /5, Wrist flexion 5/5, Wrist extension 5/5 R LE- 4/5 LLE- 4/5 Tone is normal Sensation- intact to pinprick, temperatu re, vibration, and proprioception and equal bilaterally Coordination: FTN wnl, heel to espinoza WNL with no signs of dys metria. Gait- deferred Reflexes- R Triceps2+, Biceps 2+, Brachioradialis 2+, Patell ar 2+, Ankle 2+ L Triceps2+, Biceps 2+, Brachioradialis 2+, Patellar 2+, Ank le 2+ Toes down going bilaterally Labs: no leukocytosis Diagnostic Tests CT- Brain stable [employer] shunt, nothing to compare MRI Brain: not available Assessment: 21 y/o female with PMH of agenesis of co rpus collosum, chiari II s/p [employer] shunt , h/o seizure presented with BL ocipital headache for past 2 days with photophobia and nausea. neurology consulted for se izure evaluation. On exam has no visual field defect , mild LE weakness BL. Patient was evalauted with ophthalmology , neurosurgery also is evaluating for headache cause which can be due to [employer] shunt mal function , although no ventriculomegaly for now but will rep eat CT in AM Plan: Regarding seizure standpoaint, patient d oes not look like to have seizure in this episode. but it is worthed to do routine EEG. HEadache seems to be due to [employer] shunt mal function , managed per neurosurgery team Neurology will follow - We recommend the patient be admitted for observation under neurosurgery The case was discussed with the Neurolog y Consult attending ___Marlon . Thank you for this interesting consult, the neurology consult team will continue to follow with you. Please page [phone] should you have any queries or concerns. Keiko Del Rosario MD Resident PGY-2 [facility] Neurology Pager number [phone] ADDENDUM In addition to the information provided above, patient mentioned about her pre- seizure aura which is "dream like condition". She has been diagnosed previously with migraine and seizures (was o n depakote, allergic to Lamictal). 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 For the reason of her crytpic p regnancy, she possibly stopped the AEDs by herself. [...] 24 Hr Tmax: 98.1F (36.72c) at 07/13 08:0 0 Vital Signs are the last 5 in the past 48 hours. Scheduled Meds (4):docusate, nystatin-tr iamcinolone topical (nystatin- triamcinolone topical cream), senna, sodium chloride (Saline Flush 0.9%) Unscheduled Meds: None PRN Meds (13):Dextrose 50% in Water IV ( Dextrose 50% Syringe), Dextrose 50% in Water IV (Dextrose 50% Syringe), Dextrose 50% in Water IV (Dextrose 50% Syringe), Insulin regular (insulin regular 100 unit s/mL human recombinant), Insulin regular (insulin regular 100 units/mL human recombinant), Insulin regular (insulin regular 100 units/mL human recombinant), acetaminophen-hydrocodone (acetaminophen-hydr ocodone 325 mg-5 mg oral tablet), acetam inophen-hydrocodone (acetaminophen- hydrocodone 325 mg-10 mg oral tablet), bisacodyl, ondansetron, promethazine, sodium chloride (Saline Flush 0.9%), tramadol (Ultram 50 mg oral tablet) One Time Meds (1):(Completed) Sodium Chl oride 0.9% IV (Sodium Chloride 0.9% (Bolus) IV) Continuous Infusions (1):sodium chloride 0.9% 1000 ml INJ 1, 000 mL Recommendations: - MRI Brain w and wo - EEG (CORINE) - If EEG negative, no AEDs required at this point. Thank you for this interesting consult, the neurology consult team will continue to follow with you. Please page [phone] should you have any queries or concerns. ---- Dwight Metcalf MD, MPH. PGY-1 Psychiatry [employer] Neuro Consult Service [email or web address] Pager [phone] Neurology Attending Physician Statement: The patient was seen and examined by me on 07/13/2016 with the resident, Dr. Metcalf and I agree with the History/Exam/Medical Decision Making document. Hx: 21 yo lady with agenesis of CC, jack ri II s/p VPS, hx of seizure ( self dc meds-Depakote at age 16) p/w headache, nausea, photophobia for 2-3 days. her seizure like episode described as dr griffith like stage with no LOC, last 30 sec to 10 min, frequency once a day, trigger stress at work, some headache and tiredness after these episode of note: She reports a skin rash from La mictal in the past. reports hx of migraine headache and being on Imitrex in the past. on exam, she appeared comfortable, not i n pain, but sensetive to light, no focal weakness was detected, however states she needs a walker for ambulation, she was able to swimming professor her toes and heels with no assist, Romberg negative. Reflexes symmetric and normal. she had one of her dream like state epis ode during exam, she covered her face and eyes with both hands, she was able to answer oreintation questions during the episode and then continued with our conversation. she reports being for 73 weeks (cryptogenic per patient) , feels the baby movement and also felt this and enabling her. she is getting her regular mensturation and t est is negative. She believes she is pre gnant since her miscarrage at 9 weeks in April 2015, mother at bedside but this is the first time she is seeing her over the last year due to her rest riction. Mother reports significant weight gain and depressi on. Impression: needs to r/o seizure and pos t ictal headache, needs outpatient psychiatrist help with cognitive behavior therapy for depression and pseudocyesis( mother is agreed) Plan: spot EEG to look for epiletiform d ischarges, if negative would suggest EEG monitoring unit admission in order to capture her episodes ( dream like state) and further characterization. Given her false beliefs, and c hildbearing age would not recommend any prophylactic medication at this point. Danyel Schneider MD [employer] [facility]. Pager:[phone] Plan of Care No Data Provided for This Section Social History Social History Date Source Social History TypeResponse 07/27/2019 [facility] Smoking Status Current every day smoker; Type: Cigarett es; Ready to change: No; Concerns about tobacco use in household: No; Exposure to Tobacco Smoke None; Cigarette Smoking Last 365 Days Yes; Reg Smoking Cessation Counseling No entered on: 07/27/19 Social History TypeResponse 07/16/2016 [facility] Smoking Status Reg Smoking Cessation Counseling No; Cur rent every day smoker; Type: Cigarettes; Ready to change: No; Concerns about tobacco use in household: No; Exposure to Tobacco Smoke None; Cigarette Smoking Last 365 Days Yes Social History TypeResponse 07/16/2016 [facility] Smoking Status Reg Smoking Cessation Counseling No; Cur rent every day smoker; Type: Cigarettes; Ready to change: No; Concerns about tobacco use in household: No; Exposure to Tobacco Smoke None; Cigarette Smoking Last 365 Days Yes Family History No Data Provided for This Section Advance Directives No Data Provided for This Section Functional Status No Data Provided for This Section
[2020-06-30 09:55] LABS: Urine Blood TRACE (NEG); Urine Glucose NEGATIVE (NEG); Urine Protein NEGATIVE (NEG)
[2020-06-30 10:06] LABS: Urine Bacteria 20-50 /HPF (<20); Urine Culture Reflex Order NOT NEEDED; Urine Mucus MOD /HPF (NONE SEEN); Urine RBC <5 /HPF (NONE SEEN)
[2020-06-30 10:32] LABS: Absolute Lymphocytes (CBC) 1.7 K/uL (0.7-4.9); Basophils % 0.9 % (0-1.3); Hematocrit 39.3 % (36.0-45.0); Lymphocytes % 23.4 % (15.3-44.8); MPV 8.7 fL (7.6-11.3); RBC Red Blood Cell Count 4.61 M/uL (3.86-4.86)
[2020-06-30 10:47] LABS: BUN Blood Urea Nitrogen 12 mg/dL (7-18); Bicarbonate 24 mmol/L (21-32); Glucose Level 96 mg/dL (74-106); Potassium 3.8 mmol/L (3.5-5.1); Sodium Level 141 mmol/L (136-145)
[2020-06-30 10:50] LABS: HCG, Quantitative < 1 mIU/mL (1-3)
--- NOTE | 2020-06-30 10:55 | EDPHYS ---
Physician Documentation [facility] Name: Shanna Estrella Age: 25 yrs Sex: Female : 1995 Arrival Date: 06/30/2020 Time: : Bed 6 Private MD: ED Physician Darius Tam HPI: 06/30 09:51 This 25 yrs old Female presents to ER via Ambulatory with complaints of pm1 Possible and Diarrhea. 09:51 Associated signs and symptoms: Pertinent positives: diarrhea, Increased urination, pm1 Pertinent negatives: abdominal pain, chest pain, fever, shortness of breath, sore throat, vomiting, vaginal bleeding, vaginal discharge. Patient presents to the ER with complaints of possible and diarrhea. Patient took home urine test on 06/16 that was positive. She has been taking home tests daily since then and they are negative. She is concerned that she might be . She has had diarrhea for the past 2 weeks and increased urination for the past 3 days. 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 - Social history:: Smoking status: Patient reports the use of cigarette tobacco products, Pt states "I haven't smoked since the positive test". ROS: 09:51 Constitutional: Negative for fever, chills, and weight loss, Neck: Negative for injury, pm1 pain, and swelling, Cardiovascular: Negative for chest pain, palpitations, and edema, Respiratory: Negative for shortness of breath, cough, wheezing, and pleuritic chest pain. 09:51 Back: Negative for injury and pain. 09:51 MS/Extremity: Negative for injury and deformity, Skin: Negative for injury, rash, and discoloration, Neuro: Negative for headache, weakness, numbness, tingling, and seizure. 09:51 Abdomen/GI: Positive for diarrhea, Negative for nausea and vomiting, vomiting, constipation. 09:51 : Positive for urinary frequency, Negative for flank pain, burning with urination, difficulty urinating, vaginal bleeding, vaginal discharge, vaginal itching. Exam: 09:51 Constitutional: This is a well developed, well nourished patient who is awake, alert, pm1 and in no acute distress. Head/Face: Normocephalic, atraumatic. Chest/axilla: Normal chest wall appearance and motion. Nontender with no deformity. No lesions are appreciated. Cardiovascular: Regular rate and rhythm with a normal S1 and S2. No gallops, murmurs, or rubs. Normal PMI, no JVD. No pulse deficits. Respiratory: Lungs have equal breath sounds bilaterally, clear to auscultation and percussion. No rales, rhonchi or wheezes noted. No increased work of breathing, no retractions or nasal flaring. 09:51 Back: No spinal tenderness. No costovertebral tenderness. Full range of motion. Skin: Warm, dry with normal turgor. Normal color with no rashes, no lesions, and no evidence of cellulitis. MS/ Extremity: Pulses equal, no cyanosis. Neurovascular intact. Full, normal range of motion. 09:51 Abdomen/GI: Inspection: abdomen appears normal, Palpation: abdomen is soft and non-tender, in all quadrants, mass, is not appreciated. 09:51 Neuro: Exam negative for acute changes, Orientation: is normal, Mentation: is normal, Motor: moves all fours. Vital Signs: 09:17 Weight 79.83 kg (R); Height 5 ft. 0 in. (152.40 cm) (R); Pain 0/10; aa5 09:28 BP 105 / 81; Pulse 81; Resp 17; Temp 98.2; Pulse Ox 100% ; rb3 10:25 BP 119 / 88; Pulse 78; Resp 16; Pulse Ox 100% ; rb3 11:30 BP 121 / 79; Pulse 81; Resp 17; Temp 98.5; Pulse Ox 100% ; bp 09:17 Body Mass Index 34.37 (79.83 kg, 152.40 cm) aa5 MDM: 09:22 Patient medically screened. pm1 09:57 Data reviewed: vital signs. Data interpreted: Pulse oximetry: on room air is 100 %. pm1 Interpretation: normal. 10:53 Counseling: I had a detailed discussion with the patient and/or guardian regarding: the pm1 historical points, exam findings, and any diagnostic results supporting the discharge/admit diagnosis, lab results, the need for outpatient follow up, to return to the emergency department if symptoms worsen or persist or if there are any questions or concerns that arise at home. 11:01 ED course: Patient wants an ultrasound to rule out possible but informed her pm1 that she is not based on a negative urine and a negative beta HCG. Explained to her that a pelvic ultrasound is not warranted or justifiable to rule out with her current lab results. Informed patient to follow up with her PCP or oim consultant for further evaluation and follow up . 06/30 09:35 Order name: Quantitative Hcg; Complete Time: 10:52 pm1 06/30 09:35 Order name: Abo/rh Typing; Complete Time: 10:52 pm1 06/30 09:35 Order name: Basic Metabolic Panel; Complete Time: 10:52 pm1 06/30 09:35 Order name: CBC with Diff; Complete Time: 10:35 pm1 06/30 09:35 Order name: Urine Microscopic Only; Complete Time: 10:14 pm1 06/30 09:47 Order name: Urine Dipstick--Ancillary (enter results); Complete Time: 09:57 eb 06/30 09:35 Order name: Urine Test (obtain specimen); Complete Time: 09:51 pm1 06/30 09:35 Order name: IV Saline Lock; Complete Time: 10:22 pm1 06/30 09:35 Order name: Labs collected and sent; Complete Time: 10:22 pm1 06/30 09:35 Order name: NPO; Complete Time: 10:22 pm1 06/30 09:35 Order name: Urine Dipstick-Ancillary (obtain specimen); Complete Time: 09:51 pm1 06/30 09:47 Order name: Urine --Ancillary (enter results); Complete Time: 09:57 eb Administered Medications: No medications were administered Disposition: 15:53 Co-signature as Attending Physician, Darius Tam MD. rn Disposition: 06/30/20 10:54 Discharged to Home. Impression: Urinary tract infection, site not specified, Diarrhea, unspecified. - Condition is Stable. - Discharge Instructions: Food Choices to Help Relieve Diarrhea, Adult, Diarrhea, Adult, Urinary Tract Infection, Adult. - Prescriptions for Macrobid 100 mg Oral Capsule - take 1 capsule by ORAL route every 12 hours for 10 days; 20 capsule. - Medication Reconciliation Form, Thank You Letter, Antibiotic Education, Prescription Opioid Use form. - Follow up: Emergency Department; When: As needed; Reason: Worsening of condition. Follow up: Private Physician; When: 2 - 3 days; Reason: Recheck today's complaints, Continuance of care, Re-evaluation by your physician. - Problem is new. - Symptoms have improved. Signatures: Dispatcher [employer] EDMS Darius Tam MD MD rn Brandon, Genesis RN RN aa5 Tho Ridley, FRANKIE DEPUTY COMMISSIONER pm1 Corrections: (The following items were deleted from the chart) 11:49 10:54 06/30/2020 10:54 Discharged to Home. Impression: Urinary tract infection, site aa5 not specified; Diarrhea, unspecified. Condition is Stable. Forms are Medication Reconciliation Form, Thank You Letter, Antibiotic Education, Prescription Opioid Use. Follow up: Emergency Department; When: As needed; Reason: Worsening of condition. Follow up: Private Physician; When: 2 - 3 days; Reason: Recheck today's complaints, Continuance of care, Re-evaluation by your physician. Problem is new. Symptoms have improved. pm1
--- NOTE | 2020-06-30 10:55 | ER ---
Nurse's Notes [facility] Name: Shanna Estrella Age: 25 yrs Sex: Female : 1995 Arrival Date: 06/30/2020 Time: 09:14 Bed 6 Private MD: Diagnosis: Urinary tract infection, site not specified;Diarrhea, unspecified Presentation: 06/30 09:17 Chief complaint: Patient states: "I had a positive test on and I aa5 have been getting negatives since then but I have symptoms". Pt reports nausea, back pain, low abd cramping, and diarrhea x 2 weeks ago. 09:17 Coronavirus screen: Client denies travel out of the [place] in the last 14 days. Pt aa5 reports baseline smoker's cough. Denies fever. Ebola Screen: Patient negative for fever greater than or equal to 101.5 degrees Fahrenheit, and additional compatible Ebola Virus Disease symptoms. Risk Assessment: Do you want to hurt yourself or someone else? Patient reports no desire to harm self or others. Onset of symptoms was June 2020. 09:17 Acuity: ELI 3 aa5 09:17 Method Of Arrival: Ambulatory aa5 09:28 Initial Sepsis Screen: Does the patient meet any 2 criteria? No. Patient's initial rb3 sepsis screen is negative. Does the patient have a suspected source of infection? No. Patient's initial sepsis screen is negative. 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 - Social history:: Smoking status: Patient reports the use of cigarette tobacco products, Pt states "I haven't smoked since the positive test". Screenin:26 Abuse screen: Denies threats or abuse. Nutritional screening: No deficits noted. rb3 Tuberculosis screening: No symptoms or risk factors identified. Fall Risk None identified. Assessment: 09:26 General: Appears in no apparent distress. comfortable, Behavior is calm, cooperative, rb3 Denies fever. Neuro: Level of Consciousness is awake, alert, obeys commands, Oriented to person, place, time, situation. Cardiovascular: Patient's skin is warm and dry. Respiratory: Airway is patent Respiratory effort is even, unlabored, Respiratory pattern is regular, symmetrical. Musculoskeletal: Range of motion: intact in all extremities. 09:26 Pain: Complains of pain in back. GI: Reports diarrhea, nausea. rb3 10:30 Reassessment: PT REFUSING DISCHARGE, INSISTS THAT U/S SERVICES BE PROVIDED. LMP AT B/S bp TO EXPLAIN ER DOES NOT PROVIDE ELECTIVE SERVICES. 10:45 Reassessment: PT CONTINUES TO REFUSE D/C, CHARGE NURSE NOTIFIED. bp 11:15 Reassessment: CHARGE NURSE AT B/S TO EXPLAIN THAT U/S IS NOT AVAILABLE AT THIS TIME. PT bp SHOUTING AT CHARGE, THREATENING LITIGATION IF DEMANDS ARE NOT MET. 11:30 Reassessment: Pt upset and refusing to leave ER at this time. Spoke to patient about aa5 her concerns. Pt states "I don't trust the blood work that I am not , I got a positive test and I believe I am 3 months ". Pt requesting US. Explained to patient US is not available this weekend, and pt stated "just transfer me to another hospital where they can do the ultrasound", explained to patient she does not meet the transfer criteria at this time and that indicated POC per [facility] is to follow up with [facility]. Pt states "I am poor, I do not have money to follow up". Spoke to patient for approximately 15-20 minutes, pt remains upset, pt states "If I am really , [facility] and it will not be left standing". Pt d/c'd IV, catheter intact, and pressure being applied by patient to site. Pt walked out of ER with steady gait. . Vital Signs: 09:17 Weight 79.83 kg (R); Height 5 ft. 0 in. (152.40 cm) (R); Pain 0/10; aa5 09:28 BP 105 / 81; Pulse 81; Resp 17; Temp 98.2; Pulse Ox 100% ; rb3 10:25 BP 119 / 88; Pulse 78; Resp 16; Pulse Ox 100% ; rb3 11:30 BP 121 / 79; Pulse 81; Resp 17; Temp 98.5; Pulse Ox 100% ; bp 09:17 Body Mass Index 34.37 (79.83 kg, 152.40 cm) aa5 ED Course: 09:14 Patient arrived in ED. ag5 09:17 Tho Ridley NP is PHCP. pm1 09:17 Darius Tam MD is Attending Physician. pm1 09:17 Arm band placed on. aa5 09:24 Triage completed. aa5 09:26 Patient has correct armband on for positive identification. Bed in low position. Call rb3 light in reach. Side rails up X 1. Pulse ox on. NIBP on. 10:20 Inserted saline lock: 22 gauge in right antecubital area, using aseptic technique. bp Blood collected. 10:38 Ga Ellison, BANG is Primary Nurse. bp 11:30 No provider procedures requiring assistance completed. bp 11:43 IV discontinued, intact, bleeding controlled, No redness/swelling at site. Pressure bp dressing applied. Administered Medications: No medications were administered Outcome: 10:54 Discharge ordered by MD. pm1 11:45 Discharged to home ambulatory, with family. bp 11:45 Condition: stable 11:45 Discharge instructions given to patient, Instructed on discharge instructions, follow up and referral plans. medication usage, Demonstrated understanding of instructions, follow-up care, medications, Prescriptions given X 1. 11:49 Patient left the ED. aa5 Signatures: Genesis Taylor RN RN aa5 Tho Ridley NP MANGLE CATCHER pm1 Ga Ellison, BANG RN bp Benjie Malik ag5 Karen Nieves, BANG RN rb3 Corrections: (The following items were deleted from the chart) 11:43 11:15 Reassessment: CHARGE NURSE AT B/S TO EXPLAIN THAT U/S IS NOT AVAILABLE AT THIS bp TIME. PT SHOUTING AT CHARGE, THREATENING LITIGATION IF NOT PROVIDED WITH DEMANDS bp 12:27 11:30 Reassessment: Pt upset and refusing to leave ER at this time. Spoke to patient aa5 about her concerns. Pt states "I don't trust the blood work that I am not , I got a positive test and I believe I am 3 months ". Pt requesting US. Explained to patient US is not available this weekend, and pt stated "just transfer me to another hospital were they can do the ultrasound", explained to patient she does not meet the transfer criteria at this time and that indicated POC per [facility] C[facility] is to follow up with [facility]. Pt states "I am poor, I do not have money to follow up". Spoke to patient for approximately 15-20 minutes, pt remains upset, pt states "If I am really , I am [facility] and it will not be left standing". Pt d/c'd IV, catheter intact, and pressure being applied by patient to site. Pt walked out of ER with steady gait. . aa5
[2020-06-30 12:09] VITALS: O2SAT 100
[2020-06-30 12:12] VITALS: BP 121/79; TEMP 98.5
== END 2020-06-30 11:49 | disposition home or self-care (01) ==
LOC: ER 09:12
DX: N39.0 Urinary tract infection, site not specified (principal); Z88.0 Allergy status to penicillin; Z88.1 Allergy status to other antibiotic agents; Z88.8 Allergy status to other drugs, medicaments and biological substances; Z91.048 Other nonmedicinal substance allergy status
CPT/HCPCS: 36415; 80048; 81003; 81015; 81025; 84702; 85025; 86900; 86901; 99284

== ENCOUNTER 2020-08-05 22:05 | Emergency (ER) | payer SELFPAY ==
--- OUTSIDE RECORDS SUMMARY | 2020-08-05 22:08 | XMS REPORT | Continuity of Care Document ---
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 16 Medic al [facility] HEADACHE Active 07/11/[address] Chiari Active Problem 09/11/2019 [facility] malformation Neuro (disorder) Chiari Resolved Problem 09/11/2019 [facility] malformation Neuro,M H type II [place] (disorder) 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) Hydrocephalus Active Problem 09/11/2019 Misch er (disorder) Neuro,[facility] Depressive Resolved Problem 09/11/2019 [facility] disorder Neuro, (disorder) [facility] Simple obesity Active Problem 09/11/2019 Misc her (disorder) Neuro Posttraumatic Resolved Problem 09/11/2019 Misch er stress disorder Neur o, (disorder) [facility] HEADACHE Active [facility] Medications Medication Details Route Status Patient Ordering Order Source Instructions Provider Date oxcarbazepine 150 mg = 1 tab, Active adalid 150 MG Oral PO, BID, # 60 2019 Neuro Tablet tab, 3 [Trileptal] Refill(s), Pharmacy: [facility] 149 Ketorolac 60 mg, Route: No Longer 07/16[facility] IM, Drug form: Active 2015 [facility] INJ, ONCE, Dosing Weight 84.545, kg, Priority: STAT, Start date: 07/15/16 23:21:00 CHEMICAL TESTER, Stop date: 07/15/16 23:21:00 CHEMICAL TESTER Valium 5 mg, Route: No Longer 07/16[facility] IM, Drug form: Active 2015 [facility] INJ, ONCE, Dosing Weight 84.545, kg, Priority: STAT, Start date: 07/15/16 23:21:00 CHEMICAL TESTER, Stop date: 07/15/16 23:21:00 CHEMICAL TESTER Ativan Notes: (Same No Longer [facility] as: Ativan) Active 2015 [facility] nystatin Notes: (Same No Longer [facility] topical 100,000 as:Mycostatin, Active 2015 edical units/g cream Nilstat) For Cent er external use only. Nystatin 508712 1 appl, Route: Inactive [facility] UNT/ML / TOP, TID, Drug 2015 [facility] Triamcinolone form: CRM, Dike Acetonide 1 Start date: MG/ML Topical 07/13/16 Cream 9:00:00 CHEMICAL TESTER, Duration: 30 day, Stop date: 08/11/16 17:00:00 CHEMICAL TESTER Sodium Chloride 250 mL, 250 Inactive [facility] 0.154 MEQ/ML ml/hr, Infuse 2015 Medic al Injectable Over: 1 hr, Dike Solution Route: IV, 250, Drug form: INJ, ONCE, Priority: STAT, Dosing Weight 84.545 kg, Start date: 07/12/16 16:18:00 CHEMICAL TESTER, Duration: 1 doses or times, Stop date: 07/12/16 16:18:00 CHEMICAL TESTER Promethazine Notes: Do not No Longer [facility] give IV push. Active 2015 Medical (Same as: Dike Phenergan) Docusate Notes: (Same No Longer [facility] as: Colace) (Do Active 2015 Medical Not Crush) Dike sennosides, NURSING HOME Notes: (Same No Longer H [place] as: Senokot) Active 2015 [facility] Saline Flush Notes: (Same No Longer [place] 0.9% as: BD Active 2015 Medical Posiflush) Dike tramadol 50 mg = 1 tab, Active [place] hydrochloride PO, Q4H, PRN 2015 Medic al 50 MG Oral for pain, X 10 [place] Tablet [Ultram] day, # 60 tab, 0 Refill(s) tramadol Notes: [place] to [place] Longer [place] hydrochloride exceed Active 2015 [facility] 50 MG Oral 400mg/day. Dike Tablet [Ultram] (Same As: Ultram) tramadol 50 mg = 1 tab, [place]active [place] hydrochloride PO, Q4H, PRN 2016 Medic al 50 MG Oral for pain, X 10 Center Tablet [Ultram] day, # 60 tab, 0 Refill(s) senna 8.6 mg 8.6 mg = 1 tab, Active [place] oral tablet PO, Q12H, X 14 2016 Medic al day, # 28 tab, Center 0 Refill(s) Docusate Sodium 100 mg = 1 cap, Active [place] 100 MG Oral PO, Q12H, # 28 2016 Medic al Capsule cap, 0 Center Refill(s) Regular 60 units) No Longer [place] Insulin, Human WASTE: F/P - Active 2015 [facility]i gerry 100 UNT/ML Black; E - Center Injectable Municipal Trash Solution Bin Stable for 28 days at room temperature Expires in days from D ate Dextrose 50% 25 gm, 50 mL, No Longer [place] Syringe Route: IVP, Active 2015 Medical Drug Form: INJ, Center Dosing Weight 84.545, kg, PRN, PRN Abnormal Lab Result, Start date: 07/11/16 22:18:00 CHEMICAL TESTER, Duration: 30 day, Stop date: 08/10/16 22:17:00 CHEMICAL TESTER Bisacodyl Notes: (Same [place] Longer [place] As: Dulcolax, Active 2015 Medical Bisco-Lax) Center Saline Flush Notes: (Same No Longer [place] 0.9% as: BD Active 2015 [facility] Posiflush) Center Ondansetron Notes: (Same [place] Long[place]: Zofran) Active 2015 [facility] MEDICATION Center WASTE Product Size: 4 mg Product Wasted: _0__ mg Acetaminophen Notes: Do not No Longer [place] 325 MG / exceed 4gm/day Active 2015 Medical Hydrocodone of Center Bitartrate 10 acetaminophen. MG Oral Tablet (Same as: [place] 325/10) Acetaminophen Notes: (Same No Longer [place] 325 MG / as: [place] Active 2015 Medical Hydrocodone 325/5) Do not Cente r Bitartrate 5 MG exceed 4gm/day Oral Tablet of acetaminophen. Sodium Chloride 1,000 mL, Rate: No Longer [facility] 0.154 MEQ/ML 75 ml/hr, Active 2015 Medical Injectable Infuse over: Center Solution 13.3 hr, Route: IV, Dosing Weight 84.545 kg, Total Volume: 1,000, Start date: 07/11/16 22:18:00 CHEMICAL TESTER, Duration: 30 day, Stop date: 08/10/16 22:17:00 CHEMICAL TESTER Reglan Notes: (Same Inactive [facility] as: Reglan) 2015 [facility] Sodium Chloride 1,000 mL, 1,000 Inactive [facility] 0.154 MEQ/ML ml/hr, Infuse 2015 Medic al Injectable Over: 1 hr, Center Solution Route: IV, 1,000, Drug form: INJ, ONCE, Priority: STAT, Dosing Weight 84.545 kg, Start date: 07/11/16 20:59:00 CHEMICAL TESTER, Duration: 1 doses or times, Stop date: 07/11/16 20:59:00 CHEMICAL TESTER Acetaminophen Notes: Max Inactive [place] as acetaminophen 2015 Medical 4000 mg/day (4 [...] Protein CSF 34 15 - 45 07/13 [facility] BODY FLUIDS Color CSF Colorless Colorless 07/13 [place] (07/13/16 7:35 AM) [facility] BODY FLUIDS Clarity CSF Clear Clear 07/13 (07/13/16 7:35 AM) [facility] BODY FLUIDS Tube Num CSF xxxxxxx 07/13 [place] (07/13/16 7:35 AM) Medic [facility] BODY FLUIDS RBC CSF 0 0 - 03 07/13 [facility] BODY FLUIDS Supernat CSF Colorless Colorless 07/13 [place] (07/13/16 7:35 AM) Medic al Center BODY FLUIDS WBC CSF 1 0 - 53 07/13 [facility] BODY FLUIDS Glucose CSF 56 45 - 80 07/13 [facility] IMMUNOLOGY PE Interp CSF CSF 07/[address] [place] [facility] resis did not reveal evidence of an oligoclona l process in the COURT COLLECTIONS OFFICER. The CSF IgG index is within the [...] concur with the resident's interpreta tion. CPT: 33565-UJ IMMUNOLOGY Description The gel 07/13 [facility] CSF demonstr [facility] appropriat e resolution of the main protein bands. The gamma region shows continuous distributi on of proteins both in the CSF and in the serum. No oligoclona l bands are detected. IMMUNOLOGY IgG (CPE) 1010 694 - 1618 07/13 [facility] IMMUNOLOGY Alb (CPE) 4100.0 3400.0 - 07/13 [facility] 5000.0 [facility] IMMUNOLOGY IgG Lvl CSF 1.7 2.0 - 4.0 07/13 [place] /2015 [facility] IMMUNOLOGY Alb CSF (CPE) 14.7 14.0 - 07/13 [place] 25.0 [facility] IMMUNOLOGY IgG Index 0.5 0.3 - 0.7 07/13 [facility] CHEM PANEL eGFR 128 07/13 Result [...] Calcium Lvl 8.8 8.5 - 10.5 07/13 [facility] CHEM PANEL CO2 23 24 - 32 07/13 [facility] CHEM PANEL Chloride Lvl 108 95 - 109 07/13 [facility] CHEM PANEL Creatinine 0.61 0.50 - 07/13 [place] Lvl 1.40 [facility] CHEM PANEL Sodium Lvl 142 135 - 145 07/13 [facility] CHEM PANEL BUN 7 7 - 22 07/13 [facility] CHEM PANEL Potassium Lvl 3.9 3.5 - 5.1 07/13 [facility] CHEM PANEL Glucose Lvl 88 70 - 99 07/13 [facility] CHEM PANEL AGAP 14.9 10.0 - 07/13 20.0 [facility] HEMATOLOGY Lymphocytes 37.9 20.0 - 07/13 40.0 [facility] HEMATOLOGY Segs 52.1 45.0 - 07/13 [place] 75.0 [facility] HEMATOLOGY Monocytes 7.3 2.0 - 12.0 07/13 [facility] HEMATOLOGY Basophils 0.8 0.0 - 1.0 07/13 [facility] HEMATOLOGY Eosinophils 1.9 0.0 - 4.0 07/13 [facility] HEMATOLOGY Segs-Bands # 3.8 1.5 - 8.1 07/13 [facility] HEMATOLOGY Eosinophils # 0.1 0.0 - 0.5 07/13 [facility] HEMATOLOGY Monocytes # 0.5 0.0 - 0.8 07/13 [facility] HEMATOLOGY Lymphocytes # 2.7 1.0 - 5.5 07/13 [facility] HEMATOLOGY Basophils # 0.1 0.0 - 0.2 07/13 [facility] HEMATOLOGY RBC 4.53 4.20 - 07/13 [place] 5.40 [facility] HEMATOLOGY WBC 7.2 3.7 - 10.4 07/13 [facility] HEMATOLOGY Hct 38.5 36.0 - 07/13 [place] 48.0 [facility] HEMATOLOGY Hgb 13.0 12.0 - 07/13 [place] 16.0 /2015 [facility] HEMATOLOGY MCHC 33.9 32.0 - 07/13 [place] 36.0 /2015 [facility] HEMATOLOGY MCH 28.8 27.0 - 07/13 [place] 31.0 /2015 [facility] HEMATOLOGY RDW 14.0 11.5 - 07/13 [place] 14.5 /2015 [facility] HEMATOLOGY MPV 9.2 7.4 - 10.4 07/13 [facility] HEMATOLOGY Platelet 283 133 - 450 07/13 [facility] HEMATOLOGY MCV 84.9 80.0 - 07/13 [place] 98.0 /2015 [facility] HEMATOLOGY INR 0.96 0.85 - 07/13 [place] 1.17 /2015 [facility] HEMATOLOGY PTT 31.9 22.9 - 07/13 [place] 35.8 /2015 [facility] HEMATOLOGY PT 13.0 12.0 - 07/13 [place] 14.7 /2015 [facility] CARDIAC Troponin-T <0.010 0.000 - 07/12 [facility] ENZYMES 0.100 /2015 [facility] CARDIAC Total CK 33 12 - 191 07/12 [facility] ENZYMES /2015 [facility] MYOGLOBIN Myoglobin 35 25 - 72 07/12 [facility] DRUG SCREEN U Phencyc Scr Negative [...] HEMATOLOGY Platelet 306 133 - 450 07/12 [facility] HEMATOLOGY RDW 13.5 11.5 - 07/12 [place] 14.5 [facility] HEMATOLOGY MPV 9.3 7.4 - 10.4 07/12 [facility] HEMATOLOGY RBC 4.46 4.20 - 07/12 [place] 5.40 /2015 [facility] HEMATOLOGY Hgb 12.6 12.0 - 07/12 [place] 16.0 [facility] HEMATOLOGY Hct 37.4 36.0 - 07/12 [place] 48.0 [facility] HEMATOLOGY MCV 83.9 80.0 - 07/12 [place] 98.0 /2015 [facility] HEMATOLOGY WBC 9.4 3.7 - 10.4 07/12 [facility] HEMATOLOGY MCH 28.3 27.0 - 07/12 [place] 31.0 [facility] HEMATOLOGY MCHC 33.8 32.0 - 07/12 [place] 36.0 [facility] HEMATOLOGY PTT 33.7 22.9 - 07/12 [place] 35.8 /2015 [facility] HEMATOLOGY INR 1.02 0.85 - 07/12 [place] 1.17 [facility] HEMATOLOGY PT 13.6 12.0 - 07/12 [place] 14.7 [facility] HEMATOLOGY Segs-Bands # 5.5 1.5 - 8.1 07/12 as [facility] HEMATOLOGY Monocytes # 0.6 0.0 - 0.8 07/12 [facility] HEMATOLOGY Lymphocytes # 3.0 1.0 - 5.5 07/12 Te [facility] HEMATOLOGY Basophils # 0.1 0.0 - 0.2 07/12 [facility] HEMATOLOGY Eosinophils # 0.1 0.0 - 0.5 07/12 Te [facility] HEMATOLOGY Basophils 0.9 0.0 - 1.0 07/12 [facility] HEMATOLOGY Segs 58.7 45.0 - 07/12 [place] 75.0 [facility] HEMATOLOGY Lymphocytes 32.5 20.0 - 07/12 [place] 40.0 [facility] HEMATOLOGY Monocytes 6.5 2.0 - 12.0 07/12 [facility] HEMATOLOGY Eosinophils 1.4 0.0 - 4.0 07/12 [place] [facility] URINE AND UA WBC 1 0 - 5 07/12 [facility] STOOL [facility] URINE AND Micro? Not Indicated 07/12 [facility] *NA* /2015 Medical (07/12/16 12:39 AM) Cent er URINE AND UA <=1.0 0.1 - 1.0 07/12 [facility] Urobilinogen mg/dL [facility] URINE AND UA Protein Negative Negative 07/12 [facility] STOOL mg/dL mg/dL [facility] URINE AND UA Glucose Negative Negative 07/12 [facility] mg/dL mg/dL [facility] URINE AND UA Turbidity Clear Clear 07/12 [facility] (07/12/16 12:39 AM) [facility] URINE AND UA Spec Grav 1.011 <=1.030 07/12 [facility] URINE AND UA pH 6.5 5.0 - 8.0 07/12 [facility] URINE AND UA Color Yellow Yellow 07/12 [facility] *NA* /2015 Medical (07/12/16 12:39 AM) Cent er URINE AND UA Sq Epi Moderate Few /LPF 07/12 [facility] STOOL /LPF /2015 [facility] URINE AND UA Leuk Est Negative Negative 07/12 [facility] (07/12/16 12:39 AM) [facility] URINE AND UA Ketones Negative Negative 07/12 [facility] STOOL mg/dL mg/dL [facility] URINE AND UA Bili Negative Negative 07/12 [facility] STOOL *NA* /2015 Medical (07/12/16 12:39 AM) Cent er URINE AND UA Blood Negative Negative 07/12 [facility] (07/12/16 12:39 AM) [facility] URINE AND UA Nitrite Negative Negative 07/12 [facility] STOOL (07/12/16 12:39 AM) [facility]i [facility] Center URINE CHEM U Preg Negative Negative 07/12 [place] (07/12/16 12:39 AM) [facility] BLOOD BANK Antibody Scrn Negative 07/12 [place] RESULTS (07/11/16 11:50 PM) [facility] BLOOD BANK ABO/Rh A POS 07/12 [place] RESULTS [facility] CHEM PANEL Glucose Lvl 93 70 - 99 07/12 [facility] CHEM PANEL AGAP 15.5 10.0 - 07/12 [place] 20.0 [facility] CHEM PANEL eGFR 113 07/12 Result Comment: [facility] eGFR is Center calculated using the CKD-EPI [...] Sodium Lvl 142 135 - 145 07/12 [facility] CHEM PANEL Creatinine 0.75 0.50 - 07/12 [facility] Lvl 1.40 [facility] CHEM PANEL BUN 6 7 - 22 07/12 [facility] CHEM PANEL Calcium Lvl 8.8 8.5 - 10.5 07/12 [place] [facility] CHEM PANEL CO2 26 24 - 32 07/12 [facility] CHEM PANEL Potassium Lvl 3.5 3.5 - 5.1 07/12 [place] [facility] CHEM PANEL Chloride Lvl 104 95 - 109 07/12 [place] [facility] Pathology Reports No Data Provided for This Section Diagnostic Reports Report Value Date Source Brain shunt series Clinical Indication:21 years Female with Pain and swelling 07/15/2016 [place] DX Comparison: Shunt study 07/12/2016 FINDINGS: Radiographs of the right CHIEF LEARNING OFFICER shunt obtained from the skull to the abdomen. Unchanged appearance of the CHIEF LEARNING OFFICER shunt, which goes from the right lateral ventricle along the right neck, traverses the right upper chest to the left lower chest, and terminates in the left upper quadrant. No discontinuity of the CHIEF LEARNING OFFICER shunt. An orphaned CHIEF LEARNING OFFICER shunt catheter of the right chest is again noted. IMPRESSION: Unchanged appearance of righ t CHIEF LEARNING OFFICER shunt. No discontinuity of the shunt catheter or other significant radiographic abnormality. Brain w/wo contrast Exam: MRI brain without and with contrast. 1 09/12/2015 [facility] MRI Exam: CSF flow study. Center [...] Exam: MRI brain without and with contrast. [facility] MRI Exam: CSF flow study. Center [...] CT EXAM: CT HEAD WITHOUT CONTRAST 07/13/2016 [facility] DATE: 07/13/2016 INDICATION: 21 years old Fem evelyn patient with history of CHIEF LEARNING OFFICER shunt placement, now complaining of headache. TECHNIQUE: Multiple axial im ages were obtained through the head from vertex to the skull base. Axial bone algorithm reconstruction images are provided. COMPARISON: Prior CT Scan of the head dated 06/18 147 AM CHEMICAL TESTER DISCUSSION: Again identified is a right parietal approach CHIEF LEARNING OFFICER shunt catheter with distal tip lies within [...] e. 2. Stable right parietal vania yadav CHIEF LEARNING OFFICER shunt catheter with adequately decompressed ventricular system. 3. 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 Chest 1view DX EXAM: XR CHEST 1 VIEW 07/12/2016 [facility] edical DATE: 07/12/2016 4:[address] INDICATION: Chest pain COMPARISON: Yesterday TECHNIQUE: AP chest FINDINGS: Abandoned and calc ified discontinuous CHIEF LEARNING OFFICER shunt tubing is redemonstrated over the right lower neck and anterior chest, coursing over the upper abdomen. Additional CHIEF LEARNING OFFICER shunt tubing is seen over t he right neck, extending ove r the midline chest and left upper quadrant; distal tubing is not well seen. Stable cardiomediastinal silhouette. No new pulmonary or pleural based abnormalities. IMPRESSION: No significant change. Brain shunt series EXAM: XR SHUNT SERIES 07/12/2016 [facility] DATE: 07/12/2016 7:03 AM CHEMICAL TESTER INDICATION: Headache(s) ADDITIONAL INFORMATION: None. COMPARISON: Brain [...] the L3 level. IMPRESSION: 1. Right programmable CHIEF LEARNING OFFICER shunt with unremarkabl e appearance. 2. There is an orphaned arlyn nt catheter along the right thorax and left abdomen. Skull 1 view DX EXAM: XR SKULL 1 VIEW 07/12/2016 [facility] edical DATE: 07/12/2016 7:[address] INDICATION: Headache(s) COMPARISON: None TECHNIQUE: AP radiographs of the skull with 2 i mages DISCUSSION: A delta valve sh unt catheter is present with the tip of the delta aligned between the 2 radiopaque markers. The visualized portions of the catheter appear intact. IMPRESSION: Delta valve in place Brain wo contrast CT EXAM: CT HEAD WITHOUT CONTRAST 07/12/2016 [facility] DATE: 07/12/2016 147 AM CHEMICAL TESTER Cent er INDICATION: 21 years old Fem evelyn patient with history of CHIEF LEARNING OFFICER shunt placement, now complaining of headache. TECHNIQUE: Multiple axial im ages were obtained through the head from vertex to the skull base. Axial bone algorithm reconstruction images are provided. COMPARISON: Prior outside hospital CT Scan of th e head dated 07/11/2016 DISCUSSION: Again identified is a right parietal approach CHIEF LEARNING OFFICER shunt catheter with distal tip lies within [...] e. 2. Stable right parietal vania yadav CHIEF LEARNING OFFICER shunt catheter with adequately decompressed ventricular system. 3. 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 Chest 1view DX EXAM: XR CHEST 1 VIEW 07/11/2016 [facility] edical DATE: 07/11/2016 2230 hours Cent er INDICATION: Mass COMPARISON: Chest radiograph 07/11/2016 TECHNIQUE: AP chest FINDINGS: Lines and tubes: Abandoned a nd calcified discontinuous CHIEF LEARNING OFFICER shunt tubing is redemonstrated over the right lower neck and anterior chest, coursing over the upper abdomen. Additional CHIEF LEARNING OFFICER shunt tubing is seen over the right [...] No acute cardiopulmonary abnormality. 2. Partially visualized CHIEF LEARNING OFFICER shunt tubing as disc ussed above. Consultation Notes No Data Provided for This Section Discharge Summaries No Data Provided for This Section History and Physicals No Data Provided for This Section Vital Signs Vital Sign Value Date Comments Source Systolic (mm Hg) 105 07[place]27/2019 [facility] [place] Diastolic (mm Hg) 69 07/27/2019 [facility] [place] Heart Rate 85 07/27/2019 [facility] [place] Respitory Rate 16 07/27/2019 [facility] [place] Height 160.02 cm 07/27/2019 [facility] [place] Weight 85.455 07/27/2019 [facility] [place] BMI Calculated 33.37 07/27/2019 [facility] [place] Respitory Rate 16 07/16/2016 [place] Systolic [...] 07/16/[address] Respitory Rate 12 07/14/2016 [facility] Temperature Oral (F) 97.9 F 07/14/2016 [facility] Systolic (mm Hg) 111 07/14/2016 [facility] dical Center Diastolic (mm Hg) 72 07/14/2016 [facility] Center Respitory Rate 16 07/14/2016 [facility] Systolic (mm Hg) 117 07/14/2016 [facility] dical Center Diastolic (mm Hg) 79 07/14/2016 [facility] [place] [facility] Respitory Rate 13 07/14/2016 [facility] [place] [facility] Systolic (mm Hg) 110 07/14/2016 [facility] Diastolic (mm Hg) 61 07/14/2016 [facility] Heart Rate 84 07/14/2016 [facility] Heart Rate 75 07/14/2016 [facility] Heart Rate 81 07/14/2016 [facility] Temperature Oral (F) 98.0 F 07/13/2016 [facility] Temperature Oral (F) 98.1 F 07/13/2016 [facility] Weight 84.545 07/12/2016 [facility] Weight 84.545 07/12/2016 [facility] Height 152.4 cm 07/12/2016 [facility] BMI Calculated 36.4 07/12/2016 [facility] Encounters Location Location Encounter Encounter Reason Attending ADM DC Stat us Source Details Type Number For Provider Date Date Visit [facility] [id number] [place] 07/12 07/14 [facility] Biranne /2015 [facility] [id number] [place] 07/16 07/16 [facility] Juliet /2015 [facility] Outpatient [id number] [place] 07/27 Active [facility] Outpatient [id number] [place] 07/27 07/28 [facility] Outpatient [id number] [place] 08/12 Active [facility] Ambulatory [id number] [place] 08/12 08/12 [facility] Outpatient [id number] [place] 09/08 Active [facility] Ambulatory [id number] [place] 09/08 09/08 [facility] Outpatient [id number] [place] 09/09 Active [facility] Ambulatory [id number] [place] 09/09 09/09 [facility] Procedures Procedure Code Date Perfomer Comments Source Creation of CHIEF LEARNING OFFICER [id number] [facility] Assessment and Plan Assessment and Plan Date Source Extracted from:Title: Neurology consult note 07/14/2016 [facility] Author: Keiko Del Rosario MD Date: 07/13/16 [...] was few months ago , her last CHIEF LEARNING OFFICER shunt revision was 10 years ago. Britta [...] Agenesis of corpus collosum, Chiari II, s/p CHIEF LEARNING OFFICER shunt Past Surgical History: CHIEF LEARNING OFFICER shunt Family History: Noncontirbutory Social History: smokes [...] no leukocytosis Diagnostic Tests CT- Brain stable CHIEF LEARNING OFFICER shunt, nothing to compare MRI Brain: not available Assessment: 21 y/o female with PMH of agenesis of co rpus collosum, chiari II s/p CHIEF LEARNING OFFICER shunt , h/o seizure presented with BL ocipital headache for past 2 days with photophobia and nausea. neurology consulted for se izure evaluation. On exam has no visual field defect , mild LE weakness BL. Patient was evalauted with ophthalmology , neurosurgery also is evaluating for headache cause which can be due to CHIEF LEARNING OFFICER shunt mal function , although no ventriculomegaly for now but will rep eat CT in AM Plan: Regarding seizure standpoaint, patient d oes not look like to have seizure in this episode. but it is worthed to do routine EEG. HEadache seems to be due to CHIEF LEARNING OFFICER shunt mal function , managed per neurosurgery team Neurology will follow - We recommend the patient be admitted for observation under neurosurgery The case was discussed with the Neurolog y Consult attending ___Marlon . Thank you for this interesting consult, the neurology consult team will continue to follow with you. Please page [phone] should you have any queries or concerns. Keiko Del Rosario MD Resident PGY-2 [facility] Neurology Pager number [phone] ADDENDUM In addition to the information provided [...] continue to follow with you. Please page [phone] should you have any queries or concerns. ---- Dwight Metcalf MD, MPH. 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 Danyel Schneider MD Flight Controls Engineer of Neurology. Pager:[phone] Plan of Care No Data Provided for [...] entered on: 07/27/19 Social History TypeResponse 07/16/2016 [facility] Smoking Status Reg Smoking Cessation Counseling No; Cur rent every day smoker; Type: Cigarettes; Ready to change: No; Concerns about tobacco use in household: No; Exposure to Tobacco Smoke None; Cigarette Smoking Last 365 Days Yes Social History TypeResponse 07/16/2016 [facility] Smoking Status Reg Smoking Cessation [...]
--- OUTSIDE RECORDS SUMMARY | 2020-08-05 22:10 | XMS REPORT | Continuity of Care Document ---
:1995 Author Organization [facility] t Address [address] [place] [address] Care Team Providers Name Role Phone Doctor Unassigned, Name Attending Clinician Unavailable Rolan Figueroa Attending Clinician Renata Chung Attending Clinician Brianne Yost Attending Clinician Brianne Yost Admitting Clinician Problems Condition Condition Condition Status Onset Resolution Last Treating Co mments Source Name Details Category Date Date Treatment Clinician Date OTHER Diagnosis Active 2015-082016-07-15 Mem oria 09-14 22:55:00 l OTHER 00:00: [place] 00 Active 07/15/2016 [facility] POSSIBLE Diagnosis Active 2015-082016-07-11 M emoria MALFUNCTIO 09-10 22:33:00 l N PROFILE SAW OPERATOR SHUNT POSSIBLE 00:00: Juan edge MALFUNCTIO 00 N PROFILE SAW OPERATOR 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 Active 07/11/2016 [facility] HEADACHE Diagnosis Active 2015-082016-07-14 M emoria 09-10 08:24:00 l HEADACHE 00:00: Ernie n 00 Active 07/11/2016 [facility] 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) Resolved Problem 09/11/2019 [facility] Depressive Problem Resolve 2019-09-11 Memoria disorder d 22:27:01 l (disorder) Ernie n Depressive disorder (disorder) Resolved Problem 09/11/2019 [facility] Neuro,[facility] Posttrauma Problem Resolve 2019-09-11 Memoria tic stress d 22:27:01 l disorder [place] (disorder) Posttrauma tic stress disorder (disorder) Resolved Problem 09/11/2019 [facility] Chiari Problem Active 2019-09-11 Memor ia malformati 22:27:01 l on Chiari [place] (disorder) malformati on (disorder) Active Problem 09/11/2019 [facility] 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) Active Problem 09/11/2019 [facility] Neuro Hydrocepha Problem Active 2019-09-11 M emoria willam 22:27:01 l (disorder) Ernie n Hydrocepha willam (disorder) Active Problem 09/11/2019 [facility] Neuro,[facility] Simple Problem Active 2019-09-11 Memor ia obesity 22:27:01 l (disorder) Simple Herm abran obesity (disorder) Active Problem 09/11/2019 [facility] Neuro Discharge Problem 2015-082016-07-19 2016-07-19 Memoria Diagnosis: 09-15 04:14:28 04:14:28 l Acute 06:00: [place] cervical Discharge 00 sprain Diagnosis: Acute cervical sprain 07/16/2016 07/19/2016 [facility] Allergies, Adverse Reactions, Alerts Allergy Allergy Status Severity Reaction(s) Onset Inactive Treating Comm ents Source Name Type Date Date Clinician penicill penicill Active Memori a ins ins l [place] amoxicil amoxicil Active Memori a clovis clovis l [place] [facility] Active Memoria Tape Tape l [place] LaMICtal LaMICtal Active Memori a l [place] [...] ermann [Trileptal] 00 tab, 3 Refill(s), Pharmacy: [place] [id number] Ketorolac 2015-08 No 60 mg, Memori a 09-15 Route: IM, l 05:21: Drug form: [place] 00 INJ, ONCE, Dosing Weight 84.545, kg, Priority: STAT, Start date: 07/15/16 23:21:00 SUPERVISOR TUBING, Stop date: 07/15/16 23:21:00 SUPERVISOR TUBING Valium 2015-08 No 5 mg, Memoria 09-15 Route: IM, l 05:21: Drug form: [place] 00 INJ, ONCE, Dosing Weight 84.545, kg, Priority: STAT, Start date: 07/15/16 23:21:00 SUPERVISOR TUBING, Stop date: 07/15/16 23:21:00 SUPERVISOR TUBING Ativan 2015-08 No Notes: Memoria 09-13 (Same as: l 05:15: Ativan) [place] 00 nystatin 2015-08 No Notes: Memoria topical 09-12 (Same l 100,000 23:00: as:Mycosta Herm abran units/g 00 tin, cream Nilstat) For external use only. Nystatin 2015-08 No 1 appl, Memori a [id number] 09-12 Route: l UNT/ML / 15:00: TOP, TID, Eusebio abran Triamcinolo 00 Drug form: ne CRM, Start Acetonide 1 date: MG/ML 07/13/16 Topical 9:00:00 Cream SUPERVISOR TUBING, Duration: 30 day, Stop date: 08/11/16 17:00:00 SUPERVISOR TUBING Sodium 2015-08 No 250 mL, Memoria Chloride 09-11 250 ml/hr, l 0.154 22:18: Infuse [place] MEQ/ML 00 Over: 1 Injectable hr, Route: Solution IV, 250, Drug form: INJ, ONCE, Priority: STAT, Dosing Weight 84.545 kg, Start date: 07/12/16 16:18:00 SUPERVISOR TUBING, Duration: 1 doses or times, Stop date: 07/12/16 16:18:00 SUPERVISOR TUBING Promethazin 2015-08 No Notes: Do M emoria e 09-11 not give l 22:17: IV push. [place] 00 (Same as: Phenergan) Docusate 2015-08 No Notes: Memoria 09-11 (Same as: l 15:00: Colace) [place] (Do Not Crush) sennosides, 2015-08 No Notes: Sami stefani MCFP 09-11 (Same as: l 15:00: Senokot) [place] Saline 2015-08 No Notes: Memoria Flush 0.9% 09-11 (Same as: l 15:00: BD [place] Posiflush) tramadol 2015-08 Yes 50 mg = [...] 1-26 mL, Route: l 04:18: IVP, Drug [place] Form: INJ, Dosing Weight 84.545, kg, PRN, PRN Abnormal Lab Result, Start date: 07/11/16 22:18:00 SUPERVISOR TUBING, Duration: 30 day, Stop date: 08/10/16 22:17:00 SUPERVISOR TUBING Bisacodyl 2015-08 No Notes: Memori a 09-11 (Same As: l 04:18: Dulcolax, [place] 00 Bisco-Lax) Saline 2015-08 No Notes: Memoria Flush 0.9% 09-11 (Same as: l 04:18: BD [place] Posiflush) Ondansetron 2015-08 No Notes: Sami stefani 09-11 (Same as: l 04:18: Zofran) [place] 00 MEDICATION WASTE Product Size: 4 mg Product Wasted: _0__ mg Acetaminoph 2015-08 No Notes: Do M emoria en 325 MG / 09-11 not exceed l Hydrocodone 04:18: 4gm/day of [place] Bitartrate 00 acetaminop 10 MG Oral hen. Tablet (Same as: Jack 325/10) Acetaminoph 2015-08 No Notes: Sami stefani en 325 MG / 09-11 (Same as: l Hydrocodone 04:18: Jack Danika nn Bitartrate 00 325/5) Do 5 MG Oral not exceed Tablet 4gm/day of acetaminop hen. Sodium 2015-08 No 1,000 mL, Memori a Chloride 09-11 Rate: 75 l 0.154 04:18: ml/hr, [place] MEQ/ML 00 Infuse Injectable over: 13.3 Solution hr, Route: IV, Dosing Weight 84.545 kg, Total Volume: 1,000, Start date: 07/11/16 22:18:00 SUPERVISOR TUBING, Duration: 30 day, Stop date: 08/10/16 22:17:00 SUPERVISOR TUBING Reglan 2015-08 No Notes: Memoria 09-11 (Same as: l 02:59: Reglan) [place] 00 Sodium 2015-08 No 1,000 mL, Memori a Chloride 09-11 1,000 l 0.154 02:59: ml/hr, [place] MEQ/ML 00 Infuse Injectable Over: 1 Solution hr, Route: IV, 1,000, Drug form: INJ, ONCE, Priority: STAT, Dosing Weight 84.545 kg, Start date: 07/11/16 20:59:00 SUPERVISOR TUBING, Duration: 1 doses or times, Stop date: 07/11/16 20:59:00 SUPERVISOR TUBING Acetaminoph 2015-08 No Notes: Max Memoria en 09-11 acetaminop l 02:59: hen 4000 [place] 00 mg/day (4 gm/day). (Same as: Tylenol Extra Strength) Vital Signs Vital Name Observation Time Observation Value Comments Source Systolic (mm Hg) 2019-07-27 20:13:00 Sami rial [place] Diastolic (mm Hg) 2019-07-27 20:13:00 Mem orial [place] Heart Rate 2019-07-27 20:13:00 [facility] [place] Respitory Rate 2019-07-27 20:13:00 Memori al [place] Height 2019-07-27 20:13:00 160.02 cm [facility] [place] Weight 2019-07-27 20:13:00 [facility] [place] BMI Calculated 2019-07-27 20:13:00 Memori al [place] Respitory Rate 2016-07-16 07:16:00 Memori al [place] Systolic (mm Hg) 2016-07-16 07:16:00 Sami rial [place] Diastolic (mm Hg) 2016-07-16 07:16:00 Mem orial [place] Temperature Oral (F) 2016-07-16 07:16:00 98.2 F [facility] [place] Temperature Oral (F) 2016-07-16 05:06:00 98.6 F [facility] [place] Respitory Rate 2016-07-16 05:06:00 Memori al [place] Diastolic (mm Hg) 2016-07-16 05:06:00 Mem orial [place] Systolic (mm Hg) 2016-07-16 05:06:00 Sami rial [place] Weight 2016-07-16 04:31:00 [facility] [place] Respitory Rate 2016-07-16 04:31:00 Memori al [place] Heart Rate 2016-07-16 04:31:00 [facility] [place] Temperature Oral (F) 2016-07-16 04:31:00 98.8 F [facility] [place] BMI Calculated 2016-07-16 04:31:00 Memori al [place] Height 2016-07-16 04:31:00 154.94 cm [facility] [place] Systolic (mm Hg) 2016-07-16 04:31:00 Sami rial [place] Diastolic (mm Hg) 2016-07-16 04:31:00 Mem orial [place] Respitory Rate 2016-07-14 16:00:00 Memori al [place] Temperature Oral (F) 2016-07-14 15:41:00 97.9 F [facility] [place] Systolic (mm Hg) 2016-07-14 15:00:00 Sami rial [place] Diastolic (mm Hg) 2016-07-14 15:00:00 Mem orial [place] Respitory Rate 2016-07-14 15:00:00 Memori al [place] Systolic (mm Hg) 2016-07-14 14:00:00 Sami rial [place] Diastolic (mm Hg) 2016-07-14 14:00:00 Mem orial [place] Respitory Rate 2016-07-14 14:00:00 Memori al [place] Systolic (mm Hg) 2016-07-14 13:00:00 Sami rial [place] Diastolic (mm Hg) 2016-07-14 13:00:00 Mem orial [place] Heart Rate 2016-07-14 05:38:00 [facility] [place] Heart Rate 2016-07-14 05:19:00 [facility] [place] Heart Rate 2016-07-14 05:04:00 [facility] [place] Temperature Oral (F) 2016-07-13 18:30:00 98.0 F [facility] [place] Temperature Oral (F) 2016-07-13 14:00:00 98.1 F [facility] [place] Weight 2016-07-12 06:59:00 [facility] [place] Weight 2016-07-12 02:34:00 [facility] [place] Height 2016-07-12 02:34:00 152.4 cm [facility] [place] BMI Calculated 2016-07-12 02:34:00 Memori al [place] Procedures Procedure Date / Time Performed Performing Clinician [facility] e Creation of PROFILE SAW OPERATOR shunt [facility] rmann Encounters Start End Encounter Admission Attending Care Care Encounter Source Date/Time Date/Time Type Type Clinicians Facility Department ID 2019-09-28 2019-09-28 Orders Doctor CATARINO [id number] 00:00:00 00:00:00 Only Unassigned, JANNIE [id number] [place] [facility] [id number] 2019-09-09 2019-09-09 [id number] 11:00:00 11:00:00 German 03 Rolan 2019-09-08 2019-09-08 Outpatient Carolina, MHMISCHER MHMISCHER [id number] 15:30:00 15:30:00 German 04 Rolan 2019-08-12 2019-08-12 Outpatient Carolina, MHMISCHER MHMISCHER [id number] 15:30:00 15:30:00 German 02 Rolan 2019-07-29 2019-07-29 Orders Doctor CATARINO [id number] 00:00:00 00:00:00 Only Unassigned, JANNIE [id number] [place] [facility] [id number] 2019-07-27 2019-07-27 Outpatient Carolina, MHMISCHER MHMISCHER [id number] 14:00:00 23:59:59 German Rolan 2016-07-15 2016-07-16 Outpatient [place], [place] [id number] 22:24:00 01:27:00 Verona Ahmed 00 2016-07-11 2016-07-14 Outpatient Esgordonzi [facility] [id number] 20:34:00 11:57:00 YostJenaro barger 2004-07-18 2004-07-18 Orders Doctor CATARINO [id number] 00:00:00 00:00:00 Only Unassigned, JANNIE [id number] [place] [facility] [id number] Results Test Description Test Time Test Comments Results Result [facility] e Comments BODY FLUIDS 2016-07-13 34 Memorial 13:35:00 [place] BODY FLUIDS 2016-07-13 Colorless [facility] 13:35:00 (07/13/16 7:35 [place] AM) BODY FLUIDS 2016-07-13 Clear (07/13/16 Memorial 13:35:00 7:35 AM) [place] BODY FLUIDS 2016-07-13 xxxxxxx Memorial 13:35:00 (07/13/16 7:35 [place] AM) BODY FLUIDS 2016-07-13 0 Memorial 13:35:00 [place] BODY FLUIDS 2016-07-13 Colorless [facility] 13:35:00 (11/27/16 7:35 [place] AM) BODY FLUIDS 2016-07-13 1 Memorial 13:35:00 [place] BODY FLUIDS 2016-07-13 56 Memorial 13:35:00 [place] IMMUNOLOGY 2016-07-13 1010 Memorial 13:35:00 [place] IMMUNOLOGY 2016-07-13 4100.0 Memorial 13:35:00 [place] IMMUNOLOGY 2016-07-13 1.7 Memorial 13:35:00 [place] IMMUNOLOGY 2016-07-13 14.7 Memorial 13:35:00 [place] IMMUNOLOGY 2016-07-13 0.5 Memorial 13:35:00 [place] CHEM PANEL 2016-07-13 128 Memorial 07:33:00 [place] CHEM PANEL 2016-07-13 8.8 Memorial 07:33:00 [place] CHEM PANEL 2016-07-13 23 Memorial 07:33:00 [place] CHEM PANEL 2016-07-13 108 Memorial 07:33:00 [place] CHEM PANEL 2016-07-13 0.61 Memorial 07:33:00 [place] CHEM PANEL 2016-07-13 142 Memorial 07:33:00 [place] CHEM PANEL 2016-07-13 7 Memorial 07:33:00 [place] CHEM PANEL 2016-07-13 3.9 Memorial 07:33:00 [place] CHEM PANEL 2016-07-13 88 Memorial 07:33:00 [place] CHEM PANEL 2016-07-13 14.9 Memorial 07:33:00 [place] HEMATOLOGY 2016-07-13 37.9 Memorial 07:33:00 [place] HEMATOLOGY 2016-07-13 52.1 Memorial 07:33:00 [place] HEMATOLOGY 2016-07-13 7.3 Memorial 07:33:00 [place] HEMATOLOGY 2016-07-13 0.8 Memorial 07:33:00 [place] HEMATOLOGY 2016-07-13 1.9 Memorial 07:33:00 [place] HEMATOLOGY 2016-07-13 3.8 Memorial 07:33:00 [place] HEMATOLOGY 2016-07-13 0.1 [facility] 07:33:00 [place] HEMATOLOGY 2016-07-13 0.5 Memorial 07:33:00 [place] HEMATOLOGY 2016-07-13 2.7 Memorial 07:33:00 [place] HEMATOLOGY 2016-07-13 0.1 Memorial 07:33:00 [place] HEMATOLOGY 2016-07-13 4.53 Memorial 07:33:00 [place] HEMATOLOGY 2016-07-13 7.2 Memorial 07:33:00 [place] HEMATOLOGY 2016-07-13 38.5 Memorial 07:33:00 [place] HEMATOLOGY 2016-07-13 13.0 Memorial 07:33:00 [place] HEMATOLOGY 2016-07-13 33.9 Memorial 07:33:00 [place] HEMATOLOGY 2016-07-13 07:33:00 Test Item Value Reference Range Interpretation Comme nts MCH (test code = MCH) 28.8 pg 27.0-31.0 Memorial ZoogtiiPSTYFQJICI1127-14-50 07:33:0014.0[facility] HermannHEMATOLOGY 2016-07-13 07:33:009.2[facility] KzrgjreAZPOVPSECN9074-78-92 07:33:96129Sflqwyjw YmifqrrPKHQONNOUN8110-93-69 07:33:0084.9[facility] GhgexhkJACHSWWTIO3415-34-48 07:33:000.96[facility] LorissqPYYMGAAWQL1445-66-71 07:33:00 Test Item Value Reference Range Interpretation Comments PTT (test code = PTT) 31.9 s 22.9-35.8 Memorial ZskxiuwALVPHTQTII9148-74-74 07:33:00 Test Item Value Reference Range Interpretation Comments PT (test code = PT) 13.0 s 12.0-14.7 [facility] HermannCARDIAC [id number] 22:45:00<0.010[facility] [place] CARDIAC TQVTWRE9568-28-16 22:45:0033[facility] VdxhspaEXTYYRPML4471-46-55 22:45:00 35[facility] HermannDRUG [id number] 06:39:00Negative *NA*(07/12/16 12:39 AM) [facility] HermannDRUG MEOHML9588-66-13 06:39:00Negative *NA*(07/12/16 12:39 AM) [facility] HermannDRUG FQKCXB6387-31-00 06:39:00Negative *NA*(07/12/16 12:39 AM) [facility]annDR[facility] [id number] 06:39:00Negative *NA*(07/12/16 12:39 AM) [facility]annDR[facility] [id number] 06:39:00See Note *NA*(07/12/16 12:39 AM) [facility]annDR[facility] [id number] 06:39:00Negative *NA*(07/12/16 12:39 AM) [facility]annDR[facility] [id number] 06:39:00Negative *NA*(07/12/16 12:39 AM) [facility]annDR[facility] RVSRNS6034-50-02 06:39:00Negative *NA*(07/12/16 12:39 AM) [facility]annDR[facility] [id number] 06:39:00Negative *NA*(07/12/16 12:39 AM) [facility]annDRUG [id number] 06:39:00Negative *NA*(07/12/16 12:39 AM) [facility] XmwtqgfGSZPNXBFJE9558-43-70 06:39:18100Uvrdcbev HermannHEMATOLOGY 2016-07-12 06:39:0013.5[facility] HiwnfqnBLOOYHUPBQ9559-10-68 06:39:009.3[facility] ZnoaocfDJVCVOWTTS9815-33-63 06:39:004.46[facility] MfugdufHXOBOKYYEQ9260-27-64 06:39:0012.6[facility] YfqsblpBIEBVAHXHB4910-54-58 06:39:0037.4[facility] [place] YVBHPWDZAW8255-54-49 06:39:0083.9[facility] HohzwuwODJIBJEQIW1545-01-14 06:39:00 9.4[facility] KhcrdhcZKCEJEKBMX8088-70-85 06:39:00 Test Item Value Reference Range Interpretation Comments MCH (test code = MCH) 28.3 pg 27.0-31.0 [facility] ExewveoTVGWTTGSVF5048-92-84 06:39:0033.8[facility] HermannHEMATOLOGY 2016-07-12 06:39:00 Test Item Value Reference Range Interpretation Comments PTT (test code = PTT) 33.7 s 22.9-35.8 [facility] WfhyqcgAOHGFIEDQX4439-05-24 06:39:001.02[facility] HermannHEMATOLOGY 2016-07-12 06:39:00 Test Item Value Reference Range Interpretation Comments PT (test code = PT) 13.6 s 12.0-14.7 Memorial QliomkxUXADFAVQHF6291-80-04 06:39:005.5[facility] HermannHEMATOLOGY 2016-07-12 06:39:000.6[facility] FjasgvhEERRASUTYL7054-31-86 06:39:003.0[facility] MtsynbyFKNSOFCEVA9477-90-20 06:39:000.1[facility] WqvndyiLQKACQGDTI0019-22-03 06:39:000.1[facility] OtmjofoMMCZLEFDSP6031-76-21 06:39:000.9[facility] [place] PDOODGCNAR1857-47-22 06:39:0058.7[facility] IzfziexQWPZBGIWNI7715-28-58 06:39:00 32.5[facility] OewxsabTCIOUQYJKV6483-17-62 06:39:006.5[facility] HermannHEMATOLOGY 2016-07-12 06:39:001.4[facility] HermannURINE AND [id number] 06:39:001 [facility]annURINE AND [id number] 06:39:00Not Indicated *NA*(07/12/16 12:39 AM)[facility]annURINE AND POYOV3391-13-08 06:39:00Clear (07/12/16 12:39 AM)[facility]ann[facility] AND AMPEN5810-95-03 06:39:001.011[facility] HermannURINE AND [id number] 06:39:006.5[facility] HermannURINE AND NRLQN7617-50-84 06:39:00Yellow *NA*(07/12/16 12:39 AM)[facility]annURINE AND KBQPO6801-56-04 06:39:00Negative (07/12/16 12:39 AM)[facility]annUR[facility] AND [id number] 06:39:00Negative *NA*(07/12/16 12:39 AM)[facility]ann[facility] AND STOOL 2016-07-12 06:39:00Negative (07/12/16 12:39 AM)[facility]annURINE AND STOOL 2016-07-12 06:39:00Negative (07/12/16 12:39 AM)[facility] HermannURINE CHEM 2016-07-12 06:39:00Negative (07/12/16 12:39 AM)[facility] HermannBLOOD BANK YNNYFIN9569-75-40 05:50:00Negative (07/11/16 11:50 PM)[facility] HermannCHEM PANEL 2016-07-12 03:20:0093[facility] HermannCHEM KMAXP9423-10-43 03:20:0015.5[facility] HermannCHEM ZINPY0101-88-37 03:20:39165Cmxccsfm HermannCHEM EJOLO9484-38-35 03:20:69318Ojvhqqvi HermannCHEM EHNTD0940-73-74 03:20:000.75[facility] HermannCHEM IFXFW6455-86-49 03:20:006[facility] HermannCHEM XQFNT3133-77-74 03:20:008.8 [facility] HermannCHEM FQOAD6730-15-03 03:20:0026[facility] HermannCHEM PANEL 2016-07-12 03:20:003.5[facility] HermannCHEM AYYCB1002-49-78 03:20:52390Ihvtzcgc [place]
[2020-08-05] MEDS ORDERED: NA CHLORIDE 0.9% 1,000 ML ONE ×2 (23:08→23:23)
[2020-08-05 23:37] LABS: Barbiturates NEGATIVE (NEGATIVE); Benzodiazepines NEGATIVE (NEGATIVE); Cocaine NEGATIVE (NEGATIVE); METHAMPHETAM NEGATIVE (NEGATIVE); Methadone NEGATIVE (NEGATIVE); Opiates NEGATIVE (NEGATIVE); Phencyclidine NEGATIVE (NEGATIVE); THC Cannibis POSITIVE (NEGATIVE)
[2020-08-05 23:38] LABS: Urine Blood TRACE (NEG); Urine Glucose NEGATIVE (NEG); Urine Protein 1+ (NEG); Urine Specific Gravity >1.030 (1.005-1.030); Urine pH 6.5 (5.0-7.0)
[2020-08-05 23:55] LABS: Hematocrit 43.6 % (36.0-45.0); Lymphocytes % 26.4 % (15.3-44.8); MPV 9.3 fL (7.6-11.3); RBC Red Blood Cell Count 5.09 M/uL (3.86-4.86)
[2020-08-06 00:12] LABS: ALT/SGPT 18 U/L (12-78); AST/SGOT 16 U/L (15-37); Alkaline Phosphatase 87 U/L (45-117); BUN Blood Urea Nitrogen 9 mg/dL (7-18); Bicarbonate 25 mmol/L (21-32); Bilirubin Direct < 0.1 mg/dL (0-0.2); Bilirubin Total 0.4 mg/dL (0.2-1.0); Glucose Level 86 mg/dL (74-106); Lipase 111 U/L (73-393); Potassium 3.4 mmol/L (3.5-5.1); Protein, Total 8.3 g/dL (6.4-8.2); Sodium Level 141 mmol/L (136-145)
[2020-08-06 00:17] LABS: HCG, Quantitative < 1 mIU/mL (1-3)
--- NOTE | 2020-08-06 00:55 | EDPHYS ---
Physician Documentation [facility] Name: Shanna Estrella Age: 25 yrs Sex: Female : 1995 Arrival Date: 08/05/2020 Time: 22:05 Bed 8 Private MD: ED Physician Zackery Issa HPI: 08/05 22:40 This 25 yrs old Female presents to ER via Ambulatory with complaints of cp Vaginal Bleeding. 22:40 The patient presents with vaginal bleeding that is heavy. Onset: The symptoms/episode cp began/occurred 3 day(s) ago. Associated signs and symptoms: Pertinent positives: cramping, lightheaded. Patient reports vaginal bleeding started as normal menstrual bleeding 3 days ago, became heavy today where she believes she passed about 3 ounces of blood recently. 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 cp 22:45 Eyes: Negative for injury, pain, redness, and discharge. cp 22:45 ENT: Negative for ear pain, sore throat, difficulty swallowing, difficulty handling secretions. 22:45 Cardiovascular: Negative for chest pain, palpitations. 22:45 Respiratory: Negative for cough, shortness of breath, wheezing. 22:45 Abdomen/GI: Positive for abdominal cramps, Negative for nausea, vomiting, and diarrhea. 22:45 : Positive for vaginal bleeding, Negative for urinary symptoms. 22:45 Neuro: Positive for near syncope, Negative for altered mental status, headache, weakness. 22:45 All other systems are negative. Exam: 22:50 Constitutional: The patient appears in no acute distress, alert, awake, cp non-diaphoretic, non-toxic, well developed, well nourished. 22:50 Head/Face: Normocephalic, atraumatic. cp 22:50 Eyes: Periorbital structures: appear normal, Pupils: equal, round, and reactive to light and accomodation, Extraocular movements: intact throughout, Conjunctiva: normal, no exudate, no injection, Sclera: no appreciated abnormality, Lids and lashes: appear normal, bilaterally. 22:50 ENT: External ear(s): are unremarkable, Nose: is normal, Mouth: Lips: moist, Oral mucosa: moist, Posterior pharynx: Airway: no evidence of obstruction, patent. 22:50 Neck: ROM/movement: is normal, is supple, without pain, no range of motions limitations. 22:50 Chest/axilla: Inspection: normal. 22:50 Cardiovascular: Rate: tachycardic, Rhythm: regular, Edema: is not appreciated, JVD: is not appreciated. 22:50 Respiratory: the patient does not display signs of respiratory distress, Respirations: normal, no use of accessory muscles, labored breathing, is not present, Breath sounds: are clear throughout, no decreased breath sounds, no stridor, no wheezing. 22:50 Abdomen/GI: Inspection: abdomen appears normal, Bowel sounds: active, all quadrants, Palpation: soft, in all quadrants, mild abdominal tenderness, in the right lower quadrant and left lower quadrant, rebound tenderness, is not appreciated, involuntary guarding, is not appreciated. 22:50 Back: pain, is absent, ROM is normal. 22:50 Skin: cellulitis, is not appreciated, no rash present. 22:50 Neuro: Orientation: to person, place \\T\\ time. Mentation: is normal, Motor: moves all fours, strength is normal. 23:18 ECG was reviewed by the Attending Physician. cp Vital Signs: 22:25 BP 138 / 88; Pulse 144; Resp 20; Temp 98.4; Pulse Ox 100% on R/A; Weight 79.83 kg; dm5 Height 5 ft. 1 in. (154.94 cm); Pain 4/10; 23:16 BP 115 / 77 Supine; Pulse 99 LA; oe 23:17 BP 113 / 83 Sitting; Pulse 100; oe 23:30 BP 133 / 106; Pulse 86; Resp 18; Pulse Ox 100% on R/A; mg2 08/06 01:09 BP 126 / 78; Pulse 80; Resp 18; Temp 98; Pulse Ox 100% on R/A; mg2 08/05 22:25 Body Mass Index 33.25 (79.83 kg, 154.94 cm) dm5 MDM: 08/05 22:37 Patient medically screened. cp 08/06 00:55 Data reviewed: vital signs, nurses notes, lab test result(s), EKG, radiologic studies, cp ultrasound, and as a result, I will discharge patient. Counseling: I had a detailed discussion with the patient and/or guardian regarding: the historical points, exam findings, and any diagnostic results supporting the discharge/admit diagnosis, lab results, to return to the emergency department if symptoms worsen or persist or if there are any questions or concerns that arise at home. Response to treatment: the patient's symptoms have markedly improved after treatment, patient is well hydrated. VSS. H/H normal. Symptoms improved. Will discharge to home for continued monitoring. 08/05 22:30 Order name: Basic Metabolic Panel; Complete Time: 00:28 cp 08/06 00:28 Interpretation: Normal except: K 3.4; CL 109; GFR 85. 08/05 22:30 Order name: CBC with Diff; Complete Time: 00:04 cp 08/06 00:04 Interpretation: Normal except: WBC 11.4; RBC 5.09. 08/05 22:30 Order name: Hepatic Function; Complete Time: 00:28 cp 08/06 00:29 Interpretation: Normal except: TP 8.3; GLOB 4.3; A/G 0.9. 08/05 22:30 Order name: Lipase; Complete Time: 00:28 cp 08/05 22:32 Order name: UDS; Complete Time: 23:41 cp 08/05 23:41 Interpretation: Normal except: THC POSITIVE. 08/05 22:32 Order name: Type And Screen cp 08/05 22:33 Order name: US Transvaginal Study (Probe) cp 08/05 22:55 Order name: Urine Dipstick--Ancillary (enter results); Complete Time: 23:41 mw2 08/05 23:41 Interpretation: Normal except: UKET 1+; UBLD TRACE; UPROT 1+. cp 08/05 22:55 Order name: Urine --Ancillary (enter results); Complete Time: 23:41 mw2 12/20 23:28 Order name: CT Head Brain wo Cont cp 08/05 23:51 Order name: HCG, Quantitative; Complete Time: 00:28 EDNH 08/05 22:30 Order name: IV Saline Lock; Complete Time: 23:40 cp 08/05 22:30 Order name: Labs collected and sent; Complete Time: 23:40 cp 08/05 22:32 Order name: Urine Dipstick-Ancillary (obtain specimen); Complete Time: 23:00 cp 08/05 22:32 Order name: Urine Test (obtain specimen); Complete Time: 22:59 cp 08/05 22:32 Order name: Orthostatics; Complete Time: 23:40 cp 08/05 22:50 Order name: EKG; Complete Time: 22:51 cp 08/05 22:50 Order name: EKG - Nurse/Tech; Complete Time: 23:40 cp EC/20 23:18 Rate is 96 beats/min. Rhythm is regular. IA interval is normal. QRS interval is normal. cp QT interval is normal. T waves are Inverted in lead aVR. Interpreted by me. Reviewed by me. Administered Medications: 23:30 Drug: NS 0.9% 1000 ml Route: IV; Rate: 1 bolus; Site: right wrist; jb4 08/06 01:07 Drug: Potassium Effervescent Tablet 50 mEq Route: PO; mg2 Disposition: 02:56 Co-signature as Attending Physician, Zackery Issa MD. mh7 Disposition: 08/06/20 00:55 Discharged to Home. Impression: Abnormal uterine and vaginal bleeding, unspecified. - Condition is Stable. - Discharge Instructions: Abnormal Uterine Bleeding. - Medication Reconciliation Form, Thank You Letter, Antibiotic Education, Prescription Opioid Use form. - Follow up: Oj Cano MD; When: 1 - 2 days; Reason: Recheck today's complaints. - Problem is new. - Symptoms have improved. Signatures: Dispatcher [employer] [facility] Nicolle Llanes, RN RN dm5 Francisco Rodriguez PA PA cp Bryson, James, RN RN jb4 Jaime Garibay RN RN mg2 Zackery Issa MD MD mh7 Corrections: (The following items were deleted from the chart) 08/05 23:51 22:32 QUANTITATIVE HCG+C.LAB.BRZ ordered. [facility] 08/06 01:09 00:55 08/06/2020 00:55 Discharged to Home. Impression: Abnormal uterine and vaginal mg2 bleeding, unspecified. Condition is Stable. Forms are Medication Reconciliation Form, Thank You Letter, Antibiotic Education, Prescription Opioid Use. Follow up: Oj Cano; When: 1 - 2 days; Reason: Recheck today's complaints. Problem is new. Symptoms have improved. cp
--- NOTE | 2020-08-06 00:55 | ER ---
Nurse's Notes [facility] Name: Shanna Estrella Age: 25 yrs Sex: Female : 1995 Arrival Date: 08/05/2020 Time: 22:05 Bed 8 Private MD: Diagnosis: Abnormal uterine and vaginal bleeding, unspecified Presentation: 08/05 22:25 Chief complaint: Patient states: dizziness, nausea, spotting started 07/04, regular dm5 menstrual cycle started today but turned out to be heavier than normal. Pt states that she uses Diva cup and that is supposed to be able to be used for 12 hours at a time but she has had to empty it 3 times is 6 hours. Pt also reports right and left lower quadrant pain and upper abdominal tenderness. Coronavirus screen: Client denies travel out of the [place] in the last 14 days. nausea, Client presents with at least one sign or symptom that may indicate coronavirus-19. Standard/surgical mask placed on the client. Ebola Screen: Patient negative for fever greater than or equal to 101.5 degrees Fahrenheit, and additional compatible Ebola Virus Disease symptoms Patient denies exposure to infectious person. Patient denies travel to an Ebola-affected area in the 21 days before illness onset. No symptoms or risks identified at this time. Initial Sepsis Screen: Does the patient meet any 2 criteria? HR > 90 bpm. No. Patient's initial sepsis screen is negative. Does the patient have a suspected source of infection? No. Patient's initial sepsis screen is negative. Risk Assessment: Do you want to hurt yourself or someone else? Patient reports no desire to harm self or others. Onset of symptoms was August 05, 2020. 22:25 Method Of Arrival: Ambulatory dm5 22:25 Acuity: ELI 3 dm5 22:48 Chief complaint: Pt also reports passing out last weekend. 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 Denies injuries from another. Nutritional mg2 screening: No deficits noted. Tuberculosis screening: No symptoms or risk factors identified. Fall Risk IV access (20 points). Assessment: 22:20 General: Appears in no apparent distress. comfortable, Behavior is calm, cooperative, jb4 appropriate for age. Pain: Denies pain. Neuro: Level of Consciousness is awake, alert, obeys commands, Oriented to person, place, time, situation. Cardiovascular: Respiratory: Airway is patent Respiratory effort is even, unlabored, Respiratory pattern is regular, symmetrical. GI: No signs and/or symptoms were reported involving the gastrointestinal system. : Urine is clear, Reports vaginal bleeding that is. EENT: No signs and/or symptoms were reported regarding the EENT system. Derm: Skin is intact, Skin is pink, warm \\T\\ dry. Musculoskeletal: Circulation, motion, and sensation intact. Range of motion: intact in all extremities. 23:00 Reassessment: Patient appears in no apparent distress at this time. Patient and/or jb4 family updated on plan of care and expected duration. Pain level reassessed. Patient is alert, oriented x 3, equal unlabored respirations, skin warm/dry/pink. 23:33 Reassessment: ED donor technician attempted to perform standing orthostatic blood pressure, jb4 pt became unconscious and was assisted back to bed. within approximately 1 minute the pt regained consciousness and was A\\T\\Ox4, ED physician notified. 23:57 Reassessment: Patient appears in no apparent distress at this time. Patient and/or jb4 family updated on plan of care and expected duration. Pain level reassessed. Patient is alert, oriented x 3, equal unlabored respirations, skin warm/dry/pink. Vital Signs: 22:25 BP 138 / 88; Pulse 144; Resp 20; Temp 98.4; Pulse Ox 100% on R/A; Weight 79.83 kg; dm5 Height 5 ft. 1 in. (154.94 cm); Pain 4/10; 23:16 BP 115 / 77 Supine; Pulse 99 LA; oe 23:17 BP 113 / 83 Sitting; Pulse 100; oe 23:30 BP 133 / 106; Pulse 86; Resp 18; Pulse Ox 100% on R/A; mg2 08/06 01:09 BP 126 / 78; Pulse 80; Resp 18; Temp 98; Pulse Ox 100% on R/A; mg2 08/05 22:25 Body Mass Index 33.25 (79.83 kg, 154.94 cm) dm5 ED Course: 08/05 22:05 Patient arrived in ED. am2 22:22 Francisco Rodriguez PA is PHCP. cp 22:22 Zackery Issa MD is Attending Physician. cp 22:45 Triage completed. dm5 22:49 Arm band placed on Patient placed on a stretcher. dm5 22:50 Jaime Garibay, RN is Primary Nurse. mg2 23:09 Ultrasound completed. Patient tolerated well. Notified ENTRY LEVEL ACCOUNT REPRESENTATIVE/PA page. sg3 23:18 US Transvaginal Study (Probe) In Process Unspecified. EDMS 08/06 00:25 CT Head Brain wo Cont In Process Unspecified. EDMS 00:54 Oj Cano MD is Referral Physician. cp 01:09 No provider procedures requiring assistance completed. IV discontinued, intact, mg2 bleeding controlled, No redness/swelling at site. Pressure dressing applied. Administered Medications: 08/05 23:30 Drug: NS 0.9% 1000 ml Route: IV; Rate: 1 bolus; Site: right wrist; jb4 08/06 01:07 Drug: Potassium Effervescent Tablet 50 mEq Route: PO; mg2 Outcome: 00:55 Discharge ordered by MD. cp 01:09 Discharged to home ambulatory, with family. mg2 01:09 Discharged to 01:09 Condition: stable 01:09 Discharge instructions given to patient, family, Instructed on discharge instructions, follow up and referral plans. Demonstrated understanding of instructions, follow-up care. 01:09 Patient left the ED. mg2 Signatures: Dispatcher [employer] EDMS Nicolle Llanes, RN RN dm5 Francisco Rodriguez PA PA cp Bryson, James, RN RN jb4 Max Segal Amanda am2 Kay Burleson sg3 Jaime Garibay, RN RN mg2
[2020-08-06] MEDS ORDERED: POTASSIUM 25 MEQ EFFERV TAB ONE (01:15)
--- NOTE | 2020-08-06 07:34 | EKG ---
Test Date: 2020-08-05 Test Time: 23:10:12 Composite Boat Builder: [place] MEASUREMENT RESULTS: Intervals: Rate: 96 MS: 126 QRSD: 76 QT: 336 QTc: 424 [place]: P: 67 MS: 126 QRS: 45 T: 57 INTERPRETIVE STATEMENTS: Normal sinus rhythm Normal ECG Compared to ECG 08/26/2019 21:57:31 No significant changes Electronically Signed On 08-06-20 07:34:10 HANGAR ATTENDANT by Kody Little
--- NOTE | 2020-08-06 08:05 | RAD REPORT ---
EXAM DESCRIPTION: US - Transvaginal Study Probe - 08/05/2020 11:17 pm CLINICAL HISTORY: Pelvic pain COMPARISON: none FINDINGS: The uterus measures 7 x 3 x 3cm. A fibroid is not seen. The endometrial stripe measures 4 millimeters The right ovaries normal in size and echotexture. Limited evaluation left ovary secondary to overlyin g bowel gas. The right and left adnexa unremarkable No significant free fluid is seen. IMPRESSION: No significant abnormality displayed
--- NOTE | 2020-08-06 11:10 | RAD REPORT ---
EXAM DESCRIPTION: CT - Head Brain Wo Cont - 08/06/2020 3:47 am CLINICAL HISTORY: SYNCOPE TECHNIQUE: Contiguous axial CT images obtained through the brain without IV contrast. Coronal and sa gittal reformatted images were provided. This exam was performed according to our departmental dose-optimization program, which includes autom ated exposure control, adjustment of the mA and/or kV according to patient size and/or use of iterati ve reconstruction technique. COMPARISON: 08/27/2019 FINDINGS: Brain: Agenesis/dysgenesis of the corpus callosum, areas of right parietal encephalomalaci a and low lying cerebellar tonsils again demonstrated. No significant white matter changes. No focal mass effect. De-white matter differentiation is within normal limits. No hemorrhage. Ventricles: Right parietal approach ventriculostomy catheter remains in place. No ventriculomegaly or midline shift. 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 Paranasal sinuses and mastoid air cells: Partial sclerosis of the right mastoid air cells. Minimal ri ght ethmoid sinus mucosal thickening. Vessels: Unremarkable Bones: Prior suboccipital craniectomy. Soft tissues: Unremarkable IMPRESSION: 1. No acute intracranial or extra-axial abnormality. 2. Other findings as above. Electronically signed by: Rose Tyler MD 08/06/2020 12:35 AM BEAMER OPERATOR Due to temporary technical issues with the PACS/Fluency reporting system, reports are being signed by the in house radiologist without review as a courtesy to ensure prompt reporting. The interpreting r adiologist is fully responsible for the content of the report.
[2020-08-07 17:14] VITALS: O2SAT 100
[2020-08-07 17:19] VITALS: BP 126/78; TEMP 98
== END 2020-08-06 01:09 | disposition home or self-care (01) ==
LOC: ER 22:05
DX: N93.9 Abnormal uterine and vaginal bleeding, unspecified (principal); Z88.0 Allergy status to penicillin; Z88.1 Allergy status to other antibiotic agents; Z88.8 Allergy status to other drugs, medicaments and biological substances; Z91.048 Other nonmedicinal substance allergy status
CPT/HCPCS: 36415; 70450; 76830; 80048; 80076; 80307; 81003; 81025; 83690; 84702; 85025; 86850; 86900; 86901; 93005; 99283; J7030

== ENCOUNTER 2020-08-28 10:12 | Emergency (ER) | payer SELFPAY ==
--- OUTSIDE RECORDS SUMMARY | 2020-08-28 10:19 | XMS REPORT | Continuity of Care Document ---
:1995 Author Organization [facility] Care Team Providers Name Role Phone [facility] Unavailable Un available Problems Problem Status Onset Classification Date Comments Sourc e Date Reported Discharge 07/16/20 07/19/2016 Diagnosis: Acute 16 Lauren theast cervical sprain OTHER Active 07/15/20 [facility] [place] POSSIBLE Active 07/11/20 [facility] MALFUNCTION COAT OPERATOR INSULATOR 16 Medic al [facility] HEADACHE Active 07/11/[address] Chiari Active Problem 09/11/2019 [facility] malformation Neuro (disorder) Chiari Resolved Problem 09/11/2019 [facility] malformation Neuro,M H type II [place] (disorder) [facility] 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) Hydrocephalus Active Problem 09/11/2019 Misch er (disorder) Neuro,[facility] Depressive Resolved Problem 09/11/2019 [facility] disorder Neuro, (disorder) [facility] [place],[facility] Simple obesity Active Problem 09/11/2019 Misc her (disorder) Neuro Posttraumatic Resolved Problem 09/11/2019 Misch er stress disorder Neur o, (disorder) [facility] [place],[facility] HEADACHE Active [facility] Medications Medication Details Route Status Patient Ordering Order Source Instructions Provider Date oxcarbazepine 150 mg = 1 tab, Active adalid 150 MG Oral PO, BID, # 60 2019 Neuro Tablet tab, 3 [Trileptal] Refill(s), Pharmacy: [facility] 149 Ketorolac 60 mg, Route: No Longer 07/16[facility] IM, Drug form: Active 2015 [facility] INJ, ONCE, Dosing Weight 84.545, kg, Priority: STAT, Start date: 07/15/16 23:21:00 PHP [employer]ORD[employer] DEVELOPER, Stop date: 07/15/16 23:21:00 PHP [employer] DEVELOPER Valium 5 mg, Route: No Longer 07/16[facility] IM, Drug form: Active 2015 [facility] INJ, ONCE, Dosing Weight 84.545, kg, Priority: STAT, Start date: 07/15/16 23:21:00 PHP WORDPRESS DEVELOPER, Stop date: 07/15/16 23:21:00 PHP [employer] DEVELOPER Ativan Notes: (Same No Longer [facility] as: Ativan) Active 2015 [facility] nystatin Notes: (Same No Longer [place] topical 100,000 as:Mycostatin, Active 2015 edical units/g cream Nilstat) For Cent er external use only. Nystatin 312725 1 appl, Route: Inactive [facility] UNT/ML / TOP, TID, Drug 2015 [facility] Triamcinolone form: CRM, [place] Acetonide 1 Start date: MG/ML Topical 07/13/16 Cream 9:00:00 PHP WORDPRESS DEVELOPER, Duration: 30 day, Stop date: 08/11/16 17:00:00 PHP [employer] DEVELOPER Sodium Chloride 250 mL, 250 Inactive [facility] 0.154 MEQ/ML ml/hr, Infuse 2015 Medic al Injectable Over: 1 hr, [place] Solution Route: IV, 250, Drug form: INJ, ONCE, Priority: STAT, Dosing Weight 84.545 kg, Start date: 07/12/16 16:18:00 PHP WORDPRESS DEVELOPER, Duration: 1 doses or times, Stop date: 07/12/16 16:18:00 PHP [employer] DEVELOPER Promethazine Notes: Do not No Longer [facility] give IV push. Active 2015 Medical (Same as: [place] Phenergan) Docusate Notes: (Same No Longer [facility] as: Colace) (Do Active 2015 Medical Not Crush) [place] sennosides, LONG-TERM Notes: (Same No Longer [facility] as: Senokot) Active 2015 [facility] Saline Flush Notes: (Same No Longer [place] 0.9% as: BD Active 2015 Medical Posiflush) [place] tramadol 50 mg = 1 tab, Active [place] hydrochloride PO, Q4H, PRN 2015 Medic al 50 MG Oral for pain, X 10 Center Tablet [Ultram] day, # 60 tab, 0 Refill(s) tramadol Notes: [place] to [place]er [place] hydrochloride exceed Active 2015 Medical 50 MG Oral 400mg/day. [place] Tablet [Ultram] (Same As: Ultram) tramadol 50 mg = 1 tab, [place] hydrochloride PO, Q4H, PRN 2016 Medic al 50 MG Oral for pain, X 10 Center Tablet [Ultram] day, # 60 tab, 0 Refill(s) senna 8.6 mg 8.6 mg = 1 tab, Active [place] oral tablet PO, Q12H, X 14 2016 Medic al day, # 28 tab, Center 0 Refill(s) Docusate Sodium 100 mg = 1 cap, Active [place] 100 MG Oral PO, Q12H, # 28 2016 Medic al Capsule cap, 0 Center Refill(s) Regular 60 units) No Longer [place] Insulin, Human WASTE: F/P - Active 2015 Medi gerry 100 UNT/ML Black; E - Center Injectable Municipal Trash Solution Bin Stable for 28 days at room temperature Expires in days from D ate Dextrose 50% 25 gm, 50 mL, No Longer [place] Syringe Route: IVP, Active 2015 Medical Drug Form: INJ, Center Dosing Weight 84.545, kg, PRN, PRN Abnormal Lab Result, Start date: 07/11/16 22:18:00 PHP WORDPRESS DEVELOPER, Duration: 30 day, Stop date: 08/10/16 22:17:00 PHP WORDPRESS DEVELOPER Bisacodyl Notes: (Same [place] Longer [place] As: Dulcolax, Active 2015 Medical Bisco-Lax) [place] Saline Flush Notes: (Same No Longer [place] 0.9% as: BD Active 2015 Medical Posiflush) Center Ondansetron Notes: (Same [place] Long[place]: Zofran) Active 2015 Medical MEDICATION Center WASTE Product Size: 4 mg Product Wasted: _0__ mg Acetaminophen Notes: Do not No Longer [place] 325 MG / exceed 4gm/day Active 2015 Medical Hydrocodone of Center Bitartrate 10 acetaminophen. MG Oral Tablet (Same as: [place] 325/10) Acetaminophen Notes: (Same No Longer [place] 325 MG / as: [place] Active 2015 Medical Hydrocodone 325/5) Do not Cente r Bitartrate 5 MG exceed 4gm/day Oral Tablet of acetaminophen. Sodium Chloride 1,000 mL, Rate: No Longer [facility] 0.154 MEQ/ML 75 ml/hr, Active 2015 Medical Injectable Infuse over: Center Solution 13.3 hr, Route: IV, Dosing Weight 84.545 kg, Total Volume: 1,000, Start date: 07/11/16 22:18:00 PHP WORDPRESS DEVELOPER, Duration: 30 day, Stop date: 08/10/16 22:17:00 PHP WORDPRESS DEVELOPER Reglan Notes: (Same Inactive [facility] as: Reglan) 2015 [facility] Sodium Chloride 1,000 mL, 1,000 Inactive [facility] 0.154 MEQ/ML ml/hr, Infuse 2015 Medic al Injectable Over: 1 hr, Center Solution Route: IV, 1,000, Drug form: INJ, ONCE, Priority: STAT, Dosing Weight 84.545 kg, Start date: 07/11/16 20:59:00 PHP WORDPRESS DEVELOPER, Duration: 1 doses or times, Stop date: 07/11/16 20:59:00 PHP WORDPRESS DEVELOPER Acetaminophen Notes: Max Inactive [place] acetaminophen [...] Protein CSF 34 15 - 45 07/13 [facility] BODY FLUIDS Color CSF Colorless Colorless 07/13 [place] (07/13/16 7:35 AM) [facility] BODY FLUIDS Clarity CSF Clear Clear 07/13 (07/13/16 7:35 AM) [facility] BODY FLUIDS Tube Num CSF xxxxxxx 07/13 [place] (07[place]13/16 7:35 AM) Medic [facility] [place] BODY FLUIDS RBC CSF 0 0 - 03 07/13 [facility] BODY FLUIDS Supernat CSF Colorless Colorless 07/13 [place] (07/13/16 7:35 AM) Medic al Center BODY FLUIDS WBC CSF 1 0 - 53 07/13 [facility] BODY FLUIDS Glucose CSF 56 45 - 80 07/13 [facility] IMMUNOLOGY PE Interp CSF CSF 07/13 [place] [facility] resis did not reveal evidence of an oligoclona l process in the CNA PCT. The CSF IgG index is within the [...] concur with the resident's interpreta tion. CPT: 26645-TN IMMUNOLOGY Description The gel 07/13 [facility] CSF demonstr [facility] appropriat e resolution of the main protein bands. The gamma region shows continuous distributi on of proteins both in the CSF and in the serum. No oligoclona l bands are detected. IMMUNOLOGY IgG (CPE) 1010 694 - 1618 07/13 [facility] IMMUNOLOGY Alb (CPE) 4100.0 3400.0 - 07/13 [facility] 5000.0 [facility] IMMUNOLOGY IgG Lvl CSF 1.7 2.0 - 4.0 07/13 [place] /2015 [facility] IMMUNOLOGY Alb CSF (CPE) 14.7 14.0 - 07/13 [place] 25. [facility] IMMUNOLOGY IgG Index 0.5 0.3 - 0.7 07/13 [facility] CHEM PANEL eGFR 128 07/13 Result Comment: [...] Calcium Lvl 8.8 8.5 - 10.5 07/13 [facility] CHEM PANEL CO2 23 24 - 32 07/13 [facility] CHEM PANEL Chloride Lvl 108 95 - 109 07/13 [facility] CHEM PANEL Creatinine 0.61 0.50 - 07/13 [place] Lvl 1.40 [facility] CHEM PANEL Sodium Lvl 142 135 - 145 07/13 [facility] CHEM PANEL BUN 7 7 - 22 07/13 [facility] CHEM PANEL Potassium Lvl 3.9 3.5 - 5.1 07/13 [facility] CHEM PANEL Glucose Lvl 88 70 - 99 07/13 [facility] CHEM PANEL AGAP 14.9 10.0 - 07/13 20.0 [facility] HEMATOLOGY Lymphocytes 37.9 20.0 - 07/13 40.0 [facility] HEMATOLOGY Segs 52.1 45.0 - 07/13 [place] 75.0 [facility] HEMATOLOGY Monocytes 7.3 2.0 - 12.0 07/13 [facility] HEMATOLOGY Basophils 0.8 0.0 - 1.0 07/13 [facility] HEMATOLOGY Eosinophils 1.9 0.0 - 4.0 07/13 [facility] HEMATOLOGY Segs-Bands # 3.8 1.5 - 8.1 07/13 [facility] HEMATOLOGY Eosinophils # 0.1 0.0 - 0.5 07/13 [facility] HEMATOLOGY Monocytes # 0.5 0.0 - 0.8 07/13 [facility] HEMATOLOGY Lymphocytes # 2.7 1.0 - 5.5 07/13 [facility] HEMATOLOGY Basophils # 0.1 0.0 - 0.2 07/13 [facility] HEMATOLOGY RBC 4.53 4.20 - 07/13 [place] 5.40 [facility] HEMATOLOGY WBC 7.2 3.7 - 10.4 07/13 [facility] HEMATOLOGY Hct 38.5 36.0 - 07/13 [place] 48.0 [facility] HEMATOLOGY Hgb 13.0 12.0 - 07/13 [place] 16.0 /2015 [facility] HEMATOLOGY MCHC 33.9 32.0 - 07/13 [place] 36.0 /2015 [facility] HEMATOLOGY MCH 28.8 27.0 - 07/13 [place] 31.0 /2015 [facility] HEMATOLOGY RDW 14.0 11.5 - 07/13 [place] 14.5 /2015 [facility] HEMATOLOGY MPV 9.2 7.4 - 10.4 07/13 [facility] HEMATOLOGY Platelet 283 133 - 450 07/13 /2015 [facility] HEMATOLOGY MCV 84.9 80.0 - 07/13 [place] 98.0 /2015 [facility] HEMATOLOGY INR 0.96 0.85 - 07/13 [place] 1.17 /2015 [facility] HEMATOLOGY PTT 31.9 22.9 - 07/13 [place] 35.8 /2015 [facility] HEMATOLOGY PT 13.0 12.0 - 07/13 [place] 14.7 /2015 [facility] CARDIAC Troponin-T <0.010 0.000 - 07/12 [facility] ENZYMES 0.100 /2015 [facility] CARDIAC Total CK 33 12 - 191 07/12 [facility] ENZYMES /2015 [facility] MYOGLOBIN Myoglobin 35 25 - 72 07/12 [facility] DRUG SCREEN U Phencyc Scr Negative Negative [...] HEMATOLOGY Platelet 306 133 - 450 07/12 [facility] HEMATOLOGY RDW 13.5 11.5 - 07/12 [place] 14.5 [facility] HEMATOLOGY MPV 9.3 7.4 - 10.4 07/12 [facility] HEMATOLOGY RBC 4.46 4.20 - 07/12 [place] 5.40 /2015 [facility] HEMATOLOGY Hgb 12.6 12.0 - 07/12 [place] 16.0 [facility] HEMATOLOGY Hct 37.4 36.0 - 07/12 [place] 48.0 [facility] HEMATOLOGY MCV 83.9 80.0 - 07/12 [place] 98.0 /2015 [facility] HEMATOLOGY WBC 9.4 3.7 - 10.4 07/12 [facility] HEMATOLOGY MCH 28.3 27.0 - 07/12 [place] 31.0 [facility] HEMATOLOGY MCHC 33.8 32.0 - 07/12 [place] 36.0 /2015 [facility] HEMATOLOGY PTT 33.7 22.9 - 07/12 [place] 35.8 /2015 [facility] HEMATOLOGY INR 1.02 0.85 - 07/12 [place] 1.17 [facility] HEMATOLOGY PT 13.6 12.0 - 07/12 [place] 14.7 [facility] HEMATOLOGY Segs-Bands # 5.5 1.5 - 8.1 07/12 [facility] HEMATOLOGY Monocytes # 0.6 0.0 - 0.8 07/12 [facility] HEMATOLOGY Lymphocytes # 3.0 1.0 - 5.5 07/12 [place] [facility] HEMATOLOGY Basophils # 0.1 0.0 - 0.2 07/12 [facility] HEMATOLOGY Eosinophils # 0.1 0.0 - 0.5 07/12 [place] [facility] HEMATOLOGY Basophils 0.9 0.0 - 1.0 07/12 [facility] HEMATOLOGY Segs 58.7 45.0 - 07/12 [place] 75.0 [facility] HEMATOLOGY Lymphocytes 32.5 20.0 - 07/12 [place] 40.0 [facility] HEMATOLOGY Monocytes 6.5 2.0 - 12.0 07/12 [facility] HEMATOLOGY Eosinophils 1.4 0.0 - 4.0 07/12 [place] [facility] URINE AND UA WBC 1 0 - 5 07/12 [facility] STOOL [facility] URINE AND Micro? Not Indicated 07/12 [facility] [place] [facility] *NA* /2015 Medical (07/12/16 12:39 AM) Cent er URINE AND UA <=1.0 0.1 - 1.0 07/12 [facility] [place] [facility] Urobilinogen mg/dL [facility] URINE AND UA Protein Negative Negative 07/12 [facility] STOOL mg/dL mg/dL [facility] URINE AND UA Glucose Negative Negative 07/12 [facility] [place] [facility] mg/dL mg/dL [facility] URINE AND UA Turbidity Clear Clear 07/12 [facility] [place] [facility] (07/12/16 12:39 AM) [facility] URINE AND UA Spec Grav 1.011 <=1.030 07/12 [facility] [place] [facility] URINE AND UA pH 6.5 5.0 - 8.0 07/12 [facility] URINE AND UA Color Yellow Yellow 07/12 [facility] [place] [facility] *NA* /2015 Medical (07/12/16 12:39 AM) Cent er URINE AND UA Sq Epi Moderate Few /LPF 07/12 [facility] STOOL /LPF /2015 [facility] URINE AND UA Leuk Est Negative Negative 07/12 [facility] STOOL (07/12/16 12:39 AM) [facility] URINE AND UA Ketones Negative Negative 07/12 [facility] STOOL mg/dL mg/dL [facility] URINE AND UA Bili Negative Negative 07/12 [facility] STOOL *NA* /2015 Medical (07/12/16 12:39 AM) Cent er URINE AND UA Blood Negative Negative 07/12 [facility] [place] [facility] (07/12/16 12:39 AM) [facility] URINE AND UA Nitrite Negative Negative 07/12 [facility] STOOL (07/12/16 12:39 AM) [facility] URINE CHEM U Preg Negative Negative 07/12 [place] (07/12/16 12:39 AM) [facility] BLOOD BANK Antibody Scrn Negative 07/12 [place] [facility] RESULTS (07/11/16 11:50 PM) [facility] BLOOD BANK ABO/Rh A POS 07/12 [place] RESULTS [facility] CHEM PANEL Glucose Lvl 93 70 - 99 07/12 [facility] CHEM PANEL AGAP 15.5 10.0 - 07/12 [place] 20.0 [facility] CHEM PANEL eGFR 113 07/12 Result Comment: [facility] eGFR is Center calculated using the CKD-EPI [...] Sodium Lvl 142 135 - 145 07/12 [facility] CHEM PANEL Creatinine 0.75 0.50 - 07/12 [facility] Lvl 1.40 [facility] CHEM PANEL BUN 6 7 - 22 07/12 [facility] CHEM PANEL Calcium Lvl 8.8 8.5 - 10.5 07/12 [place] [facility] CHEM PANEL CO2 26 24 - 32 07/12 [facility] CHEM PANEL Potassium Lvl 3.5 3.5 - 5.1 07/12 [place] [facility] CHEM PANEL Chloride Lvl 104 95 - 109 07/12 [place] [facility] Pathology Reports No Data Provided for This Section Diagnostic Reports Report Value Date Source Brain shunt series Clinical Indication:21 years Female with Pain and swelling 07/15/2016 [place] DX Comparison: Shunt study 07/12/2016 FINDINGS: Radiographs of the right COAT OPERATOR INSULATOR shunt obtained from the skull to the abdomen. Unchanged appearance of the COAT OPERATOR INSULATOR shunt, which goes from the right lateral ventricle along the right neck, traverses the right upper chest to the left lower chest, and terminates in the left upper quadrant. No discontinuity of the COAT OPERATOR INSULATOR shunt. An orphaned COAT OPERATOR INSULATOR shunt catheter of the right chest is again noted. IMPRESSION: Unchanged appearance of righ t COAT OPERATOR INSULATOR shunt. No discontinuity of the shunt catheter or other significant radiographic abnormality. Brain w/wo contrast Exam: MRI brain without and with contrast. 1 09/12/2015 [facility] MRI Exam: CSF flow study. Center [...] Exam: MRI brain without and with contrast. [facility] MRI Exam: CSF flow study. Center [...] CT EXAM: CT HEAD WITHOUT CONTRAST 07/13/2016 [facility] [place] [facility] DATE: 07/13/2016 INDICATION: 21 years old Fem evelyn patient with history of COAT OPERATOR INSULATOR shunt placement, now complaining of headache. TECHNIQUE: Multiple axial im ages were obtained through the head from vertex to the skull base. Axial bone algorithm reconstruction images are provided. COMPARISON: Prior CT Scan of the head dated 06/18 147 AM PHP WORDPRESS DEVELOPER DISCUSSION: Again identified is a right parietal approach COAT OPERATOR INSULATOR shunt catheter with distal tip lies within [...] e. 2. Stable right parietal vania yadav COAT OPERATOR INSULATOR shunt catheter with adequately decompressed ventricular system. 3. 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 Chest 1view DX EXAM: XR CHEST 1 VIEW 07/12/2016 [facility] edical DATE: 07/12/2016 4:10 PM PHP WORDPRESS DEVELOPER Debra ter INDICATION: Chest pain COMPARISON: Yesterday TECHNIQUE: AP chest FINDINGS: Abandoned and calc ified discontinuous COAT OPERATOR INSULATOR shunt tubing is redemonstrated over the right lower neck and anterior chest, coursing over the upper abdomen. Additional COAT OPERATOR INSULATOR shunt tubing is seen over t he right neck, extending ove r the midline chest and left upper quadrant; distal tubing is not well seen. Stable cardiomediastinal silhouette. No new pulmonary or pleural based abnormalities. IMPRESSION: No significant change. Brain shunt series EXAM: XR SHUNT SERIES 07/12/2016 [facility] Center DATE: 07/12/2016 7:03 AM PHP WORDPRESS DEVELOPER INDICATION: Headache(s) ADDITIONAL INFORMATION: None. COMPARISON: Brain [...] the L3 level. IMPRESSION: 1. Right programmable COAT OPERATOR INSULATOR shunt with unremarkabl e appearance. 2. There is an orphaned arlyn nt catheter along the right thorax and left abdomen. Skull 1 view DX EXAM: XR SKULL 1 VIEW 07/12/2016 [facility] edical DATE: 07/12/2016 7:03 AM PHP WORDPRESS DEVELOPER Debra ter INDICATION: Headache(s) COMPARISON: None TECHNIQUE: AP radiographs of the skull with 2 i mages DISCUSSION: A delta valve sh unt catheter is present with the tip of the delta aligned between the 2 radiopaque markers. The visualized portions of the catheter appear intact. IMPRESSION: Delta valve in place Brain wo contrast CT EXAM: CT HEAD WITHOUT CONTRAST 07/12/2016 [facility] DATE: 07/12/2016 147 AM PHP WORDPRESS DEVELOPER Cent er INDICATION: 21 years old Fem evelyn patient with history of COAT OPERATOR INSULATOR shunt placement, now complaining of headache. TECHNIQUE: Multiple axial im ages were obtained through the head from vertex to the skull base. Axial bone algorithm reconstruction images are provided. COMPARISON: Prior outside hospital CT Scan of th e head dated 07/11/2016 DISCUSSION: Again identified is a right parietal approach COAT OPERATOR INSULATOR shunt catheter with distal tip lies within [...] e. 2. Stable right parietal vania yadav COAT OPERATOR INSULATOR shunt catheter with adequately decompressed ventricular system. 3. 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 Chest 1view DX EXAM: XR CHEST 1 VIEW 07/11/2016 [facility] edical DATE: 07/11/2016 2230 hours Cent er INDICATION: [place] COMPARISON: Chest radiograph 07/11/2016 TECHNIQUE: AP chest FINDINGS: Lines and tubes: Abandoned a nd calcified discontinuous COAT OPERATOR INSULATOR shunt tubing is redemonstrated over the right lower neck and anterior chest, coursing over the upper abdomen. Additional COAT OPERATOR INSULATOR shunt tubing is seen over the right [...] No acute cardiopulmonary abnormality. 2. Partially visualized COAT OPERATOR INSULATOR shunt tubing as disc ussed above. Consultation Notes No Data Provided for This Section Discharge Summaries No Data Provided for This Section History and Physicals No Data Provided for This Section Vital Signs Vital Sign Value Date Comments Source Systolic (mm Hg) 105 07/27/2019 [facility] [place] Diastolic (mm Hg) 69 07/27/2019 [facility] [place] uro Heart Rate 85 07/27/2019 [facility] Neuro Respitory Rate 16 07/27/2019 [facility] Neuro Height 160.02 cm 07/27/2019 [facility] Neuro Weight 85.455 07/27/2019 [facility] Neuro BMI Calculated 33.37 07/27/2019 [facility] Neuro Respitory Rate 16 07/16/2016 [...] 07/16/[address] Respitory Rate 12 07/14/2016 [facility] Center Temperature Oral (F) 97.9 F 07/14/2016 [facility] Systolic (mm Hg) 111 07/14/2016 [facility] dical Center Diastolic (mm Hg) 72 07/14/2016 [facility] Respitory Rate 16 07/14/2016 [facility] Center Systolic (mm Hg) 117 07/14/2016 [facility] dical Center Diastolic (mm Hg) 79 [facility] Resp[facility] Rate 13 07/14/2016 [facility] Systolic (mm Hg) 110 07/14/2016 [facility] [place] Diastolic (mm Hg) 61 07/14/2016 [facility] Heart Rate 84 07/14/2016 [facility] Heart Rate 75 07/14/2016 [facility] Heart Rate 81 07/14/2016 [facility] Temperature Oral (F) 98.0 F 07/13/2016 [facility] Temperature Oral (F) 98.1 F 07/13/2016 [facility] Weight 84.545 07/12/2016 [facility] Weight 84.545 07/12/2016 [facility] Height 152.4 cm 07/12/2016 [facility] BMI Calculated 36.4 07/12/2016 [facility] Encounters Location Location Encounter Encounter Reason Attending ADM DC Stat us Source Details Type Number For Provider Date Date Visit [facility] [id number] [place] 07/12 07/14 [facility] Brianne /2015 [facility] [id number] [place] 07/16 07/16 [facility] [place] /2015 [facility] Outpatient [id number] [place] 07/27 [facility] Outpatient [id number] [place] 07/27 07/28 [facility] [id number] [place] 08/12 Active [facility] [place] [facility] Ambulatory [id number] [place] 08/12 08/12 [facility] Out[facility] [id number] [place] 09/08 Active [facility] [place] [facility] Ambulatory [id number] [place] 09/08 09/08 [facility] [id number] [place] 09/09 Active [facility] Ambulatory [id number] [place] 09/09 09/09 [facility] Procedures Procedure Code Date Perfomer Comments Source Creation of COAT OPERATOR INSULATOR [id number] Assessment and Plan Assessment and Plan Date Source Extracted from:Title: Neurology consult note 07/14/2016 [facility] Author: Keiko Del Rosario MD Date: 07/13/16 [...] was few months ago , her last COAT OPERATOR INSULATOR shunt revision was 10 years ago. Britta [...] Agenesis of corpus collosum, Chiari II, s/p COAT OPERATOR INSULATOR shunt Past Surgical History: COAT OPERATOR INSULATOR shunt Family History: Noncontirbutory Social History: smokes [...] no leukocytosis Diagnostic Tests CT- Brain stable COAT OPERATOR INSULATOR shunt, nothing to compare MRI Brain: not available Assessment: 21 y/o female with PMH of agenesis of co rpus collosum, chiari II s/p COAT OPERATOR INSULATOR shunt , h/o seizure presented with BL ocipital headache for past 2 days with photophobia and nausea. neurology consulted for se izure evaluation. On exam has no visual field defect , mild LE weakness BL. Patient was evalauted with ophthalmology , neurosurgery also is evaluating for headache cause which can be due to COAT OPERATOR INSULATOR shunt mal function , although no ventriculomegaly for now but will rep eat CT in AM Plan: Regarding seizure standpoaint, patient d oes not look like to have seizure in this episode. but it is worthed to do routine EEG. HEadache seems to be due to COAT OPERATOR INSULATOR shunt mal function , managed per neurosurgery team Neurology will follow - We recommend the patient be admitted for observation under neurosurgery The case was discussed with the Neurolog y Consult attending ___Marlon . Thank you for this interesting consult, the neurology consult team will continue to follow with you. Please page [phone] should you have any queries or concerns. Keiko Del Rosario MD Resident PGY-2 [facility] Neurology Pager number [phone] ADDENDUM In addition to the information provided [...] continue to follow with you. Please page [phone] should you have any queries or concerns. ---- Dwight Metcalf MD, MPH. PGY-1 Psychiatry Slot Machine Repairer Neuro Consult Service 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 Danyel Schneider MD Artist Relationship Manager of Neurology. Pager:[phone] Plan of Care No Data Provided for [...] entered on: 07/27/19 Social History TypeResponse 07/16/2016 [facility] Smoking Status Reg Smoking Cessation Counseling No; Cur rent every day smoker; Type: Cigarettes; Ready to change: No; Concerns about tobacco use in household: No; Exposure to Tobacco Smoke None; Cigarette Smoking Last 365 Days Yes Social History TypeResponse 07/16/2016 [facility] Smoking Status Reg Smoking Cessation Counseling No; [...]
--- OUTSIDE RECORDS SUMMARY | 2020-08-28 10:20 | XMS REPORT | Continuity of Care Document ---
:1995 Author Organization [facility] t Address [address] [place] [address] Care Team Providers Name Role Phone Doctor Unassigned, Name Attending Clinician Unavailable Rolan Figueroa Attending Clinician Renata Chung Attending Clinician Brianne Yost Attending Clinician Brianne Yost Admitting Clinician Problems Condition Condition Condition Status Onset Resolution Last Treating Co mments Source Name Details Category Date Date Treatment Clinician Date OTHER Diagnosis Active 2015-082016-07-15 Mem oria 09-14 22:55:00 l OTHER 00:00: [place] 00 Active 07/15/2016 [facility] POSSIBLE Diagnosis Active 2015-082016-07-11 M emoria MALFUNCTIO 09-10 22:33:00 l N MACHINE FANCY STITCHER SHUNT POSSIBLE 00:00: Juan edge MALFUNCTIO 00 N MACHINE FANCY STITCHER SHUNT Active 07/11/2016 [facility] HEADACHE Diagnosis Active 2015-082016-07-14 M emoria 09-10 08:24:00 l HEADACHE 00:00: Ernie n 00 Active 07/11/2016 [facility] 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) Resolved Problem 09/11/2019 [facility] Depressive Problem Resolve 2019-09-11 Memoria disorder d 22:27:01 l (disorder) Ernie n Depressive disorder (disorder) Resolved Problem 09/11/2019 [facility] Posttrauma Problem Resolve 2019-09-11 Memoria tic stress d 22:27:01 l disorder [place] (disorder) Posttrauma tic stress disorder (disorder) Resolved Problem 09/11/2019 [facility] Chiari Problem Active 2019-09-11 Memor ia malformati 22:27:01 l on Chiari [place] (disorder) malformati on (disorder) Active Problem 09/11/2019 [facility] 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) Active Problem 09/11/2019 [facility] Neuro Hydrocepha Problem Active 2019-09-11 M emoria willam 22:27:01 l (disorder) Ernie n Hydrocepha willam (disorder) Active Problem 09/11/2019 [facility] Neuro,[facility] Simple Problem Active 2019-09-11 Memor ia obesity 22:27:01 l (disorder) Simple Herm abran obesity (disorder) Active Problem 09/11/2019 [facility] Neuro Discharge Problem 2015-082016-07-19 2016-07-19 Memoria Diagnosis: 09-15 04:14:28 04:14:28 l Acute 06:00: [place] cervical Discharge 00 sprain Diagnosis: Acute cervical sprain 07/16/2016 07/19/2016 [facility] Allergies, Adverse Reactions, Alerts Allergy Allergy Status Severity Reaction(s) Onset Inactive Treating Comm ents Source Name Type Date Date Clinician penicill penicill Active Memori a ins ins l [place] amoxicil amoxicil Active Memori a clovis clovis l [place] [facility] Medical Active Memoria Tape Tape l [place] LaMICtal LaMICtal Active Memori a l [place] Social History Smoking Status Start Date Stop [...] ermann [Trileptal] 00 tab, 3 Refill(s), Pharmacy: [place] [id number] Ketorolac 2015-08 No 60 mg, Memori a 09-15 Route: IM, l 05:21: Drug form: [place] 00 INJ, ONCE, Dosing Weight 84.545, kg, Priority: STAT, Start date: 07/15/16 23:21:00 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 Nystatin 2015-08 No 1 appl, Memori a [id number] 09-12 Route: l UNT/ML / 15:00: TOP, TID, Eusebio abran Triamcinolo 00 Drug form: ne CRM, Start Acetonide 1 date: MG/ML 07/13/16 Topical 9:00:00 Cream LAND LEASE INFORMATION CLERK, Duration: 30 day, Stop date: 08/11/16 17:00:00 LAND LEASE INFORMATION CLERK Sodium 2015-08 No 250 mL, Memoria Chloride 09-11 250 ml/hr, l 0.154 22:18: Infuse [place] MEQ/ML 00 Over: 1 Injectable hr, Route: Solution IV, 250, Drug form: INJ, ONCE, Priority: STAT, Dosing Weight 84.545 kg, Start date: 07/12/16 16:18:00 LAND LEASE INFORMATION CLERK, Duration: 1 doses or times, Stop date: 07/12/16 16:18:00 LAND LEASE INFORMATION CLERK Promethazin 2015-08 No Notes: Do M emoria e 09-11 not give l 22:17: IV push. [place] 00 (Same as: Phenergan) Docusate 2015-08 No Notes: Memoria 09-11 (Same as: l 15:00: Colace) [place] (Do Not Crush) sennosides, 2015-08 No Notes: Sami stefani FPC 09-11 (Same as: l 15:00: Senokot) [place] Saline 2015-08 No Notes: Memoria Flush 0.9% 09-11 (Same as: l 15:00: BD [place] Posiflush) tramadol 2015-08 Yes 50 mg = 1 Sami stefani hydrochlori 09-11 tab, PO, l de 50 MG 13:15: [...] 1-26 mL, Route: l 04:18: IVP, Drug [place] Form: INJ, Dosing Weight 84.545, kg, PRN, PRN Abnormal Lab Result, Start date: 07/11/16 22:18:00 LAND LEASE INFORMATION CLERK, Duration: 30 day, Stop date: 08/10/16 22:17:00 LAND LEASE INFORMATION CLERK Bisacodyl 2015-08 No Notes: Memori a 09-11 (Same As: l 04:18: Dulcolax, [place] 00 Bisco-Lax) Saline 2015-08 No Notes: Memoria Flush 0.9% 09-11 (Same as: l 04:18: BD [place] 00 Posiflush) Ondansetron 2015-08 No Notes: Sami stefani 09-11 (Same as: l 04:18: Zofran) [place] 00 MEDICATION WASTE Product Size: 4 mg Product Wasted: _0__ mg Acetaminoph 2015-08 No Notes: Do M emoria en 325 MG / 09-11 not exceed l Hydrocodone 04:18: 4gm/day of [place] Bitartrate 00 acetaminop 10 MG Oral hen. Tablet (Same as: [place] 325/10) Acetaminoph 2015-08 No Notes: Sami stefani en 325 MG / 09-11 (Same as: l Hydrocodone 04:18: [place] Danika nn Bitartrate 00 325/5) Do 5 MG Oral not exceed Tablet 4gm/day of acetaminop hen. Sodium 2015-08 No 1,000 mL, Memori a Chloride 09-11 Rate: 75 l 0.154 04:18: ml/hr, [place] MEQ/ML 00 Infuse Injectable over: 13.3 Solution hr, Route: IV, Dosing Weight 84.545 kg, Total Volume: 1,000, Start date: 07/11/16 22:18:00 LAND LEASE INFORMATION CLERK, Duration: 30 day, Stop date: 08/10/16 22:17:00 LAND LEASE INFORMATION CLERK Reglan 2015-08 No Notes: Memoria 09-11 (Same as: l 02:59: Reglan) [place] 00 Sodium 2015-08 No 1,000 mL, Memori a Chloride 09-11 1,000 l 0.154 02:59: ml/hr, [place] MEQ/ML 00 Infuse Injectable Over: 1 Solution hr, Route: IV, 1,000, Drug form: INJ, ONCE, Priority: STAT, Dosing Weight 84.545 kg, Start date: 07/11/16 20:59:00 LAND LEASE INFORMATION CLERK, Duration: 1 doses or times, Stop date: 07/11/16 20:59:00 LAND LEASE INFORMATION CLERK Acetaminoph 2015-08 No Notes: Max Memoria en 09-11 acetaminop l 02:59: hen 4000 [place] 00 mg/day (4 gm/day). (Same as: Tylenol Extra Strength) Vital Signs Vital Name Observation Time Observation Value Comments Source Systolic (mm Hg) 2019-07-27 20:13:00 Sami rial [place] Diastolic (mm Hg) 2019-07-27 20:13:00 Mem orial [place] Heart Rate 2019-07-27 20:13:00 [facility] [place] Respitory Rate 2019-07-27 20:13:00 Memori al [place] Height 2019-07-27 20:13:00 160.02 cm [facility] [place] Weight 2019-07-27 20:13:00 [facility] [place] BMI Calculated 2019-07-27 20:13:00 Memori al [place] Respitory Rate 2016-07-16 07:16:00 Memori al [place] Systolic (mm Hg) 2016-07-16 07:16:00 Sami rial [place] Diastolic (mm Hg) 2016-07-16 07:16:00 Mem orial [place] Temperature Oral (F) 2016-07-16 07:16:00 98.2 F [facility] [place] Temperature Oral (F) 2016-07-16 05:06:00 98.6 F [facility] [place] Respitory Rate 2016-07-16 05:06:00 Memori al [place] Diastolic (mm Hg) 2016-07-16 05:06:00 Mem orial [place] Systolic (mm Hg) 2016-07-16 05:06:00 Sami rial [place] Weight 2016-07-16 04:31:00 [facility] [place] Respitory Rate 2016-07-16 04:31:00 Memori al [place] Heart Rate 2016-07-16 04:31:00 [facility] [place] Temperature Oral (F) 2016-07-16 04:31:00 98.8 F [facility] [place] BMI Calculated 2016-07-16 04:31:00 Memori al [place] Height 2016-07-16 04:31:00 154.94 cm [facility] [place] Systolic (mm Hg) 2016-07-16 04:31:00 Sami rial [place] Diastolic (mm Hg) 2016-07-16 04:31:00 Mem orial [place] Respitory Rate 2016-07-14 16:00:00 Memori al [place] Temperature Oral (F) 2016-07-14 15:41:00 97.9 F [facility] [place] Systolic (mm Hg) 2016-07-14 15:00:00 Sami rial [place] Diastolic (mm Hg) 2016-07-14 15:00:00 Mem orial [place] Respitory Rate 2016-07-14 15:00:00 Memori al [place] Systolic (mm Hg) 2016-07-14 14:00:00 Sami rial [place] Diastolic (mm Hg) 2016-07-14 14:00:00 Mem orial [place] Respitory Rate 2016-07-14 14:00:00 Memori al [place] Systolic (mm Hg) 2016-07-14 13:00:00 Sami rial [place] Diastolic (mm Hg) 2016-07-14 13:00:00 Mem orial [place] Heart Rate 2016-07-14 05:38:00 [facility] [place] Heart Rate 2016-07-14 05:19:00 [facility] [place] Heart Rate 2016-07-14 05:04:00 [facility] [place] Temperature Oral (F) 2016-07-13 18:30:00 98.0 F [facility] [place] Temperature Oral (F) 2016-07-13 14:00:00 98.1 F [facility] [place] Weight 2016-07-12 06:59:00 [facility] [place] Weight 2016-07-12 02:34:00 [facility] [place] Height 2016-07-12 02:34:00 152.4 cm [facility] [place] BMI Calculated 2016-07-12 02:34:00 Memori al [place] Procedures Procedure Date / Time Performed Performing Clinician [facility] e Creation of MACHINE FANCY STITCHER shunt Memorial rmann Encounters Start End Encounter Admission Attending Care Care Encounter Source Date/Time Date/Time Type Type Clinicians Facility Department ID 2019-09-28 2019-09-28 Orders Doctor CATARINO [id number] 00:00:00 00:00:00 Only Unassigned, JANNIE [id number] [facility] [id number] 2019-09-09 2019-09-09 [id number] 11:00:00 11:00:00 German 03 Rolan 2019-09-08 2019-09-08 Outpatient Carolina, MHMISCHER MHMISCHER [id number] 15:30:00 15:30:00 German 04 Rolan 2019-08-12 2019-08-12 Outpatient Carolina, MHMISCHER MHMISCHER [id number] 15:30:00 15:30:00 German 02 Rolan 2019-07-29 2019-07-29 Orders Doctor CATARINO [id number] 00:00:00 00:00:00 Only Unassigned, JANNIE [id number] [facility] [id number] 2019-07-27 2019-07-27 Outpatient Carolina, MHMISCHER MHMISCHER [id number] 14:00:00 23:59:59 German Rolan 2016-07-15 2016-07-16 Outpatient Juliet, [facility] [id number] 22:24:00 01:27:00 Verona Ahmed 00 2016-07-11 2016-07-14 Outpatient Esquenazi [facility] [id number] 20:34:00 11:57:00 YostJenaro barger 2004-07-18 2004-07-18 Orders Doctor CATARINO [id number] 00:00:00 00:00:00 Only Unassigned, JANNIE [id number] [facility] [id number] Results Test Description Test Time Test Comments Results Result [facility] e Comments BODY FLUIDS 2016-07-13 34 Memorial 13:35:00 [place] BODY FLUIDS 2016-07-13 Colorless Memorial 13:35:00 (07/13/16 7:35 [place] AM) BODY FLUIDS 2016-07-13 Clear (07/13/16 Memorial 13:35:00 7:35 AM) [place] BODY FLUIDS 2016-07-13 xxxxxxx Memorial 13:35:00 (07/13/16 7:35 [place] AM) BODY FLUIDS 2016-07-13 0 Memorial 13:35:00 [place] BODY FLUIDS 2016-07-13 Colorless [facility] 13:35:00 (07/13/16 7:35 [place] AM) BODY FLUIDS 2016-07-13 1 Memorial 13:35:00 [place] BODY FLUIDS 2016-07-13 56 Memorial 13:35:00 [place] IMMUNOLOGY 2016-07-13 1010 Memorial 13:35:00 [place] IMMUNOLOGY 2016-07-13 4100.0 Memorial 13:35:00 [place] IMMUNOLOGY 2016-07-13 1.7 Memorial 13:35:00 [place] IMMUNOLOGY 2016-07-13 14.7 Memorial 13:35:00 [place] IMMUNOLOGY 2016-07-13 0.5 Memorial 13:35:00 [place] CHEM PANEL 2016-07-13 128 Memorial 07:33:00 [place] CHEM PANEL 2016-07-13 8.8 Memorial 07:33:00 [place] CHEM PANEL 2016-07-13 23 Memorial 07:33:00 [place] CHEM PANEL 2016-07-13 108 Memorial 07:33:00 [place] CHEM PANEL 2016-07-13 0.61 Memorial 07:33:00 [place] CHEM PANEL 2016-07-13 142 Memorial 07:33:00 [place] CHEM PANEL 2016-07-13 7 Memorial 07:33:00 [place] CHEM PANEL 2016-07-13 3.9 Memorial 07:33:00 [place] CHEM PANEL 2016-07-13 88 Memorial 07:33:00 [place] CHEM PANEL 2016-07-13 14.9 Memorial 07:33:00 [place] HEMATOLOGY 2016-07-13 37.9 Memorial 07:33:00 [place] HEMATOLOGY 2016-07-13 52.1 Memorial 07:33:00 [place] HEMATOLOGY 2016-07-13 7.3 Memorial 07:33:00 [place] HEMATOLOGY 2016-07-13 0.8 Memorial 07:33:00 [place] HEMATOLOGY 2016-07-13 1.9 Memorial 07:33:00 [place] HEMATOLOGY 2016-07-13 3.8 Memorial 07:33:00 [place] HEMATOLOGY 2016-07-13 0.1 Memorial 07:33:00 [place] HEMATOLOGY 2016-07-13 0.5 Memorial 07:33:00 [place] HEMATOLOGY 2016-07-13 2.7 Memorial 07:33:00 [place] HEMATOLOGY 2016-07-13 0.1 Memorial 07:33:00 [place] HEMATOLOGY 2016-07-13 4.53 Memorial 07:33:00 [place] HEMATOLOGY 2016-07-13 7.2 Memorial 07:33:00 [place] HEMATOLOGY 2016-07-13 38.5 Memorial 07:33:00 [place] HEMATOLOGY 2016-07-13 13.0 Memorial 07:33:00 [place] HEMATOLOGY 2016-07-13 33.9 Memorial 07:33:00 [place] HEMATOLOGY 2016-07-13 07:33:00 Test Item Value Reference Range Interpretation Comme nts MCH (test code = MCH) 28.8 pg 27.0-31.0 Memorial [id number] 07:33:0014.0[facility] HermannHEMATOLOGY 2016-07-13 07:33:009.2[facility] WootbzrFCDOOBBPTO8181-07-85 07:33:06512Pxnavnxy AmpfpztCXVKQBYYAF4379-95-11 07:33:0084.9[facility] NzxhctgNMPDTWNFUD8298-91-37 07:33:000.96[facility] XhydkptECTXNDQELW1272-23-56 07:33:00 Test Item Value Reference Range Interpretation Comments PTT (test code = PTT) 31.9 s 22.9-35.8 Memorial HjnhkopMKHEXNBPDR7313-31-49 07:33:00 Test Item Value Reference Range Interpretation Comments PT (test code = PT) 13.0 s 12.0-14.7 [facility] HermannCARDIAC [id number] 22:45:00<0.010[facility] [place] CARDIAC [id number] 22:45:0033[facility] KerdtvhFUESRFTZF2626-19-71 22:45:00 35[facility] HermannDRUG [id number] 06:39:00Negative *NA*(07/12/16 12:39 AM) [facility]annDRUG [id number] 06:39:00Negative *NA*(07/12/16 12:39 AM) [facility]annDR[facility] [id number] 06:39:00Negative *NA*(07/12/16 12:39 AM) [facility]ann[facility] [id number] 06:39:00Negative *NA*(07/12/16 12:39 AM) [facility]ann[facility] [id number] 06:39:00See Note *NA*(07/12/16 12:39 AM) [facility] [id number] 06:39:00Negative *NA*(07/12/16 12:39 AM) [facility] [id number] 06:39:00Negative *NA*(07/12/16 12:39 AM) [facility]annDR[facility] [id number] 06:39:00Negative *NA*(07/12/16 12:39 AM) [facility]ann[facility] NZVQGM2444-99-07 06:39:00Negative *NA*(07/12/16 12:39 AM) [facility]annDR[facility] IYMAYG9118-06-07 06:39:00Negative *NA*(07/12/16 12:39 AM) [facility] UcyjrjqULPDOXDCEP9370-29-17 06:39:46364Kgoafzpv HermannHEMATOLOGY 2016-07-12 06:39:0013.5[facility] RuokyvfRJTEGSJCEE5011-94-60 06:39:009.3[facility] NyhcfmiSFZIRIIMFD5071-35-76 06:39:004.46[facility] MuoxpqkMXOIARBDOI8647-21-35 06:39:0012.6[facility] OugebhdCAVPNFWCRN5611-01-24 06:39:0037.4[facility] [place] DNXJFKWTVM5688-83-06 06:39:0083.9[facility] HuvomxqYHLRWVUCCU3605-00-46 06:39:00 9.4[facility] BfedaynYTTHOZRTTH6618-35-57 06:39:00 Test Item Value Reference Range Interpretation Comments MCH (test code = MCH) 28.3 pg 27.0-31.0 [facility] ZgudlkeVCBRENJXEX6513-44-10 06:39:0033.8[facility] HermannHEMATOLOGY 2016-07-12 06:39:00 Test Item Value Reference Range Interpretation Comments PTT (test code = PTT) 33.7 s 22.9-35.8 [facility] TcnsudwGGMJPBBGNN6378-39-19 06:39:001.02[facility] HermannHEMATOLOGY 2016-07-12 06:39:00 Test Item Value Reference Range Interpretation Comments PT (test code = PT) 13.6 s 12.0-14.7 [facility] HrzswybTUELFHNAYE0193-58-33 06:39:005.5[facility] HermannHEMATOLOGY 2016-07-12 06:39:000.6[facility] JtcgbeiGBDNTLFBRA1168-78-17 06:39:003.0[facility] CjlwglnSXXQUFJGZX3361-28-08 06:39:000.1[facility] DrgmitsFJPNDAINGR1558-93-29 06:39:000.1[facility] YjfjmfkNUSKPUDGJA4142-02-62 06:39:000.9[facility] [place] ETPKBPBOLF3170-91-36 06:39:0058.7[facility] BewudhxCZXPYSRURV5522-99-21 06:39:00 32.5[facility] DaivnmsXXODSHCLRB2951-41-88 06:39:006.5[facility] HermannHEMATOLOGY 2016-07-12 06:39:001.4[facility] HermannURINE AND GVOLN9454-95-15 06:39:001 [facility]annURINE AND CQMES2246-23-39 06:39:00Not Indicated *NA*(07/12/16 12:39 AM)[facility] HermannURINE AND ASVSQ5693-01-25 06:39:00Clear (07/12/16 12:39 AM)[facility]annUR[facility] AND WYAIS5649-49-72 06:39:001.011[facility]annURINE AND TJSGI8529-47-08 06:39:006.5[facility] HermannURINE AND [id number] 06:39:00Yellow *NA*(07/12/16 12:39 AM)[facility]annUR[facility] AND [id number] 06:39:00Negative (07/12/16 12:39 AM)[facility]annUR[facility] AND [id number] 06:39:00Negative *NA*(07/12/16 12:39 AM)[facility]annURINE AND STOOL 2016-07-12 06:39:00Negative (07/12/16 12:39 AM)[facility] HermannURINE AND STOOL 2016-07-12 06:39:00Negative (07/12/16 12:39 AM)[facility]annURINE CHEM 2016-07-12 06:39:00Negative (07/12/16 12:39 AM)[facility] HermannBLOOD BANK [id number] 05:50:00Negative (07/11/16 11:50 PM)[facility] HermannCHEM PANEL 2016-07-12 03:20:0093[facility] HermannCHEM [id number] 03:20:0015.5[facility] HermannCHEM MPIJI8368-55-35 03:20:58892Dyuhsxdc HermannCHEM WNYTS2300-54-59 03:20:21606Oyjlfxhb HermannCHEM GLEUF9049-28-55 03:20:000.75[facility] HermannCHEM FZYOR6724-03-32 03:20:006[facility] HermannCHEM WKHGD9596-33-19 03:20:008.8 [facility] HermannCHEM [id number] 03:20:0026[facility] HermannCHEM PANEL 2016-07-12 03:20:003.5[facility] HermannCHEM NEZAY3350-09-75 03:20:50714Ecwevkhy [place]
--- NOTE | 2020-08-28 10:34 | ER ---
Nurse's Notes [facility] Name: Shanna Estrella Age: 25 yrs Sex: Female : 1995 Arrival Date: 08/28/2020 Time: 10:15 Bed Waiting Private MD: Diagnosis: Periapical abscess without sinus Presentation: 08/28 10:28 Chief complaint: Patient states: Dental pain that began a few days ago. Coronavirus ss screen: Client denies travel out of the [place] in the last 14 days. Ebola Screen: Patient denies exposure to infectious person. Patient denies travel to an Ebola-affected area in the 21 days before illness onset. Initial Sepsis Screen: Does the patient meet any 2 criteria? No. Patient's initial sepsis screen is negative. Does the patient have a suspected source of infection? No. Patient's initial sepsis screen is negative. Risk Assessment: Do you want to hurt yourself or someone else? Patient reports no desire to harm self or others. Onset of symptoms was August 24, 2020. 10:28 Method Of Arrival: Ambulatory ss 10:28 Acuity: ELI 5 ss Historical: - Allergies: 10:32 Amoxicillin; ss 10:32 Lamictal; ss 10:32 lamotrigine; ss 10:32 PENICILLINS; ss 10:32 Tape; ss - PMHx: 10:32 Anxiety; Bronchitis; chiari malformation; Depression; epilepsy; hydrocephaly; memory ss loss; Pneumonia; PTSD; Seizures; - PSHx: 10:32 EDI ANALYST shunt; "decompression" surgery; EDI ANALYST shunt revision; ss - Immunization history:: Adult Immunizations unknown. - Social history:: Smoking status: Patient denies any tobacco usage or history of. Screenin:32 Abuse screen: Denies threats or abuse. Denies injuries from another. Nutritional ss screening: No deficits noted. Tuberculosis screening: Never had TB. Fall Risk None identified. Assessment: 10:32 General: Appears uncomfortable, Behavior is calm, cooperative. Pain: Complains of pain ss in upper left first molar, upper left second molar and lower left second molar. Neuro: Level of Consciousness is awake, alert, obeys commands, Oriented to person, place, time, situation. Respiratory: Airway is patent Respiratory effort is even, unlabored, Respiratory pattern is regular, symmetrical. GI: No signs and/or symptoms were reported involving the gastrointestinal system. EENT: Oral mucosa is moist. Derm: Skin is intact, is healthy with good turgor, Skin is dry, Skin is pink, warm \\T\\ dry. normal. Vital Signs: 10:28 BP 132 / 99; Pulse 106; Resp 17; Temp 98.8(TE); Pulse Ox 100% ; Weight 72.57 kg; Height ss 5 ft. 0 in. (152.40 cm); Pain 10; 10:28 Body Mass Index 31.25 (72.57 kg, 152.40 cm) ss ED Course: 10:15 Patient arrived in ED. as 10:31 Triage completed. ss 10:32 Tiffanie Benoit FNP-C is [facility]. kb 10:32 Francisco Becerra MD is Attending Physician. kb 10:32 Arm band placed on right wrist. ss 10:32 Patient has correct armband on for positive identification. Bed in low position. Call ss light in reach. 10:32 No provider procedures requiring assistance completed. Patient did not have IV access ss during this emergency room visit. Administered Medications: 10:41 Drug: Temple (7.5 mg-325 mg) 1 tabs Route: PO; ss 10:42 Follow up: Response: No adverse reaction; Medication administered at discharge. ss 10:42 Drug: Clindamycin 300 mg Route: PO; ss 10:42 Follow up: Response: Medication administered at discharge. ss Outcome: 10:34 Discharge ordered by . kb 10:42 Discharged to home ambulatory. ss 10:42 Condition: good 10:42 Discharge instructions given to patient, Instructed on discharge instructions, follow up and referral plans. medication usage, Demonstrated understanding of instructions, follow-up care, medications, Prescriptions given X 2. 10:43 Patient left the ED. ss Signatures: Tiffanie Benoit FNP-C FNP-Charlotte Solomon Shelby, RN RN ss
--- NOTE | 2020-08-28 10:34 | EDPHYS ---
Physician Documentation [facility] Name: Shanna Estrella Age: 25 yrs Sex: Female : 1995 Arrival Date: 08/28/2020 Time: 10:15 Bed Waiting Private MD: Francisco Mancini HPI: 08/28 10:36 This 25 yrs old Female presents to ER via Ambulatory with complaints of kb Toothache, Jaw Pain. 10:36 The patient presents with pain, redness, swelling. The problem is located in the lower kb right third molar (#32) and lower left third molar (#17) and upper left third molar (#16). The patient has not experienced similar symptoms in the past. The patient has not recently seen a physician. 10:37 Onset: The symptoms/episode began/occurred 3 day(s) ago. Duration: The symptoms are kb continuous. Modifying factors: The symptoms are alleviated by nothing, the symptoms are aggravated by nothing. Associated signs and symptoms: Pertinent positives: pain, redness in area, swelling. Severity of symptoms: At their worst the symptoms were moderate, in the emergency department the symptoms are unchanged. 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 - Social history:: Smoking status: Patient denies any tobacco usage or history of. ROS: 10:35 Constitutional: Negative for fever, chills, and weight loss, Cardiovascular: Negative kb for chest pain, palpitations, and edema, Respiratory: Negative for shortness of breath, cough, wheezing, and pleuritic chest pain, Abdomen/GI: Negative for abdominal pain, nausea, vomiting, diarrhea, and constipation, MS/Extremity: Negative for injury and deformity, Skin: Negative for injury, rash, and discoloration, Neuro: Negative for headache, weakness, numbness, tingling, and seizure. 10:35 ENT: Positive for dental pain. Exam: 10:35 Constitutional: This is a well developed, well nourished patient who is awake, alert, kb and in no acute distress. Head/Face: Normocephalic, atraumatic. Chest/axilla: Normal chest wall appearance and motion. Nontender with no deformity. No lesions are appreciated. Cardiovascular: Regular rate and rhythm with a normal S1 and S2. No gallops, murmurs, or rubs. Normal PMI, no JVD. No pulse deficits. Respiratory: Lungs have equal breath sounds bilaterally, clear to auscultation and percussion. No rales, rhonchi or wheezes noted. No increased work of breathing, no retractions or nasal flaring. Abdomen/GI: Soft, non-tender, with normal bowel sounds. No distension or tympany. No guarding or rebound. No evidence of tenderness throughout. Skin: Warm, dry with normal turgor. Normal color with no rashes, no lesions, and no evidence of cellulitis. MS/ Extremity: Pulses equal, no cyanosis. Neurovascular intact. Full, normal range of motion. Neuro: Awake and alert, GCS 15, oriented to person, place, time, and situation. Cranial nerves II-XII grossly intact. Motor strength 5/5 in all extremities. Sensory grossly intact. Cerebellar exam normal. Normal gait. 10:35 ENT: Dental exam: abscess, dental caries, that is moderate, diffusely, gum swelling, that is mild, specifically in the upper left third molar (#16), lower left third molar (#17) and lower right third molar (#32), pain, that is moderate, specifically in the upper left third molar (#16), lower left third molar (#17) and lower right third molar (#32). Vital Signs: 10:28 BP 132 / 99; Pulse 106; Resp 17; Temp 98.8(TE); Pulse Ox 100% ; Weight 72.57 kg; Height ss 5 ft. 0 in. (152.40 cm); Pain 10/10; 10:28 Body Mass Index 31.25 (72.57 kg, 152.40 cm) ss MDM: 10:33 Patient medically screened. kb 10:35 Data reviewed: vital signs, nurses notes. Data interpreted: Pulse oximetry: on room air kb is 100 %. Interpretation: normal. Counseling: I had a detailed discussion with the patient and/or guardian regarding: the historical points, exam findings, and any diagnostic results supporting the discharge/admit diagnosis, the need for outpatient follow up, a dentist, to return to the emergency department if symptoms worsen or persist or if there are any questions or concerns that arise at home. Administered Medications: 10:41 Drug: Dunnegan (7.5 mg-325 mg) 1 tabs Route: PO; ss 10:42 Follow up: Response: No adverse reaction; Medication administered at discharge. ss 10:42 Drug: Clindamycin 300 mg Route: PO; ss 10:42 Follow up: Response: Medication administered at discharge. ss Disposition: 18:38 Co-signature as Attending Physician, Francisco Becerra MD I agree with the assessment and rico plan of care. Disposition: 08/28/20 10:34 Discharged to Home. Impression: Periapical abscess without sinus. - Condition is Stable. - Discharge Instructions: Dental Pain, [id number], Dental Abscess, [id number]. - Prescriptions for Clindamycin HCl 300 mg Oral Capsule - take 1 capsule by ORAL route every 6 hours for 10 days; 40 capsule. Diclofenac Sodium 75 mg Oral Tablet, Delayed Release (E.C.) - take 1 tablet by ORAL route 2 times per day As needed; 30 tablet. - Medication Reconciliation Form, Thank You Letter, Antibiotic Education, Prescription Opioid Use form. - Follow up: Emergency Department; When: As needed; Reason: Worsening of condition. Follow up: Private Physician; When: 2 - 3 days; Reason: Recheck today's complaints, Continuance of care, Re-evaluation by your physician. Signatures: Tiffanie Benoit, ÁNGEL HARE-Francisco Olmos MD MD cha Smirch, Shelby, RN RN ss Corrections: (The following items were deleted from the chart) 10:43 10:34 08/28/2020 10:34 Discharged to Home. Impression: Periapical abscess without ss sinus. Condition is Stable. Forms are Medication Reconciliation Form, Thank You Letter, Antibiotic Education, Prescription Opioid Use. Follow up: Emergency Department; When: As needed; Reason: Worsening of condition. Follow up: Private Physician; When: 2 - 3 days; Reason: Recheck today's complaints, Continuance of care, Re-evaluation by your physician. kb
[2020-08-28 10:48] VITALS: BP 132/99; TEMP 98.8; O2SAT 100
[2020-08-28] MEDS ORDERED: HYDROCODONE/APAP 7.5/325 MG TAB ONE (10:55)
== END 2020-08-28 10:43 | disposition home or self-care (01) ==
LOC: ER 10:12
DX: K04.7 Periapical abscess without sinus (principal); Z98.2 Presence of cerebrospinal fluid drainage device; Z88.0 Allergy status to penicillin; Z88.1 Allergy status to other antibiotic agents; Z91.048 Other nonmedicinal substance allergy status
CPT/HCPCS: 99283

== ENCOUNTER 2020-10-04 22:12 | Emergency (ER) | payer SELFPAY ==
[2020-10-05 02:32] LABS: Basophils % 0.9 % (0-1.3); Hematocrit 47.4 % (36.0-45.0); Lymphocytes % 30.1 % (15.3-44.8); MPV 9.1 fL (7.6-11.3); RBC Red Blood Cell Count 5.41 M/uL (3.86-4.86)
[2020-10-05 02:34] LABS: Protime INR 0.95
[2020-10-05 02:51] LABS: ALT/SGPT 38 U/L (12-78); AST/SGOT 22 U/L (15-37); Albumin 4.4 g/dL (3.4-5.0); Alkaline Phosphatase 95 U/L (45-117); BUN Blood Urea Nitrogen 7 mg/dL (7-18); Bicarbonate 23 mmol/L (21-32); Bilirubin Direct 0.1 mg/dL (0-0.2); Bilirubin Total 0.4 mg/dL (0.2-1.0); Glucose Level 98 mg/dL (74-106); Magnesium 2.4 mg/dL (1.8-2.4); NT PRO-BNP 20 pg/mL (<125); Potassium 3.4 mmol/L (3.5-5.1); Protein, Total 8.8 g/dL (6.4-8.2); Sodium Level 142 mmol/L (136-145); Troponin (Emerg Dept Use Only) < 0.02 ng/mL (0.0-0.045)
[2020-10-05 03:17] LABS: Urine Blood TRACE (NEG); Urine Glucose NEGATIVE (NEG); Urine Protein NEGATIVE (NEG); Urine Specific Gravity >1.030 (1.005-1.030); Urine pH 5.5 (5.0-7.0)
[2020-10-05] MEDS ORDERED: KETOROLAC 30 MG/ML INJ ONE (03:29)
--- NOTE | 2020-10-05 03:36 | EDPHYS ---
Physician Documentation [facility] Name: Shanna Estrella Age: 25 yrs Sex: Female : 1995 Arrival Date: 10/04/2020 Time: 22:12 Bed 20 Private MD: ED Physician Fritz Reid HPI: 10/05 03:26 This 25 yrs old Female presents to ER via Ambulatory with complaints of Chest tw4 Pain, Back Pain. 03:26 The patient or guardian reports chest pain that is located primarily in the anterior tw4 chest wall, left. The pain radiates to Associated signs and symptoms: The patient has no apparent associated signs or symptoms. The chest pain is described as sharp. Duration: The patient or guardian reports a single episode, that is now resolved. Modifying factors: The symptoms are alleviated by nothing. the symptoms are aggravated by nothing. The patient has not experienced similar symptoms in the past. 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 - Social history:: Smoking status: Patient denies any tobacco usage or history of. ROS: 10/05 03:26 Constitutional: Negative for fever, chills, and weight loss, Eyes: Negative for injury, tw4 pain, redness, and discharge, Respiratory: Negative for shortness of breath, cough, wheezing, and pleuritic chest pain, Abdomen/GI: Negative for abdominal pain, nausea, vomiting, diarrhea, and constipation, Back: Negative for injury and pain, MS/Extremity: Negative for injury and deformity, Skin: Negative for injury, rash, and discoloration, Neuro: Negative for headache, weakness, numbness, tingling, and seizure. Cardiovascular: Positive for chest pain, Negative for edema, orthopnea, palpitations, paroxysmal nocturnal dyspnea. Exam: 03:26 Constitutional: This is a well developed, well nourished patient who is awake, alert, tw4 and in no acute distress. Head/Face: Normocephalic, atraumatic. Chest/axilla: Normal chest wall appearance and motion. Nontender with no deformity. No lesions are appreciated. Cardiovascular: Regular rate and rhythm with a normal S1 and S2. No gallops, murmurs, or rubs. Normal PMI, no JVD. No pulse deficits. Respiratory: Lungs have equal breath sounds bilaterally, clear to auscultation and percussion. No rales, rhonchi or wheezes noted. No increased work of breathing, no retractions or nasal flaring. Abdomen/GI: Soft, non-tender, with normal bowel sounds. No distension or tympany. No guarding or rebound. No evidence of tenderness throughout. Back: No spinal tenderness. No costovertebral tenderness. Full range of motion. Skin: Warm, dry with normal turgor. Normal color with no rashes, no lesions, and no evidence of cellulitis. MS/ Extremity: Pulses equal, no cyanosis. Neurovascular intact. Full, normal range of motion. Neuro: Awake and alert, GCS 15, oriented to person, place, time, and situation. Cranial nerves II-XII grossly intact. Motor strength 5/5 in all extremities. Sensory grossly intact. Cerebellar exam normal. Normal gait. Vital Signs: 10/04 22:22 BP 144 / 102; Pulse 106; Resp 17; Temp 98.4; Pulse Ox 96% ; Weight 72.57 kg; Pain 8/10; ll1 10/05 02:00 Pulse 110; Resp 16; Pulse Ox 99% ; sf 02:30 Pulse 116; Resp 16; Pulse Ox 100% ; sf 04:07 BP 115 / 80; Pulse 92; Resp 18 S; Temp 98.3(TE); Pulse Ox 97% on R/A; Pain 0/10; bb 02:30 Unable to obtain BP, patient has removed BP cuff MDM: 01:46 Patient medically screened. tw4 07:04 HEART Score: History: Slightly Suspicious (0), ECG: Normal (0), Age: < or = 45 years tw4 (0), Risk Factors: No Risk Factors Known (0), Troponin: < or = 1 x Normal Limit (0), Total Score = 0. Data reviewed: vital signs, nurses notes. Data interpreted: nuclear monitoring technician: rhythm is normal sinus rhythm, Pulse oximetry: Interpretation: normal. Counseling: I had a detailed discussion with the patient and/or guardian regarding: the historical points, exam findings, and any diagnostic results supporting the discharge/admit diagnosis, lab results, radiology results. Special discussion: Based on the patient's history, exam, and Dx evaluation, there is no indication for emergent intervention or inpatient Tx. It is understood by the patient/guardian that if the Sx's persist or worsen they need to return immediately for re-evaluation. I discussed with the patient/guardian in detail that at this point there is no indication for admission to the hospital. It is understood, however, that if the symptoms persist or worsen the patient needs to return immediately for re-evaluation. 10/05 01:16 Order name: Basic Metabolic Panel; Complete Time: 03:12 10/05 03:19 Interpretation: Normal except: K 3.4. 10/05 01:16 Order name: CBC with Diff; Complete Time: 03:12 10/05 03:20 Interpretation: Normal except: RBC 5.41; HGB 15.8; HCT 47.4. 10/05 01:16 Order name: LFT's; Complete Time: 03:12 10/05 03:20 Interpretation: Normal except: TP 8.8; GLOB 4.4; A/G 1.0. 10/05 01:16 Order name: Magnesium; Complete Time: 03:12 10/05 03:20 Interpretation: Normal except: MG 2.4. 10/05 01:16 Order name: NT PRO-BNP; Complete Time: 03:12 10/05 03:20 Interpretation: Within normal limits: NT PRO-BNP 20. 10/05 01:16 Order name: PT-INR; Complete Time: 03:12 10/05 01:16 Order name: Troponin (emerg Dept Use Only); Complete Time: 03:12 10/05 03:23 Interpretation: Within normal limits: TROPED < 0.02. 10/05 01:16 Order name: XRAY Chest (1 view) 10/05 01:16 Order name: EKG; Complete Time: 01:17 10/05 01:16 Order name: Cardiac monitoring; Complete Time: 02:51 10/05 01:16 Order name: EKG - Nurse/Tech; Complete Time: 02:52 10/05 03:14 Order name: Urine Dipstick--Ancillary (enter results); Complete Time: 03:24 mw2 10/05 03:24 Interpretation: Within normal limits: UBLD TRACE. 10/05 03:14 Order name: Urine --Ancillary (enter results); Complete Time: 03:24 mw2 10/05 03:24 Interpretation: Normal except: USPGR >1.030. 10/05 01:16 Order name: IV Saline Lock; Complete Time: :52 10/05 01:16 Order name: Labs collected and sent; Complete Time: :52 10/05 01:16 Order name: O2 Per Protocol; Complete Time: 02:52 10/05 01:16 Order name: O2 Sat Monitoring; Complete Time: :52 EC:31 Rate is 85 beats/min. Rhythm is regular. QRS [place] is Normal. NM interval is normal. QRS tw4 interval is normal. QT interval is normal. No Q waves. T waves are Normal. No ST changes noted. Clinical impression: Normal ECG. Interpreted by me. Reviewed by me. Administered Medications: 03:19 Drug: TORadol 30 mg Route: IVP; Site: right forearm; bb 04:06 Follow up: Response: No adverse reaction bb Disposition: 10/05/20 03:35 Discharged to Home. Impression: Low back pain, Other chest pain. - Condition is Stable. - Discharge Instructions: Back Pain, Adult, Nonspecific Chest Pain, Pain Without a Known Cause. - Medication Reconciliation Form, Thank You Letter, Antibiotic Education, Prescription Opioid Use form. - Follow up: Private Physician; When: Upon discharge from the Emergency Department; Reason: Recheck today's complaints, Continuance of care, Re-evaluation by your physician. - Problem is new. - Symptoms have improved. Signatures: Dispatcher [employer] EDScarlett Diop RN RN Fritz Cooper MD MD tw4 Markos Lim RN RN ll1 Corrections: (The following items were deleted from the chart) 04:09 03:35 10/05/2020 03:35 Discharged to Home. Impression: Low back pain; Other chest pain. bb Condition is Stable. Forms are Medication Reconciliation Form, Thank You Letter, Antibiotic Education, Prescription Opioid Use. Follow up: Private Physician; When: Upon discharge from the Emergency Department; Reason: Recheck today's complaints, Continuance of care, Re-evaluation by your physician. Problem is new. Symptoms have improved. tw4
--- NOTE | 2020-10-05 03:36 | ER ---
Nurse's Notes [facility] Name: Shanna Estrella Age: 25 yrs Sex: Female : 1995 Arrival Date: 10/04/2020 Time: 22:12 Bed 20 Private MD: Diagnosis: Low back pain;Other chest pain Presentation: 10/04 22:22 Chief complaint: Patient states: Pain to right lower back with breathing in for 2 days. ll1 Pain to L trunk started today with deep breathing. + smokers cough, but worsening cough/congestion than usual. No fever. Coronavirus screen: Client denies travel out of the [place] in the last 14 days. cough unrelated to allergies, difficulty breathing, shortness of breath, Client presents with at least one sign or symptom that may indicate coronavirus-19. Standard/surgical mask placed on the client. Ebola Screen: Patient denies travel to an Ebola-affected area in the 21 days before illness onset. Initial Sepsis Screen: Does the patient meet any 2 criteria? HR > 90 bpm. No. Patient's initial sepsis screen is negative. Does the patient have a suspected source of infection? Yes: Other: pleurisy. Risk Assessment: Do you want to hurt yourself or someone else? Patient reports no desire to harm self or others. Onset of symptoms was October 03, 2020. 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 - Social history:: Smoking status: Patient denies any tobacco usage or history of. Assessment: 10/05 02:00 General: Appears in no apparent distress. comfortable, Behavior is calm, fussy, Patient sf complaining about having to wear mask when staff in room, complaining about not being able to have a visitor, requesting to be put on oxygen because "wearing this mask makes my oxygen drop and I passed out in the lobby." Explained that she is 100% on room air and doesn't require oxygen.. Pain: Complains of pain in anterior aspect of right lateral abdomen Pain radiates to right mid back Pain currently is 5 out of 10 on a pain scale. Neuro: No deficits noted. Level of Consciousness is awake, alert, Oriented to person, place, time, situation, Appropriate for age Reports Patient reports history of seizures. States "I need my fiance back here because last time I was here I had a seizure and no one would have known about it if he hadn't told them".. Cardiovascular: Patient's skin is warm and dry. Rhythm is sinus tachycardia. Respiratory: Airway is patent Respiratory effort is even, unlabored, Respiratory pattern is regular, symmetrical. 02:18 Reassessment: After starting IV and drawing blood, asked patient name to verify correct sf label is being placed on blood, patient gave name and then closed eyes, turned head to right and started moving eyelid rapidly. No response to sternal rub, minor response to nail bed pressure, patient failed arm drop test. After about 45 seconds patient completely responsive with no postictal state to be noted. Dr. Reid notified. 02:22 Reassessment: Patient called out for nurse, upon entering room, patient requested a sf different nurse during her visit in the ED. Patient states "I heard you tell the doctor about my seizure and I need someone who is going to believe me.". 04:06 Reassessment: Patient is alert, oriented x 3, equal unlabored respirations, skin bb warm/dry/pink. pt states her pain is now 0/10 and she is feeling better pt verbalized understanding of and agrees to plan of care discharge instructions given pt ambulated with steady gait to exit. Vital Signs: 10/04 22:22 BP 144 / 102; Pulse 106; Resp 17; Temp 98.4; Pulse Ox 96% ; Weight 72.57 kg; Pain 8/10; ll1 10/05 02:00 Pulse 110; Resp 16; Pulse Ox 99% ; sf 02:30 Pulse 116; Resp 16; Pulse Ox 100% ; sf 04:07 BP 115 / 80; Pulse 92; Resp 18 S; Temp 98.3(TE); Pulse Ox 97% on R/A; Pain 0/10; bb 02:30 Unable to obtain BP, patient has removed BP cuff sf ED Course: 10/04 22:12 Patient arrived in ED. cl3 22:24 Triage completed. ll1 22:24 Arm band placed on. ll1 02 01:16 Fritz Reid MD is Attending Physician. tw4 01:48 Dilshad Kurtz, BANG is Primary Nurse. sf 02:00 Patient has correct armband on for positive identification. Placed in gown. Bed in low sf position. Call light in reach. Side rails up X2. bar useful or busser on. Pulse ox on. NIBP on. After putting pulse-ox on patient, patient removed pulse-ox from finger. Reapplied new pulse-ox. Door closed. Noise minimized. Visitors limited. Lights dimmed. Warm blanket given. Verbal reassurance given. 02:05 X-ray(s) taken. sf 02:10 Initial lab(s) drawn, by ms, sent to lab. Inserted saline lock: 20 gauge in right sf forearm, using aseptic technique. Blood collected. Patient reports allergy to regular tape, tape removed from IV and tagaderm placed without complaint. 02:22 XRAY Chest (1 view) In Process Unspecified. EDMS 03:05 Urine collected: clean catch specimen. bb 04:08 IV discontinued, intact, bleeding controlled, No redness/swelling at site. Pressure bb dressing applied. Administered Medications: 03:19 Drug: TORadol 30 mg Route: IVP; Site: right forearm; bb 04:06 Follow up: Response: No adverse reaction bb Outcome: 03:35 Discharge ordered by . tw4 04:08 Discharged to home ambulatory. bb 04:08 Condition: stable 04:08 Discharge instructions given to patient, Instructed on discharge instructions, follow up and referral plans. Demonstrated understanding of instructions, follow-up care. 04:09 Patient left the ED. bb Signatures: Dispatcher [employer] EDMS Scarlett Henriquez RN RN Fritz Cooper MD MD tw4 Mauricio Lim cl3 Markos Lim RN RN ll1 Dilshad Kurtz, BANG RN sf Corrections: (The following items were deleted from the chart) 02:59 02:10 Inserted saline lock: 20 gauge in right forearm, using aseptic technique. Blood sf collected. sf
[2020-10-05 04:20] VITALS: BP 115/80; TEMP 98.3; O2SAT 97
--- NOTE | 2020-10-05 09:34 | RAD REPORT ---
EXAM DESCRIPTION: RAD - Chest Single View - 10/05/2020 2:22 am CLINICAL HISTORY: CHEST PAIN Chest pain. COMPARISON: Chest Single View dated 08/26/2019; Chest Single View dated 04/29/2019; Chest Pa And Lat ( 2 Views) dated 09/06/2018; Chest Single View dated 05/09/2017 FINDINGS: Portable technique limits examination quality. The lungs are grossly clear. The heart is normal in size. No displaced fractures.Calcified shunt tubi ng is seen along the right chest. IMPRESSION: No acute intrathoracic process suspected.
== END 2020-10-05 04:09 | disposition home or self-care (01) ==
LOC: ER 22:12
DX: R07.89 Other chest pain (principal); M54.5 Low back pain; Z88.0 Allergy status to penicillin; Z88.3 Allergy status to other anti-infective agents; Z88.8 Allergy status to other drugs, medicaments and biological substances
CPT/HCPCS: 36415; 71045; 80048; 80076; 81003; 81025; 83735; 83880; 84484; 85025; 85610; 96374; 99284

== ENCOUNTER 2020-11-20 21:00 | Emergency (ER) | payer SELFPAY ==
--- OUTSIDE RECORDS SUMMARY | 2020-11-20 21:04 | XMS REPORT | Continuity of Care Document ---
:1995 Author Organization [facility] t Address [address] [place] [address] Care Team Providers Name Role Phone Doctor Unassigned, Name Attending Clinician Unavailable Rolan Figueroa Attending Clinician Renata Chung Attending Clinician Brianne Yost Attending Clinician Brianne Yost Admitting Clinician Problems Condition Condition Condition Status Onset Resolution Last Treating Co mments Source Name Details Category Date Date Treatment Clinician Date OTHER Diagnosis Active 2015-082016-07-15 [facility] oria 09-14 22:55:00 l OTHER 00:00: [place] 00 Active 07/15/2016 [facility] POSSIBLE Diagnosis Active 2015-082016-07-11 M emoria MALFUNCTIO 09-10 22:33:00 l N SVP SHUNT POSSIBLE 00:00: Juan edge MALFUNCTIO 00 N SVP SHUNT Active 07/11/2016 [facility] HEADACHE Diagnosis Active 2015-082016-07-14 M emoria 09-10 08:24:00 l HEADACHE 00:00: Ernie n 00 Active 07/11/2016 [facility] 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) Resolved Problem 09/11/2019 [facility] Depressive Problem Resolve 2019-09-11 Memoria disorder d 22:27:01 l (disorder) Ernie n Depressive disorder (disorder) Resolved Problem 09/11/2019 [facility] Posttrauma Problem Resolve 2019-09-11 Memoria tic stress d 22:27:01 l disorder Roslyn (disorder) Posttrauma tic stress disorder (disorder) Resolved Problem 09/11/2019 [facility] Chiari Problem Active 2019-09-11 Memor ia malformati 22:27:01 l on Chiari Roslyn (disorder) malformati on (disorder) Active Problem 09/11/2019 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) Active Problem 09/11/2019 [facility] Hydrocepha Problem Active 2019-09-11 M emoria willam 22:27:01 l (disorder) Ernie n Hydrocepha willam (disorder) Active Problem 09/11/2019 [facility] Simple Problem Active 2019-09-11 Memor ia obesity 22:27:01 l (disorder) Simple Herm abran obesity (disorder) Active Problem 09/11/2019 [facility] History of Past Illness Condition Condition Condition Status Onset Resolution Last Treating Co mments Source Name Details Category Date Date Treatment Clinician Date Discharge Problem 2015-082016-07-19 2016-07-19 Memoria Diagnosis: 09-15 04:14:28 04:14:28 l Acute 06:00: Roslyn cervical Discharge 00 sprain Diagnosis: Acute cervical sprain 07/16/2016 07/19/2016 [facility] Allergies, Adverse Reactions, Alerts Allergy Allergy Status Severity Reaction(s) Onset Inactive Treating Comm ents Source Name Type Date Date Clinician penicill penicill Active Memori a ins ins l [place] amoxicil amoxicil Active Memori a clovis clovis l [facility] Active Memoria Tape Tape l [place] LaMICtal LaMICtal Active Memori a l [place] Social History Smoking Status Start Date Stop Date Source Social History 2019-07-27 20:14:00 [facility] Medications Ordered Filled Start Stop Current Ordering Indication Dosage Frequency Signature Comments Components Source Medication Medication Date Date Medication? Clinician (SIG) Name Name oxcarbazepi 2018-08 Yes 150 mg = 1 Memoria ne 150 MG 2-11 tab, PO, l Oral Tablet 21:10: BID, # 60 H ermann [Trileptal] 00 tab, 3 Refill(s), Pharmacy: [place] [id number] Ketorolac 2015-08 No 60 mg, Memori a 09-15 Route: IM, l 05:21: Drug form: [place] 00 INJ, ONCE, Dosing Weight 84.545, kg, Priority: STAT, Start date: 07/15/16 23:21:00 [employer], Stop date: 07/15/16 23:21:00 [employer] Valium 2015-08 No 5 mg, Memoria 09-15 Route: IM, l 05:21: Drug form: [place] 00 INJ, ONCE, Dosing Weight 84.545, kg, Priority: STAT, Start date: 07/15/16 23:21:00 [employer] DESIGN[employer], Stop date: 07/15/16 23:21:00 [employer] Ativan 2015-08 No Notes: Memoria 09-13 (Same as: l 05:15: Ativan) [place] 00 nystatin 2015-08 No Notes: Memoria topical 09-12 (Same l 100,000 23:00: as:Mycosta Herm abran units/g 00 tin, cream Nilstat) For external use only. Nystatin 2015-08 No 1 appl, Memori a [id number] 09-12 Route: l UNT/ML / 15:00: TOP, TID, Herm abran Triamcinolo 00 Drug form: ne CRM, Start Acetonide 1 date: MG/ML 07/13/16 Topical 9:00:00 Cream [employer] DESIGNER, Duration: 30 day, Stop date: 08/11/16 17:00:00 [employer] Sodium 2015-08 No 250 mL, Memoria Chloride 09-11 250 ml/hr, l 0.154 22:18: Infuse [place] MEQ/ML 00 Over: 1 Injectable hr, Route: Solution IV, 250, Drug form: INJ, ONCE, Priority: STAT, Dosing Weight 84.545 kg, Start date: 07/12/16 16:18:00 [employer] DESIGNER, Duration: 1 doses or times, Stop date: 07/12/16 16:18:00 [employer] Promethazin 2015-08 No Notes: Do M kat e 09-11 not give l 22:17: IV push. Roslyn 00 (Same as: Phenergan) Docusate 2015-08 No Notes: Memoria 09-11 (Same as: l 15:00: Colace) [place] (Do Not Crush) sennosides, 2015-08 No Notes: Sami stefani CARE HOME 09-11 (Same as: l 15:00: Senokot) [place] Saline 2015-08 No Notes: Memoria Flush 0.9% 09-11 (Same as: l 15:00: BD [place] Posiflush) tramadol 2015-08 Yes 50 mg = [...] mg = 1 Me moria mg oral - tab, PO, l tablet 13:12: Q12H, X 14 Danika nn 00 day, # 28 tab, 0 Refill(s) Docusate 2015-08 Yes 100 mg = 1 Mem oria Sodium 100 - cap, PO, l MG Oral 13:12: Q12H, [...] 1-26 mL, Route: l 04:18: IVP, Drug Roslyn Form: INJ, Dosing Weight 84.545, kg, PRN, PRN Abnormal Lab Result, Start date: 07/11/16 22:18:00 [employer] DESIGNER, Duration: 30 day, Stop date: 08/10/16 22:17:00 [employer] DES[employer] Bisacodyl 2015-08 No Notes: Memori a 09-11 (Same As: l 04:18: Dulcolax, [place] 00 Bisco-Lax) Saline 2015-08 No Notes: Memoria Flush 0.9% 09-11 (Same as: l 04:18: BD [place] 00 Posiflush) Ondansetron 2015-08 No Notes: Sami stefani 09-11 (Same as: l 04:18: Zofran) [place]lyn 00 MEDICATION WASTE Product Size: 4 mg Product Wasted: _0__ mg Acetaminoph 2015-08 No Notes: Do M emoria en 325 MG / 09-11 not exceed l Hydrocodone 04:18: 4gm/day of [place]lyn Bitartrate 00 acetaminop 10 MG Oral hen. Tablet (Same as: [place] 325/10) Acetaminoph 2015-08 No Notes: Sami stefani en 325 MG / 09-11 (Same as: l Hydrocodone 04:18: [place] Danika nn Bitartrate 00 325/5) Do 5 MG Oral not exceed Tablet 4gm/day of acetaminop hen. Sodium 2015-08 No 1,000 mL, Memori a Chloride 09-11 Rate: 75 l 0.154 04:18: ml/hr, [place] MEQ/ML 00 Infuse Injectable over: 13.3 Solution hr, Route: IV, Dosing Weight 84.545 kg, Total Volume: 1,000, Start date: 07/11/16 22:18:00 [employer] DESIGNER, Duration: 30 day, Stop date: 08/10/16 22:17:00 [employer] DESIGNER Reglan 2015-08 No Notes: Memoria 09-11 (Same as: l 02:59: Reglan) [place] 00 Sodium 2015-08 No 1,000 mL, Memori a Chloride 09-11 1,000 l 0.154 02:59: ml/hr, Roslyn MEQ/ML 00 Infuse Injectable Over: 1 Solution hr, Route: IV, 1,000, Drug form: INJ, ONCE, Priority: STAT, Dosing Weight 84.545 kg, Start date: 07/11/16 20:59:00 STR[employer] DESIGNER, Duration: 1 doses or times, Stop date: 07/11/16 20:59:00 [employer] DESIGNER Acetaminoph 2015-08 No Notes: Max Memoria en 09-11 acetaminop l 02:59: hen 4000 Roslyn 00 mg/day (4 gm/day). (Same as: Tylenol Extra Strength) Vital Signs Vital Name Observation Time Observation Value Comments Source Systolic (mm Hg) 2019-07-27 20:13:00 Sami rial [place] Diastolic (mm Hg) 2019-07-27 20:13:00 Mem orial [place] Heart Rate 2019-07-27 20:13:00 [facility] [place] Respitory Rate 2019-07-27 20:13:00 Memori al [place] Height 2019-07-27 20:13:00 160.02 cm [facility] [place] Weight 2019-07-27 20:13:00 [facility] [place] BMI Calculated 2019-07-27 20:13:00 Memori al [place] Respitory Rate 2016-07-16 07:16:00 Memori al [place] Systolic (mm Hg) 2016-07-16 07:16:00 Sami rial [place] Diastolic (mm Hg) 2016-07-16 07:16:00 Mem orial [place] Temperature Oral (F) 2016-07-16 07:16:00 98.2 F [facility] [place] Temperature Oral (F) 2016-07-16 05:06:00 98.6 F [facility] [place] Respitory Rate 2016-07-16 05:06:00 Memori al [place] Diastolic (mm Hg) 2016-07-16 05:06:00 Mem orial [place] Systolic (mm Hg) 2016-07-16 05:06:00 Sami rial [place] Weight 2016-07-16 04:31:00 [facility] [place] Respitory Rate 2016-07-16 04:31:00 Memori al [place] Heart Rate 2016-07-16 04:31:00 [facility] [place] Temperature Oral (F) 2016-07-16 04:31:00 98.8 F [facility] [place] BMI Calculated 2016-07-16 04:31:00 Memori al [place] Height 2016-07-16 04:31:00 154.94 cm [facility] [place] Systolic (mm Hg) 2016-07-16 04:31:00 Sami rial [place] Diastolic (mm Hg) 2016-07-16 04:31:00 Mem orial [place] Respitory Rate 2016-07-14 16:00:00 Memori al [place] Temperature Oral (F) 2016-07-14 15:41:00 97.9 F [facility] [place] Systolic (mm Hg) 2016-07-14 15:00:00 Sami rial [place] Diastolic (mm Hg) 2016-07-14 15:00:00 Mem orial [place] Respitory Rate 2016-07-14 15:00:00 Memori al [place] Systolic (mm Hg) 2016-07-14 14:00:00 Sami rial [place] Diastolic (mm Hg) 2016-07-14 14:00:00 Mem orial [place] Respitory Rate 2016-07-14 14:00:00 Memori al [place] Systolic (mm Hg) 2016-07-14 13:00:00 Sami rial [place] Diastolic (mm Hg) 2016-07-14 13:00:00 Mem orial [place] Heart Rate 2016-07-14 05:38:00 [facility] [place] Heart Rate 2016-07-14 05:19:00 [facility] [place] Heart Rate 2016-07-14 05:04:00 [facility] [place] Temperature Oral (F) 2016-07-13 18:30:00 98.0 F [facility] [place] Temperature Oral (F) 2016-07-13 14:00:00 98.1 F [facility] [place] Weight 2016-07-12 06:59:00 [facility] [place] Weight 2016-07-12 02:34:00 [facility] [place] Height 2016-07-12 02:34:00 152.4 cm [facility] [place] BMI Calculated 2016-07-12 02:34:00 Memori al [place] Procedures Procedure Date / Time Performed Performing Clinician [facility] e Creation of SVP shunt [facility] rmann Encounters Start End Encounter Admission Attending Care Care Encounter Source Date/Time Date/Time Type Type Clinicians Facility Department ID 2019-09-28 2019-09-28 Orders Doctor CATARINO [id number] 00:00:00 00:00:00 Only Unassigned, JANNIE [id number] [facility] [id number] 2019-09-09 2019-09-09 Outpatient Carolina, MHMISCHER MHMISCHER [id number] 11:00:00 11:00:00 Greman 03 Rolan 2019-09-08 2019-09-08 Outpatient Carolina, MHMISCHER MHMISCHER [id number] 15:30:00 15:30:00 German 04 Rolan 2019-08-12 2019-08-12 Outpatient Carolina, MHMISCHER MHMISCHER [id number] 15:30:00 15:30:00 German Rolan 2019-07-29 2019-07-29 Orders Doctor CATARINO [id number] 00:00:00 00:00:00 Only Unassigned, JANNIE [id number] [facility] [id number] 2019-07-27 2019-07-27 Outpatient Carolina, MHMISCHER MHMISCHER [id number] 14:00:00 23:59:59 German Rolan 2016-07-15 2016-07-16 Outpatient Juliet, MHSE [place] [id number] 22:24:00 01:27:00 Verona Ahmed 00 2016-07-11 2016-07-14 Outpatient Esquenazi [facility] [id number] 20:34:00 11:57:00 PriyankJenaro Alon 2004-07-18 2004-07-18 Orders Doctor CATARINO [id number] 00:00:00 00:00:00 Only Unassigned, JANNIE [id number] [facility] [id number] Results Test Description Test Time Test Comments [facility] B[facility] 2016-07-13 34 Memorial 13:35:00 [place] BODY FLUIDS 2016-07-13 Colorless Memorial 13:35:00 (07/13/16 7:35 Roslyn AM) BODY FLUIDS 2016-07-13 Clear (07/13/16 Memorial 13:35:00 7:35 AM) Roslyn BODY FLUIDS 2016-07-13 xxxxxxx Memorial 13:35:00 (07/13/16 7:35 [place] AM) BODY FLUIDS 2016-07-13 0 Memorial 13:35:00 Roslyn BODY FLUIDS 2016-07-13 Colorless [facility] 13:35:00 (07/13/16 7:35 [place] AM) BODY FLUIDS 2016-07-13 1 Memorial 13:35:00 Roslyn BODY FLUIDS 2016-07-13 56 Memorial 13:35:00 [place] IMMUNOLOGY 2016-07-13 1010 Memorial 13:35:00 [place] IMMUNOLOGY 2016-07-13 4100.0 Memorial 13:35:00 [place] IMMUNOLOGY 2016-07-13 1.7 Memorial 13:35:00 [place] IMMUNOLOGY 2016-07-13 14.7 Memorial 13:35:00 [place] IMMUNOLOGY 2016-07-13 0.5 Memorial 13:35:00 [place] HEMATOLOGY 2016-07-13 9.2 Memorial 07:33:00 [place] HEMATOLOGY 2016-07-13 283 Memorial 07:33:00 Roslyn HEMATOLOGY 2016-07-13 84.9 Memorial 07:33:00 [place] HEMATOLOGY 2016-07-13 0.96 Memorial 07:33:00 Roslyn HEMATOLOGY 2016-07-13 07:33:00 Test Item Value Reference Range Interpretation Comme nts PTT (test code = PTT) 31.9 s 22.9-35.8 [facility] WxjgvhuQBGMSTKKWM9485-93-89 07:33:00 Test Item Value Reference Range Interpretation Comments PT (test code = PT) 13.0 s 12.0-14.7 [facility]annCHEM FRUMM9185-95-21 07:33:68851Djtlinbr HermannCHEM PANEL 2016-07-13 07:33:008.8[facility] HermannCHEM UJLME4321-37-49 07:33:0023[facility] HermannCHEM ACRTE2673-33-40 07:33:65061Psyvjahh HermannCHEM UUPUM2356-11-39 07:33:000.61[facility] HermannCHEM PNVWO8041-31-32 07:33:56528Utuoazgc HermannCHEM FZICV8115-44-68 07:33:007[facility] HermannCHEM WTYDH1940-34-48 07:33:003.9 [facility]annCHEM GUXQR0645-78-19 07:33:0088[facility] HermannCHEM PANEL 2016-07-13 07:33:0014.9[facility]orial TpkkvmdTTUAWDUFIH6177-80-48 07:33:0037.9[facility] CownwiiEPMAWQWUGN0840-34-15 07:33:0052.1[facility] QewowktOGTJMETIRB1160-72-12 07:33:007.3[facility] BsfhwciAJWURQOQZN2236-58-66 07:33:000.8[facility] [place] ZFGSZGYFPU3494-78-72 07:33:001.9[facility] BcnoitcIIQWLOYPAO2797-03-28 07:33:003.8 [facility] NzrvcjsOFANYAUNJB9120-84-63 07:33:000.1[facility] HermannHEMATOLOGY 2016-07-13 07:33:000.5[facility] NvnzylaFNLMABUWHQ4328-85-47 07:33:002.7[facility] JxicqqlSWIVMGEZBE5725-35-03 07:33:000.1[facility] KukkamdMHQZFWLKYI0691-10-66 07:33:004.53[facility] JkfbhbnYFQJHXGXGN9977-49-48 07:33:007.2[facility] [place] HDBRDUUSAU2217-83-93 07:33:0038.5[facility] CggeiysDETIUWJOJC1331-36-28 07:33:00 13.0[facility] JonkplkZJRGHJOFQO4844-60-97 07:33:0033.9[facility] HermannHEMATOLOGY 2016-07-13 07:33:00 Test Item Value Reference Range Interpretation Comments MCH (test code = MCH) 28.8 pg 27.0-31.0 Memorial VdazmqlYWNBFUBCUZ2785-56-13 07:33:0014.0[facility] HermannCARDIAC ENZYMES 2016-07-12 22:45:00<0.010[facility] HermannCARDIAC REEWWEB8327-57-33 22:45:0033 [facility] KaquhfoUDYADSMXZ1028-27-96 22:45:0035[facility] HermannHEMATOLOGY 2016-07-12 06:39:00639Gphwxemh AfzfnfhLREJHUQJTS5068-88-71 06:39:0013.5[facility] KvuthuzCLZEZFMVLT2731-86-04 06:39:009.3[facility] XpuvnsvOOXMZDNRST6639-37-47 06:39:004.46[facility] BzbxlsvPQQFAEUXXI4133-76-37 06:39:0012.6[facility] [place] HFBCEMHMRL0911-64-78 06:39:0037.4[facility] ColrhwhHUJZVOQWMD4401-42-64 06:39:00 83.9[facility] CruimjfYVIYZUWKIB1842-11-03 06:39:009.4[facility] HermannHEMATOLOGY 2016-07-12 06:39:00 Test Item Value Reference Range Interpretation Comments MCH (test code = MCH) 28.3 pg 27.0-31.0 Memorial XqzsirgMHXADGWRLG3133-07-50 06:39:0033.8[facility] HermannHEMATOLOGY 2016-07-12 06:39:00 Test Item Value Reference Range Interpretation Comments PTT (test code = PTT) 33.7 s 22.9-35.8 Memorial CxipnexIIQWPSAUIA5735-56-73 06:39:001.02[facility] HermannHEMATOLOGY 2016-07-12 06:39:00 Test Item Value Reference Range Interpretation Comments PT (test code = PT) 13.6 s 12.0-14.7 Memorial XhbuydaHMPHVWEWSE5953-96-52 06:39:005.5[facility] HermannHEMATOLOGY 2016-07-12 06:39:000.6[facility] XvxtomlXIHTDQAPZO0790-18-79 06:39:003.0[facility] QzeansvUZFVDJKMXM7665-54-10 06:39:000.1[facility] GmdsvveRKWVXALAVW0369-31-75 06:39:000.1[facility] DtwigheCXWOIVHFAG2400-97-70 06:39:000.9[facility] [place] MMFLMGIMJB3798-60-93 06:39:0058.7[facility] BkzwzmwXDGQTVZNMW7609-72-92 06:39:00 32.5[facility] DdbdyjoIOIPODWHPC8697-21-08 06:39:006.5[facility] HermannHEMATOLOGY 2016-07-12 06:39:001.4[facility] HermannURINE AND FBPAB1417-67-12 06:39:001 [facility]annUR[facility] AND GZCJD1081-79-30 06:39:00Not Indicated *NA*(07/12/16 12:39 AM)[facility] AND YWTUL4531-29-84 06:39:00Clear (07/12/16 12:39 AM)[facility] AND SZWSV2448-28-87 06:39:001.011[facility]annUR[facility] AND RXJUQ1439-02-88 06:39:006.5[facility]annUR[facility] AND BNDQX9846-91-16 06:39:00Yellow *NA*(07/12/16 12:39 AM)[facility] AND UYQLG9130-15-64 06:39:00Negative (07/12/16 12:39 AM)[facility] AND PEHWL5063-19-62 06:39:00Negative *NA*(07/12/16 12:39 AM)[facility] STOOL 2016-07-12 06:39:00Negative (07/12/16 12:39 AM)[facility] AND STOOL 2016-07-12 06:39:00Negative (07/12/16 12:39 AM)[facility] CHEM 2016-07-12 06:39:00Negative (07/12/16 12:39 AM)[facility] HermannDRUG SCREEN 2016-07-12 06:39:00Negative *NA*(07/12/16 12:39 AM)[facility] HermannDRUG SCREEN 2016-07-12 06:39:00Negative *NA*(07/12/16 12:39 AM)[facility] HermannDRUG SCREEN 2016-07-12 06:39:00Negative *NA*(07/12/16 12:39 AM)[facility] HermannDRUG SCREEN 2016-07-12 06:39:00Negative *NA*(07/12/16 12:39 AM)[facility] HermannDRUG SCREEN 2016-07-12 06:39:00See Note *NA*(07/12/16 12:39 AM)[facility] HermannDRUG SCREEN 2016-07-12 06:39:00Negative *NA*(07/12/16 12:39 AM)[facility] HermannDRUG SCREEN 2016-07-12 06:39:00Negative *NA*(07/12/16 12:39 AM)[facility] HermannDRUG SCREEN 2016-07-12 06:39:00Negative *NA*(07/12/16 12:39 AM)[facility] HermannDRUG SCREEN 2016-07-12 06:39:00Negative *NA*(07/12/16 12:39 AM)[facility] HermannDRUG SCREEN 2016-07-12 06:39:00Negative *NA*(07/12/16 12:39 AM)[facility] HermannBLOOD BANK XBKMBOI5300-10-21 05:50:00Negative (07/11/16 11:50 PM)[facility] HermannCHEM PANEL 2016-07-12 03:20:0093[facility] HermannCHEM VBGUJ2065-24-29 03:20:0015.5[facility] HermannCHEM XKEXP5353-44-47 03:20:16042Njkvzkgn HermannCHEM IITSD0101-91-72 03:20:25154Yosqdpqi HermannCHEM PVAPN4421-49-33 03:20:000.75[facility] HermannCHEM BODJH0313-69-43 03:20:006[facility] HermannCHEM KXSRL7982-06-24 03:20:008.8 [facility] HermannCHEM PSZXK4150-35-32 03:20:0026[facility] HermannCHEM PANEL 2016-07-12 03:20:003.5[facility] HermannCHEM SPJNE9069-92-14 03:20:26344Aoicqzhb [place]
[2020-11-20 22:19] LABS: Urine Blood Trace-lysed (Negative); Urine Glucose Negative (Negative); Urine Protein Negative (Negative); Urine pH 5.5 (5.0-7.0)
[2020-11-20 22:28] LABS: Absolute Lymphocytes (CBC) 1.7 K/uL (0.7-4.9); Basophils % 0.6 % (0-1.3); Lymphocytes % 15.4 % (15.3-44.8); MPV 8.9 fL (7.6-11.3); RBC Red Blood Cell Count 4.76 M/uL (3.86-4.86)
[2020-11-20 22:49] LABS: ALT/SGPT 20 U/L (12-78); AST/SGOT 13 U/L (15-37); Albumin 3.8 g/dL (3.4-5.0); Alkaline Phosphatase 72 U/L (45-117); BUN Blood Urea Nitrogen 6 mg/dL (7-18); Bicarbonate 23 mmol/L (21-32); Bilirubin Direct < 0.1 mg/dL (0-0.2); Bilirubin Total 0.3 mg/dL (0.2-1.0); Glucose Level 89 mg/dL (74-106); Lipase 83 U/L (73-393); Potassium 3.3 mmol/L (3.5-5.1); Protein, Total 7.5 g/dL (6.4-8.2); Sodium Level 140 mmol/L (136-145)
[2020-11-20 22:58] LABS: SARS-COV-2 RT PCR NEGATIVE (NEGATIVE)
[2020-11-21] MEDS ORDERED: ONDANSETRON 4 MG/2 ML VIAL ONE (00:16)
--- NOTE | 2020-11-21 00:21 | ER ---
Nurse's Notes [facility] Name: Shanna Estrella Age: 25 yrs Sex: Female : 1995 Arrival Date: 11/20/2020 Time: 21:03 Bed 14 Private MD: Diagnosis: Nausea and vomiting Presentation: 11/20 21:13 Chief complaint: Patient states: N/V/D for a couple days. No fever. IV R AC by EMS. ll1 Coronavirus screen: Client denies travel out of the [place] in the last 14 days. diarrhea, fatigue, nausea, vomiting. Client presents with at least one sign or symptom that may indicate coronavirus-19. Standard/surgical mask placed on the client. Ebola Screen: Patient denies travel to an Ebola-affected area in the 21 days before illness onset. Initial Sepsis Screen: Does the patient meet any 2 criteria? HR > 90 bpm. No. Patient's initial sepsis screen is negative. Does the patient have a suspected source of infection? Yes: Acute abdominal pain. Risk Assessment: Do you want to hurt yourself or someone else? Patient reports no desire to harm self or others. Onset of symptoms. 21:13 Method Of Arrival: EMS ll1 21:13 Acuity: ELI 3 ll1 Historical: - Allergies: 21:15 Amoxicillin; ll1 21:15 Lamictal; ll1 21:15 lamotrigine; ll1 21:15 PENICILLINS; ll1 21:15 Tape; ll1 - PMHx: 21:15 Anxiety; Bronchitis; chiari malformation; Depression; epilepsy; hydrocephaly; memory ll1 loss; Pneumonia; PTSD; Seizures; - PSHx: 21:15 SPOKE MAKER shunt; "decompression" surgery; SPOKE MAKER shunt revision; ll1 - Social history:: Smoking status: Patient denies any tobacco usage or history of. Screenin:59 Abuse screen: Denies threats or abuse. Nutritional screening: No deficits noted. ll1 Tuberculosis screening: No symptoms or risk factors identified. Fall Risk No fall in past 12 months (0 pts). No secondary diagnosis (0 pts). IV access (20 points). Ambulatory Aid- None/Bed Rest/Nurse Assist (0 pts). Gait- Normal/Bed Rest/Wheelchair (0 pts) Mental Status- Oriented to own ability (0 pts). Total Zamora Fall Scale indicates No Risk (0-24 pts). Assessment: 21:45 General: Appears in no apparent distress. comfortable, Behavior is calm, cooperative. vg1 General: Patient states has a canker sore in mouth, rates pain 4/10, ABD is 0/10. Pain: Complains of pain in abdomen and mouth. Neuro: Level of Consciousness is awake, alert, obeys commands, Oriented to person, place, time, situation. Cardiovascular: Patient's skin is warm and dry. Respiratory: Airway is patent Respiratory effort is even, unlabored. GI: Abdomen is flat, Bowel sounds hypoactive in right upper quadrant, left upper quadrant, right lower quadrant and left lower quadrant Reports diarrhea, nausea, vomiting. : No signs and/or symptoms were reported regarding the genitourinary system. EENT: No signs and/or symptoms were reported regarding the EENT system. Derm: Skin is intact, is healthy with good turgor. Musculoskeletal: Circulation, motion, and sensation intact. 23:10 Reassessment: Patient appears in no apparent distress at this time. No changes from vg1 previously documented assessment. Patient and/or family updated on plan of care and expected duration. Pain level reassessed. Patient is alert, oriented x 3, equal unlabored respirations, skin warm/dry/pink. Pt c/o of nausea, provider notified. Vital Signs: 21:13 BP 112 / 89; Pulse 106; Resp 17; Temp 98.1; Pulse Ox 96% on R/A; ll1 21:30 BP 119 / 86; Pulse 88; Resp 14; Pulse Ox 100% ; ll1 22:30 BP 106 / 73; Pulse 87; Resp 16; Pulse Ox 98% on R/A; vg1 23:10 BP 110 / 88; Pulse 85; Resp 16; Pulse Ox 98% on R/A; vg1 0407 00:04 BP 117 / 90; Pulse 82; Resp 14; Pulse Ox 99% on R/A; vg1 00:30 BP 102 / 81; Pulse 85; Resp 16; sf ED Course: 11/20 21:03 Patient arrived in ED. mw2 21:13 Arm band placed on Patient placed in an exam room, on a stretcher. ll1 21:14 Tho Ridley NP is PHCP. pm1 21:14 Francisco Becerra MD is Attending Physician. pm1 21:15 Triage completed. ll1 21:36 Markos Lim, RN is Primary Nurse. ll1 21:50 Maintain EMS IV. Dressing intact. Good blood return noted. Site clean \\T\\ dry. Gauge \\T\\ ll 1 site: 22 Right FA. 21:59 COVID swab sent to lab. Flu and/or RSV swab sent to lab. jp3 22:00 Patient has correct armband on for positive identification. Bed in low position. Call ll1 light in reach. Side rails up X 1. Adult w/ patient. 22:11 Initial lab(s) drawn, by me, sent to lab. jp3 23:38 Primary Nurse role handed off by Markos Lim, BANG vg1 23:38 Tri Schneider RN is Primary Nurse. vg1 04 00:11 Report given to BANG Yung. vg1 00:45 No provider procedures requiring assistance completed. IV discontinued, intact, sf bleeding controlled, No redness/swelling at site. Pressure dressing applied. 00:47 COVID-19 : Document "Date of Symptom Onset" if Symptomatic. Sent. sf Administered Medications: 00:04 Drug: Zofran (Ondansetron) 4 mg Route: IVP; Site: right antecubital; vg1 00:31 Follow up: Response: No adverse reaction; Nausea is decreased sf Outcome: 00:20 Discharge ordered by . pm1 00:45 Discharged to home ambulatory. sf 00:45 Condition: stable 00:45 Discharge instructions given to patient, Instructed on discharge instructions, follow up and referral plans. medication usage, Demonstrated understanding of instructions, follow-up care, medications, Prescriptions given X 1. 00:47 Patient left the ED. sf Signatures: Tho Ridley, FRANKIE NPS pm1 Charline Phelan mw2 Jad Zavala jp3 Tri Schneider, BANG RN vg1 Markos Lim, BANG RN ll1 Dilshad Kurtz RN RN sf Corrections: (The following items were deleted from the chart) 11/20 22:01 21:45 GI: Reports diarrhea, nausea, vomiting, ll1 ll1 22:07 21:45 General: Appears in no apparent distress. comfortable, Behavior is calm, vg1 cooperative, ll1 22:07 21:45 Pain: Complains of pain in mouth and ABD Pain currently is 4 out of 10 on a pain vg1 scale. [facility] 22:07 21:45 General: Pt states canker in mouth, rates pain 4/10. States ABD is 0/10. [place] [id number] 22:07 21:45 Neuro: Level of Consciousness is awake, alert, obeys commands, Oriented to vg1 person, place, time, situation, [facility] 22:07 21:45 Cardiovascular: Patient's skin is warm and dry. [place] [id number] 22:07 21:45 Respiratory: Airway is patent Respiratory effort is even, unlabored, [place] [id number] 22:07 21:45 : No signs and/or symptoms were reported regarding the genitourinary system. [facility] later [facility] 22:07 21:45 EENT: No signs and/or symptoms were reported regarding the EENT system. [place] [id number] 22:07 21:45 Derm: Skin is intact, is healthy with good turgor, [place] [id number] 22:07 21:45 Musculoskeletal: Circulation, motion, and sensation intact. [place] [id number] 22:07 21:45 GI: Bowel sounds hypoactive in right upper quadrant, left upper quadrant, right vg1 lower quadrant and left lower quadrant Reports diarrhea, nausea, vomiting, [facility] 23:14 23:10 Reassessment: Patient appears in no apparent distress at this time. No changes vg1 from previously documented assessment. Patient and/or family updated on plan of care and expected duration. Pain level reassessed. Patient is alert, oriented x 3, equal unlabored respirations, skin warm/dry/pink. vg1
--- NOTE | 2020-11-21 00:21 | EDPHYS ---
Physician Documentation [facility] Name: Shanna Estrella Age: 25 yrs Sex: Female : 1995 Arrival Date: 11/20/2020 Time: 21:03 Bed 14 Private MD: LISA Physician Francisco Becerra HPI: 11/21 00:03 This 25 yrs old Female presents to ER via EMS with complaints of Vomiting and pm1 Diarrhea. 00:03 The patient presents to the emergency department with nausea, vomiting, 2 times since pm1 the onset of symptoms, diarrhea, 4-5 times daily. 00:03 Onset: The symptoms/episode began/occurred 1 week(s) ago. Possible causes: unknown. The pm1 symptoms are aggravated by nothing. The symptoms are alleviated by nothing. Associated signs and symptoms: Pertinent negatives: abdominal pain, dysuria, fever. Severity of symptoms: in the emergency department the symptoms are unchanged. The patient has not experienced similar symptoms in the past. The patient has not recently seen a physician. 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 ROS: 11/21 00:03 Constitutional: Negative for fever, chills, and weight loss, Cardiovascular: Negative pm1 for chest pain, palpitations, and edema, Respiratory: Negative for shortness of breath, cough, wheezing, and pleuritic chest pain. Back: Negative for injury and pain, : Negative for injury, bleeding, discharge, and swelling, MS/Extremity: Negative for injury and deformity, Skin: Negative for injury, rash, and discoloration, Neuro: Negative for headache, weakness, numbness, tingling, and seizure. Abdomen/GI: Positive for nausea, vomiting, and diarrhea, Negative for abdominal pain, constipation. Exam: 00:03 Constitutional: This is a well developed, well nourished patient who is awake, alert, pm1 and in no acute distress. Head/Face: Normocephalic, atraumatic. 00:03 Back: No spinal tenderness. No costovertebral tenderness. Full range of motion. Skin: Warm, dry with normal turgor. Normal color with no rashes, no lesions, and no evidence of cellulitis. MS/ Extremity: Pulses equal, no cyanosis. Neurovascular intact. Full, normal range of motion. 00:03 Cardiovascular: Exam negative for acute changes, Rate: normal, Rhythm: regular, Pulses: no pulse deficits are appreciated. 00:03 Respiratory: Exam negative for acute changes, respiratory distress, shortness of breath. 00:03 Abdomen/GI: Inspection: abdomen appears normal, Palpation: abdomen is soft and non-tender, in all quadrants. 00:03 Neuro: Exam negative for acute changes, Orientation: is normal, Mentation: is normal, Motor: is normal, moves all fours. Vital Signs: 11/20 21:13 BP 112 / 89; Pulse 106; Resp 17; Temp 98.1; Pulse Ox 96% on R/A; ll1 21:30 BP 119 / 86; Pulse 88; Resp 14; Pulse Ox 100% ; ll1 22:30 BP 106 / 73; Pulse 87; Resp 16; Pulse Ox 98% on R/A; vg1 23:10 BP 110 / 88; Pulse 85; Resp 16; Pulse Ox 98% on R/A; vg1 11/21 00:04 BP 117 / 90; Pulse 82; Resp 14; Pulse Ox 99% on R/A; vg1 00:30 BP 102 / 81; Pulse 85; Resp 16; sf MDM: 11/20 21:20 Patient medically screened. pm1 11/21 00:19 Data reviewed: vital signs. Data interpreted: Pulse oximetry: on room air is 99 %. pm1 Interpretation: normal. Counseling: I had a detailed discussion with the patient and/or guardian regarding: the historical points, exam findings, and any diagnostic results supporting the discharge/admit diagnosis, lab results, the need for outpatient follow up, to return to the emergency department if symptoms worsen or persist or if there are any questions or concerns that arise at home. 11/20 21:21 Order name: Basic Metabolic Panel; Complete Time: 23:57 pm1 11/20 21:21 Order name: CBC with Diff; Complete Time: 23:57 pm1 11/20 21:21 Order name: Hepatic Function; Complete Time: 23:57 pm1 11/20 21:21 Order name: Lipase; Complete Time: 23:57 pm1 04 21:21 Order name: IV Saline Lock; Complete Time: 21:50 pm1 11/20 21:23 Order name: COVID-19 : Document "Date of Symptom Onset" if Symptomatic. pm1 11/20 22:19 Order name: Urine Dipstick-Ancillary; Complete Time: 23:57 EDMS 11/20 22:19 Order name: Urine --Ancillary (enter results) mw2 11/20 22:59 Order name: COVID-19/FLU A+B; Complete Time: 23:57 EDMS 11/20 21:21 Order name: Labs collected and sent; Complete Time: 21:50 pm1 Administered Medications: 00:04 Drug: Zofran (Ondansetron) 4 mg Route: IVP; Site: right antecubital; vg1 00:31 Follow up: Response: No adverse reaction; Nausea is decreased sf Disposition: 06:41 Co-signature as Attending Physician, Francisco Becerra MD I agree with the assessment and [facility] plan of care. Disposition: 11/21/20 00:20 Discharged to Home. Impression: Nausea and vomiting. - Condition is Stable. - Discharge Instructions: Food Choices to Help Relieve Diarrhea, Adult, Diarrhea, Adult, Nausea and Vomiting, Adult, Viral Gastroenteritis, Adult. - Prescriptions for Zofran ODT 4 mg Oral tablet,disintegrating - place 1 tablet by TRANSLINGUAL route every 8 hours As needed; 12 tablet. - Medication Reconciliation Form, Thank You Letter, Antibiotic Education, Prescription Opioid Use form. - Follow up: Emergency Department; When: As needed; Reason: Worsening of condition. Follow up: Private Physician; When: 2 - 3 days; Reason: Recheck today's complaints, Continuance of care, Re-evaluation by your physician. - Problem is new. - Symptoms have improved. Signatures: Dispatcher [employer] Francisco Eagle MD MD cha Marinas, Patrick, INSTANT POWDER SUPERVISOR INSTANT POWDER SUPERVISOR pm1 Tri Schneider RN RN vg1 Markos Lim RN RN 1 Dilshad Kurtz RN RN sf Corrections: (The following items were deleted from the chart) 11/20 22:00 21:22 Influenza Screen (A \\T\\ B)+[id number] ordered. [facility] EDMI 22:00 21:22 Influenza Screen (A ordered. [facility] 22:00 21:23 CORONAVIRUS ordered. [facility] 04 00:30 00:20 11/21/2020 00:20 Discharged to Home. Impression: Nausea and vomiting; Diarrhea, pm1 unspecified. Condition is Stable. Forms are Medication Reconciliation Form, Thank You Letter, Antibiotic Education, Prescription Opioid Use. Follow up: Emergency Department; When: As needed; Reason: Worsening of condition. Follow up: Private Physician; When: 2 - 3 days; Reason: Recheck today's complaints, Continuance of care, Re-evaluation by your physician. Problem is new. Symptoms have improved. pm1 00:47 00:30 11/21/2020 00:20 Discharged to Home. Impression: Nausea and vomiting. Condition sf is Stable. Discharge Instructions: Food Choices to Help Relieve Diarrhea, Adult, Diarrhea, Adult, Nausea and Vomiting, Adult, Viral Gastroenteritis, Adult. Prescriptions for Zofran ODT 4 mg Oral tablet,disintegrating - place 1 tablet by TRANSLINGUAL route every 8 hours As needed; 12 tablet. and Forms are Medication Reconciliation Form, Thank You Letter, Antibiotic Education, Prescription Opioid Use. Follow up: Emergency Department; When: As needed; Reason: Worsening of condition. Follow up: Private Physician; When: 2 - 3 days; Reason: Recheck today's complaints, Continuance of care, Re-evaluation by your physician. Problem is new. Symptoms have improved. pm1
[2020-11-21 02:12] VITALS: TEMP 98.1
[2020-11-21 02:17] VITALS: O2SAT 99
[2020-11-21 02:18] VITALS: BP 102/81
== END 2020-11-21 00:47 | disposition home or self-care (01) ==
LOC: ER 21:00
DX: R11.2 Nausea with vomiting, unspecified (principal); Z20.822 Contact with and (suspected) exposure to COVID-19; Z98.2 Presence of cerebrospinal fluid drainage device; Z88.0 Allergy status to penicillin; Z88.1 Allergy status to other antibiotic agents; Z88.8 Allergy status to other drugs, medicaments and biological substances; Z91.048 Other nonmedicinal substance allergy status
CPT/HCPCS: 0240U; 36415; 80048; 80076; 81003; 81025; 83690; 85025; 96374; 99284

== ENCOUNTER 2020-12-31 23:47 | Emergency (ER) | payer SELFPAY ==
--- OUTSIDE RECORDS SUMMARY | 2020-12-31 23:53 | XMS REPORT | Continuity of Care Document ---
:1995 Author Organization [facility] t Address [address] [place] [address] Care Team Providers Name Role Phone Doctor Unassigned, Name Attending Clinician Unavailable Rolan Figueroa Attending Clinician Renata Chung Attending Clinician Brianne Yost Attending Clinician Brianne Yost Admitting Clinician Problems Condition Condition Condition Status Onset Resolution Last Treating Co mments Source Name Details Category Date Date Treatment Clinician Date OTHER Diagnosis Active 2015-082016-07-15 [facility] oria 09-14 22:55:00 l OTHER 00:00: [place] 00 Active 07/15/2016 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 Depressive Problem Resolve 2019-09-11 Memoria disorder d 22:27:01 l (disorder) Ernie n Depressive disorder (disorder) Resolved Problem 09/11/2019 [facility] Neuro,[facility] Posttrauma Problem Resolve 2019-09-11 Memoria tic stress d 22:27:01 l disorder [place] (disorder) Posttrauma tic stress disorder (disorder) Resolved Problem 09/11/2019 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) Active Problem 09/11/2019 [facility] Neuro Hydrocepha Problem Active 2019-09-11 M emoria willam 22:27:01 l (disorder) Ernie n Hydrocepha willam (disorder) Active Problem 09/11/2019 [facility] Neuro,[facility] Simple Problem Active 2019-09-11 Memor ia obesity 22:27:01 l (disorder) Simple Herm abran obesity (disorder) Active Problem 09/11/2019 [facility] History of Past Illness Condition Condition Condition Status Onset Resolution Last Treating Co mments Source Name Details Category Date Date Treatment Clinician Date Discharge Problem 2015-082016-07-19 2016-07-19 Memoria Diagnosis: 09-15 04:14:28 04:14:28 l Acute 06:00: [place] cervical Discharge 00 sprain Diagnosis: Acute cervical sprain 07/16/2016 07/19/2016 [facility] Allergies, Adverse Reactions, Alerts Allergy Allergy Status Severity Reaction(s) Onset Inactive Treating Comm ents Source Name Type Date Date Clinician penicill penicill Active Memori a ins ins l [place] amoxicil amoxicil Active Memori a clovis clovis l [place] [facility] Active Memoria Tape Tape l [place] LaMICtal LaMICtal Active Memori a l [place] Social History Smoking Status Start Date Stop Date Source Social History 2019-07-27 20:14:00 [facility] Medications Ordered Filled Start Stop Current Ordering Indication Dosage Frequency Signature Comments Components Source Medication Medication Date Date Medication? Clinician (SIG) Name Name oxcarbazepi 2018-08 Yes 150 mg = 1 Memoria ne 150 MG 2-11 tab, PO, l Oral Tablet 21:10: BID, # 60 H ermann [Trileptal] 00 tab, 3 Refill(s), Pharmacy: [place] [id number] Ketorolac 2015-08 No 60 mg, Memori a 09-15 Route: IM, l 05:21: Drug form: [place] 00 INJ, ONCE, Dosing Weight 84.545, kg, Priority: STAT, Start date: 07/15/16 23:21:00 REGIONAL EDUCATION MANAGER, Stop date: 07/15/16 23:21:00 REGIONAL EDUCATION MANAGER Valium 2015-08 No 5 mg, Memoria 09-15 Route: IM, l 05:21: Drug form: [place] 00 INJ, ONCE, Dosing Weight 84.545, kg, Priority: STAT, Start date: 07/15/16 23:21:00 REGIONAL EDUCATION MANAGER, Stop date: 07/15/16 23:21:00 REGIONAL EDUCATION MANAGER Ativan 2015-08 No Notes: Memoria 09-13 (Same as: l 05:15: Ativan) [place] 00 nystatin 2015-08 No Notes: Memoria topical 09-12 (Same l 100,000 23:00: as:Mycosta Herm abran units/g 00 tin, cream Nilstat) For external use only. Nystatin 2015-08 No 1 appl, Memori a [id number] 09-12 Route: l UNT/ML / 15:00: TOP, TID, Herm abran Triamcinolo 00 Drug form: ne CRM, Start Acetonide 1 date: MG/ML 07/13/16 Topical 9:00:00 Cream REGIONAL EDUCATION MANAGER, Duration: 30 day, Stop date: 08/11/16 17:00:00 REGIONAL EDUCATION MANAGER Sodium 2015-08 No 250 mL, Memoria Chloride 09-11 250 ml/hr, l 0.154 22:18: Infuse [place] MEQ/ML 00 Over: 1 Injectable hr, Route: Solution IV, 250, Drug form: INJ, ONCE, Priority: STAT, Dosing Weight 84.545 kg, Start date: 07/12/16 16:18:00 REGIONAL EDUCATION MANAGER, Duration: 1 doses or times, Stop date: 07/12/16 16:18:00 REGIONAL EDUCATION MANAGER Promethazin 2015-08 No Notes: Do M kat e 09-11 not give l 22:17: IV push. [place] 00 (Same as: Phenergan) Docusate 2015-08 No Notes: Memoria 09-11 (Same as: l 15:00: Colace) [place] (Do Not Crush) sennosides, 2015-08 No Notes: Sami stefani CARE HOME 09-11 (Same as: l 15:00: Senokot) [place] Saline 2015-08 No Notes: Memoria Flush 0.9% 09-11 (Same as: l 15:00: BD [place] Posiflush) tramadol 2015-08 Yes 50 mg = [...] Abnormal Lab Result, Start date: 07/11/16 22:18:00 REGIONAL EDUCATION MANAGER, Duration: 30 day, Stop date: 08/10/16 22:17:00 REGIONAL EDUCATION MANAGER Bisacodyl 2015-08 No Notes: Memori a 09-11 (Same As: l 04:18: Dulcolax, [place] 00 Bisco-Lax) Saline 2015-08 No Notes: Memoria Flush 0.9% 09-11 (Same as: l 04:18: BD [place] 00 Posiflush) Ondansetron 2015-08 No Notes: Sami stefani 09-11 (Same as: l 04:18: Zofran) [place] 00 MEDICATION WASTE Product Size: 4 mg Product Wasted: _0__ mg Acetaminoph 2015-08 No Notes: Do M emoria en 325 MG / 09-11 not exceed l Hydrocodone 04:18: 4gm/day of [place] Bitartrate 00 acetaminop 10 MG Oral hen. Tablet (Same as: [place] 325/10) Acetaminoph 2015-08 No Notes: Sami stefani en 325 MG / 09-11 (Same as: l Hydrocodone 04:18: [place] Danika nn Bitartrate 00 325/5) Do 5 MG Oral not exceed Tablet 4gm/day of acetaminop hen. Sodium 2015-08 No 1,000 mL, Memori a Chloride 09-11 Rate: 75 l 0.154 04:18: ml/hr, [place] MEQ/ML 00 Infuse Injectable over: 13.3 Solution hr, Route: IV, Dosing Weight 84.545 kg, Total Volume: 1,000, Start date: 07/11/16 22:18:00 REGIONAL EDUCATION MANAGER, Duration: 30 day, Stop date: 08/10/16 22:17:00 REGIONAL EDUCATION MANAGER Reglan 2015-08 No Notes: Memoria 09-11 (Same as: l 02:59: Reglan) [place] 00 Sodium 2015-08 No 1,000 mL, Memori a Chloride 09-11 1,000 l 0.154 02:59: ml/hr, [place] MEQ/ML 00 Infuse Injectable Over: 1 Solution hr, Route: IV, 1,000, Drug form: INJ, ONCE, Priority: STAT, Dosing Weight 84.545 kg, Start date: 07/11/16 20:59:00 REGIONAL EDUCATION MANAGER, Duration: 1 doses or times, Stop date: 07/11/16 20:59:00 REGIONAL EDUCATION MANAGER Acetaminoph 2015-08 No Notes: Max Memoria en 09-11 acetaminop l 02:59: hen 4000 [place] 00 mg/day (4 gm/day). (Same as: Tylenol Extra Strength) Vital Signs Vital Name Observation Time Observation Value Comments Source Systolic (mm Hg) 2019-07-27 20:13:00 Sami rial [place] Diastolic (mm Hg) 2019-07-27 20:13:00 Mem orial [place] Heart Rate 2019-07-27 20:13:00 [facility] [place] Respitory Rate 2019-07-27 20:13:00 Memori al [place] Height 2019-07-27 20:13:00 160.02 cm [facility] [place] Weight 2019-07-27 20:13:00 [facility] [place] BMI Calculated 2019-07-27 20:13:00 Memori al [place] Respitory Rate 2016-07-16 07:16:00 Memori al [place] Systolic (mm Hg) 2016-07-16 07:16:00 Sami rial [place] Diastolic (mm Hg) 2016-07-16 07:16:00 Mem orial [place] Temperature Oral (F) 2016-07-16 07:16:00 98.2 F [facility] [place] Temperature Oral (F) 2016-07-16 05:06:00 98.6 F [facility] [place] Respitory Rate 2016-07-16 05:06:00 Memori al [place] Diastolic (mm Hg) 2016-07-16 05:06:00 Mem orial [place] Systolic (mm Hg) 2016-07-16 05:06:00 Sami rial [place] Weight 2016-07-16 04:31:00 [facility] [place] Respitory Rate 2016-07-16 04:31:00 Memori al [place] Heart Rate 2016-07-16 04:31:00 [facility] [place] Temperature Oral (F) 2016-07-16 04:31:00 98.8 F [facility] [place] BMI Calculated 2016-07-16 04:31:00 Memori al [place] Height 2016-07-16 04:31:00 154.94 cm [facility] [place] Systolic (mm Hg) 2016-07-16 04:31:00 Sami rial [place] Diastolic (mm Hg) 2016-07-16 04:31:00 Mem orial [place] Respitory Rate 2016-07-14 16:00:00 Memori al [place] Temperature Oral (F) 2016-07-14 15:41:00 97.9 F [facility] [place] Systolic (mm Hg) 2016-07-14 15:00:00 Sami rial [place] Diastolic (mm Hg) 2016-07-14 15:00:00 Mem orial [place] Respitory Rate 2016-07-14 15:00:00 Memori al [place] Systolic (mm Hg) 2016-07-14 14:00:00 Sami rial [place] Diastolic (mm Hg) 2016-07-14 14:00:00 Mem orial [place] Respitory Rate 2016-07-14 14:00:00 Memori al [place] Systolic (mm Hg) 2016-07-14 13:00:00 Sami rial [place] Diastolic (mm Hg) 2016-07-14 13:00:00 Mem orial [place] Heart Rate 2016-07-14 05:38:00 [facility] [place] Heart Rate 2016-07-14 05:19:00 [facility] [place] Heart Rate 2016-07-14 05:04:00 [facility] [place] Temperature Oral (F) 2016-07-13 18:30:00 98.0 F [facility] [place] Temperature Oral (F) 2016-07-13 14:00:00 98.1 F [facility] [place] Weight 2016-07-12 06:59:00 [facility] [place] Weight 2016-07-12 02:34:00 [facility] [place] Height 2016-07-12 02:34:00 152.4 cm [facility] [place] BMI Calculated 2016-07-12 02:34:00 Memori al [place] Procedures Procedure Date / Time Performed Performing Clinician [facility] e Creation of OCCUPATIONAL HEALTH NURSE MANAGER shunt [facility] rmann Encounters Start End Encounter Admission Attending Care Care Encounter Source Date/Time Date/Time Type Type Clinicians Facility Department ID 2019-09-28 2019-09-28 Orders Doctor CATARINO [id number] 00:00:00 00:00:00 Only Unassigned, JANNIE [id number] [facility] [id number] 2019-09-09 2019-09-09 Outpatient [place], MHMISCHER MHMISCHER [id number] 11:00:00 11:00:00 German 03 Rolan 2019-09-08 2019-09-08 Outpatient [place], MHMISCHER MHMISCHER [id number] 15:30:00 15:30:00 German 04 Rolan 2019-08-12 2019-08-12 Outpatient Carolina, MHMISCHER MHMISCHER [id number] 15:30:00 15:30:00 German Rolan 2019-07-29 2019-07-29 Orders Doctor CATARINO [id number] 00:00:00 00:00:00 Only Unassigned, JANNIE [id number] [place] [facility] [id number] 2019-07-27 2019-07-27 Outpatient Carolina, MHMISCHER MHMISCHER [id number] 14:00:00 23:59:59 German Rolan 2016-07-15 2016-07-16 Outpatient Juliet, [place]SE [place] [id number] 22:24:00 01:27:00 Verona Ahmed 00 2016-07-11 2016-07-14 Outpatient Esquenazi [facility] [id number] 20:34:00 11:57:00 PriyankJenaro Alon 2004-07-18 2004-07-18 Orders Doctor CATARINO [id number] 00:00:00 00:00:00 Only Unassigned, JANNIE [id number] [place] [facility] [id number] Results Test Description Test Time Test Comments Results Result [facility] Comments BODY FLUIDS 2016-07-13 34 Memorial 13:35:00 [place] BODY FLUIDS 2016-07-13 Colorless Memorial 13:35:00 (07/13/16 7:35 [place] AM) BODY FLUIDS 2016-07-13 Clear (07/13/16 Memorial 13:35:00 7:35 AM) [place] BODY FLUIDS 2016-07-13 xxxxxxx Memorial 13:35:00 (07/13/16 7:35 [place] AM) BODY FLUIDS 2016-07-13 0 Memorial 13:35:00 [place] BODY FLUIDS 2016-07-13 Colorless Memorial 13:35:00 (07/13/16 7:35 [place] AM) BODY FLUIDS 2016-07-13 1 Memorial 13:35:00 [place] BODY FLUIDS 2016-07-13 56 Memorial 13:35:00 [place] IMMUNOLOGY 2016-07-13 1010 Memorial 13:35:00 [place] IMMUNOLOGY 2016-07-13 4100.0 Memorial 13:35:00 [place] IMMUNOLOGY 2016-07-13 1.7 Memorial 13:35:00 [place] IMMUNOLOGY 2016-07-13 14.7 Memorial 13:35:00 [place] IMMUNOLOGY 2016-07-13 0.5 Memorial 13:35:00 [place] HEMATOLOGY 2016-07-13 9.2 Memorial 07:33:00 [place] HEMATOLOGY 2016-07-13 283 Memorial 07:33:00 [place] HEMATOLOGY 2016-07-13 84.9 Memorial 07:33:00 [place] HEMATOLOGY 2016-07-13 0.96 Memorial 07:33:00 [place] HEMATOLOGY 2016-07-13 07:33:00 Test Item Value Reference Range Interpretation Comme nts PTT (test code = PTT) 31.9 s 22.9-35.8 [facility] TojrbsrXGGQBSTTOW0720-21-64 07:33:00 Test Item Value Reference Range Interpretation Comments PT (test code = PT) 13.0 s 12.0-14.7 [facility] [id number] 07:33:27301Vuzevkft HermannCHEM PANEL 2016-07-13 07:33:008.8[facility]annCHEM [id number] 07:33:0023[facility]annCHEM BOTGK9491-82-24 07:33:12715Nhotptjp HermannCHEM EKVZC0051-88-03 07:33:000.61[facility]annCHEM MJLQD9559-42-42 07:33:60614Mfysevrs HermannCHEM KHEYH8411-60-26 07:33:007[facility]annCHEM FLEXJ1261-01-30 07:33:003.9 [facility]ann[facility] PKIJN3857-46-36 07:33:0088[facility] HermannCHEM PANEL 2016-07-13 07:33:0014.9[facility] HugrrzyQBFXWTUHEL5209-61-06 07:33:0037.9[facility] JhsswyxWNYDCMTWVS1120-50-07 07:33:0052.1[facility] JichtjoGKGTDBBKWJ1698-95-65 07:33:007.3[facility] FigeekdIQVROTZBLQ8278-38-84 07:33:000.8[facility] [place] VFVFRSNLMH9951-65-64 07:33:001.9[facility] AhwmpyuWROVZADSPO6063-47-29 07:33:003.8 Memorial IzqtgwdBKNQOQEAQE4285-69-15 07:33:000.1[facility] HermannHEMATOLOGY 2016-07-13 07:33:000.5[facility] HiazeuzINPSUQNOMF1110-43-39 07:33:002.7[facility] KvjgbqqEVUFRVKUKW0408-20-79 07:33:000.1[facility] OpdxdfpTLBVDTGKPZ3052-07-36 07:33:004.53[facility] GumivohTBBGNRFXAR0313-86-90 07:33:007.2[facility] [place] IOMONEQDDJ9711-44-96 07:33:0038.5[facility] TqtwfpoCGGXUOZQVA9613-54-62 07:33:00 13.0[facility] KdtvvpoQNIEPTZYOH4635-41-84 07:33:0033.9[facility] HermannHEMATOLOGY 2016-07-13 07:33:00 Test Item Value Reference Range Interpretation Comments MCH (test code = MCH) 28.8 pg 27.0-31.0 Memorial YenirodRRPFZPHETG0489-78-18 07:33:0014.0[facility] HermannCARDIAC ENZYMES 2016-07-12 22:45:00<0.010[facility] HermannCARDIAC OSOREOD3665-33-16 22:45:0033 Memorial DbxjajkPAQNPWOOI8592-49-67 22:45:0035[facility] HermannHEMATOLOGY 2016-07-12 06:39:31503Atmuqlca LkxnnrtDYYWFRNQUZ9684-85-72 06:39:0013.5[facility] FphelmzULPLCEBBFM8708-15-35 06:39:009.3[facility]orial TsprvlwZNCXHSYVTF3225-04-90 06:39:004.46[facility] JhjvddlVNZZKZHHOL1604-39-21 06:39:0012.6[facility] [place] LCKMWDPTAV5357-69-86 06:39:0037.4[facility] XvcqosjYIGFDXCHDC1585-49-91 06:39:00 83.9[facility] AmjhvviQNTUILFTMO2210-76-65 06:39:009.4[facility] HermannHEMATOLOGY 2016-07-12 06:39:00 Test Item Value Reference Range Interpretation Comments MCH (test code = MCH) 28.3 pg 27.0-31.0 [facility] JephzvcRCNMANYXLQ1160-41-96 06:39:0033.8[facility] HermannHEMATOLOGY 2016-07-12 06:39:00 Test Item Value Reference Range Interpretation Comments PTT (test code = PTT) 33.7 s 22.9-35.8 Memorial IkvpynfBISXOBJNBD9618-33-05 06:39:001.02[facility] HermannHEMATOLOGY 2016-07-12 06:39:00 Test Item Value Reference Range Interpretation Comments PT (test code = PT) 13.6 s 12.0-14.7 Memorial ZjyyxwoHPRZZXZNTY9485-64-99 06:39:005.5[facility] HermannHEMATOLOGY 2016-07-12 06:39:000.6[facility] LeuwmfaYQXCEJOVFL3823-83-12 06:39:003.0[facility] QowijszNQLFOFCRGE3208-87-88 06:39:000.1[facility] DepkbuqLYUPUNZLLD8308-28-19 06:39:000.1[facility] EgqzhhkMLRHEEZZEG3455-06-89 06:39:000.9[facility] [place] ECFOUKEFIP3878-04-92 06:39:0058.7[facility] SpvgzrwBPHGYPDUTZ2415-74-91 06:39:00 32.5[facility] PuvcsxjHBRICJDOQC7815-56-10 06:39:006.5[facility] HermannHEMATOLOGY 2016-07-12 06:39:001.4[facility] HermannURINE AND NFFRS3140-15-11 06:39:001 [facility]ann[facility] AND XJUMN5070-94-71 06:39:00Not Indicated *NA*(07/12/16 12:39 AM)[facility] INBZO3690-69-83 06:39:00Clear (07/12/16 12:39 AM)[facility] AND RMXEA9555-24-29 06:39:001.011[facility]ann[facility] AND ROSGN2497-68-80 06:39:006.5[facility]ann[facility] AND CFUQG9918-35-62 06:39:00Yellow *NA*(07/12/16 12:39 AM)[facility] XGMIA8251-52-95 06:39:00Negative (07/12/16 12:39 AM)[facility] MHQRA2766-54-04 06:39:00Negative *NA*(07/12/16 12:39 AM)[facility] AND STOOL [...] AM)[facility] HermannDRUG SCREEN 2016-07-12 06:39:00Negative *NA*(07/12/16 12:39 AM)[facility] HermannBLOOD BANK JYNBMXS8033-23-76 05:50:00Negative (07/11/16 11:50 PM)[facility] HermannCHEM PANEL 2016-07-12 03:20:0093[facility] HermannCHEM KSZAB6116-13-47 03:20:0015.5[facility] HermannCHEM ZBNRQ0773-46-61 03:20:93749Gxvnxtyf HermannCHEM HTFYV9251-43-86 03:20:72363Eoleblwh HermannCHEM VXACI2421-75-51 03:20:000.75[facility] HermannCHEM OUVNP1432-79-86 03:20:006[facility] HermannCHEM YOTUZ6218-50-36 03:20:008.8 [facility] HermannCHEM CGDUP6228-45-71 03:20:0026[facility] HermannCHEM PANEL 2016-07-12 03:20:003.5[facility] HermannCHEM BNBCD1775-68-72 03:20:91933Cfibvnox [place]
--- NOTE | 2021-01-01 00:23 | EDPHYS ---
Physician Documentation [facility] Name: Shanna Estrella Age: 25 yrs Sex: Female : 1995 Arrival Date: 12/31/2020 Time: 23:54 Bed 20 Private MD: ED Physician Eben Latif HPI: 01/01 00:21 This 25 yrs old Female presents to ER via Ambulatory with complaints of BUMP pm1 ON CHEST. 00:21 The patient's rash thought to be caused by an unknown cause. The rash is located on the pm1 mid-sternal area. The rash can be described as raised. Onset: The symptoms/episode began/occurred 3 day(s) ago. Associated signs and symptoms: Pertinent negatives: None. Severity of symptoms: in the emergency department the symptoms are unchanged. Treatment given at home: None. The patient has not experienced similar symptoms in the past. The patient has not recently seen a physician. 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 - Social history:: Smoking status: unknown. ROS: 00:21 Constitutional: Negative for fever, chills, and weight loss, Cardiovascular: Negative pm1 for chest pain, palpitations, and edema, Respiratory: Negative for shortness of breath, cough, wheezing, and pleuritic chest pain, Abdomen/GI: Negative for abdominal pain, nausea, vomiting, diarrhea, and constipation, MS/Extremity: Negative for injury and deformity. 00:21 Skin: Positive for rash, of the mid-sternal area. 00:21 All other systems are negative. Exam: 00:21 Constitutional: This is a well developed, well nourished patient who is awake, alert, pm1 and in no acute distress. Head/Face: Normocephalic, atraumatic. 00:21 MS/ Extremity: Pulses equal, no cyanosis. Neurovascular intact. Full, normal range of motion. 00:21 Cardiovascular: Rate: normal, Rhythm: regular, Pulses: no pulse deficits are appreciated. 00:21 Respiratory: Exam negative for acute changes, respiratory distress, shortness of breath. 00:21 Skin: Appearance: normal except for affected area, rash can be described as raised, No abscess present or surrounding cellulitis, on the mid-sternal area. 00:21 Neuro: Exam negative for acute changes, Orientation: is normal, Mentation: is normal, Motor: is normal, moves all fours. 00:21 Chest/axilla: Inspection: Nick Lopez present as medical scribe. pm1 Vital Signs: 00:06 BP 124 / 85; Pulse 102; Resp 18; Temp 98.2; Pulse Ox 97% ; Weight 72.57 kg; Height 5 wh ft. 0 in. (152.40 cm); 00:06 Body Mass Index 31.25 (72.57 kg, 152.40 cm) wh MDM: 00:14 Patient medically screened. pm1 00:21 Data reviewed: vital signs. Data interpreted: Pulse oximetry: on room air is 97 %. pm1 Interpretation: normal. Counseling: I had a detailed discussion with the patient and/or guardian regarding: the historical points, exam findings, and any diagnostic results supporting the discharge/admit diagnosis, the need for outpatient follow up, to return to the emergency department if symptoms worsen or persist or if there are any questions or concerns that arise at home. 00:37 ED course: Patient refused to take test to help me determine appropriate pm1 antibiotic therapy because she believes the she is "cryptically regardless of what the test shows. Your tests always show that I am not ." Ideally I would like to give the patient bactrim and I told her that but she does not want any medications that are unsafe for . Patient is PCN allergic. Only option at this point is topical and I will prescribe Bactroban and instructed the patient to observe the area and return to the ER if worsens. Administered Medications: No medications were administered Disposition: 01:32 Co-signature as Attending Physician, Eben Latif MD. pksam Disposition: 01/01/21 00:22 Discharged to Home. Impression: Rash and other nonspecific skin eruption. - Condition is Stable. - Discharge Instructions: Rash. - Prescriptions for Bactroban 2 % Topical Ointment - Apply to affected area 1 application by TOPICAL route every 12 hours; 30 gram. - Medication Reconciliation Form, Thank You Letter, Antibiotic Education, Prescription Opioid Use form. - Follow up: Emergency Department; When: As needed; Reason: Worsening of condition. Follow up: Private Physician; When: 2 - 3 days; Reason: Recheck today's complaints, Continuance of care, Re-evaluation by your physician. - Problem is new. - Symptoms have improved. Signatures: Eben Latif MD MD pkl Marinas, Patrick, AUTOMOBI[employer] TRA[employer] COUNSELOR [employer] COUNSELOR pm1 Marlena Snyder RN RN wh Corrections: (The following items were deleted from the chart) 00:36 00:22 01/01/2021 00:22 Discharged to Home. Impression: Rash and other nonspecific skin wh eruption. Condition is Stable. Forms are Medication Reconciliation Form, Thank You Letter, Antibiotic Education, Prescription Opioid Use. Follow up: Emergency Department; When: As needed; Reason: Worsening of condition. Follow up: Private Physician; When: 2 - 3 days; Reason: Recheck today's complaints, Continuance of care, Re-evaluation by your physician. Problem is new. Symptoms have improved. pm1
--- NOTE | 2021-01-01 00:23 | ER ---
Nurse's Notes [facility] Name: Shanna Estrella Age: 25 yrs Sex: Female : 1995 Arrival Date: 12/31/2020 Time: 23:54 Bed 20 Private MD: Diagnosis: Rash and other nonspecific skin eruption Presentation: 01/01 00:04 Chief complaint: Patient states: Just wanted the bump on her chest to be checked. Coronavirus screen: Client denies travel out of the [place] in the last 14 days. At this time, the client does not indicate any symptoms associated with coronavirus-19. Ebola Screen: Patient negative for fever greater than or equal to 101.5 degrees Fahrenheit, and additional compatible Ebola Virus Disease symptoms Patient denies exposure to infectious person. Initial Sepsis Screen: Does the patient meet any 2 criteria? No. Patient's initial sepsis screen is negative. Does the patient have a suspected source of infection? No. Patient's initial sepsis screen is negative. Risk Assessment: Do you want to hurt yourself or someone else? Patient reports no desire to harm self or others. Onset of symptoms was January 01, 2021. 00:04 Method Of Arrival: Ambulatory 00:04 Acuity: ELI 5 Triage Assessment: 00:08 General: Behavior is calm, cooperative. 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 - Social history:: Smoking status: unknown. Screenin:05 Abuse screen: Denies threats or abuse. Denies injuries from another. Nutritional screening: No deficits noted. Tuberculosis screening: No symptoms or risk factors identified. Fall Risk None identified. Assessment: 00:06 General: Appears in no apparent distress. Pain: Denies pain. Neuro: Level of Consciousness is awake, alert, obeys commands, Oriented to person, place, time, situation. Cardiovascular: Capillary refill < 3 seconds. Respiratory: Airway is patent Respiratory effort is even, unlabored, Respiratory pattern is regular, symmetrical. GI: Abdomen is non-distended. : No signs and/or symptoms were reported regarding the genitourinary system. EENT: No signs and/or symptoms were reported regarding the EENT system. Derm: Skin is intact, is healthy with good turgor, Skin is pink, warm \T\ dry. normal. Musculoskeletal: Circulation, motion, and sensation intact. Vital Signs: 00:06 BP 124 / 85; Pulse 102; Resp 18; Temp 98.2; Pulse Ox 97% ; Weight 72.57 kg; Height 5 ft. 0 in. (152.40 cm); 00:06 Body Mass Index 31.25 (72.57 kg, 152.40 cm) ED Course: 12/31 23:54 Patient arrived in ED. cf2 01/01 00:03 Marlena Snyder RN is Primary Nurse. 00:04 Triage completed. 00:07 Patient has correct armband on for positive identification. Bed in low position. Call light in reach. Side rails up X 1. Pulse ox on. NIBP on. 00:07 Arm band placed on right wrist. 00:12 Tho Ridley NP is PHCP. pm1 00:12 Eben Latif MD is Attending Physician. pm1 00:21 chaperoned Tho Ridley NP during breast exam. mw2 00:35 No provider procedures requiring assistance completed. Patient did not have IV access during this emergency room visit. Administered Medications: No medications were administered Outcome: 00:22 Discharge ordered by . pm1 00:35 Discharged to home ambulatory, with family. 00:35 Condition: stable 00:35 Discharge instructions given to patient, Instructed on discharge instructions, follow up and referral plans. medication usage, POC Demonstrated understanding of instructions, follow-up care, medications, POC Prescriptions given X 1. 00:36 Patient left the ED. Signatures: Tho Ridley NP SOAP PRESS FEEDER pm1 Marlena Snyedr, RN RN Charline Phelan mw2 Lars Wolf cf2
[2021-01-01 01:27] VITALS: BP 124/85; TEMP 98.2; O2SAT 97
== END 2021-01-01 00:36 | disposition home or self-care (01) ==
LOC: ER 23:47
DX: R21 Rash and other nonspecific skin eruption (principal); Z88.0 Allergy status to penicillin; Z88.1 Allergy status to other antibiotic agents; Z88.8 Allergy status to other drugs, medicaments and biological substances; Z91.048 Other nonmedicinal substance allergy status
CPT/HCPCS: 99283

== ENCOUNTER 2021-06-15 06:01 | Emergency (ER) | payer SELFPAY ==
[2021-06-15 06:30] LABS: Urine Blood Trace-lysed (Negative); Urine Glucose Negative (Negative); Urine Protein 2+ (Negative); Urine Specific Gravity >=1.030 (1.005-1.030)
[2021-06-15] MEDS ORDERED: ONDANSETRON 4 MG/2 ML VIAL ONE (06:51)
[2021-06-15] MEDS ORDERED: NA CHLORIDE 0.9% 1,000 ML ONE (06:51)
[2021-06-15 07:02] LABS: Basophils % 0.2 % (0-1.3); Hematocrit 44.1 % (36.0-45.0); Lymphocytes % 10.1 % (15.3-44.8); MPV 7.7 fL (7.6-11.3); RBC Red Blood Cell Count 5.17 M/uL (3.86-4.86)
[2021-06-15 07:18] LABS: ALT/SGPT 30 U/L (12-78); AST/SGOT 14 U/L (15-37); Albumin 3.7 g/dL (3.4-5.0); Alkaline Phosphatase 89 U/L (45-117); BUN Blood Urea Nitrogen 12 mg/dL (7-18); Bicarbonate 25 mmol/L (21-32); Bilirubin Direct < 0.1 mg/dL (0-0.2); Bilirubin Total 0.3 mg/dL (0.2-1.0); Glucose Level 127 mg/dL (74-106); Lipase 54 U/L (73-393); Potassium 3.8 mmol/L (3.5-5.1); Protein, Total 8.1 g/dL (6.4-8.2); Sodium Level 139 mmol/L (136-145)
--- NOTE | 2021-06-15 08:52 | RAD REPORT ---
EXAM DESCRIPTION: CT - Abdomen Pelvis W Contrast - 06/15/2021 8:19 am CLINICAL HISTORY: lower abdominal pain, vomiting, diarrhea COMPARISON: Abdomen Pelvis W Contrast dated 09/11/2017; Chest Single View dated 10/05/2020; Head Bra in Wo Cont dated 08/06/2020 TECHNIQUE: Biphasic, helical CT imaging of the abdomen and pelvis was performed following 100 ml non -ionic IV contrast. No oral contrast administered. All CT scans are performed using dose optimization technique as appropriate and may include automated exposure control or mA/KV adjustment according to patient size. FINDINGS: No suspicious findings in the lung bases. The liver, spleen, and pancreas show no suspicious findings. Gallbladder and biliary tree are also wi thout suspicious finding. Symmetric renal function is seen with no hydronephrosis or suspicious renal mass. No pyelonephritis o r acute parenchymal process. No bladder abnormalities. No adrenal abnormalities. No uterine or ovaria n abnormality seen. A 2.5 cm involuting follicle seen in the left ovary. Food and fluid distended to not grossly dilate the stomach. Slight thickening at the gastric antrum m ay be a peristalsis affect. No antrum or duodenal mass seen as a gastric outlet obstruction. . Mild a ntritis or gastric paresis may be present. No acute small bowel or colon abnormality. No evidence for appendicitis. No free air or pneumatosis. Trace amount of free fluid is present. However, the patient has a ventric uloperitoneal shunt in place. Tubing is curled in the anterior upper abdomen and this would account f or the small quantity of fluid. No hernia, mass or bulky lymphadenopathy. No suspicious bony findings. IMPRESSION: Fluid and food distend the stomach and there is very slight thickening of the gastric an trum parada. This may simply be peristalsis affect. A mild antritis and gastroparesis are possible. No gastric outlet obstruction suspected. Remainder the examination without acute or suspicious finding.
--- NOTE | 2021-06-15 09:12 | EDPHYS ---
Physician Documentation [facility] Name: Shanna Estrella Age: 26 yrs Sex: Female : 1995 Arrival Date: 06/15/2021 Time: 06:04 Bed 19 Private MD: ED Physician Zackery Issa HPI: 06/15 06:21 This 26 yrs old Female presents to ER via Ambulatory with complaints of jmm Diarrhea, Nausea, Dizziness. 06:21 The patient presents to the emergency department with nausea, vomiting, diarrhea, jmm abdominal pain. Onset: The symptoms/episode began/occurred acutely, 1 day(s) ago. Possible causes: unknown. The symptoms are aggravated by nothing. The symptoms are alleviated by nothing. Associated signs and symptoms: Pertinent positives: abdominal pain, diarrhea, vomiting. 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 - Social history:: Smoking status: Patient reports the use of cigarette tobacco products, denies chronic smoking, but will smoke occasionally. ROS: 06:21 Constitutional: Negative for fever, chills, and weight loss, Cardiovascular: Negative jmm for chest pain, palpitations, and edema, Respiratory: Negative for shortness of breath, cough, wheezing, and pleuritic chest pain. 06:21 Abdomen/GI: Positive for abdominal pain, vomiting, diarrhea. 06:21 All other systems are negative. Exam: 06:21 Constitutional: This is a well developed, well nourished patient who is awake, alert, jmm and in no acute distress. Head/Face: atraumatic. Eyes: EOMI, no conjunctival erythema appreciated ENT: Moist Mucus Membranes Neck: Trachea midline, Supple Chest/axilla: Normal chest wall appearance and motion. Cardiovascular: Regular rate and rhythm. No edema appreciated Respiratory: Normal respirations, no respiratory distress appreciated 06:21 Back: Normal ROM Skin: General appearance color normal MS/ Extremity: Moves all extremities, no obvious deformities appreciated, no edema noted to the lower extremities Neuro: Awake and alert, normal gait Psych: Behavior is normal, Mood is normal, Patient is cooperative and pleasant 06:21 Abdomen/GI: Inspection: abdomen appears normal, Bowel sounds: normal, Palpation: soft, mild abdominal tenderness, in the right lower quadrant and left lower quadrant. Vital Signs: 06:16 BP 144 / 94; Pulse 116; Resp 18 S; Temp 98.2(O); Pulse Ox 98% on R/A; Weight 79.38 kg bb (R); Height 5 ft. 0 in. (152.40 cm) (R); Pain 0/10; 07:02 BP 100 / 73; Pulse 91; Resp 20; Pulse Ox 98% on R/A; cc4 08:31 BP 114 / 76; Pulse 98; Resp 18; Temp 98.4; Pulse Ox 99% on R/A; sl2 08:34 BP 108 / 74; Pulse 94; Resp 18; Pulse Ox 100% on R/A; sl2 09:30 BP 113 / 80; Pulse 85; Resp 16; Temp 98.2(O); Pulse Ox 100% on R/A; sl2 06:16 Body Mass Index 34.18 (79.38 kg, 152.40 cm) bb MDM: 06:18 Patient medically screened. [facility] 09:01 Data reviewed: vital signs, nurses notes. Counseling: I had a detailed discussion with [facility] the patient and/or guardian regarding: the historical points, exam findings, and any diagnostic results supporting the discharge/admit diagnosis, the need for outpatient follow up, to return to the emergency department if symptoms worsen or persist or if there are any questions or concerns that arise at home. 09:10 Counseling: I had a detailed discussion with the patient and/or guardian regarding: lab [facility] results, radiology results. ED course: Is alert nontoxic in appearance in the ED. Patient advised follow-up PCP and otherwise given strict return precautions. Patient understood and agrees plan of care.. 06/15 06:20 Order name: Basic Metabolic Panel; Complete Time: 07:19 [facility] 06/15 06:20 Order name: CBC with Diff; Complete Time: 07:09 [facility] 06/15 06:20 Order name: Hepatic Function; Complete Time: 07:19 [facility] 06/15 06:20 Order name: Lipase; Complete Time: 07:19 [facility] 06/15 06:30 Order name: Urine Dipstick-Ancillary; Complete Time: 06:54 EDSD 06/15 06:31 Order name: Urine --Ancillary (enter results) eb 06/15 06:20 Order name: IV Saline Lock; Complete Time: 06:57 [facility] 06/15 06:20 Order name: Labs collected and sent; Complete Time: 06:57 [facility] 06/15 06:20 Order name: Urine Dipstick-Ancillary (obtain specimen); Complete Time: 06:26 [facility] 06/15 06:20 Order name: Urine Test (obtain specimen); Complete Time: 06:26 [facility] 06/15 06:31 Order name: Urine --Ancillary; Complete Time: 06:54 [facility] 06/15 07:20 Order name: CT Abd/Pelvis - IV Contrast Only; Complete Time: 09:01 [facility] Administered Medications: 06:58 Drug: NS 0.9% 1000 ml Route: IV; Rate: 1 bolus; Site: left upper arm; cc4 08:05 Follow up: Response: No adverse reaction; Nausea is decreased; IV Status: Completed sl2 infusion; IV Intake: 1000ml 06:58 Drug: Zofran (Ondansetron) 4 mg Route: IVP; Site: left upper arm; cc4 07:35 Follow up: Response: No adverse reaction; Nausea is decreased sl2 Disposition Summary: 06/15/21 09:11 Discharge Ordered Location: Home [facility] Condition: Stable [facility] Diagnosis - Vomiting [facility] - Diarrhea, unspecified [facility] Followup: [facility] - With: Private Physician - When: 2 - 3 days - Reason: Recheck today's complaints, Continuance of care, Re-evaluation by your physician Discharge Instructions: - Discharge Summary Sheet [facility] - Food Choices to Help Relieve Diarrhea, Adult [facility] Forms: - Medication Reconciliation Form [facility] - Thank You Letter [facility] - Antibiotic Education [facility] - Prescription Opioid Use [facility] Prescriptions: - promethazine 25 mg Oral Tablet - take 1 tablet by ORAL route every 6 hours As needed; 30 tablet; Refills: 0, [facility] Product Selection Permitted Addendum: 06/18/2021 23:22 Co-signature as Attending Physician, Zackery Issa MD. [facility] Signatures: Dispatcher [employer] Pranay Garvin PA PA jmm Ballard, Brenda, RN RN Zackery Lawrence MD MD 7 Gaby Olson RN RN cc4 Yanira Boucher RN 2
--- NOTE | 2021-06-15 09:12 | ER ---
Nurse's Notes [facility] Name: Shanna Estrella Age: 26 yrs Sex: Female : 1995 Arrival Date: 06/15/2021 Time: 06:04 Bed 19 Private MD: Diagnosis: Vomiting;Diarrhea, unspecified Presentation: 06/15 06:16 Chief complaint: Patient states: she drank some really strong coffee yesterday and bb became nauseous she was unable to eat all day then this morning she woke up with nausea, dizziness, sweating and had several episodes of diarrhea. Coronavirus screen: diarrhea, nausea, Client presents with at least one sign or symptom that may indicate coronavirus-19. Standard/surgical mask placed on the client. Ebola Screen: No symptoms or risks identified at this time. Initial Sepsis Screen: Does the patient meet any 2 criteria? No. Patient's initial sepsis screen is negative. Does the patient have a suspected source of infection? No. Patient's initial sepsis screen is negative. Risk Assessment: Do you want to hurt yourself or someone else? Patient reports no desire to harm self or others. Onset of symptoms was June 14, 2021. 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 - Social history:: Smoking status: Patient reports the use of cigarette tobacco products, denies chronic smoking, but will smoke occasionally. Screenin:25 Abuse screen: Denies threats or abuse. Nutritional screening: No deficits noted. cc4 Tuberculosis screening: No symptoms or risk factors identified. Fall Risk None identified. Assessment: 06:25 General: Appears uncomfortable, Behavior is calm, cooperative. General: at present cc4 time. Reports earlier abdominal cramping with diarrhea that started \\T\\ 0530 this am with dizziness; reports drinking "strong coffee" yesterday; c/o nausea; no vomiting voiced or noted; attempting to start IV x 3 attempts, zuleika. well.. Pain: Denies pain. Neuro: No deficits noted. Level of Consciousness is awake, alert, obeys commands. Cardiovascular: Heart tones S1 S2. Respiratory: Airway is patent Breath sounds are clear bilaterally. GI: Abdomen is obese, Bowel sounds present X 4 quads. Abd is soft and non tender. : No signs and/or symptoms were reported regarding the genitourinary system. EENT: No signs and/or symptoms were reported regarding the EENT system. Derm: No deficits noted. Skin is intact. Musculoskeletal: No deficits noted. Capillary refill Range of motion: intact in all extremities. 06:58 Reassessment: Patient appears in no apparent distress at this time. IV NS hung to # 22 cc4 g diffusics left upper arm \\T\\ infusing \\T\\ open rate with no s/sx's of infiltration, zuleika. well; Zofran 4 mg given slow IVP; NAD; report given to BANG Doyle. 07:35 Reassessment: Patient verbalized decreased nausea at this time, will continue to 2 re-assess and monitor. 08:26 Reassessment: CAT scan completed - patient has been returned to the unit. sl2 Vital Signs: 06:16 BP 144 / 94; Pulse 116; Resp 18 S; Temp 98.2(O); Pulse Ox 98% on R/A; Weight 79.38 kg bb (R); Height 5 ft. 0 in. (152.40 cm) (R); Pain 0/10; 07:02 BP 100 / 73; Pulse 91; Resp 20; Pulse Ox 98% on R/A; cc4 08:31 BP 114 / 76; Pulse 98; Resp 18; Temp 98.4; Pulse Ox 99% on R/A; sl2 08:34 BP 108 / 74; Pulse 94; Resp 18; Pulse Ox 100% on R/A; sl2 09:30 BP 113 / 80; Pulse 85; Resp 16; Temp 98.2(O); Pulse Ox 100% on R/A; sl2 06:16 Body Mass Index 34.18 (79.38 kg, 152.40 cm) bb ED Course: 06:04 Patient arrived in ED. bp1 06:12 Pranay Daly PA is PHCP. [facility] 06:12 Zackery Issa MD is Attending Physician. [facility] 06:18 Triage completed. bb 06:18 Arm band placed on Patient placed in an exam room, on a stretcher, on pulse oximetry. bb Family accompanied patient. 06:23 Gaby Olson, RN is Primary Nurse. cc4 06:25 Patient has correct armband on for positive identification. Bed in low position. Call cc4 light in reach. Side rails up X 1. 06:56 Inserted saline lock: 22 gauge in left upper arm, using aseptic technique. Blood fu collected. 06:58 Urine --Ancillary (enter results) Sent. cc4 06:59 Basic Metabolic Panel Sent. cc4 06:59 CBC with Diff Sent. cc4 06:59 Hepatic Function Sent. cc4 06:59 Lipase Sent. cc4 08:[address] via stretcher. sl2 08:19 CT Abd/Pelvis - IV Contrast Only In Process Unspecified. EDMS 08:[address] from [address]. sl2 09:48 No provider procedures requiring assistance completed. IV discontinued, intact. sl2 Administered Medications: 06:58 Drug: NS 0.9% 1000 ml Route: IV; Rate: 1 bolus; Site: left upper arm; cc4 08:05 Follow up: Response: No adverse reaction; Nausea is decreased; IV Status: Completed sl2 infusion; IV Intake: 1000ml 06:58 Drug: Zofran (Ondansetron) 4 mg Route: IVP; Site: left upper arm; cc4 07:35 Follow up: Response: No adverse reaction; Nausea is decreased sl2 Intake: 08:05 IV: 1000ml; Total: 1000ml. sl2 Outcome: 09:11 Discharge ordered by . [facility] 09:48 Discharged to home ambulatory, with family. sl2 09:48 Condition: stable 09:48 Discharge instructions given to patient, family, Instructed on discharge instructions, follow up and referral plans. no drinking with medication, medication usage, Demonstrated understanding of instructions, follow-up care, wound care, Prescriptions given X 1. 09:49 Patient left the ED. sl2 Signatures: Dispatcher [employer] EDIN Pranay Daly PA PA jmm Ballard, Brenda, BANG RN bryanna Long Chadd, RN Jacqueline Eastman Christie, RN RN cc4 Yanira Boucher RN RN sl2 Corrections: (The following items were deleted from the chart) 07:09 06:11 BP 144 / 94; Pulse 114bpm; Resp 22bpm; Pulse Ox 99% RA; Temp 98.2F; cc4 cc4
[2021-06-15 10:00] VITALS: O2SAT 100
[2021-06-15 10:01] VITALS: BP 113/80; TEMP 98.2
== END 2021-06-15 09:49 | disposition home or self-care (01) ==
LOC: ER 06:01
DX: R19.7 Diarrhea, unspecified (principal); R10.30 Lower abdominal pain, unspecified; F17.210 Nicotine dependence, cigarettes, uncomplicated; Z88.0 Allergy status to penicillin; Z88.1 Allergy status to other antibiotic agents; Z88.8 Allergy status to other drugs, medicaments and biological substances; Z91.048 Other nonmedicinal substance allergy status
CPT/HCPCS: 36415; 74177; 80048; 80076; 81003; 81025; 83690; 85025; 96361; 96374; 99284; J2405; J7030; Q9967

== ENCOUNTER 2022-06-11 13:39 | Emergency (ER) | payer SELFPAY ==
--- OUTSIDE RECORDS SUMMARY | 2022-06-11 13:46 | XMS REPORT | Continuity of Care Document ---
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 CO2 (test code = CO2) 23 24-32 [place] [id number] 07:33:00 Test Item Value Reference Range Interpretation Comments Chloride Lvl (test code = Chloride Lvl) 108 95-109 [place] [id number] 07:33:00 Test Item Value Reference Range Interpretation Comments Creatinine Lvl (test code = Creatinine 0.61 0.50-1.40 Lvl) [facility]2016-11-27 07:33:00 Test Item Value Reference Range Interpretation Comments Sodium Lvl (test code = Sodium Lvl) 142 135-145 [place] [id number] 07:33:00 Test Item Value Reference Range Interpretation Comments BUN (test code = BUN) 7 7-22 [facility]2016-11-27 07:33:00 Test Item Value Reference Range Interpretation Comments Potassium Lvl (test code = Potassium 3.9 3.5-5.1 Lvl) [facility]2016-11-27 07:33:00 Test Item Value Reference Range Interpretation Comments Glucose Lvl (test code = Glucose Lvl) 88 70-99 [facility]2016-11-27 07:33:00 Test Item Value Reference Range Interpretation Comments AGAP (test code = AGAP) 14.9 10.0-20.0 [facility] CenterQbhgvghTUAWXPKYWM2384-42-99 07:33:00 Test Item Value Reference Range Interpretation Comments Lymphocytes (test code = Lymphocytes) 37.9 20.0-40.0 [facility] CenterByxwqduLLUKZAZHMA7322-99-82 07:33:00 Test Item Value Reference Range Interpretation Comments Segs (test code = Segs) 52.1 45.0-75.0 [facility] CenterYuoifbmMHKBKNLHEB1099-61-52 07:33:00 Test Item Value Reference Range Interpretation Comments Monocytes (test code = Monocytes) 7.3 2.0-12.0 [place] [id number] 07:33:00 Test Item Value Reference Range Interpretation Comments Basophils (test code = 0.8 See_Comment [Aut omated message] The Basophils) system which ge nerated this result tra nsmitted reference range : <=1.0. The reference r thais was not used to int erpret this result as normal/abnormal . [facility] CenterKgqbubvAYCCFIWLZY5611-67-83 07:33:00 Test Item Value Reference Range Interpretation Comments Eosinophils (test code = 1.9 See_Comment [A utomated message] The Eosinophils) system which ge nerated this result tra nsmitted reference range : <=4.0. The reference r thais was not used to int erpret this result as normal/abnormal . [facility] CenterRcbfrdfOVDGRGADEO9545-50-91 07:33:00 Test Item Value Reference Range Interpretation Comments Segs-Bands # (test code = Segs-Bands #) 3.8 1.5-8.1 [facility] CenterOvffknbILCOCMTDJX3206-98-09 07:33:00 Test Item Value Reference Range Interpretation Comments Eosinophils # (test code 0.1 See_Comment [A utomated message] The = Eosinophils #) system whic h generated this result tra nsmitted reference range : <=0.5. The reference r thais was not used to int erpret this result as normal/abnormal . [facility] CenterLwprcpbXNZVFGYCLB1894-57-04 07:33:00 Test Item Value Reference Range Interpretation Comments Monocytes # (test code 0.5 See_Comment [Aut omated message] The = Monocytes #) system which generated this result tra nsmitted reference range : <=0.8. The reference r thais was not used to int erpret this result as normal/abnormal . [facility] CenterFlvfvjeTYZGBJCBMT4068-92-58 07:33:00 Test Item Value Reference Range Interpretation Comments Lymphocytes # (test code = Lymphocytes 2.7 1.0-5.5 #) [facility] CenterOpleaekIRWHYULKZI2621-00-65 07:33:00 Test Item Value Reference Range Interpretation Comments Basophils # (test code 0.1 See_Comment [Aut omated message] The = Basophils #) system which generated this result tra nsmitted reference range : <=0.2. The reference r thais was not used to int erpret this result as normal/abnormal . [facility] CenterAevxrqaCPHSIFHSOE9744-56-33 07:33:00 Test Item Value Reference Range Interpretation Comments RBC (test code = RBC) 4.53 4.20-5.40 [facility]FhjhtxsSLLFUYAOHY4722-93-43 07:33:00 Test Item Value Reference Range Interpretation Comments WBC (test code = WBC) 7.2 3.7-10.4 [facility] TexasYgerupnSBUUMFBPBR5380-66-38 07:33:00 Test Item Value Reference Range Interpretation Comments Hct (test code = Hct) 38.5 36.0-48.0 [facility]AzbceybIAAVHIKEHW7928-44-61 07:33:00 Test Item Value Reference Range Interpretation Comments Hgb (test code = Hgb) 13.0 12.0-16.0 [facility] TexasAqnvoxsPUGIUZAZUI7812-06-55 07:33:00 Test Item Value Reference Range Interpretation Comments MCHC (test code = MCHC) 33.9 32.0-36.0 [facility] TexasTaqdmjwQNVLFEEYHS0632-59-55 07:33:00 Test Item Value Reference Range Interpretation Comments MCH (test code = MCH) 28.8 pg 27.0-31.0 [facility] CenterVofijahGNAEUQJATU3308-33-92 07:33:00 Test Item Value Reference Range Interpretation Comments RDW (test code = RDW) 14.0 11.5-14.5 [facility] TexasCARDIAC [id number] 22:45:00 Test Item Value Reference Range Interpretation Comments Troponin-T (test code no gt See_Comment [Auto mated message] The = Troponin-T) system which g enerated this result transmit gerri reference range : <=0.100. The reference r thais was not used to interpr et this result as maria de jesus l/abnormal. [facility] CenterannCARDIAC PQJSTVS0801-57-15 22:45:00 Test Item Value Reference Range Interpretation Comments Total CK (test code = Total CK) 33 12-191 [facility] TexasIxnxssxSEDUVVXMQ8950-21-46 22:45:00 Test Item Value Reference Range Interpretation Comments Myoglobin (test code = Myoglobin) 35 25-72 [facility] CenterannDRUG EVDSLX3297-16-91 06:39:00 Test Item Value Reference Range Interpretation Comments U Phencyc Scr (test Negative *NA*(07/12/16 code = U Phencyc Scr) 12:39 AM) [facility] HermannDRUG [id number] 06:39:00 Test Item Value Reference Range Interpretation Comments U Opiate Scr (test Negative *NA*(07/12/16 code = U Opiate Scr) 12:39 AM) [facility] [id number] 06:39:00 Test Item Value Reference Range Interpretation Comments U Propoxyph Scr (test Negative *NA*(07/12/16 code = U Propoxyph Scr) 12:39 AM) [facility] [id number] 06:39:00 Test Item Value Reference Range Interpretation Comments U Methadone Scr (test Negative *NA*(07/12/16 code = U Methadone Scr) 12:39 AM) [facility] [id number] 06:39:00 Test Item Value Reference Range Interpretation Comments UDS Note (test code = See Note *NA*(07/12/16 UDS Note) 12:39 AM) [facility] [id number] 06:39:00 Test Item Value Reference Range Interpretation Comments U Benzodia Scr (test Negative *NA*(07/12/16 code = U Benzodia Scr) 12:39 AM) [facility] [id number] 06:39:00 Test Item Value Reference Range Interpretation Comments U Amph Scr (test code Negative *NA*(07/12/16 = U Amph Scr) 12:39 AM) [facility] [id number] 06:39:00 Test Item Value Reference Range Interpretation Comments U Cannab Scr (test Negative *NA*(07/12/16 code = U Cannab Scr) 12:39 AM) [facility]ann[facility] [id number] 06:39:00 Test Item Value Reference Range Interpretation Comments U Cocaine Scr (test Negative *NA*(07/12/16 code = U Cocaine Scr) 12:39 AM) [facility] [id number] 06:39:00 Test Item Value Reference Range Interpretation Comments U Tori Scr (test code Negative *NA*(07/12/16 = U Tori Scr) 12:39 AM) [facility] TexasHzbipylYOMDGFUZAA6898-80-72 06:39:00 Test Item Value Reference Range Interpretation Comments Platelet (test code = Platelet) 306 133-450 [facility] TexasDnauzakIXONJAHUUX8245-62-88 06:39:00 Test Item Value Reference Range Interpretation Comments RDW (test code = RDW) 13.5 11.5-14.5 [facility] CenterProdncvNVVEYSHXOU8398-54-78 06:39:00 Test Item Value Reference Range Interpretation Comments MPV (test code = MPV) 9.3 7.4-10.4 [facility] CenterMlfrhlfPMHKGIVRUL6249-72-41 06:39:00 Test Item Value Reference Range Interpretation Comments RBC (test code = RBC) 4.46 4.20-5.40 [facility] CenterDqcggciWMXNAAWEHK0404-11-42 06:39:00 Test Item Value Reference Range Interpretation Comments Hgb (test code = Hgb) 12.6 12.0-16.0 [facility] CenterHxgkkniLPCZLBUJDN7973-55-99 06:39:00 Test Item Value Reference Range Interpretation Comments Hct (test code = Hct) 37.4 36.0-48.0 [facility] CenterOfumravSXBTJHTWTJ5870-11-07 06:39:00 Test Item Value Reference Range Interpretation Comments MCV (test code = MCV) 83.9 80.0-98.0 [facility] CenterOlezrtsINMXNNJABP8800-35-95 06:39:00 Test Item Value Reference Range Interpretation Comments WBC (test code = WBC) 9.4 3.7-10.4 [facility] CenterOwgvjweUNIWWQXMUS6111-66-70 06:39:00 Test Item Value Reference Range Interpretation Comments MCH (test code = MCH) 28.3 pg 27.0-31.0 [facility] CenterLqjasdxFIWRXNXZFT9933-08-36 06:39:00 Test Item Value Reference Range Interpretation Comments MCHC (test code = MCHC) 33.8 32.0-36.0 [facility] CenterHhxnletWTJLCUHNYO3021-97-72 06:39:00 Test Item Value Reference Range Interpretation Comments PTT (test code = PTT) 33.7 s 22.9-35.8 [facility] CenterBntmunpFIBSMQSHKZ6972-13-46 06:39:00 Test Item Value Reference Range Interpretation Comments INR (test code = INR) 1.02 0.85-1.17 [facility] CenterSfxkfcqAZGLCTUNNY7343-43-97 06:39:00 Test Item Value Reference Range Interpretation Comments PT (test code = PT) 13.6 s 12.0-14.7 [facility] CenterHuxuvltXIHWIWSYMF2388-31-09 06:39:00 Test Item Value Reference Range Interpretation Comments Segs-Bands # (test code = Segs-Bands #) 5.5 1.5-8.1 [facility] CenterUqtbithTTMHLXMXXU3088-53-23 06:39:00 Test Item Value Reference Range Interpretation Comments Monocytes # (test code 0.6 See_Comment [Aut omated message] The = Monocytes #) system which generated this result tra nsmitted reference range : <=0.8. The reference r thais was not used to int erpret this result as normal/abnormal . [facility] CenterVrkbgsdJPDQCLESJG8979-67-79 06:39:00 Test Item Value Reference Range Interpretation Comments Lymphocytes # (test code = Lymphocytes 3.0 1.0-5.5 #) [facility] CenterJrgunybDYKDDFLTMA2737-71-07 06:39:00 Test Item Value Reference Range Interpretation Comments Basophils # (test code 0.1 See_Comment [Aut omated message] The = Basophils #) system which generated this result tra nsmitted reference range : <=0.2. The reference r thais was not used to int erpret this result as normal/abnormal . [facility] CenterEtacqlvXKESNPVVGU2489-65-70 06:39:00 Test Item Value Reference Range Interpretation Comments Eosinophils # (test code 0.1 See_Comment [A utomated message] The = Eosinophils #) system whic h generated this result tra nsmitted reference range : <=0.5. The reference r thais was not used to int erpret this result as normal/abnormal . [facility] CenterRlemyzkFBSRFTBVET1323-75-57 06:39:00 Test Item Value Reference Range Interpretation Comments Basophils (test code = 0.9 See_Comment [Aut omated message] The Basophils) system which ge nerated this result tra nsmitted reference range : <=1.0. The reference r thais was not used to int erpret this result as normal/abnormal . [facility] CenterJvlsedjXVQNFONUIC2345-48-59 06:39:00 Test Item Value Reference Range Interpretation Comments Segs (test code = Segs) 58.7 45.0-75.0 [facility] CenterFuscbpwETYULJORXS3796-62-50 06:39:00 Test Item Value Reference Range Interpretation Comments Lymphocytes (test code = Lymphocytes) 32.5 20.0-40.0 [facility] CenterYpqalqmIZIVTBHZON3895-06-52 06:39:00 Test Item Value Reference Range Interpretation Comments Monocytes (test code = Monocytes) 6.5 2.0-12.0 [facility] CenterNclhtcmYWBKQGXGZJ7990-86-68 06:39:00 Test Item Value Reference Range Interpretation Comments Eosinophils (test code = 1.4 See_Comment [A utomated message] The Eosinophils) system which ge nerated this result tra nsmitted reference range : <=4.0. The reference r thais was not used to int erpret this result as normal/abnormal . [facility] [id number] 06:39:00 Test Item Value Reference Range Interpretation Comments UA WBC (test code = 1 See_Comment [Automa gerri message] The UA WBC) system which ge nerated this result transmit gerri reference range : <=5. The reference range was not used to interpr et this result as maria de jesus l/abnormal. [facility] AND [id number] 06:39:00 Test Item Value Reference Range Interpretation Comments Micro? (test code = Not Indicated Micro?) *NA*(07/12/16 12:39 AM) [facility] AND [id number] 06:39:00 Test Item Value Reference Range Interpretation Comments UA Urobilinogen (test code = UA <=1.0 mg/dL 0.1-1.0 Urobilinogen) [facility] AND [id number] 06:39:00 Test Item Value Reference Range Interpretation Comments UA Protein (test code = UA Negative mg/dL Protein) [facility] AND [id number] 06:39:00 Test Item Value Reference Range Interpretation Comments UA Glucose (test code = UA Negative mg/dL Glucose) [facility] AND [id number] 06:39:00 Test Item Value Reference Range Interpretation Comments UA Turbidity (test code = Clear (07/12/16 UA Turbidity) 12:39 AM) [facility] AND [id number] 06:39:00 Test Item Value Reference Range Interpretation Comments UA Spec Grav (test code = UA Spec Grav) 1.011 [facility] AND [id number] 06:39:00 Test Item Value Reference Range Interpretation Comments UA pH (test code = UA pH) 6.5 5.0-8.0 [facility] AND [id number] 06:39:00 Test Item Value Reference Range Interpretation Comments UA Color (test code = Yellow *NA*(07/12/16 UA Color) 12:39 AM) [facility] AND [id number] 06:39:00 Test Item Value Reference Range Interpretation Comments UA Sq Epi (test code = UA Sq Moderate /LPF Epi) [facility] AND [id number] 06:39:00 Test Item Value Reference Range Interpretation Comments UA Leuk Est (test Negative (07/12/16 12:39 code = UA Leuk Est) AM) [facility] AND [id number] 06:39:00 Test Item Value Reference Range Interpretation Comments UA Ketones (test code = UA Negative mg/dL Ketones) [facility] AND [id number] 06:39:00 Test Item Value Reference Range Interpretation Comments UA Bili (test code = Negative *NA*(07/12/16 UA Bili) 12:39 AM) [facility] AND [id number] 06:39:00 Test Item Value Reference Range Interpretation Comments UA Blood (test code = Negative (07/12/16 12:39 UA Blood) AM) [facility] AND [id number] 06:39:00 Test Item Value Reference Range Interpretation Comments UA Nitrite (test code Negative (07/12/16 = UA Nitrite) 12:39 AM) [facility] [id number] 06:39:00 Test Item Value Reference Range Interpretation Comments U Preg (test code = U Negative (07/12/16 12:39 Preg) AM) [facility] Mpayy [facility] [id number] 05:50:00 Test Item Value Reference Range Interpretation Comments Antibody Scrn (test Negative (07/11/16 code = Antibody Scrn) 11:50 PM) [facility] Mpayy [facility] [id number] 05:50:00 Test Item Value Reference Range Interpretation Comments ABO/Rh (test code = ABO/Rh) A POS [facility] [address] [id number] 03:20:00 Test Item Value Reference Range Interpretation Comments Glucose Lvl (test code = Glucose Lvl) 93 70-99 [facility] [address] [id number] 03:20:00 Test Item Value Reference Range Interpretation Comments AGAP (test code = AGAP) 15.5 10.0-20.0 [facility] [address] [id number] 03:20:00 Test Item Value Reference Range Interpretation Comments eGFR (test code = eGFR) 113 [facility]2016-11-26 03:20:00 Test Item Value Reference Range Interpretation Comments Sodium Lvl (test code = Sodium Lvl) 142 135-145 [facility]2016-11-26 03:20:00 Test Item Value Reference Range Interpretation Comments Creatinine Lvl (test code = Creatinine 0.75 0.50-1.40 Lvl) [facility]2016-11-26 03:20:00 Test Item Value Reference Range Interpretation Comments BUN (test code = BUN) 6 7-22 [facility]2016-11-26 03:20:00 Test Item Value Reference Range Interpretation Comments Calcium Lvl (test code = Calcium Lvl) 8.8 8.5-10.5 [facility]2016-11-26 03:20:00 Test Item Value Reference Range Interpretation Comments CO2 (test code = CO2) 26 24-32 [facility]2016-11-26 03:20:00 Test Item Value Reference Range Interpretation Comments Potassium Lvl (test code = Potassium 3.5 3.5-5.1 Lvl) [facility]2016-11-26 03:20:00 Test Item Value Reference Range Interpretation Comments Chloride Lvl (test code = Chloride Lvl) 104 95-109 [facility]
[2022-06-11] MEDS ORDERED: HYDROCODONE/APAP 10/325 TAB ONE (14:05)
[2022-06-11] MEDS ORDERED: KETOROLAC 30 MG/ML INJ ONE (14:05)
--- NOTE | 2022-06-11 14:30 | EDPHYS ---
Physician Documentation [facility] Name: Shanna Estrella Age: 27 yrs Sex: Female : 1995 Arrival Date: 06/11/2022 Time: 13:42 Bed 14 Private MD: ED Physician Yfn Davis HPI: 06/11 15:07 This 27 yrs old Female presents to ER via Ambulatory with complaints of Toothache. kb 15:07 The patient presents with pain. The problem is located in the lower right first molar kb (#30). Onset: The symptoms/episode began/occurred 4 day(s) ago. Duration: The symptoms are continuous. Modifying factors: The symptoms are alleviated by nothing, the symptoms are aggravated by nothing. Associated signs and symptoms: Pertinent positives: pain, Pertinent negatives: fever, inability to eat, nausea, redness in area, swelling. Severity of symptoms: At their worst the symptoms were moderate, in the emergency department the symptoms are unchanged. The patient has experienced similar episodes in the past, a few times. The patient has not recently seen a physician. Pt reports toothache that started 4 days ago. Plans to go to the [facility] for this, but they were closed for lunch when she called. . 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 - Social history:: Smoking status: unknown. ROS: 15:06 Constitutional: Negative for fever, chills, and weight loss. kb 15:06 ENT: Positive for Teeth pain 15:06 All other systems are negative. Exam: 15:06 Constitutional: This is a well developed, well nourished patient who is awake, alert, kb and in no acute distress. Head/Face: Normocephalic, atraumatic. ENT: Moist Mucous membranes Cardiovascular: Regular rate and rhythm with a normal S1 and S2. No gallops, murmurs, or rubs. No pulse deficits. Respiratory: Respirations even and unlabored. No increased work of breathing. Talking in full sentences Skin: Warm, dry with normal turgor. Normal color. MS/ Extremity: Pulses equal, no cyanosis. Neurovascular intact. Full, normal range of motion. Neuro: Awake and alert, GCS 15, oriented to person, place, time, and situation. Moves all extremities. Normal gait. Psych: Awake, alert, with orientation to person, place and time. Behavior, mood, and affect are within normal limits. 15:06 ENT: Dental exam: abscess, is not appreciated, cellulitis, is not appreciated, gum swelling, not appreciated, pain, that is moderate, that is severe, specifically in the lower right first molar (#30). Vital Signs: 13:47 BP 142 / 91; Pulse 125; Resp 19; Temp 98.2; Pulse Ox 100% ; Weight 81.65 kg; Height 5 jl7 ft. (152.40 cm); Pain 10/10; 13:47 Body Mass Index 35.15 (81.65 kg, 152.40 cm) jl7 MDM: 13:48 Patient medically screened. kb 15:06 Data reviewed: vital signs, nurses notes. Data interpreted: Pulse oximetry: on room air kb is 100 %. Interpretation: normal. Counseling: I had a detailed discussion with the patient and/or guardian regarding: the historical points, exam findings, and any diagnostic results supporting the discharge/admit diagnosis, the need for outpatient follow up, a curriculum consultant, to return to the emergency department if symptoms worsen or persist or if there are any questions or concerns that arise at home. 06/11 13:51 Order name: Urine Test (obtain specimen); Complete Time: 14:11 kb Administered Medications: 14:10 Drug: Ketorolac 30 mg Route: IM; Site: right gluteus; ap3 15:08 Follow up: Response: No adverse reaction; Pain is decreased ap3 14:11 Drug: [place] (HYDROcodone-acetaminophen) 10 mg-325 mg 1 tabs Route: PO; ap3 15:08 Follow up: Response: No adverse reaction; Pain is decreased ap3 14:11 Drug: Clindamycin 300 mg Route: PO; ap3 15:08 Follow up: Response: No adverse reaction ap3 Disposition: 14:06 Co-signature as Attending Physician, Yfn Davis DO I was immediately available onsite ms3 in the emergency department for consultation in the care of the patient. Disposition Summary: 06/11/22 14:30 Discharge Ordered Location: Home kb Condition: Stable kb Diagnosis - Other specified disorders of teeth and supporting structures kb Followup: kb - With: Emergency Department - When: As needed - Reason: Worsening of condition Followup: kb - With: Private Physician - When: 2 - 3 days - Reason: Recheck today's complaints, Continuance of care, Re-evaluation by your physician Discharge Instructions: - Discharge Summary Sheet kb - Dental Pain, [id number] kb - Dental Abscess, [id number] kb Forms: - Medication Reconciliation Form kb - Thank You Letter kb - Antibiotic Education kb - Prescription Opioid Use kb Prescriptions: - Clindamycin HCl 300 mg Oral Capsule - take 1 capsule by ORAL route every 6 hours for 10 days; 40 capsule; Refills: 0, kb Product Selection Permitted - Diclofenac Sodium 75 mg Oral tablet,delayed release (DR/EC) - take 1 tablet by ORAL route 2 times per day As needed; 30 tablet; Refills: 0, kb Product Selection Permitted Signatures: Tiffanie Benoit, RONIC PERSONAL LINES SALES EXECUTIVE-Feliz Iniguez RN RN jl7 Annalee Frausto RN RN ap3 Yfn Davis DO DO ms3 Corrections: (The following items were deleted from the chart) 14:30 14:30 Disorder of teeth and supporting structures, unspecified kb kb
--- NOTE | 2022-06-11 14:30 | ER ---
Nurse's Notes [facility] Name: Shanna Estrella Age: 27 yrs Sex: Female : 1995 Arrival Date: 06/11/2022 Time: 13:42 Bed 14 Private MD: Diagnosis: Other specified disorders of teeth and supporting structures Presentation: 06/11 13:47 Chief complaint: Patient states: Right upper tooth pain x 3 days. Coronavirus screen: jl7 At this time, the client does not indicate any symptoms associated with coronavirus-19. Ebola Screen: No symptoms or risks identified at this time. Initial Sepsis Screen: Does the patient meet any 2 criteria? No. Patient's initial sepsis screen is negative. Does the patient have a suspected source of infection? No. Patient's initial sepsis screen is negative. Risk Assessment: Do you want to hurt yourself or someone else? Patient reports no desire to harm self or others. Onset of symptoms was June 08, 2022. 13:47 Method Of Arrival: Ambulatory jl7 13:47 Acuity: ELI 4 jl7 Triage Assessment: 13:48 General: Appears in no apparent distress. uncomfortable, Behavior is agitated, anxious, jl7 restless. Pain: Complains of pain in mouth Pain currently is 10 out of 10 on a pain scale. EENT: Reports pain in mouth. 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 - Social history:: Smoking status: unknown. Screenin:07 Abuse screen: Denies threats or abuse. Nutritional screening: No deficits noted. ap3 Tuberculosis screening: No symptoms or risk factors identified. Fall Risk None identified. Vital Signs: 13:47 BP 142 / 91; Pulse 125; Resp 19; Temp 98.2; Pulse Ox 100% ; Weight 81.65 kg; Height 5 jl7 ft. (152.40 cm); Pain 10/10; 13:47 Body Mass Index 35.15 (81.65 kg, 152.40 cm) 7 ED Course: 13:42 Patient arrived in ED. mr 13:44 Tiffanie Benoit [facility]-C [facility] kb 13:44 Yfn Davis DO is Attending Physician. kb 13:48 Triage completed. jl7 13:48 Arm band placed on right wrist. 7 13:50 Annalee Frausto, BANG is Primary Nurse. ap3 15:07 No provider procedures requiring assistance completed. Patient did not have IV access ap3 during this emergency room visit. 15:08 Patient has correct armband on for positive identification. ap3 Administered Medications: 14:10 Drug: Ketorolac 30 mg Route: IM; Site: right gluteus; ap3 15:08 Follow up: Response: No adverse reaction; Pain is decreased ap3 14:11 Drug: [place] (HYDROcodone-acetaminophen) 10 mg-325 mg 1 tabs Route: PO; ap3 15:08 Follow up: Response: No adverse reaction; Pain is decreased ap3 14:11 Drug: Clindamycin 300 mg Route: PO; ap3 15:08 Follow up: Response: No adverse reaction ap3 Medication: 15:08 VIS not applicable for this client. ap3 Outcome: 14:30 Discharge ordered by . kb 15:07 Discharged to home ambulatory, with family. ap3 15:07 Condition: good 15:07 Discharge instructions given to patient, family, Instructed on discharge instructions, follow up and referral plans. medication usage, Demonstrated understanding of instructions, follow-up care, medications, Prescriptions given X 2. 15:08 Patient left the ED. ap3 Signatures: Tiffanie Benoit FNP-C FNP-Killian Macy Evans WeldonFeliz RN RN 7 Annalee Frausto RN RN ap3
[2022-06-11 15:14] VITALS: BP 142/91; TEMP 98.2; O2SAT 100
== END 2022-06-11 15:08 | disposition home or self-care (01) ==
LOC: ER 13:39
DX: K08.89 Other specified disorders of teeth and supporting structures (principal)
CPT/HCPCS: 96372; 99283

== ENCOUNTER 2024-02-03 11:30 | Emergency (ER) | payer SELFPAY ==
[2024-02-03 12:28] LABS: Specific Gravity 1.007 (1.005-1.030)
[2024-02-03 12:32] LABS: Specific Gravity 1.007 (1.005-1.030); Sqamous Epithelial <5 /HPF (None Seen); Urine Bacteria <20 /HPF (<20); Urine Bilirubin NEGATIVE (Negative); Urine Blood Negative (Negative); Urine Clarity Turbid (Clear); Urine Color Colorless (Yellow); Urine Culture Reflex Order NOT NEEDED; Urine Glucose NEGATIVE (Negative); Urine Ketones NEGATIVE (Negative); Urine Microscopic Reflex YN ORDER UMIC; Urine Nitrite NEGATIVE (Negative); Urine Protein NEGATIVE (Negative); Urine RBC <5 /HPF (None Seen); Urine Urobilinogen Normal (Normal); Urine WBC <5 /HPF (<5); Urine pH 6.5 (5.0-7.0)
[2024-02-03] MEDS ORDERED: ONDANSETRON 4 MG/2 ML VIAL ONE ×2 (12:46→15:51)
[2024-02-03] MEDS ORDERED: NA CHLORIDE 0.9% 1,000 ML ONE (12:46)
[2024-02-03] MEDS ORDERED: FENTANYL CITR 100 MCG/2 ML ONE (12:46)
[2024-02-03 12:49] LABS: Absolute Basophils 0.1 K/uL (0-0.5); Absolute Eosinophils 0.1 K/uL (0-0.5); Absolute Lymphocytes (CBC) 0.4 K/uL (0.7-4.9); Absolute Monocytes 0.5 K/uL (0.1-1.3); Eosinophils % 0.9 % (0-4.4); Hematocrit 42.2 % (36.0-45.0); Hemoglobin 14.2 g/dL (12.0-15.0); Lymphocytes % 7.3 % (15.3-44.8); MCH 29.3 pg (27.0-35.0); MCHC 33.6 g/dL (32.0-36.0); MCV 87.3 fL (80-100); MPV 8.9 fL (7.6-11.3); Monocytes % 8.1 % (3.3-12.3); Neutrophils % 82.7 % (41.7-73.7); Platelets 302 thou/uL (152-406); RBC Red Blood Cell Count 4.84 M/uL (3.86-4.86); Red Cell Distribution Width 13.4 % (12.1-15.2)
[2024-02-03 13:10] LABS: ALT/SGPT 22 U/L (13-56); Albumin 3.8 g/dL (3.4-5.0); Alkaline Phosphatase 74 U/L (45-117); Anion Gap 11.7 mEq/L (5.0-15.0); BUN Blood Urea Nitrogen 8 mg/dL (7-18); Bicarbonate 22 mEq/L (21-32); Bilirubin Total 0.3 mg/dL (0.2-1.0); Globulin 3.8 g/dL (2.3-3.5); Glomerular Filtration Rate 105 ml/min (=/>90); Glucose Level 105 mg/dL (74-106); Lipase 31 U/L (13-75); Potassium 3.7 mEq/L (3.5-5.1); Protein, Total 7.6 g/dL (6.4-8.2); Sodium Level 135 mEq/L (136-145)
[2024-02-03 13:13] LABS: AST/SGOT < 10 U/L (15-37)
--- NOTE | 2024-02-03 13:53 | RAD REPORT ---
EXAM DESCRIPTION: CT - Abdomen Pelvis W Contrast - 02/03/2024 12:55 pm CLINICAL HISTORY: ABD PAIN COMPARISON: Abdomen Pelvis W Contrast dated 06/15/2021; Abdomen Pelvis W Contrast dated 8; Head Brain Wo Cont dated 02/03/2024 TECHNIQUE: Thin cut axial CT imaging of the abdomen and pelvis was performed following intravenous a dministration of 100 mL Isovue 300. Multiplanar reformats were generated and reviewed. All CT scans are performed using dose optimization technique as appropriate and may include automated exposure control or mA/KV adjustment according to patient size. FINDINGS: No suspicious findings in the lung bases. The liver, spleen, adrenal glands, and pancreas show no suspicious findings. Gallbladder and biliary tree are also without suspicious finding. Symmetric renal function is seen with no hydronephrosis or suspicious renal mass. Interval decrease in size of left upper quadrant and raj hepatis fluid. Some residual areas of trac e fluid adjacent to the gastric fundus, as well as some small cysts or possible loculations, largest measuring 2.5 cm along the greater curvature. Shunt catheter is again seen in the vicinity of the sto mach and anterior to the left liver lobe, including some segments of by the catheters in the subcutan eous tissue. Mild free fluid in the pelvis. No dilated bowel loops or bowel wall thickening. No free air or inflammatory stranding. No hernia, mass or bulky lymphadenopathy. The urinary bladder is witho ut significant finding. No suspicious bony findings. IMPRESSION: No acute intra-abdominal process. Some free fluid seen in the pelvis and in the left upper quadrant. There may be small loculations adj acent to the greater curvature, largest measuring 2.5 cm. Patient has a ventriculoperitoneal shunt.
--- NOTE | 2024-02-03 13:59 | RAD REPORT ---
EXAM DESCRIPTION: CT - Head Brain Wo Cont - 02/03/2024 12:55 pm CLINICAL HISTORY: HEADACHE COMPARISON: Head Brain Wo Cont dated 09/24/2023; Head Brain Wo Cont dated 08/06/2020 TECHNIQUE: Noncontrast head CT images ad were obtained without IV contrast. Multiplanar reformats we re generated and reviewed. All CT scans are performed using dose optimization technique as appropriate and may include automated exposure control or mA/KV adjustment according to patient size. FINDINGS: Sequelae of right parietal approach ventriculostomy shunt, with shunt tip terminates in th e region of the right ventricular body, stable. No intracranial hemorrhage, mass, or edema. Midline structures are unremarkable. Stable ventricular caliber. Stable descent of the cerebellar tonsils. 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 De-white matter differentiation is preserved, without evidence of acute infa rct. No abnormal extra-axial fluid collections. Mastoid air cells and visualized portions of the paranasal sinuses are clear. No acute bony findings. IMPRESSION: No evidence of an acute intracranial process. Stable ventricular caliber and position of the right ventriculostomy shunt. Other findings including corpus callosum dysgenesis, stigmata of Chiari II malformation, and an intra cranial lipoma.
--- NOTE | 2024-02-03 15:45 | ER ---
Nurse's Notes [facility] Name: Shanna Estrella Age: 28 yrs Sex: Female : 1995 Arrival Date: 02/03/2024 Time: 11:30 Bed 14 Private MD: Diagnosis: Abdominal pain, Generalized;Headache;Epileptic seizures related to external causes, not intractable, without status epilepticus Presentation: 02/02 11:50 Chief complaint: Patient states: intermittent abd pain x 4 years. HORN, abd pain, nausea/ ss vomiting and fatigue that began last night. Denies fever. Also reports some urinary frequency. Coronavirus screen: Client denies travel out of the [place] in the last 14 days. Ebola Screen: Patient denies exposure to infectious person. Patient denies travel to an Ebola-affected area in the 21 days before illness onset. Initial Sepsis Screen: Does the patient meet any 2 criteria? No. Patient's initial sepsis screen is negative. Does the patient have a suspected source of infection? No. Patient's initial sepsis screen is negative. Risk Assessment: Do you want to hurt yourself or someone else? Patient reports no desire to harm self or others. Onset of symptoms was February 02, 2024. 11:50 Method Of Arrival: Ambulatory ss 11:50 Acuity: ELI 3 ss Triage Assessment: 11:50 General: Appears in no apparent distress. Behavior is calm, cooperative. Neuro: Level ss of Consciousness is awake, alert, obeys commands, Oriented to person, place, time, situation. Respiratory: Respiratory effort is even, unlabored. 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 - Infectious Disease History:: Denies. - Social history:: Smoking status: Patient reports the use of cigarette tobacco products, smokes one-half pack cigarettes per day, Reported history of juuling and/or vaping. - Family history:: not pertinent. Screenin:05 [facility] ED Fall Risk Assessment (Adult) History of falling in the last 3 months, me1 including since admission No falls in past 3 months (0 pts) Confusion or Disorientation No (0 pts) Intoxicated or Sedated No (0 pts) Impaired Gait No (0 pts) Mobility Assist Device Used No (0 pt) Altered Elimination No (0 pt) Score/Fall Risk Level 0 - 2 = Low Risk Maintained a safe environment, Provided non-skid footwear, Hourly rounding (assess needs \T\ fall precautionary measures) done. Abuse screen: Denies threats or abuse. Nutritional screening: No deficits noted. Tuberculosis screening: No symptoms or risk factors identified. Assessment: 12:05 General: Appears uncomfortable, well developed, well nourished, Behavior is calm, me1 cooperative, appropriate for age, Reports intermittent abd pain x 4 years. HORN, abd pain, nausea/ vomiting and fatigue that began last night. Denies fever. Also reports some urinary frequency. Pain: Complains of pain in head and abdomen Pain does not radiate. Pain currently is 7 out of 10 on a pain scale. Quality of pain is described as aching, Pain began gradually, 1 day ago. Is continuous. Neuro: Level of Consciousness is awake, alert, obeys commands, Oriented to person, place, time, situation, Appropriate for age Reports headache. Cardiovascular: Patient's skin is warm and dry. Respiratory: Airway is patent Respiratory effort is even, unlabored, Respiratory pattern is regular, symmetrical. GI: Abdomen is round obese, Bowel sounds present X 4 quads. Abd is soft X 4 quads Reports upper abdominal pain, nausea, vomiting, since yesterday. : Reports urinary frequency. EENT: No signs and/or symptoms were reported regarding the EENT system. Derm: Skin is intact, is healthy with good turgor, Skin is pink, warm \T\ dry. Musculoskeletal: No signs and/or symptoms reported regarding the musculoskeletal system. Vital Signs: 11:50 BP 129 / 85; Pulse 107; Resp 16; Temp 98.1(TE); Pulse Ox 100% on R/A; Weight 83.91 kg; ss Height 5 ft. 2 in. ; Pain 3/10; 12:20 BP 121 / 86; Pulse 92; Resp 14; Pulse Ox 99% on R/A; me1 13:00 BP 108 / 75; Pulse 82; Resp 15; Pulse Ox 95% on R/A; me1 14:00 BP 105 / 76; Pulse 91; Resp 16; Pulse Ox 97% on R/A; me1 15:30 BP 110 / 80; Pulse 90; Resp 14; Pulse Ox 99% on R/A; me1 16:00 BP 117 / 83; Pulse 88; Resp 16; Pulse Ox 100% on R/A; me1 11:50 Body Mass Index 33.84 (83.91 kg, 157.48 cm) ss 11:50 Pain Scale: Adult ss Kelli Coma Score: 15:41 Eye Response: spontaneous(4). Motor Response: obeys commands(6). Verbal Response: rico oriented(5). Total: 15. ED Course: 11:32 Patient arrived in ED. rg4 11:50 Arm band placed on right wrist. ss 11:53 Triage completed. ss 11:59 Francisco Becerra MD is Attending Physician. rico 12:05 Annalee Frausto, BANG is Primary Nurse. ap3 12:05 Patient has correct armband on for positive identification. Bed in low position. Call me1 light in reach. Side rails up X 1. Provided Education on: POC. Verbalized understanding. . Client placed on continuous cardiac and pulse oximetry monitoring. NIBP monitoring applied. Pulse ox on. NIBP on. Warm blanket given. 12:05 No provider procedures requiring assistance completed. me1 12:28 Urinalysis w/ reflexes Sent. ap3 12:28 Urine collected: clean catch specimen, clear. ap3 12:37 Inserted saline lock: 22 gauge in right forearm, using aseptic technique. Blood bp collected. 12:50 Lipase Sent. ap3 12:50 Comprehensive Metabolic Panel Sent. ap3 12:50 CBC with Diff Sent. ap3 12:57 CT Abd/Pelvis - IV Contrast Only In Process Unspecified. EDMS 12:57 CT Head Brain wo Cont In Process Unspecified. EDMS 15:44 Fady Pierre MD is Referral Physician. rico 16:16 IV discontinued, intact, bleeding controlled, No redness/swelling at site. Pressure me1 dressing applied. Administered Medications: 12:50 Drug: NS 0.9% IV 1000 ml IV at 1 bolus Per protocol; 1000 mL bolus Route: IV; Rate: 1 ap3 bolus; Site: right forearm; 12:50 Drug: fentaNYL (PF) IVP 50 mcg IVP once Route: IVP; Site: right forearm; ap3 14:32 Follow up: Response: No adverse reaction; Pain is decreased me1 12:50 Drug: Ondansetron IVP 4 mg IVP once; over 2 minutes Route: IVP; Site: right forearm; ap3 14:32 Follow up: Response: No adverse reaction; Nausea is decreased me1 15:54 Drug: Depakote PO 500 mg PO once Route: PO; me1 16:07 Follow up: Response: No adverse reaction me1 15:54 Drug: Ketorolac IVP 30 mg IVP once Route: IVP; Site: right forearm; me1 16:07 Follow up: Response: No adverse reaction; Pain is decreased me1 15:54 Drug: Ondansetron IVP 4 mg IVP once; over 2 minutes Route: IVP; Site: right forearm; me1 16:07 Follow up: Response: No adverse reaction; Nausea is decreased me1 Medication: 12:05 VIS not applicable for this client. me1 Outcome: 15:44 Discharge ordered by . rico 16:16 Discharged to home ambulatory, with significant other, me1 16:16 Condition: stable 16:16 Discharge instructions given to patient, significant other, Instructed on discharge instructions, follow up and referral plans. the need for admit, Demonstrated understanding of instructions, follow-up care, medications, Prescriptions given X 3, 16:17 Patient left the ED. me1 Signatures: Dispatcher [employer] EDID Francisco Becerra MD MD cha Blanchard, Shelby RN RN ss Sveta Schneider rg4 Ga Ellison RN RN bp Annalee Frausto RN RN ap3 Mireya Pierre RN RN me1 Corrections: (The following items were deleted from the chart) 14:25 11:50 Chief complaint: Patient states: intermittent abd pain x 4 years. HORN, abd pain, me1 nausea/ vomiting and fatigue that began last night. Denies fever. Also reports some urinary frequency ss
--- NOTE | 2024-02-03 15:45 | EDPHYS ---
Physician Documentation [facility] Name: Shanna Estrella Age: 28 yrs Sex: Female : 1995 Arrival Date: 02/03/2024 Time: 11:30 Bed 14 Private MD: LISA Physician Francisco Becerra HPI: 02/02 15:37 This 28 yrs old Female presents to ER via Ambulatory with complaints of rico Abdominal Pain, Dizziness, Weakness. 15:37 The patient presents with dizziness, generalized weakness, lightheadedness. rico 15:38 The patient complains of pain to the forehead. The patient describes the headache as rico aching. Onset: The symptoms/episode began/occurred 1 week(s) ago. The patient presents with abdominal pain in the upper abdomen, in the lower abdomen, abdominal distention in the upper abdomen, in the lower abdomen. Onset: The symptoms/episode began/occurred 1 week(s) ago. Modifying factors: The symptoms are alleviated by nothing, the symptoms are aggravated by nothing. 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 - Infectious Disease History:: Denies. - Social history:: Smoking status: Patient reports the use of cigarette tobacco products, smokes one-half pack cigarettes per day, Reported history of juuling and/or vaping. - Family history:: not pertinent. ROS: 15:38 Constitutional: Negative for fever, chills, and weight loss, Eyes: Negative for injury, rico pain, redness, and discharge, ENT: Negative for injury, pain, and discharge, Neck: Negative for injury, pain, and swelling, Cardiovascular: Negative for chest pain, palpitations, and edema, Respiratory: Negative for shortness of breath, cough, wheezing, and pleuritic chest pain, Back: Negative for injury and pain, : Negative for injury, bleeding, discharge, and swelling, MS/Extremity: Negative for injury and deformity, Skin: Negative for injury, rash, and discoloration, Psych: Negative for depression, anxiety, suicide ideation, homicidal ideation, and hallucinations, Allergy/Immunology: Negative for hives, rash, and allergies, Endocrine: Negative for neck swelling, polydipsia, polyuria, polyphagia, and marked weight changes, Hematologic/Lymphatic: Negative for swollen nodes, abnormal bleeding, and unusual bruising, 15:38 Abdomen/GI: Positive for abdominal pain, of the right upper quadrant, left upper quadrant, right lower quadrant and left lower quadrant, 15:38 Neuro: Positive for headache, weakness, Exam: 15:38 Constitutional: This is a well developed, well nourished patient who is awake, alert, rico and in no acute distress. Head/Face: Normocephalic, atraumatic. Eyes: Pupils equal round and reactive to light, extra-ocular motions intact. Lids and lashes normal. Conjunctiva and sclera are non-icteric and not injected. Cornea within normal limits. Periorbital areas with no swelling, redness, or edema. ENT: Nares patent. No nasal discharge, no septal abnormalities noted. Tympanic membranes are normal and external auditory canals are clear. Oropharynx with no redness, swelling, or masses, exudates, or evidence of obstruction, uvula midline. Mucous membranes moist. Neck: Trachea midline, no thyromegaly or masses palpated, and no cervical lymphadenopathy. Supple, full range of motion without nuchal rigidity, or vertebral point tenderness. No Meningismus. Chest/axilla: Normal chest wall appearance and motion. Nontender with no deformity. No lesions are appreciated. Cardiovascular: Regular rate and rhythm with a normal S1 and S2. No gallops, murmurs, or rubs. Normal PMI, no JVD. No pulse deficits. Respiratory: Lungs have equal breath sounds bilaterally, clear to auscultation and percussion. No rales, rhonchi or wheezes noted. No increased work of breathing, no retractions or nasal flaring. Back: No spinal tenderness. No costovertebral tenderness. Full range of motion. Skin: Warm, dry with normal turgor. Normal color with no rashes, no lesions, and no evidence of cellulitis. MS/ Extremity: Pulses equal, no cyanosis. Neurovascular intact. Full, normal range of motion. Neuro: Awake and alert, GCS 15, oriented to person, place, time, and situation. Cranial nerves II-XII grossly intact. Motor strength 5/5 in all extremities. Sensory grossly intact. Cerebellar exam normal. Normal gait. Psych: Awake, alert, with orientation to person, place and time. Behavior, mood, and affect are within normal limits. 15:38 Abdomen/GI: Inspection: distension, that is mild, Bowel sounds: normal, Palpation: mild abdominal tenderness, in all quadrants, Liver: no appreciated palpable abnormalities, Hernia: not appreciated, 15:38 Musculoskeletal/extremity: ROM: intact in all extremities, full active range of motion, Circulation is intact in all extremities. Pulses: are normal with no appreciated deficits, Perfusion: the patient is normally perfused throughout, Sensation intact. Compartment Syndrome exam of affected extremity: is normal. Weight bearing: able to fully bear weight, without difficulty, DVT Exam: No signs of deep vein thrombosis. no pain, no swelling, no tenderness, negative Homans' sign noted on exam, no appreciated bluish discoloration, no erythema, no increased warmth, 15:38 Neuro: Exam negative for acute changes, focal neuro deficits, motor deficits, sensory deficits, cerebellar deficits, altered mental status, confusion, cranial nerve deficits, disorientation, dizziness, dysarthria, gait abnormality, memory loss, paresthesias, Romberg test, weakness, Orientation: is normal, Mentation: is normal, Memory: is normal, appropriate for stated age, no acute changes, Cranial nerves: grossly normal, is grossly normal based on the patient's age, no acute changes, Cerebellar function: is grossly normal, is grossly normal based on the patient's age, no acute changes, Motor: is normal, Sensation: is normal, Gait: not applicable Deep tendon reflexes are 2+ (normal) in the bilateral brachioradialis, bicep, tricep and patellar and Achilles tendons, Babinski testing is normal, seizure activity, is not displayed by the patient, Vital Signs: 11:50 BP 129 / 85; Pulse 107; Resp 16; Temp 98.1(TE); Pulse Ox 100% on R/A; Weight 83.91 kg; ss Height 5 ft. 2 in. ; Pain 3/10; 12:20 BP 121 / 86; Pulse 92; Resp 14; Pulse Ox 99% on R/A; me1 13:00 BP 108 / 75; Pulse 82; Resp 15; Pulse Ox 95% on R/A; me1 14:00 BP 105 / 76; Pulse 91; Resp 16; Pulse Ox 97% on R/A; me1 15:30 BP 110 / 80; Pulse 90; Resp 14; Pulse Ox 99% on R/A; me1 16:00 BP 117 / 83; Pulse 88; Resp 16; Pulse Ox 100% on R/A; me1 11:50 Body Mass Index 33.84 (83.91 kg, 157.48 cm) ss 11:50 Pain Scale: Adult ss Kelli Coma Score: 15:41 Eye Response: spontaneous(4). Motor Response: obeys commands(6). Verbal Response: rico oriented(5). Total: 15. MDM: 11:59 Patient medically screened. rico 15:41 Differential diagnosis: cluster headache, hypertensive headache, hypoglycemia, rico hyponatremia, migraine, subarachnoid bleed, subdural hematoma, temporal arteritis, tension headache, vasomotor headache, gastritis, Mesenteric ischemia or infarction, pancreatitis, Peptic Ulcer Disease, Pyelonephritis, Ureterolithiasis, urinary tract infection. Differential diagnosis: cardiac arrhythmia, CVA, generalized weakness, hypovolemia, idiopathic dizziness, near-syncope, , TIA, vertigo. Data reviewed: vital signs, nurses notes, lab test result(s), radiologic studies, CT scan. Consideration of Admission/Observation Escalation of care including admission/observation considered. I considered the following discharge prescriptions or medication management in the emergency department Medications were administered in the Emergency Department. See MAR. Test considered but Not performed: MRI: no mri brain. 02/02 12:01 Order name: CBC with Diff; Complete Time: 13:58 [facility] 02/02 12:01 Order name: Comprehensive Metabolic Panel; Complete Time: 13:58 [facility] 02/02 12:01 Order name: Lipase; Complete Time: 13:58 [facility] 02/02 12:01 Order name: Urinalysis w/ reflexes; Complete Time: 13:58 [facility] 02/02 12:01 Order name: PREGU; Complete Time: 13:58 [facility] 02/02 13:28 Order name: CREATININE WHOLE BLOOD; Complete Time: 13:58 EDMS 02/02 12:01 Order name: CT Abd/Pelvis - IV Contrast Only; Complete Time: 13:58 rico 02/02 12:01 Order name: CT Head Brain wo Cont; Complete Time: 14:40 rico Administered Medications: 12:50 Drug: NS 0.9% IV 1000 ml IV at 1 bolus Per protocol; 1000 mL bolus Route: IV; Rate: 1 ap3 bolus; Site: right forearm; 12:50 Drug: fentaNYL (PF) IVP 50 mcg IVP once Route: IVP; Site: right forearm; ap3 14:32 Follow up: Response: No adverse reaction; Pain is decreased me1 12:50 Drug: Ondansetron IVP 4 mg IVP once; over 2 minutes Route: IVP; Site: right forearm; ap3 14:32 Follow up: Response: No adverse reaction; Nausea is decreased me1 15:54 Drug: Depakote PO 500 mg PO once Route: PO; me1 16:07 Follow up: Response: No adverse reaction me1 15:54 Drug: Ketorolac IVP 30 mg IVP once Route: IVP; Site: right forearm; me1 16:07 Follow up: Response: No adverse reaction; Pain is decreased me1 15:54 Drug: Ondansetron IVP 4 mg IVP once; over 2 minutes Route: IVP; Site: right forearm; me1 16:07 Follow up: Response: No adverse reaction; Nausea is decreased me1 Disposition Summary: 02/03/24 15:44 Discharge Ordered Notes: Location: Home rico Problem: new rico Symptoms: have improved rico Condition: Stable rico Diagnosis - Abdominal pain, Generalized rico - Headache rico - Epileptic seizures related to external causes, not intractable, without status rico epilepticus Followup: rico - With: Private Physician - When: 2 - 3 days - Reason: Recheck today's complaints, Continuance of care, Re-evaluation by your physician Followup: rico - With: Fady Pierre MD - When: 2 - 3 days - Reason: Recheck today's complaints, Continuance of care, Re-evaluation by your physician Discharge Instructions: - Discharge Summary Sheet rico - Abdominal Pain, Adult rico - Abdominal Pain During rico - Epilepsy rico - General Headache Without Cause rico - Seizure, Adult rico - Seizure, Adult, [id number] rico - Epilepsy, [id number] rico - General Headache Without Cause, [id number] rico Forms: - Medication Reconciliation Form rico - Antibiotic Education rico - Prescription Opioid Use rico - Patient Portal Instructions [facility] - Leadership Thank You Letter [facility] Prescriptions: - ondansetron 4 mg Oral Tablet,disintegrating - take 1 tablet ORAL route every 6 to 8 hours as needed for nausea and vomiting; rico 20 tablet; Refills: 0, Product Selection Permitted - Depakote 250 mg Oral Tablet - take 1 tablet ORAL route every 12 hours; 60 tablet; Refills: 0, Product rico Selection Permitted - Diclofenac Sodium 75 mg Oral tablet, delayed release (enteric coated) - take 1 tablet ORAL route 2 times per day; 20 tablet; Refills: 0, Product rico Selection Permitted Signatures: Dispatcher [employer] EDMS Francisco Becerra MD MD cha Blanchard, Shelby RN RN ss Annalee Frausto RN RN ap3 Mireya Pierre RN RN me1 Corrections: (The following items were deleted from the chart) 12:01 12:01 CBC+H.LAB.BRZ ordered. EDMS EDMS 12: 12:01 COMPREHENSIVE METABOLIC PANEL+C.LAB.BRZ ordered. EDMS EDMS 12:01 12:01 LIPASE+C.LAB.BRZ ordered. EDMS EDMS 12:01 12:01 Urinalysis+U.LAB.BRZ ordered. EDMS EDMS 12:01 12:01 Test, Urine+UC.LAB.BRZ ordered. EDMS EDMS 12:01 12:01 Head Brain Wo Cont+CT.RAD.BRZ ordered. EDMS EDMS
[2024-02-03] MEDS ORDERED: KETOROLAC 30 MG/ML INJ ONE (15:51)
[2024-02-03] MEDS ORDERED: DIVALPROEX DR 250 MG TAB PO ONE (15:51)
[2024-02-03 16:29] VITALS: TEMP 98.1
[2024-02-03 16:49] VITALS: BP 117/83; O2SAT 100
== END 2024-02-03 16:17 | disposition home or self-care (01) ==
LOC: ER 11:30
DX: R10.84 Generalized abdominal pain (principal); R51.9 Headache, unspecified; G40.509 Epileptic seizures related to external causes, not intractable, without status epilepticus
CPT/HCPCS: 36415; 70450; 74177; 80053; 81001; 81025; 82565; 83690; 85025; J2405; J3010; J7030; Q9967